=== PATIENT | female | born 1965 | race Caucasian/White ===

== ENCOUNTER 2022-08-03 20:48 | Outpatient (OUT) | payer BC, SELFPAY | END 2022-08-03 20:49 | LOC: SLEEP 20:49 | PROVIDERS: PCP Family Medicine; Visit Provider Family Medicine | DX: G47.33 Obstructive sleep apnea (adult) (pediatric) (principal) | CPT/HCPCS: 95811 ==

== ENCOUNTER 2022-09-28 09:16 | Outpatient (OUT) | payer BC, SELFPAY ==
[2022-09-28 09:52] LABS: Basophils Percent Auto 0.3 % (0.2-2.0); Eosinophils Absolute Auto 0.1 10^3/uL (0.0-0.7); Eosinophils Percent Auto 1.5 % (0.9-7.0); Hemoglobin 13.9 g/dL (12.0-16.0); Immature Granulocytes Abs Auto 0.03 10^3/uL (0.00-0.03); Immature Granulocytes Pct Auto 0.4 % (0.0-0.5); Lymphocytes Absolute Auto 1.2 10^3/uL (1.2-3.8); Lymphocytes Percent Auto 16.4 % (20.5-60.0); Mean Corpuscular HGB Conc 33.1 g/dL (29.9-35.2); Mean Corpuscular Hemoglobin 29.8 pg (26.7-34.0); Mean Corpuscular Volume 90.1 fL (81.0-99.0); Mean Platelet Volume 10.9 fL (9.5-13.5); Monocytes Absolute Auto 0.7 10^3/uL (0.3-0.8); Monocytes Percent Auto 9.6 % (1.7-12.0); Neutrophils Absolute Auto 5.2 10^3/uL (1.4-6.5); Neutrophils Percent Auto 71.8 % (43.0-75.0); Platelet Count 194 10^3/uL (150-450); Red Blood Count 4.66 10^6/uL (4.20-5.40); Red Cell Distribution Width 13.6 % (11.0-15.0); White Blood Count 7.2 10^3/uL (4.0-11.0)
[2022-09-28 10:13] LABS: Estimated Average Glucose 143 mg/dL; Glycohemoglobin A1C 6.6 % (4.5-6.2)
[2022-09-28 10:32] LABS: Free T4 1.08 ng/dL (0.76-1.46)
[2022-09-28 10:42] LABS: Alanine Aminotransferase 31 U/L (14-59); Albumin Level 4.1 g/dL (3.4-5.0); Alkaline Phosphatase 59 U/L (46-116); Anion Gap 13.8; Aspartate Amino Transferase 17 U/L (15-37); Bilirubin Total 0.4 mg/dL (0.2-1.0); Calcium 9.1 mg/dL (8.5-10.1); Carbon Dioxide 26.4 mmol/L (21.0-32.0); Chloride 105 mmol/L (98-107); Chol HDL Ratio 4.3; Cholesterol 201 mg/dL (<=200); Estimated GFR (African America >60 (>=60); Estimated GFR (Non-African Ame 57 (>=60); Free T3 2.15 pg/mL (2.18-3.98); Globulin 4.1 g/dL; Glucose 142 mg/dL (74-106); HDL Cholesterol 47 mg/dL (40-60); Potassium 4.2 mmol/L (3.5-5.1); Sodium 141 mmol/L (136-145); Thyroid Stimulating Hormone 2.233 uIU/mL (0.358-3.740); Total Protein 8.2 g/dL (6.4-8.2); Triglycerides 166 mg/dL (<=150); VLDL CHOLESTEROL 33.2 mg/dL
== END 2022-09-28 09:17 | disposition home or self-care (01) ==
LOC: LAB 09:20
PROVIDERS: PCP Family Medicine; Visit Provider Family Medicine
DX: Z00.00 Encounter for general adult medical examination without abnormal findings (principal); Z79.899 Other long term (current) drug therapy
CPT/HCPCS: 36415; 80053; 80061; 83036; 84439; 84443; 84481; 85025

== ENCOUNTER 2023-01-13 18:23 | Emergency (ER) | payer BC, SELFPAY ==
[2023-01-13 18:28] VITALS: BP 155/74; PULSE 78; RESP 18; TEMP 36.6; O2SAT 97; BMI 38.8
--- NOTE | 2023-01-13 18:46 | ED.GENADUL1 ---
HPI - General Adult General Chief complaint: Recheck/Abnormal Lab/Rx Stated complaint: HYPERGLYCEMIA, BLURRED VISION, SHAKES Time Seen by Provider: 01/13/23 18:42 Source: patient Mode of arrival: walk-in Limitations: no limitations History of Present Illness HPI narrative: Patient is a 57-year-old female who presents to the emergency department for the evaluation of elevated blood sugar, feeling shaky and having trouble concentrating while at work approximately 3 hours ago. She denies any complaints of pain or nausea at this time. She states she works at [employer] and was having trouble concentrating and making food. She states she felt very shaky, she had no syncope, chest pain, shortness of breath. She has had no recent illness, fevers, vomiting. She has a Dexcom for type 2 diabetes, her blood sugar was 180 at work, her just rechecked it at 110. She states that her vision was blurry, she has not had any loss of vision or unilateral weakness. No speech changes. Related Data Home Medications Medication Instructions Recorded Confirmed aripiprazole 5 mg tablet 5 mg PO DAILY 01/13/23 01/13/23 blood sugar diagnostic (OneTouch 01/13/23 01/13/23 Verio test strips) bupropion HCl 300 mg 24 hr tablet, 300 mg PO DAILY 01/13/23 01/13/23 extended release empagliflozin 25 mg tablet 25 mg PO DAILY 01/13/23 01/13/23 (Jardiance) flash glucose scanning reader 01/13/23 01/13/23 (FreeStyle Kirsten 2 [employer]) flash glucose sensor (FreeStyle 01/13/23 01/13/23 Kirsten 2 Sensor kit) hyoscyamine sulfate 0.125 mg 0.125 mg PO DAILY PRN dyspepsia 01/13/23 01/13/23 sublingual tablet metformin 500 mg tablet 500 mg PO DAILY 01/13/23 01/13/23 nabumetone 500 mg tablet 500 mg PO BID 01/13/23 01/13/23 pioglitazone 45 mg tablet 45 mg PO DAILY 01/13/23 01/13/23 sertraline 100 mg tablet 100 mg PO DAILY 01/13/23 01/13/23 simvastatin 20 mg tablet 20 mg PO DAILY 01/13/23 01/13/23 sitagliptin phosphate 100 mg 100 mg PO DAILY 01/13/23 01/13/23 tablet (Januvia) Allergies Allergy/AdvReac Type Severity Reaction Status Date / Time cephalexin [From Keflex] Allergy Intermediate Verified 01/13/23 18:33 lisinopril Allergy Intermediate Verified 01/13/23 18:33 Review of Systems ROS Constitutional Denies: fever or chills Eyes Reports: blurry vision Ears, nose, mouth, and throat Denies: throat pain or nasal congestion Cardiovascular Denies: chest pain Respiratory Denies: shortness of breath or cough Gastrointestinal Denies: abdominal pain, nausea, vomiting or diarrhea Musculoskeletal Denies: back pain or neck pain Integumentary/Breast Denies: rash Neurological Denies: headache Hematologic/Lymphatic Denies: easy bruising Exam Narrative Exam Narrative: Gen.: Awake, alert, in no distress Head: Normocephalic, atraumatic ENT: Moist mucous membranes Respiratory: No respiratory distress, lungs clear bilaterally Cardio: Regular rate and rhythm Extremities: Moves extremities equally, no injuries noted Psych: Normal mood and affect Neuro: No focal neuro deficit; clear speech, no facial drooping, moves all extremities equally. Patient is able to recount the events of her day and recite all of her medications without difficulty. Skin: Warm, dry, intact Constitutional Vital Signs, click to edit/add: Last Vital Signs Temp 97.9 F 01/13/23 18:28 Pulse 69 01/13/23 21:01 Resp 18 01/13/23 19:41 BP 142/82 H 01/13/23 21:01 Pulse Ox 100 01/13/23 21:01 O2 Del Method Room Air 01/13/23 18:28 Course Vital Signs Vital signs: Vital Signs Temperature 97.9 F 01/13/23 18:28 Pulse Rate 78 01/13/23 18:28 Respiratory Rate 18 01/13/23 18:28 Blood Pressure 155/74 H 01/13/23 18:28 Pulse Oximetry 97 01/13/23 18:28 Oxygen Delivery Method Room Air 01/13/23 18:28 Temperature 97.9 F 01/13/23 18:28 Pulse Rate 69 01/13/23 21:01 Respiratory Rate 18 01/13/23 19:41 Blood Pressure 142/82 H 01/13/23 21:01 Pulse Oximetry 100 01/13/23 21:01 Oxygen Delivery Method Room Air 01/13/23 18:28 Medical Decision Making MDM Narrative Medical decision making narrative: Patient with no unilateral weakness, speech changes, visual loss in the emergency department. She has stable vital signs, she denies chest pain, shortness of breath. CT of the brain is unremarkable, lab studies within normal limits, although her urine is concentrated and her BUN is slightly elevated. She was treated with IV fluids in the ER. She has no focal medical complaints in the emergency department. She is well-hydrated and nontoxic at time of discharge with stable vital signs. Follow-up with PCP, patient was instructed that if her symptoms are related to fluctuations in her blood sugar, she should make her PCP Dr. Parry aware tomorrow for any medication adjustments that need to be made. Her blood sugar was 75 per her Dexcom prior to discharge. She was instructed to eat and drink regularly, take her medications as scheduled and follow-up with her PCP. Return to the ER if symptoms change or worsen. Medical Records Medical records reviewed: Yes I reviewed the patient's medical records Lab Data Lab results reviewed: Yes I reviewed the patient's lab results Labs: Lab Results 01/13/23 01/13/23 Range/Units 19:10 19:17 WBC 8.9 (4.0-11.0) 10^3/uL RBC 4.52 (4.20-5.40) 10^6/uL Hgb 13.8 (12.0-16.0) g/dL Hct 42.1 (36.0-48.0) % MCV 93.1 (81.0-99.0) fL MCH 30.5 (26.7-34.0) pg MCHC 32.8 (29.9-35.2) g/dL RDW 13.1 (11.0-15.0) % Plt Count 210 (150-450) 10^3/uL MPV 11.7 (9.5-13.5) fL Neut % (Auto) 67.8 (43.0-75.0) % Lymph % (Auto) 18.7 L (20.5-60.0) % [place] % (Auto) 11.8 (1.7-12.0) % Eos % (Auto) 1.1 (0.9-7.0) % Baso % (Auto) 0.2 (0.2-2.0) % Neut # (Auto) 6.0 (1.4-6.5) 10^3/uL Lymph # (Auto) 1.7 (1.2-3.8) 10^3/uL [place] # (Auto) 1.1 H (0.3-0.8) 10^3/uL Eos # (Auto) 0.1 (0.0-0.7) 10^3/uL Baso # (Auto) 0.0 (0.0-0.1) 10^3/uL Abs Immat Gran (auto) 0.04 H (0.00-0.03) 10^3/uL Imm/Tot Granulo (auto) 0.4 (0.0-0.5) % Sodium 139 (136-145) mmol/L Potassium 4.1 (3.5-5.1) mmol/L Chloride 104 (98-107) mmol/L Carbon Dioxide 24.5 (21.0-32.0) mmol/L Anion Gap 14.6 BUN 22.0 H (7.0-18.0) mg/dL Creatinine 1.05 H (0.55-1.02) mg/dL Est GFR ( Amer) >60 (>=60) Est GFR (Non-Af Amer) 54 L (>=60) BUN/Creatinine Ratio 21.0 Glucose 119 H (74-106) mg/dL Lactate 1.5 (0.4-2.0) mmol/L Calcium 9.1 (8.5-10.1) mg/dL Total Bilirubin 0.5 (0.2-1.0) mg/dL AST 18 (15-37) U/L ALT 30 (14-59) U/L Alkaline Phosphatase 62 (46-116) U/L Troponin I High Sens <4.0 L (4.0-51.3) pg/mL Total Protein 7.7 (6.4-8.2) g/dL Albumin 4.2 (3.4-5.0) g/dL Globulin 3.5 g/dL Albumin/Globulin Ratio 1.2 TSH 2.118 (0.358-3.740) uIU/mL Urine Color Lt. yellow (YELLOW) Urine Clarity Clear (CLEAR) Urine pH 6.0 (5.0-9.0) Ur Specific [place] <=1.005 A (1.005-1.025) Urine Protein Negative (NEG/TRACE) mg/dL Urine Glucose (UA) >=1000 A (NEGATIVE) mg/dL Urine Ketones Negative (NEGATIVE) mg/dL Urine Occult Blood Negative (NEGATIVE) Urine Nitrite Negative (NEGATIVE) Urine Bilirubin Negative (NEGATIVE) Urine Urobilinogen 0.2 (0.2-1.0) EU/dL Ur Leukocyte Esterase Negative (NEGATIVE) Acetone, Qual Negative (NEGATIVE) Imaging Data CT scan - head: Attestation: I have reviewed the pertinent imaging results. Radiologist's impression: Procedure: CT head/brain wo con EXAM: CT head/brain wo con; [id number] REASON FOR EXAM: Blurry vision COMPARISON: None. TECHNIQUE: Axial CT images of the head obtained without contrast. Multiplanar reformats generated at the scanner. Dose reduction technique used: Automated exposure control and/or adjustment of the mA and/or kV according to patient size and/or use of iterative reconstruction technique. FINDINGS: Parenchyma: -Normal parenchymal pattern. -No midline shift or mass effect. Basilar cisterns are patent. -No acute intracranial hemorrhage. -No loss of cortical london-white differentiation to indicate acute cortical infarct. Extra-axial spaces: No extra-axial fluid collection or hemorrhage. Ventricles: Normal in size and symmetric. Paranasal sinuses: Visualized paranasal sinuses are clear. Mastoid air cells: Visualized mastoids are clear. Visualized Orbits: No acute abnormality. Osseous: No acute findings. Soft tissues: No acute abnormality. IMPRESSION: 1. No acute intracranial abnormality demonstrated. 2. The visualized orbits are are within normal limits. Electronically authenticated by: MELINA GUTIERREZ Date: 01/13/2023 19:58 ECG Data Attestation: I personally reviewed and interpreted this ECG as follows: (Normal sinus rhythm at a rate of 67, no acute ST elevation or ectopy. EKG reviewed by attending physician) Discharge Plan Discharge Chief Complaint: Recheck/Abnormal Lab/Rx Clinical Impression: Blurry vision, Shakiness Patient Disposition: Home, Self-Care Time of Disposition Decision: 20:52 Condition: Good Prescriptions / Home Meds: No Action (DME) OneTouch Verio test strips Strip MISCELLANEOUS aripiprazole 5 mg tablet 5 mg PO DAILY bupropion HCl 300 mg tablet extended release 24 hr 300 mg PO DAILY Jardiance 25 mg tablet 25 mg PO DAILY hyoscyamine sulfate 0.125 mg tablet, sublingual 0.125 mg PO DAILY PRN (Reason: dyspepsia) (DME) FreeStyle Kirsten 2 Sensor Kit MISCELLANEOUS (DME) FreeStyle Kirsten 2 [employer] Misc MISCELLANEOUS metformin 500 mg tablet 500 mg PO DAILY nabumetone 500 mg tablet 500 mg PO BID pioglitazone 45 mg tablet 45 mg PO DAILY sertraline 100 mg tablet 100 mg PO DAILY simvastatin 20 mg tablet 20 mg PO DAILY Januvia 100 mg tablet 100 mg PO DAILY Instructions: Weakness (ED) Stand Alone Forms: Portal Instructions Referrals: Florencio Parry MD [Primary Care Provider] - As soon as possible Discharge Date/Time: 01/13/23 21:05
--- NOTE | 2023-01-13 18:57 | ECG_ITS ---
The [facility] Test Date: 2023-01-13 Pat Name: RJ PINZON Department: Room: - Gender: Female Clinical Trials Manager: : 1965 Requested By: JAJA DILL Order Number: [id number] Reading MD: JAJA DILL Measurements Intervals [place] Rate: 67 P: 56 NE: 158 QRS: 40 QRSD: 88 T: 31 QT: 404 QTc: 419 Interpretive Statements 1100 Sinus rhythm 9110 normal ECG No previous ECG available for comparison Electronically Signed On 01-14-2023 7:20:22 EST by JAJA DILL
--- NOTE | 2023-01-13 18:58 | CT_ITS ---
The [address] [address] Patient Name: RJ PINZON MRN: [id number] date: 1965 Sex: F Assigned Patient Location: ER Current Patient Location: ER Accession/Order Number: [id number] Exam Date: 01/13/2023 19:25 Report Date: 01/13/2023 19:58 At the request of: RUBEN FROST Procedure: CT head/brain wo con EXAM: CT head/brain wo con; [id number] REASON FOR EXAM: Blurry vision COMPARISON: None. TECHNIQUE: Axial CT images of the head obtained without contrast. Multiplanar reformats generated at the scanner. Dose reduction technique used: Automated exposure control and/or adjustment of the mA and/or kV according to patient size and/or use of iterative reconstruction technique. FINDINGS: Parenchyma: -Normal parenchymal pattern. -No midline shift or mass effect. Basilar cisterns are patent. -No acute intracranial hemorrhage. -No loss of cortical london-white differentiation to indicate acute cortical infarct. Extra-axial spaces: No extra-axial fluid collection or hemorrhage. Ventricles: Normal in size and symmetric. Paranasal sinuses: Visualized paranasal sinuses are clear. Mastoid air cells: Visualized mastoids are clear. Visualized Orbits: No acute abnormality. Osseous: No acute findings. Soft tissues: No acute abnormality. CT/CT head/brain wo con IMPRESSION: 1. No acute intracranial abnormality demonstrated. 2. The visualized orbits are are within normal limits. Electronically authenticated by: MELINA GUTIERREZ Date: 01/13/2023 19:58
--- NOTE | 2023-01-13 19:25 | PC.NURSE ---
Patient reports dizziness and visual changes; sudden onset, symptoms resolving. Denies any recent illness, reports I've been under a lot of stress .
[2023-01-13 19:27] LABS: Basophils Percent Auto 0.2 % (0.2-2.0); Eosinophils Absolute Auto 0.1 10^3/uL (0.0-0.7); Eosinophils Percent Auto 1.1 % (0.9-7.0); Hematocrit 42.1 % (36.0-48.0); Hemoglobin 13.8 g/dL (12.0-16.0); Immature Granulocytes Abs Auto 0.04 10^3/uL (0.00-0.03); Immature Granulocytes Pct Auto 0.4 % (0.0-0.5); Lymphocytes Absolute Auto 1.7 10^3/uL (1.2-3.8); Lymphocytes Percent Auto 18.7 % (20.5-60.0); Mean Corpuscular HGB Conc 32.8 g/dL (29.9-35.2); Mean Corpuscular Hemoglobin 30.5 pg (26.7-34.0); Mean Corpuscular Volume 93.1 fL (81.0-99.0); Mean Platelet Volume 11.7 fL (9.5-13.5); Monocytes Absolute Auto 1.1 10^3/uL (0.3-0.8); Monocytes Percent Auto 11.8 % (1.7-12.0); Neutrophils Percent Auto 67.8 % (43.0-75.0); Platelet Count 210 10^3/uL (150-450); Red Blood Count 4.52 10^6/uL (4.20-5.40); Red Cell Distribution Width 13.1 % (11.0-15.0); White Blood Count 8.9 10^3/uL (4.0-11.0)
[2023-01-13] MEDS: 0.9 % SODIUM CHLORIDE 1,000 ML 999 ML IV (19:38)
[2023-01-13 19:41] VITALS: BP 154/88; PULSE 68; RESP 18; O2SAT 100
[2023-01-13 19:44] LABS: Lactate/Lactic Acid 1.5 mmol/L (0.4-2.0)
[2023-01-13 19:44] LABS: Bilirubin Urine NEGATIVE (NEGATIVE); Blood Urine NEGATIVE (NEGATIVE); Clarity Urine CLEAR (CLEAR); Color Urine LT. YELLOW (YELLOW); Glucose Urine UA >=1000 mg/dL (NEGATIVE); Ketones Urine NEGATIVE (NEGATIVE); Leukocyte Esterase Urine NEGATIVE (NEGATIVE); Nitrite Urine NEGATIVE (NEGATIVE); Protein Urine NEGATIVE (NEG/TRACE); Specific Gravity Urine <=1.005 (1.005-1.025); Urobilinogen Urine 0.2 EU/dL (0.2-1.0)
[2023-01-13 19:51] LABS: Alanine Aminotransferase 30 U/L (14-59); Albumin Globulin Ratio 1.2; Albumin Level 4.2 g/dL (3.4-5.0); Alkaline Phosphatase 62 U/L (46-116); Anion Gap 14.6; Aspartate Amino Transferase 18 U/L (15-37); Bilirubin Total 0.5 mg/dL (0.2-1.0); Calcium 9.1 mg/dL (8.5-10.1); Carbon Dioxide 24.5 mmol/L (21.0-32.0); Chloride 104 mmol/L (98-107); Estimated GFR (African America >60 (>=60); Estimated GFR (Non-African Ame 54 (>=60); Globulin 3.5 g/dL; Glucose 119 mg/dL (74-106); Potassium 4.1 mmol/L (3.5-5.1); Sodium 139 mmol/L (136-145); Thyroid Stimulating Hormone 2.118 uIU/mL (0.358-3.740); Total Protein 7.7 g/dL (6.4-8.2); Troponin I High Sensitivity <4.0 pg/mL (4.0-51.3)
[2023-01-13 19:52] LABS: Urine Microscopic Indicated NO
[2023-01-13 20:37] LABS: Acetone NEGATIVE (NEGATIVE)
[2023-01-13 21:01] VITALS: BP 142/82; PULSE 69; O2SAT 100
== END 2023-01-13 21:05 | disposition home or self-care (01) ==
PROVIDERS: Physician Assistant; Emergency Provider Internal Medicine; PCP Family Medicine
DX: H53.8 Other visual disturbances (principal); G25.89 Other specified extrapyramidal and movement disorders; E11.9 Type 2 diabetes mellitus without complications; Z79.899 Other long term (current) drug therapy; Z79.84 Long term (current) use of oral hypoglycemic drugs
CPT/HCPCS: 36415; 70450; 80053; 81003; 82009; 83605; 84443; 84484; 85025; 93005; 99285

== ENCOUNTER 2023-04-12 12:08 | Outpatient (REF) | payer BC, SELFPAY ==
[2023-04-12 13:05] LABS: Influenza Virus A Antigen Negative; Influenza Virus B Antigen Negative; Internal Control Within Normal Limits; SARS-CoV-2 Ag NEGATIVE (NEGATIVE)
[2023-04-12 15:37] LABS: SARS-CoV-2 NAA NOT DETECTED (NOT DETECTE)
== END 2023-04-12 12:09 | disposition home or self-care (01) ==
LOC: LAB 12:08
PROVIDERS: PCP Family Medicine; Visit Provider Family Medicine
DX: J01.90 Acute sinusitis, unspecified (principal)
CPT/HCPCS: 87635; 87804; 87811

== ENCOUNTER 2023-05-12 14:40 | Emergency (ER) | payer BC, SELFPAY ==
[2023-05-12 14:45] VITALS: BP 150/90; PULSE 87; TEMP 36.6; O2SAT 96; BMI 38.7
--- NOTE | 2023-05-12 14:57 | ED.EXTPRO1 ---
HPI - Extremity Problem General Chief complaint: Extremity Problem, Nontraumatic Stated complaint: LOWER EXTREMITY PAIN L LEG Time Seen by Provider: 05/12/23 14:47 Source: patient Mode of arrival: walk-in Limitations: no limitations History of Present Illness HPI Narrative: 57-year-old female presents for left knee pain. She originally injured it in the fall 2021. She did not have any fractures and has not had surgery. She had her third cortisone injection 3 days ago but it does not seem to be helping and it seemed to get somewhat worse. No fever. No new injury. Pain is moderate and worse in certain positions. Related Data Home Medications ?Medication ?Instructions ?Recorded ?Confirmed aripiprazole 5 mg tablet 5 mg PO DAILY 01/13/23 01/13/23 blood sugar diagnostic (OneTouch 01/13/23 01/13/23 Verio test strips) bupropion HCl 300 mg 24 hr tablet, 300 mg PO DAILY 01/13/23 01/13/23 extended release empagliflozin 25 mg tablet 25 mg PO DAILY 01/13/23 01/13/23 (Jardiance) flash glucose scanning reader 01/13/23 01/13/23 (FreeStyle Kirsten [address] [place]) flash glucose sensor ([employer]Ign[employer]Style 01/13/23 01/13/23 Kirsten 2 Sensor kit) hyoscyamine sulfate 0.125 mg 0.125 mg PO DAILY PRN dyspepsia 01/13/23 01/13/23 sublingual tablet metformin 500 mg tablet 500 mg PO DAILY 01/13/23 01/13/23 nabumetone 500 mg tablet 500 mg PO BID 01/13/23 01/13/23 pioglitazone 45 mg tablet 45 mg PO DAILY 01/13/23 01/13/23 sertraline 100 mg tablet 100 mg PO DAILY 01/13/23 01/13/23 simvastatin 20 mg tablet 20 mg PO DAILY 01/13/23 01/13/23 sitagliptin phosphate 100 mg 100 mg PO DAILY 01/13/23 01/13/23 tablet (Januvia) Previous Rx's ?Medication ?Instructions ?Recorded acetaminophen 300 mg-codeine 30 mg 1 tab PO Q6H PRN pain 5 days #20 05/12/23 tablet tabs Allergies Allergy/AdvReac Type Severity Reaction Status Date / Time cephalexin [From Keflex] Allergy Intermediate Verified 05/12/23 14:44 lisinopril Allergy Intermediate Verified 05/12/23 14:44 Review of Systems ROS Narrative A ten point review of systems is negative except as noted above. Exam Narrative Exam Narrative: Nurses note and vital signs reviewed and patient is not hypoxic. General: The patient appears well and in no apparent distress. Patient is resting comfortably on cart. Skin: Warm, dry, no pallor noted. There is no rash noted. Head: Normocephalic, atraumatic Eye: Normal conjunctiva, no drainage Ears, Nose, Mouth, and Throat: oral mucosa is moist. Nares patent. Cardiovascular: Regular Rate and Rhythm Respiratory: Patient is in no distress, no accessory muscle use, lungs are clear to auscultation, no wheezing, rales or rhonchi Back: non-tender GI: Soft and nontender Musculoskeletal: The left knee is not erythematous and it is not visibly swollen. The knee joint is stable. It is not warm to touch. Neurological: A&O, normal speech Psychiatric: Cooperative Constitutional Vital Signs, click to edit/add: Last Vital Signs Temp 98 F 05/12/23 14:45 Pulse 87 05/12/23 14:45 Resp 18 05/12/23 14:45 BP 150/90 H 05/12/23 14:45 Pulse Ox 96 05/12/23 14:45 O2 Del Method Room Air 05/12/23 14:45 Course Vital Signs Vital signs: Vital Signs Temperature 98 F 05/12/23 14:45 Pulse Rate 87 05/12/23 14:45 Respiratory Rate 18 05/12/23 14:45 Blood Pressure 150/90 H 05/12/23 14:45 Pulse Oximetry 96 05/12/23 14:45 Oxygen Delivery Method Room Air 05/12/23 14:45 Temperature 98 F 05/12/23 14:45 Pulse Rate 87 05/12/23 14:45 Respiratory Rate 18 05/12/23 14:45 Blood Pressure 150/90 H 05/12/23 14:45 Pulse Oximetry 96 05/12/23 14:45 Oxygen Delivery Method Room Air 05/12/23 14:45 MDM - Extremity (Nontraumatic) MDM Narrative Medical decision making narrative: X-ray shows no acute findings. She was given IM Toradol and prescribed Tylenol 3. She will follow-up with her orthopedist. I have no clinical suspicion of an infection. Treatment diagnosis and follow-up were discussed with the patient. Differential Diagnosis Differential diagnosis: Likely other (Chronic knee pain, knee strain, effusion, septic arthritis) Imaging Data Left knee x-ray: Radiologist's impression: ITS Impressions Knee X-Ray 05/12/23 15:12 IMPRESSION: No acute radiographic abnormality Electronically authenticated by: MONSE DAWSON Date: 05/12/2023 15:43 Discharge Plan Discharge Stand Alone Forms: Portal Instructions Chief Complaint: Extremity Problem, Nontraumatic Clinical Impression: Knee pain, left Patient Disposition: Home, Self-Care Time of Disposition Decision: 16:06 Condition: Good Mode of Transportation: Private Vehicle Prescriptions / Home Meds: New acetaminophen-codeine 300-30 mg tablet 1 tab PO Q6H PRN (Reason: pain) 5 Days Qty: 20 0RF No Action (DME) OneTouch Verio test strips Strip MISCELLANEOUS aripiprazole 5 mg tablet 5 mg PO DAILY bupropion HCl 300 mg tablet extended release 24 hr 300 mg PO DAILY Jardiance 25 mg tablet 25 mg PO DAILY hyoscyamine sulfate 0.125 mg tablet, sublingual 0.125 mg PO DAILY PRN (Reason: dyspepsia) (DME) FreeStyle Kirsten 2 Sensor Kit MISCELLANEOUS (DME) FreeStyle Kirsten [address] [place] Misc MISCELLANEOUS metformin 500 mg tablet 500 mg PO DAILY nabumetone 500 mg tablet 500 mg PO BID pioglitazone 45 mg tablet 45 mg PO DAILY sertraline 100 mg tablet 100 mg PO DAILY simvastatin 20 mg tablet 20 mg PO DAILY Januvia 100 mg tablet 100 mg PO DAILY Print Language: German Instructions: Knee Pain (ED) Additional Instructions: Follow-up with your orthopedist if there is no improvement. Referrals: Florencio Parry MD [Primary Care Provider] - 1 week
--- NOTE | 2023-05-12 15:12 | XR_ITS ---
The [address] [address] Patient Name: RJ PINZON MRN: [id number] date: 1965 Sex: F Assigned Patient Location: ER Current Patient Location: ER Accession/Order Number: [id number] Exam Date: 05/12/2023 15:12 Report Date: 05/12/2023 15:43 At the request of: SOBEIDA JEFFERSON Procedure: XR knee LT 3V PROCEDURE: XR knee LT 3V COMPARISON: None. HISTORY: Atraumatic pain FINDINGS: BONES:No fracture, acute abnormality, or significant arthropathy. Enthesopathic spurring of the patella at the quadriceps insertion SOFT TISSUES:Negative. No visible soft tissue swelling. EFFUSION:None visible. OTHER: Negative. XR/XR knee LT 3V IMPRESSION: No acute radiographic abnormality Electronically authenticated by: MONSE DAWSON Date: 05/12/2023 15:43
[2023-05-12] MEDS: KETOROLAC TROMETHAMINE 60 MG/2 ML VIAL IM (16:15)
== END 2023-05-12 16:28 | disposition home or self-care (01) ==
PROVIDERS: Emergency Provider Emergency Medicine; PCP Family Medicine
DX: M25.562 Pain in left knee (principal); Z79.899 Other long term (current) drug therapy; Z79.84 Long term (current) use of oral hypoglycemic drugs
CPT/HCPCS: 73562; 96372; 99284

== ENCOUNTER 2023-10-21 16:19 | Outpatient (OUT) | payer BC, SELFPAY ==
--- OUTSIDE RECORDS SUMMARY | 2023-10-21 16:25 | XMS_ITS | CCD ---
Author Organization [facility] Care Team Providers Care Inspector Air Car[employer] Name Role Phone Dorys Flannery Unavailable Liliya Fletcher Unavailable MD Jaja Parry Primary Care Provider [phone] HAKEEM Fletcher Attending Provider Hudson Gu Unavailable FUENTES ., DR WILKINSON Admitting Unavailable HOY ., DR WILKINSON Attending Unavailable HOY ., DR WILKINSON Primary Care Unavailable HOY ., DR WILKINSON Consulting Unavailable HOY ., DR WILKINSON Admitting Unavailable HOY ., DR WILKINSON Attending Unavailable HOY ., DR WILKINSON Primary Care Unavailable HOY ., DR WILKINSON Consulting Unavailable LILIYA HUTTON Admitting Unavailable LILIYA HUTTON Attending Unavailable FUENTES ., DR WILKINSON Primary Care Unavailable HEMANT, DR NOHEMY Johnson Consulting Unavailable LILIYA HUTTON Consulting Unavailable HUDSON GU Admitting Unavailable HUDSON GU Attending Unavailable FUENTES ., DR WILKINSON Primary Care Unavailable VALORIE PEREZ Attending Unavailable Jaja Parry Primary Care Unavailable Gregg Nassar Attending Unavailable Gregg Nassar Admitting Unavailable MD Jaja Parry Primary Care Provider [phone] MD Gregg Nassar Attending Provider MD Jaja Parry Primary Care Provider [phone] MD Gregg Nassar Attending Provider Allergies Allergy Classification Reported Allergen(s) Allergy Type Date of Onset Reaction(s) Facility Angiotensin Converting Enzyme (ROSS) Inhibitors (1 source) Lisinopril Drug Allergy 4 Rash [facility] Cephalosporins (antibiotic) (1 source) Cephalexin Drug Allergy 4 Unknown Reaction [facility] (5 sources) Cephalexin; Translations: [Keflex] Drug Allergy 4 Unknown [facility] (1 source) Corticosteroids Drug allergy (disorder) 4 [facility] (1 source) DULoxetine Drug Allergy 4 [facility] (4 sources) Cephalexin Drug Allergy 4 Unknown Reaction [facility] (4 sources) Lisinopril Drug Allergy 4 Rash [facility] Medications Current Medications Medication Drug Class(es) Dates Sig (Normalized) Sig (Original) ARIPiprazole 5 mg oral tablet (10 sources) Atypical Antipsychotic Start: 05-09-2023 take 1 tablet by mouth once daily Aripiprazole Active 5 MG PO Daily May 09, 2023 12:00am FreeTextSi tablet Orally Once a day; Note: Source Status: Taking; Provider: Marga Flores ( ) take 1 tablet by larissa th every twenty-four hours ARIPiprazole 5 MG 1 tablet Orally Once a day Active Abilify Active 24 hr buPROPion hydrochloride 300 mg extended release oral tablet (8 sources) Aminoketone Start: 05-09-2023 take 1 tablet by mouth once daily in the morning Bupropion Hcl Active 1 TAB PO Daily May 09, 2023 12:00am [employer] tablet in the morning Orally Once a day; Note: Source Status: Taking; Provider: Marga Flores ( ) take 1 tablet by larissa th every twenty-four hours buPROPion HCl ER (XL) 300 MG 1 tablet in the morning Orally Once a day Active empagliflozin 25 mg oral tablet (6 sources) Sodium-Glucose Cotransporter 2 Inhibitor Start: 05-09-2023 take 1 tablet by mouth once daily Empagliflozin (Jardiance) 25 mg tablet Active 25 MG PO Daily May 09, 2023 12:00am lidocaine 0.05 mg/mg medicated patch (2 sources) Antiarrhythmic, Amide Local Anesthetic Start: 03-03-2022 Lidocaine 5 % 1 patch remove after 12 hours Externally Once a day for 30 days Feb, Active metFORMIN hydrochloride 500 mg oral tablet (10 sources) Biguanide Start: 05-09-2023 take 1 tablet by mouth once daily Metformin Active 500 MG PO Daily May 09, 2023 12:00am Free[employer] tablet with a meal Orally Once a day; Note: Source Status: Taking; Provider: Marga Flroes ( ) take 1 tablet by larissa th every twenty-four hours metFORMIN HCl 500 MG 1 tablet with a meal Orally Once a day Active metFORMIN HCl Ac tive nabumetone 500 mg oral tablet (8 sources) Nonsteroidal Anti-inflammatory Drug Start: 05-09-2023 take 1 tablet by mouth twice daily Nabumetone Active 1 TAB PO Twice daily May 09, 2023 12:00am FreeTextSi tablet Orally Twice a day; Note: Source Status: Taking; Provider: Marga Flores ( ) take 1 tablet by larissa th every twelve hours Nabumetone 500 MG 1 tablet Orally Twice a day Active ondansetron 4 mg oral tablet (1 source) Serotonin-3 Receptor Antagonist Start: 2021 take 1 tablet by mouth every eight hours as needed Zofran ODT 4 MG 1 tablet on the tongue and allow to dissolve Orally every 8 hrs as needed for 4 days Sep, Active pioglitazone 45 mg oral tablet (10 sources) Peroxisome Proliferator Receptor alpha Agonist, Peroxisome Proliferator Receptor gamma Agonist, Thiazolidinedione Start: 05-09-2023 take 1 tablet by mouth once daily Pioglitazone Active 45 MG PO Daily May 09, 2023 12:00am FreeTextSi tablet Orally Once a day; Note: Source Status: Taking; Provider: Marga Flores ( ) take 1 tablet by larissa th every twenty-four hours Pioglitazone HCl 45 MG 1 tablet Orally Once a day Active Actos Active sertraline 100 mg oral tablet (10 sources) Serotonin Reuptake Inhibitor Start: 05-09-2023 take 1 tablet by mouth once daily Sertraline Active 100 MG PO Daily May 09, 2023 12:00am FreeTextSi tablet Orally Once a day; Note: Source Status: Taking; Provider: Marga Flores ( ) take 1 tablet by mouth once rebeca y Sertraline HCl 100 MG 1 tablet Orally Once a day Active Zoloft Active Simvastatin (4 sources) HMG-CoA Reductase Inhibitor Simvastatin Active SITagliptin 100 mg oral tablet (8 sources) Dipeptidyl Peptidase 4 Inhibitor Start: take 1 tablet by mouth once daily Sitagliptin Phosphate Active 1 TAB PO Daily May 09, 2023 12:00am FreeTextSi tablet Orally Once a day; Note: Source Status: Taking; Provider: Marga Flores ( ) take 1 tablet by larissa th every twenty-four hours Januvia 100 MG 1 tablet Orally Once a day Active Tart Thapa (4 sources) Tart Thapa Acti ve traMADol hydrochloride 50 mg oral tablet (7 sources) Opioid Agonist Start: 10-13-2023 take 50 mg by mouth twice daily Tramadol Active 50 MG PO Twice daily 30 October 13, 2023 12:00am Start: 05-12-2023 End: 07-12-2023 take 50 mg by mouth every four to six hours Tramadol Discontinued 50 MG PO EVERY 4-6 HOURS 42 7 May 12, 2023 12:00am July 12, 2023 9:53am dispense #42 (forty two) DX: S83.207A Vit C-S.Xxuhpf-Oqatos-Cgnlx Sd (Tart Thapa) [id number] mg capsule (4 sources) Start: 07-12-2023 Vit C-S.Thapa -Celery-Grape Sd (Tart Thapa) [id number] mg capsule Active CAP PO July 12, 2023 12:00am Completed/Discontinued Medications Medication Drug Class(es) Dates Sig (Normalized) Sig (Original) triamcinolone acetonide 40 mg/ml injectable suspension (3 sources) Corticosteroid Start: 03-31-2022 Kenalog-40 Jul, 40 mg Problems Active Problems Problem Classification Problem Date Documented Date Episodic/Chronic Diabetes mellitus with complications (1 source) Type 2 diabetes mellitus with hyperglycemia; Translations: [TYPE 2 DM W/HYPERGLYCEMIA] Onset: 10-07-2021 Chronic Disorders of lipid metabolism (1 source) Hyperlipidemia, unspecified; Translations: [HYPERLIPIDEMIA UNSPECIFIED] Onset: 10-07-2021 Chronic Joint disorders and dislocations; trauma-related (18 sources) Unspecified tear of unspecified meniscus, current injury, left knee, initial encounter; Translations: [Unspecified tear of unspecified meniscus, current injury, left knee, subsequent encounter] Onset: 02-25-2022 Episodic Osteoarthritis (20 sources) Osteoarthritis of left knee joint; Translations: [Unilateral primary osteoarthritis, left knee] Onset: 03-09-2022 Chronic Other nervous system disorders (8 sources) Other chronic pain; Translations: [Other chronic pain] Onset: 07-12-2023 06-30-2023 Chronic Other nervous system disorders (4 sources) Chronic pain; Translations: [Other chronic pain] 06-30-2023 Chronic Other non-traumatic joint disorders (7 sources) Pain in left knee; Translations: [PAIN IN LEFT KNEE] Onset: 02-22-2022 Episodic Other non-traumatic joint disorders (13 sources) Pain in unspecified knee; Translations: [Knee pain] 06-17-2023 Episodic Residual codes; unclassified (4 sources) Obstructive sleep apnea (adult) (pediatric); Translations: [OBSTRUCTIVE SLEEP APNEA] Onset: 06-23-2022 Chronic Superficial injury; contusion (17 sources) Contusion of left knee, initial encounter; Translations: [Contusion of left knee] Episodic Past or Other Problems Problem Classification Problem Date Documented Da te Episodic/Chronic Deficiency and other anemia (1 source) Anemia, unspecified; Translations: [ANEMIA UNSPECIFIED] Onset: 10-07-2021 Episodic Immunizations and screening for infectious disease (1 source) Contact with and (suspected) exposure to other viral communicable diseases Onset: 2021 Resolved: 2021 Episodic Residual codes; unclassified (1 source) Edema, unspecified; Translations: [EDEMA UNSPECIFIED] Onset: 02-25-2022 Episodic Sprains and strains (1 source) Strain of other muscle(s) and tendon(s) at lower leg level, left leg, initial encounter; Translations: [STRAIN OTH MSC TEND LOW LT LEG INIT] Onset: 02-25-2022 Episodic Viral infection (1 source) COVID-19 Onset: 2021 Resolved: 2021 Results Test Name Value Interpretation Reference Range Facility MRI KNEE LT WO CONon 023 MRI KNEE LT WO CON EXAMINATION: MRI KNEE LT WO CON HISTORY: Pain of left knee joint ; acute anterior left knee pain after falling and landing on knee COMPARISON: No relevant comparison available. TECHNIQUE: A complete multi-planar MRI was performed. FINDINGS: MEDIAL COMPARTMENT MEDIAL MENISCUS: Undersurface tear posterior horn. Intrasubstance degeneration involving body and posterior junction. CARTILAGE: No visible defect. BONES: No marrow pathology, fracture, or significant arthropathy. MCL AND MEDIAL CAPSULE: Grade I sprain of the medial collateral ligament. LATERAL COMPARTMENT LATERAL MENISCUS: No visible tear or significant degeneration. CARTILAGE: No visible defect. BONES: No marrow pathology, fracture, or significant arthropathy. LCL/POSTEROLAT COMPLEX: Normal lateral collateral ligament, fascicles, lateral capsule and ligaments. ANTERIOR COMPARTMENT PATELLA: No marrow pathology, fracture, or significant arthropathy. CARTILAGE: Marked thinning of cartilage overlying medial facet. TENDONS: Normal. EFFUSION: None. No synovitis or loose bodies. ACL: Normal appearing ligament. PCL: Normal appearing ligament. MENISCOFEMORAL: Normal meniscofemoral ligaments. OTHER: Subcutaneous edema within fat anterior to patella and patellar tendon. IMPRESSION: 1. Medial meniscus posterior horn undersurface tear. 2. Medial collateral ligament mild strain. 3. Marked thinning of cartilage overlying medial facet of patella. 4. Subcutaneous edema within fat anterior to the knee consistent with patient's history. Electronically authenticated by: NOHEMY MARCOS Date: 2022-02-22 08:51 Normal [facility] XR knee LT 4V*on 12-12-2021 XR knee LT 4V* [facility] Other XR knee LT 4V* [facility] Other XR knee LT 4V* [address] [place] [address] [facility] Other XR knee LT 4V* [place] [address] No [facility] Other XR knee LT 4V* XRay Report [employer] Other XR knee LT 4V* Signed [employer] Other XR knee LT 4V* Patient: Susanne Clark MR#: [id number] Bruin [facility] Other XR knee LT 4V* [id number] [employer] Other XR knee LT 4V* : 1965 Acct:[id number] [employer] Other XR knee LT 4V* Age/Sex: 56 / F ADM Date: 12/12/21 [employer] Other XR knee LT 4V* Loc: XDUCLY Room: Type: REG CLI [employer] Other XR knee LT 4V* Attending Dr: Liliya PALACIO [employer] Other XR knee LT 4V* Copies to: HAKEEM Lim [employer] Other XR knee LT 4V* Ordering Provider: HAKEEM Lim [employer] Other XR knee LT 4V* Date of Service: 12/12/21 [employer] Other XR knee LT 4V* XR/XR knee LT 4V*: Acute pain of left knee [employer] Other XR knee LT 4V* XR knee LT 4V* 12/12/2021 12:41 PM [employer] Other XR knee LT 4V* SIGNS AND SYMPTOMS: Left knee pain after fall [employer] Other XR knee LT 4V* PROTOCOL: Frontal, lateral, and oblique radiographs of the left knee [employer] Other XR knee LT 4V* COMPARISON: None [employer] Other XR knee LT 4V* FINDINGS: [facility] [employer] Other XR knee LT 4V* There is mild narrowing of the patellofemoral joint space with minimal narrowing of the medial [employer] Other XR knee LT 4V* weightbearing joint space. There is no evidence of fracture. No dislocation or subluxation. No [employer] Other XR knee LT 4V* joint effusion. No significant soft tissue swelling. [employer] Other XR knee LT 4V* XR/XR knee LT 4V* [employer] Other XR knee LT 4V* IMPRESSION: [employer] Other XR knee LT 4V* No acute bony injury. [employer] Other XR knee LT 4V* Mild degenerative changes are noted, as above. [employer] Other XR knee LT 4V* Impression dictated by: Bernardo Camacho M.D.12/12/2021 12:59 PM [employer] Other XR knee LT 4V* Dictation Location: [place] [address] [employer] Other XR knee LT 4V* Transcribed By: PWS 12/12/21 1259 [employer] Other XR knee LT 4V* Dictated By: Bernardo Camacho II, MD 12/12/21 1258 [employer] Other XR knee LT 4V* Signed By: [employer] Other XR knee LT 4V* 12/12/21 1259 [employer] Other SARS-CoV-2 (COVID-19) RNA NA A+probe Ql (Resp)on 2021 SARS-CoV-2 (COVID-19) RNA ALYSSA+probe Ql (Unsp spec) Positive [employer] Other T4 [facility] 10-06-2021 T4 [Mass/Vol] 7.2 ug/dL Normal 4.5-12.0 [facility] Comment on above: Performed By: #### T 4LC #### [facility] [address] [place] [address] Dr. Yilan Ceballos VIT D 25-OH [facility] 2021 Vitamin D, 25-Hydroxy 33.8 ng/mL Normal 30.0-100.0 [facility] Comment on above: Result Comment: Divya min D deficiency has been defined by the [place] of [employer] and an Endocrine Society practice guideline as a level of serum 25-OH vitamin D less than 20 ng/mL (1,2). The Endocrine Society went on to further define vitamin D insufficiency as a level between 21 and 29 ng/mL (2). 1. IOM ([place] of [employer]). 2010. Dietary reference intakes for calcium and D. [place]: The National Academies Press. 2. Sundar MF, [place], Kimberly GIBSON, et al. Evaluation, treatment, and prevention of vitamin D deficiency: an Endocrine Society clinical practice guideline. JCEM. 2010; 96(7):1911-30. Performed By: #### V ITADLC #### [facility] [address] [place] [address] Dr. Chana Ceballos CBC AUTO DIFFon 10-05-2021 BASO # 0.0 103/ul Normal 0.0-0.1 [facility] Comment on above: Performed By: #### C BC #### [facility] [address] [place] [address] Dr. Chana Ceballos Basophils/100 WBC (Bld) 0.3 % Normal 0.2-2.0 [facility] Comment on above: Performed By: #### C BC #### [facility] [address] [place] [address] Dr. Chana Ceballos EO # 0.2 103/ul Normal 0.0-0.7 [facility] Comment on above: Performed By: #### C BC #### [facility] [address] [place] [address] Dr. Chana Ceballos Eosinophils/100 WBC (Bld) 2.1 % Normal 0.9-7.0 [facility] Comment on above: Performed By: #### C BC #### [facility] [address] [place] [address] Dr. Chana Ceballos Erythrocyte distribution width (RBC) [Ratio] 12.3 % Normal 11.0-15.0 [facility] Comment on above: Performed By: #### C BC #### [facility] [address] [place] [address] Dr. Chana Ceballos Hematocrit (Bld) [Volume fraction] 41.7 % Normal 36.0-48.0 [facility] Comment on above: Performed By: #### C BC #### [facility] [address] [place] [address] Dr. Chana Ceballos Hemoglobin (Bld) [Mass/Vol] 13.6 g/dL Normal 12.0-16.0 [facility] Comment on above: Performed By: #### C BC #### [facility] [address] [place] [address] Dr. Chana Ceballos IG # 0.04 10e3/ul Critically high 0.00-0.03 [facility] Comment on above: Performed By: #### C BC #### [facility] [address] [place] [address] Dr. Chana Ceballos IG % 0.6 % Critically high 0.0-0.[address] [facility] Comment on above: Performed By: #### C BC #### [facility] [address] [place] [address] Dr. Chana Ceballos LYMPH # 1.4 103/ul Normal 1.2-3.8 [facility] Comment on above: Performed By: #### C BC #### [facility] [address] [place] [address] Dr. Chana Ceballos Lymphocytes/100 WBC (Bld) 19.8 % Critically low 20.5-60.0 [facility] Comment on above: Performed By: #### C BC #### [facility] [address] [place] [address] Dr. Chana Ceballos MANUAL DIFF REQ NO Normal [facility] Comment on above: Performed By: #### C BC #### [facility] [address] [place] [address] Dr. Chana Ceballos MCH (RBC) [Entitic mass] 30.3 pg Normal 26.7-34.0 [facility] Comment on above: Performed By: #### C BC #### [facility] [address] [place] [address] [address] Chana Ceballos MCHC (RBC) [Mass/Vol] 32.6 g/dL Normal 29.9-35.2 [facility] Comment on above: Performed By: #### C BC #### [facility] [address] [place] [address] Dr. Chana Ceballos MCV (RBC) [Entitic vol] 92.9 fL Normal 81.0-99.0 [facility] Comment on above: Performed By: #### C BC #### [facility] [address] [place] [address] Dr. Chana Ceballos MONO # 0.7 103/ul Normal 0.3-0.8 [facility] Comment on above: Performed By: #### C BC #### [facility] [address] [place] [address] Dr. Chana Ceballos Monocytes/100 WBC (Bld) 10.2 % Normal 1.7-12.0 [facility] Comment on above: Performed By: #### C BC #### [facility] [address] [place] [address] Dr. Chana Ceballos NEUT # 4.7 103/ul Normal 1.4-6.5 [facility] Comment on above: Performed By: #### C BC #### [facility] [address] [place] [address] Dr. Chana Ceballos Neutrophils/100 WBC (Bld) 67.0 % Normal 43.0-75.0 [facility] Comment on above: Performed By: #### C BC #### [facility] [address] [place] [address] Dr. Chana Ceballos Platelet mean volume (Bld) [Entitic vol] 11.0 fL Normal 9.5-13.5 [facility] Comment on above: Performed By: #### C BC #### [facility] [address] [place] [address] Dr. Chana Ceballos PLT 212 103/ul Normal 150-450 [facility] Comment on above: Performed By: #### C BC #### [facility] [address] [place] [address] [address] Chana Ceballos WBC 7.1 103/ul Normal 4.0-11.0 [facility] Comment on above: Performed By: #### C BC #### [facility] [address] [place] [address] [address] Chana Ceballos FREE T3on 10-05-2021 FREE T3 2.32 pg/mlL Normal 2.18-3.98 [facility] Comment on above: Performed By: #### T SH, CMP, LIPID, FT3 #### [facility] [address] [place] [address] [address] Chana Ceballos GLYCOHEMOGLOBIN A1Con 2021 ADA RECOMMENDATION SEE BELOW Normal [facility] Comment on above: Result Comment: ADA RECOMMENDED LIMIT 4.0 - 6.0 ADA THERAPEUTIC TARGET < 7.0 ACTION SUGGESTED > 7.0 Performed By: #### A 1C #### [facility] [address] [place] [address] Dr. Chana Ceballos Glucose [Mass/Vol] 169 mg/dL Normal [facility] Comment on above: Performed By: #### A 1C #### [facility] [address] [place] [address] [address] Chana Ceballos HbA1c (Bld) [Mass fraction] 7.5 % Critically high 4.5-6.2 [facility] Comment on above: Performed By: #### A 1C #### [facility] [address] [place] [address] [address] Chana Ceballos LIPID PROFILEon 10-05-2021 CHOL-HDL RATIO NORM SEE BELOW Normal [facility] Comment on above: Result Comment: 3.3 - 4.4 LOW RISK 4.4 - 7.1 AVERAGE RISK 7.1 - 11.0 MODERATE RISK >11.0 HIGH RISK Performed By: #### T SH, CMP, LIPID, FT3 #### [facility] [address] [place] [address] [address] Chana Ceballos Cholesterol [Mass/Vol] 217 mg/dL Critically high <=200 [facility] Comment on above: Performed By: #### T SH, CMP, LIPID, FT3 #### [facility] [address] [place] [address] [address] Chana Ceballos Cholesterol in HDL [Mass/Vol] 38 mg/dL Critically low 40-60 [facility] Comment on above: Performed By: #### T SH, CMP, LIPID, FT3 #### [facility] [address] [place] [address] [address] Chana Ceballos Cholesterol in LDL [Mass/Vol] 137.4 mg/dL Normal [facility] Comment on above: Performed By: #### T SH, CMP, LIPID, FT3 #### [facility] [address] [address] [address] Chana Ceballos Cholesterol.total/Ch olesterol in HDL [Mass ratio] 5.7 {ratio} Normal [facility] Comment on above: Performed By: #### T SH, CMP, LIPID, FT3 #### [facility] [address] [place] [address] [address] Chana Ceballos HDL NORMAL > or = 60 mg/dl - LOW CARDIOVASCULAR RISK <40 mg/dl - HIGH CARDIOVASCULAR RISK Normal [facility] Comment on above: Performed By: #### T SH, CMP, LIPID, FT3 #### [facility] [address] [place] [address] [address] Chana Ceballos LDL CALC NORMAL SEE BELOW Normal [facility] Comment on above: Result Comment: <100 mg/dl OPTIMAL 100 - 129 mg/dl NEAR OR ABOVE OPTIMAL 130 - 159 mg/dl BORDERLINE HIGH 160 - 189 mg/dl HIGH >190 mg/dl VERY HIGH Performed By: #### T SH, CMP, LIPID, FT3 #### [facility] [address] [place] [address] [address] Chana Ceblalos Triglyceride [Mass/Vol] 208 mg/dL Critically high <=150 [facility] Comment on above: Performed By: #### T SH, CMP, LIPID, FT3 #### [facility] [address] [place] [address] [address] Chana Ceballos VLDL CALC 41.6 mg/dL Normal [facility] Comment on above: Performed By: #### T SH, CMP, LIPID, FT3 #### [facility] [address] [address] [address] Chana Ceblalos PROF 14(COMP METB)on 022 Albumin [Mass/Vol] 4.2 g/dL Normal 3.4-5.0 [facility] Comment on above: Performed By: #### T SH, CMP, LIPID, FT3 #### [facility] [address] [address] [address] Chana Ceballos Albumin/Globulin [Mass ratio] 1.2 {ratio} Normal [facility] Comment on above: Performed By: #### T SH, CMP, LIPID, FT3 #### [facility] [address] [place] [address] Dr. Chana Ceballos ALP [Catalytic activity/Vol] 61 U/L Normal 46-116 [facility] Comment on above: Performed By: #### T SH, CMP, LIPID, FT3 #### [facility] [address] [place] [address] Dr. Chana Ceballos ALT [Catalytic activity/Vol] 29 U/L Normal 14-59 [facility] Comment on above: Performed By: #### T SH, CMP, LIPID, FT3 #### [facility] [address] [place] [address] Dr. Chana Ceballos Anion gap [Moles/Vol] 14.3 mmol/L Normal [facility] Comment on above: Performed By: #### T SH, CMP, LIPID, FT3 #### [facility] [address] [place] [address] Dr. Chana Ceballos AST [Catalytic activity/Vol] 17 U/L Normal 15-37 [facility] Comment on above: Performed By: #### T SH, CMP, LIPID, FT3 #### [facility] [address] [place] [address] Dr. Chana Ceballos Bilirubin [Mass/Vol] 0.2 mg/dL Normal 0.2-1.0 [facility] Comment on above: Performed By: #### T SH, CMP, LIPID, FT3 #### [facility] [address] [address] [address] Chana Ceballos Calcium [Mass/Vol] 9.0 mg/dL Normal 8.5-10.1 [facility] Comment on above: Performed By: #### T SH, CMP, LIPID, FT3 #### [facility] [address] [address] [address] Chana Ceballos Chloride [Moles/Vol] 103 mmol/L Normal 98-107 [facility] Comment on above: Performed By: #### T SH, CMP, LIPID, FT3 #### [facility] [address] [address] [address] Chana Ceballos CO2 [Moles/Vol] 25.1 mmol/L Normal 21.0-32.0 [facility] Comment on above: Performed By: #### T SH, CMP, LIPID, FT3 #### [facility] [address] [place] [address] Dr. Chana Ceballos Creatinine [Mass/Vol] 0.93 mg/dL Normal 0.55-1.02 [facility] Comment on above: Performed By: #### T SH, CMP, LIPID, FT3 #### [facility] [address] [place] [address] Dr. Chana Ceballos EGFR-AF ENGLISH >60 Normal >=60 [facility] Comment on above: Performed By: #### T SH, CMP, LIPID, FT3 #### [facility] [address] [place] [address] Dr. Chana Ceballos EGFR-NON AF ENGLISH >60 Normal >=60 [facility] Comment on above: Performed By: #### T SH, CMP, LIPID, FT3 #### [facility] [address] [address] [address] Chana Ceballos Globulin (S) [Mass/Vol] 3.4 g/dL Normal [facility] Comment on above: Performed By: #### T SH, CMP, LIPID, FT3 #### [facility] [address] [address] [address] Chana Ceballos Glucose [Mass/Vol] 198 mg/dL Critically high 74-106 [facility] Comment on above: Performed By: #### T SH, CMP, LIPID, FT3 #### [facility] [address] [place] [address] Dr. Chana Ceballos Potassium [Moles/Vol] 4.4 mmol/L Normal 3.5-5.1 [facility] Comment on above: Performed By: #### T SH, CMP, LIPID, FT3 #### [facility] [address] [place] [address] Dr. Chana Ceballos Protein [Mass/Vol] 7.6 g/dL Normal 6.4-8.2 [facility] Comment on above: Performed By: #### T SH, CMP, LIPID, FT3 #### [facility] [address] [place] [address] Dr. Chana Ceballos Sodium [Moles/Vol] 138 mmol/L Normal 136-145 [facility] Comment on above: Performed By: #### T SH, CMP, LIPID, FT3 #### [facility] [address] [place] [address] Dr. Chana Ceballos Urea nitrogen [Mass/Vol] 18.0 mg/dL Normal 7.0-18.0 [facility] Comment on above: Performed By: #### T SH, CMP, LIPID, FT3 #### [facility] [address] [place] [address] Dr. Chana Ceballos Urea nitrogen/Creatinine [Mass ratio] 19.4 mg/mg Normal [facility] Comment on above: Performed By: #### T SH, CMP, LIPID, FT3 #### [facility] [address] [place] [address] Dr. Chana Ceballos TSHon 10-05-2021 TSH 2.219 uIU/mL Normal 0.358-3.740 [facility] Comment on above: Performed By: #### T SH, CMP, LIPID, FT3 #### [facility] [address] [place] [address] Dr. Chana Ceballos Vital Signs Date Time Vital Sign Value Performing Clinician Facility 07-12-2023 11:25-0400 Diastolic blood pressure 88 mm[Hg] MD Jaja Parry Work Phone: [facility] 07-12-2023 11:25-0400 Heart rate 82 /min MD Jaja Parry Work Phone: [facility] 07-12-2023 11:25-0400 Respiratory rate 16 /min MD Jaja Parry Work Phone: [facility] 07-12-2023 11:25-0400 SaO2% (BldA) [Mass fraction] 99 % MD Jaja Parry Work Phone: [facility] 07-12-2023 11:25-0400 Systolic blood pressure 138 mm[Hg] MD Jaja Parry Work Phone: [facility] 07-12-2023 10:51-0400 Inhaled oxygen flow rate 3 L/min MD Jaja Parry Work Phone: [facility] 07-12-2023 09:56-0400 Body height 167.64 cm MD Jaja Parry Work Phone: [facility] 07-12-2023 09:56-0400 Body weight 108.86 kg MD Jaja Parry Work Phone: [facility] 06-17-2023 08:47-0400 Body height 167.64 cm [facility] 06-17-2023 08:47-0400 Body mass index (BMI) [Ratio] 38.4 kg/m2 [facility] 06-17-2023 08:47-0400 Body weight 108 kg [facility] 05-09-2023 08:58-0400 Body height 167.64 cm [facility] 05-09-2023 08:58-0400 Body mass index (BMI) [Ratio] 38.7 kg/m2 [facility] 05-09-2023 08:58-0400 Body weight 108.94 kg [facility] 07-28-2022 08:15-0400 Body height 167.64 cm Hudson Gu Other [facility] Other 07-28-2022 08:15-0400 Body mass index (BMI) [Ratio] 38.73 kg/m2 Hudson Gu Other [facility] Other 07-28-2022 08:15-0400 Body weight 108.86 kg Hudson Gu Other [facility] Other 12-12-2021 13:05-0400 Body height 167.64 cm Liliya Fletcher Other [facility] Other 12-12-2021 13:05-0400 Body mass index (BMI) [Ratio] 35.51 kg/m2 Liliya Jean Baptistemond Other [facility] Other 12-12-2021 13:05-0400 Body temperature 97.9 [degF] Liliya Jean Baptistemond Other [facility] Other 12-12-2021 13:05-0400 Body weight 99.79 kg Liliya Jean Baptistemond Other [facility] Other 12-12-2021 13:05-0400 Diastolic blood pressure 74 mm[Hg] Liliya Jean Baptistemond Other [facility] Other 12-12-2021 13:05-0400 Respiratory rate 18 /min Liliya Jean Baptistemond Other [facility] Other 12-12-2021 13:05-0400 SaO2% (BldA) [Mass fraction] 99 % Liliya Justine Other [facility] Other 12-12-2021 13:05-0400 Systolic blood pressure 138 mm[Hg] Liliya Justine Other [facility] Other 2021 12:30-0400 Body height 167.64 cm Dorys Flannery Other [facility] Other 2021 12:30-0400 Body mass index (BMI) [Ratio] 36.31 kg/m2 Dorys Flannery Other [facility] Other 2021 12:30-0400 Body temperature 97 [degF] Dorys Flannery Other [facility] Other 2021 12:30-0400 Body weight 102.06 kg Dorys Flannery Other [facility] Other Encounters Encounter Date Encounter Type Care Provider Facility Start: 10-13-2023 End: 10-13-2023 ambulatory MD Jaja Parry Work Phone: [facility] Work Phone: Start: 10-13-2023 End: 10-13-2023 Patient encounter procedure MD Jaja Parry Work Phone: [facility] Work Phone: Start: 08-01-2023 End: 08-01-2023 ambulatory MD Jaja Parry Work Phone: [facility] Work Phone: Start: 08-01-2023 End: 08-01-2023 Patient encounter procedure MD Jaja Parry Work Phone: [facility] Work Phone: Start: 07-12-2023 Non-patient / Non-visit MD Linnea Parry Work Phone: [facility] Work Phone: Start: 07-12-2023 End: 07-12-2023 Admission to same day surgery center MD Jaja Parry Work Phone: [facility] Work Phone: Start: 07-12-2023 End: 07-12-2023 ambulatory Jaja Parry Facility:[facility] Start: 06-30-2023 End: 06-30-2023 Patient encounter procedure MD Jaja Parry Work Phone: [facility] Work Phone: Start: 06-17-2023 End: 06-17-2023 ambulatory [facility] Work Phone: Start: 06-17-2023 End: 06-17-2023 Patient encounter procedure [facility] Work Phone: Start: 05-09-2023 End: 05-09-2023 ambulatory [facility] Work Phone: Start: 05-09-2023 End: 05-09-2023 Patient encounter procedure [facility] Work Phone: Start: 02-02-2023 End: 02-02-2023 ambulatory VALORIE JOSEPHO Not Available Start: 07-28-2022 End: 07-28-2022 ambulatory Hudson Gu Other [facility] Other Start: 07-28-2022 Office outpatient vi sit 25 minutes Hudson ENGLE [facility] Start: 06-23-2022 End: 06-24-[address] JAJA PARRY . Facility:[facility] Start: 06-14-2022 End: 06-14-2022 ambulatory Hudson Gu Other [facility] Other Start: 06-14-2022 Telephone encounter Hudson BEVERLY G [facility] Start: 03-09-2022 End: 04-08-2022 ambulatory HUDSON GU Facility:[facility] Start: 02-22-2022 End: 02-23-2022 ambulatory LILIYA HUTTON Facility:[facility] Start: 12-12-2021 Office outpatient vi sit 15 minutes Liliya Fletcher [facility] Start: 12-12-2021 End: 12-12-2021 ambulatory MD Jaja Parry Work Phone: [facility] Other Start: 12-12-2021 End: 12-12-2021 Patient encounter procedure MD Jaja Parry Work Phone: [facility] Start: 2021 End: 2021 ambulatory Dorys Flannery Other [employer] [facility] [email or web address] Other Start: 2021 Office outpatient ne w 20 minutes Dorys Flannery [facility] Start: 10-07-2021 Encounter for genera l adult medical examination without abnormal findings DR JAJA PARRY . [facility] Start: 10-05-2021 End: 10-06-[address] JAJA PARRY . Facility: Start: 10-05-2021 End: 10-06-2021 Encounter for general adult medical examination without abnormal findings DR JAJA PARRY . Facility: Procedures Date Procedure Procedure Detail Performing Clinician Start: 10-13-2023 X-ray of left knee MD Dolores Parry Work Phone: Start: 07-12-2023 Radiofrequency destr uction of peripheral nerve MD Jaja Parry Work Phone: Start: 12-12-2021 Radiologic examinati on of knee MD Jaja Parry Work Phone: Plan of Treatment Date Care Activity Detail Author Start: 10-13-2023 X-ray of left knee XR knee LT 2V Fir [facility] Start: 10-13-2023 XR Knee - left 2 Views [facility] Start: 07-12-2023 [facility] Patient Education Know your Meds Felter Non Diagnostic Block [facility] Work Phone: Patient referral [facility] Work Phone: Payers Date Payer Category Payer Self-pay 2012 Unknown [id number] 1965 Unknown [id number] [id number] 1965 Unknown [id number] 2.16.84 [id number] 1965 Unknown [id number] 2.16.84 [id number] 1965 Unknown [id number] 2.16.84 [id number] 1965 Unknown [id number] 1961 Blue Cross Blue Shield [id number] Unknown [employer] [id number] Unknown [id number] [id number] Social History Date Type Detail Facility Sex Assigned At [facility] Other Start: 1965 Sex Assigned At Female F [facility] Goals Date Patient Goal Desired Activity /State Clinical Notes 2021 to 07-12-2023 Note Date & Type Note Facility 07-12-2023 Procedure note [facility] 05-09-2023 Evaluation note Authored May 09, 2023 9:1 6am We performed a 4/1cc Marcain e / Kenalog cortisone injection into the knee joint under sterile technique. Patient tolerated the injection well without adverse reaction. Patient can follow up as needed. Note scribed by ESEQUIEL Valle, reviewed and amended by myself Hudson Gu D.O. [facility] Work Phone: 1(200) 140-935606-14-2023 Evaluation note* Encounter Date Diagnosis Assessment Notes Treatment Notes Treatment Clinical Notes Jul, Primary osteoarthritis of left knee (ICD-10 - M17.12) Jul, Acute meniscal tear of left knee, initial encounter (ICD-10 - S83.207A) Jul, Acute pain of left knee (ICD-10 - M25.562) Jul, Contusion of left knee, initial encounter (ICD-10 - S80.02XA) Susanne presents with left knee contusion and anterior knee pain. At this juncture we have discussed the findings and diagnosis as well as personally reviewed appropriate imaging and performed interpretation of related testing and examination with the patient in office today. We extensively reviewed her MRI and I do not think the structural issues seen on MRI are causing any problems. She has tenderness over her anterior knee where she had initial contusion a few months ago. She has extreme sensitivity here which continues. This is not improved. We did discuss genicular blocks prior but she had good relief with the intra-articular cortisone injection. She would like to repeat this. Today under sterile technique patient's left knee was injected via the inferolateral portal with 4 cc Marcaine 1 cc of Kenalog. She tolerated this well. Follow-up as needed The patient has been involved in our cooperative treatment plan and agrees to move forward with treatment at this time. Susanne returns with a complaint of left knee pain. She previously had treatment with cortisone injection and reported 4 months of relief. She elects to continue to treat with cortisone injection today. We performed a 1/1cc marcaine / kenalog cortisone injection into the knee joint under sterile technique. Patient tolerated the injection well without adverse reaction. [facility] Other 05-01-2023 Evaluation note* Encounter Date Diagnosis Assessment Notes Treatment Notes Treatment Clinical Notes June, Acute meniscal tear of left knee, initial encounter (ICD-10 - S83.207A) [facility] Other 10-29-2022 Evaluation note* Encounter Date Diagnosis Assessment Notes Treatment Notes Treatment Clinical Notes Nov, Acute pain of left knee (ICD-10 - M25.562) Nov, Contusion of left knee, initial encounter (ICD-10 - S80.02XA) Wear the Ross wrap for comfort and compression. Take ibuprofen, 600 mg 3-4 times a day with food as needed for pain and swelling. Ice and elevate your knee 2-3 times a day. Try to take frequent breaks at work to rest your knee. Follow-up with your family physician if no improvement by Tuesday or . Nov, Other Contusion mater ial was printed [facility] Other 08-28-2022 Evaluation note* Encounter Date Diagnosis Assessment Notes Treatment Notes Treatment Clinical Notes Sep, Contact with and (suspected) exposure to other viral communicable diseases (ICD-10 - Z20.828) Sep, COVID-19 (ICD-10 - U07.1) Today you tested positive for the COVID virus. This mean you need to follow all CDC quarantine guidelines found at [email or web address]. It is important to rest, increase fluids, and stay at home. Recommend contacting primary care provider and discussing best course of action if you have chronic health conditions. COVID POSITIVE education handout discharge instructions. given. [facility] Other Evaluation noteNo assessment information available [facility] Work Phone: Evaluation note* Author Mare Ramirez [facility] Authored May 09, 2023 9:1 6am We performed a 4/1cc Marcain e / Kenalog cortisone injection into the knee joint under sterile technique. Patient tolerated the injection well without adverse reaction. Patient can follow up as needed. Note scribed by ESEQUIEL Valle, reviewed and amended by myself Hudson Gu D.O. [facility] Work Phone: Evaluation note* Diagnosis Onset Date Resolution Status Chronic pain acute Knee pain acute Osteoarthritis of left knee acute Chronic pain acute Contusion of left knee acute Knee pain acute Osteoarthritis of left knee acute [facility] Work Phone: History general Narrative - Reported* Type Description Date Medical History diabetes Surgical History c-sections - 2 Surgical History oophorectomy Surgical History hysterectomy [facility] Other History general Narrative - Reported* Type Description Date Medical History diabetes Medical History high cholesterol Surgical History c-sections - 2 Surgical History oophorectomy Surgical History hysterectomy [facility] Other Chief Complaint and Reason for Visit Chief Complaint M25.562 Chief Complaint OP SP LT KNEE PAIN R EQUESTING Reason for Visit Acute meniscal tear of left knee Contusion of left knee Osteoarthritis of left knee Chief Complaint OP SP LT KNEE PAIN R EQUESTING OP SP LT KNEE PAIN, DID NOT IMPROVE Reason for Visit Acute meniscal tear of left knee Contusion of left knee Osteoarthritis of left knee Acute meniscal tear of left knee Contusion of left knee Osteoarthritis of left knee Chief Complaint OP SP LT KNEE PAIN R EQUESTING OP SP LT KNEE PAIN, DID NOT IMPROVE NEW CONSULT DR GU LT KNEE PAIN Knee Pain Knee Pain F/U AFTER LEFT GENICULAR BLOCK Reason for Visit Acute meniscal tear of left knee Contusion of left knee Osteoarthritis of left knee Contusion of left knee Knee pain Chronic pain Knee pain Osteoarthritis of left knee Chronic pain Knee pain Osteoarthritis of left knee Chief Complaint OP SP LT KNEE PAIN R EQUESTING OP SP LT KNEE PAIN, DID NOT IMPROVE NEW CONSULT DR GU LT KNEE PAIN Knee Pain Knee Pain Reason for Visit Acute meniscal tear of left knee Contusion of left knee Osteoarthritis of left knee Contusion of left knee Knee pain Chronic pain Knee pain Osteoarthritis of left knee Chief Complaint F/U AFTER LEFT GENIC ULAR BLOCK LT KNEE PAIN M25.569 - Pain in unspecified knee Reason for Visit Chronic pain Knee pain Osteoarthritis of left knee Chronic pain Contusion of left knee Knee pain Osteoarthritis of left knee Advance Directives Advance Directive Response Recorded Date/ Time Advance Directives No December 12, 2021 1:39pm Summary Purpose Family History Relationship Condition Age at Onset Recorded Date/T maddie father Heart disease Unknown Unknown Diabetes mellitus Unknown Hypertension Unknown Not Specified Malignant neoplasm Unknown History of stroke Unknown Relationship Condition Age at Onset Recorded Date/T maddie father Heart disease Unknown Unknown Diabetes mellitus Unknown Hypertension Unknown mother Malignant neoplasm Unknown History of stroke Unknown Additional Source Comments REASON FOR VISIT (unrecogniz ed section and content) SILVER SANTINO, SORE THROAT, SINUS CONGESTION, FEVERLEFT KNEE PAINNo InformationRecheck Left Knee Care Teams (unrecognized sec tion and content) Team Status: Inactive Member Role Status Dates Jaja Parry MD Primary Care Provider Active HAKEEM Hogue Attending Provider Active Team Status: Active Member Role Status Dates Jaja Parry MD Primary Care Provider Active Team Status: Inactive Member Role Status Natacha Parry MD Primary Care Provider Active Start: May 09, 2023 End: May 09, 2023 Hudson Gu DO Attending Provider Active S tart: May 09, 2023 End: May 09, 2023 Team Status: Inactive Member Role Status Natacha Parry MD Primary Care Provider Active Start: June 17, 2023 End: June 17, 2023 Hudson Gu DO Attending Provider Active S tart: June 17, 2023 End: June 17, 2023 Team Status: Inactive Member Role Status Natacha Parry MD Primary Care Provider Active Start: June 30, 2023 End: June 30, 2023 Gregg Nassar MD Attending Provider Active Sta rt: June 30, 2023 End: June 30, 2023 Team Status: Inactive Member Role Status Natacha Parry MD Primary Care Provider Active Start: July 12, 2023 End: July 12, 2023 Gregg Nassar MD Attending Provider Active Sta rt: July 12, 2023 End: July 12, 2023 Team Status: Active Member Role Status Natacha Parry MD Primary Care Provider Active Start: July 12, 2023 Gregg Nassar MD Attending Provider, Other Provider Active Start: July 12, 2023 Team Status: Inactive Member Role Status Natacha Parry MD Primary Care Provider Active Start: August 01, 2023 End: August 01, 2023 Gregg Nassar MD Attending Provider Active Sta rt: August 01, 2023 End: August 01, 2023 Team Status: Inactive Member Role Status Natacha Parry MD Primary Care Provider Active Start: October 13, 2023 End: October 13, 2023 Gregg Nassar MD Attending Provider Active Sta rt: October 13, 2023 End: October 13, 2023 Team Status: Active Member Role Status Natacha Parry MD Primary Care Provider Active Start: October 13, 2023 Gregg Nassar MD Attending Provider Active Sta rt: October 13, 2023 Goals (unrecognized section and content) Goals may be documented in a n alternate section INFORMATION SOURCE (unrecogn ized section and content) DATE CREATED AUTHOR 06/27/2022 [facility] DATE CREATED AUTHOR AUTHOR'S ORGANIZ ATION 02/03/2023 [facility] DATE CREATED AUTHOR AUTHOR'S ORGANIZ ATION 07/22/2023 [facility] FOR RECORDS PERTAINING TO PATIENTS WHO ARE OR HAVE BEEN ENROLLED IN A CHEMICAL DEPENDENCY/SUBSTANCEABUSE PROGRAM, SOME INFORMATION MAY BE OMITTED. This clinical summary was aggregated from multiple sources. Caution should be exercised in using it in the provision of clinical care. This summary normalizes information from multiple sources, and as a consequence, information in this document may materially change the coding, format and clinical context of patient data. In addition, data may be omitted in some cases. CLINICAL DECISIONS SHOULD BE BASED ON THE PRIMARY CLINICAL RECORDS. [facility] [employer] provides no warranty or guarantee of the accuracy or completeness of information in this document.
--- NOTE | 2023-10-21 16:53 | US_ITS ---
The [address] [address] Patient Name: RJ PINZON MRN: [id number] date: 1965 Sex: F Assigned Patient Location: US Current Patient Location: US Accession/Order Number: [id number] Exam Date: 10/21/2023 17:15 Report Date: 10/21/2023 19:42 At the request of: JAJA DILL Procedure: US venous doppler LE RT EXAM: US venous doppler LE RT HISTORY: Localized Edema, R50.0 COMPARISON: None. TECHNIQUE: Multiple sonographic images of the deep veins of the right lower extremity were obtained, supplemented with Doppler. FINDINGS: The deep veins of the right lower extremity are fairly well-visualized the groin to the mid calf. No filling defect is identified to indicate a thrombus. There is normal compression augmentation to flow throughout. US/US venous doppler LE RT IMPRESSION: There is no direct or indirect evidence of deep vein thrombosis in the right lower extremity at this time. Electronically authenticated by: NAMITA IBARRA Date: 10/21/2023 19:42
== END 2023-10-21 16:20 | disposition home or self-care (01) ==
LOC: US 16:20
PROVIDERS: PCP Family Medicine; Visit Provider Family Medicine
DX: R60.0 Localized edema (principal)
CPT/HCPCS: 93971

== ENCOUNTER 2023-11-29 07:40 | Outpatient (OUT) | payer BC, SELFPAY ==
--- OUTSIDE RECORDS SUMMARY | 2023-11-29 07:48 | XMS_ITS | CCD ---
Author Organization [facility] Care Team Providers Care Sheather Name Role Phone Dorys Flannery Unavailable Liliya Fletcher Unavailable MD Jaja Parry Primary Care Provider [phone] HAKEEM Fletcher Attending Provider [phone] Hudson Gu Unavailable FUENTES ., DR WILKINSON Admitting Unavailable HOY ., DR WILKINSON Attending Unavailable HOY ., DR WILKINSON Primary Care Unavailable HOY ., DR WILKINSON Consulting Unavailable HOY ., DR WILKINSON Admitting Unavailable HOY ., DR WILKINSON Attending Unavailable HOY ., DR WILKINSON Primary Care Unavailable HOY ., DR WILIKNSON Consulting Unavailable LILIYA HUTTON Admitting Unavailable LILIYA HUTTON Attending Unavailable FUENTES ., DR WILKINSON Primary Care Unavailable HEMANT, DR NOHEMY Johnson Consulting Unavailable LILIYA HUTTON Consulting Unavailable HUDSON GU Admitting Unavailable HUDSON GU Attending Unavailable FUENTES ., DR WILKINSON Primary Care Unavailable VALORIE PEREZ Attending Unavailable MD Jaja Parry Primary Care Provider [phone] MD Gregg Nassar Attending Provider [phone] MD Jaja Parry Primary Care Provider [phone] MD Gregg Nassar Attending Provider Gregg Nassar Attending Unavailable Jaja Parry Primary Care Unavailable Gregg Nassar Admitting Unavailable Jaja Parry Primary Care Unavailable Gregg Nassar Admitting Unavailable Gregg Nassar Attending Unavailable Allergies Allergy Classification Reported Allergen(s) Allergy Type Date of Onset Reaction(s) Facility Angiotensin Converting Enzyme (ROSS) Inhibitors (1 source) Lisinopril Drug Allergy [address] [place] [address] Cephalosporins (antibiotic) (1 source) Cephalexin Drug Allergy 4 Unknown Reaction [facility] (5 sources) Cephalexin; Translations: [Keflex] Drug Allergy 4 Unknown [facility] (1 source) Corticosteroids Drug allergy (disorder) 4 [facility] (1 source) DULoxetine Drug Allergy 4 [facility] (4 sources) Cephalexin; Translations: [cephalexin] Drug Allergy 4 Unknown Reaction [facility] (4 sources) Lisinopril; Translations: [lisinopril] Drug Allergy 4 Rash [facility] Medications Current Medications Medication Drug Class(es) Dates [...] 50 MG PO EVERY 4-6 HOURS 42 May 12, 2023 12:00am July 12, 2023 9:53am dispense #42 (forty two) DX: S83.207A Vit C-S.Iapazs-Ytkufb-Ljbfp Sd (Tart Thapa) [id number] mg capsule (4 sources) Start: 07-12-2023 Vit C-S.Thapa -Celery-Grape Sd (Tart Thapa) 19-261-89-75-20 mg capsule Active CAP PO July 12, [...] Onset: 03-09-2022 Chronic Other nervous system disorders (4 sources) Chronic pain; Translations: [Other chronic pain] 06-30-2023 Chronic Other nervous system disorders (8 sources) Other chronic pain; Translations: [Other chronic pain] Onset: 07-12-2023 06-30-2023 Chronic Other non-traumatic joint disorders (8 sources) Pain in left knee; Translations: [PAIN [...] Test Name Value Interpretation Reference Range Facility XR knee LT 2Von 10-13-2023 XR knee LT 2V [facility] [address] [place] [address] XRay Report Signed Patient: Susanne Clark MR#: [id number] : 1965 Acct:[id number] Age/Sex: 58 / F ADM Date: 10/13/23 Loc: [facility] Room: Type: [facility] Attending Dr: Gregg Nassar MD Copies to: Gregg Nassar MD Ordering Provider: Gregg Nassar MD Date of Service: 10/13/23 XR/XR knee LT 2V: M25.569 - Pain in unspecified knee LEFT KNEE - 2 views CLINICAL HISTORY: Left knee pain status post injury. COMPARISON: None FINDINGS: No joint effusion. Minimal degenerative change without acute bony process. XR/XR knee LT 2V IMPRESSION: MINIMAL DEGENERATIVE CHANGE WITHOUT ACUTE BONY PROCESS. Impression dictated by: Freedom Foster Jr., D.O.10/13/2023 12:32 PM Dictation Location: [place] [address] Transcribed By: [facility] 10/13/23 1232 Dictated By: Freedom Foster Jr, DO 10/13/23 1231 Signed By: 10/13/23 1232 Normal [facility] MRI KNEE LT WO CONon 023 MRI [...] by: NOHEMY MARCOS Date: 2022-02-22 08:51 Normal [facility] XR knee LT 4V*on 12-12-2021 XR knee LT 4V* [facility] [employer] Other XR knee LT 4V* [facility] [employer] Other XR knee LT 4V* [address] [place] [address] [employer] Other XR knee LT 4V* [place] [address] No rt [employer] Other XR knee LT 4V* XRay Report [employer] Other XR knee LT 4V* Signed [employer] Other XR knee LT 4V* Patient: Susanne Clark MR#: [id number] [employer] Other XR knee LT 4V* [id number] [employer] Other XR knee LT 4V* : 1965 Acct:[id number] [employer] Other XR knee LT 4V* Age/Sex: 56 / F ADM Date: 12/12/21 [facility] Other XR knee LT 4V* Loc: [facility] Room: Type: [facility] [employer] Other XR knee LT 4V* Attending Dr: Liliya PALACIO [employer] Other XR knee LT 4V* Copies to: HAKEEM Lim [employer] Other XR knee LT 4V* Ordering Provider: HAKEEM Lim [employer] Other XR knee LT 4V* Date of Service: 12/12/21 [employer] Other XR knee LT 4V* XR/XR knee LT 4V*: Acute pain of left knee [employer] Other XR knee LT 4V* XR knee LT 4V* 12/12/2021 12:41 PM [employer] Other XR knee LT 4V* SIGNS AND SYMPTOMS: Left knee pain after fall [employer] Other XR knee LT 4V* PROTOCOL: Frontal, lateral, and oblique radiographs of the left knee [employer] Other XR knee LT 4V* COMPARISON: None Nort [employer] Other XR knee LT 4V* FINDINGS: [employer] Other XR knee LT 4V* There is mild narrowing of the patellofemoral joint space with minimal narrowing of the medial [employer] Other XR knee LT 4V* weightbearing joint space. There is no evidence of fracture. No dislocation or subluxation. No [employer] Other XR knee LT 4V* joint effusion. No significant soft tissue swelling. [employer] Other XR knee LT 4V* XR/XR knee LT 4V* [employer] Other XR knee LT 4V* IMPRESSION: [employer] Other XR knee LT 4V* No acute bony injury. [employer] Other XR knee LT 4V* Mild degenerative changes are noted, as above. [employer] Other XR knee LT 4V* Impression dictated by: Bernardo Camacho M.D.12/12/2021 12:59 PM [employer] Other XR knee LT 4V* Dictation Location: [place] [address] [employer] Other XR knee LT 4V* Transcribed By: PWS 12/12/21 1259 [employer] Other XR knee LT 4V* Dictated By: Bernardo Camacho II, MD 12/12/21 1258 [employer] Other XR knee LT 4V* Signed By: [employer] Other XR knee LT 4V* 12/12/21 1253 [employer] Other SARS-CoV-2 (COVID-19) RNA NA A+probe Ql (Resp)on 2021 SARS-CoV-2 (COVID-19) RNA ALYSSA+probe Ql (Unsp spec) Positive [facility] Other T4 [facility] 10-06-2021 T4 [Mass/Vol] 7.2 ug/dL Normal 4.5-12.0 [facility] Comment on above: Performed By: #### T 4LC #### [facility] [address] [address] [address] Chana Ceballos VIT D 25-[place] [facility] 2021 Vitamin D, 25-Hydroxy 33.8 ng/mL Normal 30.0-100.0 [facility] Comment on above: Result Comment: Divya min D deficiency has been defined by the [place] of Medicine and an Endocrine Society practice guideline as a level of serum 25-OH vitamin D less than 20 ng/mL (1,2). The Endocrine Society went on to further define vitamin D insufficiency as a level between 21 and 29 ng/mL (2). 1. IOM ([place] of Medicine). 2010. Dietary reference intakes for calcium and D. [place]: The National Academies Press. 2. Sundar MF, Dinorah RIVERA, Kimberly GIBSON et al. Evaluation, treatment, and prevention of vitamin D deficiency: an Endocrine Society clinical practice guideline. JCEM. 2010; 96(7):1911-30. Performed By: #### V ITADLC #### [facility] [address] [place] [address] Dr. Chana Ceballos CBC AUTO DIFFon 10-05-2021 BASO # 0.0 103/ul Normal 0.0-0.1 [facility] Comment on above: Performed By: #### C BC #### [facility] [address] [place] [address] Dr. Chana Ceballos Basophils/100 WBC (Bld) 0.3 % Normal 0.2-2.0 [facility] Comment on above: Performed By: #### C BC #### [facility] [address] [place] [address] Dr. Chana Ceballos EO # 0.2 103/ul Normal 0.0-0.7 [facility] Comment on above: Performed By: #### C BC #### [facility] [address] [place] [address] Dr. Chana Ceballos Eosinophils/100 WBC (Bld) 2.1 % Normal 0.9-7.0 [facility] Comment on above: Performed By: #### C BC #### [facility] [address] [place] [address] Dr. Chana Ceballos Erythrocyte distribution width (RBC) [Ratio] 12.3 % Normal 11.0-15.0 [facility] Comment on above: Performed By: #### C BC #### [facility] [address] [place] [address] Dr. Chana Ceballos Hematocrit (Bld) [Volume fraction] 41.7 % Normal 36.0-48.0 [facility] Comment on above: Performed By: #### C BC #### [facility] [address] [place] [address] Dr. Chana Ceballos Hemoglobin (Bld) [Mass/Vol] 13.6 g/dL Normal 12.0-16.0 [facility] Comment on above: Performed By: #### C BC #### [facility] [address] [place] [address] [address] Chana Ceballos IG # 0.04 10e3/ul Critically high 0.00-0.03 [facility] Comment on above: Performed By: #### C BC #### [facility] [address] [place] [address] [address] Chana Ceballos IG % 0.6 % Critically high 0.0-0.5 [facility] Comment on above: Performed By: #### C BC #### [facility] [address] [place] [address] Dr. Chana Ceballos LYMPH # 1.4 103/ul Normal 1.2-3.8 [facility] Comment on above: Performed By: #### C BC #### [facility] [address] [place] [address] Dr. Chana Ceballos Lymphocytes/100 WBC (Bld) 19.8 % Critically low 20.5-60.0 [facility] Comment on above: Performed By: #### C BC #### [facility] [address] [place] [address] Dr. Chana Ceblalos MANUAL DIFF REQ NO Normal [facility] Comment on above: Performed By: #### C BC #### [facility] [address] [place] [address] Dr. Chana Ceballos MCH (RBC) [Entitic mass] 30.3 pg Normal 26.7-34.0 [facility] Comment on above: Performed By: #### C BC #### [facility] [address] [place] [address] Dr. Chana Ceballos MCHC (RBC) [Mass/Vol] 32.6 g/dL Normal 29.9-35.2 [facility] Comment on above: Performed By: #### C BC #### [facility] [address] [place] [address] Dr. Chana Ceballos MCV (RBC) [Entitic vol] 92.9 fL Normal 81.0-99.0 [facility] Comment on above: Performed By: #### C BC #### [facility] [address] [place] [address] Dr. Chana Ceballos MONO # 0.7 103/ul Normal 0.3-0.8 [facility] Comment on above: Performed By: #### C BC #### [facility] [address] [place] [address] Dr. Chana Ceballos Monocytes/100 WBC (Bld) 10.2 % Normal 1.7-12.0 [facility] Comment on above: Performed By: #### C BC #### [facility] [address] [place] [address] Dr. Chana Ceballos NEUT # 4.7 103/ul Normal 1.4-6.5 [facility] Comment on above: Performed By: #### C BC #### [facility] [address] [place] [address] Dr. Chana Ceballos Neutrophils/100 WBC (Bld) 67.0 % Normal 43.0-75.0 [facility] Comment on above: Performed By: #### C BC #### [facility] [address] [place] [address] Dr. Chana Ceballos Platelet mean volume (Bld) [Entitic vol] 11.0 fL Normal 9.5-13.5 [facility] Comment on above: Performed By: #### C BC #### [facility] [address] [place] [address] Dr. Chana Ceballos PLT 212 103/ul Normal 150-450 [facility] Comment on above: Performed By: #### C BC #### [facility] [address] [place] [address] Dr. Chana Ceballos WBC 7.1 103/ul Normal 4.0-11.0 [facility] Comment on above: Performed By: #### C BC #### [facility] [address] [place] [address] Dr. Chana Ceballos FREE T3on 10-05-2021 FREE T3 2.32 pg/mlL Normal 2.18-3.98 [facility] Comment on above: Performed By: #### T SH, CMP, LIPID, FT3 #### [facility] [address] [place], [place] [id number] Dr. Chana Ceballos GLYCOHEMOGLOBIN A1Con 2021 ADA RECOMMENDATION SEE BELOW Normal [facility] Comment on above: Result Comment: ADA RECOMMENDED LIMIT 4.0 - 6.0 ADA THERAPEUTIC TARGET < 7.0 ACTION SUGGESTED > 7.0 Performed By: #### A 1C #### [facility] [address] [place] [address] Dr. Chana Ceballos Glucose [Mass/Vol] 169 mg/dL Normal [facility] Comment on above: Performed By: #### A 1C #### [facility] [address] [place] [address] Dr. Chana Ceballos HbA1c (Bld) [Mass fraction] 7.5 % Critically high 4.5-6.2 [facility] Comment on above: Performed By: #### A 1C #### [facility] [address] [place] [address] Dr. Chana Ceballos LIPID PROFILEon 10-05-2021 CHOL-HDL RATIO NORM SEE BELOW Normal [facility] Comment on above: Result Comment: 3.3 - 4.4 LOW RISK 4.4 - 7.1 AVERAGE RISK 7.1 - 11.0 MODERATE RISK >11.0 HIGH RISK Performed By: #### T SH, CMP, LIPID, FT3 #### [facility] [address] [place] [address] Dr. Chana Ceballos Cholesterol [Mass/Vol] 217 mg/dL Critically high <=200 [facility] Comment on above: Performed By: #### T SH, CMP, LIPID, FT3 #### [facility] [address] [place] [address] Dr. Chana Ceballos Cholesterol in HDL [Mass/Vol] 38 mg/dL Critically low 40-60 [facility] Comment on above: Performed By: #### T SH, CMP, LIPID, FT3 #### [facility] [address] [place] [address] Dr. Chana Ceballos Cholesterol in LDL [Mass/Vol] 137.4 mg/dL Normal [facility] Comment on above: Performed By: #### T SH, CMP, LIPID, FT3 #### [facility] [address] [address] [address] Chana Ceballos Cholesterol.total/Ch olesterol in HDL [Mass ratio] 5.7 {ratio} Normal [facility] Comment on above: Performed By: #### T SH, CMP, LIPID, FT3 #### [facility] [address] [address] [address] Chana Ceballos HDL NORMAL > or = 60 mg/dl - LOW CARDIOVASCULAR RISK <40 mg/dl - HIGH CARDIOVASCULAR RISK Normal [facility] Comment on above: Performed By: #### T SH, CMP, LIPID, FT3 #### [facility] [address] [address] [address] Chana Ceballos LDL CALC NORMAL SEE BELOW Normal [facility] Comment on above: Result Comment: <100 mg/dl OPTIMAL 100 - 129 mg/dl NEAR OR ABOVE OPTIMAL 130 - 159 mg/dl BORDERLINE HIGH 160 - 189 mg/dl HIGH >190 mg/dl VERY HIGH Performed By: #### T SH, CMP, LIPID, FT3 #### [facility] [address] [address] [address] Chana Ceballos Triglyceride [Mass/Vol] 208 mg/dL Critically high <=150 [facility] Comment on above: Performed By: #### T SH, CMP, LIPID, FT3 #### [facility] [address] [address] [address] Chana Ceballos VLDL CALC 41.6 mg/dL Normal [facility] Comment on above: Performed By: #### T SH, CMP, LIPID, FT3 #### [facility] [address] [address] [address] Chana Ceballos PROF 14(COMP METB)on 022 Albumin [Mass/Vol] 4.2 g/dL Normal 3.4-5.[address] [facility] Comment on above: Performed By: #### T SH, CMP, LIPID, FT3 #### [facility] [address] [address] [address] Chana Ceballos Albumin/Globulin [Mass ratio] 1.2 {ratio} Normal [facility] Comment on above: Performed By: #### T SH, CMP, LIPID, FT3 #### [facility] [address] [place] [address] Dr. Chana Ceballos ALP [Catalytic activity/Vol] 61 U/L Normal 46-116 [facility] Comment on above: Performed By: #### T SH, CMP, LIPID, FT3 #### [facility] [address] [place] [address] Dr. Chana Ceballos ALT [Catalytic activity/Vol] 29 U/L Normal 14-59 [facility] Comment on above: Performed By: #### T SH, CMP, LIPID, FT3 #### [facility] [address] [place] [address] Dr. Chana Ceballos Anion gap [Moles/Vol] 14.3 mmol/L Normal [facility] Comment on above: Performed By: #### T SH, CMP, LIPID, FT3 #### [facility] [address] [place] [address] Dr. Chana Ceballos AST [Catalytic activity/Vol] 17 U/L Normal 15-37 [facility] Comment on above: Performed By: #### T SH, CMP, LIPID, FT3 #### [facility] [address] [place] [address] Dr. Chana Ceballos Bilirubin [Mass/Vol] 0.2 mg/dL Normal 0.2-1.0 [facility] Comment on above: Performed By: #### T SH, CMP, LIPID, FT3 #### [facility] [address] [place] [address] Dr. Chana Ceballos Calcium [Mass/Vol] 9.0 mg/dL Normal 8.5-10.[address] [facility] Comment on above: Performed By: #### T SH, CMP, LIPID, FT3 #### [facility] [address] [place] [address] Dr. Chana Ceballos Chloride [Moles/Vol] 103 mmol/L Normal 98-107 [facility] Comment on above: Performed By: #### T SH, CMP, LIPID, FT3 #### [facility] [address] [place] [address] Dr. Chana Ceballos CO2 [Moles/Vol] 25.1 mmol/L Normal 21.0-32.0 [facility] Comment on above: Performed By: #### T SH, CMP, LIPID, FT3 #### [facility] [address] [address] [address] Chana Ceballos Creatinine [Mass/Vol] 0.93 mg/dL Normal 0.55-1.02 [facility] Comment on above: Performed By: #### T SH, CMP, LIPID, FT3 #### [facility] [address] [address] [address] Chana Ceballos EGFR-AF [place] >60 Normal >=60 [facility] Comment on above: Performed By: #### T SH, CMP, LIPID, FT3 #### [facility] [address] [address] [address] Chana Ceballos EGFR-NON AF [place] >60 Normal >=60 [facility] Comment on above: Performed By: #### T SH, CMP, LIPID, FT3 #### [facility] [address] [address] [address] Chana Ceballos Globulin (S) [Mass/Vol] 3.4 g/dL Normal [facility] Comment on above: Performed By: #### T SH, CMP, LIPID, FT3 #### [facility] [address] [address] [address] Chana Ceballos Glucose [Mass/Vol] 198 mg/dL Critically high 74-106 [facility] Comment on above: Performed By: #### T SH, CMP, LIPID, FT3 #### [facility] [address] [address] [address] Chana Ceballos Potassium [Moles/Vol] 4.4 mmol/L Normal 3.5-5.1 [facility] Comment on above: Performed By: #### T SH, CMP, LIPID, FT3 #### [facility] [address] [address] [address] Chana Ceballos Protein [Mass/Vol] 7.6 g/dL Normal 6.4-8.[address] [facility] Comment on above: Performed By: #### T SH, CMP, LIPID, FT3 #### [facility] [address] [address] [address] Chana Ceballos Sodium [Moles/Vol] 138 mmol/L Normal 136-[address] [facility] Comment on above: Performed By: #### T SH, CMP, LIPID, FT3 #### [facility] [address] [place] [address] Dr. Chana Ceballos Urea nitrogen [Mass/Vol] 18.0 mg/dL Normal 7.0-18.0 [facility] Comment on above: Performed By: #### T SH, CMP, LIPID, FT3 #### [facility] [address] [address] [address] Chana Ceballos Urea nitrogen/Creatinine [Mass ratio] 19.4 mg/mg Normal [facility] Comment on above: Performed By: #### T SH, CMP, LIPID, FT3 #### [facility] [address] [address] [address] Chana Ceballos TSHon 10-05-2021 TSH 2.219 uIU/mL Normal 0.358-3.740 [facility] Comment on above: Performed By: #### T SH, CMP, LIPID, FT3 #### [facility] [address] [place] [address] Dr. Chana Ceballos Vital Signs Date Time Vital Sign Value Performing Clinician Facility 07-12-2023 11:25-0400 Diastolic blood pressure 88 mm[Hg] MD Jaja Parry Work Phone: [facility] 07-12-2023 11:25-0400 Heart rate 82 /min MD Jaja Parry Work Phone: [facility] 07-12-2023 11:25-0400 Respiratory rate 16 /min MD Jaja Parry Work Phone: [facility] 07-12-2023 11:25-0400 SaO2% (BldA) [Mass fraction] 99 % MD Jaja Parry Work Phone: [facility] 07-12-2023 11:25-0400 Systolic blood pressure 138 mm[Hg] MD Jaja Parry Work Phone: [facility] 07-12-2023 10:51-0400 Inhaled oxygen flow rate 3 L/min MD Jaja Parry Work Phone: [facility] 07-12-2023 09:56-0400 Body height 167.64 cm MD Jaja Parry Work Phone: [facility] 07-12-2023 09:56-0400 Body weight 108.86 kg MD Jaja Parry Work Phone: [facility] 06-17-2023 08:47-0400 Body height 167.64 cm [facility] 06-17-2023 08:47-0400 Body mass index (BMI) [Ratio] 38.4 kg/m2 [facility] 06-17-2023 08:47-0400 Body weight 108 kg [facility] 05-09-2023 08:58-0400 Body height 167.64 cm [facility] 05-09-2023 08:58-0400 Body mass index (BMI) [Ratio] 38.7 kg/m2 [facility] 05-09-2023 08:58-0400 Body weight 108.94 kg [facility] 07-28-2022 08:15-0400 Body height 167.64 cm Hudson Gu Other [facility] Other 07-28-2022 08:15-0400 Body mass index (BMI) [Ratio] 38.73 kg/m2 Hudson Gu Other [facility] Other 07-28-2022 08:15-0400 Body weight 108.86 kg Hudson Gu Other [facility] Other 12-12-2021 13:05-0400 Body height 167.64 cm Liliya Fletcher Other [facility] Other 12-12-2021 13:05-0400 Body mass index (BMI) [Ratio] 35.51 kg/m2 Liliya Fletcher Other [facility] Other 12-12-2021 13:05-0400 Body temperature 97.9 [degF] Liliya Fletcher Other [facility] Other 12-12-2021 13:05-0400 Body weight 99.79 kg Liliya Fletcher Other [facility] Other 12-12-2021 13:05-0400 Diastolic blood pressure 74 mm[Hg] Liliya Fletcher Other [facility] Other 12-12-2021 13:05-0400 Respiratory rate 18 /min Liliya Fletcher Other [facility] Other 12-12-2021 13:05-0400 SaO2% (BldA) [Mass fraction] 99 % Liliya Fletcher Other [facility] Other 12-12-2021 13:05-0400 Systolic blood pressure 138 mm[Hg] Liliya Fletcher Other [facility] Other 2021 12:30-0400 Body height 167.64 cm Dorys Pughault Other [facility] Other 2021 12:30-0400 Body mass index (BMI) [Ratio] 36.31 kg/m2 Dorys Prudencio Other [facility] Other 2021 12:30-0400 Body temperature 97 [degF] Doyrs Prudencio Other [facility] Other 2021 12:30-0400 Body weight 102.06 kg Dorys Flannery Other [facility] Other Encounters Encounter Date Encounter Type Care Provider Facility Start: 10-13-2023 End: 10-13-2023 ambulatory MD Jaja Parry Work Phone: [facility] Work Phone: Start: 10-13-2023 End: 10-13-2023 Patient encounter procedure MD Jaja Parry Work Phone: [facility] Work Phone: Start: 08-01-2023 End: 08-01-2023 ambulatory MD Jaja Parry Work Phone: [facility] Work Phone: Start: 08-01-2023 End: 08-01-2023 Patient encounter procedure MD Jaja Parry Work Phone: [facility] Work Phone: Start: 07-12-2023 Non-patient / Non-visit MD Linnea Parry Work Phone: [facility] Work Phone: Start: 07-12-2023 End: 07-12-2023 Admission to same day surgery center MD Jaja Parry Work Phone: [facility] Work Phone: Start: 07-12-2023 End: 07-12-2023 ambulatory MD Jaja Parry Work Phone: [facility] Work Phone: Start: 06-30-2023 End: 06-30-2023 Patient encounter procedure MD Jaja Parry Work Phone: [facility] Work Phone: Start: 06-17-2023 End: 06-17-2023 ambulatory [facility] Work Phone: Start: 06-17-2023 End: 06-17-2023 Patient encounter procedure [facility] Work Phone: Start: 05-09-2023 End: 05-09-2023 ambulatory [facility] Work Phone: Start: 05-09-2023 End: 05-09-2023 Patient encounter procedure [facility] Work Phone: Start: 02-02-2023 End: 02-02-2023 ambulatory VALORIE JOSEPHO Not Available Start: 07-28-2022 End: 07-28-2022 ambulatory Hudson Gu Other [facility] Other Start: 07-28-2022 Office outpatient vi sit 25 minutes Hudson Gu [facility] Start: 06-23-2022 End: 06-24-[address] JAJA PARRY . Facility:[facility] Start: 06-14-2022 End: 06-14-2022 ambulatory Hudson Gu Other [facility] Other Start: 06-14-2022 Telephone encounter Hudson Gu [facility] Start: 03-09-2022 End: 04-08-2022 ambulatory HUDSON GU Facility:[facility] Start: 02-22-2022 End: 02-23-2022 ambulatory LILIYA HUTTON Facility:[facility] Start: 12-12-2021 Office outpatient vi sit 15 minutes Liliya Fletcher [facility] Start: 12-12-2021 End: 12-12-2021 ambulatory MD Jaja Parry Work Phone: [facility] Other Start: 12-12-2021 End: 12-12-2021 Patient encounter procedure MD Jaja Parry Work Phone: [facility] Start: 2021 End: 2021 ambulatory Dorys Pughault Other [facility] Other Start: 2021 Office outpatient ne w 20 minutes Dorys Flannery [facility] Start: 10-07-2021 Encounter for genera l adult medical examination without abnormal findings DR JAJA PARRY . [facility] Start: 10-05-2021 End: 10-06-[address] JAJA PARRY . Facility:[facility] Start: 10-05-2021 End: 10-06-2021 Encounter for general [...] left knee XR knee LT 2V Fir [facility] Start: 10-13-2023 XR Knee - left 2 Views [facility] Start: 07-12-2023 [facility] Patient Education Know your Meds Felter Non Diagnostic Block [facility] Work Phone: Patient referral [facility] Work Phone: Payers Date Payer Category Payer Self-pay 2012 Unknown [id number] 1965 Unknown [id number] 2.16.84 [id number] 1965 Unknown [id number] 2.16.84 [id number] 1965 Unknown [id number] 2.16.84 [id number] 1965 Unknown [id number] 2.16.84 [id number] 1965 Unknown [id number] 1961 Blue [employer] Blue Shield [id number] Unknown [place] [employer]/BS [id number] Unknown [id number] 2.16.8 [id number] Unknown [id number] 2.16.8 [id number] Social History Date Type Detail Facility Sex Assigned At [facility] Other Start: 1965 Sex Assigned At Female F [facility] Goals Date Patient Goal Desired Activity /State Clinical Notes 2021 to 07-12-2023 Note Date & Type Note Facility 07-12-2023 Procedure note [facility] 05-09-2023 Evaluation note Authored May 09, 2023 9:1 6am We performed a 4/1cc Marcain e / Kenalog cortisone injection into the knee joint under sterile technique. Patient tolerated the injection well without adverse reaction. Patient can follow up as needed. Note scribed by ESEQUIEL Valle, reviewed and amended by myself Hudson Gu D.O. [facility] Work Phone: [phone]) 936-195006-14-2023 Evaluation note* Encounter Date Diagnosis Assessment Notes [...] tolerated the injection well without adverse reaction. [facility] Other 05-01-2023 Evaluation note* Encounter Date Diagnosis Assessment Notes Treatment Notes Treatment Clinical Notes June, Acute meniscal tear of left knee, initial encounter (ICD-10 - S83.207A) [facility] Other 10-29-2022 Evaluation note* Encounter Date Diagnosis [...] Nov, Other Contusion mater ial was printed [facility] Other 08-28-2022 Evaluation note* Encounter Date Diagnosis [...] COVID POSITIVE education handout discharge instructions. given. [facility] Other Evaluation noteNo assessment information available [facility] Work Phone: Evaluation note* Author Mare Ramirez [facility] Authored May 09, 2023 9:1 6am We performed a 4/1cc Marcain e / Kenalog cortisone injection into the knee joint under sterile technique. Patient tolerated the injection well without adverse reaction. Patient can follow up as needed. Note scribed by ESEQUIEL Valle, reviewed and amended by myself Hudson Gu D.O. [facility] Work Phone: Evaluation note* Diagnosis Onset Date Resolution Status Chronic pain acute Knee pain acute Osteoarthritis of left knee acute Chronic pain acute Contusion of left knee acute Knee pain acute Osteoarthritis of left knee acute [facility] Work Phone: History general Narrative - Reported* Type Description Date Medical History diabetes Surgical History c-sections - 2 Surgical History oophorectomy Surgical History hysterectomy [facility] Other Hisaisa general Narrative - Reported* Type Description Date Medical History diabetes Medical History high cholesterol Surgical History c-sections - 2 Surgical History oophorectomy Surgical History hysterectomy [facility] Other Chief Complaint and Reason for Visit [...] pain Osteoarthritis of left knee Advance Directives No Advanced Directives Records Found Advance Directive Response Recorded Date/ Time Advance Directives No December 12, 2021 1:39pm Summary Purpose Family History No Family History Records Found Relationship Condition Age at Onset Recorded Date/T [...] Active Team Status: Inactive Member Role Status Dates Jaja Parry MD Primary Care Provider Active Start: May 09, 2023 End: May 09, 2023 Hudson Gu DO Attending Provider Active S tart: May 09, 2023 End: May 09, 2023 Team Status: Inactive Member Role Status Dates Jaja Parry MD Primary Care Provider Active Start: [...] and content) DATE CREATED AUTHOR 06/27/2022 [facility] DATE CREATED AUTHOR AUTHOR'S ORGANIZ ATION 02/03/2023 [facility]ical [facility] DATE CREATED AUTHOR AUTHOR'S ORGANIZ ATION 10/26/2023 [facility] FOR RECORDS PERTAINING TO PATIENTS [...] BE BASED ON THE PRIMARY CLINICAL RECORDS. [facility] [employer] [facility]. provides no warranty or guarantee of the accuracy or completeness of information in this document.
[2023-11-29 08:05] LABS: Basophils Percent Auto 0.3 % (0.2-2.0); Eosinophils Absolute Auto 0.1 10^3/uL (0.0-0.7); Hematocrit 42.7 % (36.0-48.0); Hemoglobin 13.7 g/dL (12.0-16.0); Immature Granulocytes Abs Auto 0.02 10^3/uL (0.00-0.03); Immature Granulocytes Pct Auto 0.3 % (0.0-0.5); Lymphocytes Percent Auto 16.1 % (20.5-60.0); Mean Corpuscular HGB Conc 32.1 g/dL (29.9-35.2); Mean Corpuscular Volume 93.4 fL (81.0-99.0); Mean Platelet Volume 11.7 fL (9.5-13.5); Monocytes Absolute Auto 0.8 10^3/uL (0.3-0.8); Monocytes Percent Auto 13.9 % (1.7-12.0); Neutrophils Absolute Auto 4.1 10^3/uL (1.4-6.5); Neutrophils Percent Auto 67.4 % (43.0-75.0); Platelet Count 187 10^3/uL (150-450); Red Blood Count 4.57 10^6/uL (4.20-5.40); Red Cell Distribution Width 13.2 % (11.0-15.0)
[2023-11-29 08:40] LABS: Estimated Average Glucose 143 mg/dL; Glycohemoglobin A1C 6.6 % (4.5-6.2)
[2023-11-29 09:08] LABS: Alanine Aminotransferase 27 U/L (14-59); Albumin Globulin Ratio 1.1; Albumin Level 3.6 g/dL (3.4-5.0); Alkaline Phosphatase 56 U/L (46-116); Anion Gap 16.6; Aspartate Amino Transferase 27 U/L (15-37); BUN Creatinine Ratio 19.3; Bilirubin Total 0.6 mg/dL (0.2-1.0); Calcium 8.7 mg/dL (8.5-10.1); Carbon Dioxide 24.6 mmol/L (21.0-32.0); Chloride 105 mmol/L (98-107); Chol HDL Ratio 5.3; Cholesterol 202 mg/dL (<=200); Estimated GFR (African America >60 (>=60 mL/min/1.73m^2); Estimated GFR (Non-African Ame 51 (>=60 mL/min/1.73m^2); Globulin 3.3 g/dL; Glucose 151 mg/dL (74-106); HDL Cholesterol 38 mg/dL (40-60); Potassium 4.2 mmol/L (3.5-5.1); Sodium 142 mmol/L (136-145); Thyroid Stimulating Hormone 2.436 uIU/mL (0.358-3.740); Total Protein 6.9 g/dL (6.4-8.2); Triglycerides 294 mg/dL (<=150); VLDL CHOLESTEROL 58.8 mg/dL
[2023-11-29 12:10] LABS: Free T4 1.08 ng/dL (0.76-1.46)
== END 2023-11-29 07:41 | disposition home or self-care (01) ==
LOC: LAB 07:41
PROVIDERS: PCP Family Medicine; Visit Provider Family Medicine
DX: R53.83 Other fatigue (principal); E78.5 Hyperlipidemia, unspecified; Z12.11 Encounter for screening for malignant neoplasm of colon; E11.9 Type 2 diabetes mellitus without complications
CPT/HCPCS: 36415; 80053; 80061; 83036; 84436; 84439; 84443; 85025

== ENCOUNTER 2024-03-17 15:35 | Emergency (ER) | payer OTHER, SELFPAY ==
[2024-03-17] VITALS (27 sets, daily range): BP systolic 139–224; BP diastolic 74–108; PULSE 71–88; TEMP 36.5; O2SAT 96–100; BMI 28.5
--- NOTE | 2024-03-17 15:47 | XR_ITS ---
The [address] [address] Patient Name: RJ PINZON MRN: [id number] date: 1965 Sex: F Assigned Patient Location: ER Current Patient Location: ER Accession/Order Number: [id number] Exam Date: 03/17/2024 16:00 Report Date: 03/17/2024 16:56 At the request of: AYALA CURRAN Procedure: XR chest 1V EXAM: XR chest 1V at 1558 hours HISTORY: chest pain COMPARISON: 10/06/2011 TECHNIQUE: AP upright portable chest x-ray FINDINGS: The heart is not enlarged and the vasculature is not distended. No acute infiltrate, effusion or pneumothorax is identified. The osseous structures are grossly intact. XR/XR chest 1V IMPRESSION: No acute infiltrate or evidence of cardiac decompensation. The overall appearance of the chest is essentially unchanged. Electronically authenticated by: NAMITA IBARRA Date: 03/17/2024 16:56
--- NOTE | 2024-03-17 15:47 | ECG_ITS ---
The [facility] Test Date: 2024-03-17 Pat Name: RJ PINZON Department: Room: - Gender: Female Supervisor Remelt: : 1965 Requested By: JAJA DILL Order Number: [id number] Reading MD: JAJA DILL Measurements Intervals Burton Rate: 78 P: 64 AL: 158 QRS: 45 QRSD: 88 T: 44 QT: 390 QTc: 423 Interpretive Statements 1100 Sinus rhythm 9110 normal ECG Compared to ECG 01/13/2023 19:03:59 No significant changes Electronically Signed On 03-19-2024 13:34:01 EST by JAJA DILL
--- OUTSIDE RECORDS SUMMARY | 2024-03-17 15:49 | XMS_ITS | CCD ---
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 Name Role Phone Dorys Flannery Unavailable Liliya Fletcher Unavailable MD Jaja Parry Primary Care Provider [phone] HAKEEM Fletcher Attending Provider Hudson Gu Unavailable [...] Unavailable MD Jaja Parry Primary Care Provider [phone] MD Gregg Nassar Attending Provider [phone] MD Jaja Parry Primary Care Provider [phone] MD Gregg Nassar Attending Provider Gregg Nassar Attending Unavailable Jaja Parry Primary Care Unavailable Gregg Nassar Admitting Unavailable Jaja Parry Primary Care Unavailable Gregg Nassar Admitting Unavailable Gregg Nassar Attending Unavailable Allergies Allergy Classification Reported Allergen(s) Allergy Type Date of Onset Reaction(s) Facility Angiotensin Converting Enzyme (ROSS) Inhibitors (1 source) Lisinopril Drug Allergy [address] [place] [address] Cephalosporins (antibiotic) (1 source) Cephalexin Drug Allergy 4 Unknown Reaction [facility] (5 sources) Cephalexin; Translations: [Keflex] Drug Allergy 4 Unknown [facility] (1 source) Corticosteroids Drug allergy (disorder) 4 [facility] (1 source) DULoxetine Drug Allergy 4 [facility] (4 sources) Cephalexin; Translations: [cephalexin] Drug Allergy 4 Unknown Reaction [facility] (4 sources) Lisinopril; Translations: [lisinopril] Drug Allergy 4 Rash [facility] Medications Current Medications Medication Drug Class(es) [...] dispense #42 (forty two) DX: S83.207A Vit C-S.Lkanep-Uwypvm-Qtrfd Sd (Tart Thapa) [id number] mg capsule (4 sources) Start: 07-12-2023 Vit C-S.Thapa -Celery-Grape Sd (Tart Thapa) [id number] mg capsule Active CAP PO July 12, [...] LT 2Von 10-13-2023 XR knee LT 2V [facility] [address] [place] [address] XRay Report Signed Patient: Susanne Clark MR#: [id number] : 1965 Acct:[id number] Age/Sex: 58 / F ADM Date: 10/13/23 [place] [facility] [place]: Type: [facility] Attending Dr: Gregg Nassar MD Copies [...] Foster Jr., D.O.10/13/2023 12:32 PM Dictation Location: [place] [address] Transcribed By: [facility] 10/13/23 1232 Dictated By: Freedom Foster Jr, DO 10/13/23 1231 Signed By: 10/13/23 1232 Normal [facility] MRI KNEE LT WO CONon [...] by: NOHEMY MARCOS Date: 2022-02-22 08:51 Normal [facility] XR knee LT 4V*on 12-12-2021 XR knee LT 4V* [facility] [employer] Other XR knee LT 4V* [facility] [employer] Other XR knee LT 4V* [address] [place] [address] [employer] Other XR knee LT 4V* [place] [address] No rt [employer] Other XR knee LT 4V* XRay Report [employer] Other XR knee LT 4V* Signed [employer] Other XR knee LT 4V* Patient: Susanne Clark MR#: [id number] [employer] Other XR knee LT 4V* [id number] [employer] Other XR knee LT 4V* : 1965 Acct:[id number] [employer] Other XR knee LT 4V* Age/Sex: 56 / F ADM Date: 12/12/21 [employer] Other XR knee LT 4V* Loc: [facility] Room: Type: [facility] [employer] Other XR knee LT 4V* Attending Dr: Liliya PALACIO [employer] Other XR knee LT 4V* Copies to: HAKEEM Lim [employer] Other XR knee LT 4V* Ordering Provider: HAKEEM Lim [employer] Other XR knee LT 4V* Date of Service: 12/12/21 [employer] Other XR knee LT 4V* XR/XR knee LT 4V*: Acute pain of left knee [employer] Other XR knee LT 4V* XR knee LT 4V* 12/12/2021 12:41 PM [employer] Other XR knee LT 4V* SIGNS AND SYMPTOMS: Left knee pain after fall [employer] Other XR knee LT 4V* PROTOCOL: Frontal, lateral, and oblique radiographs of the left knee [employer] Other XR knee LT 4V* COMPARISON: None Nort [employer] Other XR knee LT 4V* FINDINGS: [employer] Other XR knee LT 4V* There is mild narrowing of the patellofemoral joint space with minimal narrowing of the medial [employer] Other XR knee LT 4V* weightbearing joint space. There is no evidence of fracture. No dislocation or subluxation. No [employer] Other XR knee LT 4V* joint effusion. No significant soft tissue swelling. [employer] Other XR knee LT 4V* XR/XR knee LT 4V* [employer] Other XR knee LT 4V* IMPRESSION: [employer] Other XR knee LT 4V* No acute bony injury. [employer] Other XR knee LT 4V* Mild degenerative changes are noted, as above. [employer] Other XR knee LT 4V* Impression dictated by: Bernardo Camacho M.D.12/12/2021 12:59 PM [employer] Other XR knee LT 4V* Dictation Location: [place] [address] [employer] Other XR knee LT 4V* Transcribed By: PWS 12/12/21 1259 [employer] Other XR knee LT 4V* Dictated By: Bernardo Camacho II, MD 12/12/21 1258 [employer] Other XR knee LT 4V* Signed By: [employer] Other XR knee LT 4V* 12/12/21 1256 [employer] Other SARS-CoV-2 (COVID-19) RNA NA A+probe Ql (Resp)on 2021 SARS-CoV-2 (COVID-19) RNA ALYSSA+probe Ql (Unsp spec) Positive [employer] Other T4 [facility] 10-06-2021 T4 [Mass/Vol] 7.2 ug/dL Normal 4.5-12.0 [facility] Comment on above: Performed By: #### T 4LC #### [facility] [address] [place] [address] [address] Chana Ceballos VIT D 25-OH [facility] 2021 Vitamin D, 25-Hydroxy 33.8 ng/mL Normal 30.0-100.0 [facility] Comment on above: Result Comment: Divya min D deficiency has been defined by the [place] of Medicine and an Endocrine Society practice guideline as a level of serum 25-OH vitamin D less than 20 ng/mL (1,2). The Endocrine Society went on to further define vitamin D insufficiency as a level between 21 and 29 ng/mL (2). 1. IOM ([place] of Medicine). 2010. Dietary reference intakes for calcium and D. [place]: The National Academies Press. 2. Sundar MF, Dinorah RIVERA, Kimberly GIBSON et al. Evaluation, treatment, and prevention of vitamin D deficiency: an Endocrine Society clinical practice guideline. JCEM. 2010; 96(7):1911-30. Performed By: #### V ITADLC #### [facility] [address] [place] [address] Dr. Chana Ceballos CBC AUTO DIFFon 10-05-2021 BASO # 0.0 103/ul Normal 0.0-0.1 [facility] Comment on above: Performed By: #### C BC #### [facility] [address] [place] [address] Dr. Chana Ceballos Basophils/100 WBC (Bld) 0.3 % Normal 0.2-2.0 [facility] Comment on above: Performed By: #### C BC #### [facility] [address] [place] [address] Dr. Chana Ceballos EO # 0.2 103/ul Normal 0.0-0.7 [facility] Comment on above: Performed By: #### C BC #### [facility] [address] [place] [address] Dr. Chana Ceballos Eosinophils/100 WBC (Bld) 2.1 % Normal 0.9-7.0 [facility] Comment on above: Performed By: #### C BC #### [facility] [address] [place] [address] Dr. Chana Ceballos Erythrocyte distribution width (RBC) [Ratio] 12.3 % Normal 11.0-15.0 [facility] Comment on above: Performed By: #### C BC #### [facility] [address] [place] [address] Dr. Chana Ceballos Hematocrit (Bld) [Volume fraction] 41.7 % Normal 36.0-48.0 [facility] Comment on above: Performed By: #### C BC #### [facility] [address] [place] [address] Dr. Chana Ceballos Hemoglobin (Bld) [Mass/Vol] 13.6 g/dL Normal 12.0-16.0 [facility] Comment on above: Performed By: #### C BC #### [facility] [address] [place] [address] [address] Chana Ceballos IG # 0.04 10e3/ul Critically high 0.00-0.03 [facility] Comment on above: Performed By: #### C BC #### [facility] [address] [place] [address] [address] Chana Ceballos IG % 0.6 % Critically high 0.0-0.5 [facility] Comment on above: Performed By: #### C BC #### [facility] [address] [place] [address] Dr. Chana Ceballos LYMPH # 1.4 103/ul Normal 1.2-3.8 [facility] Comment on above: Performed By: #### C BC #### [facility] [address] [place] [address] Dr. Chana Ceballos Lymphocytes/100 WBC (Bld) 19.8 % Critically low 20.5-60.0 [facility] Comment on above: Performed By: #### C BC #### [facility] [address] [place] [address] Dr. Chana Ceballos MANUAL DIFF REQ NO Normal [facility] Comment on above: Performed By: #### C BC #### [facility] [address] [place] [address] Dr. Chana Ceballos MCH (RBC) [Entitic mass] 30.3 pg Normal 26.7-34.0 [facility] Comment on above: Performed By: #### C BC #### [facility] [address] [place] [address] Dr. Chana Ceballos MCHC (RBC) [Mass/Vol] 32.6 g/dL Normal 29.9-35.2 [facility] Comment on above: Performed By: #### C BC #### [facility] [address] [place] [address] Dr. Chana Ceballos MCV (RBC) [Entitic vol] 92.9 fL Normal 81.0-99.0 [facility] Comment on above: Performed By: #### C BC #### [facility] [address] [place] [address] Dr. Chana Ceballos MONO # 0.7 103/ul Normal 0.3-0.8 [facility] Comment on above: Performed By: #### C BC #### [facility] [address] [place] [address] Dr. Chana Ceballos Monocytes/100 WBC (Bld) 10.2 % Normal 1.7-12.0 [facility] Comment on above: Performed By: #### C BC #### [facility] [address] [place] [address] Dr. Chana Ceballos NEUT # 4.7 103/ul Normal 1.4-6.5 [facility] Comment on above: Performed By: #### C BC #### [facility] [address] [place] [address] Dr. Chana Ceballos Neutrophils/100 WBC (Bld) 67.0 % Normal 43.0-75.0 [facility] Comment on above: Performed By: #### C BC #### [facility] [address] [place] [address] Dr. Chana Ceballos Platelet mean volume (Bld) [Entitic vol] 11.0 fL Normal 9.5-13.5 [facility] Comment on above: Performed By: #### C BC #### [facility] [address] [place] [address] Dr. Chana Ceballos PLT 212 103/ul Normal 150-450 [facility] Comment on above: Performed By: #### C BC #### [facility] [address] [place] [address] Dr. Chana Ceballos WBC 7.1 103/ul Normal 4.0-11.0 [facility] Comment on above: Performed By: #### C BC #### [facility] [address] [place] [address] Dr. Chana Ceballos FREE T3on 10-05-2021 FREE T3 2.32 pg/mlL Normal 2.18-3.98 [facility] Comment on above: Performed By: #### T SH, CMP, LIPID, FT3 #### [facility] [address] [place], [place] [id number] Dr. Chana Ceballos GLYCOHEMOGLOBIN A1Con 2021 ADA RECOMMENDATION SEE BELOW Normal [facility] Comment on above: Result Comment: ADA RECOMMENDED LIMIT 4.0 - 6.0 ADA THERAPEUTIC TARGET < 7.0 ACTION SUGGESTED > 7.0 Performed By: #### A 1C #### [facility] [address] [place] [address] Dr. Chana Ceballos Glucose [Mass/Vol] 169 mg/dL Normal [facility] Comment on above: Performed By: #### A 1C #### [facility] [address] [place] [address] Dr. Chana Ceballos HbA1c (Bld) [Mass fraction] 7.5 % Critically high 4.5-6.2 [facility] Comment on above: Performed By: #### A 1C #### [facility] [address] [place] [address] Dr. Chana Ceballos LIPID PROFILEon 10-05-2021 CHOL-HDL RATIO NORM SEE BELOW Normal [facility] Comment on above: Result Comment: 3.3 - 4.4 LOW RISK 4.4 - 7.1 AVERAGE RISK 7.1 - 11.0 MODERATE RISK >11.0 HIGH RISK Performed By: #### T SH, CMP, LIPID, FT3 #### [facility] [address] [place] [address] Dr. Chana Ceballos Cholesterol [Mass/Vol] 217 mg/dL Critically high <=200 [facility] Comment on above: Performed By: #### T SH, CMP, LIPID, FT3 #### [facility] [address] [place] [address] Dr. Chana Ceballos Cholesterol in HDL [Mass/Vol] 38 mg/dL Critically low 40-60 [facility] Comment on above: Performed By: #### T SH, CMP, LIPID, FT3 #### [facility] [address] [place] [address] Dr. Chana Ceballos Cholesterol in LDL [Mass/Vol] 137.4 mg/dL Normal [facility] Comment on above: Performed By: #### T SH, CMP, LIPID, FT3 #### [facility] [address] [place] [address] [address] Chana Ceballos Cholesterol.total/Ch olesterol in HDL [Mass ratio] 5.7 {ratio} Normal [facility] Comment on above: Performed By: #### T SH, CMP, LIPID, FT3 #### [facility] [address] [place] [address] [address] Chana Ceballos HDL NORMAL > or = 60 mg/dl - LOW CARDIOVASCULAR RISK <40 mg/dl - HIGH CARDIOVASCULAR RISK Normal [facility] Comment on above: Performed By: #### T SH, CMP, LIPID, FT3 #### [facility] [address] [place] [address] [address] Chana Ceballos LDL CALC NORMAL SEE BELOW Normal [facility] Comment on above: Result Comment: <100 mg/dl OPTIMAL 100 - 129 mg/dl NEAR OR ABOVE OPTIMAL 130 - 159 mg/dl BORDERLINE HIGH 160 - 189 mg/dl HIGH >190 mg/dl VERY HIGH Performed By: #### T SH, CMP, LIPID, FT3 #### [facility] [address] [place] [address] [address] Chana Ceballos Triglyceride [Mass/Vol] 208 mg/dL Critically high <=150 [facility] Comment on above: Performed By: #### T SH, CMP, LIPID, FT3 #### [facility] [address] [place] [address] [address] Chana Ceballos VLDL CALC 41.6 mg/dL Normal [facility] Comment on above: Performed By: #### T SH, CMP, LIPID, FT3 #### [facility] [address] [place] [address] [address] Chana Ceballos PROF 14(COMP METB)on 022 Albumin [Mass/Vol] 4.2 g/dL Normal 3.4-5.0 [facility] Comment on above: Performed By: #### T SH, CMP, LIPID, FT3 #### [facility] [address] [place] [address] [address] Chana Ceballos Albumin/Globulin [Mass ratio] 1.2 {ratio} Normal [facility] Comment on above: Performed By: #### T SH, CMP, LIPID, FT3 #### [facility] [address] [place] [address] Dr. Chana Ceballos ALP [Catalytic activity/Vol] 61 U/L Normal 46-116 [facility] Comment on above: Performed By: #### T SH, CMP, LIPID, FT3 #### [facility] [address] [place] [address] Dr. Chana Ceballos ALT [Catalytic activity/Vol] 29 U/L Normal 14-59 [facility] Comment on above: Performed By: #### T SH, CMP, LIPID, FT3 #### [facility] [address] [place] [address] Dr. Chana Ceballos Anion gap [Moles/Vol] 14.3 mmol/L Normal [facility] Comment on above: Performed By: #### T SH, CMP, LIPID, FT3 #### [facility] [address] [place] [address] Dr. Chana Ceballos AST [Catalytic activity/Vol] 17 U/L Normal 15-37 [facility] Comment on above: Performed By: #### T SH, CMP, LIPID, FT3 #### [facility] [address] [place] [address] Dr. Chana Ceballos Bilirubin [Mass/Vol] 0.2 mg/dL Normal 0.2-1.0 [facility] Comment on above: Performed By: #### T SH, CMP, LIPID, FT3 #### [facility] [address] [place] [address] Dr. Chana Ceballos Calcium [Mass/Vol] 9.0 mg/dL Normal 8.5-10.1 [facility] Comment on above: Performed By: #### T SH, CMP, LIPID, FT3 #### [facility] [address] [place] [address] Dr. Chana Ceballos Chloride [Moles/Vol] 103 mmol/L Normal 98-107 [facility] Comment on above: Performed By: #### T SH, CMP, LIPID, FT3 #### [facility] [address] [place] [address] Dr. Chana Ceballos CO2 [Moles/Vol] 25.1 mmol/L Normal 21.0-32.0 [facility] Comment on above: Performed By: #### T SH, CMP, LIPID, FT3 #### [facility] [address] [address] [address] Chana Ceballos Creatinine [Mass/Vol] 0.93 mg/dL Normal 0.55-1.02 [facility] Comment on above: Performed By: #### T SH, CMP, LIPID, FT3 #### [facility] [address] [place] [address] [address] Chana Ceballos EGFR-AF CITIZEN [place] >60 Normal >=60 [facility] Comment on above: Performed By: #### T SH, CMP, LIPID, FT3 #### [facility] [address] [place] [address] [address] Chana Ceballos EGFR-NON AF CITIZEN OF [place] >60 Normal >=60 [facility] Comment on above: Performed By: #### T SH, CMP, LIPID, FT3 #### [facility] [address] [address] [address] Chana Ceballos Globulin (S) [Mass/Vol] 3.4 g/dL Normal [facility] Comment on above: Performed By: #### T SH, CMP, LIPID, FT3 #### [facility] [address] [address] [address] Chana Ceballos Glucose [Mass/Vol] 198 mg/dL Critically high 74-106 [facility] Comment on above: Performed By: #### T SH, CMP, LIPID, FT3 #### [facility] [address] [address] [address] Chana Ceballos Potassium [Moles/Vol] 4.4 mmol/L Normal 3.5-5.1 [facility] Comment on above: Performed By: #### T SH, CMP, LIPID, FT3 #### [facility] [address] [address] [address] Chana Ceballos Protein [Mass/Vol] 7.6 g/dL Normal 6.4-8.2 [facility] Comment on above: Performed By: #### T SH, CMP, LIPID, FT3 #### [facility] [address] [address] [address] Chana Ceballos Sodium [Moles/Vol] 138 mmol/L Normal 136-145 [facility] Comment on above: Performed By: #### T SH, CMP, LIPID, FT3 #### [facility] [address] [place] [address] Dr. Chana Ceballos Urea nitrogen [Mass/Vol] 18.0 mg/dL Normal 7.0-18.0 [facility] Comment on above: Performed By: #### T SH, CMP, LIPID, FT3 #### [facility] [address] [address] [address] Chana Ceballos Urea nitrogen/Creatinine [Mass ratio] 19.4 mg/mg Normal [facility] Comment on above: Performed By: #### T SH, CMP, LIPID, FT3 #### [facility] [address] [address] [address] Chana Ceballos TSHon 10-05-2021 TSH 2.219 uIU/mL Normal 0.358-3.740 [facility] Comment on above: Performed By: #### T SH, CMP, LIPID, FT3 #### [facility] [address] [place] [address] Dr. Chana Ceballos Vital Signs Date Time Vital Sign Value Performing Clinician Facility 07-12-2023 11:25-0400 Diastolic blood pressure 88 mm[Hg] MD Jaja Parry Work Phone: [facility] 07-12-2023 11:25-0400 Heart rate 82 /min MD Jaja Parry Work Phone: [facility] 07-12-2023 11:25-0400 Respiratory rate 16 /min MD Jaja Parry Work Phone: [facility] 07-12-2023 11:25-0400 SaO2% (BldA) [Mass fraction] 99 % MD Jaja Parry Work Phone: [facility] 07-12-2023 11:25-0400 Systolic blood pressure 138 mm[Hg] MD Jaja Parry Work Phone: [facility] 07-12-2023 10:51-0400 Inhaled oxygen flow rate 3 L/min MD Jaja Parry Work Phone: [facility] 07-12-2023 09:56-0400 Body height 167.64 cm MD Jaja Parry Work Phone: [facility] 07-12-2023 09:56-0400 Body weight 108.86 kg MD Jaja Parry Work Phone: [facility] 06-17-2023 08:47-0400 Body height 167.64 cm [facility] 06-17-2023 08:47-0400 Body mass index (BMI) [Ratio] 38.4 kg/m2 [facility] 06-17-2023 08:47-0400 Body weight 108 kg [facility] 05-09-2023 08:58-0400 Body height 167.64 cm [facility] 05-09-2023 08:58-0400 Body mass index (BMI) [Ratio] 38.7 kg/m2 [facility] 05-09-2023 08:58-0400 Body weight 108.94 kg [facility] 07-28-2022 08:15-0400 Body height 167.64 cm Hudson Gu Other [facility] [employer] Other 07-28-2022 08:15-0400 Body mass index (BMI) [Ratio] 38.73 kg/m2 Hudson Gu Other [facility] [facility] [employer] Other 07-28-2022 08:15-0400 Body weight 108.86 kg Hudson Gu Other [employer] Other 12-12-2021 13:05-0400 Body height 167.64 cm Liliya Fletcher Other [employer] Other 12-12-2021 13:05-0400 Body mass index (BMI) [Ratio] 35.51 kg/m2 Liliya Fletcher Other [employer] Other 12-12-2021 13:05-0400 Body temperature 97.9 [degF] Liliya Fletcher Other [employer] Other 12-12-2021 13:05-0400 Body weight 99.79 kg Liliya Fletcher Other [employer] Other 12-12-2021 13:05-0400 Diastolic blood pressure 74 mm[Hg] Liliya Fletcher Other [employer] Other 12-12-2021 13:05-0400 Respiratory rate 18 /min Liliya Fletcher Other [employer] Other 12-12-2021 13:05-0400 SaO2% (BldA) [Mass fraction] 99 % Liliya Fletcher Other [employer] Other 12-12-2021 13:05-0400 Systolic blood pressure 138 mm[Hg] Liliya Fletcher Other [employer] Other 2021 12:30-0400 Body height 167.64 cm Dorys Pughault Other [employer] Other 2021 12:30-0400 Body mass index (BMI) [Ratio] 36.31 kg/m2 Dorys Prudencio Other [employer] Other 2021 12:30-0400 Body temperature 97 [degF] Dorys Prudencio Other [employer] Other 2021 12:30-0400 Body weight 102.06 kg Dorys Flannery Other [facility] [employer] Other Encounters Encounter Date Encounter Type Care Provider Facility Start: 10-13-2023 End: 10-13-2023 ambulatory MD Jaja Parry Work Phone: [facility] Work Phone: Start: 10-13-2023 End: 10-13-2023 Patient encounter procedure MD Jaja Parry Work Phone: [facility] Work Phone: Start: 08-01-2023 End: 08-01-2023 ambulatory MD Jaja Parry Work Phone: [facility] Work Phone: Start: 08-01-2023 End: 08-01-2023 Patient encounter procedure MD Jaja Parry Work Phone: [facility] Work Phone: Start: 07-12-2023 Non-patient / Non-visit MD Linnea Parry Work Phone: [facility] Work Phone: Start: 07-12-2023 End: 07-12-2023 Admission to same day surgery center MD Jaja Parry Work Phone: [facility] Work Phone: Start: 07-12-2023 End: 07-12-2023 ambulatory MD Jaja Parry Work Phone: [facility] Work Phone: Start: 06-30-2023 End: 06-30-2023 Patient encounter procedure MD Jaja Parry Work Phone: [facility] Work Phone: Start: 06-17-2023 End: 06-17-2023 ambulatory [facility] Work Phone: Start: 06-17-2023 End: 06-17-2023 Patient encounter procedure Formerly [facility] Work Phone: Start: 05-09-2023 End: 05-09-2023 ambulatory [facility] Work Phone: Start: 05-09-2023 End: 05-09-2023 Patient encounter procedure Formerly [facility] Work Phone: Start: 02-02-2023 End: 02-02-2023 ambulatory VALORIE JOSEPHO Not Available Start: 07-28-2022 End: 07-28-2022 ambulatory Hudson Gu Other [employer] Other Start: 07-28-2022 Office outpatient vi sit 25 minutes Hudson Gu [facility] Start: 06-23-2022 End: 06-24-[address] JAJA PARRY . Facility:[facility] Start: 06-14-2022 End: 06-14-2022 ambulatory Hudson Gu Other [employer] Other Start: 06-14-2022 Telephone encounter Hudson Gu [facility] Start: 03-09-2022 End: 04-08-2022 ambulatory HUDSON GU Facility:[facility] Start: 02-22-2022 End: 02-23-2022 ambulatory LILIYA HUTTON Facility:[facility] Start: 12-12-2021 Office outpatient vi sit 15 minutes Liliya Fletcher [facility] Start: 12-12-2021 End: 12-12-2021 ambulatory MD Jaja Parry Work Phone: [employer] Other Start: 12-12-2021 End: 12-12-2021 Patient encounter procedure MD Jaja Parry Work Phone: [facility] Start: 2021 End: 2021 ambulatory Dorys Pughault Other [facility] Other Start: 2021 Office outpatient ne w 20 minutes Dorys Flannery [facility] Start: 10-07-2021 Encounter for genera l adult medical examination without abnormal findings DR JAJA PARRY . [facility] Start: 10-05-2021 End: 10-06-[address] JAJA PARRY . Facility:[facility] Start: 10-05-2021 End: 10-06-2021 Encounter for general adult medical examination without abnormal findings DR JAJA PARRY . Facility: Procedures Date Procedure Procedure Detail Performing Clinician Start: 10-13-2023 X-ray of left knee MD Doloers Parry Work Phone: Start: 07-12-2023 Radiofrequency destr uction of peripheral nerve MD Jaja Parry Work Phone: Start: 12-12-2021 Radiologic examinati on of knee MD Jaja Parry Work Phone: Plan of Treatment Date Care Activity Detail Author Start: 10-13-2023 X-ray of left knee XR knee LT 2V Fir [facility] Start: 10-13-2023 XR Knee - left 2 Views [facility] Start: 07-12-2023 [facility] Patient Education Know your Meds Felter Non Diagnostic Block [facility] Work Phone: Patient referral [facility] Work Phone: Payers Date Payer Category Payer Self-pay 2012 Unknown [id number] 1965 Unknown [id number] 2.16.84 [id number] 1965 Unknown [id number] 2.16.84 [id number] 1965 Unknown [id number] 2.16.84 [id number] 1965 Unknown [id number] 2.16.84 [id number] 1965 Unknown [id number] 1961 Blue [employer] Blue Shield [id number] Unknown [place] BC/BS [id number] Unknown [id number] 2.16.8 [id number] Unknown [id number] 2.16.8 [id number] Social History Date Type Detail Facility Sex Assigned At [employer] Other Start: 1965 Sex Assigned At Female [facility] Goals Date Patient Goal Desired Activity /State Clinical Notes 2021 to 07-12-2023 Note Date & Type Note Facility 07-12-2023 Procedure note [facility] 05-09-2023 Evaluation note Authored May 09, 2023 9:1 6am We performed a 4/1cc Marcain e / Kenalog cortisone injection into the knee joint under sterile technique. Patient tolerated the injection well without adverse reaction. Patient can follow up as needed. Note scribed by ESEQUIEL Valle, reviewed and amended by myself Hudson Gu D.O. [facility] Work Phone: [phone]) 792-331606-14-2023 Evaluation note* Encounter Date Diagnosis Assessment Notes [...] tolerated the injection well without adverse reaction. [employer] Other 05-01-2023 Evaluation note* Encounter Date Diagnosis Assessment Notes Treatment Notes Treatment Clinical Notes June, Acute meniscal tear of left knee, initial encounter (ICD-10 - S83.207A) [employer] Other 10-29-2022 Evaluation note* Encounter Date Diagnosis [...] Nov, Other Contusion mater ial was printed [employer] Other 08-28-2022 Evaluation note* Encounter Date Diagnosis [...] COVID POSITIVE education handout discharge instructions. given. [employer] Other Evaluation noteNo assessment information available [facility] Work Phone: Evaluation note* Author Mare Ramirez [facility] Authored May 09, 2023 9:1 6am We performed a 4/1cc Marcain e / Kenalog cortisone injection into the knee joint under sterile technique. Patient tolerated the injection well without adverse reaction. Patient can follow up as needed. Note scribed by ESEQUIEL Valle, reviewed and amended by myself Hudson Gu D.O. [facility] Work Phone: Evaluation note* Diagnosis Onset Date Resolution Status Chronic pain acute Knee pain acute Osteoarthritis of left knee acute Chronic pain acute Contusion of left knee acute Knee pain acute Osteoarthritis of left knee acute [facility] Work Phone: History general Narrative - Reported* Type Description Date Medical History diabetes Surgical History c-sections - 2 Surgical History oophorectomy Surgical History hysterectomy [employer] Other [facility] general Narrative - Reported* Type Description Date Medical History diabetes Medical History high cholesterol Surgical History c-sections - 2 Surgical History oophorectomy Surgical History hysterectomy [employer] Other Chief Complaint and Reason for Visit [...] and content) DATE CREATED AUTHOR 06/27/2022 [facility] DATE CREATED AUTHOR AUTHOR'S ORGANIZ ATION 02/03/2023 [facility] [facility] DATE CREATED AUTHOR AUTHOR'S ORGANIZ ATION 10/26/2023 [facility] y[facility]ician Group FOR RECORDS PERTAINING TO PATIENTS [...] BE BASED ON THE PRIMARY CLINICAL RECORDS. [facility] [employer] [facility]. provides no warranty or guarantee of the accuracy or completeness of information in this document.
[2024-03-17 16:00] LABS: Basophils Percent Auto 0.2 % (0.2-2.0); Eosinophils Absolute Auto 0.1 10^3/uL (0.0-0.7); Eosinophils Percent Auto 1.5 % (0.9-7.0); Hemoglobin 14.5 g/dL (12.0-16.0); Immature Granulocytes Abs Auto 0.04 10^3/uL (0.00-0.03); Immature Granulocytes Pct Auto 0.5 % (0.0-0.5); Lymphocytes Absolute Auto 1.5 10^3/uL (1.2-3.8); Lymphocytes Percent Auto 16.5 % (20.5-60.0); Mean Corpuscular HGB Conc 33.7 g/dL (29.9-35.2); Mean Corpuscular Hemoglobin 29.5 pg (26.7-34.0); Mean Corpuscular Volume 87.4 fL (81.0-99.0); Mean Platelet Volume 11.3 fL (9.5-13.5); Monocytes Absolute Auto 0.8 10^3/uL (0.3-0.8); Monocytes Percent Auto 8.6 % (1.7-12.0); Neutrophils Absolute Auto 6.4 10^3/uL (1.4-6.5); Neutrophils Percent Auto 72.7 % (43.0-75.0); Platelet Count 196 10^3/uL (150-450); Red Blood Count 4.92 10^6/uL (4.20-5.40); Red Cell Distribution Width 11.9 % (11.0-15.0); White Blood Count 8.8 10^3/uL (4.0-11.0)
[2024-03-17] MEDS: NITROGLYCERIN 0.4 MG BOTTLE SL (16:14)
[2024-03-17] MEDS: ASPIRIN 81 MG TAB.CHEW 324 MG PO (16:14)
[2024-03-17 16:17] LABS: Prothrombin Time 10.6 sec (9.0-11.6)
[2024-03-17 16:27] LABS: Alanine Aminotransferase 36 U/L (14-59); Albumin Globulin Ratio 1.1; Albumin Level 3.9 g/dL (3.4-5.0); Alkaline Phosphatase 79 U/L (46-116); Aspartate Amino Transferase 22 U/L (15-37); BUN Creatinine Ratio 14.7; Bilirubin Total 0.4 mg/dL (0.2-1.0); Calcium 9.1 mg/dL (8.5-10.1); Carbon Dioxide 25.2 mmol/L (21.0-32.0); Chloride 97 mmol/L (98-107); Estimated GFR (African America >60 (>=60 mL/min/1.73m^2); Estimated GFR (Non-African Ame 51 (>=60 mL/min/1.73m^2); Globulin 3.5 g/dL; Glucose 482 mg/dL (74-106); Potassium 4.2 mmol/L (3.5-5.1); Sodium 134 mmol/L (136-145); Total Protein 7.4 g/dL (6.4-8.2); Troponin I High Sensitivity <4.0 pg/mL (4.0-51.3)
--- NOTE | 2024-03-17 16:42 | ED_ITS ---
HPI HPI - General Adult General Chief complaint: Chest Pain Stated complaint: Chest pain Time Seen by Provider: 03/17/24 15:47 Source: patient Mode of arrival: walk-in Limitations: no limitations History of Present Illness HPI narrative: The patient coming to the ER with 3 days history of chest pain associated with shortness of breath on exertion, the patient said that chest pain is mostly worse whenever she sat up, and it get better whenever she is laying down, the patient denies any fever or chills she mentioned that the pain is retrosternal No nausea vomiting and no fever or chills or coughing Patient had a history of stress test more than 5 years ago and it was negative Related Data Home Medications ?Medication ?Instructions ?Recorded ?Confirmed aripiprazole 5 mg tablet 5 mg PO DAILY 01/13/23 01/13/23 blood sugar diagnostic (OneTouch 01/13/23 01/13/23 Verio test strips) bupropion HCl 300 mg 24 hr tablet, 300 mg PO DAILY 01/13/23 01/13/23 extended release empagliflozin 25 mg tablet 25 mg PO DAILY 01/13/23 01/13/23 (Jardiance) flash glucose scanning reader 01/13/23 01/13/23 (FreeStyle Kirsten 2 [place]) flash glucose sensor (i2i LogicStyle 01/13/23 01/13/23 Kirsten 2 Sensor kit) hyoscyamine sulfate 0.125 mg 0.125 mg PO DAILY PRN dyspepsia 01/13/23 01/13/23 sublingual tablet metformin 500 mg tablet 500 mg PO DAILY 01/13/23 01/13/23 nabumetone 500 mg tablet 500 mg PO BID 01/13/23 01/13/23 pioglitazone 45 mg tablet 45 mg PO DAILY 01/13/23 01/13/23 sertraline 100 mg tablet 100 mg PO DAILY 01/13/23 01/13/23 simvastatin 20 mg tablet 20 mg PO DAILY 01/13/23 01/13/23 sitagliptin phosphate 100 mg 100 mg PO DAILY 01/13/23 01/13/23 tablet (Januvia) Previous Rx's ?Medication ?Instructions ?Recorded acetaminophen 300 mg-codeine 30 mg 1 tab PO Q6H PRN pain 5 days #20 05/12/23 tablet tabs Allergies Allergy/AdvReac Type Severity Reaction Status Date / Time cephalexin (From [facility]) Allergy Intermediate Verified 05/12/23 14:44 lisinopril Allergy Intermediate Verified 05/12/23 14:44 Opioid HPI Opioid Management Most Recent Opioid Data: Last Pain Scale 6 05/12/23 16:15 05/12/23 Last MAR Pain Assessment 03/17/24 16:55 Review of Systems ROS Status of ROS 10 or more systems reviewed and unremark able except as noted in history and below PFSH PFS Social History Little interest or pleasure in doing things: not at all Feeling down, depressed, or hopeless: not at all Exam Narrative Exam Narrative: Nurses notes and vital signs reviewed and patient is not hypoxic. General: Well-appearing and in no apparent distress. Skin: Warm, dry, no pallor noted. No rash. Head: Normocephalic, atraumatic. Neck: Supple, non-tender. Eye: Pupils are equal, round and EOMI. No scleral icterus. Ears, Nose, Mouth, and Throat: TM are clear, no nasal mucosal hypertrophy. Oral mucosa is moist, no posterior oropharynx erythema, uvula is mid-line Cardiovascular: Regular Rate and Rhythm without murmur, gallop or rub. Respiratory: No accessory muscle use or respiratory distress. Lungs are clear to auscultation, no wheezing, rales or rhonchi Chest Wall: no tenderness Back: No midline thoracic or lumbar vertebral tenderness. No CVA tenderness Musculoskeletal: normal ROM, no calf or popliteal tenderness, no lower extremity edema/swelling GI: Abdomen is soft, non-distended. Normal bowel sounds. No masses appreciated. No tenderness to palpation. No rebound, guarding, or rigidity noted. Neurological: A&O x4. No cranial nerve dysfunction observed. No truncal a taxia. Moves all extremities. Sensation intact. Psychiatric: Cooperative and interactive. Normal mood and affect. Constitutional Vital Signs, click to edit/add: Last Vital Signs Temp 97.7 F 03/17/24 15:39 Pulse 74 03/17/24 18:40 Resp 15 03/17/24 18:40 BP 179/87 H 03/17/24 18:31 Pulse Ox 100 03/17/24 18:40 O2 Del Method Room Air 03/17/24 15:39 Course Vital Signs Vital signs: Vital Signs Temperature 97.7 F 03/17/24 15:39 Pulse Rate 76 03/17/24 15:39 Respiratory Rate 18 03/17/24 15:39 Blood Pressure 220/108 H 03/17/24 15:39 Pulse Oximetry 99 03/17/24 15:39 Oxygen Delivery Method Room Air 03/17/24 15:39 Temperature 97.7 F 03/17/24 15:39 Pulse Rate 74 03/17/24 18:40 Respiratory Rate 15 03/17/24 18:40 Blood Pressure 179/87 H 03/17/24 18:31 Pulse Oximetry 100 03/17/24 18:40 Oxygen Delivery Method Room Air 03/17/24 15:39 Medical Decision Making MDM Narrative Medical decision making narrative: The patient EKG upon arrival showing sinus rhythm with a heart rate of [address] elevation or depression The patient pain is seem to be atypical as it is comes with movement and it has been going on for the last 3 days It was noted the patient blood pressure was elevated upon arrival and it was around 200 systolic she was provided with nitroglycerin after which blood pressure responded to 130 systolic but the pain continued The patient pain seem to be of atypical nature CT angio of the chest is pending to rule out any aortic pathology Patient care will be transferred to Dr. Hurst Lab Data Labs: Lab Results 03/17/24 03/17/24 Range/Units 15:46 17:55 WBC 8.8 (4.0-11.0) 10^3/uL RBC 4.92 (4.20-5.40) 10^6/uL Hgb 14.5 (12.0-16.0) g/dL Hct 43.0 (36.0-48.0) % MCV 87.4 (81.0-99.0) fL MCH 29.5 (26.7-34.0) pg MCHC 33.7 (29.9-35.2) g/dL RDW 11.9 (11.0-15.0) % Plt Count 196 (150-450) 10^3/uL MPV 11.3 (9.5-13.5) fL Neut % (Auto) 72.7 (43.0-75.0) % Lymph % (Auto) 16.5 L (20.5-60.0) % [place] % (Auto) 8.6 (1.7-12.0) % Eos % (Auto) 1.5 (0.9-7.0) % Baso % (Auto) 0.2 (0.2-2.0) % Neut # (Auto) 6.4 (1.4-6.5) 10^3/uL Lymph # (Auto) 1.5 (1.2-3.8) 10^3/uL [place] # (Auto) 0.8 (0.3-0.8) 10^3/uL Eos # (Auto) 0.1 (0.0-0.7) 10^3/uL Baso # (Auto) 0.0 (0.0-0.1) 10^3/uL Abs Immat Gran (auto) 0.04 H (0.00-0.03) 10^3/uL Imm/Tot Granulo (auto) 0.5 (0.0-0.5) % PT 10.6 (9.0-11.6) sec INR 1.00 Sodium 134 L (136-145) mmol/L Potassium 4.2 (3.5-5.1) mmol/L Chloride 97 L (98-107) mmol/L Carbon Dioxide 25.2 (21.0-32.0) mmol/L Anion Gap 16.0 BUN 16.0 (7.0-18.0) mg/dL Creatinine 1.09 H (0.55-1.02) mg/dL Est GFR ( Amer) >60 (>=60 mL/min/1.73m^2) Est GFR (Non-Af Amer) 51 L (>=60 mL/min/1.73m^2) BUN/Creatinine Ratio 14.7 Glucose 482 H (74-106) mg/dL Calcium 9.1 (8.5-10.1) mg/dL Total Bilirubin 0.4 (0.2-1.0) mg/dL AST 22 (15-37) U/L ALT 36 (14-59) U/L Alkaline Phosphatase 79 (46-116) U/L Troponin I High Sens <4.0 L 5.0 (4.0-51.3) pg/mL NT-Pro-B Natriuret Pep 18.0 (<=900.0) pg/mL Total Protein 7.4 (6.4-8.2) g/dL Albumin 3.9 (3.4-5.0) g/dL Globulin 3.5 g/dL Albumin/Globulin Ratio 1.1 Discharge Plan Discharge Patient Disposition: Still a Patient
--- NOTE | 2024-03-17 16:43 | CT_ITS ---
The [address] [address] Patient Name: RJ PINZON MRN: [id number] date: 1965 Sex: F Assigned Patient Location: ER Current Patient Location: .[facility] Accession/Order Number: [id number] Exam Date: 03/17/2024 17:12 Report Date: 03/17/2024 19:14 At the request of: AYALA CURRAN Procedure: CT angio chest EXAM: CT angio chest HISTORY: chest pain and HTN emergency aortic pathology ? COMPARISON: 10/06/2011 TECHNIQUE: CTA of the chest with intravenous contrast. Sagittal and coronal reconstructions and 3-D image processing were performed. Dose reduction techniques were achieved by using automated exposure control and/or adjustment of mA and/or kV according to patient size and/or use of iterative reconstruction technique. FINDINGS: The study is technically adequate for the diagnosis of pulmonary embolism, with good contrast bolus to the pulmonary arteries. TUBES AND IMPLANTS: None. CHEST WALL AND LOWER NECK: Unremarkable. BONES: No suspicious lesions. UPPER ABDOMEN: No acute finding MEDIASTINUM AND MUNA: Small hiatal hernia. AORTA: No aneurysm or dissection. Branch vessels are widely patent. PULMONARY ARTERIES: No embolism HEART: Mild cardiomegaly CORONARY ARTERIES: Mild coronary artery calcifications. LUNG AND AIRWAYS: A few less than 6 millimeter nodules are seen within the right lung. PLEURA: Unremarkable. CT/CT angio chest IMPRESSION: 1. No evidence for pulmonary embolism or an acute aortic syndrome. No aortic aneurysm. 2. A few less than 6 millimeter nodules are seen in the right lung, per Fleischner criteria optional twelve-month CT follow-up as clinically warranted. 3. Small hiatal hernia. Electronically authenticated by: MARISOL MENCHACA Date: 03/17/2024 19:14
[2024-03-17] MEDS: FAMOTIDINE/PF 20 MG/2 ML VIAL IV (16:55)
[2024-03-17] MEDS: MORPHINE SULFATE 4 MG/ML VIAL IV (16:55)
[2024-03-17] MEDS: CLONIDINE HCL 0.2 MG TABLET PO (19:54)
[2024-03-17] MEDS: METHYLPREDNISOLONE SOD SUCC PF 125 MG/2 ML VIAL IVP (19:54)
== END 2024-03-17 20:07 | disposition home or self-care (01) ==
PROVIDERS: Emergency Provider Emergency Medicine; PCP Family Medicine
DX: R07.89 Other chest pain (principal); R06.02 Shortness of breath
CPT/HCPCS: 36415; 71045; 71275; 80053; 83880; 84484; 85025; 85610; 93005; 96374; 96375; 99285; J2270; J2919; J3490; Q9967

== ENCOUNTER 2024-03-21 13:47 | Emergency (ER) | payer OTHER, SELFPAY ==
[2024-03-21] VITALS (18 sets, daily range): BP systolic 159–224; BP diastolic 92–114; PULSE 63–75; TEMP 36.8; O2SAT 97–100; BMI 37.9
--- NOTE | 2024-03-21 14:02 | XR_ITS ---
The [address] [address] Patient Name: RJ PINZON MRN: [id number] date: 1965 Sex: F Assigned Patient Location: ER Current Patient Location: ER Accession/Order Number: [id number] Exam Date: 03/21/2024 14:12 Report Date: 03/21/2024 14:33 At the request of: RUBEN FROST Procedure: XR chest 1V EXAMINATION: XR chest 1V HISTORY: Chest pain COMPARISON: XR chest 03/17/2024 FINDINGS: LUNGS: No significant pulmonary parenchymal abnormalities. VASCULATURE: No increased pulmonary vasculature. PLEURA: No pneumothorax, effusion, or pleural thickening. CARDIAC: No cardiomegaly or cardiac silhouette abnormality. MEDIASTINUM: No visible mass or adenopathy. BONES: No fracture or visible bone lesion. OTHER: Negative. XR/XR chest 1V IMPRESSION: 1. No acute cardiopulmonary process. Electronically authenticated by: NOHEMY MARCOS Date: 03/21/2024 14:33
--- NOTE | 2024-03-21 14:02 | ECG_ITS ---
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
--- NOTE | 2024-03-21 14:08 | ED.CHESTPAI1 ---
HPI - Chest Pain General Chief Complaint: Chest Pain Stated Complaint: CHEST PAINS SOB Time Seen by Provider: 03/21/24 13:48 Source: patient Mode of arrival: Wheelchair History of Present Illness HPI narrative: Patient is a 58-year-old female with a history of diabetes, hypertension who presents to the emergency department for a 6-day history of chest pain in the center of the chest radiating under the left breast/left upper quadrant. She states the pain goes through to her back. She was seen in this emergency department on 03/17/2024 where she had a full cardiac workup and CT angio of the chest which ruled out pulmonary embolism or aortic pathology. She states she was diagnosed with pleurisy but the pain is worse. She was placed on steroids and followed up with her doctor 2 days ago. She was given a new blood pressure medication and states she has been taking the metoprolol. She states her pain is worse with eating. She does still feel short of breath. No fevers or other upper respiratory symptoms. Risk Factors Coronary artery disease risk factors: diabetes, hyperlipidemia and hypertension Related Data Home Medications ?Medication ?Instructions ?Recorded ?Confirmed aripiprazole 5 mg tablet 5 mg PO DAILY 01/13/23 03/21/24 blood sugar diagnostic (OneTouch 01/13/23 01/13/23 Verio test strips) bupropion HCl 300 mg 24 hr tablet, 300 mg PO DAILY 01/13/23 03/21/24 extended release flash glucose scanning reader 01/13/23 01/13/23 (FreeStyle Kirsten 2 [place]) flash glucose sensor (FreeStyle 01/13/23 01/13/23 Kirsten 2 Sensor kit) nabumetone 500 mg tablet 500 mg PO BID 01/13/23 03/21/24 sertraline 100 mg tablet 100 mg PO DAILY 01/13/23 03/21/24 simvastatin 20 mg tablet 20 mg PO DAILY 01/13/23 03/21/24 insulin glargine 100 unit/mL (3 10 unit subcut DAILY 03/21/24 03/21/24 mL) subcutaneous pen (Basaglar KwikPen U-100 Insulin) insulin lispro 100 unit/mL 1 sliding scale dose subcut 03/21/24 03/21/24 subcutaneous pen (elog SoloStkimberly USEASDIRECTD U-100 Insulin lispro) omega-3 acid ethyl esters 1 gram 1 cap PO DAILY 03/21/24 03/21/24 capsule (Lovaza) tramadol 50 mg tablet mg 03/21/24 Previous Rx's ?Medication ?Instructions ?Recorded losartan 50 mg tablet 50 mg PO DAILY #30 tabs 03/17/24 prednisone 20 mg tablet 40 mg (2 x 20 mg) PO DAILY 3 days 03/17/24 #6 tabs ondansetron 4 mg disintegrating 4 mg PO Q6H PRN nausea and 03/21/24 tablet vomiting #12 tabs sucralfate 1 gram tablet (Carafate) 1 g PO Q6H PRN abdominal pain #12 03/21/24 tabs Allergies Allergy/AdvReac Type Severity Reaction Status Date / Time cephalexin (From Keflex) Allergy Intermediate Unknown Verified 03/21/24 13:55 lisinopril Allergy Intermediate Unknown Verified 03/21/24 13:55 [facility] Social History Little interest or pleasure in doing things: not at all Feeling down, depressed, or hopeless: not at all Exam Narrative Exam Narrative: Gen.: Awake, alert, in no distress, tearful Head: Normocephalic, atraumatic ENT: Moist mucous membranes Respiratory: No respiratory distress, lungs clear bilaterally Cardio: Regular rate and rhythm Gastrointestinal: Abdomen is soft, nondistended and tender to palpation in the epigastrium with no guarding or rebound Extremities: Moves extremities equally, no pedal edema Psych: Normal mood and affect Neuro: No focal neuro deficit Skin: Warm, dry, intact She Constitutional Vital Signs, click to edit/add: Last Vital Signs Temp 98.2 F 03/21/24 13:55 Pulse 67 03/21/24 15:30 Resp 10 L 03/21/24 15:30 BP 183/104 H 03/21/24 15:30 Pulse Ox 99 03/21/24 14:50 O2 Del Method Room Air 03/21/24 13:55 Course Vital Signs Vital signs: Vital Signs Pulse Oximetry 100 03/21/24 13:53 Temperature 98.2 F 03/21/24 13:55 Pulse Rate 67 03/21/24 15:30 Respiratory Rate 10 L 03/21/24 15:30 Blood Pressure 183/104 H 03/21/24 15:30 Pulse Oximetry 99 03/21/24 14:50 Oxygen Delivery Method Room Air 03/21/24 13:55 MDM - Chest Pain MDM Narrative Medical decision making narrative: Was noted to be hypertensive on arrival, after multiple attempts we were unable to establish IV access. She was given intramuscular Ativan, GI cocktail and sublingual Zofran with significant improvement of her symptoms. She is resting comfortably on reevaluation. Blood pressure is 167/91 on reevaluation. Patient had a CT angio of the chest 4 days ago, multiple troponins are negative. She has no EKG changes. Heart score is 3. Patient is discharged home to follow-up with Dr. Parry tomorrow, I discussed the case with him and we will leave the blood pressure medications in place as they are currently. Return to the ER if symptoms change or worsen. Carafate and Zofran given for home. SUPERVISED APC VISIT, PHYSICIAN ATTESTATION: Based on the medical record the care appears appropriate. ? Medical Records Data Attestation: I reviewed the patient's medical records. Lab Data Attestation: I reviewed the patient's lab results. Labs: Lab Results 03/21/24 03/21/24 Range/Units 14:10 14:29 WBC 12.6 H (4.0-11.0) 10^3/uL RBC 5.21 (4.20-5.40) 10^6/uL Hgb 15.5 (12.0-16.0) g/dL Hct 44.8 (36.0-48.0) % MCV 86.0 (81.0-99.0) fL MCH 29.8 (26.7-34.0) pg MCHC 34.6 (29.9-35.2) g/dL RDW 11.9 (11.0-15.0) % Plt Count 228 (150-450) 10^3/uL MPV 11.3 (9.5-13.5) fL Neut % (Auto) 76.1 H (43.0-75.0) % Lymph % (Auto) 14.9 L (20.5-60.0) % [place] % (Auto) 8.1 (1.7-12.0) % Eos % (Auto) 0.1 L (0.9-7.0) % Baso % (Auto) 0.2 (0.2-2.0) % Neut # (Auto) 9.6 H (1.4-6.5) 10^3/uL Lymph # (Auto) 1.9 (1.2-3.8) 10^3/uL [place] # (Auto) 1.0 H (0.3-0.8) 10^3/uL Eos # (Auto) 0.0 (0.0-0.7) 10^3/uL Baso # (Auto) 0.0 (0.0-0.1) 10^3/uL Abs Immat Gran (auto) 0.07 H (0.00-0.03) 10^3/uL Imm/Tot Granulo (auto) 0.6 H (0.0-0.5) % ESR 14 (<=30) mm/hr PT 11.1 (9.0-11.6) sec INR 1.05 VBG pH 7.427 (7.330-7.430) VBG pCO2 33.7 L (40.0-52.0) mmHg Sodium 136 (136-145) mmol/L Potassium 4.0 (3.5-5.1) mmol/L Chloride 99 (98-107) mmol/L Carbon Dioxide 22.5 (21.0-32.0) mmol/L Anion Gap 18.5 BUN 19.0 H (7.0-18.0) mg/dL Creatinine 0.95 (0.55-1.02) mg/dL Est GFR ( Amer) >60 (>=60 mL/min/1.73m^2) Est GFR (Non-Af Amer) >60 (>=60 mL/min/1.73m^2) BUN/Creatinine Ratio 20.0 Glucose 291 H (74-106) mg/dL Lactate 2.6 H* (0.4-2.0) mmol/L Calcium 8.8 (8.5-10.1) mg/dL Total Bilirubin 0.6 (0.2-1.0) mg/dL AST 26 (15-37) U/L ALT 32 (14-59) U/L Alkaline Phosphatase 74 (46-116) U/L Troponin I High Sens 7.3 (4.0-51.3) pg/mL C-Reactive Protein <0.50 (<=0.50) mg/dL NT-Pro-B Natriuret Pep 70.0 (<=900.0) pg/mL Total Protein 7.5 (6.4-8.2) g/dL Albumin 3.9 (3.4-5.0) g/dL Globulin 3.6 g/dL Albumin/Globulin Ratio 1.1 Lipase 40.0 (16.0-77.0) U/L Influenza Type A Ag Negative Influenza Type B Ag Negative SARS-CoV-2 Ag (CV2AG) Negative (NEGATIVE) Imaging Data Chest x-ray: Attestation: I have reviewed the pertinent imaging results. Radiologist's impression: ITS Impressions Chest X-Ray 03/21/24 14:02 IMPRESSION: 1. No acute cardiopulmonary process. Electronically authenticated by: NOHEMY MARCOS Date: 03/21/2024 14:33 ECG Data Attestation: I personally reviewed and interpreted this ECG as follows: (Normal sinus rhythm at a rate of 66, no acute ST elevation or ectopy. EKG reviewed by attending physician) Heart Score History: Slightly/Non-Suspicious ECG: Normal Age: >45-<65 years Risk Factors: >3 Risk Factors/ HX of CAD:2 Troponin: <Normal Limit Total Heart Score Recommendations & Risks:: 3 Discharge Plan Discharge Chief Complaint: Chest Pain Clinical Impression: HTN (hypertension), Chest pain Patient Disposition: Home, Self-Care Time of Disposition Decision: 16:15 Condition: Good Prescriptions / Home Meds: New sucralfate [Carafate] 1 gram tablet 1 g PO Q6H PRN (Reason: abdominal pain) Qty: 12 0RF ondansetron 4 mg tablet,disintegrating 4 mg PO Q6H PRN (Reason: nausea and vomiting) Qty: 12 0RF No Action (DME) OneTouch Verio test strips Strip MISCELLANEOUS aripiprazole 5 mg tablet 5 mg PO DAILY bupropion HCl 300 mg tablet extended release 24 hr 300 mg PO DAILY (DME) FreeStyle Kirsten 2 Sensor Kit MISCELLANEOUS (DME) FreeStyle Kirsten 2 [place] Misc MISCELLANEOUS nabumetone 500 mg tablet 500 mg PO BID sertraline 100 mg tablet 100 mg PO DAILY simvastatin 20 mg tablet 20 mg PO DAILY prednisone 20 mg tablet 40 mg PO DAILY 3 Days Qty: 6 0RF losartan 50 mg tablet 50 mg PO DAILY Qty: 30 0RF omega-3 acid ethyl esters [Lovaza] 1 gram capsule 1 cap PO DAILY tramadol 50 mg tablet insulin glargine [Basaglar KwikPen U-100 Insulin] 100 unit/mL (3 mL) insulin pen 10 unit subcut DAILY insulin lispro [Admelog SoloStar U-100 Insulin] 100 unit/mL insulin pen 1 sliding scale dose subcut USEASDIRECTD Print Language: Arabic Instructions: Chest Pain (ED), Hypertension (ED) Referrals: Florencio Parry MD [Primary Care Provider] - 03/22/24
--- OUTSIDE RECORDS SUMMARY | 2024-03-21 14:08 | XMS_ITS | CCD ---
Author Organization [facility] Care Team Providers Care Pillar Worker Name Role Phone Dorys Flannery Unavailable Liliya Fletcher Unavailable MD Jaja Parry Primary Care Provider [phone] HAKEEM Fletcher Attending Provider Hudson Gu Unavailable [...] Unavailable MD Jaja Parry Primary Care Provider [phone] MD Gregg Nassar Attending Provider MD Jaja Parry Primary Care Provider [phone] MD Gregg Nassar Attending Provider Gregg Nassar Attending Unavailable Jaja Parry Primary Care Unavailable Gregg Nassar Admitting Unavailable Jaja Parry Primary Care Unavailable Gregg Nassar Admitting Unavailable Gregg Nassar Attending Unavailable Allergies Allergy Classification Reported Allergen(s) Allergy Type Date of Onset Reaction(s) Facility Angiotensin Converting Enzyme (ROSS) Inhibitors (1 source) Lisinopril Drug Allergy [address] [place] [address] Cephalosporins (antibiotic) (1 source) Cephalexin Drug Allergy 4 Unknown Reaction [facility] (5 sources) Cephalexin; Translations: [Keflex] Drug Allergy 4 Unknown [facility] (1 source) Corticosteroids Drug allergy (disorder) 4 [facility] (1 source) DULoxetine Drug Allergy 4 [facility] (4 sources) Cephalexin; Translations: [cephalexin] Drug Allergy 4 Unknown Reaction [facility] (4 sources) Lisinopril; Translations: [lisinopril] Drug Allergy 4 Rash [facility] Medications Current Medications Medication Drug Class(es) Dates [...] dispense #42 (forty two) DX: S83.207A Vit C-S.Owhpjr-Vbyetq-Rprky Sd (Tart Thapa) 52-157-27-75-20 mg capsule (4 sources) Start: 07-12-2023 Vit C-S.Thapa -Celery-Grape Sd (Tart Thapa) 82-441-98-75-20 mg capsule Active CAP PO July 12, [...] LT 2Von 10-13-2023 XR knee LT 2V [facility] [address] [place] [address] XRay Report Signed Patient: Susanne Clark MR#: [id number] : 1965 Acct:[id number] Age/Sex: 58 / F ADM Date: 10/13/23 [place] [facility] [place] Type: [facility] Attending Dr: Gregg Nassar MD Copies [...] Foster Jr., D.O.10/13/2023 12:32 PM Dictation Location: [place] [address] Transcribed By: [facility] 10/13/23 1232 Dictated By: Freedom Foster Jr, DO 10/13/23 1231 Signed By: 10/13/23 1232 Normal [facility] MRI KNEE LT [...] by: NOHEMY MARCOS Date: 2022-02-22 08:51 Normal [facility] XR knee LT 4V*on 12-12-2021 XR knee LT 4V* [facility] Other XR knee LT 4V* [facility] Other XR knee LT 4V* [address] [place] [address] [facility] Other XR knee LT 4V* [place] [address] No rt [facility] Other XR knee LT 4V* XRay Report [facility] Other XR knee LT 4V* Signed [facility] Other XR knee LT 4V* Patient: Susanne Clark MR#: [id number] [facility] Other XR knee LT 4V* [id number] [facility] Other XR knee LT 4V* : 1965 Acct:[id number] [facility] Other XR knee LT 4V* Age/Sex: 56 / F ADM Date: 12/12/21 [facility] Other XR knee LT 4V* Loc: [facility] Room: Type: [facility] Other XR knee LT 4V* Attending Dr: Liliya PALACIO [facility] Other XR knee LT 4V* Copies to: HAKEEM Lim [facility] Other XR knee LT 4V* Ordering Provider: HAKEEM Lim [facility] Other XR knee LT 4V* Date of Service: 12/12/21 [facility] Other XR knee LT 4V* XR/XR knee LT 4V*: Acute pain of left knee [facility] Other XR knee LT 4V* XR knee LT 4V* 12/12/2021 12:41 PM [facility] Other XR knee LT 4V* SIGNS AND SYMPTOMS: Left knee pain after fall [facility] Other XR knee LT 4V* PROTOCOL: Frontal, lateral, and oblique radiographs of the left knee [facility] Other XR knee LT 4V* COMPARISON: None Nort [facility] Other XR knee LT 4V* FINDINGS: [facility] Other XR knee LT 4V* There is mild narrowing of the patellofemoral joint space with minimal narrowing of the medial [facility] Other XR knee LT 4V* weightbearing joint space. There is no evidence of fracture. No dislocation or subluxation. No [facility] Other XR knee LT 4V* joint effusion. No significant soft tissue swelling. [facility] Other XR knee LT 4V* XR/XR knee LT 4V* [facility] Other XR knee LT 4V* IMPRESSION: [facility] Other XR knee LT 4V* No acute bony injury. [facility] Other XR knee LT 4V* Mild degenerative changes are noted, as above. [facility] Other XR knee LT 4V* Impression dictated by: Bernardo Camacho M.D.12/12/2021 12:59 PM [facility] Other XR knee LT 4V* Dictation Location: [place] [address] [facility] Other XR knee LT 4V* Transcribed By: PWS 12/12/21 1259 [facility] Other XR knee LT 4V* Dictated By: Bernardo Camacho II, MD 12/12/21 1258 [facility] Other XR knee LT 4V* Signed By: [facility] Other XR knee LT 4V* 12/12/21 1253 [facility] Other SARS-CoV-2 (COVID-19) RNA NA A+probe Ql (Resp)on 2021 SARS-CoV-2 (COVID-19) RNA ALYSSA+probe Ql (Unsp spec) Positive [facility] Other T4 [facility] 10-06-2021 T4 [Mass/Vol] 7.2 ug/dL Normal 4.5-12.0 [facility] Comment on above: Performed By: #### T 4LC #### [facility] [address] [place] [address] [address] Chana Ceballos VIT D 25-OH [facility] 2021 Vitamin D, 25-Hydroxy 33.8 ng/mL Normal 30.0-100.0 [facility] Comment on above: Result Comment: Divya min D deficiency has been defined by the [place] of Medicine and an Endocrine Society practice guideline as a level of serum 25-OH vitamin D less than 20 ng/mL (1,2). The Endocrine Society went on to further define vitamin D insufficiency as a level between 21 and 29 ng/mL (2). 1. IOM ([place] of Medicine). 2010. Dietary reference intakes for calcium and D. [place]: The National Academies Press. 2. Sundar MF, Dinorah RIVERA, Kimberly GIBSON et al. Evaluation, treatment, and prevention of vitamin D deficiency: an Endocrine Society clinical practice guideline. JCEM. 2010; 96(7):1911-30. Performed By: #### V ITADLC #### [facility] [address] [place] [address] Dr. Chana Ceballos CBC AUTO DIFFon 10-05-2021 BASO # 0.0 103/ul Normal 0.0-0.1 [facility] Comment on above: Performed By: #### C BC #### [facility] [address] [place] [address] Dr. Chana Ceballos Basophils/100 WBC (Bld) 0.3 % Normal 0.2-2.0 [facility] Comment on above: Performed By: #### C BC #### [facility] [address] [place] [address] Dr. Chana Ceballos EO # 0.2 103/ul Normal 0.0-0.7 [facility] Comment on above: Performed By: #### C BC #### [facility] [address] [place] [address] Dr. Chana Ceballos Eosinophils/100 WBC (Bld) 2.1 % Normal 0.9-7.0 [facility] Comment on above: Performed By: #### C BC #### [facility] [address] [place] [address] Dr. Chana Ceballos Erythrocyte distribution width (RBC) [Ratio] 12.3 % Normal 11.0-15.0 [facility] Comment on above: Performed By: #### C BC #### [facility] [address] [place] [address] Dr. Chana Ceballos Hematocrit (Bld) [Volume fraction] 41.7 % Normal 36.0-48.0 [facility] Comment on above: Performed By: #### C BC #### [facility] [address] [place] [address] Dr. Chana Ceballos Hemoglobin (Bld) [Mass/Vol] 13.6 g/dL Normal 12.0-16.0 [facility] Comment on above: Performed By: #### C BC #### [facility] [address] [place] [address] [address] Chana Ceballos IG # 0.04 10e3/ul Critically high 0.00-0.03 [facility] Comment on above: Performed By: #### C BC #### [facility] [address] [place] [address] [address] Chana Ceballos IG % 0.6 % Critically high 0.0-0.5 [facility] Comment on above: Performed By: #### C BC #### [facility] [address] [place] [address] Dr. Chana Ceballos LYMPH # 1.4 103/ul Normal 1.2-3.8 [facility] Comment on above: Performed By: #### C BC #### [facility] [address] [place] [address] Dr. Chana Ceballos Lymphocytes/100 WBC (Bld) 19.8 % Critically low 20.5-60.0 [facility] Comment on above: Performed By: #### C BC #### [facility] [address] [place] [address] Dr. Chana Ceballos MANUAL DIFF REQ NO Normal [facility] Comment on above: Performed By: #### C BC #### [facility] [address] [place] [address] Dr. Chana Ceballos MCH (RBC) [Entitic mass] 30.3 pg Normal 26.7-34.0 [facility] Comment on above: Performed By: #### C BC #### [facility] [address] [place] [address] Dr. Chana Ceballos MCHC (RBC) [Mass/Vol] 32.6 g/dL Normal 29.9-35.2 [facility] Comment on above: Performed By: #### C BC #### [facility] [address] [place] [address] Dr. Chana Ceballos MCV (RBC) [Entitic vol] 92.9 fL Normal 81.0-99.0 [facility] Comment on above: Performed By: #### C BC #### [facility] [address] [place] [address] Dr. Chana Ceballos MONO # 0.7 103/ul Normal 0.3-0.8 [facility] Comment on above: Performed By: #### C BC #### [facility] [address] [place] [address] Dr. Chana Ceballos Monocytes/100 WBC (Bld) 10.2 % Normal 1.7-12.0 [facility] Comment on above: Performed By: #### C BC #### [facility] [address] [place] [address] Dr. Chana Ceballos NEUT # 4.7 103/ul Normal 1.4-6.5 [facility] Comment on above: Performed By: #### C BC #### [facility] [address] [place] [address] Dr. Chana Ceballos Neutrophils/100 WBC (Bld) 67.0 % Normal 43.0-75.0 [facility] Comment on above: Performed By: #### C BC #### [facility] [address] [place] [address] Dr. Chana Ceballos Platelet mean volume (Bld) [Entitic vol] 11.0 fL Normal 9.5-13.5 [facility] Comment on above: Performed By: #### C BC #### [facility] [address] [place] [address] Dr. Chana Ceballos PLT 212 103/ul Normal 150-450 [facility] Comment on above: Performed By: #### C BC #### [facility] [address] [place] [address] Dr. Chana Ceballos WBC 7.1 103/ul Normal 4.0-11.0 [facility] Comment on above: Performed By: #### C BC #### [facility] [address] [place] [address] Dr. Chana Ceballos FREE T3on 10-05-2021 FREE T3 2.32 pg/mlL Normal 2.18-3.98 [facility] Comment on above: Performed By: #### T SH, CMP, LIPID, FT3 #### [facility] [address] [place], [place] [address] Dr. Chana Ceballos GLYCOHEMOGLOBIN A1Con 2021 ADA RECOMMENDATION SEE BELOW Normal [facility] Comment on above: Result Comment: ADA RECOMMENDED LIMIT 4.0 - 6.0 ADA THERAPEUTIC TARGET < 7.0 ACTION SUGGESTED > 7.0 Performed By: #### A 1C #### [facility] [address] [place] [address] Dr. Chana Ceballos Glucose [Mass/Vol] 169 mg/dL Normal [facility] Comment on above: Performed By: #### A 1C #### [facility] [address] [place] [address] Dr. Chana Ceballos HbA1c (Bld) [Mass fraction] 7.5 % Critically high 4.5-6.2 [facility] Comment on above: Performed By: #### A 1C #### [facility] [address] [place] [address] Dr. Chana Ceballos LIPID PROFILEon 10-05-2021 CHOL-HDL RATIO NORM SEE BELOW Normal [facility] Comment on above: Result Comment: 3.3 - 4.4 LOW RISK 4.4 - 7.1 AVERAGE RISK 7.1 - 11.0 MODERATE RISK >11.0 HIGH RISK Performed By: #### T SH, CMP, LIPID, FT3 #### [facility] [address] [place] [address] Dr. Chana Ceballos Cholesterol [Mass/Vol] 217 mg/dL Critically high <=200 [facility] Comment on above: Performed By: #### T SH, CMP, LIPID, FT3 #### [facility] [address] [place] [address] Dr. Chana Ceballos Cholesterol in HDL [Mass/Vol] 38 mg/dL Critically low 40-60 [facility] Comment on above: Performed By: #### T SH, CMP, LIPID, FT3 #### [facility] [address] [place] [address] Dr. Chana Ceballos Cholesterol in LDL [Mass/Vol] 137.4 mg/dL Normal [facility] Comment on above: Performed By: #### T SH, CMP, LIPID, FT3 #### [facility] [address] [place] [address] [address] Chana Ceballos Cholesterol.total/Ch olesterol in HDL [Mass ratio] 5.7 {ratio} Normal [facility] Comment on above: Performed By: #### T SH, CMP, LIPID, FT3 #### [facility] [address] [place] [address] [address] Chana Ceballos HDL NORMAL > or = 60 mg/dl - LOW CARDIOVASCULAR RISK <40 mg/dl - HIGH CARDIOVASCULAR RISK Normal [facility] Comment on above: Performed By: #### T SH, CMP, LIPID, FT3 #### [facility] [address] [place] [address] [address] Chana Ceballos LDL CALC NORMAL SEE BELOW Normal [facility] Comment on above: Result Comment: <100 mg/dl OPTIMAL 100 - 129 mg/dl NEAR OR ABOVE OPTIMAL 130 - 159 mg/dl BORDERLINE HIGH 160 - 189 mg/dl HIGH >190 mg/dl VERY HIGH Performed By: #### T SH, CMP, LIPID, FT3 #### [facility] [address] [place] [address] [address] Chana Ceballos Triglyceride [Mass/Vol] 208 mg/dL Critically high <=150 [facility] Comment on above: Performed By: #### T SH, CMP, LIPID, FT3 #### [facility] [address] [place] [address] [address] Chana Ceballos VLDL CALC 41.6 mg/dL Normal [facility] Comment on above: Performed By: #### T SH, CMP, LIPID, FT3 #### [facility] [address] [place] [address] [address] Chana Ceballos PROF 14(COMP METB)on 022 Albumin [Mass/Vol] 4.2 g/dL Normal 3.4-5.0 [facility] Comment on above: Performed By: #### T SH, CMP, LIPID, FT3 #### [facility] [address] [place] [address] [address] Chana Ceballos Albumin/Globulin [Mass ratio] 1.2 {ratio} Normal [facility] Comment on above: Performed By: #### T SH, CMP, LIPID, FT3 #### [facility] [address] [place] [address] Dr. Chana Ceballos ALP [Catalytic activity/Vol] 61 U/L Normal 46-116 [facility] Comment on above: Performed By: #### T SH, CMP, LIPID, FT3 #### [facility] [address] [place] [address] Dr. Chana Ceballos ALT [Catalytic activity/Vol] 29 U/L Normal 14-59 [facility] Comment on above: Performed By: #### T SH, CMP, LIPID, FT3 #### [facility] [address] [place] [address] Dr. Chana Ceballos Anion gap [Moles/Vol] 14.3 mmol/L Normal [facility] Comment on above: Performed By: #### T SH, CMP, LIPID, FT3 #### [facility] [address] [place] [address] Dr. Chana Ceballos AST [Catalytic activity/Vol] 17 U/L Normal 15-37 [facility] Comment on above: Performed By: #### T SH, CMP, LIPID, FT3 #### [facility] [address] [place] [address] Dr. Chana Ceballos Bilirubin [Mass/Vol] 0.2 mg/dL Normal 0.2-1.0 [facility] Comment on above: Performed By: #### T SH, CMP, LIPID, FT3 #### [facility] [address] [place] [address] Dr. Chana Ceballos Calcium [Mass/Vol] 9.0 mg/dL Normal 8.5-10.1 [facility] Comment on above: Performed By: #### T SH, CMP, LIPID, FT3 #### [facility] [address] [place] [address] Dr. Chana Ceballos Chloride [Moles/Vol] 103 mmol/L Normal 98-107 [facility] Comment on above: Performed By: #### T SH, CMP, LIPID, FT3 #### [facility] [address] [place] [address] Dr. Chana Ceballos CO2 [Moles/Vol] 25.1 mmol/L Normal 21.0-32.0 [facility] Comment on above: Performed By: #### T SH, CMP, LIPID, FT3 #### [facility] [address] [address] [address] Chana Ceballos Creatinine [Mass/Vol] 0.93 mg/dL Normal 0.55-1.02 [facility] Comment on above: Performed By: #### T SH, CMP, LIPID, FT3 #### [facility] [address] [place] [address] [address] Chnaa Ceballos EGFR-AF TANZANIAN >60 Normal >=60 [facility] Comment on above: Performed By: #### T SH, CMP, LIPID, FT3 #### [facility] [address] [address] [address] Chana Ceballos EGFR-NON AF TANZANIAN >60 Normal >=60 [facility] Comment on above: Performed By: #### T SH, CMP, LIPID, FT3 #### [facility] [address] [place] [address] [address] Chana Ceballos Globulin (S) [Mass/Vol] 3.4 g/dL Normal [facility] Comment on above: Performed By: #### T SH, CMP, LIPID, FT3 #### [facility] [address] [address] [address] Chana Ceballos Glucose [Mass/Vol] 198 mg/dL Critically high 74-106 [facility] Comment on above: Performed By: #### T SH, CMP, LIPID, FT3 #### [facility] [address] [address] [address] Chana Ceballos Potassium [Moles/Vol] 4.4 mmol/L Normal 3.5-5.1 [facility] Comment on above: Performed By: #### T SH, CMP, LIPID, FT3 #### [facility] [address] [address] [address] Chana Ceballos Protein [Mass/Vol] 7.6 g/dL Normal 6.4-8.2 [facility] Comment on above: Performed By: #### T SH, CMP, LIPID, FT3 #### [facility] [address] [address] [address] Chana Ceballos Sodium [Moles/Vol] 138 mmol/L Normal 136-145 [facility] Comment on above: Performed By: #### T SH, CMP, LIPID, FT3 #### [facility] [address] [place] [address] Dr. Chana Ceballos Urea nitrogen [Mass/Vol] 18.0 mg/dL Normal 7.0-18.0 [facility] Comment on above: Performed By: #### T SH, CMP, LIPID, FT3 #### [facility] [address] [address] [address] Chana Ceballos Urea nitrogen/Creatinine [Mass ratio] 19.4 mg/mg Normal [facility] Comment on above: Performed By: #### T SH, CMP, LIPID, FT3 #### [facility] [address] [address] [address] Chana Ceballos TSHon 10-05-2021 TSH 2.219 uIU/mL Normal 0.358-3.740 [facility] Comment on above: Performed By: #### T SH, CMP, LIPID, FT3 #### [facility] [address] [place] [address] Dr. Chana Ceballos Vital Signs Date Time Vital Sign Value Performing Clinician Facility 07-12-2023 11:25-0400 Diastolic blood pressure 88 mm[Hg] MD Jaja Parry Work Phone: [facility] 07-12-2023 11:25-0400 Heart rate 82 /min MD Jaja Parry Work Phone: [facility] 07-12-2023 11:25-0400 Respiratory rate 16 /min MD Jaja Parry Work Phone: [facility] 07-12-2023 11:25-0400 SaO2% (BldA) [Mass fraction] 99 % MD Jaja Parry Work Phone: [facility] 07-12-2023 11:25-0400 Systolic blood pressure 138 mm[Hg] MD Jaja Parry Work Phone: [facility] 07-12-2023 10:51-0400 Inhaled oxygen flow rate 3 L/min MD Jaja Parry Work Phone: [facility] 07-12-2023 09:56-0400 Body height 167.64 cm MD Jaja Parry Work Phone: [facility] 07-12-2023 09:56-0400 Body weight 108.86 kg MD Jaja Parry Work Phone: [facility] 06-17-2023 08:47-0400 Body height 167.64 cm [facility] 06-17-2023 08:47-0400 Body mass index (BMI) [Ratio] 38.4 kg/m2 [facility] 06-17-2023 08:47-0400 Body weight 108 kg [facility] 05-09-2023 08:58-0400 Body height 167.64 cm [facility] 05-09-2023 08:58-0400 Body mass index (BMI) [Ratio] 38.7 kg/m2 [facility] 05-09-2023 08:58-0400 Body weight 108.94 kg [facility] 07-28-2022 08:15-0400 Body height 167.64 cm Hudson Gu Other [facility] [employer] Other 07-28-2022 08:15-0400 Body mass index (BMI) [Ratio] 38.73 kg/m2 Hudson Gu Other [facility] [employer] Other 07-28-2022 08:15-0400 Body weight 108.86 kg Hudson Gu Other [facility] Other 12-12-2021 13:05-0400 Body height 167.64 cm Liliya Fletcher Other [facility] Other 12-12-2021 13:05-0400 Body mass index (BMI) [Ratio] 35.51 kg/m2 Liliya Fletcher Other [facility] Other 12-12-2021 13:05-0400 Body temperature 97.9 [degF] Liliya Fletcher Other [facility] Other 12-12-2021 13:05-0400 Body weight 99.79 kg Liliya Fletcher Other [facility] Other 12-12-2021 13:05-0400 Diastolic blood pressure 74 mm[Hg] Liliya Fletcher Other [facility] Other 12-12-2021 13:05-0400 Respiratory rate 18 /min Liliya Fletcher Other [facility] Other 12-12-2021 13:05-0400 SaO2% (BldA) [Mass fraction] 99 % Liliya Fletcher Other [facility] Other 12-12-2021 13:05-0400 Systolic blood pressure 138 mm[Hg] Liliya Fletcher Other [facility] Other 2021 12:30-0400 Body height 167.64 cm Dorys Pughault Other [facility] Other 2021 12:30-0400 Body mass index (BMI) [Ratio] 36.31 kg/m2 Dorys Prudencio Other [facility] Other 2021 12:30-0400 Body temperature 97 [degF] Dorys Prudencio Other [facility] Other 2021 12:30-0400 Body weight 102.06 kg Dorys Flannery Other [facility] [employer] Other Encounters Encounter Date Encounter Type Care Provider Facility Start: 10-13-2023 End: 10-13-2023 ambulatory MD Jaja Parry Work Phone: [facility] Work Phone: Start: 10-13-2023 End: 10-13-2023 Patient encounter procedure MD Jaja Parry Work Phone: [facility] Work Phone: Start: 08-01-2023 End: 08-01-2023 ambulatory MD Jaja Parry Work Phone: [facility] Work Phone: Start: 08-01-2023 End: 08-01-2023 Patient encounter procedure MD Jaja Parry Work Phone: [facility] Work Phone: Start: 07-12-2023 Non-patient / Non-visit MD Linnea Parry Work Phone: [facility] Work Phone: Start: 07-12-2023 End: 07-12-2023 Admission to same day surgery center MD Jaja Parry Work Phone: [facility] Work Phone: Start: 07-12-2023 End: 07-12-2023 ambulatory MD Jaja Parry Work Phone: [facility] Work Phone: Start: 06-30-2023 End: 06-30-2023 Patient encounter procedure MD Jaja Parry Work Phone: [facility] Work Phone: Start: 06-17-2023 End: 06-17-2023 ambulatory [facility] Work Phone: Start: 06-17-2023 End: 06-17-2023 Patient encounter procedure [facility] Work Phone: Start: 05-09-2023 End: 05-09-2023 ambulatory [facility] Work Phone: Start: 05-09-2023 End: 05-09-2023 Patient encounter procedure [facility] Work Phone: Start: 02-02-2023 End: 02-02-2023 ambulatory VALORIE JOSEPHO Not Available Start: 07-28-2022 End: 07-28-2022 ambulatory Hudson Gu Other [facility] Other Start: 07-28-2022 Office outpatient vi sit 25 minutes Hudson Gu [facility] Start: 06-23-2022 End: 06-24-[address] JAJA PARRY . Facility:[facility] Start: 06-14-2022 End: 06-14-2022 ambulatory Hudson Gu Other [facility] Other Start: 06-14-2022 Telephone encounter Hudson Gu [facility] Start: 03-09-2022 End: 04-08-2022 ambulatory HUDSON GU Facility:[facility] Start: 02-22-2022 End: 02-23-2022 ambulatory LILIYA HUTTON Facility:[facility] Start: 12-12-2021 Office outpatient vi sit 15 minutes Liliya Fletcher [facility] Start: 12-12-2021 End: 12-12-2021 ambulatory MD Jaja Parry Work Phone: [facility] Other Start: 12-12-2021 End: 12-12-2021 Patient encounter procedure MD Jaja Parry Work Phone: [facility] [facility] Start: 2021 End: 2021 ambulatory Dorys Pughault Other [facility] [employer] Other Start: 2021 Office outpatient ne w 20 minutes Dorys Flannery [facility] Start: 10-07-2021 Encounter for genera l adult medical examination without abnormal findings DR JAJA PARRY . [facility] Start: 10-05-2021 End: 10-06-[address] [...] left knee XR knee LT 2V [facility] Start: 10-13-2023 XR Knee - left 2 Views [facility] Start: 07-12-2023 [facility] Patient Education Know your Meds Felter Non Diagnostic Block [facility] Work Phone: Patient referral [facility] Work Phone: Payers Date Payer Category Payer Self-pay 2012 Unknown [id number] 1965 Unknown [id number] 2.16.84 [id number] 1965 Unknown [id number] 2.16.84 [id number] 1965 Unknown [id number] 2.16.84 [id number] 1965 Unknown [id number] 2.16.84 [id number] 1965 Unknown [id number] 1961 Blue Cross Blue Shield [id number] Unknown [place] BC/BS [id number] Unknown [id number] 2.16.8 [id number] Unknown [id number] 2.16.8 [id number] Social History Date Type Detail Facility Sex Assigned At [facility] Other Start: 1965 Sex Assigned At Female [facility] Goals Date Patient Goal Desired Activity /State Clinical Notes 2021 to 07-12-2023 Note Date & Type Note Facility 07-12-2023 Procedure note [facility] 05-09-2023 Evaluation note Authored May 09, 2023 9:1 6am We performed a 4/1cc Marcain e / Kenalog cortisone injection into the knee joint under sterile technique. Patient tolerated the injection well without adverse reaction. Patient can follow up as needed. Note scribed by ESEQUIEL Valle, reviewed and amended by myself Hudson Gu D.O. [facility] Work Phone: [phone] 638-719606-14-2023 Evaluation note* Encounter Date Diagnosis Assessment Notes [...] tolerated the injection well without adverse reaction. [facility] 05-01-2023 Evaluation note* Encounter Date Diagnosis Assessment Notes Treatment Notes Treatment Clinical Notes June, Acute meniscal tear of left knee, initial encounter (ICD-10 - S83.207A) [facility] 10-29-2022 Evaluation note* Encounter Date Diagnosis [...] Nov, Other Contusion mater ial was printed [facility] 08-28-2022 Evaluation note* Encounter Date Diagnosis [...] COVID POSITIVE education handout discharge instructions. given. [facility] Evaluation noteNo assessment information available [facility] Work Phone: Evaluation note* Author Mare Ramirez [facility] Authored May 09, 2023 9:1 6am We performed a 4/1cc Marcain e / Kenalog cortisone injection into the knee joint under sterile technique. Patient tolerated the injection well without adverse reaction. Patient can follow up as needed. Note scribed by ESEQUIEL Valle, reviewed and amended by myself Hudson Gu D.O. [facility] Work Phone: Evaluation note* Diagnosis Onset Date Resolution Status Chronic pain acute Knee pain acute Osteoarthritis of left knee acute Chronic pain acute Contusion of left knee acute Knee pain acute Osteoarthritis of left knee acute [facility] Work Phone: History general Narrative - Reported* Type Description Date Medical History diabetes Surgical History c-sections - 2 Surgical History oophorectomy Surgical History hysterectomy [facility] general Narrative - Reported* Type Description Date Medical History diabetes Medical History high cholesterol Surgical History c-sections - 2 Surgical History oophorectomy Surgical History hysterectomy [facility] Chief Complaint and Reason for Visit [...] and content) DATE CREATED AUTHOR 06/27/2022 [facility] DATE CREATED AUTHOR AUTHOR'S ORGANIZ ATION 02/03/[address] [facility] dical [facility] DATE CREATED AUTHOR AUTHOR'S ORGANIZ ATION 10/26/2023 [facility] FOR RECORDS PERTAINING TO [...] BE BASED ON THE PRIMARY CLINICAL RECORDS. [facility] [facility]. provides no warranty or guarantee of the accuracy or completeness of information in this document.
[2024-03-21 14:37] LABS: PCO2 VBG 33.7 mmHg (40.0-52.0); pH VBG 7.427 (7.330-7.430)
[2024-03-21 14:39] LABS: Basophils Percent Auto 0.2 % (0.2-2.0); Eosinophils Percent Auto 0.1 % (0.9-7.0); Hematocrit 44.8 % (36.0-48.0); Hemoglobin 15.5 g/dL (12.0-16.0); Immature Granulocytes Abs Auto 0.07 10^3/uL (0.00-0.03); Immature Granulocytes Pct Auto 0.6 % (0.0-0.5); Lymphocytes Absolute Auto 1.9 10^3/uL (1.2-3.8); Lymphocytes Percent Auto 14.9 % (20.5-60.0); Mean Corpuscular HGB Conc 34.6 g/dL (29.9-35.2); Mean Corpuscular Hemoglobin 29.8 pg (26.7-34.0); Mean Platelet Volume 11.3 fL (9.5-13.5); Monocytes Percent Auto 8.1 % (1.7-12.0); Neutrophils Absolute Auto 9.6 10^3/uL (1.4-6.5); Neutrophils Percent Auto 76.1 % (43.0-75.0); Platelet Count 228 10^3/uL (150-450); Red Blood Count 5.21 10^6/uL (4.20-5.40); Red Cell Distribution Width 11.9 % (11.0-15.0); White Blood Count 12.6 10^3/uL (4.0-11.0)
[2024-03-21 14:48] LABS: Erythrocyte Sedimentation Rate 14 mm/hr (<=30)
[2024-03-21 14:48] LABS: Influenza Virus A Antigen Negative; Influenza Virus B Antigen Negative; Internal Control Within Normal Limits; SARS-CoV-2 Ag NEGATIVE (NEGATIVE)
[2024-03-21] MEDS: 0.9 % SODIUM CHLORIDE 1,000 ML 999 ML IV (14:48)
[2024-03-21 14:49] LABS: INR 1.05; Prothrombin Time 11.1 sec (9.0-11.6)
[2024-03-21] MEDS: lidocaine HCL 15 ML, MAG HYDROX/ALUMINUM HYD/SIMETH 30 ML, HYOSCYAMINE SULFATE 0.25 MG PO (14:51)
[2024-03-21 14:58] LABS: Lactate/Lactic Acid 2.6 mmol/L (0.4-2.0)
[2024-03-21 15:01] LABS: Alanine Aminotransferase 32 U/L (14-59); Albumin Globulin Ratio 1.1; Albumin Level 3.9 g/dL (3.4-5.0); Alkaline Phosphatase 74 U/L (46-116); Anion Gap 18.5; Aspartate Amino Transferase 26 U/L (15-37); Bilirubin Total 0.6 mg/dL (0.2-1.0); C Reactive Protein <0.50 mg/dL (<=0.50); Calcium 8.8 mg/dL (8.5-10.1); Carbon Dioxide 22.5 mmol/L (21.0-32.0); Chloride 99 mmol/L (98-107); Estimated GFR (African America >60 (>=60 mL/min/1.73m^2); Estimated GFR (Non-African Ame >60 (>=60 mL/min/1.73m^2); Globulin 3.6 g/dL; Glucose 291 mg/dL (74-106); Sodium 136 mmol/L (136-145); Total Protein 7.5 g/dL (6.4-8.2); Troponin I High Sensitivity 7.3 pg/mL (4.0-51.3)
[2024-03-21] MEDS: LORAZEPAM 2 MG/ML VIAL 1 MG IM (15:14)
[2024-03-21] MEDS: ONDANSETRON 4 MG RAPDIS TABLET SL (15:18)
== END 2024-03-21 16:24 | disposition home or self-care (01) ==
PROVIDERS: Physician Assistant; Emergency Provider Emergency Medicine; PCP Family Medicine
DX: R07.9 Chest pain, unspecified (principal); I10 Essential (primary) hypertension; E11.9 Type 2 diabetes mellitus without complications; R06.02 Shortness of breath; Z79.4 Long term (current) use of insulin
CPT/HCPCS: 36415; 71045; 80053; 82800; 83605; 83690; 83880; 84484; 85025; 85610; 85652; 86140; 87804; 87811; 93005; 96372; 99285; J2060; Q0162

== ENCOUNTER 2024-03-22 14:40 | Observation (INO) | payer OTHER, SELFPAY ==
[2024-03-22] VITALS (7 sets, daily range): BP systolic 155–170; BP diastolic 67–87; PULSE 62–77; TEMP 36.6–36.8; O2SAT 96–99; BMI 37.1; BMI 37.7
--- NOTE | 2024-03-22 14:46 | CT_ITS ---
The [address] [address] Patient Name: RJ PINZON MRN: [id number] date: 1965 Sex: F Assigned Patient Location: ER Current Patient Location: ER Accession/Order Number: [id number] Exam Date: 03/22/2024 15:35 Report Date: 03/22/2024 16:10 At the request of: GT MIRANDA Procedure: CT abdomen pelvis w con EXAMINATION: CT abdomen pelvis w con HISTORY: abd pain COMPARISON: No relevant comparison available. TECHNIQUE: CT images were created with IV contrast. Axial, Coronal, and Sagittal images. Dose reduction techniques were achieved by using automated exposure control and/or adjustment of mA and/or kV according to patient size and/or use of iterative reconstruction technique. FINDINGS: LUNG BASES: No visible pulmonary or pleural disease. LIVER: Diffuse hypoattenuation consistent with hepatic steatosis BILIARY: No visible dilatation or calcification. PANCREAS: No lesion, fluid collection, ductal dilatation, or atrophy. SPLEEN: No enlargement or focal lesion. ADRENALS: No mass or enlargement. KIDNEYS: No mass, obstruction, or calcification. BOWEL/MESENTERY: No visible mass, obstruction, or bowel wall thickening. AORTA/VASCULAR: No aortic aneurysm. Mild calcific atherosclerosis RETROPERITONEUM: No mass or adenopathy. LYMPH NODES: No adenopathy. URINARY BLADDER: No visible focal wall thickening, lesion, or calculus. PELVIC ORGANS: Hysterectomy ABDOMINAL WALL: No mass or hernia. BONES: No bony lesion or fracture. OTHER: Negative. CT/CT abdomen pelvis w con IMPRESSION: No acute intraperitoneal abnormality. Electronically authenticated by: MONSE DAWSON Date: 03/22/2024 16:10
--- OUTSIDE RECORDS SUMMARY | 2024-03-22 14:46 | XMS_ITS | CCD ---
Author Organization [facility] Care Team Providers Care Scrub Technician Name Role Phone Dorys Flannery Unavailable Liliya Fletcher Unavailable MD Jaja Parry Primary Care Provider [phone] HAKEEM Fletcher Attending Provider Hudson Gu Unavailable [...] Unavailable MD Jaja Parry Primary Care Provider [phone] MD Gregg Nassar Attending Provider [phone] MD Jaja Parry Primary Care Provider [phone] MD Gregg Nassar Attending Provider Gregg Nassar Attending Unavailable Jaja Parry Primary Care Unavailable Gregg Nassar Admitting Unavailable Jaja Parry Primary Care Unavailable Gregg Nassar Admitting Unavailable Gregg Nassar Attending Unavailable Allergies Allergy Classification Reported Allergen(s) Allergy Type Date of Onset Reaction(s) Facility Angiotensin Converting Enzyme (ROSS) Inhibitors (1 source) Lisinopril Drug Allergy [address] [place] [address] Cephalosporins (antibiotic) (1 source) Cephalexin Drug Allergy 4 Unknown Reaction [facility] (5 sources) Cephalexin; Translations: [Keflex] Drug Allergy 4 Unknown [facility] (1 source) Corticosteroids Drug allergy (disorder) 4 [facility] (1 source) DULoxetine Drug Allergy 4 [facility] (4 sources) Cephalexin; Translations: [cephalexin] Drug Allergy 4 Unknown Reaction [facility] (4 sources) Lisinopril; Translations: [lisinopril] Drug Allergy 4 Rash [facility] Medications Current Medications Medication Drug Class(es) [...] dispense #42 (forty two) DX: S83.207A Vit C-S.Xwykec-Oftagg-Tdmko Sd (Tart Thapa) 01-030-46-75-20 mg capsule (4 sources) Start: 07-12-2023 Vit C-S.Thapa -Celery-Grape Sd (Tart Thapa) 24-092-44-75-20 mg capsule Active CAP PO July 12, [...] LT 2Von 10-13-2023 XR knee LT 2V [facility] [address] [place] [address] XRay Report Signed Patient: Susanne Clark MR#: [id number] : 1965 Acct:[id number] Age/Sex: 58 / F ADM Date: 10/13/23 Loc: [place] Room: Type: [facility] Attending Dr: Gregg Nassar MD Copies [...] Foster Jr., D.O.10/13/2023 12:32 PM Dictation Location: [place] [address] Transcribed By: [facility] 10/13/23 1232 Dictated By: Freedom Foster Jr, DO 10/13/23 1231 Signed By: 10/13/23 1232 Normal [facility] MRI KNEE LT WO CONon [...] by: NOHEMY MARCOS Date: 2022-02-22 08:51 Normal XR knee LT 4V*on 12-12-2021 XR knee LT 4V* [facility] [employer] Other XR knee LT 4V* [facility] [employer] Other XR knee LT 4V* [address] [place] [address] [employer] Other XR knee LT 4V* [place] [address] No rt [employer] Other XR knee LT 4V* XRay Report [employer] Other XR knee LT 4V* Signed [employer] Other XR knee LT 4V* Patient: Susanne Clark MR#: [id number] [employer] Other XR knee LT 4V* [id number] [employer] Other XR knee LT 4V* : 1965 Acct:[id number] [employer] Other XR knee LT 4V* Age/Sex: 56 / F ADM Date: 12/12/21 [employer] Other XR knee LT 4V* Loc: [place] Room: Type: [facility] [employer] Other XR knee LT 4V* Attending Dr: Liliya PALACIO [employer] Other XR knee LT 4V* Copies to: HAKEEM Lim [employer] Other XR knee LT 4V* Ordering Provider: HAKEEM Lim [employer] Other XR knee LT 4V* Date of Service: 12/12/21 [employer] Other XR knee LT 4V* XR/XR knee LT 4V*: Acute pain of left knee [employer] Other XR knee LT 4V* XR knee LT 4V* 12/12/2021 12:41 PM [employer] Other XR knee LT 4V* SIGNS AND SYMPTOMS: Left knee pain after fall [employer] Other XR knee LT 4V* PROTOCOL: Frontal, lateral, and oblique radiographs of the left knee [employer] Other XR knee LT 4V* COMPARISON: None [facility] [employer] Other XR knee LT 4V* FINDINGS: [employer] Other XR knee LT 4V* There is mild narrowing of the patellofemoral joint space with minimal narrowing of the medial [employer] Other XR knee LT 4V* weightbearing joint space. There is no evidence of fracture. No dislocation or subluxation. No [employer] Other XR knee LT 4V* joint effusion. No significant soft tissue swelling. [employer] Other XR knee LT 4V* XR/XR knee LT 4V* [employer] Other XR knee LT 4V* IMPRESSION: [employer] Other XR knee LT 4V* No acute bony injury. [employer] Other XR knee LT 4V* Mild degenerative changes are noted, as above. [employer] Other XR knee LT 4V* Impression dictated by: Bernardo Camacho M.D.12/12/2021 12:59 PM [employer] Other XR knee LT 4V* Dictation Location: [place] [address] [employer] Other XR knee LT 4V* Transcribed By: PWS 12/12/21 1259 [employer] Other XR knee LT 4V* Dictated By: Bernardo Camacho II, MD 12/12/21 1258 [employer] Other XR knee LT 4V* Signed By: [employer] Other XR knee LT 4V* 12/12/21 1258 [employer] Other SARS-CoV-2 (COVID-19) RNA NA A+probe Ql (Resp)on 2021 SARS-CoV-2 (COVID-19) RNA ALYSSA+probe Ql (Unsp spec) Positive [employer] Other T4 [facility] 10-06-2021 T4 [Mass/Vol] 7.2 ug/dL Normal 4.5-12.0 [facility] Comment on above: Performed By: #### T 4LC #### [facility] [address] [place] [address] [address] Chana Ceballos VIT D 25-OH [facility] 2021 Vitamin D, 25-Hydroxy 33.8 ng/mL Normal 30.0-100.0 [facility] Comment on above: Result Comment: Divya min D deficiency has been defined by the [place] of [employer] and an Endocrine Society practice guideline as a level of serum 25-OH vitamin D less than 20 ng/mL (1,2). The Endocrine Society went on to further define vitamin D insufficiency as a level between 21 and 29 ng/mL (2). 1. IOM ([place] [employer]). 2010. Dietary reference intakes for calcium and D. [place]: The National Academies Press. 2. Sundar MF, Dinorah RIVERA, Kimberly GIBSON et al. Evaluation, treatment, and prevention of vitamin D deficiency: an Endocrine Society clinical practice guideline. JCEM. 2010; 96(7):1911-30. Performed By: #### V ITADLC #### [facility] [address] [place] [address] Dr. Chana Ceballos CBC AUTO DIFFon 10-05-2021 BASO # 0.0 103/ul Normal 0.0-0.1 Comment on above: Performed By: #### C BC #### [facility] [address] [place] [address] Dr. Chana Ceballos Basophils/100 WBC (Bld) 0.3 % Normal 0.2-2.0 Comment on above: Performed By: #### C BC #### [facility] [address] [place] [address] Dr. Chana Ceballos EO # 0.2 103/ul Normal 0.0-0.7 Comment on above: Performed By: #### C BC #### [facility] [address] [place] [address] Dr. Chana Ceballos Eosinophils/100 WBC (Bld) 2.1 % Normal 0.9-7.0 Comment on above: Performed By: #### C BC #### [facility] [address] [place] [address] Dr. Chana Ceballos Erythrocyte distribution width (RBC) [Ratio] 12.3 % Normal 11.0-15.0 [facility] Comment on above: Performed By: #### C BC #### [facility] [address] [place] [address] Dr. Chana Ceballos Hematocrit (Bld) [Volume fraction] 41.7 % Normal 36.0-48.0 Comment on above: Performed By: #### C BC #### [facility] [address] [place] [address] Dr. Chana Ceballos Hemoglobin (Bld) [Mass/Vol] 13.6 g/dL Normal 12.0-16.0 Comment on above: Performed By: #### C BC #### [facility] [address] [place] [address] [address] Chana Ceballos IG # 0.04 10e3/ul Critically high 0.00-0.03 [facility] Comment on above: Performed By: #### C BC #### [facility] [address] [place] [address] [address] Chana Ceballos IG % 0.6 % Critically high 0.0-0.5 [facility] Comment on above: Performed By: #### C BC #### [facility] [address] [place] [address] Dr. Chana Ceballos LYMPH # 1.4 103/ul Normal 1.2-3.8 Comment on above: Performed By: #### C BC #### [facility] [address] [place] [address] Dr. Chana Ceballos Lymphocytes/100 WBC (Bld) 19.8 % Critically low 20.5-60.0 Comment on above: Performed By: #### C BC #### [facility] [address] [place] [address] Dr. Chana Ceballos MANUAL DIFF REQ NO Normal [facility] Comment on above: Performed By: #### C BC #### [facility] [address] [place] [address] Dr. Chana Ceballos MCH (RBC) [Entitic mass] 30.3 pg Normal 26.7-34.0 Comment on above: Performed By: #### C BC #### [facility] [address] [place] [address] Dr. Chana Ceballos MCHC (RBC) [Mass/Vol] 32.6 g/dL Normal 29.9-35.2 [facility] Comment on above: Performed By: #### C BC #### [facility] [address] [place] [address] Dr. Chana Ceballos MCV (RBC) [Entitic vol] 92.9 fL Normal 81.0-99.0 Comment on above: Performed By: #### C BC #### [facility] [address] [place] [address] Dr. Chana Ceballos MONO # 0.7 103/ul Normal 0.3-0.8 Comment on above: Performed By: #### C BC #### [facility] [address] [place] [address] Dr. Chana Ceballos Monocytes/100 WBC (Bld) 10.2 % Normal 1.7-12.0 Comment on above: Performed By: #### C BC #### [facility] [address] [place] [address] Dr. Chana Ceballos NEUT # 4.7 103/ul Normal 1.4-6.5 Comment on above: Performed By: #### C BC #### [facility] [address] [place] [address] Dr. Chana Ceballos Neutrophils/100 WBC (Bld) 67.0 % Normal 43.0-75.0 Comment on above: Performed By: #### C BC #### [facility] [address] [place] [address] Dr. Chana Ceballos Platelet mean volume (Bld) [Entitic vol] 11.0 fL Normal 9.5-13.5 [facility] Comment on above: Performed By: #### C BC #### [facility] [address] [place] [address] Dr. Chana Ceballos PLT 212 103/ul Normal 150-450 [facility] Comment on above: Performed By: #### C BC #### [facility] [address] [place] [address] Dr. Chana Ceballos WBC 7.1 103/ul Normal 4.0-11.0 [facility] Comment on above: Performed By: #### C BC #### [facility] [address] [place] [address] Dr. Chana Ceballos FREE T3on 10-05-2021 FREE T3 2.32 pg/mlL Normal 2.18-3.98 Comment on above: Performed By: #### T SH, CMP, LIPID, FT3 #### [facility] [address] [place], [place] [id number] Dr. Chana Ceballos GLYCOHEMOGLOBIN A1Con 2021 ADA RECOMMENDATION SEE BELOW Normal [facility] Comment on above: Result Comment: ADA RECOMMENDED LIMIT 4.0 - 6.0 ADA THERAPEUTIC TARGET < 7.0 ACTION SUGGESTED > 7.0 Performed By: #### A 1C #### [facility] [address] [place] [address] Dr. Chana Ceballos Glucose [Mass/Vol] 169 mg/dL Normal [facility] Comment on above: Performed By: #### A 1C #### [facility] [address] [place] [address] Dr. Chana Ceballos HbA1c (Bld) [Mass fraction] 7.5 % Critically high 4.5-6.2 Comment on above: Performed By: #### A 1C #### [facility] [address] [place] [address] Dr. Chana Ceballos LIPID PROFILEon 10-05-2021 CHOL-HDL RATIO NORM SEE BELOW Normal [facility] Comment on above: Result Comment: 3.3 - 4.4 LOW RISK 4.4 - 7.1 AVERAGE RISK 7.1 - 11.0 MODERATE RISK >11.0 HIGH RISK Performed By: #### T SH, CMP, LIPID, FT3 #### [facility] [address] [place] [address] Dr. Chana Ceballos Cholesterol [Mass/Vol] 217 mg/dL Critically high <=200 Comment on above: Performed By: #### T SH, CMP, LIPID, FT3 #### [facility] [address] [place] [address] Dr. Chana Ceballos Cholesterol in HDL [Mass/Vol] 38 mg/dL Critically low 40-60 Comment on above: Performed By: #### T SH, CMP, LIPID, FT3 #### [facility] [address] [place] [address] Dr. Chana Ceballos Cholesterol in LDL [Mass/Vol] 137.4 mg/dL Normal Comment on above: Performed By: #### T SH, CMP, LIPID, FT3 #### [facility] [address] [place] [address] [address] Chana Ceballos Cholesterol.total/Ch olesterol in HDL [Mass ratio] 5.7 {ratio} Normal Comment on above: Performed By: #### T SH, CMP, LIPID, FT3 #### [facility] [address] [address] [address] Chana Ceballos HDL NORMAL > or = 60 mg/dl - LOW CARDIOVASCULAR RISK <40 mg/dl - HIGH CARDIOVASCULAR RISK Normal Comment on above: Performed By: #### T SH, CMP, LIPID, FT3 #### [facility] [address] [address] [address] Chana Ceballos LDL CALC NORMAL SEE BELOW Normal [facility] Comment on above: Result Comment: <100 mg/dl OPTIMAL 100 - 129 mg/dl NEAR OR ABOVE OPTIMAL 130 - 159 mg/dl BORDERLINE HIGH 160 - 189 mg/dl HIGH >190 mg/dl VERY HIGH Performed By: #### T SH, CMP, LIPID, FT3 #### [facility] [address] [place] [address] [address] Chana Ceballos Triglyceride [Mass/Vol] 208 mg/dL Critically high <=150 Comment on above: Performed By: #### T SH, CMP, LIPID, FT3 #### [facility] [address] [place] [address] [address] Chana Ceballos VLDL CALC 41.6 mg/dL Normal Comment on above: Performed By: #### T SH, CMP, LIPID, FT3 #### [facility] [address] [place] [address] [address] Chana Ceballos PROF 14(COMP METB)on 022 Albumin [Mass/Vol] 4.2 g/dL Normal 3.4-5.0 [facility] Comment on above: Performed By: #### T SH, CMP, LIPID, FT3 #### [facility] [address] [place] [address] [address] Chana Ceballos Albumin/Globulin [Mass ratio] 1.2 {ratio} Normal [facility] Comment on above: Performed By: #### T SH, CMP, LIPID, FT3 #### [facility] [address] [place] [address] Dr. Chana Ceballos ALP [Catalytic activity/Vol] 61 U/L Normal 46-116 Comment on above: Performed By: #### T SH, CMP, LIPID, FT3 #### [facility] [address] [place] [address] Dr. Chana Ceballos ALT [Catalytic activity/Vol] 29 U/L Normal 14-59 Comment on above: Performed By: #### T SH, CMP, LIPID, FT3 #### [facility] [address] [place] [address] Dr. Chana Ceballos Anion gap [Moles/Vol] 14.3 mmol/L Normal Comment on above: Performed By: #### T SH, CMP, LIPID, FT3 #### [facility] [address] [place] [address] Dr. Chana Ceballos AST [Catalytic activity/Vol] 17 U/L Normal 15-37 Comment on above: Performed By: #### T SH, CMP, LIPID, FT3 #### [facility] [address] [place] [address] Dr. Chana Ceballos Bilirubin [Mass/Vol] 0.2 mg/dL Normal 0.2-1.0 Comment on above: Performed By: #### T SH, CMP, LIPID, FT3 #### [facility] [address] [place] [address] Dr. Chana Ceballos Calcium [Mass/Vol] 9.0 mg/dL Normal 8.5-10.1 [facility] Comment on above: Performed By: #### T SH, CMP, LIPID, FT3 #### [facility] [address] [place] [address] Dr. Chana Ceballos Chloride [Moles/Vol] 103 mmol/L Normal 98-107 Comment on above: Performed By: #### T SH, CMP, LIPID, FT3 #### [facility] [address] [place] [address] Dr. Chana Ceballos CO2 [Moles/Vol] 25.1 mmol/L Normal 21.0-32.0 [facility] Comment on above: Performed By: #### T SH, CMP, LIPID, FT3 #### [facility] [address] [address] [address] Chana Ceballos Creatinine [Mass/Vol] 0.93 mg/dL Normal 0.55-1.02 Comment on above: Performed By: #### T SH, CMP, LIPID, FT3 #### [facility] [address] [address] [address] Chana Ceballos EGFR-AF BRAZILIAN >60 Normal >=60 [facility] Comment on above: Performed By: #### T SH, CMP, LIPID, FT3 #### [facility] [address] [place] [address] [address] Chana Ceballos EGFR-NON AF BRAZILIAN >60 Normal >=60 Comment on above: Performed By: #### T SH, CMP, LIPID, FT3 #### [facility] [address] [address] [address] Chana Ceballos Globulin (S) [Mass/Vol] 3.4 g/dL Normal Comment on above: Performed By: #### T SH, CMP, LIPID, FT3 #### [facility] [address] [address] [address] Chana Ceballos Glucose [Mass/Vol] 198 mg/dL Critically high 74-106 [facility] Comment on above: Performed By: #### T SH, CMP, LIPID, FT3 #### [facility] [address] [address] [address] Chana Ceballos Potassium [Moles/Vol] 4.4 mmol/L Normal 3.5-5.1 [facility] Comment on above: Performed By: #### T SH, CMP, LIPID, FT3 #### [facility] [address] [address] [address] Chana Ceballos Protein [Mass/Vol] 7.6 g/dL Normal 6.4-8.2 [facility] Comment on above: Performed By: #### T SH, CMP, LIPID, FT3 #### [facility] [address] [address] [address] Chana Ceballos Sodium [Moles/Vol] 138 mmol/L Normal 136-145 [facility] Comment on above: Performed By: #### T SH, CMP, LIPID, FT3 #### [facility] [address] [place] [address] Dr. Chana Ceballos Urea nitrogen [Mass/Vol] 18.0 mg/dL Normal 7.0-18.0 Comment on above: Performed By: #### T SH, CMP, LIPID, FT3 #### [facility] [address] [address] [address] Chana Ceballos Urea nitrogen/Creatinine [Mass ratio] 19.4 mg/mg Normal Comment on above: Performed By: #### T SH, CMP, LIPID, FT3 #### [facility] [address] [address] [address] Chana Ceballos TSHon 10-05-2021 TSH 2.219 uIU/mL Normal 0.358-3.740 [facility] Comment on above: Performed By: #### T SH, CMP, LIPID, FT3 #### [facility] [address] [place] [address] Dr. Chana Ceballos Vital Signs Date Time Vital Sign Value Performing Clinician Facility 07-12-2023 11:25-0400 Diastolic blood pressure 88 mm[Hg] MD Jaja Parry Work Phone: [facility] 07-12-2023 11:25-0400 Heart rate 82 /min MD Jaja Parry Work Phone: [facility] 07-12-2023 11:25-0400 Respiratory rate 16 /min MD Jaja Parry Work Phone: [facility] 07-12-2023 11:25-0400 SaO2% (BldA) [Mass fraction] 99 % MD Jaja Parry Work Phone: [facility] 07-12-2023 11:25-0400 Systolic blood pressure 138 mm[Hg] MD Jaja Parry Work Phone: [facility] 07-12-2023 10:51-0400 Inhaled oxygen flow rate 3 L/min MD Jaja Parry Work Phone: [facility] 07-12-2023 09:56-0400 Body height 167.64 cm MD Jaja Parry Work Phone: [facility] 07-12-2023 09:56-0400 Body weight 108.86 kg MD Jaja Parry Work Phone: [facility] 06-17-2023 08:47-0400 Body height 167.[address] [facility] 06-17-2023 08:47-0400 Body mass index (BMI) [Ratio] 38.4 kg/m2 [facility] 06-17-2023 08:47-04[address] Body weight [address] [facility] 05-09-2023 08:58-0400 Body height 167.[address] [facility] 05-09-2023 08:58-0400 Body mass index (BMI) [Ratio] 38.7 kg/m2 [facility] 05-09-2023 08:58-0400 Body weight 108.[address] [facility] 07-28-2022 08:15-0400 Body height 167.64 cm Hudson Gu Other [facility] [employer] Other 07-28-2022 08:15-0400 Body mass index (BMI) [Ratio] 38.73 kg/m2 Hudson Gu Other [employer] [facility] [employer] Other 07-28-2022 08:15-0400 Body weight 108.86 kg Hudson Gu Other [employer] Other 12-12-2021 13:05-0400 Body height 167.64 cm Liliya Fletcher Other [employer] Other 12-12-2021 13:05-0400 Body mass index (BMI) [Ratio] 35.51 kg/m2 Liliya Fletcher Other [employer] Other 12-12-2021 13:05-0400 Body temperature 97.9 [degF] Liliya Fletcher Other [employer] Other 12-12-2021 13:05-0400 Body weight 99.79 kg Liliya Fletcher Other [employer] Other 12-12-2021 13:05-0400 Diastolic blood pressure 74 mm[Hg] Liliya Fletcher Other [employer] Other 12-12-2021 13:05-0400 Respiratory rate 18 /min Liliya Fletcher Other [employer] Other 12-12-2021 13:05-0400 SaO2% (BldA) [Mass fraction] 99 % Liliya Fletcher Other [employer] Other 12-12-2021 13:05-0400 Systolic blood pressure 138 mm[Hg] Liliya Fletcher Other [employer] Other 2021 12:30-0400 Body height 167.64 cm Dorys Pughault Other [employer] Other 2021 12:30-0400 Body mass index (BMI) [Ratio] 36.31 kg/m2 Dorys Prudencio Other [employer] Other 2021 12:30-0400 Body temperature 97 [degF] Dorys Prudencio Other [employer] Other 2021 12:30-0400 Body weight 102.06 kg Dorys Flannery Other [facility] [employer] Other Encounters Encounter Date Encounter Type Care Provider Facility Start: 10-13-2023 End: 10-13-2023 ambulatory MD Jaja Parry Work Phone: [facility] Work Phone: Start: 10-13-2023 End: 10-13-2023 Patient encounter procedure MD Jaja Parry Work Phone: [facility] Work Phone: Start: 08-01-2023 End: 08-01-2023 ambulatory MD Jaja Parry Work Phone: [facility] Work Phone: Start: 08-01-2023 End: 08-01-2023 Patient encounter procedure MD Jaja Parry Work Phone: [facility] Work Phone: Start: 07-12-2023 Non-patient / Non-visit MD Linnea Parry Work Phone: [facility] Work Phone: Start: 07-12-2023 End: 07-12-2023 Admission to same day surgery center MD Jaja Parry Work Phone: [facility] Work Phone: Start: 07-12-2023 End: 07-12-2023 ambulatory MD Jaja Parry Work Phone: [facility] Work Phone: Start: 06-30-2023 End: 06-30-2023 Patient encounter procedure MD Jaja Parry Work Phone: [facility] Work Phone: Start: 06-17-2023 End: 06-17-2023 ambulatory [facility] Work Phone: Start: 06-17-2023 End: 06-17-2023 Patient encounter procedure [facility] Work Phone: Start: 05-09-2023 End: 05-09-2023 ambulatory [facility] Work Phone: Start: 05-09-2023 End: 05-09-2023 Patient encounter procedure [facility] Work Phone: Start: 02-02-2023 End: 02-02-2023 ambulatory VALORIE JOSEPHO Not Available Start: 07-28-2022 End: 07-28-2022 ambulatory Hudson Gu Other [employer] Other Start: 07-28-2022 Office outpatient vi sit 25 minutes Hudson Gu [facility] Start: 06-23-2022 End: 06-24-[address] JAJA PARRY . Facility:[facility] Start: 06-14-2022 End: 06-14-2022 ambulatory Hudson Gu Other [employer] Other Start: 06-14-2022 Telephone encounter Hudson Gu [facility] Start: 03-09-2022 End: 04-08-2022 ambulatory HUDSON GU Facility:[facility] Start: 02-22-2022 End: 02-23-2022 ambulatory LILIYA HUTTON Facility:[facility] Start: 12-12-2021 Office outpatient vi sit 15 minutes Liliya Fletcher [facility] Start: 12-12-2021 End: 12-12-2021 ambulatory MD Jaja Parry Work Phone: [employer] Other Start: 12-12-2021 End: 12-12-2021 Patient encounter procedure MD Jaja Parry Work Phone: [facility] Start: 2021 End: 2021 ambulatory Dorys Pughault Other [facility] [employer] Other Start: 2021 Office outpatient ne w 20 minutes Dorys Flannery [facility] Start: 10-07-2021 Encounter for genera l adult medical examination without abnormal findings DR JAJA PARRY . [facility] Start: 10-05-2021 End: 10-06-[address] [...] left knee XR knee LT 2V [facility] Start: 10-13-2023 XR Knee - left 2 Views [facility] Start: 07-12-2023 [facility] Patient Education Know your Meds Felter Non Diagnostic Block [facility] Work Phone: Patient referral [facility] Work Phone: Payers Date Payer Category Payer Self-pay 2012 Unknown [id number] 1965 Unknown [id number] 2.16.84 [id number] 1965 Unknown [id number] 2.16.84 [id number] 1965 Unknown [id number] 2.16.84 [id number] 1965 Unknown [id number] 2.16.84 [id number] 1965 Unknown [id number] 1959 Blue Cross Blue Shield [id number] Unknown [place] [id number] Unknown [id number] 2.16.8 [id number] Unknown [id number] 2.16.8 [id number] Social History Date Type Detail Facility Sex Assigned At [employer] Other Start: 1965 Sex Assigned At Female [facility] Goals Date Patient Goal Desired Activity /State Clinical Notes 2021 to 07-12-2023 Note Date & Type Note Facility 07-12-2023 Procedure note [facility] 05-09-2023 Evaluation note Authored May 09, 2023 9:1 6am We performed a 4/1cc Marcain e / Kenalog cortisone injection into the knee joint under sterile technique. Patient tolerated the injection well without adverse reaction. Patient can follow up as needed. Note scribed by ESEQUIEL Valle, reviewed and amended by myself Hudson Gu D.O. [facility] Work Phone: [phone]) 521-467606-14-2023 Evaluation note* Encounter Date Diagnosis Assessment Notes [...] tolerated the injection well without adverse reaction. [employer] Other 05-01-2023 Evaluation note* Encounter Date Diagnosis Assessment Notes Treatment Notes Treatment Clinical Notes June, Acute meniscal tear of left knee, initial encounter (ICD-10 - S83.207A) [employer] Other 10-29-2022 Evaluation note* Encounter Date Diagnosis [...] Nov, Other Contusion mater ial was printed [employer] Other 08-28-2022 Evaluation note* Encounter Date Diagnosis [...] COVID POSITIVE education handout discharge instructions. given. [employer] Other Evaluation noteNo assessment information available [facility] Work Phone: Evaluation note* Author Mare aRmirez [facility] Authored May 09, 2023 9:1 6am We performed a 4/1cc Marcain e / Kenalog cortisone injection into the knee joint under sterile technique. Patient tolerated the injection well without adverse reaction. Patient can follow up as needed. Note scribed by ESEQUIEL Valle, reviewed and amended by myself Hudson Gu D.O. [facility] Work Phone: Evaluation note* Diagnosis Onset Date Resolution Status Chronic pain acute Knee pain acute Osteoarthritis of left knee acute Chronic pain acute Contusion of left knee acute Knee pain acute Osteoarthritis of left knee acute [facility] Work Phone: History general Narrative - Reported* Type Description Date Medical History diabetes Surgical History c-sections - 2 Surgical History oophorectomy Surgical History hysterectomy [employer] Other [place] general Narrative - Reported* Type Description Date Medical History diabetes Medical History high cholesterol Surgical History c-sections - 2 Surgical History oophorectomy Surgical History hysterectomy [employer] Other Chief Complaint and Reason for Visit [...] and content) DATE CREATED AUTHOR 06/27/2022 [facility] DATE CREATED AUTHOR AUTHOR'S ORGANIZ ATION 02/03/2023 [facility] DATE CREATED AUTHOR AUTHOR'S ORGANIZ ATION 10/26/2023 [facility] FOR RECORDS PERTAINING TO [...] BE BASED ON THE PRIMARY CLINICAL RECORDS. [facility] [employer] [facility]. provides no warranty or guarantee of the accuracy or completeness of information in this document.
[2024-03-22 15:13] LABS: Bilirubin Urine NEGATIVE (NEGATIVE); Blood Urine NEGATIVE (NEGATIVE); Clarity Urine CLEAR (CLEAR); Color Urine YELLOW (YELLOW); Glucose Urine UA >=1000 mg/dL (NEGATIVE); Ketones Urine TRACE mg/dL (NEGATIVE); Leukocyte Esterase Urine NEGATIVE (NEGATIVE); Nitrite Urine NEGATIVE (NEGATIVE); Protein Urine NEGATIVE (NEG/TRACE); Specific Gravity Urine 1.025 (1.005-1.025); Urobilinogen Urine 0.2 EU/dL (0.2-1.0)
--- NOTE | 2024-03-22 15:13 | ECG_ITS ---
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
[2024-03-22 15:14] LABS: Basophils Percent Auto 0.2 % (0.2-2.0); Eosinophils Absolute Auto 0.1 10^3/uL (0.0-0.7); Eosinophils Percent Auto 0.9 % (0.9-7.0); Hematocrit 49.5 % (36.0-48.0); Immature Granulocytes Abs Auto 0.05 10^3/uL (0.00-0.03); Immature Granulocytes Pct Auto 0.4 % (0.0-0.5); Lymphocytes Absolute Auto 2.1 10^3/uL (1.2-3.8); Lymphocytes Percent Auto 18.7 % (20.5-60.0); Mean Corpuscular HGB Conc 34.3 g/dL (29.9-35.2); Mean Corpuscular Hemoglobin 29.8 pg (26.7-34.0); Mean Corpuscular Volume 86.8 fL (81.0-99.0); Mean Platelet Volume 10.7 fL (9.5-13.5); Monocytes Absolute Auto 1.2 10^3/uL (0.3-0.8); Monocytes Percent Auto 10.7 % (1.7-12.0); Neutrophils Absolute Auto 7.8 10^3/uL (1.4-6.5); Neutrophils Percent Auto 69.1 % (43.0-75.0); Platelet Count 262 10^3/uL (150-450); White Blood Count 11.3 10^3/uL (4.0-11.0)
[2024-03-22 15:14] LABS: Urine Microscopic Indicated NO
--- NOTE | 2024-03-22 15:27 | ED.ABDPAIN1 ---
HPI - Abdominal Pain General Chief Complaint: Abdominal Pain Stated Complaint: SENT OVER BY DR PARRY SOB CHEST PAIN Time Seen by Provider: 03/22/24 14:46 Mode of arrival: walk-in History of Present Illness HPI narrative: Patient presents to ED from primary care office for evaluation of abdominal pain. Patient states this all started as chest pain and fatigue and she was in the emergency room over the weekend for the chest pain. She was diagnosed as pleurisy. Patient states she is still been in pain has trouble even sitting up the pain. She said is more in her abdomen in the right upper quadrant area. She does still have her gallbladder. Dr. Parry sent her over for an abdominal pain workup a CT abdomen pelvis and also states that she seems dehydrated. Patient is requesting pain medication. Patient denies any nausea or vomiting. She denies lower abdominal pain or UTI symptoms. No [place] or constipation. Patient states the only relief she gets is laying down and when she sits up she has been. Related Data Home Medications ?Medication ?Instructions ?Recorded ?Confirmed aripiprazole 5 mg tablet 5 mg PO DAILY 01/13/23 03/21/24 blood sugar diagnostic (OneTouch 01/13/23 01/13/23 Verio test strips) bupropion HCl 300 mg 24 hr tablet, 300 mg PO DAILY 01/13/23 03/21/24 extended release flash glucose scanning reader 01/13/23 01/13/23 (FreeStyle Kirsten 2 [place]) flash glucose sensor (FreeStyle 01/13/23 01/13/23 Kirsten 2 Sensor kit) nabumetone 500 mg tablet 500 mg PO BID 01/13/23 03/21/24 sertraline 100 mg tablet 100 mg PO DAILY 01/13/23 03/21/24 simvastatin 20 mg tablet 20 mg PO DAILY 01/13/23 03/21/24 insulin glargine 100 unit/mL (3 10 unit subcut DAILY 03/21/24 03/21/24 mL) subcutaneous pen (Basaglar KwikPen U-100 Insulin) insulin lispro 100 unit/mL 1 sliding scale dose subcut 03/21/24 03/21/24 subcutaneous pen (Admelog SoloStar USEASDIRECTD U-100 Insulin lispro) omega-3 acid ethyl esters 1 gram 1 cap PO DAILY 03/21/24 03/21/24 capsule (Lovaza) tramadol 50 mg tablet mg 03/21/24 Previous Rx's ?Medication ?Instructions ?Recorded losartan 50 mg tablet 50 mg PO DAILY #30 tabs 03/17/24 prednisone 20 mg tablet 40 mg (2 x 20 mg) PO DAILY 3 days 03/17/24 #6 tabs ondansetron 4 mg disintegrating 4 mg PO Q6H PRN nausea and 03/21/24 tablet vomiting #12 tabs sucralfate 1 gram tablet (Carafate) 1 g PO Q6H PRN abdominal pain #12 03/21/24 tabs Allergies Allergy/AdvReac Type Severity Reaction Status Date / Time cephalexin (From Keflex) Allergy Intermediate Unknown Verified 03/21/24 13:55 lisinopril Allergy Intermediate Unknown Verified 03/21/24 13:55 Review of Systems ROS Status of ROS 10 or more systems reviewed and unremarkable except as noted in history and below [facility] Social History Little interest or pleasure in doing things: not at all Feeling down, depressed, or hopeless: not at all Exam Narrative Exam Narrative: Time Seen: [] Vital Signs: [Per nurse's notes.] General: [Alert] Skin: [Warm, dry, no rash.] Head: [Normocephalic, atraumatic.] Neck: [Supple, trachea midline.] Eye: [Pupils are equal, round and reactive to light, extraocular movements are intact, normal conjunctiva.] Ears, nose, mouth and throat: oral mucosa moist. Cardiovascular: [Regular rate and rhythm, no murmur.] Respiratory: [Lungs are clear to auscultation, respirations are non-labored, breath sounds are equal.] Chest wall: [Tenderness to palpation on the left chest wall Gastrointestinal: [Soft, tenderness to palpation epigastric and right upper quadrant non distended, normal bowel sounds.] MSK: 5 out of 5 muscle strength x 4 extremities no calf pain or edema Lymphatics: [No lymphadenopathy.] Psychiatric: [Cooperative, appropriate mood & affect.] Neurological: [Alert and oriented to person, place, time, and situation, no focal neurological deficit observed.] Constitutional Vital Signs, click to edit/add: Last Vital Signs Temp 98.2 F 03/22/24 14:48 Pulse 62 03/22/24 16:59 Resp 20 03/22/24 16:59 BP 159/81 H 03/22/24 16:59 Pulse Ox 99 03/22/24 16:59 O2 Del Method Room Air 03/22/24 16:59 Course Vital Signs Vital signs: Vital Signs Temperature 98.2 F 03/22/24 14:48 Pulse Rate 66 03/22/24 14:48 Respiratory Rate 18 03/22/24 14:48 Blood Pressure 159/83 H 03/22/24 14:48 Pulse Oximetry 96 03/22/24 14:48 Oxygen Delivery Method Room Air 03/22/24 14:48 Temperature 98.2 F 03/22/24 14:48 Pulse Rate 62 03/22/24 16:59 Respiratory Rate 20 03/22/24 16:59 Blood Pressure 159/81 H 03/22/24 16:59 Pulse Oximetry 99 03/22/24 16:59 Oxygen Delivery Method Room Air 03/22/24 16:59 MDM - Abdominal Pain MDM Narrative Medical decision making narrative: Patient has dehydration. No acute findings on the CT scan of her abdomen. Patient has no acute findings in her labs. Amylase lipase are normal. I cannot find a source at this time for her pain. She is still unable to sit up or move and she has severe pain. I spoke to Dr. Parry who will admit her as observation overnight for further care. Patient is comfortable care plan for admission. Differential Diagnosis Differential diagnosis: Likely abdominal pain, calculus of kidney, constipation, diverticulitis, gastroenteritis, pancreatitis and small bowel obstruction Lab Data Attestation: I reviewed the patient's lab results. Labs: Lab Results 03/22/24 03/22/24 Range/Units 15:00 15:02 WBC 11.3 H (4.0-11.0) 10^3/uL RBC 5.70 H (4.20-5.40) 10^6/uL Hgb 17.0 H (12.0-16.0) g/dL Hct 49.5 H (36.0-48.0) % MCV 86.8 (81.0-99.0) fL MCH 29.8 (26.7-34.0) pg MCHC 34.3 (29.9-35.2) g/dL RDW 12.0 (11.0-15.0) % Plt Count 262 (150-450) 10^3/uL MPV 10.7 (9.5-13.5) fL Neut % (Auto) 69.1 (43.0-75.0) % Lymph % (Auto) 18.7 L (20.5-60.0) % [place] % (Auto) 10.7 (1.7-12.0) % Eos % (Auto) 0.9 (0.9-7.0) % Baso % (Auto) 0.2 (0.2-2.0) % Neut # (Auto) 7.8 H (1.4-6.5) 10^3/uL Lymph # (Auto) 2.1 (1.2-3.8) 10^3/uL [place] # (Auto) 1.2 H (0.3-0.8) 10^3/uL Eos # (Auto) 0.1 (0.0-0.7) 10^3/uL Baso # (Auto) 0.0 (0.0-0.1) 10^3/uL Abs Immat Gran (auto) 0.05 H (0.00-0.03) 10^3/uL Imm/Tot Granulo (auto) 0.4 (0.0-0.5) % Sodium 138 (136-145) mmol/L Potassium 4.0 (3.5-5.1) mmol/L Chloride 100 (98-107) mmol/L Carbon Dioxide 24.9 (21.0-32.0) mmol/L Anion Gap 17.1 BUN 20.0 H (7.0-18.0) mg/dL Creatinine 1.00 (0.55-1.02) mg/dL Est GFR ( Amer) >60 (>=60 mL/min/1.73m^2) Est GFR (Non-Af Amer) 57 L (>=60 mL/min/1.73m^2) BUN/Creatinine Ratio 20.0 Glucose 325 H (74-106) mg/dL Calcium 8.8 (8.5-10.1) mg/dL Total Bilirubin 0.7 (0.2-1.0) mg/dL AST 36 (15-37) U/L ALT 46 (14-59) U/L Alkaline Phosphatase 81 (46-116) U/L Troponin I High Sens 4.9 (4.0-51.3) pg/mL Total Protein 7.4 (6.4-8.2) g/dL Albumin 3.8 (3.4-5.0) g/dL Globulin 3.6 g/dL Albumin/Globulin Ratio 1.1 Amylase 26 (25-115) U/L Lipase 46.0 (16.0-77.0) U/L Urine Color Yellow (YELLOW) Urine Clarity Clear (CLEAR) Urine pH 6.0 (5.0-9.0) Ur Specific [place] 1.025 (1.005-1.025) Urine Protein Negative (NEG/TRACE) mg/dL Urine Glucose (UA) >=1000 A (NEGATIVE) mg/dL Urine Ketones Trace A (NEGATIVE) mg/dL Urine Occult Blood Negative (NEGATIVE) Urine Nitrite Negative (NEGATIVE) Urine Bilirubin Negative (NEGATIVE) Urine Urobilinogen 0.2 (0.2-1.0) EU/dL Ur Leukocyte Esterase Negative (NEGATIVE) Imaging Data CT scan - abdomen: Radiologist's impression: ITS Impressions Abdomen/Pelvis CT 03/22/24 14:46 IMPRESSION: No acute intraperitoneal abnormality. Electronically authenticated by: MONSE DAWSON Date: 03/22/2024 16:10 ECG Data Attestation: I personally reviewed and interpreted this ECG as follows: Interpretation: EKG INTERPRETATION Time: [] 152 Rate: [] 63 Rhythm: _ [] Normal sinus rhythm ST segments: _ [] No acute ST elevation or depression T waves: _ [] Ectopy: _ [] P wave/DE interval: _ [] QRS interval: _ [] QT interval: _ [] Comparison: _ [] Comparison EKG date: [] Performed by: [self] Discharge Plan Discharge Chief Complaint: Abdominal Pain Clinical Impression: Abdominal pain Patient Disposition: Admitted as Observation Time of Disposition Decision: 17:28 Condition: Fair Prescriptions / Home Meds: No Action (DME) OneTouch Verio test strips Strip MISCELLANEOUS aripiprazole 5 mg tablet 5 mg PO DAILY bupropion HCl 300 mg tablet extended release 24 hr 300 mg PO DAILY (DME) FreeStyle Kirsten 2 Sensor Kit MISCELLANEOUS (DME) FreeStyle Kirsten 2 [place] Misc MISCELLANEOUS nabumetone 500 mg tablet 500 mg PO BID sertraline 100 mg tablet 100 mg PO DAILY simvastatin 20 mg tablet 20 mg PO DAILY prednisone 20 mg tablet 40 mg PO DAILY 3 Days Qty: 6 0RF losartan 50 mg tablet 50 mg PO DAILY Qty: 30 0RF omega-3 acid ethyl esters [Lovaza] 1 gram capsule 1 cap PO DAILY tramadol 50 mg tablet insulin glargine [Basaglar KwikPen U-100 Insulin] 100 unit/mL (3 mL) insulin pen 10 unit subcut DAILY insulin lispro [Admelog SoloStar U-100 Insulin] 100 unit/mL insulin pen 1 sliding scale dose subcut USEASDIRECTD sucralfate [Carafate] 1 gram tablet 1 g PO Q6H PRN (Reason: abdominal pain) Qty: 12 0RF ondansetron 4 mg tablet,disintegrating 4 mg PO Q6H PRN (Reason: nausea and vomiting) Qty: 12 0RF Print Language: Amharic Referrals: Florencio Parry MD [Primary Care Provider] - 1 week
[2024-03-22 15:37] LABS: Alanine Aminotransferase 46 U/L (14-59); Albumin Globulin Ratio 1.1; Albumin Level 3.8 g/dL (3.4-5.0); Alkaline Phosphatase 81 U/L (46-116); Amylase 26 U/L (25-115); Anion Gap 17.1; Aspartate Amino Transferase 36 U/L (15-37); Bilirubin Total 0.7 mg/dL (0.2-1.0); Calcium 8.8 mg/dL (8.5-10.1); Carbon Dioxide 24.9 mmol/L (21.0-32.0); Chloride 100 mmol/L (98-107); Estimated GFR (African America >60 (>=60 mL/min/1.73m^2); Estimated GFR (Non-African Ame 57 (>=60 mL/min/1.73m^2); Globulin 3.6 g/dL; Glucose 325 mg/dL (74-106); Sodium 138 mmol/L (136-145); Total Protein 7.4 g/dL (6.4-8.2); Troponin I High Sensitivity 4.9 pg/mL (4.0-51.3)
[2024-03-22] MEDS: MORPHINE SULFATE 4 MG/ML VIAL IV (15:50)
[2024-03-22 17:29] LABS: Influenza Virus A Antigen Negative; Influenza Virus B Antigen Negative; Internal Control Within Normal Limits
[2024-03-22 17:30] LABS: Internal Control Within Normal Limits; SARS-CoV-2 Ag NEGATIVE (NEGATIVE)
--- OUTSIDE RECORDS SUMMARY | 2024-03-22 17:50 | XMS_ITS | CCD ---
Author Organization [facility] Care Team Providers Care Kettle Operator Name Role Phone Dorys Flannery Unavailable Liliya Fletcher Unavailable MD Jaja Parry Primary Care Provider [phone] HAKEEM Fletcher Attending Provider [phone] Hudson Gu Unavailable FUENTES ., DR WILKINSON [...] Unavailable MD Jaja Parry Primary Care Provider [phone] MD Gregg Nassar Attending Provider [phone] MD Jaja Parry Primary Care Provider [phone] MD Gregg Nassar Attending Provider [phone] Gregg Nassar Attending Unavailable Jaja Parry Primary Care Unavailable Gregg Nassar Admitting Unavailable Jaja Parry Primary Care Unavailable Gregg Nassar Admitting Unavailable Gregg Nassar Attending Unavailable Allergies Allergy Classification Reported Allergen(s) Allergy Type Date of Onset Reaction(s) Facility Angiotensin Converting Enzyme (ROSS) Inhibitors (1 source) Lisinopril Drug Allergy [address] [place] [address] Cephalosporins (antibiotic) (1 source) Cephalexin Drug Allergy 4 Unknown Reaction [facility] (5 sources) Cephalexin; Translations: [Keflex] Drug Allergy 4 Unknown [facility] (1 source) Corticosteroids Drug allergy (disorder) 4 [facility] (1 source) DULoxetine Drug Allergy 4 [facility] (4 sources) Cephalexin; Translations: [cephalexin] Drug Allergy 4 Unknown Reaction [facility] (4 sources) Lisinopril; Translations: [lisinopril] Drug Allergy 4 Rash [facility] Medications Current Medications Medication Drug Class(es) Dates [...] dispense #42 (forty two) DX: S83.207A Vit C-S.Tvnjzi-Qsgjmv-Uhbwn Sd (Tart Thapa) 69-332-65-75-20 mg capsule (4 sources) Start: 07-12-2023 Vit C-S.Thapa -Celery-Grape Sd (Tart Thapa) 17-541-32-75-20 mg capsule Active CAP PO July 12, [...] LT 2Von 10-13-2023 XR knee LT 2V [facility] [address] [place] [address] XRay Report Signed Patient: Susanne Clark MR#: [id number] : 1965 Acct:[id number] Age/Sex: 58 / F ADM Date: 10/13/23 Loc: [facility] [place] Room: Type: [facility] Attending Dr: Gregg Nassar MD Copies to: Gregg Nassar MD Ordering Provider: Gergg Nassar MD Date of Service: 10/13/23 XR/XR [...] Foster Jr., D.O.10/13/2023 12:32 PM Dictation Location: [place] [address] Transcribed By: [facility] 10/13/23 1232 Dictated By: Freedom Foster Jr, DO 10/13/23 1231 Signed By: 10/13/23 1232 Normal [facility] MRI KNEE LT WO CONon [...] by: NOHEMY MARCOS Date: 2022-02-22 08:51 Normal [facility] XR knee LT 4V*on 12-12-2021 XR knee LT 4V* [facility] [employer] Other XR knee LT 4V* [facility] [employer] Other XR knee LT 4V* [address] [place] [address] [employer] Other XR knee LT 4V* [place] [address] No rt [employer] Other XR knee LT 4V* XRay Report [employer] Other XR knee LT 4V* Signed State Other XR knee LT 4V* Patient: Susanne Clark MR#: [id number] [employer] Other XR knee LT 4V* [id number] State Other XR knee LT 4V* : 1965 Acct:[id number] [employer] Other XR knee LT 4V* Age/Sex: 56 / F ADM Date: 12/12/21 [employer] [facility] Other XR knee LT 4V* Loc: [facility] Room: Type: [facility] [employer] Other XR knee LT 4V* Attending Dr: Liliya PALACIO [employer] Other XR knee LT 4V* Copies to: HAKEEM Lim [employer] [facility] Other XR knee LT 4V* Ordering Provider: HAKEEM Lim [employer] Other XR knee LT 4V* Date of Service: 12/12/21 [employer] Other XR knee LT 4V* XR/XR knee LT 4V*: Acute pain of left knee [employer] Other XR knee LT 4V* XR knee LT 4V* 12/12/2021 12:41 PM [employer] Other XR knee LT 4V* SIGNS AND SYMPTOMS: Left knee pain after fall [employer] Other XR knee LT 4V* PROTOCOL: Frontal, lateral, and oblique radiographs of the left knee [employer] Other XR knee LT 4V* COMPARISON: None [facility] [employer] Other XR knee LT 4V* FINDINGS: State Other XR knee LT 4V* There is mild narrowing of the patellofemoral joint space with minimal narrowing of the medial [employer] Other XR knee LT 4V* weightbearing joint space. There is no evidence of fracture. No dislocation or subluxation. No [employer] Other XR knee LT 4V* joint effusion. No significant soft tissue swelling. [employer] Other XR knee LT 4V* XR/XR knee LT 4V* [employer] Other XR knee LT 4V* IMPRESSION: [employer] Other XR knee LT 4V* No acute bony injury. [employer] Other XR knee LT 4V* Mild degenerative changes are noted, as above. [employer] Other XR knee LT 4V* Impression dictated by: Bernardo Camacho M.D.12/12/2021 12:59 PM [employer] Other XR knee LT 4V* Dictation Location: [place] [address] [employer] Other XR knee LT 4V* Transcribed By: PWS 12/12/21 1259 [employer] Other XR knee LT 4V* Dictated By: Bernardo Camacho II, MD 12/12/21 1258 [employer] Other XR knee LT 4V* Signed By: State Other XR knee LT 4V* 12/12/21 1251 [employer] Other SARS-CoV-2 (COVID-19) RNA NA A+probe Ql (Resp)on 2021 SARS-CoV-2 (COVID-19) RNA ALYSSA+probe Ql (Unsp spec) Positive [employer] Other T4 [facility] 10-06-2021 T4 [Mass/Vol] 7.2 ug/dL Normal 4.5-12.0 [facility] Comment on above: Performed By: #### T 4LC #### [facility] [address] [place] [address] [address] Chana Ceballos VIT D 25-OH [facility] 2021 Vitamin D, 25-Hydroxy 33.8 ng/mL Normal 30.0-100.0 [facility] Comment on above: Result Comment: Divya min D deficiency has been defined by the [place] of [employer] and an Endocrine Society practice guideline as a level of serum 25-OH vitamin D less than 20 ng/mL (1,2). The Endocrine Society went on to further define vitamin D insufficiency as a level between 21 and 29 ng/mL (2). 1. IOM ([place] of [employer]). 2010. Dietary reference intakes for calcium and D. [place]: The National Academies Press. 2. Sundar MF, Dinorah RIVERA, Kimberly GIBSON et al. Evaluation, treatment, and prevention of vitamin D deficiency: an Endocrine Society clinical practice guideline. JCEM. 2010; 96(7):1911-30. Performed By: #### V ITADLC #### [facility] [address] [place] [address] Dr. Chana Ceballos CBC AUTO DIFFon 10-05-2021 BASO # 0.0 103/ul Normal 0.0-0.1 [facility] Comment on above: Performed By: #### C BC #### [facility] [address] [place] [address] Dr. Chana Ceballos Basophils/100 WBC (Bld) 0.3 % Normal 0.2-2.0 [facility] Comment on above: Performed By: #### C BC #### [facility] [address] [place] [address] Dr. Chana Ceballos EO # 0.2 103/ul Normal 0.0-0.7 [facility] Comment on above: Performed By: #### C BC #### [facility] [address] [place] [address] Dr. Chana Ceballos Eosinophils/100 WBC (Bld) 2.1 % Normal 0.9-7.0 [facility] Comment on above: Performed By: #### C BC #### [facility] [address] [place] [address] Dr. Chana Ceballos Erythrocyte distribution width (RBC) [Ratio] 12.3 % Normal 11.0-15.0 [facility] Comment on above: Performed By: #### C BC #### [facility] [address] [place] [address] Dr. Chana Ceballos Hematocrit (Bld) [Volume fraction] 41.7 % Normal 36.0-48.0 [facility] Comment on above: Performed By: #### C BC #### [facility] [address] [place] [address] Dr. Chana Ceballos Hemoglobin (Bld) [Mass/Vol] 13.6 g/dL Normal 12.0-16.0 [facility] Comment on above: Performed By: #### C BC #### [facility] [address] [place] [address] [address] Chana Ceballos IG # 0.04 10e3/ul Critically high 0.00-0.03 [facility] Comment on above: Performed By: #### C BC #### [facility] [address] [place] [address] [address] Chana Ceballos IG % 0.6 % Critically high 0.0-0.5 [facility] Comment on above: Performed By: #### C BC #### [facility] [address] [place] [address] Dr. Chana Ceballos LYMPH # 1.4 103/ul Normal 1.2-3.8 [facility] Comment on above: Performed By: #### C BC #### [facility] [address] [place] [address] Dr. Chana Ceballos Lymphocytes/100 WBC (Bld) 19.8 % Critically low 20.5-60.0 [facility] Comment on above: Performed By: #### C BC #### [facility] [address] [place] [address] Dr. Chana Ceballos MANUAL DIFF REQ NO Normal [facility] Comment on above: Performed By: #### C BC #### [facility] [address] [place] [address] Dr. Chana Ceballos MCH (RBC) [Entitic mass] 30.3 pg Normal 26.7-34.0 [facility] Comment on above: Performed By: #### C BC #### [facility] [address] [place] [address] Dr. Chana Ceballos MCHC (RBC) [Mass/Vol] 32.6 g/dL Normal 29.9-35.2 [facility] Comment on above: Performed By: #### C BC #### [facility] [address] [place] [address] Dr. Chana Ceballos MCV (RBC) [Entitic vol] 92.9 fL Normal 81.0-99.0 [facility] Comment on above: Performed By: #### C BC #### [facility] [address] [place] [address] Dr. Chana Ceballos MONO # 0.7 103/ul Normal 0.3-0.8 [facility] Comment on above: Performed By: #### C BC #### [facility] [address] [place] [address] Dr. Chana Ceballos Monocytes/100 WBC (Bld) 10.2 % Normal 1.7-12.0 [facility] Comment on above: Performed By: #### C BC #### [facility] [address] [place] [address] Dr. Chana Ceballos NEUT # 4.7 103/ul Normal 1.4-6.5 [facility] Comment on above: Performed By: #### C BC #### [facility] [address] [place] [address] Dr. Chana Ceballos Neutrophils/100 WBC (Bld) 67.0 % Normal 43.0-75.0 [facility] Comment on above: Performed By: #### C BC #### [facility] [address] [place] [address] Dr. Chana Ceballos Platelet mean volume (Bld) [Entitic vol] 11.0 fL Normal 9.5-13.5 [facility] Comment on above: Performed By: #### C BC #### [facility] [address] [place] [address] Dr. Chana Ceballos PLT 212 103/ul Normal 150-450 [facility] Comment on above: Performed By: #### C BC #### [facility] [address] [place] [address] Dr. Chana Ceballos WBC 7.1 103/ul Normal 4.0-11.0 [facility] Comment on above: Performed By: #### C BC #### [facility] [address] [place] [address] Dr. Chana Ceballos FREE T3on 10-05-2021 FREE T3 2.32 pg/mlL Normal 2.18-3.98 [facility] Comment on above: Performed By: #### T SH, CMP, LIPID, FT3 #### [facility] [address] [place], [place] [id number] Dr. Chana Ceballos GLYCOHEMOGLOBIN A1Con 2021 ADA RECOMMENDATION SEE BELOW Normal [facility] Comment on above: Result Comment: ADA RECOMMENDED LIMIT 4.0 - 6.0 ADA THERAPEUTIC TARGET < 7.0 ACTION SUGGESTED > 7.0 Performed By: #### A 1C #### [facility] [address] [place] [address] Dr. Chana Ceballos Glucose [Mass/Vol] 169 mg/dL Normal [facility] Comment on above: Performed By: #### A 1C #### [facility] [address] [place] [address] Dr. Chana Ceballos HbA1c (Bld) [Mass fraction] 7.5 % Critically high 4.5-6.2 [facility] Comment on above: Performed By: #### A 1C #### [facility] [address] [place] [address] Dr. Chana Ceballos LIPID PROFILEon 10-05-2021 CHOL-HDL RATIO NORM SEE BELOW Normal [facility] Comment on above: Result Comment: 3.3 - 4.4 LOW RISK 4.4 - 7.1 AVERAGE RISK 7.1 - 11.0 MODERATE RISK >11.0 HIGH RISK Performed By: #### T SH, CMP, LIPID, FT3 #### [facility] [address] [place] [address] Dr. Chana Ceballos Cholesterol [Mass/Vol] 217 mg/dL Critically high <=200 [facility] Comment on above: Performed By: #### T SH, CMP, LIPID, FT3 #### [facility] [address] [place] [address] Dr. Chana Ceballos Cholesterol in HDL [Mass/Vol] 38 mg/dL Critically low 40-60 [facility] Comment on above: Performed By: #### T SH, CMP, LIPID, FT3 #### [facility] [address] [place] [address] Dr. Chana Ceballos Cholesterol in LDL [Mass/Vol] 137.4 mg/dL Normal [facility] Comment on above: Performed By: #### T SH, CMP, LIPID, FT3 #### [facility] [address] [address] [address] Chana Ceballos Cholesterol.total/Ch olesterol in HDL [Mass ratio] 5.7 {ratio} Normal [facility] Comment on above: Performed By: #### T SH, CMP, LIPID, FT3 #### [facility] [address] [place] [address] [address] Chana Ceballos HDL NORMAL > or = 60 mg/dl - LOW CARDIOVASCULAR RISK <40 mg/dl - HIGH CARDIOVASCULAR RISK Normal [facility] Comment on above: Performed By: #### T SH, CMP, LIPID, FT3 #### [facility] [address] [address] [address] Chana Ceballos LDL CALC NORMAL SEE BELOW Normal [facility] Comment on above: Result Comment: <100 mg/dl OPTIMAL 100 - 129 mg/dl NEAR OR ABOVE OPTIMAL 130 - 159 mg/dl BORDERLINE HIGH 160 - 189 mg/dl HIGH >190 mg/dl VERY HIGH Performed By: #### T SH, CMP, LIPID, FT3 #### [facility] [address] [address] [address] Chana Ceballos Triglyceride [Mass/Vol] 208 mg/dL Critically high <=150 [facility] Comment on above: Performed By: #### T SH, CMP, LIPID, FT3 #### [facility] [address] [address] [address] Chana Ceballos VLDL CALC 41.6 mg/dL Normal [facility] Comment on above: Performed By: #### T SH, CMP, LIPID, FT3 #### [facility] [address] [address] [address] Chana Ceballos PROF 14(COMP METB)on 022 Albumin [Mass/Vol] 4.2 g/dL Normal 3.4-5.0 [facility] Comment on above: Performed By: #### T SH, CMP, LIPID, FT3 #### [facility] [address] [address] [address] Chana Ceballos Albumin/Globulin [Mass ratio] 1.2 {ratio} Normal [facility] Comment on above: Performed By: #### T SH, CMP, LIPID, FT3 #### [facility] [address] [place] [address] Dr. Chana Ceballos ALP [Catalytic activity/Vol] 61 U/L Normal 46-116 [facility] Comment on above: Performed By: #### T SH, CMP, LIPID, FT3 #### [facility] [address] [place] [address] Dr. Chana Ceballos ALT [Catalytic activity/Vol] 29 U/L Normal 14-59 [facility] Comment on above: Performed By: #### T SH, CMP, LIPID, FT3 #### [facility] [address] [place] [address] Dr. Chana Ceballos Anion gap [Moles/Vol] 14.3 mmol/L Normal [facility] Comment on above: Performed By: #### T SH, CMP, LIPID, FT3 #### [facility] [address] [place] [address] Dr. Chana Ceballos AST [Catalytic activity/Vol] 17 U/L Normal 15-37 [facility] Comment on above: Performed By: #### T SH, CMP, LIPID, FT3 #### [facility] [address] [place] [address] Dr. Chana Ceballos Bilirubin [Mass/Vol] 0.2 mg/dL Normal 0.2-1.0 [facility] Comment on above: Performed By: #### T SH, CMP, LIPID, FT3 #### [facility] [address] [place] [address] Dr. Chana Ceballos Calcium [Mass/Vol] 9.0 mg/dL Normal 8.5-10.1 [facility] Comment on above: Performed By: #### T SH, CMP, LIPID, FT3 #### [facility] [address] [place] [address] Dr. Chana Ceballos Chloride [Moles/Vol] 103 mmol/L Normal 98-107 [facility] Comment on above: Performed By: #### T SH, CMP, LIPID, FT3 #### [facility] [address] [place] [address] Dr. Chana Ceballos CO2 [Moles/Vol] 25.1 mmol/L Normal 21.0-32.0 [facility] Comment on above: Performed By: #### T SH, CMP, LIPID, FT3 #### [facility] [address] [address] [address] Chana Ceballos Creatinine [Mass/Vol] 0.93 mg/dL Normal 0.55-1.02 [facility] Comment on above: Performed By: #### T SH, CMP, LIPID, FT3 #### [facility] [address] [address] [address] Chana Ceballos EGFR-AF EMIRATI >60 Normal >=60 [facility] Comment on above: Performed By: #### T SH, CMP, LIPID, FT3 #### [facility] [address] [address] [address] Chana Ceballos EGFR-NON AF EMIRATI >60 Normal >=60 [facility] Comment on above: Performed By: #### T SH, CMP, LIPID, FT3 #### [facility] [address] [address] [address] Chana Ceballos Globulin (S) [Mass/Vol] 3.4 g/dL Normal [facility] Comment on above: Performed By: #### T SH, CMP, LIPID, FT3 #### [facility] [address] [address] [address] Chana Ceballos Glucose [Mass/Vol] 198 mg/dL Critically high 74-106 [facility] Comment on above: Performed By: #### T SH, CMP, LIPID, FT3 #### [facility] [address] [address] [address] Chana Ceballos Potassium [Moles/Vol] 4.4 mmol/L Normal 3.5-5.1 [facility] Comment on above: Performed By: #### T SH, CMP, LIPID, FT3 #### [facility] [address] [address] [address] Chana Ceballos Protein [Mass/Vol] 7.6 g/dL Normal 6.4-8.2 [facility] Comment on above: Performed By: #### T SH, CMP, LIPID, FT3 #### [facility] [address] [address] [address] Chana Ceballos Sodium [Moles/Vol] 138 mmol/L Normal 136-145 [facility] Comment on above: Performed By: #### T SH, CMP, LIPID, FT3 #### [facility] [address] [place] [address] Dr. Chana Ceballos Urea nitrogen [Mass/Vol] 18.0 mg/dL Normal 7.0-18.0 [facility] Comment on above: Performed By: #### T SH, CMP, LIPID, FT3 #### [facility] [address] [address] [address] Chana Ceballos Urea nitrogen/Creatinine [Mass ratio] 19.4 mg/mg Normal [facility] Comment on above: Performed By: #### T SH, CMP, LIPID, FT3 #### [facility] [address] [address] [address] Chana Ceballos TSHon 10-05-2021 TSH 2.219 uIU/mL Normal 0.358-3.740 [facility] Comment on above: Performed By: #### T SH, CMP, LIPID, FT3 #### [facility] [address] [place] [address] Dr. Chana Ceballos Vital Signs Date Time Vital Sign Value Performing Clinician Facility 07-12-2023 11:25-0400 Diastolic blood pressure 88 mm[Hg] MD Jaja Parry Work Phone: [facility] 07-12-2023 11:25-0400 Heart rate 82 /min MD Jaja Parry Work Phone: [facility] 07-12-2023 11:25-0400 Respiratory rate 16 /min MD Jaja Parry Work Phone: [facility] 07-12-2023 11:25-0400 SaO2% (BldA) [Mass fraction] 99 % MD Jaja Parry Work Phone: [facility] 07-12-2023 11:25-0400 Systolic blood pressure 138 mm[Hg] MD Jaja Parry Work Phone: [facility] 07-12-2023 10:51-0400 Inhaled oxygen flow rate 3 L/min MD Jaja Parry Work Phone: [facility] 07-12-2023 09:56-0400 Body height 167.64 cm MD Jaja Parry Work Phone: [facility] 07-12-2023 09:56-0400 Body weight 108.86 kg MD Jaja Parry Work Phone: [facility] 06-17-2023 08:47-0400 Body height 167.64 cm [facility] 06-17-2023 08:47-0400 Body mass index (BMI) [Ratio] 38.4 kg/m2 [facility] 06-17-2023 08:47-0400 Body weight 108 kg [facility] 05-09-2023 08:58-0400 Body height 167.64 cm [facility] 05-09-2023 08:58-0400 Body mass index (BMI) [Ratio] 38.7 kg/m2 [facility] 05-09-2023 08:58-0400 Body weight 108.94 kg [facility] 07-28-2022 08:15-0400 Body height 167.64 cm Hudson Gu Other [facility] [employer] Other 07-28-2022 08:15-0400 Body mass index (BMI) [Ratio] 38.73 kg/m2 Hudson Gu Other [facility] [employer] Other 07-28-2022 08:15-0400 Body weight 108.86 kg Hudson Gu Other [employer] Other 12-12-2021 13:05-0400 Body height 167.64 cm Liliya Fletcher Other [employer] Other 12-12-2021 13:05-0400 Body mass index (BMI) [Ratio] 35.51 kg/m2 Liliya Fletcher Other [employer] Other 12-12-2021 13:05-0400 Body temperature 97.9 [degF] Liliya Fletcher Other [employer] Other 12-12-2021 13:05-0400 Body weight 99.79 kg Liliya Fletcher Other [employer] Other 12-12-2021 13:05-0400 Diastolic blood pressure 74 mm[Hg] Liliya Fletcher Other [employer] Other 12-12-2021 13:05-0400 Respiratory rate 18 /min Liliya Fletcher Other [employer] Other 12-12-2021 13:05-0400 SaO2% (BldA) [Mass fraction] 99 % Liliya Fletcher Other [employer] Other 12-12-2021 13:05-0400 Systolic blood pressure 138 mm[Hg] Liliya Fletcher Other [employer] Other 2021 12:30-0400 Body height 167.64 cm Dorys Pughault Other [employer] Other 2021 12:30-0400 Body mass index (BMI) [Ratio] 36.31 kg/m2 Dorys Prudencio Other [employer] Other 2021 12:30-0400 Body temperature 97 [degF] Dorys Prudencio Other [employer] Other 2021 12:30-0400 Body weight 102.06 kg Dorys Flannery Other [facility] [employer] Other Encounters Encounter Date Encounter Type Care Provider Facility Start: 10-13-2023 End: 10-13-2023 ambulatory MD Jaja Parry Work Phone: [facility] Work Phone: Start: 10-13-2023 End: 10-13-2023 Patient encounter procedure MD Jaja Parry Work Phone: [facility] Work Phone: Start: 08-01-2023 End: 08-01-2023 ambulatory MD Jaja Parry Work Phone: [facility] Work Phone: Start: 08-01-2023 End: 08-01-2023 Patient encounter procedure MD Jaja Parry Work Phone: [facility] Work Phone: Start: 07-12-2023 Non-patient / Non-visit MD Linnea Parry Work Phone: [facility] Work Phone: Start: 07-12-2023 End: 07-12-2023 Admission to same day surgery center MD Jaja Parry Work Phone: [facility] Work Phone: Start: 07-12-2023 End: 07-12-2023 ambulatory MD Jaja Parry Work Phone: [facility] Work Phone: Start: 06-30-2023 End: 06-30-2023 Patient encounter procedure MD Jaja Parry Work Phone: [facility] Work Phone: Start: 06-17-2023 End: 06-17-2023 ambulatory [facility] Work Phone: Start: 06-17-2023 End: 06-17-2023 Patient encounter procedure [facility] [facility] Work Phone: Start: 05-09-2023 End: 05-09-2023 ambulatory [facility] Work Phone: Start: 05-09-2023 End: 05-09-2023 Patient encounter procedure [facility] Work Phone: Start: 02-02-2023 End: 02-02-2023 ambulatory VALORIE JOSEPHO Not Available Start: 07-28-2022 End: 07-28-2022 ambulatory Hudson Gu Other [employer] Other Start: 07-28-2022 Office outpatient vi sit 25 minutes Hudson Gu [facility] Start: 06-23-2022 End: 06-24-[address] JAJA PARRY . Facility:[facility]1 Start: 06-14-2022 End: 06-14-2022 ambulatory Hudson Gu Other [employer] Other Start: 06-14-2022 Telephone encounter Hudson Gu [facility] Start: 03-09-2022 End: 04-08-2022 ambulatory HUDSON GU Facility:[facility]1 Start: 02-22-2022 End: 02-23-2022 ambulatory LILIYA HUTTON Facility:[facility] Start: 12-12-2021 Office outpatient vi sit 15 minutes Liliya [facility] Start: 12-12-2021 End: 12-12-2021 ambulatory MD Jaja Parry Work Phone: [employer] Other Start: 12-12-2021 End: 12-12-2021 Patient encounter procedure MD Jaja Parry Work Phone: [facility] Start: 2021 End: 2021 ambulatory Dorys Pughault Other [facility] [employer] Other Start: 2021 Office outpatient ne w 20 minutes Dorys Flannery [facility] Start: 10-07-2021 Encounter for genera l adult medical examination without abnormal findings DR JAJA PARRY . [facility] Start: 10-05-2021 End: 10-06-[address] [...] left knee XR knee LT 2V F[facility] Start: 10-13-2023 XR Knee - left 2 Views [facility] Start: 07-12-2023 [facility] Patient Education Know your Meds Felter Non Diagnostic Block [facility] Work Phone: Patient referral [facility] Work Phone: Payers Date Payer Category Payer Self-pay 2012 Unknown [id number] 1965 Unknown [id number] 2.16.84 [id number] 1965 Unknown [id number] 2.16.84 [id number] 1965 Unknown [id number] 2.16.84 [id number] 1965 Unknown [id number] 2.16.84 [id number] 1965 Unknown [id number] 1961 Blue [employer] Blue Shield [id number] Unknown [place] [id number] Unknown [id number] 2.16.8 [id number] Unknown [id number] 2.16.8 [id number] Social History Date Type Detail Facility Sex Assigned At [employer] Other Start: 1965 Sex Assigned At Female F [facility] Goals Date Patient Goal Desired Activity /State Clinical Notes 2021 to 07-12-2023 Note Date & Type Note Facility 07-12-2023 Procedure note [facility] 05-09-2023 Evaluation note Authored May 09, 2023 9:1 6am We performed a 4/1cc Marcain e / Kenalog cortisone injection into the knee joint under sterile technique. Patient tolerated the injection well without adverse reaction. Patient can follow up as needed. Note scribed by ESEQUIEL Valle, reviewed and amended by myself Hudson Gu D.O. [facility] Work Phone: 1(259) 896-208506-14-2023 Evaluation note* Encounter Date Diagnosis Assessment Notes [...] tolerated the injection well without adverse reaction. [employer] Other 05-01-2023 Evaluation note* Encounter Date Diagnosis Assessment Notes Treatment Notes Treatment Clinical Notes June, Acute meniscal tear of left knee, initial encounter (ICD-10 - S83.207A) [employer] Other 10-29-2022 Evaluation note* Encounter Date Diagnosis [...] Nov, Other Contusion mater ial was printed [employer] Other 08-28-2022 Evaluation note* Encounter Date Diagnosis [...] COVID POSITIVE education handout discharge instructions. given. [employer] Other Evaluation noteNo assessment information available [facility] Work Phone: Evaluation note* Author Mare Ramirez [facility] Authored May 09, 2023 9:1 6am We performed a 4/1cc Marcain e / Kenalog cortisone injection into the knee joint under sterile technique. Patient tolerated the injection well without adverse reaction. Patient can follow up as needed. Note scribed by ESEQUIEL Valle, reviewed and amended by myself Hudson Gu D.O. [facility] Work Phone: Evaluation note* Diagnosis Onset Date Resolution Status Chronic pain acute Knee pain acute Osteoarthritis of left knee acute Chronic pain acute Contusion of left knee acute Knee pain acute Osteoarthritis of left knee acute [facility] Work Phone: History general Narrative - Reported* Type Description Date Medical History diabetes Surgical History c-sections - 2 Surgical History oophorectomy Surgical History hysterectomy [employer] Other [employer] general Narrative - Reported* Type Description Date Medical History diabetes Medical History high cholesterol Surgical History c-sections - 2 Surgical History oophorectomy Surgical History hysterectomy [employer] Other Chief Complaint and Reason for Visit [...] and content) DATE CREATED AUTHOR 06/27/2022 [facility] DATE CREATED AUTHOR AUTHOR'S ORGANIZ ATION 02/03/2023 [facility] dical [facility] DATE CREATED AUTHOR AUTHOR'S ORGANIZ ATION 10/26/2023 [facility] FOR RECORDS PERTAINING TO [...] ON THE PRIMARY CLINICAL RECORDS. [facility] [email or web address] [facility]. provides no warranty or guarantee of the accuracy or completeness of information in this document.
--- NOTE | 2024-03-22 18:10 | P.HP_ITS ---
HPI H&P: HPI History of Present Illness Chief complaint: SENT OVER BY DR FUENTES MIRELES CHEST PAIN, ABD PAIN Narrative: Patient presented to the emergency room after being referred from the office, when I saw her in the office she was having extreme fatigue, she could barely sit up, describes more epigastric pain, up into the right upper quadrant, she is extensive cardiac workup done few days ago through the emergency room and she was having similar symptoms, with there is severe weakness and appearance of her dehydration she was referred back to the ER, concern for cholecystitis. Opioid HPI Opioid Management Most Recent Pain and Opioid Data: Last Pain Scale 7 03/22/24 18:00 03/22/24 Last Pain Assessment 03/22/24 18:00 Last ORT Total Score 1 03/22/24 17:48 03/22/24 Last ORT Risk Category Low Risk 03/22/24 17:48 03/22/24 PFSH PFS Surgical History (Updated 03/22/24 @ 17:53 by Mary Woo) H/O oophorectomy H/O: hysterectomy ?Z90.710 - Acquired absence of both cervix and uterus (ICD-10) Social History Highest level of school completed/degree received: some college, no degree Little interest or pleasure in doing things: nearly every day Feeling down, depressed, or hopeless: not at all Meds Home Medications and Allergies Home Medications ?Medication ?Instructions ?Recorded ?Confirmed ?Type blood sugar diagnostic (OneTouch 01/13/23 01/13/23 History Verio test strips) flash glucose scanning reader 01/13/23 01/13/23 History (FreeStyle Kirsten 2 [place]) flash glucose sensor (FreeStyle 01/13/23 01/13/23 History Kirsten 2 Sensor kit) nabumetone 500 mg tablet 500 mg PO BID 01/13/23 03/22/24 History simvastatin 20 mg tablet 20 mg PO DAILY 01/13/23 03/22/24 History losartan 50 mg tablet 50 mg PO DAILY #30 tabs 03/17/24 03/22/24 Rx prednisone 20 mg tablet 40 mg (2 x 20 mg) PO DAILY 3 days 03/17/24 03/22/24 Rx #6 tabs insulin glargine 100 unit/mL (3 20 unit subcut DAILY 03/21/24 03/22/24 History mL) subcutaneous pen (Basaglar KwikPen U-100 Insulin) insulin lispro 100 unit/mL 1 sliding scale dose subcut 03/21/24 03/22/24 History subcutaneous pen (elmica OvallesoStar USEASDIRECTD U-100 Insulin lispro) ondansetron 4 mg disintegrating 4 mg PO Q6H PRN nausea and 03/21/24 03/22/24 Rx tablet vomiting #12 tabs sucralfate 1 gram tablet (Carafate) 1 g PO Q6H PRN abdominal pain #12 03/21/24 03/22/24 Rx tabs glimepiride 4 mg tablet 4 mg PO DAILY 03/22/24 03/22/24 History metoprolol tartrate 50 mg tablet 50 mg PO Q12H 03/22/24 03/22/24 History omega-3 acid ethyl esters 1 gram 4 cap PO DAILY 03/22/24 03/22/24 History capsule Allergies Allergy/AdvReac Type Severity Reaction Status Date / Time cephalexin (From Keflex) Allergy Intermediate Unknown Verified 03/21/24 13:55 lisinopril Allergy Intermediate Unknown Verified 03/21/24 13:55 Exam Constitutional Vital Signs, click to edit/add: Last Vital Signs Temp 97.8 F 03/22/24 17:48 Pulse 62 03/22/24 17:48 Resp 18 03/22/24 17:48 BP 170/87 H 03/22/24 17:48 Pulse Ox 96 03/22/24 17:48 O2 Del Method Room Air 03/22/24 17:48 Documenting provider has reviewed patient's vital signs: yes Common normals: apparent distress (Severe fatigue) Lymph Lymphatic: no lymphadenopathy noted Chest Common normals: inspection of chest normal Respiratory Common normals: normal respiratory effort and no retractions Cardio Common normals: regular rate and regular rhythm GI Common normals: soft to palpation; negative for Normal to inspection, nondistended, normoactive bowel sounds present and tender Palpation: tender (Right upper quadrant tenderness with positive Whitman's) Results Labs Labs: Short CBC 03/22/24 Range/Units 15:02 WBC 11.3 H (4.0-11.0) 10^3/uL Hgb 17.0 H (12.0-16.0) g/dL Hct 49.5 H (36.0-48.0) % Plt Count 262 (150-450) 10^3/uL BMP 03/22/24 15:02 Sodium 138 Potassium 4.0 Chloride 100 Carbon Dioxide 24.9 BUN 20.0 H Creatinine 1.00 Glucose 325 H Calcium 8.8 Liver Function 03/22/24 Range/Units 15:02 Total Bilirubin 0.7 (0.2-1.0) mg/dL AST 36 (15-37) U/L ALT 46 (14-59) U/L Alkaline Phosphatase 81 (46-116) U/L Albumin 3.8 (3.4-5.0) g/dL Urine 03/22/24 Range/Units 15:00 Urine Color Yellow (YELLOW) Urine Clarity Clear (CLEAR) Urine pH 6.0 (5.0-9.0) Ur Specific Whitman 1.025 (1.005-1.025) Urine Protein Negative (NEG/TRACE) mg/dL Urine Glucose (UA) >=1000 A (NEGATIVE) mg/dL Assessment and Plan Assessment and Plan (1) Abdominal pain: Plan Admission findings: Uncontrolled hypertension, leukocytosis, erythrocytosis, elevated BUN all consistent with significant dehydration Dehydration-uncertain etiology although acute cholecystitis likely ruled out with CT scan, gastroenteritis possible-check on COVID and influenza AMB. IV fluids overnight, repeat fluid bolus, Protonix for epigastric pain Diabetes mellitus with severe hyperglycemia-this is likely related to the sickness as outlined above-insulin sliding scale Arthralgias-continue with home medications Admission status: Patient with significant dehydration with elevated BUN and erythrocytosis consistent with dehydration, IV fluids overnight, will start patient off as observation, if she is unimproved tomorrow then medically necessary treatment will span 2 midnights and will change her to inpatient status.
[2024-03-22] MEDS: SUCRALFATE 1 GM TABLET PO (18:24)
[2024-03-22] MEDS: DEXAMETHASONE SOD PHOS 4 MG/ML VIAL 10 MG IV (18:24)
[2024-03-22] MEDS: 0.9 % SODIUM CHLORIDE 1,000 ML 1000 ML IV (18:24)
[2024-03-22] MEDS: HYOSCYAMINE SULFATE 0.125 MG TAB.SUBL SL ×2 (18:24→21:20)
[2024-03-22] MEDS: ONDANSETRON PF 4 MG/2 ML VIAL IV (18:24)
[2024-03-22] MEDS: LACTATED RINGER'S SOLUTION 1,000 ML 100 ML IV (18:25)
[2024-03-22 21:17] LABS: Glucometer 295 mg/dL (74-106)
[2024-03-22] MEDS: PANTOPRAZOLE SODIUM 40 MG VIAL IV (21:19)
[2024-03-22] MEDS: METOPROLOL TARTRATE 50 MG TABLET PO (21:19)
[2024-03-22] MEDS: INSULIN ASPART 300 UNIT/3 ML PEN SUBQ (21:20)
[2024-03-23] MEDS: ACETAMINOPHEN 500 MG TABLET 1000 MG PO (00:08)
[2024-03-23] MEDS: SUCRALFATE 1 GM TABLET PO ×2 (00:08→08:16)
[2024-03-23 00:15] VITALS: BP 148/77; PULSE 62; TEMP 36.5; O2SAT 93
[2024-03-23 00:25] LABS: Lactate/Lactic Acid 2.6 mmol/L (0.4-2.0)
[2024-03-23 04:00] VITALS: BP 137/75; PULSE 59; TEMP 36.4; O2SAT 94
[2024-03-23] MEDS: LACTATED RINGER'S SOLUTION 1,000 ML 100 ML IV (05:09)
[2024-03-23] MEDS: HYOSCYAMINE SULFATE 0.125 MG TAB.SUBL SL (05:09)
[2024-03-23 06:07] LABS: Basophils Percent Auto 0.1 % (0.2-2.0); Hemoglobin 14.7 g/dL (12.0-16.0); Immature Granulocytes Abs Auto 0.04 10^3/uL (0.00-0.03); Immature Granulocytes Pct Auto 0.4 % (0.0-0.5); Lymphocytes Absolute Auto 0.7 10^3/uL (1.2-3.8); Lymphocytes Percent Auto 6.6 % (20.5-60.0); Mean Corpuscular HGB Conc 34.2 g/dL (29.9-35.2); Mean Corpuscular Hemoglobin 29.4 pg (26.7-34.0); Mean Platelet Volume 11.2 fL (9.5-13.5); Monocytes Absolute Auto 0.2 10^3/uL (0.3-0.8); Monocytes Percent Auto 1.8 % (1.7-12.0); Neutrophils Absolute Auto 10.1 10^3/uL (1.4-6.5); Neutrophils Percent Auto 91.1 % (43.0-75.0); Platelet Count 215 10^3/uL (150-450); Red Cell Distribution Width 11.7 % (11.0-15.0); White Blood Count 11.1 10^3/uL (4.0-11.0)
[2024-03-23 06:16] LABS: Anion Gap 14.7; BUN Creatinine Ratio 16.3; Calcium 8.6 mg/dL (8.5-10.1); Carbon Dioxide 25.8 mmol/L (21.0-32.0); Chloride 100 mmol/L (98-107); Estimated GFR (African America >60 (>=60 mL/min/1.73m^2); Estimated GFR (Non-African Ame >60 (>=60 mL/min/1.73m^2); Glucose 335 mg/dL (74-106); Potassium 4.5 mmol/L (3.5-5.1); Sodium 136 mmol/L (136-145)
[2024-03-23 06:27] LABS: Lactate/Lactic Acid 1.6 mmol/L (0.4-2.0)
--- NOTE | 2024-03-23 07:45 | US_ITS ---
The [address] [address] Patient Name: RJ PINZON MRN: [id number] date: 1965 Sex: F Assigned Patient Location: [place] Current Patient Location: [place] Accession/Order Number: [id number] Exam Date: 03/23/2024 08:30 Report Date: 03/23/2024 09:54 At the request of: JAJA DILL Procedure: US right upper quadrant EXAM: US right upper quadrant HISTORY: Abdominal pain COMPARISON: 03/22/2024 TECHNIQUE: Grayscale, color and Doppler FINDINGS: The liver is normal in size and contour. Diffuse increase in hepatic echotexture suggesting hepatic steatosis. No focal mass. Hepatopedal flow in the main portal vein The visualized pancreas is normal The gallbladder is normal in size. The wall measures 1.2 mm. The common bile duct measures 4 mm. Negative sonographic Whitman sign. No cholelithiasis Right kidney is normal measuring 12.3 x 5.6 x 5.3 cm US/US right upper quadrant IMPRESSION: Echogenic liver suggesting hepatic steatosis. Electronically authenticated by: MONSE DAWSON Date: 03/23/2024 09:54
--- NOTE | 2024-03-23 07:49 | P.DS_ITS ---
DS: Providers Provider Date of admission: 03/22/24 17:46 Primary care physician: Florencio Parry MD DS: Diagnosis Discharge Diagnosis (1) Abdominal pain: Plan Admission findings: Uncontrolled hypertension, leukocytosis, erythrocytosis, elevated BUN all consistent with significant dehydration Dehydration-uncertain etiology although acute cholecystitis likely ruled out with CT scan, gastroenteritis possible-check on COVID and influenza AMB. IV fluids overnight, repeat fluid bolus, Protonix for epigastric pain Diabetes mellitus with severe hyperglycemia-this is likely related to the sickness as outlined above-insulin sliding scale Arthralgias-continue with home medications Admission status: Patient with significant dehydration with elevated BUN and erythrocytosis consistent with dehydration, IV fluids overnight, will start patient off as observation, if she is unimproved tomorrow then medically necessary treatment will span 2 midnights and will change her to inpatient status. ? DS: Summary Hospital Course Hospital Course: Patient seen in the office with weakness and abdominal pain. Patient referred to ER suspecting mild to moderate dehydration., CT scan of the abdomen did not show any acute abnormality, amylase and lipase were normal, she does still have right upper quadrant tenderness, will repeat ultrasound, if ultrasound is normal and she is able to eat she will be discharged to home in improving condition. Medications see list. Follow-up with me in the office in 3 days. Time Spent with Patient Time attestation: Total time spent providing and/or coordinating discharge services: Exam Constitutional Vital Signs, click to edit/add: Last Vital Signs Temp 97.5 F L 03/23/24 04:00 Pulse 59 L 03/23/24 04:00 Resp 18 03/23/24 04:00 BP 137/75 03/23/24 04:00 Pulse Ox 94 L 03/23/24 04:00 O2 Del Method Room Air 03/23/24 04:00 Documenting provider has reviewed patient's vital signs: yes Common normals: apparent distress (Looks better today) Lymph Lymphatic: no lymphadenopathy noted Chest Common normals: inspection of chest normal Respiratory Common normals: normal respiratory effort and no retractions Cardio Common normals: regular rate and regular rhythm GI Common normals: soft to palpation; negative for Normal to inspection, nondistended, normoactive bowel sounds present (Obese) and tender (Right upper quadrant tenderness persisting, but improved from previous day) Palpation: tender (Right upper quadrant tenderness with positive Whitman's) DS: Data Data Completed and Pending Labs on day of discharge: Labs from last 24 hours 03/23/24 03/22/24 03/22/24 05:40 23:55 21:16 WBC 11.1 H RBC 5.00 Hgb 14.7 Hct 43.0 MCV 86.0 MCH 29.4 MCHC 34.2 RDW 11.7 Plt Count 215 MPV 11.2 Neut % (Auto) 91.1 H Lymph % (Auto) 6.6 L Lares % (Auto) 1.8 Eos % (Auto) 0.0 L Baso % (Auto) 0.1 L Neut # (Auto) 10.1 H Lymph # (Auto) 0.7 L [place] # (Auto) 0.2 L Eos # (Auto) 0.0 Baso # (Auto) 0.0 Abs Immat Gran (auto) 0.04 H Imm/Tot Granulo (auto) 0.4 Sodium 136 Potassium 4.5 Chloride 100 Carbon Dioxide 25.8 Anion Gap 14.7 BUN 15.0 Creatinine 0.92 Est GFR ( Amer) >60 Est GFR (Non-Af Amer) >60 BUN/Creatinine Ratio 16.3 Glucose 335 H Lactate 1.6 2.6 H* Calcium 8.6 Total Bilirubin AST ALT Alkaline Phosphatase Troponin I High Sens Total Protein Albumin Globulin Albumin/Globulin Ratio Amylase Lipase Urine Color Urine Clarity Urine pH Ur Specific [place] Urine Protein Urine Glucose (UA) Urine Ketones Urine Occult Blood Urine Nitrite Urine Bilirubin Urine Urobilinogen Ur Leukocyte Esterase Influenza Type A Ag Influenza Type B Ag SARS-CoV-2 Ag (CV2AG) POC Glucose 295 H 03/22/24 03/22/24 03/22/24 17:00 15:02 15:00 WBC 11.3 H RBC 5.70 H Hgb 17.0 H Hct 49.5 H MCV 86.8 MCH 29.8 MCHC 34.3 RDW 12.0 Plt Count 262 MPV 10.7 Neut % (Auto) 69.1 Lymph % (Auto) 18.7 L [place] % (Auto) 10.7 Eos % (Auto) 0.9 Baso % (Auto) 0.2 Neut # (Auto) 7.8 H Lymph # (Auto) 2.1 Lares # (Auto) 1.2 H Eos # (Auto) 0.1 Baso # (Auto) 0.0 Abs Immat Gran (auto) 0.05 H Imm/Tot Granulo (auto) 0.4 Sodium 138 Potassium 4.0 Chloride 100 Carbon Dioxide 24.9 Anion Gap 17.1 BUN 20.0 H Creatinine 1.00 Est GFR ( Amer) >60 Est GFR (Non-Af Amer) 57 L BUN/Creatinine Ratio 20.0 Glucose 325 H Lactate Calcium 8.8 Total Bilirubin 0.7 AST 36 ALT 46 Alkaline Phosphatase 81 Troponin I High Sens 4.9 Total Protein 7.4 Albumin 3.8 Globulin 3.6 Albumin/Globulin Ratio 1.1 Amylase 26 Lipase 46.0 Urine Color Yellow Urine Clarity Clear Urine pH 6.0 Ur Specific [place] 1.025 Urine Protein Negative Urine Glucose (UA) >=1000 A Urine Ketones Trace A Urine Occult Blood Negative Urine Nitrite Negative Urine Bilirubin Negative Urine Urobilinogen 0.2 Ur Leukocyte Esterase Negative Influenza Type A Ag Negative Influenza Type B Ag Negative SARS-CoV-2 Ag (CV2AG) Negative POC Glucose Discharge Plan Discharge Disposition: Home, Self-Care Condition: Fair Discharge Medications: Continued (DME) OneTouch Verio test strips Strip MISCELLANEOUS (DME) FreeStyle Kirsten 2 Sensor Kit MISCELLANEOUS (DME) FreeStyle Kirsten 2 [place] Misc MISCELLANEOUS nabumetone 500 mg tablet 500 mg PO BID simvastatin 20 mg tablet 20 mg PO DAILY prednisone 20 mg tablet 40 mg PO DAILY 3 Days Qty: 6 0RF losartan 50 mg tablet 50 mg PO DAILY Qty: 30 0RF insulin glargine [Basaglar KwikPen U-100 Insulin] 100 unit/mL (3 mL) insulin pen 20 unit subcut DAILY insulin lispro [Admelog SoloStar U-100 Insulin] 100 unit/mL insulin pen 1 sliding scale dose subcut USEASDIRECTD sucralfate [Carafate] 1 gram tablet 1 g PO Q6H PRN (Reason: abdominal pain) Qty: 12 0RF ondansetron 4 mg tablet,disintegrating 4 mg PO Q6H PRN (Reason: nausea and vomiting) Qty: 12 0RF metoprolol tartrate 50 mg tablet 50 mg PO Q12H omega-3 acid ethyl esters 1 gram capsule 4 cap PO DAILY glimepiride 4 mg tablet 4 mg PO DAILY Print Language: Bengali Forms: Portal Instructions
[2024-03-23 07:56] VITALS: BP 151/82; PULSE 61; TEMP 36.4; O2SAT 97
[2024-03-23] MEDS: GLIMEPIRIDE 2 MG TABLET 4 MG PO (08:16)
[2024-03-23] MEDS: DEXAMETHASONE SOD PHOS 4 MG/ML VIAL 6 MG IV (08:16)
[2024-03-23] MEDS: LOSARTAN POTASSIUM 50 MG TABLET PO (08:16)
[2024-03-23] MEDS: METOPROLOL TARTRATE 50 MG TABLET PO (08:16)
[2024-03-23] MEDS: KETOROLAC TROMETHAMINE 30 MG/ML VIAL IVP (08:17)
[2024-03-23] MEDS: INSULIN GLARGINE 300 UNIT/3 ML INSULN.PEN 20 UNIT SQ (08:17)
[2024-03-23] MEDS: INSULIN ASPART 300 UNIT/3 ML PEN SUBQ ×2 (08:17→11:52)
[2024-03-23 11:54] LABS: Glucometer 277 mg/dL (74-106)
[2024-03-23 12:01] VITALS: O2SAT 95
--- NOTE | 2024-03-26 11:43 | CM.DCFOLLOWU ---
Person spoke with:patient How are you feeling? better than when she was here How is your pain?none Did you understand your discharge instructions?yes Do you have any questions about your discharge instructions?no Were you given any prescriptions at discharge? no Were you able to get your prescriptions filled?N/A Do you understand how to take your medications as ordered?yes Do you have any questions about your follow up appointment and do you plan to keep your follow up appointment? no questions Is there anything else that you would like to discuss?no Questions/Comments/Concerns/Other:none
== END 2024-03-23 13:20 | disposition home or self-care (01) ==
LOC: ER 17:28 → MS 17:47
PROVIDERS: Admitting Provider Family Medicine; Emergency Provider Emergency Medicine; PCP Family Medicine; Visit Provider Family Medicine
DX: E86.0 Dehydration (principal); R10.11 Right upper quadrant pain; E11.65 Type 2 diabetes mellitus with hyperglycemia; M25.50 Pain in unspecified joint; Z90.710 Acquired absence of both cervix and uterus; Z79.4 Long term (current) use of insulin; Z79.84 Long term (current) use of oral hypoglycemic drugs; D72.829 Elevated white blood cell count, unspecified; I10 Essential (primary) hypertension; R06.02 Shortness of breath; R07.9 Chest pain, unspecified
CPT/HCPCS: 36415; 74177; 76705; 80048; 80053; 81003; 82150; 82948; 83605; 83690; 84484; 85025; 87040; 87804; 87811; 93005; 94761; 96361; 96374; 96375; 96376; 99285; G0378; J1100; J1885; J2270; J2405; Q9967

== ENCOUNTER 2024-04-12 22:27 | Emergency (ER) | payer OTHER, SELFPAY ==
--- OUTSIDE RECORDS SUMMARY | 2024-04-12 22:32 | XMS_ITS | CCD ---
Author Organization [facility] Care Team Providers Care Home Builder Name Role Phone Dorys Flannery Unavailable Liliya Fletcher Unavailable MD Jaja Parry Primary Care Provider [phone] HAKEEM Fletcher Attending Provider Hudson Gu Unavailable [...] Unavailable MD Jaja Parry Primary Care Provider [phone] MD Gregg Nassar Attending Provider [phone] MD Jaja Parry Primary Care Provider [phone] MD Gregg Nassar Attending Provider Gregg Nassar Attending Unavailable Jaja Parry Primary Care Unavailable Gregg Nassar Admitting Unavailable Jaja Parry Primary Care Unavailable Gregg Nassar Admitting Unavailable Gregg Nassar Attending Unavailable Allergies Allergy Classification Reported Allergen(s) Allergy Type Date of Onset Reaction(s) Facility Angiotensin Converting Enzyme (ROSS) Inhibitors (1 source) Lisinopril Drug Allergy [address] [place] [address] Cephalosporins (antibiotic) (1 source) Cephalexin Drug Allergy 4 Unknown Reaction [facility] (5 sources) Cephalexin; Translations: [Keflex] Drug Allergy 4 Unknown [facility] Rep[facility] (1 source) Corticosteroids Drug allergy (disorder) 4 [facility] (1 source) DULoxetine Drug Allergy 4 [facility] (4 sources) Cephalexin; Translations: [cephalexin] Drug Allergy 4 Unknown Reaction [facility] (4 sources) Lisinopril; Translations: [lisinopril] Drug Allergy 4 Rash [facility] Medications Current Medications Medication Drug Class(es) Dates [...] dispense #42 (forty two) DX: S83.207A Vit C-S.Drqmev-Izezan-Ytvtj Sd (Tart Thapa) [id number] mg capsule (4 sources) Start: 07-12-2023 Vit C-S.Thapa -Celery-Grape Sd (Tart Thapa) 23-908-18-75-20 mg capsule Active CAP PO July 12, [...] LT 2Von 10-13-2023 XR knee LT 2V [facility] [address] [place] [address] XRay Report Signed Patient: Susanne Clark MR#: [id number] : 1965 Acct:[id number] Age/Sex: 58 / F ADM Date: 10/13/23 Loc: [facility] Room: Type: [facility] Attending Dr: Gregg Nassar MD Copies [...] Foster Jr., D.O.10/13/2023 12:32 PM Dictation Location: [place] [address] Transcribed By: [facility] 10/13/23 1232 Dictated By: Freedom Foster Jr, DO 10/13/23 1231 Signed By: 10/13/23 1232 Normal [facility] MRI KNEE LT WO CONon [...] by: NOHEMY MARCOS Date: 2022-02-22 08:51 Normal [facility] XR knee LT 4V*on 12-12-2021 XR knee LT 4V* [facility] [employer] Other XR knee LT 4V* [facility] [employer] Other XR knee LT 4V* [address] [place] [address] [employer] Other XR knee LT 4V* [place] [address] No rt [employer] Other XR knee LT 4V* XRay Report [employer] Other XR knee LT 4V* Signed [employer] Other XR knee LT 4V* Patient: Susanne Clark MR#: [id number] [employer] Other XR knee LT 4V* [id number] [employer] Other XR knee LT 4V* : 1965 Acct:[id number] [employer] Other XR knee LT 4V* Age/Sex: 56 / F ADM Date: 12/12/21 [employer] Other XR knee LT 4V* Loc: [facility] Room: Type: [facility] [employer] Other XR knee LT 4V* Attending Dr: Liliya PALACIO [employer] Other XR knee LT 4V* Copies to: HAKEEM Lim [employer] Other XR knee LT 4V* Ordering Provider: HAKEEM Lim [employer] Other XR knee LT 4V* Date of Service: 12/12/21 [employer] Other XR knee LT 4V* XR/XR knee LT 4V*: Acute pain of left knee [employer] Other XR knee LT 4V* XR knee LT 4V* 12/12/2021 12:41 PM [employer] Other XR knee LT 4V* SIGNS AND SYMPTOMS: Left knee pain after fall [employer] Other XR knee LT 4V* PROTOCOL: Frontal, lateral, and oblique radiographs of the left knee [employer] Other XR knee LT 4V* COMPARISON: None Nort [employer] Other XR knee LT 4V* FINDINGS: [employer] Other XR knee LT 4V* There is mild narrowing of the patellofemoral joint space with minimal narrowing of the medial [employer] Other XR knee LT 4V* weightbearing joint space. There is no evidence of fracture. No dislocation or subluxation. No [employer] Other XR knee LT 4V* joint effusion. No significant soft tissue swelling. [employer] Other XR knee LT 4V* XR/XR knee LT 4V* [employer] Other XR knee LT 4V* IMPRESSION: [employer] Other XR knee LT 4V* No acute bony injury. [employer] Other XR knee LT 4V* Mild degenerative changes are noted, as above. [employer] Other XR knee LT 4V* Impression dictated by: Bernardo Camacho M.D.12/12/2021 12:59 PM [employer] Other XR knee LT 4V* Dictation Location: [place] [address] [employer] Other XR knee LT 4V* Transcribed By: PWS 12/12/21 1259 [employer] Other XR knee LT 4V* Dictated By: Bernardo Camacho II, MD 12/12/21 1258 [employer] Other XR knee LT 4V* Signed By: [employer] Other XR knee LT 4V* 12/12/21 1258 [employer] Other SARS-CoV-2 (COVID-19) RNA NA A+probe Ql (Resp)on 2021 SARS-CoV-2 (COVID-19) RNA ALYSSA+probe Ql (Unsp spec) Positive [employer] Other T4 [facility] 10-06-2021 T4 [Mass/Vol] 7.2 ug/dL Normal 4.5-12.0 [facility] Comment on above: Performed By: #### T 4LC #### [facility] [address] [place] [address] [address] Chana Ceballos VIT D 25-OH [facility] 2021 Vitamin D, 25-Hydroxy 33.8 ng/mL Normal 30.0-100.0 [facility] Comment on above: Result Comment: Divya min D deficiency has been defined by the [place] of [employer] and an Endocrine Society practice guideline as a level of serum 25-OH vitamin D less than 20 ng/mL (1,2). The Endocrine Society went on to further define vitamin D insufficiency as a level between 21 and 29 ng/mL (2). 1. IOM ([place] of [employer]). 2010. Dietary reference intakes for calcium and D. [place]: The National Academies Press. 2. Sundar MF, Dinorah RIVERA, Kimberly GIBSON et al. Evaluation, treatment, and prevention of vitamin D deficiency: an Endocrine Society clinical practice guideline. JCEM. 2010; 96(7):1911-30. Performed By: #### V ITADLC #### [facility] [address] [place] [address] Dr. Chana Ceballos CBC AUTO DIFFon 10-05-2021 BASO # 0.0 103/ul Normal 0.0-0.1 [facility] Comment on above: Performed By: #### C BC #### [facility] [address] [place] [address] Dr. Chana Ceballos Basophils/100 WBC (Bld) 0.3 % Normal 0.2-2.0 [facility] Comment on above: Performed By: #### C BC #### [facility] [address] [place] [address] Dr. Chana Ceballos EO # 0.2 103/ul Normal 0.0-0.7 [facility] Comment on above: Performed By: #### C BC #### [facility] [address] [place] [address] Dr. Chana Ceballos Eosinophils/100 WBC (Bld) 2.1 % Normal 0.9-7.0 [facility] Comment on above: Performed By: #### C BC #### [facility] [address] [place] [address] Dr. Chana Ceballos Erythrocyte distribution width (RBC) [Ratio] 12.3 % Normal 11.0-15.0 [facility] Comment on above: Performed By: #### C BC #### [facility] [address] [place] [address] Dr. Chana Ceballos Hematocrit (Bld) [Volume fraction] 41.7 % Normal 36.0-48.0 [facility] Comment on above: Performed By: #### C BC #### [facility] [address] [place] [address] Dr. Chana Ceballos Hemoglobin (Bld) [Mass/Vol] 13.6 g/dL Normal 12.0-16.0 [facility] Comment on above: Performed By: #### C BC #### [facility] [address] [place] [address] [address] Chana Ceballos IG # 0.04 10e3/ul Critically high 0.00-0.03 [facility] Comment on above: Performed By: #### C BC #### [facility] [address] [place] [address] [address] Chana Ceballos IG % 0.6 % Critically high 0.0-0.5 [facility] Comment on above: Performed By: #### C BC #### [facility] [address] [place] [address] Dr. Chana Ceballos LYMPH # 1.4 103/ul Normal 1.2-3.8 [facility] Comment on above: Performed By: #### C BC #### [facility] [address] [place] [address] Dr. Chana Ceballos Lymphocytes/100 WBC (Bld) 19.8 % Critically low 20.5-60.0 [facility] Comment on above: Performed By: #### C BC #### [facility] [address] [place] [address] Dr. Chana Ceballos MANUAL DIFF REQ NO Normal [facility] Comment on above: Performed By: #### C BC #### [facility] [address] [place] [address] Dr. Chana Ceballos MCH (RBC) [Entitic mass] 30.3 pg Normal 26.7-34.0 [facility] Comment on above: Performed By: #### C BC #### [facility] [address] [place] [address] Dr. Chana Ceballos MCHC (RBC) [Mass/Vol] 32.6 g/dL Normal 29.9-35.2 [facility] Comment on above: Performed By: #### C BC #### [facility] [address] [place] [address] Dr. Chana Ceballos MCV (RBC) [Entitic vol] 92.9 fL Normal 81.0-99.0 [facility] Comment on above: Performed By: #### C BC #### [facility] [address] [place] [address] Dr. Chana Ceballos MONO # 0.7 103/ul Normal 0.3-0.8 [facility] Comment on above: Performed By: #### C BC #### [facility] [address] [place] [address] Dr. Chana Ceballos Monocytes/100 WBC (Bld) 10.2 % Normal 1.7-12.0 [facility] Comment on above: Performed By: #### C BC #### [facility] [address] [place] [address] Dr. Chana Ceballos NEUT # 4.7 103/ul Normal 1.4-6.5 [facility] Comment on above: Performed By: #### C BC #### [facility] [address] [place] [address] Dr. Chana Ceballos Neutrophils/100 WBC (Bld) 67.0 % Normal 43.0-75.0 [facility] Comment on above: Performed By: #### C BC #### [facility] [address] [place] [address] Dr. Chana Ceballos Platelet mean volume (Bld) [Entitic vol] 11.0 fL Normal 9.5-13.5 [facility] Comment on above: Performed By: #### C BC #### [facility] [address] [place] [address] Dr. Chana Ceballos PLT 212 103/ul Normal 150-450 [facility] Comment on above: Performed By: #### C BC #### [facility] [address] [place] [address] Dr. Chana Ceballos WBC 7.1 103/ul Normal 4.0-11.0 [facility] Comment on above: Performed By: #### C BC #### [facility] [address] [place] [address] Dr. Chana Ceballos FREE T3on 10-05-2021 FREE T3 2.32 pg/mlL Normal 2.18-3.98 [facility] Comment on above: Performed By: #### T SH, CMP, LIPID, FT3 #### [facility] [address] [place], [place] [id number] Dr. Chana Ceballos GLYCOHEMOGLOBIN A1Con 2021 ADA RECOMMENDATION SEE BELOW Normal [facility] Comment on above: Result Comment: ADA RECOMMENDED LIMIT 4.0 - 6.0 ADA THERAPEUTIC TARGET < 7.0 ACTION SUGGESTED > 7.0 Performed By: #### A 1C #### [facility] [address] [place] [address] Dr. Chana Ceballos Glucose [Mass/Vol] 169 mg/dL Normal [facility] Comment on above: Performed By: #### A 1C #### [facility] [address] [place] [address] Dr. Chana Ceballos HbA1c (Bld) [Mass fraction] 7.5 % Critically high 4.5-6.2 [facility] Comment on above: Performed By: #### A 1C #### [facility] [address] [place] [address] Dr. Chana Ceballos LIPID PROFILEon 10-05-2021 CHOL-HDL RATIO NORM SEE BELOW Normal [facility] Comment on above: Result Comment: 3.3 - 4.4 LOW RISK 4.4 - 7.1 AVERAGE RISK 7.1 - 11.0 MODERATE RISK >11.0 HIGH RISK Performed By: #### T SH, CMP, LIPID, FT3 #### [facility] [address] [place] [address] Dr. Chana Ceballos Cholesterol [Mass/Vol] 217 mg/dL Critically high <=200 [facility] Comment on above: Performed By: #### T SH, CMP, LIPID, FT3 #### [facility] [address] [place] [address] Dr. Chana Ceballos Cholesterol in HDL [Mass/Vol] 38 mg/dL Critically low 40-60 [facility] Comment on above: Performed By: #### T SH, CMP, LIPID, FT3 #### [facility] [address] [place] [address] Dr. Chana Ceballos Cholesterol in LDL [Mass/Vol] 137.4 mg/dL Normal [facility] Comment on above: Performed By: #### T SH, CMP, LIPID, FT3 #### [facility] [address] [place] [address] [address] Chana Ceballos Cholesterol.total/Ch olesterol in HDL [Mass ratio] 5.7 {ratio} Normal [facility] Comment on above: Performed By: #### T SH, CMP, LIPID, FT3 #### [facility] [address] [place] [address] [address] Chana Ceballos HDL NORMAL > or = 60 mg/dl - LOW CARDIOVASCULAR RISK <40 mg/dl - HIGH CARDIOVASCULAR RISK Normal [facility] Comment on above: Performed By: #### T SH, CMP, LIPID, FT3 #### [facility] [address] [place] [address] [address] Chana Ceballos LDL CALC NORMAL SEE BELOW Normal [facility] Comment on above: Result Comment: <100 mg/dl OPTIMAL 100 - 129 mg/dl NEAR OR ABOVE OPTIMAL 130 - 159 mg/dl BORDERLINE HIGH 160 - 189 mg/dl HIGH >190 mg/dl VERY HIGH Performed By: #### T SH, CMP, LIPID, FT3 #### [facility] [address] [place] [address] [address] Chana Ceballos Triglyceride [Mass/Vol] 208 mg/dL Critically high <=150 [facility] Comment on above: Performed By: #### T SH, CMP, LIPID, FT3 #### [facility] [address] [address] [address] Chana Ceballos VLDL CALC 41.6 mg/dL Normal [facility] Comment on above: Performed By: #### T SH, CMP, LIPID, FT3 #### [facility] [address] [address] [address] Chana Ceballos PROF 14(COMP METB)on 022 Albumin [Mass/Vol] 4.2 g/dL Normal 3.4-5.0 [facility] Comment on above: Performed By: #### T SH, CMP, LIPID, FT3 #### [facility] [address] [place] [address] [address] Chana Ceballos Albumin/Globulin [Mass ratio] 1.2 {ratio} Normal [facility] Comment on above: Performed By: #### T SH, CMP, LIPID, FT3 #### [facility] [address] [place] [address] Dr. Chana Ceballos ALP [Catalytic activity/Vol] 61 U/L Normal 46-116 [facility] Comment on above: Performed By: #### T SH, CMP, LIPID, FT3 #### [facility] [address] [place] [address] Dr. Chana Ceballos ALT [Catalytic activity/Vol] 29 U/L Normal 14-59 [facility] Comment on above: Performed By: #### T SH, CMP, LIPID, FT3 #### [facility] [address] [place] [address] Dr. Chana Ceballos Anion gap [Moles/Vol] 14.3 mmol/L Normal [facility] Comment on above: Performed By: #### T SH, CMP, LIPID, FT3 #### [facility] [address] [place] [address] Dr. Chana Ceballos AST [Catalytic activity/Vol] 17 U/L Normal 15-37 [facility] Comment on above: Performed By: #### T SH, CMP, LIPID, FT3 #### [facility] [address] [place] [address] Dr. Chana Ceballos Bilirubin [Mass/Vol] 0.2 mg/dL Normal 0.2-1.0 [facility] Comment on above: Performed By: #### T SH, CMP, LIPID, FT3 #### [facility] [address] [place] [address] Dr. Chana Ceballos Calcium [Mass/Vol] 9.0 mg/dL Normal 8.5-10.1 [facility] Comment on above: Performed By: #### T SH, CMP, LIPID, FT3 #### [facility] [address] [place] [address] Dr. Chana Ceballos Chloride [Moles/Vol] 103 mmol/L Normal 98-107 [facility] Comment on above: Performed By: #### T SH, CMP, LIPID, FT3 #### [facility] [address] [place] [address] Dr. Chana Ceballos CO2 [Moles/Vol] 25.1 mmol/L Normal 21.0-32.0 [facility] Comment on above: Performed By: #### T SH, CMP, LIPID, FT3 #### [facility] [address] [address] [address] Chana Ceballos Creatinine [Mass/Vol] 0.93 mg/dL Normal 0.55-1.02 [facility] Comment on above: Performed By: #### T SH, CMP, LIPID, FT3 #### [facility] [address] [address] [address] Chana Ceballos EGFR-AF FINNISH >60 Normal >=60 [facility] Comment on above: Performed By: #### T SH, CMP, LIPID, FT3 #### [facility] [address] [address] [address] Chana Ceballos EGFR-NON AF FINNISH >60 Normal >=60 [facility] Comment on above: Performed By: #### T SH, CMP, LIPID, FT3 #### [facility] [address] [place] [address] [address] Chana Ceballos Globulin (S) [Mass/Vol] 3.4 g/dL Normal [facility] Comment on above: Performed By: #### T SH, CMP, LIPID, FT3 #### [facility] [address] [address] [address] Chana Ceballos Glucose [Mass/Vol] 198 mg/dL Critically high 74-106 [facility] Comment on above: Performed By: #### T SH, CMP, LIPID, FT3 #### [facility] [address] [address] [address] Chana Ceballos Potassium [Moles/Vol] 4.4 mmol/L Normal 3.5-5.1 [facility] Comment on above: Performed By: #### T SH, CMP, LIPID, FT3 #### [facility] [address] [address] [address] Chana Ceballos Protein [Mass/Vol] 7.6 g/dL Normal 6.4-8.2 [facility] Comment on above: Performed By: #### T SH, CMP, LIPID, FT3 #### [facility] [address] [address] [address] Chana Ceballos Sodium [Moles/Vol] 138 mmol/L Normal 136-145 [facility] Comment on above: Performed By: #### T SH, CMP, LIPID, FT3 #### [facility] [address] [place] [address] Dr. Chana Ceballos Urea nitrogen [Mass/Vol] 18.0 mg/dL Normal 7.0-18.0 [facility] Comment on above: Performed By: #### T SH, CMP, LIPID, FT3 #### [facility] [address] [address] [address] Chana Ceballos Urea nitrogen/Creatinine [Mass ratio] 19.4 mg/mg Normal [facility] Comment on above: Performed By: #### T SH, CMP, LIPID, FT3 #### [facility] [address] [address] [address] Chana Ceballos TSHon 10-05-2021 TSH 2.219 uIU/mL Normal 0.358-3.740 [facility] Comment on above: Performed By: #### T SH, CMP, LIPID, FT3 #### [facility] [address] [place] [address] Dr. Chana Ceballos Vital Signs Date Time Vital Sign Value Performing Clinician Facility 07-12-2023 11:25-0400 Diastolic blood pressure 88 mm[Hg] MD Jaja Parry Work Phone: [facility] 07-12-2023 11:25-0400 Heart rate 82 /min MD Jaja Parry Work Phone: [facility] 07-12-2023 11:25-0400 Respiratory rate 16 /min MD Jaja Parry Work Phone: [facility] 07-12-2023 11:25-0400 SaO2% (BldA) [Mass fraction] 99 % MD Jaja Parry Work Phone: [facility] 07-12-2023 11:25-0400 Systolic blood pressure 138 mm[Hg] MD Jaja Parry Work Phone: [facility] 07-12-2023 10:51-0400 Inhaled oxygen flow rate 3 L/min MD Jaja Parry Work Phone: [facility] 07-12-2023 09:56-0400 Body height 167.64 cm MD Jaja Parry Work Phone: [facility] 07-12-2023 09:56-0400 Body weight 108.86 kg MD Jaja Parry Work Phone: [facility] 06-17-2023 08:47-0400 Body height 167.64 cm [facility] 06-17-2023 08:47-0400 Body mass index (BMI) [Ratio] 38.4 kg/m2 [facility] 06-17-2023 08:47-0400 Body weight 108 kg [facility] 05-09-2023 08:58-0400 Body height 167.64 cm [facility] 05-09-2023 08:58-0400 Body mass index (BMI) [Ratio] 38.7 kg/m2 [facility] 05-09-2023 08:58-0400 Body weight 108.94 kg [facility] 07-28-2022 08:15-0400 Body height 167.64 cm Hudson Gu Other [facility] [facility] [employer] Other 07-28-2022 08:15-0400 Body mass index (BMI) [Ratio] 38.73 kg/m2 Hudson Gu Other [facility] [employer] Other 07-28-2022 08:15-0400 Body weight 108.86 kg Hudson Gu Other [employer] Other 12-12-2021 13:05-0400 Body height 167.64 cm Liliya Fletcher Other [employer] Other 12-12-2021 13:05-0400 Body mass index (BMI) [Ratio] 35.51 kg/m2 Liliya Fletcher Other [employer] Other 12-12-2021 13:05-0400 Body temperature 97.9 [degF] Liliya Fletcher Other [employer] Other 12-12-2021 13:05-0400 Body weight 99.79 kg Liliya Fletcher Other [employer] Other 12-12-2021 13:05-0400 Diastolic blood pressure 74 mm[Hg] Liliya Fletcher Other [employer] Other 12-12-2021 13:05-0400 Respiratory rate 18 /min Liliya Fletcher Other [employer] Other 12-12-2021 13:05-0400 SaO2% (BldA) [Mass fraction] 99 % Liliya Fletcher Other [employer] Other 12-12-2021 13:05-0400 Systolic blood pressure 138 mm[Hg] Liliya Fletcher Other [employer] Other 2021 12:30-0400 Body height 167.64 cm Dorys Pughault Other [employer] Other 2021 12:30-0400 Body mass index (BMI) [Ratio] 36.31 kg/m2 Dorys Prudencio Other [employer] Other 2021 12:30-0400 Body temperature 97 [degF] Dorys Prudencio Other [employer] Other 2021 12:30-0400 Body weight 102.06 kg Dorys Flannery Other [facility] [employer] Other Encounters Encounter Date Encounter Type Care Provider Facility Start: 10-13-2023 End: 10-13-2023 ambulatory MD Jaja Parry Work Phone: [facility] Work Phone: Start: 10-13-2023 End: 10-13-2023 Patient encounter procedure MD Jaja Parry Work Phone: [facility] Work Phone: Start: 08-01-2023 End: 08-01-2023 ambulatory MD Jaja Parry Work Phone: [facility] Work Phone: Start: 08-01-2023 End: 08-01-2023 Patient encounter procedure MD Jaja Parry Work Phone: [facility] Work Phone: Start: 07-12-2023 Non-patient / Non-visit MD Linnea Parry Work Phone: [facility] Work Phone: Start: 07-12-2023 End: 07-12-2023 Admission to same day surgery center MD Jaja Parry Work Phone: [facility] Work Phone: Start: 07-12-2023 End: 07-12-2023 ambulatory MD Jaja Parry Work Phone: [facility] Work Phone: Start: 06-30-2023 End: 06-30-2023 Patient encounter procedure MD Jaja Parry Work Phone: [facility] Work Phone: Start: 06-17-2023 End: 06-17-2023 ambulatory [facility] Work Phone: Start: 06-17-2023 End: 06-17-2023 Patient encounter procedure [facility] Work Phone: Start: 05-09-2023 End: 05-09-2023 ambulatory [facility] Work Phone: Start: 05-09-2023 End: 05-09-2023 Patient encounter procedure [facility] Work Phone: Start: 02-02-2023 End: 02-02-2023 ambulatory VALORIE JOSEPHO Not Available Start: 07-28-2022 End: 07-28-2022 ambulatory Hudson Gu Other [employer] Other Start: 07-28-2022 Office outpatient vi sit 25 minutes Hudson Gu [facility] Start: 06-23-2022 End: 06-24-[address] JAJA PARRY . Facility:[facility] Start: 06-14-2022 End: 06-14-2022 ambulatory Hudson Gu Other [employer] Other Start: 06-14-2022 Telephone encounter Hudson Gu G [facility] Start: 03-09-2022 End: 04-08-2022 ambulatory HUDSON GU Facility:[facility] Start: 02-22-2022 End: 02-23-2022 ambulatory LILIYA HUTTON Facility:[facility] Start: 12-12-2021 Office outpatient vi sit 15 minutes Liliya Fletcher [facility] Start: 12-12-2021 End: 12-12-2021 ambulatory MD Jaja Parry Work Phone: [employer] Other Start: 12-12-2021 End: 12-12-2021 Patient encounter procedure MD Jaja Parry Work Phone: [facility] Start: 2021 End: 2021 ambulatory Dorys Pughault Other [facility] [employer] Other Start: 2021 Office outpatient ne w 20 minutes Dorys Flannery [facility] Start: 10-07-2021 Encounter for genera l adult medical examination without abnormal findings DR JAJA PARRY . [facility] Start: 10-05-2021 End: 10-06-[address] JAJA [...] left knee XR knee LT 2V Fir [facility] Start: 10-13-2023 XR Knee - left 2 Views [facility] Start: 07-12-2023 [facility] Patient Education Know your Meds Felter Non Diagnostic Block [facility] Work Phone: Patient referral [facility] Work Phone: Payers Date Payer Category Payer Self-pay 2012 Unknown [id number] 1965 Unknown [id number] [id number] 1965 Unknown [id number] 2.16.84 [id number] 1965 Unknown [id number] 2.16.84 [id number] 1965 Unknown [id number] 2.16.84 [id number] 1965 Unknown [id number] 1961 Blue [employer] Blue Shield [id number] Unknown [place]/BS [id number] Unknown [id number] 2.16.8 [id number] Unknown [id number] 2.16.8 [id number] Social History Date Type Detail Facility Sex Assigned At [employer] Other Start: 1965 Sex Assigned At Female [facility] Goals Date Patient Goal Desired Activity /State Clinical Notes 2021 to 07-12-2023 Note Date & Type Note Facility 07-12-2023 Procedure note [facility] 05-09-2023 Evaluation note Authored May 09, 2023 9:1 6am We performed a 4/1cc Marcain e / Kenalog cortisone injection into the knee joint under sterile technique. Patient tolerated the injection well without adverse reaction. Patient can follow up as needed. Note scribed by ESEQUIEL Valle, reviewed and amended by myself Hudson Gu D.O. [facility] Work Phone: [phone] 388-762906-14-2023 Evaluation note* Encounter Date Diagnosis Assessment Notes [...] tolerated the injection well without adverse reaction. [employer] Other 05-01-2023 Evaluation note* Encounter Date Diagnosis Assessment Notes Treatment Notes Treatment Clinical Notes June, Acute meniscal tear of left knee, initial encounter (ICD-10 - S83.207A) [employer] Other 10-29-2022 Evaluation note* Encounter Date Diagnosis [...] Nov, Other Contusion mater ial was printed [employer] Other 08-28-2022 Evaluation note* Encounter Date Diagnosis [...] COVID POSITIVE education handout discharge instructions. given. [employer] Other Evaluation noteNo assessment information available [facility] Work Phone: Evaluation note* Author Mare Ramirez [facility] Authored May 09, 2023 9:1 6am We performed a 4/1cc Marcain e / Kenalog cortisone injection into the knee joint under sterile technique. Patient tolerated the injection well without adverse reaction. Patient can follow up as needed. Note scribed by ESEQUIEL Valle, reviewed and amended by myself Hudson Gu D.O. [facility] Work Phone: Evaluation note* Diagnosis Onset Date Resolution Status Chronic pain acute Knee pain acute Osteoarthritis of left knee acute Chronic pain acute Contusion of left knee acute Knee pain acute Osteoarthritis of left knee acute [facility] Work Phone: History general Narrative - Reported* Type Description Date Medical History diabetes Surgical History c-sections - 2 Surgical History oophorectomy Surgical History hysterectomy [employer] Other Hissigx general Narrative - Reported* Type Description Date Medical History diabetes Medical History high cholesterol Surgical History c-sections - 2 Surgical History oophorectomy Surgical History hysterectomy [employer] Other Chief Complaint and Reason for Visit [...] and content) DATE CREATED AUTHOR 06/27/2022 [facility] DATE CREATED AUTHOR AUTHOR'S ORGANIZ ATION 02/03/2023 [facility] DATE CREATED AUTHOR AUTHOR'S ORGANIZ ATION 10/26/2023 [facility] FOR RECORDS PERTAINING TO PATIENTS [...] BE BASED ON THE PRIMARY CLINICAL RECORDS. [facility] [employer] [facility]. provides no warranty or guarantee of the accuracy or completeness of information in this document.
[2024-04-12 22:38] VITALS: BP 179/94; PULSE 81; TEMP 36.7; O2SAT 100; BMI 38.7
--- NOTE | 2024-04-12 22:51 | ED_ITS ---
HPI - Abdominal Pain General Chief Complaint: Abdominal Pain Stated Complaint: ABDOMINAL PAIN, RIGHT SIDE Time Seen by Provider: 04/12/24 22:32 History of Present Illness HPI narrative: This 58-year-old female who was recently admitted for abdominal pain and seen for chest pain several weeks ago presents for evaluation of recurrence of her right-sided abdominal pain. She states she has pain in the right lower quadrant that radiates up to the right upper quadrant associated with nausea. She states her glucose has been elevated. I asked her why and she states it is because I like food. Today she had sausage and eggs for breakfast. A salad and then 2 hard-boiled eggs for dinner. She is nauseated but has not vomited or had any diarrhea. She denies any fever. She denies any chest pain or shortness of breath. She is dry heaving upon arrival. Related Data Home Medications ?Medication ?Instructions ?Recorded ?Confirmed blood sugar diagnostic (OneTouch 01/13/23 01/13/23 Verio test strips) flash glucose scanning reader 01/13/23 01/13/23 (FreeStyle Kirsten 2 [place]) flash glucose sensor (FreeStyle 01/13/23 01/13/23 Kirsten 2 Sensor kit) nabumetone 500 mg tablet 500 mg PO BID 01/13/23 04/12/24 simvastatin 20 mg tablet 20 mg PO DAILY 01/13/23 04/12/24 insulin glargine 100 unit/mL (3 20 unit subcut DAILY 03/21/24 04/12/24 mL) subcutaneous pen (Basaglar KwikPen U-100 Insulin) insulin lispro 100 unit/mL 1 sliding scale dose subcut 03/21/24 04/12/24 [facility] USE[facility] Insulin lispro) metoprolol tartrate 50 mg tablet 50 mg PO Q12H 03/22/24 04/12/24 amoxicillin 875 mg-potassium 1 tab PO Q12H 04/12/24 04/12/24 clavulanate 125 mg tablet triamcinolone acetonide 0.1 % 1 applic topical TID 04/12/24 04/12/24 topical cream Previous Rx's ?Medication ?Instructions ?Recorded sucralfate 1 gram tablet (Carafate) 1 g PO Q6H PRN abdominal pain #12 03/21/24 tabs Allergies Allergy/AdvReac Type Severity Reaction Status Date / Time cephalexin (From Keflex) Allergy Intermediate Unknown Verified 04/12/24 22:42 lisinopril Allergy Intermediate Unknown Verified 04/12/24 22:42 Review of Systems ROS Status of ROS 10 or more systems reviewed and unremark able except as noted in history and below [facility] Medical History (Updated 04/13/24 @ 01:09 by Gabriela Dunham MD) Abdominal pain ?R10.9 - Unspecified abdominal pain (ICD-10) Surgical History (Updated 03/22/24 @ 17:53 by Mary Woo) H/O oophorectomy H/O: hysterectomy ?Z90.710 - Acquired absence of both cervix and uterus (ICD-10) Social History Highest level of school completed/degree received: some college, no degree Little interest or pleasure in doing things: not at all Feeling down, depressed, or hopeless: not at all Exam Narrative Exam Narrative: Vital signs and Nursing Notes reviewed: Patient is afebrile with a normal pulse, blood pressure is elevated at 179/94, she is not hypoxic with pulse ox of 100% on room air General: Awake, alert, oriented, obese female, she is standing over the garbage can with dry heaves, no respiratory distress, no active vomiting HEENT: Normocephalic atraumatic, mucous membranes are moist and pink, eyes are clear, normal conjunctiva, vision is grossly intact, no scleral icterus Chest: Lungs are clear to auscultation with good air entry, there is no wheezing rhonchi or rales appreciated no accessory muscle use, patient is speaking in complete sentences-no chest wall tenderness to palpation CVS: Regular rate and rhythm S1-S2, no murmurs rubs or gallops, pulses are brisk and equal bilaterally ABD: Obese, soft, diffusely tender, bowel sounds are normal patient's body habitus precludes evaluation of her aorta however a CT of the abdomen was recently performed that was negative Extremities: Moving all extremities, no lower extremity tenderness or swelling noted, negative Homans' sign, pulses are brisk and equal bilaterally Skin: Normal in appearance without rash,pallor, petechiae or purpura Neuro: No focal deficits Constitutional Vital Signs, click to edit/add: Last Vital Signs Temp 98.0 F 04/12/24 22:38 Pulse 81 04/12/24 22:38 Resp 20 04/12/24 22:38 BP 179/94 H 04/12/24 22:38 Pulse Ox 100 04/12/24 22:38 O2 Del Method Room Air 04/12/24 22:38 Course Vital Signs Vital signs: Vital Signs Temperature 98.0 F 04/12/24 22:38 Pulse Rate 81 04/12/24 22:38 Respiratory Rate 20 04/12/24 22:38 Blood Pressure 179/94 H 04/12/24 22:38 Pulse Oximetry 100 04/12/24 22:38 Oxygen Delivery Method Room Air 04/12/24 22:38 Temperature 98.0 F 04/12/24 22:38 Pulse Rate 81 04/12/24 22:38 Respiratory Rate 20 04/12/24 22:38 Blood Pressure 179/94 H 04/12/24 22:38 Pulse Oximetry 100 04/12/24 22:38 Oxygen Delivery Method Room Air 04/12/24 22:38 MDM - Abdominal Pain MDM Narrative Medical decision making narrative: This 58-year-old female who was admitted to this facility recently for abdominal pain presents for evaluation of ongoing abdominal pain. It is on the right side and radiates up from her right lower quadrant into her right upper quadrant and across the middle of her abdomen. Associated with nausea and dry heaves. She is not having any vomiting or diarrhea. She has not had a fever. She recently had a CT scan of the abdomen pelvis which is included in the body of this report that did not show any acute findings. She admits that her glucose is running high because she likes to eat. Her vital signs are stable. She was dry heaving upon arrival and an IV was placed and she was given IV fluid Zofran Toradol and Bentyl. Routine labs were reviewed. She has a normal white count and hemoglobin. Her electrolytes and liver function tests are normal with the exception of a glucose of 345. CO2 is normal at 22.8. I do not have any concerns that she is in DKA. Her lipase is normal at 61. Urine is negative for infection but she is spilling glucose with her glucose being over 300. On reevaluation she states that her nausea is somewhat improved but she has ongoing pain and something needs to be done . I have ordered a abdominal series x-ray and explained to her that I will give her 1 dose of morphine. Her abd series xray shows a nonspecific bowel gas pattern with a large amount of retained stool consistent with constipation. Chest x-ray portion is clear of infiltrate within normal cardiac size and normal cardiac borders. She was given a dose of Colace in the emergency department. I had a lengthy discussion with her about her abdominal pain and bowel habits. She states she did take a laxative a week or so ago because she felt constipated. I explained to her that she should likely be on something on a daily basis due to her history of diabetes and potential for gastroparesis related to this. I suggest that she take daily MiraLAX or Metamucil and drink plenty of fluid. She is agreeable to this. She will be given a prescription for Colace to use until she can get her MiraLAX or Metamucil regimen established. Medical Records Attestation: I reviewed the patient's medical records. Medical records narrative: The [address] [address] Patient Name: RJ PINZON MRN: [id number] date: 1965 Sex: F Assigned Patient Location: ER Current Patient Location: ER Accession/Order Number: [id number] Exam Date: 03/22/2024 15:35 Report Date: 03/22/2024 16:10 At the request of: GT MIRANDA Procedure: CT abdomen pelvis w con EXAMINATION: CT abdomen pelvis w con HISTORY: abd pain COMPARISON: No relevant comparison available. TECHNIQUE: CT images were created with IV contrast. Axial, Coronal, and Sagittal images. Dose reduction techniques were achieved by using automated exposure control and/or adjustment of mA and/or kV according to patient size and/or use of iterative reconstruction technique. FINDINGS: LUNG BASES: No visible pulmonary or pleural disease. LIVER: Diffuse hypoattenuation consistent with hepatic steatosis BILIARY: No visible dilatation or calcification. PANCREAS: No lesion, fluid collection, ductal dilatation, or atrophy. SPLEEN: No enlargement or focal lesion. ADRENALS: No mass or enlargement. KIDNEYS: No mass, obstruction, or calcification. BOWEL/MESENTERY: No visible mass, obstruction, or bowel wall thickening. AORTA/VASCULAR: No aortic aneurysm. Mild calcific atherosclerosis RETROPERITONEUM: No mass or adenopathy. LYMPH NODES: No adenopathy. URINARY BLADDER: No visible focal wall thickening, lesion, or calculus. PELVIC ORGANS: Hysterectomy ABDOMINAL WALL: No mass or hernia. BONES: No bony lesion or fracture. OTHER: Negative. IMPRESSION: No acute intraperitoneal abnormality. Electronically authenticated by: MONSE DAWSON Date: 03/22/2024 16:10 Lab Data Labs: Lab Results 04/12/24 04/13/24 Range/Units 23:25 00:45 WBC 7.4 (4.0-11.0) 10^3/uL RBC 4.54 (4.20-5.40) 10^6/uL Hgb 13.7 (12.0-16.0) g/dL Hct 39.7 (36.0-48.0) % MCV 87.4 (81.0-99.0) fL MCH 30.2 (26.7-34.0) pg MCHC 34.5 (29.9-35.2) g/dL RDW 12.6 (11.0-15.0) % Plt Count 169 (150-450) 10^3/uL MPV 11.9 (9.5-13.5) fL Neut % (Auto) 80.0 H (43.0-75.0) % Lymph % (Auto) 10.8 L (20.5-60.0) % [place] % (Auto) 6.5 (1.7-12.0) % Eos % (Auto) 2.2 (0.9-7.0) % Baso % (Auto) 0.1 L (0.2-2.0) % Neut # (Auto) 5.9 (1.4-6.5) 10^3/uL Lymph # (Auto) 0.8 L (1.2-3.8) 10^3/uL [place] # (Auto) 0.5 (0.3-0.8) 10^3/uL Eos # (Auto) 0.2 (0.0-0.7) 10^3/uL Baso # (Auto) 0.0 (0.0-0.1) 10^3/uL Abs Immat Gran (auto) 0.03 (0.00-0.03) 10^3/uL Imm/Tot Granulo (auto) 0.4 (0.0-0.5) % Sodium 133 L (136-145) mmol/L Potassium 4.5 (3.5-5.1) mmol/L Chloride 99 (98-107) mmol/L Carbon Dioxide 22.8 (21.0-32.0) mmol/L Anion Gap 15.7 BUN 16.0 (7.0-18.0) mg/dL Creatinine 1.00 (0.55-1.02) mg/dL Est GFR ( Amer) >60 (>=60 mL/min/1.73m^2) Est GFR (Non-Af Amer) 57 L (>=60 mL/min/1.73m^2) BUN/Creatinine Ratio 16.0 Glucose 345 H (74-106) mg/dL Calcium 8.7 (8.5-10.1) mg/dL Total Bilirubin 0.7 (0.2-1.0) mg/dL AST 40 H (15-37) U/L ALT 31 (14-59) U/L Alkaline Phosphatase 72 (46-116) U/L Total Protein 7.1 (6.4-8.2) g/dL Albumin 3.8 (3.4-5.0) g/dL Globulin 3.3 g/dL Albumin/Globulin Ratio 1.2 Lipase 61.0 (16.0-77.0) U/L Urine Color Lt. yellow (YELLOW) Urine Clarity Clear (CLEAR) Urine pH 5.5 (5.0-9.0) Ur Specific [place] 1.020 (1.005-1.025) Urine Protein Negative (NEG/TRACE) mg/dL Urine Glucose (UA) >=1000 A (NEGATIVE) mg/dL Urine Ketones Negative (NEGATIVE) mg/dL Urine Occult Blood Negative (NEGATIVE) Urine Nitrite Negative (NEGATIVE) Urine Bilirubin Negative (NEGATIVE) Urine Urobilinogen 0.2 (0.2-1.0) EU/dL Ur Leukocyte Esterase Negative (NEGATIVE) Urine RBC None seen (0-2) #/HPF Urine WBC 0-2 A (NONE SEEN) #/HPF Ur Squamous Epith Cells Few A (NONE/RARE) #/LPF Urine Crystals None seen (None Seen) #/HPF Urine Bacteria Trace A (NONE SEEN) #/HPF Urine Casts None seen (NONE SEEN) #/LPF Urine Mucus None seen (NONE SEEN) Ur Culture Indicated? No Discharge Plan Discharge Chief Complaint: Abdominal Pain Clinical Impression: Abdominal pain, Constipation Patient Disposition: Home, Self-Care Time of Disposition Decision: 01:08 Condition: Good Prescriptions / Home Meds: No Action (DME) OneTouch Verio test strips Strip MISCELLANEOUS (DME) FreeStyle Kirsten 2 Sensor Kit MISCELLANEOUS (DME) FreeStyle Kirsten 2 [place] Misc MISCELLANEOUS nabumetone 500 mg tablet 500 mg PO BID simvastatin 20 mg tablet 20 mg PO DAILY insulin glargine [Basaglar KwikPen U-100 Insulin] 100 unit/mL (3 mL) insulin pen 20 unit subcut DAILY insulin lispro [Admelog SoloStar U-100 Insulin] 100 unit/mL insulin pen 1 sliding scale dose subcut USEASDIRECTD sucralfate [Carafate] 1 gram tablet 1 g PO Q6H PRN (Reason: abdominal pain) Qty: 12 0RF metoprolol tartrate 50 mg tablet 50 mg PO Q12H amoxicillin-pot clavulanate 875-125 mg tablet 1 tab PO Q12H triamcinolone acetonide 0.1 % cream 1 applic TOPICAL TID Print Language: Libyan Instructions: Constipation (ED), Abdominal Pain (ED) Referrals: Florencio Parry MD [Primary Care Provider] - 1 week
[2024-04-12 23:36] LABS: Basophils Percent Auto 0.1 % (0.2-2.0); Eosinophils Absolute Auto 0.2 10^3/uL (0.0-0.7); Eosinophils Percent Auto 2.2 % (0.9-7.0); Hematocrit 39.7 % (36.0-48.0); Hemoglobin 13.7 g/dL (12.0-16.0); Immature Granulocytes Abs Auto 0.03 10^3/uL (0.00-0.03); Immature Granulocytes Pct Auto 0.4 % (0.0-0.5); Lymphocytes Absolute Auto 0.8 10^3/uL (1.2-3.8); Lymphocytes Percent Auto 10.8 % (20.5-60.0); Mean Corpuscular HGB Conc 34.5 g/dL (29.9-35.2); Mean Corpuscular Hemoglobin 30.2 pg (26.7-34.0); Mean Corpuscular Volume 87.4 fL (81.0-99.0); Mean Platelet Volume 11.9 fL (9.5-13.5); Monocytes Absolute Auto 0.5 10^3/uL (0.3-0.8); Monocytes Percent Auto 6.5 % (1.7-12.0); Neutrophils Absolute Auto 5.9 10^3/uL (1.4-6.5); Platelet Count 169 10^3/uL (150-450); Red Blood Count 4.54 10^6/uL (4.20-5.40); Red Cell Distribution Width 12.6 % (11.0-15.0); White Blood Count 7.4 10^3/uL (4.0-11.0)
[2024-04-12] MEDS: 0.9 % SODIUM CHLORIDE 1,000 ML 1000 ML IV (23:43)
[2024-04-12] MEDS: DICYCLOMINE HCL 20 MG/2 ML VIAL IM (23:44)
[2024-04-12] MEDS: ONDANSETRON PF 4 MG/2 ML VIAL IV (23:44)
[2024-04-12] MEDS: KETOROLAC TROMETHAMINE 30 MG/ML VIAL IVP (23:44)
[2024-04-12 23:50] LABS: Alanine Aminotransferase 31 U/L (14-59); Albumin Globulin Ratio 1.2; Albumin Level 3.8 g/dL (3.4-5.0); Alkaline Phosphatase 72 U/L (46-116); Anion Gap 15.7; Aspartate Amino Transferase 40 U/L (15-37); Bilirubin Total 0.7 mg/dL (0.2-1.0); Calcium 8.7 mg/dL (8.5-10.1); Carbon Dioxide 22.8 mmol/L (21.0-32.0); Chloride 99 mmol/L (98-107); Estimated GFR (African America >60 (>=60 mL/min/1.73m^2); Estimated GFR (Non-African Ame 57 (>=60 mL/min/1.73m^2); Globulin 3.3 g/dL; Glucose 345 mg/dL (74-106); Potassium 4.5 mmol/L (3.5-5.1); Sodium 133 mmol/L (136-145); Total Protein 7.1 g/dL (6.4-8.2)
[2024-04-13] MEDS: MORPHINE SULFATE 4 MG/ML VIAL IV (00:35)
[2024-04-13 00:54] LABS: Bilirubin Urine NEGATIVE (NEGATIVE); Blood Urine NEGATIVE (NEGATIVE); Clarity Urine CLEAR (CLEAR); Color Urine LT. YELLOW (YELLOW); Glucose Urine UA >=1000 mg/dL (NEGATIVE); Ketones Urine NEGATIVE (NEGATIVE); Leukocyte Esterase Urine NEGATIVE (NEGATIVE); Nitrite Urine NEGATIVE (NEGATIVE); Protein Urine NEGATIVE (NEG/TRACE); Urobilinogen Urine 0.2 EU/dL (0.2-1.0); pH Urine 5.5 (5.0-9.0)
[2024-04-13 00:58] LABS: Bacteria Urine TRACE #/HPF (NONE SEEN); Cast Seen? NONE SEEN #/LPF (NONE SEEN); Crystals Seen? None Seen #/HPF (None Seen); Mucus Urine NONE SEEN (NONE SEEN); RBC Urine NONE SEEN #/HPF (0-2); Squamous Epithelial Cell Urine FEW #/LPF (NONE/RARE); Urine Culture Indicated NO; WBC Urine 0-2 #/HPF (NONE SEEN)
[2024-04-13] MEDS: DOCUSATE SODIUM 100 MG CAPSULE PO (01:28)
[2024-04-13 01:31] VITALS: BP 160/88
== END 2024-04-13 01:34 | disposition home or self-care (01) ==
PROVIDERS: Emergency Provider Emergency Medicine; PCP Family Medicine
DX: K59.00 Constipation, unspecified (principal); R10.9 Unspecified abdominal pain; Z90.710 Acquired absence of both cervix and uterus; E11.9 Type 2 diabetes mellitus without complications; Z79.4 Long term (current) use of insulin
CPT/HCPCS: 36415; 74022; 80053; 81001; 83690; 85025; 96372; 96374; 96375; 99284; J0500; J1885; J2270; J2405

== ENCOUNTER 2024-04-13 13:37 | Emergency (ER) | payer OTHER, SELFPAY ==
--- OUTSIDE RECORDS SUMMARY | 2024-04-13 14:01 | XMS_ITS | CCD ---
Author Organization [facility] Care Team Providers Care Monitoring Engineer Name Role Phone Dorys Flannery Unavailable Liliya Fletcher Unavailable MD Jaja Parry Primary Care Provider [phone] HAKEEM Fletcher Attending Provider Hudson Gu Unavailable [...] Unavailable MD Jaja Parry Primary Care Provider [phone] MD Gregg Nassar Attending Provider [phone] MD Jaja Parry Primary Care Provider [phone] MD Gregg Nassar Attending Provider Gregg Nassar Attending Unavailable Jaja Parry Primary Care Unavailable Gregg Nassar Admitting Unavailable Jaja Parry Primary Care Unavailable Gregg Nassar Admitting Unavailable Gregg Nassar Attending Unavailable Allergies Allergy Classification Reported Allergen(s) Allergy Type Date of Onset Reaction(s) Facility Angiotensin Converting Enzyme (ROSS) Inhibitors (1 source) Lisinopril Drug Allergy [address] [place] [address] Cephalosporins (antibiotic) (1 source) Cephalexin Drug Allergy 4 Unknown Reaction [facility] (5 sources) Cephalexin; Translations: [Keflex] Drug Allergy 4 Unknown [facility] (1 source) Corticosteroids Drug allergy (disorder) 4 [facility] (1 source) DULoxetine Drug Allergy 4 [facility] (4 sources) Cephalexin; Translations: [cephalexin] Drug Allergy 4 Unknown Reaction [facility] (4 sources) Lisinopril; Translations: [lisinopril] Drug Allergy 4 Rash [facility] Medications Current Medications Medication Drug Class(es) [...] dispense #42 (forty two) DX: S83.207A Vit C-S.Cqxvow-Mpwwxi-Qwnjv Sd (Tart Thapa) 03-523-61-75-20 mg capsule (4 sources) Start: 07-12-2023 Vit C-S.Thapa -Celery-Grape Sd (Tart Thapa) 17-220-49-75-20 mg capsule Active CAP PO July 12, [...] LT 2Von 10-13-2023 XR knee LT 2V [facility] [address] [place] [address] XRay Report Signed Patient: Susanne Clark MR#: [id number] : 1965 Acct:[id number] Age/Sex: 58 / F ADM Date: 10/13/23 Loc: [facility] Room: Type: [facility] Attending Dr: Gregg Nassar MD Copies to: [...] Foster Jr., D.O.10/13/2023 12:32 PM Dictation Location: [place] [address] Transcribed By: [facility] 10/13/23 1232 Dictated By: Freedom Foster Jr, DO 10/13/23 1231 Signed By: 10/13/23 1232 Normal [facility] MRI KNEE LT WO CONon [...] by: NOHEMY MARCOS Date: 2022-02-22 08:51 Normal [facility] XR knee LT 4V*on 12-12-2021 XR knee LT 4V* [facility] [email or web address] Other XR knee LT 4V* [facility] [email or web address] Other XR knee LT 4V* [address] [place] [address] [email or web address] Other XR knee LT 4V* [place] [address] No rt [email or web address] Other XR knee LT 4V* XRay Report [employer] Other XR knee LT 4V* Signed [employer] Other XR knee LT 4V* Patient: Susanne Clark MR#: [id number] [email or web address] Other XR knee LT 4V* [id number] [employer] Other XR knee LT 4V* : 1965 Acct:[id number] [email or web address] Other XR knee LT 4V* Age/Sex: 56 / F ADM Date: 12/12/21 [email or web address] Other XR knee LT 4V* Loc: [facility] Room: Type: [facility] [email or web address] Other XR knee LT 4V* Attending Dr: Liliya PALACIO [email or web address] Other XR knee LT 4V* Copies to: HAKEEM Lim [email or web address] Other XR knee LT 4V* Ordering Provider: HAKEEM Lim [email or web address] Other XR knee LT 4V* Date of Service: 12/12/21 [email or web address] Other XR knee LT 4V* XR/XR knee LT 4V*: Acute pain of left knee [email or web address] Other XR knee LT 4V* XR knee LT 4V* 12/12/2021 12:41 PM [email or web address] Other XR knee LT 4V* SIGNS AND SYMPTOMS: Left knee pain after fall [email or web address] Other XR knee LT 4V* PROTOCOL: Frontal, lateral, and oblique radiographs of the left knee [email or web address] Other XR knee LT 4V* COMPARISON: None Nort [email or web address] Other XR knee LT 4V* FINDINGS: [employer] Other XR knee LT 4V* There is mild narrowing of the patellofemoral joint space with minimal narrowing of the medial [email or web address] Other XR knee LT 4V* weightbearing joint space. There is no evidence of fracture. No dislocation or subluxation. No [email or web address] Other XR knee LT 4V* joint effusion. No significant soft tissue swelling. [email or web address] Other XR knee LT 4V* XR/XR knee LT 4V* [email or web address] Other XR knee LT 4V* IMPRESSION: Bundle Other XR knee LT 4V* No acute bony injury. [email or web address] Other XR knee LT 4V* Mild degenerative changes are noted, as above. [email or web address] Other XR knee LT 4V* Impression dictated by: Bernardo Camacho M.D.12/12/2021 12:59 PM [email or web address] Other XR knee LT 4V* Dictation Location: [place] [address] [email or web address] Other XR knee LT 4V* Transcribed By: PWS 12/12/21 1259 [email or web address] Other XR knee LT 4V* Dictated By: Bernardo Camacho II, MD 12/12/21 1258 [email or web address] Other XR knee LT 4V* Signed By: [employer] Other XR knee LT 4V* 12/12/21 1253 [facility] Other SARS-CoV-2 (COVID-19) RNA NA A+probe Ql (Resp)on 2021 SARS-CoV-2 (COVID-19) RNA ALYSSA+probe Ql (Unsp spec) Positive [email or web address] Other T4 [facility] 10-06-2021 T4 [Mass/Vol] 7.2 ug/dL Normal 4.5-12.0 [facility] Comment on above: Performed By: #### T 4LC #### [facility] [address] [place] [address] [address] Chana Ceballos VIT D 25-OH [facility] 2021 Vitamin D, 25-Hydroxy 33.8 ng/mL Normal 30.0-100.0 [facility] Comment on above: Result Comment: Divya min D deficiency has been defined by the [place] of Medicine and an Endocrine Society practice guideline as a level of serum 25-OH vitamin D less than 20 ng/mL (1,2). The Endocrine Society went on to further define vitamin D insufficiency as a level between 21 and 29 ng/mL (2). 1. IOM ([place] of Medicine). 2010. Dietary reference intakes for calcium and D. [place]: The National Academies Press. 2. Sundar MF, Dinorah RIVERA, Kimberly GIBSON et al. Evaluation, treatment, and prevention of vitamin D deficiency: an Endocrine Society clinical practice guideline. JCEM. 2010; 96(7):1911-30. Performed By: #### V ITADLC #### [facility] [address] [place] [address] Dr. Chana Ceballos CBC AUTO DIFFon 10-05-2021 BASO # 0.0 103/ul Normal 0.0-0.1 [facility] Comment on above: Performed By: #### C BC #### [facility] [address] [place] [address] Dr. Chana Ceballos Basophils/100 WBC (Bld) 0.3 % Normal 0.2-2.0 [facility] Comment on above: Performed By: #### C BC #### [facility] [address] [place] [address] Dr. Chana Ceballos EO # 0.2 103/ul Normal 0.0-0.7 [facility] Comment on above: Performed By: #### C BC #### [facility] [address] [place] [address] Dr. Chana Ceballos Eosinophils/100 WBC (Bld) 2.1 % Normal 0.9-7.0 [facility] Comment on above: Performed By: #### C BC #### [facility] [address] [place] [address] Dr. Chana Ceballos Erythrocyte distribution width (RBC) [Ratio] 12.3 % Normal 11.0-15.0 [facility] Comment on above: Performed By: #### C BC #### [facility] [address] [place] [address] Dr. Chaan Ceballos Hematocrit (Bld) [Volume fraction] 41.7 % Normal 36.0-48.0 [facility] Comment on above: Performed By: #### C BC #### [facility] [address] [place] [address] Dr. Chana Ceballos Hemoglobin (Bld) [Mass/Vol] 13.6 g/dL Normal 12.0-16.0 [facility] Comment on above: Performed By: #### C BC #### [facility] [address] [place] [address] [address] Chana Ceballos IG # 0.04 10e3/ul Critically high 0.00-0.03 [facility] Comment on above: Performed By: #### C BC #### [facility] [address] [place] [address] [address] Chana Ceballos IG % 0.6 % Critically high 0.0-0.5 [facility] Comment on above: Performed By: #### C BC #### [facility] [address] [place] [address] Dr. Chana Ceballos LYMPH # 1.4 103/ul Normal 1.2-3.8 [facility] Comment on above: Performed By: #### C BC #### [facility] [address] [place] [address] Dr. Chana Ceballos Lymphocytes/100 WBC (Bld) 19.8 % Critically low 20.5-60.0 [facility] Comment on above: Performed By: #### C BC #### [facility] [address] [place] [address] Dr. Chana Ceballos MANUAL DIFF REQ NO Normal [facility] Comment on above: Performed By: #### C BC #### [facility] [address] [place] [address] Dr. Chana Ceballos MCH (RBC) [Entitic mass] 30.3 pg Normal 26.7-34.0 [facility] Comment on above: Performed By: #### C BC #### [facility] [address] [place] [address] Dr. Chana Ceballos MCHC (RBC) [Mass/Vol] 32.6 g/dL Normal 29.9-35.2 [facility] Comment on above: Performed By: #### C BC #### [facility] [address] [place] [address] Dr. Chana Ceballos MCV (RBC) [Entitic vol] 92.9 fL Normal 81.0-99.0 [facility] Comment on above: Performed By: #### C BC #### [facility] [address] [place] [address] Dr. Chana Ceballos MONO # 0.7 103/ul Normal 0.3-0.8 [facility] Comment on above: Performed By: #### C BC #### [facility] [address] [place] [address] Dr. Chana Ceballos Monocytes/100 WBC (Bld) 10.2 % Normal 1.7-12.0 [facility] Comment on above: Performed By: #### C BC #### [facility] [address] [place] [address] Dr. Chana Ceballos NEUT # 4.7 103/ul Normal 1.4-6.5 [facility] Comment on above: Performed By: #### C BC #### [facility] [address] [place] [address] Dr. Chana Ceballos Neutrophils/100 WBC (Bld) 67.0 % Normal 43.0-75.0 [facility] Comment on above: Performed By: #### C BC #### [facility] [address] [place] [address] Dr. Chana Ceballos Platelet mean volume (Bld) [Entitic vol] 11.0 fL Normal 9.5-13.5 [facility] Comment on above: Performed By: #### C BC #### [facility] [address] [place] [address] Dr. Chana Ceballos PLT 212 103/ul Normal 150-450 [facility] Comment on above: Performed By: #### C BC #### [facility] [address] [place] [address] Dr. Chana Ceballos WBC 7.1 103/ul Normal 4.0-11.0 [facility] Comment on above: Performed By: #### C BC #### [facility] [address] [place] [address] Dr. Chana Ceballos FREE T3on 10-05-2021 FREE T3 2.32 pg/mlL Normal 2.18-3.98 [facility] Comment on above: Performed By: #### T SH, CMP, LIPID, FT3 #### [facility] [address] [place], [place] [id number] Dr. Chana Ceballos GLYCOHEMOGLOBIN A1Con 2021 ADA RECOMMENDATION SEE BELOW Normal [facility] Comment on above: Result Comment: ADA RECOMMENDED LIMIT 4.0 - 6.0 ADA THERAPEUTIC TARGET < 7.0 ACTION SUGGESTED > 7.0 Performed By: #### A 1C #### [facility] [address] [place] [address] Dr. Chana Ceballos Glucose [Mass/Vol] 169 mg/dL Normal [facility] Comment on above: Performed By: #### A 1C #### [facility] [address] [place] [address] Dr. Chana Ceballos HbA1c (Bld) [Mass fraction] 7.5 % Critically high 4.5-6.2 [facility] Comment on above: Performed By: #### A 1C #### [facility] [address] [place] [address] Dr. Chana Ceballos LIPID PROFILEon 10-05-2021 CHOL-HDL RATIO NORM SEE BELOW Normal [facility] Comment on above: Result Comment: 3.3 - 4.4 LOW RISK 4.4 - 7.1 AVERAGE RISK 7.1 - 11.0 MODERATE RISK >11.0 HIGH RISK Performed By: #### T SH, CMP, LIPID, FT3 #### [facility] [address] [place] [address] Dr. Chana Ceballos Cholesterol [Mass/Vol] 217 mg/dL Critically high <=200 [facility] Comment on above: Performed By: #### T SH, CMP, LIPID, FT3 #### [facility] [address] [place] [address] Dr. Chana Ceballos Cholesterol in HDL [Mass/Vol] 38 mg/dL Critically low 40-60 [facility] Comment on above: Performed By: #### T SH, CMP, LIPID, FT3 #### [facility] [address] [place] [address] Dr. Chana Ceballos Cholesterol in LDL [Mass/Vol] 137.4 mg/dL Normal [facility] Comment on above: Performed By: #### T SH, CMP, LIPID, FT3 #### [facility] [address] [place] [address] [address] Chana Ceballos Cholesterol.total/Ch olesterol in HDL [Mass ratio] 5.7 {ratio} Normal [facility] Comment on above: Performed By: #### T SH, CMP, LIPID, FT3 #### [facility] [address] [place] [address] [address] Chana Ceballos HDL NORMAL > or = 60 mg/dl - LOW CARDIOVASCULAR RISK <40 mg/dl - HIGH CARDIOVASCULAR RISK Normal [facility] Comment on above: Performed By: #### T SH, CMP, LIPID, FT3 #### [facility] [address] [place] [address] [address] Chana Ceballos LDL CALC NORMAL SEE BELOW Normal [facility] Comment on above: Result Comment: <100 mg/dl OPTIMAL 100 - 129 mg/dl NEAR OR ABOVE OPTIMAL 130 - 159 mg/dl BORDERLINE HIGH 160 - 189 mg/dl HIGH >190 mg/dl VERY HIGH Performed By: #### T SH, CMP, LIPID, FT3 #### [facility] [address] [place] [address] [address] Chana Ceballos Triglyceride [Mass/Vol] 208 mg/dL Critically high <=150 [facility] Comment on above: Performed By: #### T SH, CMP, LIPID, FT3 #### [facility] [address] [place] [address] [address] Chana Ceballos VLDL CALC 41.6 mg/dL Normal [facility] Comment on above: Performed By: #### T SH, CMP, LIPID, FT3 #### [facility] [address] [place] [address] [address] Chana Ceballos PROF 14(COMP METB)on 022 Albumin [Mass/Vol] 4.2 g/dL Normal 3.4-5.0 [facility] Comment on above: Performed By: #### T SH, CMP, LIPID, FT3 #### [facility] [address] [place] [address] [address] Chana Ceballos Albumin/Globulin [Mass ratio] 1.2 {ratio} Normal [facility] Comment on above: Performed By: #### T SH, CMP, LIPID, FT3 #### [facility] [address] [place] [address] Dr. Chana Ceballos ALP [Catalytic activity/Vol] 61 U/L Normal 46-116 [facility] Comment on above: Performed By: #### T SH, CMP, LIPID, FT3 #### [facility] [address] [place] [address] Dr. Chana Ceballos ALT [Catalytic activity/Vol] 29 U/L Normal 14-59 [facility] Comment on above: Performed By: #### T SH, CMP, LIPID, FT3 #### [facility] [address] [place] [address] Dr. Chana Ceballos Anion gap [Moles/Vol] 14.3 mmol/L Normal [facility] Comment on above: Performed By: #### T SH, CMP, LIPID, FT3 #### [facility] [address] [place] [address] Dr. Chana Ceballos AST [Catalytic activity/Vol] 17 U/L Normal 15-37 [facility] Comment on above: Performed By: #### T SH, CMP, LIPID, FT3 #### [facility] [address] [place] [address] Dr. Chana Ceballos Bilirubin [Mass/Vol] 0.2 mg/dL Normal 0.2-1.0 [facility] Comment on above: Performed By: #### T SH, CMP, LIPID, FT3 #### [facility] [address] [place] [address] Dr. Chana Ceballos Calcium [Mass/Vol] 9.0 mg/dL Normal 8.5-10.1 [facility] Comment on above: Performed By: #### T SH, CMP, LIPID, FT3 #### [facility] [address] [place] [address] Dr. Chana Ceballos Chloride [Moles/Vol] 103 mmol/L Normal 98-107 [facility] Comment on above: Performed By: #### T SH, CMP, LIPID, FT3 #### [facility] [address] [place] [address] Dr. Chana Ceballos CO2 [Moles/Vol] 25.1 mmol/L Normal 21.0-32.0 [facility] Comment on above: Performed By: #### T SH, CMP, LIPID, FT3 #### [facility] [address] [place] [address] [address] Chana Ceballos Creatinine [Mass/Vol] 0.93 mg/dL Normal 0.55-1.02 [facility] Comment on above: Performed By: #### T SH, CMP, LIPID, FT3 #### [facility] [address] [place] [address] [address] Chana Ceballos EGFR-AF ZAMBIAN >60 Normal >=60 [facility] Comment on above: Performed By: #### T SH, CMP, LIPID, FT3 #### [facility] [address] [place] [address] [address] Chana Ceballos EGFR-NON AF ZAMBIAN >60 Normal >=60 [facility] Comment on above: Performed By: #### T SH, CMP, LIPID, FT3 #### [facility] [address] [place] [address] [address] Chana Ceballos Globulin (S) [Mass/Vol] 3.4 g/dL Normal [facility] Comment on above: Performed By: #### T SH, CMP, LIPID, FT3 #### [facility] [address] [place] [address] [address] Chana Ceballos Glucose [Mass/Vol] 198 mg/dL Critically high 74-106 [facility] Comment on above: Performed By: #### T SH, CMP, LIPID, FT3 #### [facility] [address] [place] [address] [address] Chana Ceballos Potassium [Moles/Vol] 4.4 mmol/L Normal 3.5-5.1 [facility] Comment on above: Performed By: #### T SH, CMP, LIPID, FT3 #### [facility] [address] [place] [address] [address] Chana Ceballos Protein [Mass/Vol] 7.6 g/dL Normal 6.4-8.2 [facility] Comment on above: Performed By: #### T SH, CMP, LIPID, FT3 #### [facility] [address] [place] [address] [address] Cahna Ceballos Sodium [Moles/Vol] 138 mmol/L Normal 136-145 [facility] Comment on above: Performed By: #### T SH, CMP, LIPID, FT3 #### [facility] [address] [place] [address] Dr. Chana Ceballos Urea nitrogen [Mass/Vol] 18.0 mg/dL Normal 7.0-18.0 [facility] Comment on above: Performed By: #### T SH, CMP, LIPID, FT3 #### [facility] [address] [place] [address] [address] Chana Ceballos Urea nitrogen/Creatinine [Mass ratio] 19.4 mg/mg Normal [facility] Comment on above: Performed By: #### T SH, CMP, LIPID, FT3 #### [facility] [address] [place] [address] [address] Chana Ceballos TSHon 10-05-2021 TSH 2.219 uIU/mL Normal 0.358-3.740 [facility] Comment on above: Performed By: #### T SH, CMP, LIPID, FT3 #### [facility] [address] [place] [address] Dr. Chana Ceballos Vital Signs Date Time Vital Sign Value Performing Clinician Facility 07-12-2023 11:25-0400 Diastolic blood pressure 88 mm[Hg] MD Jaja Parry Work Phone: [facility] 07-12-2023 11:25-0400 Heart rate 82 /min MD Jaja Parry Work Phone: [facility] 07-12-2023 11:25-0400 Respiratory rate 16 /min MD Jaja Parry Work Phone: [facility] 07-12-2023 11:25-0400 SaO2% (BldA) [Mass fraction] 99 % MD Jaja Parry Work Phone: [facility] 07-12-2023 11:25-0400 Systolic blood pressure 138 mm[Hg] MD Jaja Parry Work Phone: [facility] 07-12-2023 10:51-0400 Inhaled oxygen flow rate 3 L/min MD Jaja Parry Work Phone: [facility] 07-12-2023 09:56-0400 Body height 167.64 cm MD Jaja Parry Work Phone: [facility] 07-12-2023 09:56-0400 Body weight 108.86 kg MD Jaja Parry Work Phone: [facility] 06-17-2023 08:47-0400 Body height 167.64 cm [facility] 06-17-2023 08:47-0400 Body mass index (BMI) [Ratio] 38.4 kg/m2 [facility] 06-17-2023 08:47-0400 Body weight 108 kg [facility] 05-09-2023 08:58-0400 Body height 167.64 cm [facility] 05-09-2023 08:58-0400 Body mass index (BMI) [Ratio] 38.7 kg/m2 [facility] 05-09-2023 08:58-0400 Body weight 108.94 kg [facility] 07-28-2022 08:15-0400 Body height 167.64 cm Hudson Gu Other [facility] [employer] Other 07-28-2022 08:15-0400 Body mass index (BMI) [Ratio] 38.73 kg/m2 Hudson Gu Other [facility] [employer] Other 07-28-2022 08:15-0400 Body weight 108.86 kg Hudson Gu Other [email or web address] Other 12-12-2021 13:05-0400 Body height 167.64 cm Liliya Fletcher Other [email or web address] Other 12-12-2021 13:05-0400 Body mass index (BMI) [Ratio] 35.51 kg/m2 Liliya Fletcher Other [email or web address] Other 12-12-2021 13:05-0400 Body temperature 97.9 [degF] Liliya Fletcher Other [email or web address] Other 12-12-2021 13:05-0400 Body weight 99.79 kg Liliya Fletcher Other [email or web address] Other 12-12-2021 13:05-0400 Diastolic blood pressure 74 mm[Hg] Liliya Fletcher Other [email or web address] Other 12-12-2021 13:05-0400 Respiratory rate 18 /min Liliya Fletcher Other [email or web address] Other 12-12-2021 13:05-0400 SaO2% (BldA) [Mass fraction] 99 % Liliya Fletcher Other [email or web address] Other 12-12-2021 13:05-0400 Systolic blood pressure 138 mm[Hg] Liliya Fletcher Other [email or web address] Other 2021 12:30-0400 Body height 167.64 cm Dorys Pughault Other [email or web address] Other 2021 12:30-0400 Body mass index (BMI) [Ratio] 36.31 kg/m2 Dorys Prudencio Other [email or web address] Other 2021 12:30-0400 Body temperature 97 [degF] Dorys Prudencio Other [email or web address] Other 2021 12:30-0400 Body weight 102.06 kg Dorys Flannery Other [facility] [employer] Other Encounters Encounter Date Encounter Type Care Provider Facility Start: 10-13-2023 End: 10-13-2023 ambulatory MD Jaja Parry Work Phone: [facility] Work Phone: Start: 10-13-2023 End: 10-13-2023 Patient encounter procedure MD Jaja Parry Work Phone: [facility] Work Phone: Start: 08-01-2023 End: 08-01-2023 ambulatory MD Jaja Parry Work Phone: [facility] Work Phone: Start: 08-01-2023 End: 08-01-2023 Patient encounter procedure MD Jaja Parry Work Phone: [facility] Work Phone: Start: 07-12-2023 Non-patient / Non-visit MD Linnea Parry Work Phone: [facility] Work Phone: Start: 07-12-2023 End: 07-12-2023 Admission to same day surgery center MD Jaja Parry Work Phone: [facility] Work Phone: Start: 07-12-2023 End: 07-12-2023 ambulatory MD Jaja Parry Work Phone: [facility] Work Phone: Start: 06-30-2023 End: 06-30-2023 Patient encounter procedure MD Jaja Parry Work Phone: [facility] Work Phone: Start: 06-17-2023 End: 06-17-2023 ambulatory [facility] Work Phone: Start: 06-17-2023 End: 06-17-2023 Patient encounter procedure [facility] Work Phone: Start: 05-09-2023 End: 05-09-2023 ambulatory [facility] Work Phone: Start: 05-09-2023 End: 05-09-2023 Patient encounter procedure [facility] Work Phone: Start: 02-02-2023 End: 02-02-2023 ambulatory VALORIE JOSEPHO Not Available Start: 07-28-2022 End: 07-28-2022 ambulatory Hudson Gu Other [email or web address] Other Start: 07-28-2022 Office outpatient vi sit 25 minutes Hudson Gu [facility] Start: 06-23-2022 End: 06-24-[address] JAJA PARRY . Facility:[facility] Start: 06-14-2022 End: 06-14-2022 ambulatory Hudson Gu Other [email or web address] Other Start: 06-14-2022 Telephone encounter Hudson Gu [facility] Start: 03-09-2022 End: 04-08-2022 ambulatory HUDSON GU Facility:[facility] Start: 02-22-2022 End: 02-23-2022 ambulatory LILIYA HUTTON Facility:[facility] Start: 12-12-2021 Office outpatient vi sit 15 minutes Liliya Fletcher [facility] Start: 12-12-2021 End: 12-12-2021 ambulatory MD Jaja Parry Work Phone: [email or web address] Other Start: 12-12-2021 End: 12-12-2021 Patient encounter procedure MD Jaja Parry Work Phone: [facility] Start: 2021 End: 2021 ambulatory Dorys Pughault Other [facility] [employer] Other Start: 2021 Office outpatient ne w 20 minutes Dorys Flannery [facility] Start: 10-07-2021 Encounter for genera l adult medical examination without abnormal findings DR JAJA PARRY . [facility] Start: 10-05-2021 End: 10-06-2021 ambulatory [...] left knee XR knee LT 2V [facility] Start: 10-13-2023 XR Knee - left 2 Views [facility] Start: 07-12-2023 [facility] Patient Education Know your Meds Felter Non Diagnostic Block [facility] Work Phone: Patient referral [facility] Work Phone: Payers Date Payer Category Payer Self-pay 2012 Unknown [id number] 1965 Unknown [id number] 2.16.84 [id number] 1965 Unknown [id number] 2.16.84 [id number] 1965 Unknown [id number] 2.16.84 [id number] 1965 Unknown [id number] 2.16.84 [id number] 1965 Unknown [id number] 1961 Blue Cross Blue Shield [id number] Unknown [employer] BC/BS [id number] Unknown [id number] 2.16.8 [id number] Unknown [id number] 2.16.8 [id number] Social History Date Type Detail Facility Sex Assigned At [email or web address] Other Start: 1965 Sex Assigned At Female F [facility] Goals Date Patient Goal Desired Activity /State Clinical Notes 2021 to 07-12-2023 Note Date & Type Note Facility 07-12-2023 Procedure note [facility] 05-09-2023 Evaluation note Authored May 09, 2023 9:1 6am We performed a 4/1cc Marcain e / Kenalog cortisone injection into the knee joint under sterile technique. Patient tolerated the injection well without adverse reaction. Patient can follow up as needed. Note scribed by ESEQUIEL Valle, reviewed and amended by myself Hudson Gu D.O. [facility] Work Phone: [phone] 453-562206-14-2023 Evaluation note* Encounter Date Diagnosis Assessment Notes [...] tolerated the injection well without adverse reaction. [email or web address] Other 05-01-2023 Evaluation note* Encounter Date Diagnosis Assessment Notes Treatment Notes Treatment Clinical Notes June, Acute meniscal tear of left knee, initial encounter (ICD-10 - S83.207A) [email or web address] Other 10-29-2022 Evaluation note* Encounter Date Diagnosis [...] Nov, Other Contusion mater ial was printed [email or web address] Other 08-28-2022 Evaluation note* Encounter Date Diagnosis [...] COVID POSITIVE education handout discharge instructions. given. [email or web address] Other Evaluation noteNo assessment information available [facility] Work Phone: Evaluation note* Author Mare Ramirez [facility] Authored May 09, 2023 9:1 6am We performed a 4/1cc Marcain e / Kenalog cortisone injection into the knee joint under sterile technique. Patient tolerated the injection well without adverse reaction. Patient can follow up as needed. Note scribed by ESEQUIEL Valle, reviewed and amended by myself Hudson Gu D.O. [facility] Work Phone: Evaluation note* Diagnosis Onset Date Resolution Status Chronic pain acute Knee pain acute Osteoarthritis of left knee acute Chronic pain acute Contusion of left knee acute Knee pain acute Osteoarthritis of left knee acute [facility] Work Phone: History general Narrative - Reported* Type Description Date Medical History diabetes Surgical History c-sections - 2 Surgical History oophorectomy Surgical History hysterectomy [email or web address] Other [facility] general Narrative - Reported* Type Description Date Medical History diabetes Medical History high cholesterol Surgical History c-sections - 2 Surgical History oophorectomy Surgical History hysterectomy [email or web address] Other Chief Complaint and Reason for Visit [...] and content) DATE CREATED AUTHOR 06/27/2022 [facility] DATE CREATED AUTHOR AUTHOR'S ORGANIZ ATION 02/03/2023 [facility] dical [facility] DATE CREATED AUTHOR AUTHOR'S ORGANIZ ATION 10/26/2023 [facility] FOR RECORDS PERTAINING TO PATIENTS [...] BE BASED ON THE PRIMARY CLINICAL RECORDS. [facility] [employer] [facility]. provides no warranty or guarantee of the accuracy or completeness of information in this document.
[2024-04-13 14:13] VITALS: BP 137/87; PULSE 105; TEMP 37.2; O2SAT 97; BMI 38.7
--- NOTE | 2024-04-13 16:27 | ED.GENADUL1 ---
HPI HPI - General Adult General Chief complaint: Abdominal Pain Stated complaint: CONSTIPATION, VOMITING Time Seen by Provider: 04/13/24 15:43 Source: patient and family Mode of arrival: walk-in Limitations: no limitations History of Present Illness HPI narrative: Patient is a 58-year-old female who is presenting to the ER today with chief complaint of right sided upper and lower quadrant abdominal pain and cramping, intractable nausea and vomiting today. Patient was seen her last evening. Patient had testing done. Patient had an x-ray last evening. Patient was told that she had constipation and she was given information and direction on discharge paperwork last evening from Dr. Dunham and treatment of her symptoms and help with constipation. Patient called her PCP Dr. Parry today, she was recommended to come back to the ER if she continues to have symptoms from her nursing staff. Patient has no fever, no urinary complaints, no diarrhea, is at bedside. All systems are negative except as noted/marked. All systems reviewed and otherwise negative. Nurses note and vital signs reviewed and patient is not hypoxic. General: The patient appears sick that she does not feel well but is not toxic. Patient is resting uncomfortably on cart. Patient is not toxic, lethargic, or listless Skin: Warm, dry, no pallor noted. There is no rash noted. No petechiae, purpura. Head: Normocephalic, atraumatic Eye: Normal conjunctiva, no drainage, EOMI. PERRL Ears, Nose, Mouth, and Throat: oral mucosa is moist. Nares patent. Mouth without vesicles. Cardiovascular: Regular Rate and Rhythm, no murmur, gallop, rub Respiratory: Patient is in no distress, no accessory muscle use, lungs are clear to auscultation, no wheezing, rales or rhonchi Back: non-tender, no CVA tenderness bilaterally to percussion. No CT LS midline pain GI: Soft, obese, mild right upper quadrant and right lower quadrant tenderness to palpation, no peritoneal signs, no flank pain, mild midepigastric tenderness palpation, otherwise no other tenderness to palpation, no masses appreciated. No rebound, guarding, or rigidity noted. No distention Musculoskeletal: Patient has full range of motion of all of the extremities, no motor, sensory, or focal neurological deficits Neurological: A&O x4, normal speech Psychiatric: Cooperative Related Data Home Medications ?Medication ?Instructions ?Recorded ?Confirmed blood sugar diagnostic (OneTouch 01/13/23 01/13/23 Verio test strips) flash glucose scanning reader 01/13/23 01/13/23 (FreeStyle Kirsten 2 [place]) flash glucose sensor (FreeStyle 01/13/23 01/13/23 Kirsten 2 Sensor kit) nabumetone 500 mg tablet 500 mg PO BID 01/13/23 04/12/24 simvastatin 20 mg tablet 20 mg PO DAILY 01/13/23 04/12/24 insulin glargine 100 unit/mL (3 20 unit subcut DAILY 03/21/24 04/12/24 mL) subcutaneous pen (Basaglar KwikPen U-100 Insulin) insulin lispro 100 unit/mL 1 sliding scale dose subcut 03/21/24 04/12/24 subcutaneous pen (elog SoloStar USEASDIRECTD U-100 Insulin lispro) metoprolol tartrate 50 mg tablet 50 mg PO Q12H 03/22/24 04/12/24 amoxicillin 875 mg-potassium 1 tab PO Q12H 04/12/24 04/12/24 clavulanate 125 mg tablet triamcinolone acetonide 0.1 % 1 applic topical TID 04/12/24 04/12/24 topical cream Previous Rx's ?Medication ?Instructions ?Recorded sucralfate 1 gram tablet (Carafate) 1 g PO Q6H PRN abdominal pain #12 03/21/24 tabs dicyclomine 20 mg tablet 20 mg PO TID PRN abdominal pain #7 04/13/24 tabs prochlorperazine maleate 10 mg 10 mg PO Q12H PRN nausea and 04/13/24 tablet (Compazine) vomiting, headache 7 days #7 tabs promethazine 25 mg rectal 25 mg OR Q6H PRN nausea and 04/13/24 suppository vomiting #6 ea Allergies Allergy/AdvReac Type Severity Reaction Status Date / Time cephalexin (From [employer]) Allergy Intermediate Unknown Verified 04/13/24 14:13 lisinopril Allergy Intermediate Unknown Verified 04/13/24 14:13 Opioid HPI Opioid Management Most Recent Opioid Data: Last Pain Scale 4 03/23/24 13:00 03/23/24 Last ORT Total Score 1 03/22/24 17:48 03/22/24 Last ORT Risk Category Low Risk 03/22/24 17:48 03/22/24 PFSH PFS Medical History (Updated 04/13/24 @ 18:22 by Dann Lacey MD) Abdominal pain ?R10.9 - Unspecified abdominal pain (ICD-10) Surgical History (Updated 03/22/24 @ 17:53 by Mary Woo) H/O oophorectomy H/O: hysterectomy ?Z90.710 - Acquired absence of both cervix and uterus (ICD-10) Social History Highest level of school completed/degree received: some college, no degree Little interest or pleasure in doing things: not at all Feeling down, depressed, or hopeless: not at all Exam Constitutional Vital Signs, click to edit/add: Last Vital Signs Temp 98.9 F 04/13/24 14:13 Pulse 105 H 04/13/24 14:13 Resp 14 04/13/24 14:13 BP 137/87 04/13/24 14:13 Pulse Ox 97 04/13/24 14:13 O2 Del Method Room Air 04/13/24 14:13 Course Vital Signs Vital signs: Vital Signs Temperature 98.9 F 04/13/24 14:13 Pulse Rate 105 H 04/13/24 14:13 Respiratory Rate 14 04/13/24 14:13 Blood Pressure 137/87 04/13/24 14:13 Pulse Oximetry 97 04/13/24 14:13 Oxygen Delivery Method Room Air 04/13/24 14:13 Temperature 98.9 F 04/13/24 14:13 Pulse Rate 105 H 04/13/24 14:13 Respiratory Rate 14 04/13/24 14:13 Blood Pressure 137/87 04/13/24 14:13 Pulse Oximetry 97 04/13/24 14:13 Oxygen Delivery Method Room Air 04/13/24 14:13 Medical Decision Making [facility] Narrative Medical decision making narrative: Patient's case was initially discussed with Dr. Prary. He is aware of presentation. Patient blood sugar was elevated. Patient was given 1 L of IV fluid. Patient was given Zofran and Compazine along with fluids. Patient's lab work was compared to last night, no significant changes. Patient's blood gas shows normal pH, sodium 135 secondary to elevated sugar, no acute electrolyte abnormalities. I gave patient a copy of her abdominal x-ray again from last night. Patient had mild constipation on her x-ray. Patient feels better after IV fluids. Patient was sent home with additional Zofran, Also additional Compazine and Phenergan suppository prescription to help with her symptoms. Patient can call Dr. Parry to follow-up on Tuesday. Dr. Parry is aware of patient's disposition. He will follow-up next week. Lab Data Labs: Lab Results 04/13/24 04/13/24 04/13/24 Range/Units 15:33 16:51 17:19 WBC 6.3 (4.0-11.0) 10^3/uL RBC 4.96 (4.20-5.40) 10^6/uL Hgb 14.9 (12.0-16.0) g/dL Hct 42.5 (36.0-48.0) % MCV 85.7 (81.0-99.0) fL MCH 30.0 (26.7-34.0) pg MCHC 35.1 (29.9-35.2) g/dL RDW 12.7 (11.0-15.0) % Plt Count 171 (150-450) 10^3/uL MPV 12.2 (9.5-13.5) fL Seg Neuts % (Manual) 94.0 H (43.0-75.0) Lymphocytes % (Manual) 2.0 L (20.5-60.0) % Monocytes % (Manual) 2.0 (1.7-12.0) % Eosinophils % (Manual) 2.0 (0.9-7.0) % Basophils % (Manual) 0.0 L (0.2-2.0) % Neutrophils # (Manual) 5.92 (1.4-6.5) 10^3/uL Band Neutrophils # 0.1 (0.0-0.3) 10^3/uL Lymphocytes # (Manual) 0.12 L (1.20-3.80) 10^3/uL Monocytes # (Manual) 0.12 L (0.30-0.80) 10^3/uL Eosinophils # (Manual) 0.12 (0.00-0.70) 10^3/uL Basophils # (Manual) 0.00 (0.00-0.10) 10^3/uL VBG pH 7.389 (7.330-7.430) VBG pCO2 38.1 L (40.0-52.0) mmHg Sodium 135 L (136-145) mmol/L Potassium 3.7 (3.5-5.1) mmol/L Chloride 100 (98-107) mmol/L Carbon Dioxide 21.5 (21.0-32.0) mmol/L Anion Gap 17.2 BUN 14.0 (7.0-18.0) mg/dL Creatinine 0.82 (0.55-1.02) mg/dL Est GFR ( Amer) >60 (>=60 mL/min/1.73m^2) Est GFR (Non-Af Amer) >60 (>=60 mL/min/1.73m^2) BUN/Creatinine Ratio 17.1 Glucose 329 H (74-106) mg/dL Lactate 1.5 (0.4-2.0) mmol/L Calcium 8.5 (8.5-10.1) mg/dL Total Bilirubin 1.0 (0.2-1.0) mg/dL AST 39 H (15-37) U/L ALT 35 (14-59) U/L Alkaline Phosphatase 68 (46-116) U/L Total Protein 6.9 (6.4-8.2) g/dL Albumin 3.7 (3.4-5.0) g/dL Globulin 3.2 g/dL Albumin/Globulin Ratio 1.2 Lipase 31.0 (16.0-77.0) U/L Discharge Plan Discharge Chief Complaint: Abdominal Pain Clinical Impression: Abdominal pain, Nausea & vomiting Patient Disposition: Home, Self-Care Time of Disposition Decision: 18:22 Condition: Fair Prescriptions / Home Meds: New promethazine 25 mg suppository 25 mg OR Q6H PRN (Reason: nausea and vomiting) Qty: 6 0RF prochlorperazine maleate [Compazine] 10 mg tablet 10 mg PO Q12H PRN (Reason: nausea and vomiting, headache) 7 Days Qty: 7 0RF dicyclomine 20 mg tablet 20 mg PO TID PRN (Reason: abdominal pain) Qty: 7 0RF No Action (DME) OneTouch Verio test strips Strip MISCELLANEOUS (DME) FreeStyle Kirsten 2 Sensor Kit MISCELLANEOUS (DME) FreeStyle Kirsten 2 [place] Misc MISCELLANEOUS nabumetone 500 mg tablet 500 mg PO BID simvastatin 20 mg tablet 20 mg PO DAILY insulin glargine [Basaglar KwikPen U-100 Insulin] 100 unit/mL (3 mL) insulin pen 20 unit subcut DAILY insulin lispro [Admelog SoloStar U-100 Insulin] 100 unit/mL insulin pen 1 sliding scale dose subcut USEASDIRECTD sucralfate [Carafate] 1 gram tablet 1 g PO Q6H PRN (Reason: abdominal pain) Qty: 12 0RF metoprolol tartrate 50 mg tablet 50 mg PO Q12H amoxicillin-pot clavulanate 875-125 mg tablet 1 tab PO Q12H triamcinolone acetonide 0.1 % cream 1 applic TOPICAL TID Print Language: Micronesian Instructions: Acute Nausea and Vomiting (ED), Diabetic Hyperglycemia (ED), Chronic Abdominal Pain (DC) Additional Instructions: Use Zofran, Compazine if needed for nausea and vomiting. Use Phenergan suppositories if needed for intractable nausea and vomiting. Call Dr. Parry on Tuesday to follow-up with ongoing multiple chronic complaints in the past month. A copy of your x-ray report was given to you, it shows mild constipation. Referrals: Florencio Parry MD [Primary Care Provider] - 1 week Discharge Date/Time: 04/13/24 18:50
[2024-04-13] MEDS: 0.9 % SODIUM CHLORIDE 1,000 ML 999 ML IV (16:40)
[2024-04-13] MEDS: ONDANSETRON PF 4 MG/2 ML VIAL IV (16:40)
[2024-04-13 16:43] LABS: Hematocrit 42.5 % (36.0-48.0); Hemoglobin 14.9 g/dL (12.0-16.0); Mean Corpuscular HGB Conc 35.1 g/dL (29.9-35.2); Mean Corpuscular Volume 85.7 fL (81.0-99.0); Mean Platelet Volume 12.2 fL (9.5-13.5); Platelet Count 171 10^3/uL (150-450); Red Blood Count 4.96 10^6/uL (4.20-5.40); Red Cell Distribution Width 12.7 % (11.0-15.0); White Blood Count 6.3 10^3/uL (4.0-11.0)
[2024-04-13 17:05] LABS: Band Neutrophils Absolute 0.1 10^3/uL (0.0-0.3); Eosinophils Absolute Manual 0.12 10^3/uL (0.00-0.70); Lymphocytes Absolute Manual 0.12 10^3/uL (1.20-3.80); Monocytes Absolute Manual 0.12 10^3/uL (0.30-0.80); Segmented Neut Absolute Manual 5.92 10^3/uL (1.4-6.5)
[2024-04-13 17:08] LABS: Alanine Aminotransferase 35 U/L (14-59); Albumin Globulin Ratio 1.2; Albumin Level 3.7 g/dL (3.4-5.0); Alkaline Phosphatase 68 U/L (46-116); Anion Gap 17.2; Aspartate Amino Transferase 39 U/L (15-37); BUN Creatinine Ratio 17.1; Calcium 8.5 mg/dL (8.5-10.1); Carbon Dioxide 21.5 mmol/L (21.0-32.0); Chloride 100 mmol/L (98-107); Estimated GFR (African America >60 (>=60 mL/min/1.73m^2); Estimated GFR (Non-African Ame >60 (>=60 mL/min/1.73m^2); Globulin 3.2 g/dL; Glucose 329 mg/dL (74-106); Potassium 3.7 mmol/L (3.5-5.1); Sodium 135 mmol/L (136-145); Total Protein 6.9 g/dL (6.4-8.2)
[2024-04-13 17:22] LABS: Lactate/Lactic Acid 1.5 mmol/L (0.4-2.0)
[2024-04-13 17:31] LABS: PCO2 VBG 38.1 mmHg (40.0-52.0); pH VBG 7.389 (7.330-7.430)
== END 2024-04-13 18:50 | disposition home or self-care (01) ==
PROVIDERS: Emergency Provider Emergency Medicine; PCP Family Medicine
DX: R10.31 Right lower quadrant pain (principal); Z90.710 Acquired absence of both cervix and uterus; R10.11 Right upper quadrant pain; R11.2 Nausea with vomiting, unspecified
CPT/HCPCS: 36415; 80053; 82800; 83605; 83690; 85007; 85027; 96374; 99284; J2405

== ENCOUNTER 2024-04-20 07:27 | Outpatient (OUT) | payer OTHER, SELFPAY ==
--- NOTE | 2024-04-20 | NM_ITS ---
Patient Name: RJ PINZON MR#: [id number] : 1965 Exam Date: 04/20/2024 Ordering Doctor: DR Florencio Parry . RADIOLOGY REPORT PROCEDURE: NM FERNANDO PERF SPECT REST STR COMPARISON: None. INDICATIONS: CHEST PAIN TECHNIQUE: Exam Description: Stress/Rest one day protocol gated SPECT Rest Imagin.0 mCi Tc-99m Cardiolite IV on 04/20/2024 Stress Imaging 29.4 mCi Tc-99m Cardiolite IV on 04/20/2024 Exercise Protocol: 0.4 mg Lexiscan given IV Heart Rate (bpm): Rest: 70 Max: 83 PMHR: 51 Blood Pressure: Rest: 128/78 Max: 132/76 Symptoms: Rest and peak stress ECG findings were pending and the exercise portion of the study was pending per attending physician [facility] . For more details please see separate cardiac stress test report. FINDINGS: QUALITY OF STUDY: Good PERFUSION DEFECT: LOCATION: Inferoapical SIZE: Small SEVERITY: Mild TYPE: Fixed. Likely diaphragm attenuation. WALL MOTION: Normal wall motion LV SIZE: 73 mL. TID / TCD: 1.0 LVEF: Calculated EF 74%. SUMMARY: Myocardial perfusion imaging study is normal CONCLUSION: 1. Myocardial perfusion imaging is normal with soft tissue attenuation 2. Global left ventricular systolic function is normal 3. No evidence of transient ischemic dilatation Dictated by: Ailin Murphy M.D. on 04/25/2024 at 12:20 Approved by: Ailin Murphy M.D. on 04/25/2024 at 12:23
--- NOTE | 2024-04-20 07:30 | CA_ITS ---
Patient Name: JR PINZON MR#: [id number] : 1965 Exam Date: 04/20/2024 Ordering Doctor: DR Florencio Parry . ECHOCARDIOGRAM REPORT PROCEDURE: CA ECHO DOPPLER COMPLETE INDICATIONS: Essential hypertension, diabetes COMPARISON: None. DESCRIPTION: COMPLETE ECHOCARDIOGRAM Real-time transthoracic echocardiography with 2D, M-mode, spectral and color flow Doppler performed. QUALITY: Technical quality was good. LEFT VENTRICLE: Normal chamber size. Mild to moderate concentric hypertrophy. Normal systolic function. LV EF: Normal left ventricular ejection fraction, (>55%). DIASTOLIC: Normal diastolic function. ATRIAL SEPTUM: LEFT ATRIUM: Normal chamber size. RIGHT ATRIUM: Normal chamber size. RIGHT VENTRICLE: Normal chamber size. Normal right ventricular systolic function. TRICUSPID VALVE: Normal mobility and thickness. No stenosis with no regurgitation. Unable to assess right-sided pressures due to lack of measurable tricuspid regurgitation. MITRAL VALVE: Normal mobility and thickness. No evidence of mitral valve stenosis. There is no mitral annular calcification. No mitral regurgitation. AORTIC VALVE: Normal trileaflet appearance. No visible sclerosis. Normal leaflet mobility. No evidence of aortic valve stenosis. No aortic regurgitation. AORTIC ROOT: Normal diameter and appearance. Ascending aorta is normal in size, measuring 2.9 cm. PULMONIC VALVE: Normal thickness and mobility. No stenosis. Trivial regurgitation. PERICARDIUM: No evidence of pericardial effusion. IVC: Not well visualized. PLEURA: CONCLUSION: 1. Mild to moderate concentric left ventricular hypertrophy with normal systolic function. Estimated LVEF is 65%. 2. Normal right ventricular size and systolic function. 3. No significant valvular dysfunction. 4. No pericardial effusion. 5. Unable to assess right-sided pressures due to lack of measurable tricuspid regurgitation. Adult Echocardiography Procedure Report Left Ventricle LVEDD (3.7 - 5.6 cm): 3.22 cm LVESD (2.2 - 4.0 cm): 2.37 cm LVIVS thickness (0.6 - 1.2 cm): 1.51 cm LVPW thickness (0.5 - 1.0 cm): 1.13 cm e': 0.10 m/s E - e': 6.90 LVOT Max Gradient: 3.90 mm[Hg] LVOT Area (cm2): 0.99 m/s Peak Velocity (LVOT): 0.99 m/s Mean Velocity (LVOT): 0.67 m/s LVOT Diameter 2.44 cm Left Atrium LA Volume Index (2D A2C): 27.97 ml/m2 Left Atrium Systolic Dimension: 3.37 cm Mitral Valve MV E to A Ratio: 0.96 Mitral Valve A-Wave Peak Velocity: 0.70 m/s Mitral Valve E-Wave Peak Velocity: 0.67 m/s Right Ventricle Aorta AO Root Diam: 3.28 cm Ascending Ao Diam: 2.90 cm Aortic Valve AoV Area (Peak Ceasar): 4.47 cm2, 4.47 cm2 AoV Area (VTI): 4.47 cm2, 4.47 cm2 Peak Velocity(Antegrade Flow): 1.03 m/s Peak Gradient(Antegrade Flow): 4.25 mm[Hg] Mean Velocity(Antegrade Flow): 0.66 m/s Mean Gradient(Antegrade Flow): 2.10 mm[Hg] Velocity Time Integral: 23.24 cm Tricuspid Valve Pulmonic Valve Mean Gradient: 2.23 mm[Hg] Mean Velocity: 0.69 m/s Peak Velocity: 1.03 m/s, 1.07 m/s Peak Gradient: 4.57 mm[Hg], 4.21 mm[Hg] Right Atrium Right Atrium Systolic Pressure: 34.86 ml, 34.86 ml Dictated by: Rafita Farmer M.D. on 04/20/2024 at 17:23 Approved by: Rafita Farmer M.D. on 04/20/2024 at 17:26
--- OUTSIDE RECORDS SUMMARY | 2024-04-20 07:30 | XMS_ITS | CCD ---
Author Organization [facility] Care Team Providers Care Black Leather Trimmer Name Role Phone Dorys Flannery Unavailable Liliya Fletcher Unavailable MD Jaja Parry Primary Care Provider [phone] HAKEEM Fletcher Attending Provider Hudson Gu Unavailable [...] Unavailable MD Jaja Parry Primary Care Provider [phone] MD Gregg Nassar Attending Provider MD Jaja Parry Primary Care Provider [phone] MD Gregg Nassar Attending Provider Gregg Nassar Attending Unavailable Jaja Parry Primary Care Unavailable Gregg Nassar Admitting Unavailable Jaja Parry Primary Care Unavailable Gregg Nassar Admitting Unavailable Gregg Nassar Attending Unavailable Allergies Allergy Classification Reported Allergen(s) Allergy Type Date of Onset Reaction(s) Facility Angiotensin Converting Enzyme (ROSS) Inhibitors (1 source) Lisinopril Drug Allergy [address] [place] [address] Cephalosporins (antibiotic) (1 source) Cephalexin Drug Allergy 4 Unknown Reaction [facility] (5 sources) Cephalexin; Translations: [Keflex] Drug Allergy 4 Unknown [facility] (1 source) Corticosteroids Drug allergy (disorder) 4 [facility] (1 source) DULoxetine Drug Allergy 4 [facility] (4 sources) Cephalexin; Translations: [cephalexin] Drug Allergy 4 Unknown Reaction [facility] (4 sources) Lisinopril; Translations: [lisinopril] Drug Allergy 4 Rash [facility] Medications Current Medications Medication Drug Class(es) Dates [...] dispense #42 (forty two) DX: S83.207A Vit C-S.Lrmbgu-Nwgzsf-Ozyvb Sd (Tart Thapa) 24-692-64-75-20 mg capsule (4 sources) Start: 07-12-2023 Vit C-S.Thapa -Celery-Grape Sd (Tart Thapa) 08-699-08-75-20 mg capsule Active CAP PO July 12, [...] LT 2Von 10-13-2023 XR knee LT 2V [facility] [address] [place] [address] XRay Report Signed Patient: Susanne Clakr MR#: [id number] : 1965 Acct:[id number] Age/Sex: 58 / F ADM Date: 10/13/23 Loc: [facility] Room: Type: [facility] Attending Dr: Gregg Nassar MD Copies to: [...] Foster Jr., D.O.10/13/2023 12:32 PM Dictation Location: [place] [address] Transcribed By: [facility] 10/13/23 1232 Dictated By: Freedom Foster Jr, DO 10/13/23 1231 Signed By: 10/13/23 1232 Normal [facility] MRI KNEE LT [...] by: NOHEMY MARCOS Date: 2022-02-22 08:51 Normal [facility] XR knee LT 4V*on 12-12-2021 XR knee LT 4V* [facility] [employer] Other XR knee LT 4V* [facility] [employer] Other XR knee LT 4V* [address] [place] [address] [employer] Other XR knee LT 4V* [place] [address] No rt [employer] Other XR knee LT 4V* XRay Report [employer] Other XR knee LT 4V* Signed [employer] Other XR knee LT 4V* Patient: Susanne Clark MR#: [id number] [employer] Other XR knee LT 4V* [id number] [employer] Other XR knee LT 4V* : 1965 Acct:[id number] [employer] Other XR knee LT 4V* Age/Sex: 56 / F ADM Date: 12/12/21 [employer] Other XR knee LT 4V* Loc: [facility]DU[facility]Y Room: Type: [facility] [employer] Other XR knee LT 4V* Attending Dr: Liliya PALACIO [employer] Other XR knee LT 4V* Copies to: HAKEEM Lim [employer] Other XR knee LT 4V* Ordering Provider: HAKEEM Lim [employer] Other XR knee LT 4V* Date of Service: 12/12/21 [employer] Other XR knee LT 4V* XR/XR knee LT 4V*: Acute pain of left knee [employer] Other XR knee LT 4V* XR knee LT 4V* 12/12/2021 12:41 PM [employer] Other XR knee LT 4V* SIGNS AND SYMPTOMS: Left knee pain after fall [employer] Other XR knee LT 4V* PROTOCOL: Frontal, lateral, and oblique radiographs of the left knee [employer] Other XR knee LT 4V* COMPARISON: None [place] [employer] Other XR knee LT 4V* FINDINGS: [employer] Other XR knee LT 4V* There is mild narrowing of the patellofemoral joint space with minimal narrowing of the medial [employer] Other XR knee LT 4V* weightbearing joint space. There is no evidence of fracture. No dislocation or subluxation. No [employer] Other XR knee LT 4V* joint effusion. No significant soft tissue swelling. [employer] Other XR knee LT 4V* XR/XR knee LT 4V* [employer] Other XR knee LT 4V* IMPRESSION: [employer] Other XR knee LT 4V* No acute bony injury. [employer] Other XR knee LT 4V* Mild degenerative changes are noted, as above. [employer] Other XR knee LT 4V* Impression dictated by: Bernardo Camacho M.D.12/12/2021 12:59 PM [employer] Other XR knee LT 4V* Dictation Location: [place] [address] [employer] Other XR knee LT 4V* Transcribed By: PWS 12/12/21 1259 [employer] Other XR knee LT 4V* Dictated By: Bernardo Camacho II, MD 12/12/21 1258 [employer] Other XR knee LT 4V* Signed By: [employer] Other XR knee LT 4V* 12/12/21 125 [employer] Other SARS-CoV-2 (COVID-19) RNA NA A+probe Ql (Resp)on 2021 SARS-CoV-2 (COVID-19) RNA ALYSSA+probe Ql (Unsp spec) Positive [employer] Other T4 [facility] 10-06-2021 T4 [Mass/Vol] 7.2 ug/dL Normal 4.5-12.0 [facility] Comment on above: Performed By: #### T 4LC #### [facility] [address] [address] [address] Chana Ceballos VIT D 25-OH [facility] 2021 Vitamin D, 25-Hydroxy 33.8 ng/mL Normal 30.0-100.0 [facility] Comment on above: Result Comment: Divya min D deficiency has been defined by the [place] [facility] [employer] [facility] and an Endocrine Society practice guideline as a level of serum 25-OH vitamin D less than 20 ng/mL (1,2). The Endocrine Society went on to further define vitamin D insufficiency as a level between 21 and 29 ng/mL (2). 1. IOM ([employer] [facility] [employer]). 2010. Dietary reference intakes for calcium and D. [place]: The National Academies Press. 2. Sundar MF, Dinorah RIVERA, Kimberly GIBSON et al. Evaluation, treatment, and prevention of vitamin D deficiency: an Endocrine Society clinical practice guideline. JCEM. 2010; 96(7):1911-30. Performed By: #### V ITADLC #### [facility] [address] [place] [address] Dr. Chnaa Ceballos CBC AUTO DIFFon 10-05-2021 BASO # 0.0 103/ul Normal 0.0-0.1 [facility] Comment on above: Performed By: #### C BC #### [facility] [address] [place] [address] Dr. Chana Ceballos Basophils/100 WBC (Bld) 0.3 % Normal 0.2-2.0 [facility] Comment on above: Performed By: #### C BC #### [facility] [address] [place] [address] Dr. Chana Ceballos EO # 0.2 103/ul Normal 0.0-0.7 [facility] Comment on above: Performed By: #### C BC #### [facility] [address] [place] [address] Dr. Chana Ceballos Eosinophils/100 WBC (Bld) 2.1 % Normal 0.9-7.0 [facility] Comment on above: Performed By: #### C BC #### [facility] [address] [place] [address] Dr. Chana Ceballos Erythrocyte distribution width (RBC) [Ratio] 12.3 % Normal 11.0-15.0 [facility] Comment on above: Performed By: #### C BC #### [facility] [address] [place] [address] Dr. Chana Ceballos Hematocrit (Bld) [Volume fraction] 41.7 % Normal 36.0-48.0 [facility] Comment on above: Performed By: #### C BC #### [facility] [address] [place] [address] Dr. Chana Ceballos Hemoglobin (Bld) [Mass/Vol] 13.6 g/dL Normal 12.0-16.0 [facility] Comment on above: Performed By: #### C BC #### [facility] [address] [place] [address] [address] Chana Ceballos IG # 0.04 10e3/ul Critically high 0.00-0.03 [facility] Comment on above: Performed By: #### C BC #### [facility] [address] [place] [address] [address] Chana Ceballos IG % 0.6 % Critically high 0.0-0.5 [facility] Comment on above: Performed By: #### C BC #### [facility] [address] [place] [address] Dr. Chana Ceballos LYMPH # 1.4 103/ul Normal 1.2-3.8 [facility] Comment on above: Performed By: #### C BC #### [facility] [address] [place] [address] Dr. Chana Ceballos Lymphocytes/100 WBC (Bld) 19.8 % Critically low 20.5-60.0 [facility] Comment on above: Performed By: #### C BC #### [facility] [address] [place] [address] Dr. Cahna Ceballos MANUAL DIFF REQ NO Normal [facility] Comment on above: Performed By: #### C BC #### [facility] [address] [place] [address] Dr. Chana Ceballos MCH (RBC) [Entitic mass] 30.3 pg Normal 26.7-34.0 [facility] Comment on above: Performed By: #### C BC #### [facility] [address] [place] [address] Dr. Chana Ceballos MCHC (RBC) [Mass/Vol] 32.6 g/dL Normal 29.9-35.2 [facility] Comment on above: Performed By: #### C BC #### [facility] [address] [place] [address] Dr. Chana Ceballos MCV (RBC) [Entitic vol] 92.9 fL Normal 81.0-99.0 [facility] Comment on above: Performed By: #### C BC #### [facility] [address] [place] [address] Dr. Chana Ceballos MONO # 0.7 103/ul Normal 0.3-0.8 [facility] Comment on above: Performed By: #### C BC #### [facility] [address] [place] [address] Dr. Chana Ceballos Monocytes/100 WBC (Bld) 10.2 % Normal 1.7-12.0 [facility] Comment on above: Performed By: #### C BC #### [facility] [address] [place] [address] Dr. Chana Ceballos NEUT # 4.7 103/ul Normal 1.4-6.5 [facility] Comment on above: Performed By: #### C BC #### [facility] [address] [place] [address] Dr. Chana Ceballos Neutrophils/100 WBC (Bld) 67.0 % Normal 43.0-75.0 [facility] Comment on above: Performed By: #### C BC #### [facility] [address] [place] [address] Dr. Chana Ceballos Platelet mean volume (Bld) [Entitic vol] 11.0 fL Normal 9.5-13.5 [facility] Comment on above: Performed By: #### C BC #### [facility] [address] [place] [address] Dr. Chana Ceballos PLT 212 103/ul Normal 150-450 [facility] Comment on above: Performed By: #### C BC #### [facility] [address] [place] [address] Dr. Chana Ceballos WBC 7.1 103/ul Normal 4.0-11.0 [facility] Comment on above: Performed By: #### C BC #### [facility] [address] [place] [address] Dr. Chana Ceballos FREE T3on 10-05-2021 FREE T3 2.32 pg/mlL Normal 2.18-3.98 [facility] Comment on above: Performed By: #### T SH, CMP, LIPID, FT3 #### [facility] [address] [place], [place] [id number] Dr. Chana Ceballos GLYCOHEMOGLOBIN A1Con 2021 ADA RECOMMENDATION SEE BELOW Normal [facility] Comment on above: Result Comment: ADA RECOMMENDED LIMIT 4.0 - 6.0 ADA THERAPEUTIC TARGET < 7.0 ACTION SUGGESTED > 7.0 Performed By: #### A 1C #### [facility] [address] [place] [address] Dr. Chana Ceballos Glucose [Mass/Vol] 169 mg/dL Normal [facility] Comment on above: Performed By: #### A 1C #### [facility] [address] [place] [address] Dr. Chana Ceballos HbA1c (Bld) [Mass fraction] 7.5 % Critically high 4.5-6.2 [facility] Comment on above: Performed By: #### A 1C #### [facility] [address] [place] [address] Dr. Chana Ceballos LIPID PROFILEon 10-05-2021 CHOL-HDL RATIO NORM SEE BELOW Normal [facility] Comment on above: Result Comment: 3.3 - 4.4 LOW RISK 4.4 - 7.1 AVERAGE RISK 7.1 - 11.0 MODERATE RISK >11.0 HIGH RISK Performed By: #### T SH, CMP, LIPID, FT3 #### [facility] [address] [place] [address] Dr. Chana Ceballos Cholesterol [Mass/Vol] 217 mg/dL Critically high <=200 [facility] Comment on above: Performed By: #### T SH, CMP, LIPID, FT3 #### [facility] [address] [place] [address] Dr. Chana Ceballos Cholesterol in HDL [Mass/Vol] 38 mg/dL Critically low 40-60 [facility] Comment on above: Performed By: #### T SH, CMP, LIPID, FT3 #### [facility] [address] [place] [address] Dr. Chana Ceballos Cholesterol in LDL [Mass/Vol] 137.4 mg/dL Normal [facility] Comment on above: Performed By: #### T SH, CMP, LIPID, FT3 #### [facility] [address] [place] [address] [address] Chana Ceballos Cholesterol.total/Ch olesterol in HDL [Mass ratio] 5.7 {ratio} Normal [facility] Comment on above: Performed By: #### T SH, CMP, LIPID, FT3 #### [facility] [address] [place] [address] [address] Chana Ceballos HDL NORMAL > or = 60 mg/dl - LOW CARDIOVASCULAR RISK <40 mg/dl - HIGH CARDIOVASCULAR RISK Normal [facility] Comment on above: Performed By: #### T SH, CMP, LIPID, FT3 #### [facility] [address] [place] [address] [address] Chana Ceballos LDL CALC NORMAL SEE BELOW Normal [facility] Comment on above: Result Comment: <100 mg/dl OPTIMAL 100 - 129 mg/dl NEAR OR ABOVE OPTIMAL 130 - 159 mg/dl BORDERLINE HIGH 160 - 189 mg/dl HIGH >190 mg/dl VERY HIGH Performed By: #### T SH, CMP, LIPID, FT3 #### [facility] [address] [place] [address] [address] Chana Ceballos Triglyceride [Mass/Vol] 208 mg/dL Critically high <=150 [facility] Comment on above: Performed By: #### T SH, CMP, LIPID, FT3 #### [facility] [address] [place] [address] [address] Chana Ceballos VLDL CALC 41.6 mg/dL Normal [facility] Comment on above: Performed By: #### T SH, CMP, LIPID, FT3 #### [facility] [address] [place] [address] [address] Chana Ceballos PROF 14(COMP METB)on 022 Albumin [Mass/Vol] 4.2 g/dL Normal 3.4-5.0 [facility] Comment on above: Performed By: #### T SH, CMP, LIPID, FT3 #### [facility] [address] [place] [address] [address] Chana Ceballos Albumin/Globulin [Mass ratio] 1.2 {ratio} Normal [facility] Comment on above: Performed By: #### T SH, CMP, LIPID, FT3 #### [facility] [address] [place] [address] Dr. Chana Ceballos ALP [Catalytic activity/Vol] 61 U/L Normal 46-116 [facility] Comment on above: Performed By: #### T SH, CMP, LIPID, FT3 #### [facility] [address] [place] [address] Dr. Chana Ceballos ALT [Catalytic activity/Vol] 29 U/L Normal 14-59 [facility] Comment on above: Performed By: #### T SH, CMP, LIPID, FT3 #### [facility] [address] [place] [address] Dr. Chana Ceballos Anion gap [Moles/Vol] 14.3 mmol/L Normal [facility] Comment on above: Performed By: #### T SH, CMP, LIPID, FT3 #### [facility] [address] [place] [address] Dr. Chana Ceballos AST [Catalytic activity/Vol] 17 U/L Normal 15-37 [facility] Comment on above: Performed By: #### T SH, CMP, LIPID, FT3 #### [facility] [address] [place] [address] Dr. Chana Ceballos Bilirubin [Mass/Vol] 0.2 mg/dL Normal 0.2-1.0 [facility] Comment on above: Performed By: #### T SH, CMP, LIPID, FT3 #### [facility] [address] [place] [address] Dr. Chana Ceballos Calcium [Mass/Vol] 9.0 mg/dL Normal 8.5-10.1 [facility] Comment on above: Performed By: #### T SH, CMP, LIPID, FT3 #### [facility] [address] [place] [address] Dr. Chana Ceballos Chloride [Moles/Vol] 103 mmol/L Normal 98-107 [facility] Comment on above: Performed By: #### T SH, CMP, LIPID, FT3 #### [facility] [address] [place] [address] Dr. Chana Ceballos CO2 [Moles/Vol] 25.1 mmol/L Normal 21.0-32.0 [facility] Comment on above: Performed By: #### T SH, CMP, LIPID, FT3 #### [facility] [address] [address] [address] Chana Ceballos Creatinine [Mass/Vol] 0.93 mg/dL Normal 0.55-1.02 [facility] Comment on above: Performed By: #### T SH, CMP, LIPID, FT3 #### [facility] [address] [place] [address] [address] Chana Ceballos EGFR-AF MARTINIQUAIS >60 Normal >=60 [facility] Comment on above: Performed By: #### T SH, CMP, LIPID, FT3 #### [facility] [address] [place] [address] [address] Chana Ceballos EGFR-NON AF MARTINIQUAIS >60 Normal >=60 [facility] Comment on above: Performed By: #### T SH, CMP, LIPID, FT3 #### [facility] [address] [address] [address] Chana Ceballos Globulin (S) [Mass/Vol] 3.4 g/dL Normal [facility] Comment on above: Performed By: #### T SH, CMP, LIPID, FT3 #### [facility] [address] [address] [address] Chana Ceballos Glucose [Mass/Vol] 198 mg/dL Critically high 74-106 [facility] Comment on above: Performed By: #### T SH, CMP, LIPID, FT3 #### [facility] [address] [address] [address] Chana Ceballos Potassium [Moles/Vol] 4.4 mmol/L Normal 3.5-5.1 [facility] Comment on above: Performed By: #### T SH, CMP, LIPID, FT3 #### [facility] [address] [address] [address] Chana Ceballos Protein [Mass/Vol] 7.6 g/dL Normal 6.4-8.2 [facility] Comment on above: Performed By: #### T SH, CMP, LIPID, FT3 #### [facility] [address] [place] [address] [address] Chana Ceballos Sodium [Moles/Vol] 138 mmol/L Normal 136-145 [facility] Comment on above: Performed By: #### T SH, CMP, LIPID, FT3 #### [facility] [address] [place] [address] Dr. Chana Ceballos Urea nitrogen [Mass/Vol] 18.0 mg/dL Normal 7.0-18.0 [facility] Comment on above: Performed By: #### T SH, CMP, LIPID, FT3 #### [facility] [address] [address] [address] Chana Ceballos Urea nitrogen/Creatinine [Mass ratio] 19.4 mg/mg Normal [facility] Comment on above: Performed By: #### T SH, CMP, LIPID, FT3 #### [facility] [address] [address] [address] Chana Ceballos TSHon 10-05-2021 TSH 2.219 uIU/mL Normal 0.358-3.740 [facility] Comment on above: Performed By: #### T SH, CMP, LIPID, FT3 #### [facility] [address] [place] [address] Dr. Chana Ceballos Vital Signs Date Time Vital Sign Value Performing Clinician Facility 07-12-2023 11:25-0400 Diastolic blood pressure 88 mm[Hg] MD Jaja Parry Work Phone: [facility] 07-12-2023 11:25-0400 Heart rate 82 /min MD Jaja Parry Work Phone: [facility] 07-12-2023 11:25-0400 Respiratory rate 16 /min MD Jaja Parry Work Phone: [facility] 07-12-2023 11:25-0400 SaO2% (BldA) [Mass fraction] 99 % MD Jaja Parry Work Phone: [facility] 07-12-2023 11:25-0400 Systolic blood pressure 138 mm[Hg] MD Jaja Parry Work Phone: [facility] 07-12-2023 10:51-0400 Inhaled oxygen flow rate 3 L/min MD Jaja Parry Work Phone: [facility] 07-12-2023 09:56-0400 Body height 167.64 cm MD Jaja Parry Work Phone: [facility] 07-12-2023 09:56-0400 Body weight 108.86 kg MD Jaja Parry Work Phone: [facility] 06-17-2023 08:47-0400 Body height 167.64 cm [facility] 06-17-2023 08:47-0400 Body mass index (BMI) [Ratio] 38.4 kg/m2 [facility] 06-17-2023 08:47-0400 Body weight 108 kg [facility] 05-09-2023 08:58-0400 Body height 167.64 cm [facility] 05-09-2023 08:58-0400 Body mass index (BMI) [Ratio] 38.7 kg/m2 [facility] 05-09-2023 08:58-0400 Body weight 108.94 kg [facility] 07-28-2022 08:15-0400 Body height 167.64 cm Hudson Gu Other [facility] [employer] Other 07-28-2022 08:15-0400 Body mass index (BMI) [Ratio] 38.73 kg/m2 Hudson Gu Other [facility] [employer] Other 07-28-2022 08:15-0400 Body weight 108.86 kg Hudson Gu Other [employer] Other 12-12-2021 13:05-0400 Body height 167.64 cm Liliya Fletcher Other [employer] Other 12-12-2021 13:05-0400 Body mass index (BMI) [Ratio] 35.51 kg/m2 Liliya Fletcher Other [employer] Other 12-12-2021 13:05-0400 Body temperature 97.9 [degF] Liliya Fletcher Other [employer] Other 12-12-2021 13:05-0400 Body weight 99.79 kg Liliya Fletcher Other [employer] Other 12-12-2021 13:05-0400 Diastolic blood pressure 74 mm[Hg] Liliya Fletcher Other [employer] Other 12-12-2021 13:05-0400 Respiratory rate 18 /min Liliya Fletcher Other [employer] Other 12-12-2021 13:05-0400 SaO2% (BldA) [Mass fraction] 99 % Liliya Fletcher Other [employer] Other 12-12-2021 13:05-0400 Systolic blood pressure 138 mm[Hg] Liliya Fletcher Other [employer] Other 2021 12:30-0400 Body height 167.64 cm Dorys Pughault Other [employer] Other 2021 12:30-0400 Body mass index (BMI) [Ratio] 36.31 kg/m2 Dorys Prudencio Other [employer] Other 2021 12:30-0400 Body temperature 97 [degF] Dorys Prudencio Other [employer] Other 2021 12:30-0400 Body weight 102.06 kg Dorys Flannery Other [facility] [employer] Other Encounters Encounter Date Encounter Type Care Provider Facility Start: 10-13-2023 End: 10-13-2023 ambulatory MD Jaja Parry Work Phone: [facility] Work Phone: Start: 10-13-2023 End: 10-13-2023 Patient encounter procedure MD Jaja Parry Work Phone: [facility] Work Phone: Start: 08-01-2023 End: 08-01-2023 ambulatory MD Jaja Parry Work Phone: [facility] Work Phone: Start: 08-01-2023 End: 08-01-2023 Patient encounter procedure MD Jaja Parry Work Phone: [facility] Work Phone: Start: 07-12-2023 Non-patient / Non-visit MD Linnea Parry Work Phone: [facility] Work Phone: Start: 07-12-2023 End: 07-12-2023 Admission to same day surgery center MD Jaja Parry Work Phone: [facility] Work Phone: Start: 07-12-2023 End: 07-12-2023 ambulatory MD Jaja Parry Work Phone: [facility] Work Phone: Start: 06-30-2023 End: 06-30-2023 Patient encounter procedure MD Jaja Parry Work Phone: [facility] Work Phone: Start: 06-17-2023 End: 06-17-2023 ambulatory [facility] Work Phone: Start: 06-17-2023 End: 06-17-2023 Patient encounter procedure [facility] Work Phone: Start: 05-09-2023 End: 05-09-2023 ambulatory [facility] Work Phone: Start: 05-09-2023 End: 05-09-2023 Patient encounter procedure [facility] Work Phone: Start: 02-02-2023 End: 02-02-2023 ambulatory VALORIE JOSEPHO Not Available Start: 07-28-2022 End: 07-28-2022 ambulatory Hudson Gu Other [employer] Other Start: 07-28-2022 Office outpatient vi sit 25 minutes Hudson Gu [facility] Start: 06-23-2022 End: 06-24-[address] JAJA PARRY . Facility:[facility] Start: 06-14-2022 End: 06-14-2022 ambulatory Hudson Gu Other [employer] Other Start: 06-14-2022 Telephone encounter Hudson Gu [facility] Start: 03-09-2022 End: 04-08-2022 ambulatory HUDSON GU Facility:[facility] Start: 02-22-2022 End: 02-23-2022 ambulatory LILIYA HUTTON Facility:[facility] Start: 12-12-2021 Office outpatient vi sit 15 minutes Liliya [facility] Start: 12-12-2021 End: 12-12-2021 ambulatory MD Jaja Parry Work Phone: [employer] Other Start: 12-12-2021 End: 12-12-2021 Patient encounter procedure MD Jaja Parry Work Phone: [facility] Start: 2021 End: 2021 ambulatory Dorys Pughault Other [facility] [employer] Other Start: 2021 Office outpatient ne w 20 minutes Dorys Flannery [facility] [place] Start: 10-07-2021 Encounter for genera l adult medical examination without abnormal findings DR JAJA PARRY . [facility] Start: 10-05-2021 End: 10-06-2021 ambulatory [...] left knee XR knee LT 2V Fir [facility] Start: 10-13-2023 XR Knee - left 2 Views [facility] Start: 07-12-2023 [facility] Patient Education Know your Meds Fel[place] Non Diagnostic Block [facility] Work Phone: Patient referral [facility] Work Phone: Payers Date Payer Category Payer Self-pay 2012 Unknown [id number] 1965 Unknown [id number] 2.16.84 [id number] 1965 Unknown [id number] 2.16.84 [id number] 1965 Unknown [id number] 2.16.84 [id number] 1965 Unknown [id number] 2.16.84 [id number] 1965 Unknown [id number] 1961 Blue Cross Blue Shield [id number] Unknown [place] BC/BS [id number] Unknown [id number] 2.16.8 [id number] Unknown [id number] 2.16.8 [id number] Social History Date Type Detail Facility Sex Assigned At [employer] Other Start: 1965 Sex Assigned At Female F [facility] Goals Date Patient Goal Desired Activity /State Clinical Notes 2021 to 07-12-2023 Note Date & Type Note Facility 07-12-2023 Procedure note [facility] 05-09-2023 Evaluation note Authored May 09, 2023 9:1 6am We performed a 4/1cc Marcain e / Kenalog cortisone injection into the knee joint under sterile technique. Patient tolerated the injection well without adverse reaction. Patient can follow up as needed. Note scribed by ESEQUIEL Valle, reviewed and amended by myself Hudson Gu D.O. [facility] Work Phone: [phone] 999-920806-14-2023 Evaluation note* Encounter Date Diagnosis Assessment Notes [...] tolerated the injection well without adverse reaction. [employer] Other 05-01-2023 Evaluation note* Encounter Date Diagnosis Assessment Notes Treatment Notes Treatment Clinical Notes June, Acute meniscal tear of left knee, initial encounter (ICD-10 - S83.207A) [employer] Other 10-29-2022 Evaluation note* Encounter Date Diagnosis [...] Nov, Other Contusion mater ial was printed [employer] Other 08-28-2022 Evaluation note* Encounter Date Diagnosis [...] COVID POSITIVE education handout discharge instructions. given. [employer] Other Evaluation noteNo assessment information available [facility] Work Phone: Evaluation note* Author Mare Ramirez [facility] Authored May 09, 2023 9:1 6am We performed a 4/1cc Marcain e / Kenalog cortisone injection into the knee joint under sterile technique. Patient tolerated the injection well without adverse reaction. Patient can follow up as needed. Note scribed by ESEQUIEL Valle, reviewed and amended by myself Hudson Gu D.O. [facility] Work Phone: Evaluation note* Diagnosis Onset Date Resolution Status Chronic pain acute Knee pain acute Osteoarthritis of left knee acute Chronic pain acute Contusion of left knee acute Knee pain acute Osteoarthritis of left knee acute [facility] Work Phone: History general Narrative - Reported* Type Description Date Medical History diabetes Surgical History c-sections - 2 Surgical History oophorectomy Surgical History hysterectomy [employer] Other [employer] general Narrative - Reported* Type Description Date Medical History diabetes Medical History high cholesterol Surgical History c-sections - 2 Surgical History oophorectomy Surgical History hysterectomy [employer] Other Chief Complaint and Reason for Visit [...] and content) DATE CREATED AUTHOR 06/27/2022 [facility] pital DATE CREATED AUTHOR AUTHOR'S ORGANIZ ATION 02/03/2023 [facility] DATE CREATED AUTHOR AUTHOR'S ORGANIZ ATION 10/26/2023 [facility] FOR RECORDS PERTAINING TO PATIENTS [...] BE BASED ON THE PRIMARY CLINICAL RECORDS. [facility] [employer] [facility]. provides no warranty or guarantee of the accuracy or completeness of information in this document.
[2024-04-20] MEDS: REGADENOSON 0.4 MG/5 ML SYRINGE IV (10:58)
--- NOTE | 2024-04-20 11:00 | PC.NURSE ---
Nursing Note Cardiac Stress Test Reviewed: Medication, allergies and patient history reviewed. Stress Test: [ z] Patient tolerated stress test well. [ ] Patient unable to tolerate walking on treadmill. Switched to Lexiscan stress test. [z ] No chest pain noted per patient [ ] Chest pain that resolved prior to leaving stress lab. [z ] No dyspnea noted. [ ] Dyspnea that resolved prior to leaving stress lab. [ z] Patient left stress lab asymptomatic and hemodynamically stable. [ ] Patient taken to the Emergency Room due to non-resolving symptoms following stress test. [ ] Patient achieved target heart rate. [ ] Patient unable to achieve target heart rate. [ ] Aminophylline administered as reversal agent to Lexiscan (Regadenoson). [ ] Nitro administered. Nursing Comments:
--- NOTE | 2024-04-21 | PCN_ITS ---
CARDIAC STRESS TEST Requesting Physician: Procedure Date: 04/20/2024 This is a Lexiscan stress test with myocardial perfusion imaging, performed at the [facility], on 04/20/2024. An intravenous line was secured. Baseline vital signs and ECG were obtained. Lexiscan 0.4 mg was infused intravenously, followed by administration of Cardiolite. The patient then went on to obtain myocardial perfusion imaging. Resting heart rate was 70 BPM and maximum heart rate was 83 BPM. Resting blood pressure was 128/78 and peak blood pressure was 132/76. Resting ECG showed normal sinus rhythm without any ischemic ST changes. ECG following infusion of Lexiscan showed normal sinus rhythm without ischemic ST changes. SUMMARY OF THE FINDINGS: 1. No evidence of ischemic EKG changes seen following infusion of Lexiscan. 2. Myocardial perfusion imaging will be reported separately. MTDD
== END 2024-04-20 07:28 | disposition home or self-care (01) ==
LOC: CARD 07:27
PROVIDERS: PCP Family Medicine; Visit Provider Family Medicine
DX: R07.9 Chest pain, unspecified (principal); I10 Essential (primary) hypertension
CPT/HCPCS: 78452; 93017; 93306; A9500; J2785

== ENCOUNTER 2024-06-13 08:26 | Outpatient (OUT) | payer OTHER, SELFPAY ==
[2024-06-13 08:58] LABS: Basophils Percent Auto 0.1 % (0.2-2.0); Hematocrit 39.8 % (36.0-48.0); Hemoglobin 14.4 g/dL (12.0-16.0); Immature Granulocytes Abs Auto 0.07 10^3/uL (0.00-0.03); Immature Granulocytes Pct Auto 0.5 % (0.0-0.5); Lymphocytes Absolute Auto 1.3 10^3/uL (1.2-3.8); Lymphocytes Percent Auto 9.7 % (20.5-60.0); Mean Corpuscular HGB Conc 36.2 g/dL (29.9-35.2); Mean Corpuscular Hemoglobin 30.4 pg (26.7-34.0); Mean Corpuscular Volume 84.1 fL (81.0-99.0); Mean Platelet Volume 11.8 fL (9.5-13.5); Monocytes Absolute Auto 1.1 10^3/uL (0.3-0.8); Monocytes Percent Auto 8.2 % (1.7-12.0); Neutrophils Absolute Auto 10.9 10^3/uL (1.4-6.5); Neutrophils Percent Auto 81.5 % (43.0-75.0); Platelet Count 236 10^3/uL (150-450); Red Blood Count 4.73 10^6/uL (4.20-5.40); Red Cell Distribution Width 11.9 % (11.0-15.0); White Blood Count 13.4 10^3/uL (4.0-11.0)
[2024-06-13 09:33] LABS: Alanine Aminotransferase 24 U/L (14-59); Albumin Globulin Ratio 1.3; Albumin Level 4.1 g/dL (3.4-5.0); Alkaline Phosphatase 93 U/L (46-116); Anion Gap 18.9; Aspartate Amino Transferase 14 U/L (15-37); Bilirubin Total 0.6 mg/dL (0.2-1.0); Calcium 9.5 mg/dL (8.5-10.1); Carbon Dioxide 21.8 mmol/L (21.0-32.0); Chloride 100 mmol/L (98-107); Chol HDL Ratio 4.9; Cholesterol 217 mg/dL (<=200); Estimated GFR (African America 54 (>=60 mL/min/1.73m^2); Estimated GFR (Non-African Ame 45 (>=60 mL/min/1.73m^2); Free T3 2.12 pg/mL (2.18-3.98); Globulin 3.2 g/dL; Glucose 384 mg/dL (74-106); HDL Cholesterol 44 mg/dL (40-60); Potassium 3.7 mmol/L (3.5-5.1); Sodium 137 mmol/L (136-145); Thyroid Stimulating Hormone 0.458 uIU/mL (0.358-3.740); Total Protein 7.3 g/dL (6.4-8.2); Triglycerides 309 mg/dL (<=150); VLDL CHOLESTEROL 61.8 mg/dL
[2024-06-13 09:42] LABS: Estimated Average Glucose 283 mg/dL; Glycohemoglobin A1C 11.5 % (4.5-6.2)
== END 2024-06-13 08:27 | disposition home or self-care (01) ==
LOC: LAB 08:30
PROVIDERS: PCP Family Medicine; Visit Provider Family Medicine
DX: E66.3 Overweight (principal); I10 Essential (primary) hypertension; E11.9 Type 2 diabetes mellitus without complications; G47.33 Obstructive sleep apnea (adult) (pediatric); Z12.12 Encounter for screening for malignant neoplasm of rectum; D64.9 Anemia, unspecified
CPT/HCPCS: 36415; 80053; 80061; 82306; 83036; 83540; 84436; 84443; 84481; 85025

== ENCOUNTER 2024-06-16 12:54 | Emergency (ER) | payer OTHER, SELFPAY ==
[2024-06-16 13:03] VITALS: BP 223/124; PULSE 83; TEMP 36.7; O2SAT 97; BMI 35.8
[2024-06-16 13:35] LABS: Glucometer 244 mg/dL (74-106)
--- NOTE | 2024-06-16 14:06 | ED.GENADUL1 ---
HPI HPI - General Adult General Chief complaint: Weakness Stated complaint: WEAKNESS Time Seen by Provider: 06/16/24 13:18 Source: patient Mode of arrival: walk-in Limitations: no limitations History of Present Illness HPI narrative: The patient is a 58-year-old female with history of fibromyalgia as well as hypertension diabetes is coming to the ER after she followed up with her primary care doctor and apparently she has some acute kidney injury that he explained to her that she have to stop taking NSAIDs and she started taking Tylenol The patient apparently became angry about this and stopped taking her medication The patient denies any history of being suicidal homicidal any thoughts of harming herself but she just wants something for pain The patient emotional talking about her pain and how she is dealing with fibromyalgia Related Data Home Medications ?Medication ?Instructions ?Recorded ?Confirmed blood sugar diagnostic (OneTouch 01/13/23 01/13/23 Verio test strips) flash glucose scanning reader 01/13/23 01/13/23 (AirSig TechnologyStyle Kirsten 2 [place]) flash glucose sensor (AirSig TechnologyStyle 01/13/23 01/13/23 Kirsten 2 Sensor kit) nabumetone 500 mg tablet 500 mg PO BID 01/13/23 06/16/24 Held on 06/16/24. Instructions: due to blood test simvastatin 20 mg tablet 20 mg PO DAILY 01/13/23 06/16/24 insulin glargine 100 unit/mL (3 40 unit subcut DAILY 03/21/24 06/16/24 mL) subcutaneous pen (Basaglar KwikPen U-100 Insulin) insulin lispro 100 unit/mL 1 sliding scale dose subcut 03/21/24 06/16/24 subcutaneous pen (Admelog SoloStar USEASDIRECTD U-100 Insulin lispro) metoprolol tartrate 50 mg tablet 50 mg PO Q12H 03/22/24 06/16/24 triamcinolone acetonide 0.1 % 1 applic topical TID 04/12/24 06/16/24 topical cream Previous Rx's ?Medication ?Instructions ?Recorded prochlorperazine maleate 10 mg 10 mg PO Q12H PRN nausea and 04/13/24 tablet (Compazine) vomiting, headache 7 days #7 tabs promethazine 25 mg rectal 25 mg UT Q6H PRN nausea and 04/13/24 suppository vomiting #6 ea orphenadrine citrate 100 mg 100 mg PO DAILY PRN muscle pain 06/16/24 tablet,extended release #10 tabs tramadol 50 mg tablet 50 mg PO BID PRN pain #2 tabs 06/16/24 Allergies Allergy/AdvReac Type Severity Reaction Status Date / Time cephalexin (From Keflex) Allergy Intermediate Unknown Verified 06/16/24 13:03 lisinopril Allergy Intermediate Unknown Verified 06/16/24 13:03 Opioid HPI Opioid Management Most Recent Opioid Data: Last Pain Scale 7 Today, 14:10 Last ED Pain Assessment Today, 13:26 Last MAR Pain Assessment Today, 14:10 Last ORT Total Score 1 03/22/24, 17:48 Last ORT Risk Category Low Risk 03/22/24, 17:48 Review of Systems ROS Status of ROS 10 or more systems reviewed and unremarkable except as noted in history and below [facility] Medical History (Updated 06/16/24 @ 14:07 by Vielka Galeano MD) Abdominal pain ?R10.9 - Unspecified abdominal pain (ICD-10) Surgical History (Updated 03/22/24 @ 17:53 by Mary Woo) H/O oophorectomy H/O: hysterectomy ?Z90.710 - Acquired absence of both cervix and uterus (ICD-10) Social History Highest level of school completed/degree received: some college, no degree Little interest or pleasure in doing things: several days Feeling down, depressed, or hopeless: several days Exam Narrative Exam Narrative: Nurses notes and vital signs reviewed and patient is not hypoxic. General: Well-appearing and in no apparent distress. Skin: Warm, dry, no pallor noted. No rash. Head: Normocephalic, atraumatic. Neck: Supple, non-tender. Cardiovascular: Regular Rate and Rhythm without murmur, gallop or rub. Respiratory: No accessory muscle use or respiratory distress. Lungs are clear to auscultation, no wheezing, rales or rhonchi Chest Wall: no tenderness Back: No midline thoracic or lumbar vertebral tenderness. No CVA tenderness Musculoskeletal: normal ROM, no calf or popliteal tenderness, no lower extremity edema/swelling GI: Abdomen is soft, non-distended. Normal bowel sounds. No masses appreciated. No tenderness to palpation. No rebound, guarding, or rigidity noted. Neurological: A&O x4. No cranial nerve dysfunction observed. No truncal ataxia. Moves all extremities. Sensation intact. Psychiatric: Emotional, angry Constitutional Vital Signs, click to edit/add: Last Vital Signs Temp 98.1 F 06/16/24 13:03 Pulse 83 06/16/24 13:03 Resp 18 06/16/24 13:03 BP 180/103 H 06/16/24 14:24 Pulse Ox 97 06/16/24 13:03 O2 Del Method Room Air 06/16/24 13:03 Course Vital Signs Vital signs: Vital Signs Temperature 98.1 F 06/16/24 13:03 Pulse Rate 83 06/16/24 13:03 Respiratory Rate 18 06/16/24 13:03 Blood Pressure 223/124 H 06/16/24 13:03 Pulse Oximetry 97 06/16/24 13:03 Oxygen Delivery Method Room Air 06/16/24 13:03 Temperature 98.1 F 06/16/24 13:03 Pulse Rate 83 06/16/24 13:03 Respiratory Rate 18 06/16/24 13:03 Blood Pressure 180/103 H 06/16/24 14:24 Pulse Oximetry 97 06/16/24 13:03 Oxygen Delivery Method Room Air 06/16/24 13:03 Medical Decision Making [facility] Narrative Medical decision making narrative: The patient initially was emotional and angry but I did explain to her that I can give her for the next 2 days tramadol to help controlling her pain but she need to follow-up with her primary care doctor for further evaluation and possible start on Lyrica in case needed The patient also was given Norflex to help controlling her muscle spasm and pain The patient have mild history of acute kidney injury that was seen on previous blood workup that was done recently The patient is to follow up with primary care physician in next 2-3 days or to return to the emergency department should any of the signs or symptoms worsen or new symptoms develop. The patient agrees with the following Diagnosis and Treatment plan and the patient will be discharged home. Lab Data Labs: Lab Results 06/16/24 Range/Units 13:34 POC Glucose 244 H (74-106) mg/dL Discharge Plan Discharge Chief Complaint: Weakness Clinical Impression: Fibromyalgia Patient Disposition: Home, Self-Care Time of Disposition Decision: 14:07 Condition: Good Prescriptions / Home Meds: New orphenadrine citrate 100 mg tablet extended release 100 mg PO DAILY PRN (Reason: muscle pain) Qty: 10 0RF tramadol 50 mg tablet 50 mg PO BID PRN (Reason: pain) Qty: 2 0RF No Action (DME) OneTouch Verio test strips Strip MISCELLANEOUS (DME) FreeStyle Kirsten 2 Sensor Kit MISCELLANEOUS (DME) FreeStyle Kirsten 2 [place] Misc MISCELLANEOUS nabumetone 500 mg tablet 500 mg PO BID simvastatin 20 mg tablet 20 mg PO DAILY insulin glargine [Basaglar KwikPen U-100 Insulin] 100 unit/mL (3 mL) insulin pen 40 unit subcut DAILY insulin lispro [Admelog SoloStar U-100 Insulin] 100 unit/mL insulin pen 1 sliding scale dose subcut USEASDIRECTD metoprolol tartrate 50 mg tablet 50 mg PO Q12H triamcinolone acetonide 0.1 % cream 1 applic TOPICAL TID promethazine 25 mg suppository 25 mg UT Q6H PRN (Reason: nausea and vomiting) Qty: 6 0RF prochlorperazine maleate [Compazine] 10 mg tablet 10 mg PO Q12H PRN (Reason: nausea and vomiting, headache) 7 Days Qty: 7 0RF Print Language: Gambian Instructions: Fibromyalgia (ED) Referrals: Florencio Parry MD [Primary Care Provider, Family Practice] - 1 week Discharge Date/Time: 06/16/24 14:28
[2024-06-16] MEDS: ORPHENADRINE 60 MG/2 ML VIAL IM (14:10)
[2024-06-16] MEDS: TRAMADOL HCL 50 MG TABLET PO (14:10)
[2024-06-16 14:24] VITALS: BP 180/103
== END 2024-06-16 14:28 | disposition home or self-care (01) ==
PROVIDERS: Emergency Provider Emergency Medicine; PCP Family Medicine
DX: M79.7 Fibromyalgia (principal); I10 Essential (primary) hypertension; E11.9 Type 2 diabetes mellitus without complications; Z79.4 Long term (current) use of insulin; Z90.710 Acquired absence of both cervix and uterus
CPT/HCPCS: 36415; 82948; 96372; 99285; J2360

== ENCOUNTER 2024-08-24 09:19 | Outpatient (OUT) | payer MEDICAID, SELFPAY ==
--- NOTE | 2024-08-24 10:10 | MM_ITS ---
Patient Name: RJ PINZON MR#: [id number] : 1965 Exam Date: 08/24/2024 Ordering Doctor: DR JAJA DILL . RADIOLOGY REPORT PROCEDURE: MM TOMOSYNTHESIS SCREENING BI COMPARISON: MG MAMM SCREEN JULIA W CAD, 07/23/2019. MG MAMM SCREEN JULIA W CAD, 06/14/2018. MG MAMM SCREEN JULIA W CAD, 06/10/2017. MAMMO JULIA SCREEN, 02/13/2009. INDICATIONS: Screening Calculator Name NCI Breast Cancer Risk Assessment Tool 5 Year Breast Cancer Risk 1.00% Lifetime Breast Cancer Risk 5.30% Personal Breast Cancer No Personal Ovarian Cancer No Treatments None Family Cancers Mother with cervical cancer at age 71; Father with melanoma cancer at age 75; Cousin-paternal with melanoma cancer at age 70. LOCATION: [facility] BREAST COMPOSITION: There are scattered areas of fibroglandular density. FINDINGS: RIGHT BREAST: No significant suspicious finding. Benign-appearing calcifications are present. Benign-appearing lymph nodes are noted along chest wall. LEFT BREAST: No significant suspicious finding. Benign-appearing calcifications are present. Benign-appearing lymph nodes are noted along chest wall. DIAGNOSTIC CATEGORY 2--BENIGN FINDING: RECOMMENDATIONS: ROUTINE MAMMOGRAM AND CLINICAL EVALUATION IN 12 MONTHS. PLEASE NOTE: A NORMAL MAMMOGRAM DOES NOT EXCLUDE THE POSSIBILITY OF BREAST CANCER. A CLINICALLY SUSPICIOUS PALPABLE LUMP SHOULD BE BIOPSIED. Dictated by: Bernardo Camacho MD on 08/24/2024 at 10:39 Approved by: Bernardo Camacho MD on 08/24/2024 at 10:43
== END 2024-08-24 09:20 | disposition home or self-care (01) ==
PROVIDERS: PCP Family Medicine; Visit Provider Family Medicine
DX: Z12.31 Encounter for screening mammogram for malignant neoplasm of breast (principal); Z80.8 Family history of malignant neoplasm of other organs or systems
CPT/HCPCS: 77063; 77067

== ENCOUNTER 2024-09-05 07:53 | Emergency (ER) | payer MEDICAID, SELFPAY ==
--- OUTSIDE RECORDS SUMMARY | 2024-08-10 09:22 | XMS_ITS ---
Author Organization [facility] in [place] Address [address] [place] [address] Care Team Providers Care Animal Care Technician Name Role Phone Quincy Parry Primary Care Provider [phone] REASON FOR VISIT rf lantus Medications Medication SIG (Take, Route, Frequency, Duration) Notes Start Date End Date Status Lantus SoloStar 100 UNIT/ML Inject 60 units Subcutaneous once daily for 50 days Active Encounters Encounter Location Date Provider Diagnosis [facility] [address] [place] [address] 08/10/2024 Quincy Parry Over weight E66. 3 Assessments Encounter Date Diagnosis (ICD Code) Assessment Notes Treatment Notes Treatment Clinical Notes Section Notes 08/10/2024 Over weight (ICD-10 - E66.3) Plan Of Treatment Medication Medication Name Sig Start Date Stop Date Notes Lantus SoloStar 100 UNIT/ML Inject 60 un its Subcutaneous once daily for 50 days Progress Notes * Susanne PINZON GDOB:[birth year] (58 yo F)Acc No.[id number]:08/10/2024 Patient: Cm Susanne FRASER :1965 A ge:58 Y S ex:Female Address:[address] [place] [address] [address], [place], [address] * Refills Refill Lantus SoloStar Solution Pen-injector, 100 UNIT/ML, 30 Milliliter, Inject 60 units Subcutaneous once daily, 50 days, Refills=7 * true * Date: Generated for Arnel edwards/Vahe/[place] on: 0 09/05/2024 08:00 AM EDT
--- OUTSIDE RECORDS SUMMARY | 2024-08-14 04:04 | XMS_ITS ---
Author Organization [facility] in [place] Address [address] [place] [address] Care Team Providers Care Medical Policy Specialist Name Role Phone Quincy Parry Primary Care Provider REASON FOR VISIT refill Medications Medication SIG (Take, Route, Frequency, Duration) Notes Start Date End Date Status Acetaminophen-Codeine 300-30 MG 1 tablet as needed Orally every 6 hrs for 7 days M17.1 08/14/2024 Active Encounters Encounter Location Date Provider Diagnosis [address] [address] 08/14/2024 Quincy Sohan Plan Of Treatment Medication Medication Name Sig Start Date Stop Date Notes Acetaminophen-Codeine 300-30 MG 1 tablet as needed Orally every 6 hrs for 7 days 08/14/2024 Progress Notes * Susanne PINZON GDOB:[birth year] (58 yo F)Acc No.[id number]:08/14/2024 Patient: Cm Susanne FRASER :1965 A ge:58 Y S ex:Female Address:[address] [place] [address] [address], [place], [address] * Refills Refill Acetaminophen-Codeine Tablet, 300-30 MG, Orally, 28 Tablet, 1 tablet as needed, every 6 hrs, 7 days, Refills=0 * true * Date: Generated for Printi ng/Faalessandrog/eTransmitting on: 0 09/05/2024 08:00 AM EDT
--- OUTSIDE RECORDS SUMMARY | 2024-08-26 12:30 | XMS_ITS ---
Author Organization [facility] [place] Address [address] [place] [address] Care Team Providers Care Formula Technician Name Role Phone Quincy Parry Primary Care Provider REASON FOR VISIT Mammogram Results Encounters Encounter Location Date Provider Diagnosis [facility] [address] [place] [address] 08/26/2024 Quincy Parry Plan Of Treatment No Information Progress Notes * Susanne PINZON GDOB:[birth year] (58 yo F)Acc No.[id number]:08/26/2024 Patient: Cm FRASERSusanne Ashkan :1965 A ge:58 Y S ex:Female Address:[address] [place] [address] [address], [place], [address] * true * Date: Generated for Arnel edwards/Vahe/eTransmitting on: 0 09/05/2024 08:00 AM EDT
[2024-09-05] VITALS (22 sets, daily range): BP systolic 104–172; BP diastolic 68–78; PULSE 94–103; TEMP 36.9; O2SAT 67–99; BMI 36.3
--- OUTSIDE RECORDS SUMMARY | 2024-09-05 08:00 | XMS_ITS | Clinical Summary ---
Author Organization [facility] Address [address] [address] Care Team Providers Care Oil Lease Buyer Name Role Phone Florencio Parry MD Primary Care Provider [phone] Allergies Active Allergy Reactions Criticality Noted Date Comments Cephalexin 02/02/2023 Other Reaction(s): back pain Lisinopril 02/02/2023 Other Reaction(s): Unknown Medications simvastatin (Zocor) 20 MG tablet Take 20 mg by mouth at bedtime Active buPROPion XL (Wellbutrin XL) 300 MG 24 hr tablet Take 300 mg by mouth in the morning. Active Jardiance 10 MG Take 10 mg by mouth in the morning. 3 Active Januvia 100 MG tablet Take 100 mg by mouth in the morning. Active sertraline (Zoloft) 100 MG tablet Take 100 mg by mouth 1 (one) time each day at the same time Active ARIPiprazole (Abilify) 5 MG tablet Take 5 mg by mouth in the morning. Active pioglitazone (Actos) 45 MG tablet Take 45 mg by mouth in the morning. Active metFORMIN (Glucophage) 500 MG tablet Take 1,000 mg by mouth in the morning. Take with meals. Active Pediatric Multivitamins-F l (MultiVitamin + Fluoride) 0.25 MG chewable tablet Multivitamin A ctive Tart Thapa 1200 MG capsule Tart Thapa Ac tive Active Problems No known active problems Encounters Date Type Department Care Team Description 07/12/2024 11:00 AM EDT Office Visit [facility] [address] [place] [id number] Adrien Jacques DPM Venous insufficiency (Primary Dx); Diabetes mellitus due to underlying condition with diabetic polyneuropathy, without long-term current use of insulin (HCC); Pain due to onychomycosis of toenails of both feet 07/12/2024 Bamboo flowsheet [facility] [address] [facility] [address] [place] [address] Adrien Jacques DPM 07/12/2024 Travel from Last 3 Months Family History Medical History Relation Name Comments Diabetes Father Heart disease Father Hypertension Father Kidney disease Father Cancer Mother Stroke Mother Relation Name Status Comments Father Mother Alive Social History Tobacco Use Types Packs/Day Years Used Date Smoking Tobacco: Some Days Cigarettes Tobacco Cessation:Ready to Q uit: Not Asked; Counseling Given: Yes Comments:5 or less cigarettes/day Comments Unknown Sex and Gender Information Value Date Recorded Sex Assigned at Not on file Legal Sex Female 7:07 PM EDT Gender Identity Not on file Sexual Orientation Not on file Last Filed Vital Signs Vital Sign Reading Time Taken Comments Blood Pressure - - Pulse - - Temperature - - Respiratory Rate 18 07/12/2024 10:10 AM EDT Oxygen Saturation - - Inhaled Oxygen Concentration - - Weight 109 kg (240 lb) 07/12/2024 10:10 AM EDT Height 167.6 cm (5' 6 ) 07/12/2024 10:10 AM EDT Body Mass Index 38.74 07/12/2024 10:10 AM EDT Plan of Treatment Upcoming Encounters Date Type Department Care Team ([facility] st Contact Info) Description 09/20/2024 10:20 AM EDT Office Visit [facility] [address] [facility] [address] [place] [id number] Adrien Jacques DPM [address] [facility] [address] [place] [address] Health Maintenance Due Date Last Done Comments CT Colonography 1963 Colonoscopy 1963 Colorectal Cancer Screening 1963 FIT-DNA 1963 FIT 1963 FOBT 1963 Sigmoidoscopy 1963 Pap Smear 10/10/1984 Cervical Cancer Screening 10/10/1993 HPV/Cotest 10/10/1993 Mammogram 2003 Influenza Vaccine (#1) 2024 4, 11/01/2022, 12/07/2021, Additional history exists Insurance Care Teams Oil Lease Buyer Relationship Specialty Start Date End Date Florencio Parry MD [address] [place] [id number] PCP - General Family Medicine 02/02/23
--- OUTSIDE RECORDS SUMMARY | 2024-09-05 08:01 | XMS_ITS | Patient Health Record ---
Author Organization [facility] in [place] Address [address] [place] [address] Care Team Providers Care Etl Manager Name Role Phone Quincy Parry Primary Care Provider [phone] Allergies Allergen (clinical drug ingredient) Drug/Non Drug Allergy documented on EMR Reaction Allergy Type Onset Date Status Keflex back pain Drug Allergy Active lisinopril Lisinopril Unknown Drug Allergy Activ e tramadol traMADol oral lesions Drug Allergy Acti ve Results Component Value Reference Range Notes BNP Reviewed date:03/21/2024 05:16:30 PM Interpretation: Performing Lab: Notes/Report: [facility] , NT Pro B Type Natriuretic Pept 70.0 <=900.0 pg/mL Performing Lab: see note ML - [facility] LB CBC AUTO DIFF Reviewed date:03/21/2024 05:16:30 PM Interpretation: Performing Lab: Notes/Report: [facility] , White Blood Count 12.6 4.0-11.0 10 3/uL Red Blood Count 5.21 4.20-5.40 10 6/uL Hemoglobin 15.5 12.0-16.0 g/dL Hematocrit 44.8 36.0-48.0 % Mean Corpuscular Volume 86.0 81.0-99.0 fL Mean Corpuscular Hemoglobin 29.8 26.7-34.0 pg Mean Corpuscular HGB Conc 34.6 29.9-35.2 g/dL Red Cell Distribution Width 11.9 11.0-15.0 % Platelet Count 228 150-450 10 3/uL Mean Platelet Volume 11.3 9.5-13.5 fL Neutrophils Percent Auto 76.1 43.0-75.0 % Lymphocytes Percent Auto 14.9 20.5-60.0 % Monocytes Percent Auto 8.1 1.7-12.0 % Eosinophils Percent Auto 0.1 0.9-7.0 % Basophils Percent Auto 0.2 0.2-2.0 % Immature Granulocytes Pct Auto 0.6 0.0-0.5 % Neutrophils Absolute Auto 9.6 1.4-6.5 10 3/uL Lymphocytes Absolute Auto 1.9 1.2-3.8 10 3/uL Monocytes Absolute Auto 1.0 0.3-0.8 10 3/uL Eosinophils Absolute Auto 0.0 0.0-0.7 10 3/uL Basophils Absolute Auto 0.0 0.0-0.1 10 3/uL Immature Granulocytes Abs Auto 0.07 0.00-0.03 10 3/uL Performing Lab: see note ML - [facility] LB CRP Reviewed date:03/21/2024 05:16:30 PM Interpretation: Performing Lab: Notes/Report: [facility] , C Reactive Protein <0.50 <=0.50 mg/dL Performing Lab: see note ML - [facility] LB LIPASE Reviewed date:03/21/2024 05:16:30 PM Interpretation: Performing Lab: Notes/Report: [facility] , Lipase 40.0 16.0-77.0 U/L Performing Lab: see note ML - [facility] LB PROF 14(COMP METB) Reviewed date:03/21/2024 05:16:30 PM Interpretation: Performing Lab: Notes/Report: [facility] , Sodium 136 136-145 mmol/L Potassium 4.0 3.5-5.1 mmol/L Chloride 99 98-107 mmol/L Carbon Dioxide 22.5 21.0-32.0 mmol/L Anion Gap 18.5 Glucose 291 74-106 mg/dL Blood Urea Nitrogen 19.0 7.0-18.0 mg/dL Creatinine 0.95 0.55-1.02 mg/dL Estimated GFR ( Katty >60 >=60 mL/min/1.73m 2 Estimated GFR (Non- Tuyet >60 >=60 mL/min/1.73m 2 BUN Creatinine Ratio 20.0 Calcium 8.8 8.5-10.1 mg/dL Bilirubin Total 0.6 0.2-1.0 mg/dL Aspartate Amino Transferase 26 15-37 U/L Alanine Aminotransferase 32 14-59 U/L Alkaline Phosphatase 74 46-116 U/L Total Protein 7.5 6.4-8.2 g/dL Albumin Level 3.9 3.4-5.0 g/dL Globulin 3.6 Albumin Globulin Ratio 1.1 Performing Lab: see note ML - [facility] LB Prothrombin Time INR Reviewed date:03/21/2024 05:16:30 PM Interpretation: Performing Lab: Notes/Report: [facility] , Prothrombin Time 11.1 9.0-11.6 sec INR 1.05 DESIRED INR: 2.0-3.0 CONDITIONS NOT LISTED BELOW 2.5-3.5 FOR PROSTHETIC HEART VALVE REPLACEMENT 2.5-3.5 RECURRENT THROMBOSIS Performing Lab: see note ML - [facility] LB Troponin I High Sensitivity Reviewed date:03/21/2024 05:16:30 PM Interpretation: Performing Lab: Notes/Report: [facility] , Troponin I High Sensitivity 7.3 4.0-51.3 pg/mL CUT-OFF POINTS HAVE BEEN ESTABLISHED BASED ON THE FOURTH UNIVERSAL DEFINITION OF MYOCARDIAL INFARCTION. THE UPPER REFERENCE LIMIT (URL) OF TROPONIN, DEFINED THE 99TH PERCENTILE OF cTnI DISTRIBUTION IN A REFERENCE POPULATION, HAS BEEN CONFIRMED THE DECISION THRESHOLD FOR PR DIAGNOSIS. 99TH PERCENTILE = 51.4 PG/ML NOTE: HIGH-SENSITIVITY TROPONIN ASSAY IS NOT INTENDED TO BE USED IN ISOLATION BUT SHOULD BE INTERPRETED IN CONJUNCTION WITH OTHER DIAGNOSTIC AND CLINICAL INFORMATION. Performing Lab: see note ML - [facility] LB UA (CLEAN or CATCH) BUSINESS ANALYTICS INTERN or M ICRO IF IND. Reviewed date:03/22/2024 06:44:51 PM Interpretation: Performing Lab: Notes/Report: [facility] , Color Urine YELLOW YELLOW Clarity Urine CLEAR CLEAR Specific Spurgeon Urine 1.025 1.005-1.025 pH Urine 6.0 5.0-9.0 Protein Urine NEGATIVE NEG/TRACE mg/dL Glucose Urine UA >=1000 NEGATIVE mg/dL Bilirubin Urine NEGATIVE NEGATIVE Ketones Urine TRACE NEGATIVE mg/dL Blood Urine NEGATIVE NEGATIVE Nitrite Urine NEGATIVE NEGATIVE Urobilinogen Urine 0.2 0.2-1.0 EU/dL Leukocyte Esterase Urine NEGATIVE NEGATIVE Urine Microscopic Indicated NO Performing Lab: see note ML - [facility] LB LACTATE or LACTIC ACID Reviewed date:03/23/2024 08:52:54 AM Interpretation: Performing Lab: Notes/Report: N [facility] , Lactate/Lactic Acid 1.6 0.4-2.0 mmol/L Performing Lab: see note ML - [facility] LB Blood Culture 1 Reviewed date:03/28/2024 10:01:42 PM Interpretation: Performing Lab: Notes/Report: [facility] , Blood Culture 1 See Below For Report Blood Culture 1 NG5D NO GROWTH AT 5 DAYS.^NO GROWTH AT 5 DAYS. Performing Lab: see note - [facility] LB Blood Culture 2 Reviewed date:03/28/2024 10:01:42 PM Interpretation: Performing Lab: Notes/Report: [facility] , Blood Culture 2 See Below For Report Blood Culture 2 NG5D NO GROWTH AT 5 DAYS.^NO GROWTH AT 5 DAYS. Performing Lab: see note - [facility] LB LIPASE Reviewed date:04/15/2024 12:55:22 PM Interpretation: Performing Lab: Notes/Report: [facility] , Lipase 31.0 16.0-77.0 U/L Performing Lab: see note - [facility] LB PROF 14(COMP METB) Reviewed date:04/15/2024 12:55:22 PM Interpretation: Performing Lab: Notes/Report: [facility] , Sodium 135 136-145 mmol/L Potassium 3.7 3.5-5.1 mmol/L Chloride 100 98-107 mmol/L Carbon Dioxide 21.5 21.0-32.0 mmol/L Anion Gap 17.2 Glucose 329 74-106 mg/dL Blood Urea Nitrogen 14.0 7.0-18.0 mg/dL Creatinine 0.82 0.55-1.02 mg/dL Estimated GFR ( Katty >60 >=60 mL/min/1.73m 2 Estimated GFR (Non- Tuyet >60 >=60 mL/min/1.73m 2 BUN Creatinine Ratio 17.1 Calcium 8.5 8.5-10.1 mg/dL Bilirubin Total 1.0 0.2-1.0 mg/dL Aspartate Amino Transferase 39 15-37 U/L Alanine Aminotransferase 35 14-59 U/L Alkaline Phosphatase 68 46-116 U/L Total Protein 6.9 6.4-8.2 g/dL Albumin Level 3.7 3.4-5.0 g/dL Globulin 3.2 Albumin Globulin Ratio 1.2 Performing Lab: see note - [facility] LB Manual Differential Reviewed date:04/15/2024 12:55:22 PM Interpretation: Performing Lab: Notes/Report: [facility] , Segmented Neutrophils % Manual 94.0 43.0-75.0 Lymphocytes Percent Manual 2.0 20.5-60.0 % Monocytes Percent Manual 2.0 1.7-12.0 % Eosinophils Percent Manual 2.0 0.9-7.0 % Basophils Percent Manual 0.0 0.2-2.0 % Segmented Neut Absolute Manual 5.92 1.4-6.5 10 3/uL Band Neutrophils Absolute 0.1 0.0-0.3 10 3/uL Lymphocytes Absolute Manual 0.12 1.20-3.80 10 3/uL Monocytes Absolute Manual 0.12 0.30-0.80 10 3/uL Eosinophils Absolute Manual 0.12 0.00-0.70 10 3/uL Basophils Abs Manual 0.00 0.00-0.10 1 0 3/uL Performing Lab: see note - [facility] LB CBC AUTO DIFF Reviewed date:06/13/2024 05:17:46 PM Interpretation: Performing Lab: Notes/Report: [facility] , White Blood Count 13.4 4.0-11.0 10 3/uL Red Blood Count 4.73 4.20-5.40 10 6/uL Hemoglobin 14.4 12.0-16.0 g/dL Hematocrit 39.8 36.0-48.0 % Mean Corpuscular Volume 84.1 81.0-99.0 fL Mean Corpuscular Hemoglobin 30.4 26.7-34.0 pg Mean Corpuscular HGB Conc 36.2 29.9-35.2 g/dL Red Cell Distribution Width 11.9 11.0-15.0 % Platelet Count 236 150-450 10 3/uL Mean Platelet Volume 11.8 9.5-13.5 fL Neutrophils Percent Auto 81.5 43.0-75.0 % Lymphocytes Percent Auto 9.7 20.5-60.0 % Monocytes Percent Auto 8.2 1.7-12.0 % Eosinophils Percent Auto 0.0 0.9-7.0 % Basophils Percent Auto 0.1 0.2-2.0 % Immature Granulocytes Pct Auto 0.5 0.0-0.5 % Neutrophils Absolute Auto 10.9 1.4-6.5 10 3/uL Lymphocytes Absolute Auto 1.3 1.2-3.8 10 3/uL Monocytes Absolute Auto 1.1 0.3-0.8 10 3/uL Eosinophils Absolute Auto 0.0 0.0-0.7 10 3/uL Basophils Absolute Auto 0.0 0.0-0.1 10 3/uL Immature Granulocytes Abs Auto 0.07 0.00-0.03 10 3/uL Performing Lab: see note ML - [facility] LB TSH Reviewed date:06/13/2024 05:17:46 PM Interpretation: Performing Lab: Notes/Report: [facility] , Thyroid Stimulating Hormone 0.458 0.358-3.740 uIU/mL Performing Lab: see note ML - [facility] LB T4 Reviewed date:06/13/2024 05:17:46 PM Interpretation: Performing Lab: Notes/Report: [facility] , T4 Thyroxine 7.20 4.80-13.90 ug/dL Performing Lab: see note ML - [facility] IRON Reviewed date:06/13/2024 05:17:46 PM Interpretation: Performing Lab: Notes/Report: [facility] , Iron 54.0 50.0-170.0 ug/dL Performing Lab: see note ML - [facility] LB GLYCOHEMOGLOBIN A1C Reviewed date:06/13/2024 05:17:46 PM Interpretation: Performing Lab: Notes/Report: [facility] , Glycohemoglobin A1C 11.5 4.5-6.2 % ADA RECOMMENDED LIMIT 4.0 - 6.0 ADA THERAPEUTIC TARGET < 7.0 ACTION SUGGESTED > 7.0 Estimated Average Glucose 283 Performing Lab: see note ML - [facility] FREE T3 Reviewed date:06/13/2024 05:17:46 PM Interpretation: Performing Lab: Notes/Report: [facility] , Free T3 2.12 2.18-3.98 pg/mL Performing Lab: see note ML - [facility] LB CA echo doppler complete Reviewed date:04/22/2024 10:20:54 AM Interpretation: Performing Lab: Notes/Report: Source Facility: [facility]-[address] [place] [address] [place] [address] Cardiology Report Signed Patient: SUSANNE PINZON MR#: [id number] : 1965 Acct:[id number] Age/Sex: 58 / F ADM Date: 04/20/24 Loc: CARD Attending Dr: Jaja Parry M.D. Ordering Physician: Jaja Parry M.D. Date of Service: 04/20/24 Procedure(s): CA echo doppler complete Accession Number(s): [id number] cc: Jaja Parry M.D. Patient Name: SUSANNE PINZON MR#: [id number] : 1965 Exam Date: 04/20/2024 Ordering Doctor: DR Jaja Parry . ECHOCARDIOGRAM REPORT PROCEDURE: CA ECHO DOPPLER COMPLETE INDICATIONS: Essential hypertension, diabetes COMPARISON: None. DESCRIPTION: COMPLETE ECHOCARDIOGRAM Real-time transthoracic echocardiography with 2D, M-mode, spectral and color flow Doppler performed. QUALITY: Technical quality was good. LEFT VENTRICLE: Normal chamber size. Mild to moderate concentric hypertrophy. Normal systolic function. LV EF: Normal left ventricular ejection fraction, (>55%). DIASTOLIC: Normal diastolic function. ATRIAL SEPTUM: LEFT ATRIUM: Normal chamber size. RIGHT ATRIUM: Normal chamber size. RIGHT VENTRICLE: Normal chamber size. Normal right ventricular systolic function. TRICUSPID VALVE: Normal mobility and thickness. No stenosis with no regurgitation. Unable to assess right-sided pressures due to lack of measurable tricuspid regurgitation. MITRAL VALVE: Normal mobility and thickness. No evidence of mitral valve stenosis. There is no mitral annular calcification. No mitral regurgitation. AORTIC VALVE: Normal trileaflet appearance. No visible sclerosis. Normal leaflet mobility. No evidence of aortic valve stenosis. No aortic regurgitation. AORTIC ROOT: Normal diameter and appearance. Ascending aorta is normal in size, measuring 2.9 cm. PULMONIC VALVE: Normal thickness and mobility. No stenosis. Trivial regurgitation. PERICARDIUM: No evidence of pericardial effusion. IVC: Not well visualized. PLEURA: CONCLUSION: 1. Mild to moderate concentric left ventricular hypertrophy with normal systolic function. Estimated LVEF is 65%. 2. Normal right ventricular size and systolic function. 3. No significant valvular dysfunction. 4. No pericardial effusion. 5. Unable to assess right-sided pressures due to lack of measurable tricuspid regurgitation. Adult Echocardiography Procedure Report Left Ventricle LVEDD (3.7 - 5.6 cm): 3.22 cm LVESD (2.2 - 4.0 cm): 2.37 cm LVIVS thickness (0.6 - 1.2 cm): 1.51 cm LVPW thickness (0.5 - 1.0 cm): 1.13 cm e': 0.10 m/s E - e': 6.90 LVOT Max Gradient: 3.90 mm[Hg] LVOT Area (cm2): 0.99 m/s Peak Velocity (LVOT): 0.99 m/s Mean Velocity (LVOT): 0.67 m/s LVOT Diameter 2.44 cm Left Atrium LA Volume Index (2D A2C): 27.97 ml/m2 Left Atrium Systolic Dimension: 3.37 cm Mitral Valve MV E to A Ratio: 0.96 Mitral Valve A-Wave Peak Velocity: 0.70 m/s Mitral Valve E-Wave Peak Velocity: 0.67 m/s Right Ventricle Aorta AO Root Diam: 3.28 cm Ascending Ao Diam: 2.90 cm Aortic Valve AoV Area (Peak Ceasar): 4.47 cm2, 4.47 cm2 AoV Area (VTI): 4.47 cm2, 4.47 cm2 Peak Velocity(Antegrade Flow): 1.03 m/s Peak Gradient(Antegrade Flow): 4.25 mm[Hg] Mean Velocity(Antegrade Flow): 0.66 m/s Mean Gradient(Antegrade Flow): 2.10 mm[Hg] Velocity Time Integral: 23.24 cm Tricuspid Valve Pulmonic Valve Mean Gradient: 2.23 mm[Hg] Mean Velocity: 0.69 m/s Peak Velocity: 1.03 m/s, 1.07 m/s Peak Gradient: 4.57 mm[Hg], 4.21 mm[Hg] Right Atrium Right Atrium Systolic Pressure: 34.86 ml, 34.86 ml Dictated by: Diana Barajas M.D. on 04/20/2024 at 17:23 Approved by: Diana Barajas M.D. on 04/20/2024 at 17:26 Dictated By: DIANA BARAJAS Signed By: 04/20/241726 DD/ 25 TD/TT: Train Electronic Technician: The [address] [address] Cardiology Report Signed Patient: MADAN PINZON MR#: [id number] : 1965 Acct:[id number] Age/Sex: 58 / F ADM Date: 04/20/24 Loc: CARD Attending Dr: Christal Parry M.D. Ordering Physician: Jaja Parry M.D. Date of Service: 04/20/24 Procedure(s): CA ech o doppler complete Accession Number(s): [id number] cc: Jaja Parry M.D. Patient Name: SUSANNE PINZON MR#: [id number] : 1965 Exam Date: 04/20/2024 Ordering Doctor: DR Jjaa Parry . ECHOCARDIOGRAM REPORT PROCEDURE: CA ECHO DOPPLER COMPLETE INDICATIONS: Essenti al hypertension, diabetes COMPARISON: None. DESCRIPTION: COMPLET E ECHOCARDIOGRAM Real-time transthoracic echocardiography wit h 2D, M-mode, spectral and color flow Doppler performed. QUALITY: Technical quality was good. LEFT VENTRICLE: Norm al chamber size. Mild to moderate concentric hypertrophy. Normal systolic function. LV EF: Normal left ventricular ejection fraction, (>55%). DIASTOLIC: Normal diastolic function. ATRIAL SEPTUM: LEFT ATRIUM: Normal chamber size. RIGHT ATRIUM: Normal chamber size. RIGHT VENTRICLE: Nor mal chamber size. Normal right ventricular systolic function. TRICUSPID VALVE: Nor mal mobility and thickness. No stenosis with no regurgitation. Unabl e to assess right-sided pressures due to lack of measurable tricuspid regurgitation. MITRAL VALVE: Normal mobility and thickness. No evidence of mitral valve stenosis. There is n o mitral annular calcification. No mitral regurgitation. AORTIC VALVE: Normal trileaflet appearance. No visible sclerosis. Normal leaflet mobility. No evidence of aortic valve stenosis. No aortic regurgitation. AORTIC ROOT: Normal diameter and appearance. Ascending aorta is normal in size, measuring 2.9 cm. PULMONIC VALVE: Norm al thickness and mobility. No stenosis. Trivial regurgitation. PERICARDIUM: No evid ence of pericardial effusion. IVC: Not well visualized. PLEURA: CONCLUSION: 1. Mild to moderate concentric left ventricular hypertrophy with normal systolic function. Estimated LVEF is 65%. 2. Normal right ventricular size and systolic function. 3. No significant valvular dysfunction. 4. No pericardial effusion. 5. Unable to assess right-sided pressures due to lack of measurable tricuspid regurgitation. Adult Echocardiograp hy Procedure Report Left Ventricle LVEDD (3.7 - 5.6 cm) : 3.22 cm LVESD (2.2 - 4.0 cm) : 2.37 cm LVIVS thickness (0.6 - 1.2 cm): 1.51 cm LVPW thickness (0.5 - 1.0 cm): 1.13 cm e': 0.10 m/s E - e': 6.90 LVOT Max Gradient: 3 .90 mm[Hg] LVOT Area (cm2): 0.99 m/s Peak Velocity (LVOT) : 0.99 m/s Mean Velocity (LVOT) : 0.67 m/s LVOT Diameter 2.44 cm Left Atrium LA Volume Index (2D A2C): 27.97 ml/m2 Left Atrium Systolic Dimension: 3.37 cm Mitral Valve MV E to A Ratio: 0.96 Mitral Valve A-Wave Peak Velocity: 0.70 m/s Mitral Valve E-Wave Peak Velocity: 0.67 m/s Right Ventricle Aorta AO Root Diam: 3.28 cm Ascending Ao Diam: 2 .90 cm Aortic Valve AoV Area (Peak Ceasar): 4.47 cm2, 4.47 cm2 AoV Area (VTI): 4.47 cm2, 4.47 cm2 Peak Velocity(Antegr twyla Flow): 1.03 m/s Peak Gradient(Antegr twyla Flow): 4.25 mm[Hg] Mean Velocity(Antegr twyla Flow): 0.66 m/s Mean Gradient(Antegr twyla Flow): 2.10 mm[Hg] Velocity Time Integr al: 23.24 cm Tricuspid Valve Pulmonic Valve Mean Gradient: 2.23 mm[Hg] Mean Velocity: 0.69 m/s Peak Velocity: 1.03 m/s, 1.07 m/s Peak Gradient: 4.57 mm[Hg], 4.21 mm[Hg] Right Atrium Right Atrium Systoli c Pressure: 34.86 ml, 34.86 ml Dictated by: Diana Barajas M.D. on 04/20/2024 at 17:23 Approved by: Diana Barajas M.D. on 04/20/2024 at 17:26 Dictated By: DIANA BARAJAS Signed By: 04/20/24 1727 DD/ 25 TD/TT: Train Electronic Technician: Venous Blood Gas Reviewed date:04/15/2024 12:55:22 PM Interpretation: Performing Lab: Notes/Report: [facility] , pH VBG 7.389 7.330-7.430 PCO2 VBG 38.1 40.0-52.0 mmHg Performing Lab: see note - [facility] LB UA RANDOM W or MICROSCOPIC Reviewed date:04/13/2024 01:06:56 PM Interpretation: Performing Lab: Notes/Report: [facility] , Color Urine LT. YELLOW YELLOW Clarity Urine CLEAR CLEAR Specific Spurgeon Urine 1.020 1.005-1.025 pH Urine 5.5 5.0-9.0 Protein Urine NEGATIVE NEG/TRACE mg/dL Glucose Urine UA >=1000 NEGATIVE mg/dL Bilirubin Urine NEGATIVE NEGATIVE Ketones Urine NEGATIVE NEGATIVE mg/dL Blood Urine NEGATIVE NEGATIVE Nitrite Urine NEGATIVE NEGATIVE Urobilinogen Urine 0.2 0.2-1.0 EU/dL Leukocyte Esterase Urine NEGATIVE NEGATIVE WBC Urine 0-2 NONE SEEN #/HPF RBC Urine NONE SEEN 0-2 #/HPF Bacteria Urine TRACE NONE SEEN #/HPF Mucus Urine NONE SEEN NONE SEEN Squamous Epithelial Cell Urine FEW NONE/RARE #/LPF Crystals Seen? None Seen None Seen #/HPF Cast Seen? NONE SEEN NONE SEEN #/LPF Urine Culture Indicated NO Performing Lab: see note - [facility] LB LACTATE or LACTIC ACID Reviewed date:04/15/2024 12:55:22 PM Interpretation: Performing Lab: Notes/Report: [facility] , Lactate/Lactic Acid 1.5 0.4-2.0 mmol/L Performing Lab: see note - [facility] LB CBC AUTO DIFF Reviewed date:04/15/2024 12:55:22 PM Interpretation: Performing Lab: Notes/Report: [facility] , White Blood Count 6.3 4.0-11.0 10 3/uL Red Blood Count 4.96 4.20-5.40 10 6/uL Hemoglobin 14.9 12.0-16.0 g/dL Hematocrit 42.5 36.0-48.0 % Mean Corpuscular Volume 85.7 81.0-99.0 fL Mean Corpuscular Hemoglobin 30.0 26.7-34.0 pg Mean Corpuscular HGB Conc 35.1 29.9-35.2 g/dL Red Cell Distribution Width 12.7 11.0-15.0 % Platelet Count 171 150-450 10 3/uL Mean Platelet Volume 12.2 9.5-13.5 fL Performing Lab: see note - [facility] LB PROF 14(COMP METB) Reviewed date:04/13/2024 01:06:56 PM Interpretation: Performing Lab: Notes/Report: [facility] , Sodium 133 136-145 mmol/L Potassium 4.5 3.5-5.1 mmol/L Chloride 99 98-107 mmol/L Carbon Dioxide 22.8 21.0-32.0 mmol/L Anion Gap 15.7 Glucose 345 74-106 mg/dL Blood Urea Nitrogen 16.0 7.0-18.0 mg/dL Creatinine 1.00 0.55-1.02 mg/dL Estimated GFR ( Katty >60 >=60 mL/min/1.73m 2 Estimated GFR (Non- Tuyet 57 >=60 mL/min/1.73m 2 BUN Creatinine Ratio 16.0 Calcium 8.7 8.5-10.1 mg/dL Bilirubin Total 0.7 0.2-1.0 mg/dL Aspartate Amino Transferase 40 15-37 U/L Alanine Aminotransferase 31 14-59 U/L Alkaline Phosphatase 72 46-116 U/L Total Protein 7.1 6.4-8.2 g/dL Albumin Level 3.8 3.4-5.0 g/dL Globulin 3.3 Albumin Globulin Ratio 1.2 Performing Lab: see note ML - [facility] LB LIPASE Reviewed date:04/13/2024 01:06:56 PM Interpretation: Performing Lab: Notes/Report: [facility] , Lipase 61.0 16.0-77.0 U/L Performing Lab: see note - [facility] LB CBC AUTO DIFF Reviewed date:04/13/2024 01:06:56 PM Interpretation: Performing Lab: Notes/Report: [facility] , White Blood Count 7.4 4.0-11.0 10 3/uL Red Blood Count 4.54 4.20-5.40 10 6/uL Hemoglobin 13.7 12.0-16.0 g/dL Hematocrit 39.7 36.0-48.0 % Mean Corpuscular Volume 87.4 81.0-99.0 fL Mean Corpuscular Hemoglobin 30.2 26.7-34.0 pg Mean Corpuscular HGB Conc 34.5 29.9-35.2 g/dL Red Cell Distribution Width 12.6 11.0-15.0 % Platelet Count 169 150-450 10 3/uL Mean Platelet Volume 11.9 9.5-13.5 fL Neutrophils Percent Auto 80.0 43.0-75.0 % Lymphocytes Percent Auto 10.8 20.5-60.0 % Monocytes Percent Auto 6.5 1.7-12.0 % Eosinophils Percent Auto 2.2 0.9-7.0 % Basophils Percent Auto 0.1 0.2-2.0 % Immature Granulocytes Pct Auto 0.4 0.0-0.5 % Neutrophils Absolute Auto 5.9 1.4-6.5 10 3/uL Lymphocytes Absolute Auto 0.8 1.2-3.8 10 3/uL Monocytes Absolute Auto 0.5 0.3-0.8 10 3/uL Eosinophils Absolute Auto 0.2 0.0-0.7 10 3/uL Basophils Absolute Auto 0.0 0.0-0.1 10 3/uL Immature Granulocytes Abs Auto 0.03 0.00-0.03 10 3/uL Performing Lab: see note ML - [facility] right upper quadrant Reviewed date:03/25/2024 11:49:10 AM Interpretation: Performing Lab: Notes/Report: Source Facility: [facility]-[address] [place] [address] [place] [address] Ultrasound Report Signed Patient: SUSANNE PINZON MR#: [id number] : 1965 Acct:[id number] Age/Sex: 58 / F ADM Date: 03/22/24 Loc: MS 212-[address]: Jaja Parry M.D. Ordering Physician: Jaja Parry M.D. Date of Service: 03/23/24 Procedure(s): US right upper quadrant Accession Number(s): [id number] cc: Jaja Parry M.D. [address] [id number] Patient Name: SUSANNE PINZON MRN: [id number] date: 1965 Sex: F Assigned Patient Location: MS Current Patient Location: MS Accession/Order Number: [id number] Exam Date: 03/23/2024 08:30 Report Date: 03/23/2024 09:54 At the request of: JAJA PARRY Procedure: US right upper quadrant EXAM: US right upper quadrant HISTORY: Abdominal pain COMPARISON: 03/22/2024 TECHNIQUE: Grayscale, color and Doppler FINDINGS: The liver is normal in size and contour. Diffuse increase in hepatic echotexture suggesting hepatic steatosis. No focal mass. Hepatopedal flow in the main portal vein The visualized pancreas is normal The gallbladder is normal in size. The wall measures 1.2 mm. The common bile duct measures 4 mm. Negative sonographic Whitman sign. No cholelithiasis Right kidney is normal measuring 12.3 x 5.6 x 5.3 cm US/US right upper quadrant IMPRESSION: Echogenic liver suggesting hepatic steatosis. Electronically authenticated by: MONSE DAWSON Date: 03/23/2024 09:54 Dictated By: Monse Dawson M.D. Signed By: 03/23/24 0957 DD/ 0954 TD/TT: Train Electronic Technician: [place] [address] Ultrasound Report Signed Patient: MADAN PINZON MR#: [id number] : 1965 Acct:[id number] Age/Sex: 58 / F ADM Date: 03/22/24 Loc: MS 212-[address]: Christal Parry M.D. Ordering Physician: Jaja Parry M.D. Date of Service: 03/23/24 Procedure(s): US rig ht upper quadrant Accession Number(s): [id number] cc: Jaja Parry M.D. [address] [id number] Patient Name: SUSANNE PINZON MRN: [id number] date: 1965 Sex: F Assigned Patient Location: MS Current Patient Loca tion: MS Accession/Order Numb er: [id number] Exam Date: 03/23/2024 08:30 Report Date: 03/23/2024 09:54 At the request of: JAJA PARRY Procedure: US right upper quadrant EXAM: US right upper quadrant HISTORY: Abdominal pain COMPARISON: 03/22/2024 TECHNIQUE: Grayscale , color and Doppler FINDINGS: The liver is normal in size and contour. Diffuse increase in hepatic echotexture suggesti ng hepatic steatosis. No focal mass. Hepatopedal flow in the main portal vein The visualized pancr eas is normal The gallbladder is n ormal in size. The wall measures 1.2 mm. The common bile duct measures 4 mm. Negative sonographic Whitman sign. No cholelithiasis Right kidney is norm al measuring 12.3 x 5.6 x 5.3 cm U S/US right upper quadrant IMPRESSION: Echogenic liver suggesting hepatic steatosis. Electronically authenticated by: MONSE DAWSON Date: 03/23/2024 09:54 Dictated By: Saad Dawson M.D. Signed By: 03/23/2457 DD/ TD/TT: Train Electronic Technician: PROF ARJUN Marsh ([facility]) Reviewed date:03/23/2024 08:52:54 AM Interpretation: Performing Lab: Notes/Report: [facility] , Sodium 136 136-145 mmol/L Potassium 4.5 3.5-5.1 mmol/L Chloride 100 98-107 mmol/L Carbon Dioxide 25.8 21.0-32.0 mmol/L Anion Gap 14.7 Glucose 335 74-106 mg/dL Blood Urea Nitrogen 15.0 7.0-18.0 mg/dL Creatinine 0.92 0.55-1.02 mg/dL Estimated GFR ( Katty >60 >=60 mL/min/1.73m 2 Estimated GFR (Non- Tuyet >60 >=60 mL/min/1.73m 2 BUN Creatinine Ratio 16.3 Calcium 8.6 8.5-10.1 mg/dL Performing Lab: see note ML - [facility] LB CBC AUTO DIFF Reviewed date:03/23/2024 08:52:54 AM Interpretation: Performing Lab: Notes/Report: [facility] , White Blood Count 11.1 4.0-11.0 10 3/uL Red Blood Count 5.00 4.20-5.40 10 6/uL Hemoglobin 14.7 12.0-16.0 g/dL Hematocrit 43.0 36.0-48.0 % Mean Corpuscular Volume 86.0 81.0-99.0 fL Mean Corpuscular Hemoglobin 29.4 26.7-34.0 pg Mean Corpuscular HGB Conc 34.2 29.9-35.2 g/dL Red Cell Distribution Width 11.7 11.0-15.0 % Platelet Count 215 150-450 10 3/uL Mean Platelet Volume 11.2 9.5-13.5 fL Neutrophils Percent Auto 91.1 43.0-75.0 % Lymphocytes Percent Auto 6.6 20.5-60.0 % Monocytes Percent Auto 1.8 1.7-12.0 % Eosinophils Percent Auto 0.0 0.9-7.0 % Basophils Percent Auto 0.1 0.2-2.0 % Immature Granulocytes Pct Auto 0.4 0.0-0.5 % Neutrophils Absolute Auto 10.1 1.4-6.5 10 3/uL Lymphocytes Absolute Auto 0.7 1.2-3.8 10 3/uL Monocytes Absolute Auto 0.2 0.3-0.8 10 3/uL Eosinophils Absolute Auto 0.0 0.0-0.7 10 3/uL Basophils Absolute Auto 0.0 0.0-0.1 10 3/uL Immature Granulocytes Abs Auto 0.04 0.00-0.03 10 3/uL Performing Lab: see note ML - [facility] LB CT abdomen pelvis w con Reviewed date:03/22/2024 06:44:51 PM Interpretation: Performing Lab: Notes/Report: Source Facility: [facility]-[address] [place] [address] [place] [address] CT Scan Report Signed Patient: SUSANNE PINZON MR#: [id number] : 1965 Acct:[id number] Age/Sex: 58 / F ADM Date: 03/22/24 Loc: ER Attending Dr: Ordering Physician: Roro Portillo D.O. Date of Service: 03/22/24 Procedure(s): CT abdomen pelvis w con Accession Number(s): [id number] cc: Jaja Parry M.D. The [address] [address] Patient Name: SUSANNE PINZON MRN: [facility]:[id number] date: 1965 Sex: F Assigned Patient Location: ER Current Patient Location: ER Accession/Order Number: [id number] Exam Date: 03/22/2024 15:35 Report Date: 03/22/2024 16:10 At the request of: RORO PORTILLO Procedure: CT abdomen pelvis w con EXAMINATION: CT abdomen pelvis w con HISTORY: abd pain COMPARISON: No relevant comparison available. TECHNIQUE: CT images were created with IV contrast. Axial, Coronal, and Sagittal images. Dose reduction techniques were achieved by using automated exposure control and/or adjustment of mA and/or kV according to patient size and/or use of iterative reconstruction technique. FINDINGS: LUNG BASES: No visible pulmonary or pleural disease. LIVER: Diffuse hypoattenuation consistent with hepatic steatosis BILIARY: No visible dilatation or calcification. PANCREAS: No lesion, fluid collection, ductal dilatation, or atrophy. SPLEEN: No enlargement or focal lesion. ADRENALS: No mass or enlargement. KIDNEYS: No mass, obstruction, or calcification. BOWEL/MESENTERY: No visible mass, obstruction, or bowel wall thickening. AORTA/VASCULAR: No aortic aneurysm. Mild calcific atherosclerosis RETROPERITONEUM: No mass or adenopathy. LYMPH NODES: No adenopathy. URINARY BLADDER: No visible focal wall thickening, lesion, or calculus. PELVIC ORGANS: Hysterectomy ABDOMINAL WALL: No mass or hernia. BONES: No bony lesion or fracture. OTHER: Negative. CT/CT abdomen pelvis w con IMPRESSION: No acute intraperitoneal abnormality. Electronically authenticated by: MONSE DAWSON Date: 03/22/2024 16:10 Dictated By: Monse Dawson M.D. Signed By: 03/22/246 DD/ 09 TD/TT: Train Electronic Technician: [address] [address] [address] Scan Report Signed Patient: MADAN PINZON MR#: [id number] : 1965 Acct:[id number] Age/Sex: 58 / F ADM Date: 03/22/24 Loc: ER Attending Dr: Ordering Physician: Roro Portillo D.O. Date of Service: 03/22/24 Procedure(s): CT abd omen pelvis w con Accession Number(s): [id number] cc: Jaja Parry M.D. [address] [address] Patient Name: SUSANNE PINZON MRN: [id number]:[id number] date: 1965 Sex: F Assigned Patient Location: ER Current Patient Loca tion: ER Accession/Order Numb er: [id number] Exam Date: 03/22/2024 15:35 Report Date: 03/22/2024 16:10 At the request of: RORO PORTILLO Procedure: CT abdome n pelvis w con EXAMINATION: CT abdo men pelvis w con HISTORY: abd pain COMPARISON: No relev ant comparison available. TECHNIQUE: CT images were created with IV contrast. Axial, Coronal, and Sagittal images. Dos e reduction techniques were achieved by using automated exposure control and /or adjustment of mA and/or kV according to patient size and/or use of iterat brandan reconstruction technique. FINDINGS: LUNG BASES: No visib le pulmonary or pleural disease. LIVER: Diffuse hypoattenuation consistent with hepatic steatosis BILIARY: No visible dilatation or calcification. PANCREAS: No lesion, fluid collection, ductal dilatation, or atrophy. SPLEEN: No enlargeme nt or focal lesion. ADRENALS: No mass or enlargement. KIDNEYS: No mass, obstruction, or calcification. BOWEL/MESENTERY: No visible mass, obstruction, or bowel wall thickening. AORTA/VASCULAR: No a ortic aneurysm. Mild calcific atherosclerosis RETROPERITONEUM: No mass or adenopathy. LYMPH NODES: No adenopathy. URINARY BLADDER: No visible focal wall thickening, lesion, or calculus. PELVIC ORGANS: Hysterectomy ABDOMINAL WALL: No m ass or hernia. BONES: No bony lesio n or fracture. OTHER: Negative. C T/CT abdomen pelvis w con IMPRESSION: No acute intraperito jovany abnormality. Electronically authenticated by: MONSE DAWSON Date: 03/22/2024 16:10 Dictated By: Saad Dawson M.D. Signed By: 03/22/241612 DD/ 09 TD/TT: Train Electronic Technician: ECG 12 lead Reviewed date:03/23/2024 08:52:54 AM Interpretation: Performing Lab: Notes/Report: Source Facility: [place] [address] [place] [address] Electrocardiograph Report Signed Patient: SUSANNE PINZON MR#: [id number] : 1965 Acct:[id number] Age/Sex: 58 / F ADM Date: 03/22/24 Loc: [place] 212-[address]: Jaja Parry M.D. Ordering Physician: Roro Portillo D.O. 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 Signed By: 03/23/24626 DD/ 152 TD/TT: Train Electronic Technician: [place] [address] Electrocardiograph Report Signed Patient: MADAN PINZON MR#: [id number] : 1965 Acct:[id number] Age/Sex: 58 / F ADM Date: 03/22/24 Loc: [place] 212-[address]: Christal Parry M.D. Ordering Physician: Roro Portillo D.O. 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 Signed By: 03/23/24 0627 DD/ 1529 TD/TT: Train Electronic Technician: SARS-CoV-2 Ag* Reviewed date:03/22/2024 06:44:51 PM Interpretation: Performing Lab: Notes/Report: [facility] , SARS-CoV-2 Ag NEGATIVE NEGATIVE This test has not been FDA cleared or approved, but has been authorized by the FDA under an Emergency Use Authorization (EUA) for use by authorized laboratories certified under CLIA that meet the requirements to perform moderate or high complexity testing. This test has been authorized only for the detection of proteins from SARS-CoV-2, not for any other viruses or pathogens. The emergency use of this test is authorized for the duration of the declaration that circumstances exist justifying the authorization of emergency use of in vitro diagnostic tests for detection and/or diagnosis of Covid-19 under section 564(b)(1) of the Act, 21 U.S.C. 360bbb-3(b)(1), unless the declaration is terminated or authorization is revoked sooner. Performing Lab: see note ML - [facility] LB Troponin I High Sensitivity Reviewed date:03/22/2024 06:44:51 PM Interpretation: Performing Lab: Notes/Report: [facility] , Troponin I High Sensitivity 4.9 4.0-51.3 pg/mL CUT-OFF POINTS HAVE BEEN ESTABLISHED BASED ON THE FOURTH UNIVERSAL DEFINITION OF MYOCARDIAL INFARCTION. THE UPPER REFERENCE LIMIT (URL) OF TROPONIN, DEFINED THE 99TH PERCENTILE OF cTnI DISTRIBUTION IN A REFERENCE POPULATION, HAS BEEN CONFIRMED THE DECISION THRESHOLD FOR PR DIAGNOSIS. 99TH PERCENTILE = 51.4 PG/ML NOTE: HIGH-SENSITIVITY TROPONIN ASSAY IS NOT INTENDED TO BE USED IN ISOLATION BUT SHOULD BE INTERPRETED IN CONJUNCTION WITH OTHER DIAGNOSTIC AND CLINICAL INFORMATION. Performing Lab: see note ML - [facility] LB PROF 14(COMP METB) Reviewed date:03/22/2024 06:44:51 PM Interpretation: Performing Lab: Notes/Report: [facility] , Sodium 138 136-145 mmol/L Potassium 4.0 3.5-5.1 mmol/L Chloride 100 98-107 mmol/L Carbon Dioxide 24.9 21.0-32.0 mmol/L Anion Gap 17.1 Glucose 325 74-106 mg/dL Blood Urea Nitrogen 20.0 7.0-18.0 mg/dL Creatinine 1.00 0.55-1.02 mg/dL Estimated GFR ( Katty >60 >=60 mL/min/1.73m 2 Estimated GFR (Non- Tuyet 57 >=60 mL/min/1.73m 2 BUN Creatinine Ratio 20.0 Calcium 8.8 8.5-10.1 mg/dL Bilirubin Total 0.7 0.2-1.0 mg/dL Aspartate Amino Transferase 36 15-37 U/L Alanine Aminotransferase 46 14-59 U/L Alkaline Phosphatase 81 46-116 U/L Total Protein 7.4 6.4-8.2 g/dL Albumin Level 3.8 3.4-5.0 g/dL Globulin 3.6 Albumin Globulin Ratio 1.1 Performing Lab: see note ML - [facility] LB LIPASE Reviewed date:03/22/2024 06:44:51 PM Interpretation: Performing Lab: Notes/Report: [facility] , Lipase 46.0 16.0-77.0 U/L Performing Lab: see note ML - [facility] LB LACTATE or LACTIC ACID Reviewed date:03/23/2024 08:52:54 AM Interpretation: Performing Lab: Notes/Report: [facility] , Lactate/Lactic Acid 2.6 0.4-2.0 mmol/L RESULTS CALLED TO Justina Hunter RN @BY [place] at 0023 Performing Lab: see note ML - [facility] LB INFLUENZA A AND B AG Reviewed date:03/22/2024 06:44:51 PM Interpretation: Performing Lab: Notes/Report: [facility] , Influenza Virus A Antigen Negative Negative for Flu A protein antigen. Infection due to Flu A cannot be ruled out. Flu A antigen in the sample may be below the detection limit of the test. Influenza Virus B Antigen Negative Negative for Flu B protein antigen. Infection due to Flu B cannot be ruled out. Flu B antigen in the sample may be below the detection limit of the test. Performing Lab: see note ML - [facility] LB CBC AUTO DIFF Reviewed date:03/22/2024 06:44:51 PM Interpretation: Performing Lab: Notes/Report: [facility] , White Blood Count 11.3 4.0-11.0 10 3/uL Red Blood Count 5.70 4.20-5.40 10 6/uL Hemoglobin 17.0 12.0-16.0 g/dL Hematocrit 49.5 36.0-48.0 % Mean Corpuscular Volume 86.8 81.0-99.0 fL Mean Corpuscular Hemoglobin 29.8 26.7-34.0 pg Mean Corpuscular HGB Conc 34.3 29.9-35.2 g/dL Red Cell Distribution Width 12.0 11.0-15.0 % Platelet Count 262 150-450 10 3/uL Mean Platelet Volume 10.7 9.5-13.5 fL Neutrophils Percent Auto 69.1 43.0-75.0 % Lymphocytes Percent Auto 18.7 20.5-60.0 % Monocytes Percent Auto 10.7 1.7-12.0 % Eosinophils Percent Auto 0.9 0.9-7.0 % Basophils Percent Auto 0.2 0.2-2.0 % Immature Granulocytes Pct Auto 0.4 0.0-0.5 % Neutrophils Absolute Auto 7.8 1.4-6.5 10 3/uL Lymphocytes Absolute Auto 2.1 1.2-3.8 10 3/uL Monocytes Absolute Auto 1.2 0.3-0.8 10 3/uL Eosinophils Absolute Auto 0.1 0.0-0.7 10 3/uL Basophils Absolute Auto 0.0 0.0-0.1 10 3/uL Immature Granulocytes Abs Auto 0.05 0.00-0.03 10 3/uL Performing Lab: see note - [facility] LB AMYLASE Reviewed date:03/22/2024 06:44:50 PM Interpretation: Performing Lab: Notes/Report: [facility] , Amylase 26 25-115 U/L Performing Lab: see note - [facility] LB XR chest 1V Reviewed date:03/21/2024 05:16:30 PM Interpretation: Performing Lab: Notes/Report: Source Facility: [place] [address] [place] [address] XRay Report Signed Patient: SUSANNE PINZON MR#: [id number] : 1965 Acct:[id number] Age/Sex: 58 / F ADM Date: 03/21/24 Loc: ER Attending Dr: Ordering Physician: Jenna Frost Date of Service: 03/21/24 Procedure(s): XR chest 1V Accession Number(s): [id number] cc: Jaja Parry M.D.; Jenna Frost [place] [address] Patient Name: SUSANNE PINZON MRN: [facility]:[id number] date: 1965 Sex: F Assigned Patient Location: ER Current Patient Location: ER Accession/Order Number: [id number] Exam Date: 03/21/2024 14:12 Report Date: 03/21/2024 14:33 At the request of: JENNA FROST Procedure: XR chest 1V EXAMINATION: XR chest 1V HISTORY: Chest pain COMPARISON: XR chest 03/17/2024 FINDINGS: LUNGS: No significant pulmonary parenchymal abnormalities. VASCULATURE: No increased pulmonary vasculature. PLEURA: No pneumothorax, effusion, or pleural thickening. CARDIAC: No cardiomegaly or cardiac silhouette abnormality. MEDIASTINUM: No visible mass or adenopathy. BONES: No fracture or visible bone lesion. OTHER: Negative. XR/XR chest 1V IMPRESSION: 1. No acute cardiopulmonary process. Electronically authenticated by: KOSTA HARRISON Date: 03/21/2024 14:33 Dictated By: Kosta Harrison M.D. Signed By: 03/21/24 143 DD/ 32 TD/TT: Train Electronic Technician: [place] [address] XRay Report Signed Patient: MADAN PINZON MR#: [id number] : 1965 Acct:[id number] Age/Sex: 58 / F ADM Date: 03/21/24 Loc: ER Attending Dr: Ordering Physician: Jenna Frost Date of Service: 03/21/24 Procedure(s): XR chest 1V Accession Number(s): [id number] cc: Jaja Parry M.D. ; Jenna Frost [place] [address] Patient Name: SUSANNE PINZON MRN: [id number]:[id number] date: 1965 Sex: F Assigned Patient Location: ER Current Patient Loca tion: ER Accession/Order Numb er: [id number] Exam Date: 03/21/2024 14:12 Report Date: 03/21/2024 14:33 At the request of: JENNA FROST Procedure: XR chest 1V EXAMINATION: XR chest 1V HISTORY: Chest pain COMPARISON: XR chest 03/17/2024 FINDINGS: LUNGS: No significan t pulmonary parenchymal abnormalities. VASCULATURE: No incr eased pulmonary vasculature. PLEURA: No pneumotho rax, effusion, or pleural thickening. CARDIAC: No cardiome andreina or cardiac silhouette abnormality. MEDIASTINUM: No visi ble mass or adenopathy. BONES: No fracture o r visible bone lesion. OTHER: Negative. X R/XR chest 1V IMPRESSION: 1. No acute cardiopulmonary process. Electronically authenticated by: KOSTA HARRISON Date: 03/21/2024 14:33 Dictated By: Kosta Harrison M.D. Signed By: 03/21/24 1436 DD/ 1433 TD/TT: Train Electronic Technician: ECG 12 lead Reviewed date:03/23/2024 08:52:54 AM Interpretation: Performing Lab: Notes/Report: Source Facility: [place] [address] [place] [address] Electrocardiograph Report Signed Patient: SUSANNE PINZON MR#: [id number] : 1965 Acct:[id number] Age/Sex: 58 / F ADM Date: 03/21/24 Loc: ER Attending Dr: Ordering Physician: Jenna Frost Date of Service: 03/21/24 Procedure(s): ECG 12 lead Accession Number(s): [id number] cc: [facility] Test Date: 2024-03-21 Pat Name: SUSANNE PINZON Department: Room: - Gender: 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 Signed By: 03/23/24 0626 DD/ 1357 TD/TT: Train Electronic Technician: SARS-CoV-2 Ag* Reviewed date:03/21/2024 05:16:30 PM Interpretation: Performing Lab: Notes/Report: [facility] , SARS-CoV-2 Ag NEGATIVE NEGATIVE This test has not been FDA cleared or approved, but has been authorized by the FDA under an Emergency Use Authorization (EUA) for use by authorized laboratories certified under CLIA that meet the requirements to perform moderate or high complexity testing. This test has been authorized only for the detection of proteins from SARS-CoV-2, not for any other viruses or pathogens. The emergency use of this test is authorized for the duration of the declaration that circumstances exist justifying the authorization of emergency use of in vitro diagnostic tests for detection and/or diagnosis of Covid-19 under section 564(b)(1) of the Act, 21 U.S.C. 360bbb-3(b)(1), unless the declaration is terminated or authorization is revoked sooner. Performing Lab: see note ML - [facility] LB Venous Blood Gas Reviewed date:03/21/2024 05:16:30 PM Interpretation: Performing Lab: Notes/Report: [facility] , pH VBG 7.427 7.330-7.430 PCO2 VBG 33.7 40.0-52.0 mmHg Performing Lab: see note ML - [facility] LB Erythrocyte Sedimentation Ra te Reviewed date:03/21/2024 05:16:30 PM Interpretation: Performing Lab: Notes/Report: [facility] , Erythrocyte Sedimentation Rate 14 <=30 mm/hr Performing Lab: see note ML - [facility] LB LACTATE or LACTIC ACID Reviewed date:03/21/2024 05:16:30 PM Interpretation: Performing Lab: Notes/Report: [facility] , Lactate/Lactic Acid 2.6 0.4-2.0 mmol/L RESULT S CALLED TO JENNA SERRANO AT 1458 Performing Lab: see note ML - [facility] LB INFLUENZA A AND B AG Reviewed date:03/21/2024 05:16:30 PM Interpretation: Performing Lab: Notes/Report: [facility] , Influenza Virus A Antigen Negative Negative for Flu A protein antigen. Infection due to Flu A cannot be ruled out. Flu A antigen in the sample may be below the detection limit of the test. Influenza Virus B Antigen Negative Negative for Flu B protein antigen. Infection due to Flu B cannot be ruled out. Flu B antigen in the sample may be below the detection limit of the test. Performing Lab: see note ML - [facility] LB Troponin I High Sensitivity Reviewed date:03/18/2024 04:31:56 PM Interpretation: Performing Lab: Notes/Report: [facility] , Troponin I High Sensitivity 5.0 4.0-51.3 pg/mL CUT-OFF POINTS HAVE BEEN ESTABLISHED BASED ON THE FOURTH UNIVERSAL DEFINITION OF MYOCARDIAL INFARCTION. THE UPPER REFERENCE LIMIT (URL) OF TROPONIN, DEFINED THE 99TH PERCENTILE OF cTnI DISTRIBUTION IN A REFERENCE POPULATION, HAS BEEN CONFIRMED THE DECISION THRESHOLD FOR PR DIAGNOSIS. 99TH PERCENTILE = 51.4 PG/ML NOTE: HIGH-SENSITIVITY TROPONIN ASSAY IS NOT INTENDED TO BE USED IN ISOLATION BUT SHOULD BE INTERPRETED IN CONJUNCTION WITH OTHER DIAGNOSTIC AND CLINICAL INFORMATION. Performing Lab: see note ML - [facility] LB CT angio chest Reviewed date:03/18/2024 04:31:56 PM Interpretation: Performing Lab: Notes/Report: Source Facility: [facility]-[address] [place] [address] [place] [address] CT Scan Report Signed Patient: SUSANNE PINZON MR#: [id number] : 1965 Acct:[id number] Age/Sex: 58 / F ADM Date: 03/17/24 Loc: ER Attending Dr: Ordering Physician: Vielka Curran Date of Service: 03/17/24 Procedure(s): CT angio chest Accession Number(s): [id number] cc: Jaja Parry M.D. [place] [address] Patient Name: SUSANNE PINZON MRN: [facility]:[id number] date: 1965 Sex: F Assigned Patient Location: ER Current Patient Location: ED.MAIN Accession/Order Number: [id number] Exam Date: 03/17/2024 17:12 Report Date: 03/17/2024 19:14 At the request of: VIELKA CURRAN Procedure: CT angio chest EXAM: CT angio chest HISTORY: chest pain and HTN emergency aortic pathology ? COMPARISON: 10/06/2011 TECHNIQUE: CTA of the chest with intravenous contrast. Sagittal and coronal reconstructions and 3-D image processing were performed. Dose reduction techniques were achieved by using automated exposure control and/or adjustment of mA and/or kV according to patient size and/or use of iterative reconstruction technique. FINDINGS: The study is technically adequate for the diagnosis of pulmonary embolism, with good contrast bolus to the pulmonary arteries. TUBES AND IMPLANTS: None. CHEST WALL AND LOWER NECK: Unremarkable. BONES: No suspicious lesions. UPPER ABDOMEN: No acute finding MEDIASTINUM AND MUNA: Small hiatal hernia. AORTA: No aneurysm or dissection. Branch vessels are widely patent. PULMONARY ARTERIES: No embolism HEART: Mild cardiomegaly CORONARY ARTERIES: Mild coronary artery calcifications. LUNG AND AIRWAYS: A few less than 6 millimeter nodules are seen within the right lung. PLEURA: Unremarkable. CT/CT angio chest IMPRESSION: 1. No evidence for pulmonary embolism or an acute aortic syndrome. No aortic aneurysm. 2. A few less than 6 millimeter nodules are seen in the right lung, per Fleischner criteria optional twelve-month CT follow-up as clinically warranted. 3. Small hiatal hernia. Electronically authenticated by: JADE MENCHACA Date: 03/17/2024 19:14 Dictated By: Jade Menchaca M.D. Signed By: 03/17/241916 DD/ 13 TD/TT: Train Electronic Technician: The [address] [address] [address] Scan Report Signed Patient: MADAN PINZON MR#: [id number] : 1965 Acct:[id number] Age/Sex: 58 / F ADM Date: 03/17/24 Loc: ER Attending Dr: Ordering Physician: Vielka Curran Date of Service: 03/17/24 Procedure(s): CT ang io chest Accession Number(s): [id number] cc: Jaja Parry M.D. [address] [address] Patient Name: SUSANNE PINZON MRN: [id number] date: 1965 Sex: F Assigned Patient Location: ER Current Patient Loca tion: ED.MAIN Accession/Order Numb er: [id number] Exam Date: 03/17/2024 17:12 Report Date: 03/17/2024 19:14 At the request of: VIELKA CURRAN Procedure: CT angio chest EXAM: CT angio chest HISTORY: chest pain and HTN emergency aortic pathology ? COMPARISON: 10/06/2011 TECHNIQUE: CTA of th e chest with intravenous contrast. Sagittal and coronal reconstructions and 3-D image processing were performed. Dose reduction techniques were achi eved by using automated exposure control and/or adjustment of mA and/or kV acco rding to patient size and/or use of iterative reconstruction technique. FINDINGS: The study is technic ally adequate for the diagnosis of pulmonary embolism, with good contrast bolus to the pulmonary arteries. TUBES AND IMPLANTS: None. CHEST WALL AND LOWER NECK: Unremarkable. BONES: No suspicious lesions. UPPER ABDOMEN: No ac teller finding MEDIASTINUM AND MUNA : Small hiatal hernia. AORTA: No aneurysm o r dissection. Branch vessels are widely patent. PULMONARY ARTERIES: No embolism HEART: Mild cardiomegaly CORONARY ARTERIES: M ild coronary artery calcifications. LUNG AND AIRWAYS: A few less than 6 millimeter nodules are seen within the right lung. PLEURA: Unremarkable. C T/CT angio chest IMPRESSION: 1. No evidence for pulmonary embolism or an acute aortic syndrome. No aortic aneurysm. 2. A few less than 6 millimeter nodules are seen in the right lung, per Fleischner criteria optional twelve-month CT follow-up as clinically warranted. 3. Small hiatal hernia. Electronically authenticated by: JADE MENCHACA Date: 03/17/2024 19:14 Dictated By: Jade Menchaca M.D. Signed By: 03/17/241916 DD/ 13 TD/TT: Train Electronic Technician: XR chest 1V Reviewed date:03/17/2024 05:05:33 PM Interpretation: Performing Lab: Notes/Report: Source Facility: [place] [address] XRay Report Signed Patient: SUSANNE PINZON MR#: [id number] : 1965 Acct:[id number] Age/Sex: 58 / F ADM Date: 03/17/24 Loc: ER Attending Dr: Ordering Physician: Vielka Curran Date of Service: 03/17/24 Procedure(s): XR chest 1V Accession Number(s): [id number] cc: Jaja Parry M.D.; Vielka Curran [place] [address] Patient Name: SUSANNE PINZON MRN: [id number] date: 1965 Sex: F Assigned Patient Location: ER Current Patient Location: ER Accession/Order Number: [id number] Exam Date: 03/17/2024 16:00 Report Date: 03/17/2024 16:56 At the request of: VIELKA CURRAN Procedure: XR chest 1V EXAM: XR chest 1V at 1558 hours HISTORY: chest pain COMPARISON: 10/06/2011 TECHNIQUE: AP upright portable chest x-ray FINDINGS: The heart is not enlarged and the vasculature is not distended. No acute infiltrate, effusion or pneumothorax is identified. The osseous structures are grossly intact. XR/XR chest 1V IMPRESSION: No acute infiltrate or evidence of cardiac decompensation. The overall appearance of the chest is essentially unchanged. Electronically authenticated by: NAMITA IBARRA Date: 03/17/2024 16:56 Dictated By: Namita Ibarra M.D. Signed By: 03/17/241657 DD/ 55 TD/TT: Train Electronic Technician: [place] [address] XRay Report Signed Patient: MADAN PINZON MR#: [id number] : 1965 Acct:[id number] Age/Sex: 58 / F ADM Date: 03/17/24 Loc: ER Attending Dr: Ordering Physician: Vielka Curran Date of Service: 03/17/24 Procedure(s): XR chest 1V Accession Number(s): [id number] cc: Jaja Parry M.D. ; Vielka Curran [place] [address] Patient Name: SUSANNE PINZON MRN: [id number] date: 1965 Sex: F Assigned Patient Location: ER Current Patient Loca tion: ER Accession/Order Numb er: [id number] Exam Date: 03/17/2024 16:00 Report Date: 03/17/2024 16:56 At the request of: VIELKA CURRAN Procedure: XR chest 1V EXAM: XR chest 1V at 1558 hours HISTORY: chest pain COMPARISON: 10/06/2011 TECHNIQUE: AP uprigh t portable chest x-ray FINDINGS: The heart is not enlarged and the vasculature is not distended. No acute infiltrate, effusion or pneumothorax is identified. The osseous structures are gross ly intact. X R/XR chest 1V IMPRESSION: No acute infiltrate or evidence of cardiac decompensation. The overall appearance of the est is essentially unchanged. Electronically authenticated by: NAMITA IBARRA Date: 03/17/2024 16:56 Dictated By: Antwon Ibarra M.D. Signed By: 03/17/241657 DD/ 55 TD/TT: Train Electronic Technician: ECG 12 lead Reviewed date:03/19/2024 09:03:34 PM Interpretation: Performing Lab: Notes/Report: Source Facility: [facility]-[address] [place] [address] [place] [address] Electrocardiograph Report Signed Patient: SUSANNE PINZON MR#: [id number] : 1965 Acct:[id number] Age/Sex: 58 / F ADM Date: 03/17/24 Loc: ER Attending Dr: Ordering Physician: Vielka Curran Date of Service: 03/17/24 Procedure(s): ECG 12 lead Accession Number(s): [id number] cc: [facility] Test Date: 2024-03-17 Pat Name: SUSANNE PINZON Department: Room: - 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 Signed By: 03/19/24 1334 DD/ 1543 TD/TT: Train Electronic Technician: Troponin I High Sensitivity Reviewed date:03/17/2024 04:42:02 PM Interpretation: Performing Lab: Notes/Report: [facility] , Troponin I High Sensitivity <4.0 4.0-51.3 pg/mL CUT-OFF POINTS HAVE BEEN ESTABLISHED BASED ON THE FOURTH UNIVERSAL DEFINITION OF MYOCARDIAL INFARCTION. THE UPPER REFERENCE LIMIT (URL) OF TROPONIN, DEFINED THE 99TH PERCENTILE OF cTnI DISTRIBUTION IN A REFERENCE POPULATION, HAS BEEN CONFIRMED THE DECISION THRESHOLD FOR PR DIAGNOSIS. 99TH PERCENTILE = 51.4 PG/ML NOTE: HIGH-SENSITIVITY TROPONIN ASSAY IS NOT INTENDED TO BE USED IN ISOLATION BUT SHOULD BE INTERPRETED IN CONJUNCTION WITH OTHER DIAGNOSTIC AND CLINICAL INFORMATION. Performing Lab: see note ML - [facility] LB Prothrombin Time INR Reviewed date:03/17/2024 04:42:02 PM Interpretation: Performing Lab: Notes/Report: [facility] , Prothrombin Time 10.6 9.0-11.6 sec INR 1.00 DESIRED INR: 2.0-3.0 CONDITIONS NOT LISTED BELOW 2.5-3.5 FOR PROSTHETIC HEART VALVE REPLACEMENT 2.5-3.5 RECURRENT THROMBOSIS Performing Lab: see note - [facility] LB PROF 14(COMP METB) Reviewed date:03/17/2024 04:42:02 PM Interpretation: Performing Lab: Notes/Report: [facility] , Sodium 134 136-145 mmol/L Potassium 4.2 3.5-5.1 mmol/L Chloride 97 98-107 mmol/L Carbon Dioxide 25.2 21.0-32.0 mmol/L Anion Gap 16.0 Glucose 482 74-106 mg/dL Blood Urea Nitrogen 16.0 7.0-18.0 mg/dL Creatinine 1.09 0.55-1.02 mg/dL Estimated GFR ( Katty >60 >=60 mL/min/1.73m 2 Estimated GFR (Non- Tuyet 51 >=60 mL/min/1.73m 2 BUN Creatinine Ratio 14.7 Calcium 9.1 8.5-10.1 mg/dL Bilirubin Total 0.4 0.2-1.0 mg/dL Aspartate Amino Transferase 22 15-37 U/L Alanine Aminotransferase 36 14-59 U/L Alkaline Phosphatase 79 46-116 U/L Total Protein 7.4 6.4-8.2 g/dL Albumin Level 3.9 3.4-5.0 g/dL Globulin 3.5 Albumin Globulin Ratio 1.1 Performing Lab: see note ML - [facility] LB CBC AUTO DIFF Reviewed date:03/17/2024 04:42:02 PM Interpretation: Performing Lab: Notes/Report: [facility] , White Blood Count 8.8 4.0-11.0 10 3/uL Red Blood Count 4.92 4.20-5.40 10 6/uL Hemoglobin 14.5 12.0-16.0 g/dL Hematocrit 43.0 36.0-48.0 % Mean Corpuscular Volume 87.4 81.0-99.0 fL Mean Corpuscular Hemoglobin 29.5 26.7-34.0 pg Mean Corpuscular HGB Conc 33.7 29.9-35.2 g/dL Red Cell Distribution Width 11.9 11.0-15.0 % Platelet Count 196 150-450 10 3/uL Mean Platelet Volume 11.3 9.5-13.5 fL Neutrophils Percent Auto 72.7 43.0-75.0 % Lymphocytes Percent Auto 16.5 20.5-60.0 % Monocytes Percent Auto 8.6 1.7-12.0 % Eosinophils Percent Auto 1.5 0.9-7.0 % Basophils Percent Auto 0.2 0.2-2.0 % Immature Granulocytes Pct Auto 0.5 0.0-0.5 % Neutrophils Absolute Auto 6.4 1.4-6.5 10 3/uL Lymphocytes Absolute Auto 1.5 1.2-3.8 10 3/uL Monocytes Absolute Auto 0.8 0.3-0.8 10 3/uL Eosinophils Absolute Auto 0.1 0.0-0.7 10 3/uL Basophils Absolute Auto 0.0 0.0-0.1 10 3/uL Immature Granulocytes Abs Auto 0.04 0.00-0.03 10 3/uL Performing Lab: see note ML - [facility] LB BNP Reviewed date:03/17/2024 04:42:02 PM Interpretation: Performing Lab: Notes/Report: [facility] , NT Pro B Type Natriuretic Pept 18.0 <=900.0 pg/mL Performing Lab: see note - [facility] TSH Reviewed date:11/29/2023 06:13:59 PM Interpretation: Performing Lab: Notes/Report: [facility] , Thyroid Stimulating Hormone 2.436 0.358-3.740 uIU/mL Performing Lab: see note - [facility] FREE T4 Reviewed date:11/29/2023 06:13:59 PM Interpretation: Performing Lab: Notes/Report: [facility] , Free T4 1.08 0.76-1.46 ng/dL Performing Lab: see note [facility] US venous doppler LE BI Reviewed date:10/23/2023 08:57:55 PM Interpretation: Performing Lab: Notes/Report: Source Facility: [place] [address] Ultrasound Report Signed Patient: SUSANNE PINZON MR#: [id number] : 1965 Acct:[id number] Age/Sex: 58 / F ADM Date: 10/21/23 Loc: US Attending Dr: Jaja Parry M.D. Ordering Physician: Jaja Parry M.D. Date of Service: 10/21/23 Procedure(s): US venous doppler LE RT Accession Number(s): [id number] cc: Jaja Parry M.D. [place] [address] Patient Name: SUSANNE PINZON MRN: [id number] date: 1965 Sex: F Assigned Patient Location: US Current Patient Location: US Accession/Order Number: [id number] Exam Date: 10/21/2023 17:15 Report Date: 10/21/2023 19:42 At the request of: JAJA PARRY Procedure: US venous doppler LE RT EXAM: US venous doppler LE RT HISTORY: Localized Edema, R50.0 COMPARISON: None. TECHNIQUE: Multiple sonographic images of the deep veins of the right lower extremity were obtained, supplemented with Doppler. FINDINGS: The deep veins of the right lower extremity are fairly well-visualized the groin to the mid calf. No filling defect is identified to indicate a thrombus. There is normal compression augmentation to flow throughout. US/US venous doppler LE RT IMPRESSION: There is no direct or indirect evidence of deep vein thrombosis in the right lower extremity at this time. Electronically authenticated by: NAMITA IBARRA Date: 10/21/2023 19:42 Dictated By: Namita Ibarra M.D. Signed By: 10/21/231943 DD/ 41 TD/TT: Train Electronic Technician: [place] [address] Ultrasound Report Signed Patient: MADAN PINZON MR#: [id number] : 1965 Acct:[id number] Age/Sex: 58 / F ADM Date: 10/21/23 Loc: US Attending Dr: Christal Parry M.D. Ordering Physician: Jaja Parry M.D. Date of Service: 10/21/23 Procedure(s): US vj ous doppler LE RT Accession Number(s): [id number] cc: Jaja Parry M.D. [place] [address] Patient Name: SUSANNE PINZON MRN: [id number] date: 1965 Sex: F Assigned Patient Location: US Current Patient Loca tion: US Accession/Order Numb er: [id number] Exam Date: 10/21/2023 17:15 Report Date: 10/21/2023 19:42 At the request of: JAJA PARRY Procedure: US venous doppler LE RT EXAM: US venous dopp ler LE RT HISTORY: Localized E mihir, R50.0 COMPARISON: None. TECHNIQUE: Multiple sonographic images of the deep veins of the right lower extremity were obtai genaro, supplemented with Doppler. FINDINGS: The deep v eins of the right lower extremity are fairly well-visualized the groin to the mid calf. No filling defect is identified to indicate a thrombus. There is normal compression augmentation to flow throughout. U S/US venous doppler LE RT IMPRESSION: There is no direct o r indirect evidence of deep vein thrombosis in the right lower extremity at t his time. Electronically authenticated by: NAMITA IBARRA Date: 10/21/2023 19:42 Dictated By: Antwon Ibarra M.D. Signed By: 10/21/231943 DD/ 41 TD/TT: Train Electronic Technician: PROF Dela Cruz(COMP METB) Reviewed date:11/29/2023 06:13:59 PM Interpretation: Performing Lab: Notes/Report: [facility] , Sodium 142 136-145 mmol/L Potassium 4.2 3.5-5.1 mmol/L Chloride 105 98-107 mmol/L Carbon Dioxide 24.6 21.0-32.0 mmol/L Anion Gap 16.6 Glucose 151 74-106 mg/dL Blood Urea Nitrogen 21.0 7.0-18.0 mg/dL Creatinine 1.09 0.55-1.02 mg/dL Estimated GFR ( Katty >60 >=60 mL/min/1.73m 2 Estimated GFR (Non- Tuyet 51 >=60 mL/min/1.73m 2 BUN Creatinine Ratio 19.3 Calcium 8.7 8.5-10.1 mg/dL Bilirubin Total 0.6 0.2-1.0 mg/dL Aspartate Amino Transferase 27 15-37 U/L Alanine Aminotransferase 27 14-59 U/L Alkaline Phosphatase 56 46-116 U/L Total Protein 6.9 6.4-8.2 g/dL Albumin Level 3.6 3.4-5.0 g/dL Globulin 3.3 Albumin Globulin Ratio 1.1 Performing Lab: see note ML - [facility] LB LIPID PROFILE Reviewed date:11/29/2023 06:13:59 PM Interpretation: Performing Lab: Notes/Report: [facility] , Triglycerides 294 <=150 mg/dL Cholesterol 202 <=200 mg/dL HDL Cholesterol 38 40-60 mg/dL > or =60 mg/dl - LOW CARDIOVASCULAR RISK <40 mg/dl - HIGH CARDIOVASCULAR RISK LDL Cholesterol Calculated 106.0 <100 mg/dl OPTIMAL 100-129 mg/dl NEAR OR ABOVE OPTIMAL 130-159 mg/dl BORDERLINE HIGH 160-189 mg/dl HIGH >190 mg/dl VERY HIGH VLDL CHOLESTEROL 58.8 Chol HDL Ratio 5.3 3.3 - 4.4 LOW RISK 4.4 - 7.1 AVERAGE RISK 7.1 - 11.0 MODERATE RISK >11.0 HIGH RISK Performing Lab: see note - [facility] GLYCOHEMOGLOBIN A1C Reviewed date:11/29/2023 06:13:59 PM Interpretation: Performing Lab: Notes/Report: [facility] , Glycohemoglobin A1C 6.6 4.5-6.2 % ADA RECOMMENDED LIMIT 4.0 - 6.0 ADA THERAPEUTIC TARGET < 7.0 ACTION SUGGESTED > 7.0 Estimated Average Glucose 143 Performing Lab: see note - [facility] MM tomosynthesis screening B I Reviewed date:08/26/2024 04:31:10 PM Interpretation: Performing Lab: Notes/Report: Source Facility: [facility]-[address] [place] [address] Mammography Report Signed Patient: SUSANNE PINZON MR#: [id number] : 1965 Acct:[id number] Age/Sex: 58 / F ADM Date: 08/24/24 Loc: MAMMO Attending Dr: Jaja Parry M.D. Ordering Physician: Jaja Parry M.D. Results: Date of Service: 08/24/24 Follow Up: Procedure(s): MM tomosynthesis screening BI Accession Number(s): [id number] cc: Jaja Parry M.D. Patient Name: SUSANNE PINZON MR#: [id number] : 1965 Exam Date: 08/24/2024 Ordering Doctor: DR JAJA PARRY . RADIOLOGY REPORT PROCEDURE: MM TOMOSYNTHESIS SCREENING BI COMPARISON: MG MAMM SCREEN JULIA W CAD, 07/23/2019. MG MAMM SCREEN JULIA W CAD, 06/14/2018. MG MAMM SCREEN JULIA W CAD, 06/10/2017. MAMMO JULIA SCREEN, 02/13/2009. INDICATIONS: Screening Calculator Name NCI Breast Cancer Risk Assessment Tool 5 Year Breast Cancer Risk 1.00% Lifetime Breast Cancer Risk 5.30% Personal Breast Cancer No Personal Ovarian Cancer No Treatments None Family Cancers Mother with cervical cancer at age 71; Father with melanoma cancer at age 75; Cousin-paternal with melanoma cancer at age 70. LOCATION: [facility] BREAST COMPOSITION: There are scattered areas of fibroglandular density. FINDINGS: RIGHT BREAST: No significant suspicious finding. Benign-appearing calcifications are present. Benign-appearing lymph nodes are noted along chest wall. LEFT BREAST: No significant suspicious finding. Benign-appearing calcifications are present. Benign-appearing lymph nodes are noted along chest wall. DIAGNOSTIC CATEGORY 2--BENIGN FINDING: RECOMMENDATIONS: ROUTINE MAMMOGRAM AND CLINICAL EVALUATION IN 12 MONTHS. PLEASE NOTE: A NORMAL MAMMOGRAM DOES NOT EXCLUDE THE POSSIBILITY OF BREAST CANCER. A CLINICALLY SUSPICIOUS PALPABLE LUMP SHOULD BE BIOPSIED. Dictated by: Bernardo Camacho MD on 08/24/2024 at 10:39 Approved by: Bernardo Camacho MD on 08/24/2024 at 10:43 Dictated By: Bernardo Camacho M.D. Signed By: 08/24/24 1044 DD/ 1043 TD/TT: Train Electronic Technician: [place] [address] Mammography Report Signed Patient: MADAN PINZON MR#: [id number] : 1965 Acct:[id number] Age/Sex: 58 / F ADM Date: 08/24/24 Loc: MAMMO Attending Dr: Christal Parry M.D. Ordering Physician: Jaja Parry M.D. Results: Date of Service: 01/08 Follow Up: Procedure(s): MM tomosynthesis screening BI Accession Number(s): [id number] cc: Jaja Parry M.D. Patient Name: SUSANNE PINZON MR#: [id number] : 1965 Exam Date: 08/24/2024 Ordering Doctor: DR JAJA PARRY . RADIOLOGY REPORT PROCEDURE: MM TOMOSYNTHESIS SCREENING BI COMPARISON: MG MAMM SCREEN JULIA W CAD, 07/23/2019. MG MAMM SCREEN JULIA W CAD, 06/14/2018. MG M AMM SCREEN JULIA W CAD, 06/10/2017. MAMMO JULIA SCREEN, 02/13/2009. INDICATIONS: Screening Calculator Name NCI Breast Cancer Risk Assessment Tool 5 Year Breast Cancer Risk 1.00% Lifetime Breast Canc er Risk 5.30% Personal Breast Cancer No Personal Ovarian Can cer No Treatments None Family Cancers Mothe r with cervical cancer at age 71; Father with melanoma cancer at age 75; Cousin-paternal with melanoma cancer at age 70. LOCATION: [facility] BREAST COMPOSITION: There are scattered areas of fibroglandular density. FINDINGS: RIGHT BREAST: No significant suspicious finding. Benign-appearing calcifications are present. Benign-appearing lymph nodes are noted along chest wall. LEFT BREAST: No significant suspicious finding. Benign-appearing calcifications are present. Benign-appearing lymph nodes are noted along chest wall. DIAGNOSTIC CATEGORY 2--BENIGN FINDING: RECOMMENDATIONS: ROUTINE MAMMOGRAM AN D CLINICAL EVALUATION IN 12 MONTHS. PLEASE NOTE: A DUGLAS L MAMMOGRAM DOES NOT EXCLUDE THE POSSIBILITY OF BREAST CANCER. A CLINICALLY SUSPICIOUS PALPABLE LUMP SHOULD BE BIOPSIED. Dictated by: Bernardo Camacho MD on 08/24/2024 at 10:39 Approved by: Bernardo Camacho MD on 08/24/2024 at 10:43 Dictated By: Bernardo Camacho M.D. Signed By: 08/24/24 1044 DD/ 1043 TD/TT: Train Electronic Technician: VITAMIN D 25 [place] Reviewed date:06/13/2024 05:17:46 PM Interpretation: Performing Lab: Notes/Report: [facility] , Vitamin D 44.7 <20 ng/mL Vit D deficient 20-<30 ng/mL Vit D insufficient 30-100 ng/mL Vit D sufficient >100 ng/mL Potential Toxicity Performing Lab: see note ML - [facility] LB PROF 14(COMP METB) Reviewed date:06/13/2024 05:17:46 PM Interpretation: Performing Lab: Notes/Report: [facility] , Sodium 137 136-145 mmol/L Potassium 3.7 3.5-5.1 mmol/L Chloride 100 98-107 mmol/L Carbon Dioxide 21.8 21.0-32.0 mmol/L Anion Gap 18.9 Glucose 384 74-106 mg/dL Blood Urea Nitrogen 22.0 7.0-18.0 mg/dL Creatinine 1.22 0.55-1.02 mg/dL Estimated GFR ( Katty 54 >=60 mL/min/1.73m 2 Estimated GFR (Non- Tuyet 45 >=60 mL/min/1.73m 2 BUN Creatinine Ratio 18.0 Calcium 9.5 8.5-10.1 mg/dL Bilirubin Total 0.6 0.2-1.0 mg/dL Aspartate Amino Transferase 14 15-37 U/L Alanine Aminotransferase 24 14-59 U/L Alkaline Phosphatase 93 46-116 U/L Total Protein 7.3 6.4-8.2 g/dL Albumin Level 4.1 3.4-5.0 g/dL Globulin 3.2 Albumin Globulin Ratio 1.3 Performing Lab: see note - [facility] LIPID PROFILE Reviewed date:06/13/2024 05:17:46 PM Interpretation: Performing Lab: Notes/Report: [facility] , Triglycerides 309 <=150 mg/dL Cholesterol 217 <=200 mg/dL HDL Cholesterol 44 40-60 mg/dL > or =60 mg/dl - LOW CARDIOVASCULAR RISK <40 mg/dl - HIGH CARDIOVASCULAR RISK LDL Cholesterol Calculated 112.0 <100 mg/dl OPTIMAL 100-129 mg/dl NEAR OR ABOVE OPTIMAL 130-159 mg/dl BORDERLINE HIGH 160-189 mg/dl HIGH >190 mg/dl VERY HIGH VLDL CHOLESTEROL 61.8 Chol HDL Ratio 4.9 3.3 - 4.4 LOW RISK 4.4 - 7.1 AVERAGE RISK 7.1 - 11.0 MODERATE RISK >11.0 HIGH RISK Performing Lab: see note - [facility] NM leilani perf SPECT rest str Reviewed date:04/25/2024 06:39:09 PM Interpretation: Performing Lab: Notes/Report: Source Facility: [facility]-[address] [place] [address] Nuclear Medicine Report Signed Patient: SUSANNE PINZON MR#: [id number] : 1965 Acct:[id number] Age/Sex: 58 / F ADM Date: 04/20/24 Loc: CARD Attending Dr: Jaja Parry M.D. Ordering Physician: Jaja Parry M.D. Date of Service: 04/20/24 Procedure(s): NM leilani perf SPECT rest str Accession Number(s): [id number] cc: Jaja Parry M.D. Patient Name: SUSANNE PINZON MR#: [id number] : 1965 Exam Date: 04/20/2024 Ordering Doctor: DR Jaja Parry . RADIOLOGY REPORT PROCEDURE: NM LEILANI PERF SPECT REST STR COMPARISON: None. INDICATIONS: CHEST PAIN TECHNIQUE: Exam Description: Stress/Rest one day protocol gated SPECT Rest Imagin.0 mCi Tc-99m Cardiolite IV on 04/20/2024 Stress Imaging 29.4 mCi Tc-99m Cardiolite IV on 04/20/2024 Exercise Protocol: 0.4 mg Lexiscan given IV Heart Rate (bpm): Rest: 70 Max: 83 PMHR: 51 Blood Pressure: Rest: 128/78 Max: 132/76 Symptoms: Rest and peak stress ECG findings were pending and the exercise portion of the study was pending per attending physician [facility] . For more details please see separate cardiac stress test report. FINDINGS: QUALITY OF STUDY: Good PERFUSION DEFECT: LOCATION: Inferoapical SIZE: Small SEVERITY: Mild TYPE: Fixed. Likely diaphragm attenuation. WALL MOTION: Normal wall motion LV SIZE: 73 mL. TID / TCD: 1.0 LVEF: Calculated EF 74%. SUMMARY: Myocardial perfusion imaging study is normal CONCLUSION: 1. Myocardial perfusion imaging is normal with soft tissue attenuation 2. Global left ventricular systolic function is normal 3. No evidence of transient ischemic dilatation Dictated by: Ailin Murphy M.D. on 04/25/2024 at 12:20 Approved by: Ailin Murphy M.D. on 04/25/2024 at 12:23 Dictated By: Ailin Murphy M.D. Signed By: 04/25/24 1224 DD/ 1223 TD/TT: Train Electronic Technician: [place] [address] Nuclear Medicine Report Signed Patient: MADAN PINZON MR#: [id number] : 1965 Acct:[id number] Age/Sex: 58 / F ADM Date: 04/20/24 Loc: CARD Attending Dr: Christal Parry M.D. Ordering Physician: Jaja Parry M.D. Date of Service: 04/20/24 Procedure(s): NM leilani perf SPECT rest str Accession Number(s): [id number] cc: Jaja Parry M.D. Patient Name: SUSANNE PINZON MR#: [id number] : 1965 Exam Date: 04/20/2024 Ordering Doctor: DR Jaja Parry . RADIOLOGY REPORT PROCEDURE: NM LEILANI PE RF SPECT REST STR COMPARISON: None. INDICATIONS: CHEST PAIN TECHNIQUE: Exam Description: Stress/Rest one day protocol gated SPECT Rest Imagin.0 m Ci Tc-99m Cardiolite IV on 04/20/2024 Stress Imaging 29.4 mCi Tc-99m Cardiolite IV on 04/20/2024 Exercise Protocol: 0 .4 mg Lexiscan given IV Heart Rate (bpm): Re st: 70 Max: 83 PMHR: 51 Blood Pressure: Rest : 128/78 Max: 132/76 Symptoms: Rest and peak stress ECG findings were pending and the exercise portion of the study was pending pe r attending physician [facility] . For more details please see separate cardiac str ess test report. FINDINGS: QUALITY OF STUDY: Good PERFUSION DEFECT: LOCATION: Inferoapical SIZE: Small SEVERITY: Mild TYPE: Fixed. Likely diaphragm attenuation. WALL MOTION: Normal wall motion LV SIZE: 73 mL. TID / TCD: 1.0 LVEF: Calculated EF 74%. SUMMARY: Myocardial perfusion imaging study is normal CONCLUSION: 1. Myocardial perfus ion imaging is normal with soft tissue attenuation 2. Global left ventricular systolic function is normal 3. No evidence of transient ischemic dilatation Dictated by: Ailin Murphy M.D. on 04/25/2024 at 12:20 Approved by: Aiiln Murphy M.D. on 04/25/2024 at 12:23 Dictated By: Ailin Murphy M.D. Signed By: 04/25/24 1224 DD/ 1223 TD/TT: Train Electronic Technician: Reason For Referral No Information Medications Medication SIG (Take, Route, Frequency, Duration) Notes Start Date End Date Status Test Strips - Dx: 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 Once daily for 90 days 03/28/2024 Active Pen [place] 31G X 6 MM Use 5 needles kvng ly to inject Insulin DX E11.9 for 30 days Active Cymbalta 60 MG 1 capsule Orally Onc e a day for 30 days 07/11/2024 Active Lantus SoloStar 100 UNIT/ML Inject 60 un its Subcutaneous once daily for 50 days Active Acetaminophen-Codeine 300-30 MG 1 tablet as needed Orally every 6 hrs for 7 days 08/28/2024 Active Multivitamin Active Metoprolol Tartrate 50 MG 1 tablet with food Orally Twice a day for 30 days 03/19/2024 Active Diclofenac Sodium 3 % 1 application Exte rnally Twice a day 07/16/2024 Active Blood Glucose Monitor System w/Device use device Dx:E11.9 daily to monitor blood glucose level 03/28/2024 Active Cyclobenzaprine HCl 10 MG 1 tablet Orall y tid for 30 days 06/18/2024 Active Triamcinolone Acetonide 0.1 % External for 14 Days Active Tart Thapa Active Simvastatin 20 MG 1 tablet Orally Once a day for 90 days Active Protonix 40 MG 1 tablet Orally Once a day for 30 days 03/23/2024 Active Social History Tobacco Use: Social History Observation Description Date Details (start date - stop date) Former Smoker 02/14/1981 - 02/14/2010 Tobacco Use/Smoking Question Answer Notes Patient is a former smoker When did you start smoking? 02/14/1981 When did you stop smoking? 02/14/2010 How long has it been since y ou last smoked? > 10 years Additional Findings: Tobacco User Light cigarett e smoker ((1-9 cigs/day) Alcohol Screen (Audit-C) Question Answer Notes Did you have a drink containing alcohol in the p ast year? No Points 0 Interpretation Negative AUDIT-C (Standard) Question Answer Notes Did you have a drink containing alcohol in the p ast year? No Points 0 Interpretation Negative Problems Problem Type SNOMED Code ICD Code Onset Dates Problem Status W/U Status Risk Notes Problem 98428168 Obstructive slee p apnea (adult) (pediatric) (G47.33) Active confirmed Problem Fibromyalgia (384562023) Fibromyalgia (M79.7) Active confirmed Problem 733528502 Unspecified tear of unspecified meniscus, current injury, left knee, initial encounter (S83.207A) Active confirmed Problem Hyperlipidemia (55952902) Hyperlipidemia (E78.5) Active confirmed Problem Osteoarthritis (349366923) Osteoarthritis (M19.90) Active confirmed Problem Anxiety (84552217) Anxiety (F41.9) Active confi rmed Problem Hypertriglyceridemia (985995793) Hypertriglyceridemia (E78.1) Active confirmed Problem Type II diabetes mellitus well controlled (223271057) Diabetes type 2, controlled (E11.9) Active confirmed Problem Diarrhea (55405036) Diarrhea (R19.7) Active con firmed Problem Acute bronchitis (37874501) Acute bronchitis (J20.9) Active confirmed Problem Fatty liver (388061998) Fatty liver (K76.0) Active confirmed Problem Well adult (424455387) Well adult (Z00.00) Active confirmed Problem Leg pain (96119055) Leg pain (M79.606) Active c onfirmed Problem Dysphagia (25434068) Dysphagia (R13.10) Active confirmed Problem Essential hypertension (89287586) Hypertension, uncontrolled (I10) Active confirmed Problem Erythrocytosis (306641563) Erythrocytosis (D75.1) Active confirmed Problem Acute sinusitis (83729325) Acute sinus infection (J01.90) Active confirmed Problem Gastroenteritis (56368823) Gastroenteritis (K52.9) Active confirmed Problem Overweight (569236018) Over weight (E66.3) Active confirmed Problem Leukocytosis (146598313) Leukocytosis (D72.829) Active confirmed Problem Hypertensive retinopathy (5974023) Hypertensive retinopathy (H35.039) Active confirmed Problem Shaky (R25.1) Active confirmed Problem Essential hypertension (07411185) Essential Hypertension (I10) Active confirmed Problem Bruising (248311524) Bruising (T14.8XXA) Active confirmed Problem Osteoarthritis of knee (471051038) Knee osteoarthritis (M17.10) Active confirmed Problem Hyperglycemia due to diabetes mellitus (642254740) Hyperglycemia due to diabetes mellitus (E11.65) Active confirmed Vital Signs Heart Rate 77 /min 04/09/2024 Oximetry 99 % 04/09/2024 Blood pressure diastolic 70 mm Hg 07/16/2024 Height 66 in 07/16/2024 Blood pressure systolic 126 mm Hg 07/16/2024 Weight 225.4 lbs 07/16/2024 BMI 36.38 kg/m2 07/16/2024 Procedures Procedure Date Ordered Date Performed Result Body Sit e *CARDIO Stress Test - Lexiscan Nuclear 03/19/2024 N/A CARDIO Echocardiogram 03/27/2024 N/A Encounters Encounter Location Date Provider Diagnosis [facility] [address] [facility] [place] [address] 08/26/2024 Quincy Hoy [facility] [address] [facility] [place] [address] 07/11/2024 Quincy Hoy [facility] [address] [place] [address] 07/19/2024 Quincy Hoy Over weight E66.3 [facility] [address] [facility] [place] [address] 07/23/2024 Quincy Hoy Over weight E66.3 [facility] [address] [facility] [place] [address] 08/06/2024 Quincy Hoy Knee osteoarthritis M17.10 [facility] [address] [facility] [place] [address] 08/10/2024 Quincy Hoy Over weight E66.3 [facility] [address] [place] [address] 08/14/2024 Quincy Hoy [facility] [address] [facility] [place] [address] 06/04/2024 Quincy Hoy [facility] [address] [facility] [place] [address] 06/13/2024 Quincy Hoy Over weight E66.3 [facility] [address] [facility] [place] [address] 06/18/2024 Quincy Hoy [facility] [address] [facility] [place] [address] 06/22/2024 Quincy Hoy [facility] [address] [facility] [place] [address] 06/25/2024 Quincy Hoy Essential Hypertensi on I10 [facility] [address] [facility] [place] [address] 06/26/2024 Quincy Hoy [facility] [address] [facility] [place] [address] 04/09/2024 Quincy Hoy [facility] [address] [place] [address] 04/12/2024 Quincy Parry [facility] [address] [place] [address] 04/15/2024 Quincy Parry Essential Hypertensi on I10 [facility] [address] [place] [address] 04/22/2024 Quincy Sohan [facility] [address] [place] [address] 04/25/2024 Quincy Sohan [facility] [address] [place] [address] 04/30/2024 Quincy Sohan [facility] [address] [place] [address] 03/21/2024 Quincy Sohan [facility] [address] [place] [address] 03/23/2024 Quincy Parry [facility] [address] [place] [address] 03/25/2024 Quincy Parry Fatty liver K76.0 [facility] [address] [place] [address] 03/27/2024 Quincy Sohan [facility] [address] [place] [address] 03/28/2024 Quincy Parry [facility] [address] [place] [address] 03/28/2024 Quincy Parry [facility] [address] [place] [address] 12/08/2023 Quincy Parry Leg pain M79.606 [facility] [address] [place] [address] 12/23/2023 Quincy Parry [facility] [address] [place] [address] 12/26/2023 Quincy Parry [facility] [address] [place] [address] 01/17/2024 Quincy Parry [facility] [address] [facility] [place] [address] 03/20/2024 Quincy Parry [facility] [address] [facility] [place] [address] 03/21/2024 Quincy Parry [facility] [address] [facility] [place] [address] 10/21/2023 Quincy Gonzalezy Localized edema R60. 0 [facility] [address] [facility] [place] [address] 10/23/2023 Quincy Parry [facility] [address] [place] [address] 11/28/2023 Quincy Carlosy Diabetes type 2, controlled E11.9 ; Hyperlipidemia E78.5 ; Other fatigue R53.83 and Encounter for screening for malignant neoplasm of colon Z12.11 [facility] [address] [facility] [place] [address] 11/29/2023 Quincy Parry [facility] [address] [facility] [place] [address] 10/19/2023 Quincy Hoy Leg pain M79.606 [place] [address] [facility] [place] [address] 03/19/2024 Quincy Hoy Chest pain R07.9 [place] [address] [facility] [place] [address] 03/27/2024 Quincy Hoy Essential Hypertensi on I10 ; Diabetes type 2, controlled E11.9 and Dysphagia R13.10 [facility] [address] [facility] [place] [address] 04/09/2024 Quincy Hoy Obstructive sleep ap nabor (adult) (pediatric) G47.33 and Acute bronchitis J20.9 [facility] [address] [facility] [place] [address] 06/19/2024 Quincy Hoy Essential Hypertensi on I10 ; Hyperlipidemia E78.5 and Diabetes type 2, controlled E11.9 [facility] [address] [facility] [place] [address] 07/16/2024 Quincy Parry Well adult Z00.00 ; Obstructive sleep apnea (adult) (pediatric) G47.33 ; Essential Hypertension I10 ; Hyperlipidemia E78.5 ; Hyperglycemia due to diabetes mellitus E11.65 and Knee osteoarthritis M17.[address] [address] 03/22/2024 Quincy Parry Abdominal pain 789.[address] [address] 06/12/2024 Quincy Hoy Over weight E66.3 ; Essential Hypertension I10 ; Diabetes type 2, controlled E11.9 ; Obstructive sleep apnea (adult) (pediatric) G47.33 ; Myalgia M79.10 and Arthralgia M25.[address] [address] 06/26/2024 Quincy Parry Essential Hypertensi on I10 Assessments Encounter Date Diagnosis (ICD Code) Assessment Notes Treatment Notes Treatment Clinical Notes Section Notes 10/19/2023 Leg pain (ICD-10 - M79.606) 03/27/2024 Essential Hypertension (ICD-10 - I10) 03/27/2024 Diabetes type 2, controlled (ICD-10 - E11.9) 03/19/2024 Chest pain (ICD-10 - R07.9) 03/22/2024 Abdominal pain (ICD9-CM - 789.00) 04/09/2024 Obstructive sleep apnea (adult) (pediatric) (ICD-10 - G47.33) 04/09/2024 Acute bronchitis (ICD-10 - J20.9) 07/16/2024 Well adult (ICD-10 - Z00.00) 07/16/2024 Obstructive sleep apnea (adult) (pediatric) (ICD-10 - G47.33) 06/12/2024 Over weight (ICD-10 - E66.3) 06/12/2024 Essential Hypertension (ICD-10 - I10) 06/26/2024 Essential Hypertension (ICD-10 - I10) 10/21/2023 Localized edema (ICD-10 - R60.0) 11/28/2023 Diabetes type 2, controlled (ICD-10 - E11.9) 11/28/2023 Hyperlipidemia (ICD-10 - E78.5) 12/08/2023 Leg pain (ICD-10 - M79.606) 03/25/2024 Fatty liver (ICD-10 - K76.0) 04/15/2024 Essential Hypertension (ICD-10 - I10) 06/13/2024 Over weight (ICD-10 - E66.3) 06/25/2024 Essential Hypertension (ICD-10 - I10) 07/19/2024 Over weight (ICD-10 - E66.3) 07/23/2024 Over weight (ICD-10 - E66.3) 08/06/2024 Knee osteoarthritis (ICD-10 - M17.10) 08/10/2024 Over weight (ICD-10 - E66.3) 06/19/2024 Essential Hypertension (ICD-10 - I10) 06/19/2024 Hyperlipidemia (ICD-10 - E78.5) 06/19/2024 Diabetes type 2, controlled (ICD-10 - E11.9) 11/28/2023 Other fatigue (ICD-10 - R53.83) 06/12/2024 Diabetes type 2, controlled (ICD-10 - E11.9) 07/16/2024 Essential Hypertension (ICD-10 - I10) 03/27/2024 Dysphagia (ICD-10 - R13.10) dobule protonix - if not better needs BA swallow upper gi 07/16/2024 Hyperlipidemia (ICD-10 - E78.5) 06/12/2024 Obstructive sleep apnea (adult) (pediatric) (ICD-10 - G47.33) 11/28/2023 Encounter for screening for malignant neoplasm of colon (ICD-10 - Z12.11) 06/12/2024 Myalgia (ICD-10 - M79.10) 07/16/2024 Hyperglycemia due to diabetes mellitus (ICD-10 - E11.65) inc lantus to 60 07/16/2024 Knee osteoarthritis (ICD-10 - M17.10) refill tramadl 06/12/2024 Arthralgia (ICD-10 - M25.50) 06/19/2024 Other if amitryptalli ne nt helping - by tuesday - take 2 qt hs Plan Of Treatment Pending Test Test Name Order Date CMP (COMPLETE METABOLIC PANEL) 3 CULTURE, STOOL 12/15/2022 HEMOGLOBIN A1C (GLYCO) 06/12/2024 IRON, TOTAL 06/12/2024 LIPID PANEL (CHOL/TRIG/HDL/LDL) 06/13/19 25 VITAMIN D, 25 LEVEL (TOTAL) 06/12/2024 T3 FREE, T4 FREE and TSH 09/23/2022 CARDIO Echocardiogram 03/27/2024 FECAL OCCULT BLOOD 11/28/2023 C DIFF TOX PCR STOOL 12/15/2022 PT and PTT 03/25/2024 STOOL OCCULT BLOOD 06/12/2024 CBC AUTO DIFF 09/23/2022 CBC AUTO DIFF 11/28/2023 GLYCOHEMOGLOBIN A1C 09/23/2022 LIPID PROFILE 09/23/2022 LIVER PROFILE 03/25/2024 THYROID PROFILE WITH TSH 11/28/2023 US VJ DOP LEG RT 10/21/2023 THYROID PANEL (T4/TSH/FREE T3) 5 *CARDIO Stress Test - Lexiscan Nuclear 0 03/19/2024 CMP (COMP MET CHAMBERLAIN) w/eGFR CKD-EPI 2024 CBC WITH DIFF 06/12/2024 Medications Administered Medication Instructions Date of Administration Dosage Notes Dexamethasone, 4mg/mL 03/19/2024 12 mg Dexamethasone, 4mg/mL 06/12/2024 12 mg Ketorolac Tromethamine 03/19/2024 60 mg Promethazine, 25 mg 09/01/2023 25 mg 25 Medical (General) History Medical History History ICD Code Obstructive sleep apnea (adult) (pediatr ic) G47.33 Over weight E66.3 Osteoarthritis M19.90 Essential Hypertension I10 Well adult Z00.00 Hyperlipidemia E78.5 Diabetes type 2, controlled E11.9 Anxiety F41.9 Hypertensive retinopathy H35.039 Fibromyalgia M79.7 Astigmatism H52.209 Depression F32.9 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 Lap 2009 LT Knee nerve radiofrequency ablation- Dolores Nassar 07/12/2023 bilateral oophorectomy hysterectomy Hospitalization History Reason Date(Month/Year) Pleurisy, High BP 03/2024
--- OUTSIDE RECORDS SUMMARY | 2024-09-05 08:02 | XMS_ITS | CCD ---
Author Organization [facility] Care Team Providers Care Telephone Answering Service Operator Name Role Phone Dorys Flannery Unavailable Liliya Fletcher Unavailable MD Jaja Parry Primary Care Provider HAKEEM Fletcher Attending Provider Hudson Gu Unavailable [...] FUENTES ., DR WILKINSON Primary Care Unavailable MD Jaja Parry Primary Care Provider MD Gregg Nassar Attending Provider [phone] MD Jaja Parry Primary Care Provider MD Gregg Nassar Attending Provider [phone] Jaja Parry MD Primary Care Provider ADRIEN JACQUES Attending Unavailable Jaja Parry MD Primary Care Provider Gregg Nassar MD Attending Provider Jaja Parry MD Primary Care Provider Gregg Nassar MD Attending Provider Gregg Nassar MD Other Provider Gregg Nassar Admitting Unavailable Gregg Nassar Attending Unavailable Jaja Parry Primary Care Unavailable Gregg Nassar Admitting Unavailable Gregg Nassar Attending Unavailable Jaja Parry Primary Care Unavailable Gregg Nassar Admitting Unavailable Gregg Nassar Attending Unavailable Jaja Parry Primary Care Unavailable Dolly Hadley DDS Attending Unavailable Jaja Parry MD Primary Care Unavailable Allergies Allergy Classification Reported Allergen(s) Allergy Type Date of Onset Reaction(s) Facility Angiotensin Converting Enzyme (ROSS) Inhibitors (1 source) Lisinopril Drug Allergy 4 [facility] Cephalosporins (antibiotic) (1 source) Cephalexin Drug Allergy 4 Unknown Reaction [facility] (5 sources) Cephalexin; Translations: [Keflex] Drug Allergy 4 Unknown [facility] (1 source) Corticosteroids Drug allergy (disorder) 4 [facility] (1 source) DULoxetine Drug Allergy 4 [facility] (12 sources) Cephalexin; Translations: [cephalexin] Drug Allergy 3 Unknown Reaction [facility] (12 sources) Lisinopril; Translations: [lisinopril] Drug Allergy 3 [facility] Medications Current Medications Medication Drug Class(es) Dates Sig (Normalized) Sig (Original) acetaminophen 300 mg / codeine phosphate 30 mg oral tablet (3 sources) Opioid Agonist Start: 08-13-2024 ascorbic acid 60 mg / cholecalciferol 0.01 mg / folic acid 0.3 mg / niacin 13.5 mg / riboflavin 1.2 mg / sodium fluoride 0.55 mg / thiamine 1.05 mg / vitamin a 0.75 mg / vitamin b12 0.0045 mg / vitamin b6 1.05 mg / vitamin e 6.75 mg chewable tablet (3 sources) Nicotinic Acid, Vitamin A, Vitamin B12, Vitamin D, Vitamin C Pediatric Multivitamins-Fl (MultiVitamin + Fluoride) 0.25 MG chewable tablet Multivitamin Active cyclobenzaprine hydrochloride 10 mg oral tablet (5 sources) Muscle Relaxant Start: 07-11-2024 take 1 tablet by mouth three times daily as needed for muscle spasms DULoxetine 60 mg delayed release oral capsule (4 sources) Serotonin and Norepinephrine Reuptake Inhibitor Start: 07-24-2024 take 1 capsule by mouth once daily 3 ml insulin glargine 100 unt/ml pen injector (5 sources) Insulin Analog Start: 07-11-2024 Start: 07-11-2024 Insulin Glargi ne (Lantus Solostar U-100 Insulin) 100 unit/mL (3 mL) insulin pen Active UNIT SUBCUT July 11, 2024 12:00am lidocaine 0.05 mg/mg medicated patch (2 sources) Antiarrhythmic, Amide Local Anesthetic Start: 03-03-2022 Lidocaine 5 % 1 patch remove after 12 hours Externally Once a day for 30 days Feb, Active metoprolol tartrate 50 mg oral tablet (5 sources) beta-Adrenergic Jeremy Start: 07-11-2024 take 1 tablet by mouth twice daily multivit with min-folic acid (4 sources) Start: 07-11-2024 take 1 tablet by mouth once daily Start: 07-11-2024 take 1 tablet by larissa th once daily multivit with min-folic acid Active 1 TAB PO Daily July 11, 2024 12:00am Complies with drug therapy Start: 07-11-2024 take 1 tablet by larissa th once daily multivit with min-folic acid Active 1 TAB PO Daily July 11, 2024 12:00am multivit with min-folic acid (Adult Multivitamin Gummies) (1 source) Start: 07-11-2024 multivit with min-folic acid (Adult Multivitamin Gummies) Active PO July 11, 2024 12:00am ondansetron 4 mg oral tablet (1 source) Serotonin-3 Receptor Antagonist Start: 2021 take 1 tablet by mouth every eight hours as needed Zofran ODT 4 MG 1 tablet on the tongue and allow to dissolve Orally every 8 hrs as needed for 4 days Sep, Active pantoprazole 40 mg delayed release oral tablet (3 sources) Proton Pump Inhibitor Start: 07-11-2024 take 1 tablet by mouth once Pantoprazole 40 mg tablet,delayed release (DR/EC) (2 sources) Start: 07-11-2024 take 1 tablet by mouth once Pantoprazole 40 mg tablet,delayed release (DR/EC) Active 40 MG PO Once July 11, 2024 12:00am simvastatin 20 mg oral tablet (12 sources) HMG-CoA Reductase Inhibitor Start: 07-11-2024 take 1 tablet by mouth once daily Simvastatin Acti ve Tart Thapa (4 sources) Tart Thapa Acti ve Tart Thapa 1200 MG capsule (3 sources) Tart Thapa 1200 MG capsule Tart Thapa Active Completed/Discontinued Medications Medication Drug Class(es) Dates Sig (Normalized) Sig (Original) ARIPiprazole 5 mg oral tablet (18 sources) Atypical Antipsychotic Start: 05-09-2023 End: 07-11-2024 take 1 tablet by mouth once daily Aripiprazole 5 mg tablet Discontinued 5 MG PO Daily May 09, 2023 12:00am July 11, 2024 10:48am FreeTextSi tablet Orally Once a day; Note: Source Status: Taking; Provider: Marga Flores ( ) Abilify Active 24 hr buPROPion hydrochloride 300 mg extended release oral tablet (16 sources) Aminoketone Start: 05-09-2023 End: 07-11-2024 take 1 tablet by mouth once daily in the morning Bupropion Hcl 300 mg tablet extended release 24 hr Discontinued 1 TAB PO Daily May 09, 2023 12:00am July 11, 2024 10:47am FreeTextSi tablet in the morning Orally Once a day; Note: Source Status: Taking; Provider: Marga Flores ( ) take 1 tablet by larissa th every twenty-four hours in the morning buPROPion XL (Wellbutrin XL) 300 MG 24 h r tablet Take 300 mg by mouth in the morning. Active take 1 tablet by larissa th every twenty-four hours buPROPion HCl ER (XL) 300 MG 1 tablet in the morning Orally Once a day Active empagliflozin 25 mg oral tablet (14 sources) Sodium-Glucose Cotransporter 2 Inhibitor Start: 05-09-2023 End: 07-11-2024 take 1 tablet by mouth once daily Empagliflozin (Jardiance) 25 mg tablet Discontinued 25 MG PO Daily May 09, 2023 12:00am July 11, 2024 10:47am Start: 04-16-2022 take 10 mg by mouth in the morning Jardiance 10 MG Take 10 mg by mouth in the morning. 04/16/2022 Active metFORMIN hydrochloride 500 mg oral tablet (18 sources) Biguanide Start: 05-09-2023 End: 07-11-2024 take 1 tablet by mouth once daily Metformin 500 mg tablet Discontinued 500 MG PO Daily May 09, 2023 12:00am July 11, 2024 10:47am FreeTextSi tablet with a meal Orally Once a day; Note: Source Status: Taking; Provider: Marga Flores ( ) take 2 tablets by mouth at mealt maddie metFORMIN (Glucophage) 500 MG tablet Take 1,000 mg by mouth in the morning. Take with meals. Active take 1 tablet by larissa th every twenty-four hours metFORMIN HCl 500 MG 1 tablet with a danielle l Orally Once a day Active metFORMIN HCl Ac tive nabumetone 500 mg oral tablet (13 sources) Nonsteroidal Anti-inflammatory Drug Start: 05-09-2023 End: 07-11-2024 take 1 tablet by mouth twice daily Nabumetone 500 mg tablet Discontinued 1 TAB PO Twice daily May 09, 2023 12:00am July 11, 2024 10:47am FreeTextSi tablet Orally Twice a day; Note: Source Status: Taking; Provider: Marga Flores ( ) take 1 tablet by larissa th every twelve hours Nabumetone 500 MG 1 tablet Orally Twice a day Active pioglitazone 45 mg oral tablet (18 sources) Peroxisome Proliferator Receptor alpha Agonist, Peroxisome Proliferator Receptor gamma Agonist, Thiazolidinedione Start: 05-09-2023 End: 07-11-2024 take 1 tablet by mouth once daily Pioglitazone 45 mg tablet Discontinued 45 MG PO Daily May 09, 2023 12:00am July 11, 2024 10:47am FreeTextSi tablet Orally Once a day; Note: Source Status: Taking; Provider: Marga Flores ( ) Actos Active sertraline 100 mg oral tablet (18 sources) Serotonin Reuptake Inhibitor Start: 05-09-2023 End: 07-11-2024 take 1 tablet by mouth once daily Sertraline 100 mg tablet Discontinued 100 MG PO Daily May 09, 2023 12:00am July 11, 2024 10:47am FreeTextSi tablet Orally Once a day; Note: Source Status: Taking; Provider: Marga Flores ( ) Zoloft Active SITagliptin 100 mg oral tablet (16 sources) Dipeptidyl Peptidase 4 Inhibitor Start: 05-09-2023 End: 07-11-2024 take 1 tablet by mouth once daily Sitagliptin Phosphate 100 mg tablet Discontinued 1 TAB PO Daily May 09, 2023 12:00am July 11, 2024 10:47am FreeTextSi tablet Orally Once a day; Note: Source Status: Taking; Provider: Marga Flores ( ) traMADol hydrochloride 50 mg oral tablet (17 sources) Opioid Agonist Start: 10-13-2023 End: 08-13-2024 take 1 tablet by mouth twice daily as needed for pain Tramadol 50 mg tablet Discontinued 50 MG PO Twice daily as needed for pain 30 October 13, 2023 12:00am August 13, 2024 8:25am Start: 05-12-2023 End: 07-12-2023 take 1 tablet by mouth every four to six hours as needed for pain Tramadol 50 mg tablet Discontinued 50 MG PO EVERY 4-6 HOURS as needed for pain 42 May 12, 2023 12:00am July 12, 2023 9:53am dispense #42 (forty two) DX: S83.207A triamcinolone acetonide 40 mg/ml injectable suspension (3 sources) Corticosteroid Start: 03-31-2022 Kenalog-40 Jul, 40 mg Vit C-S.Mslrsb-Wvfvbv-Vflay Sd (Tart Thapa) [id number] mg capsule (9 sources) Start: 07-12-2023 End: 07-24-2024 Vit C-S.Egrdca-Fbzbjm-Sqqid Sd (Tart Thapa) 91-896-93-75-20 mg capsule Discontinued CAP PO July 12, 2023 12:00am July 24, 2024 9:24am Start: 07-12-2023 Vit C-S.Thapa -Celery-Grape Sd (Tart Thapa) [id number] mg capsule Active CAP PO July 12, 2023 12:00am Problems Active Problems Problem Classification Problem Date Documented Date Episodic/Chronic Diabetes mellitus with complications (3 sources) Type 2 diabetes mellitus with hyperglycemia; Translations: [Polyneuropathy due to diabetes mellitus] Onset: 10-07-2021 07-12-2024 Chronic Disorders of lipid metabolism (1 source) Hyperlipidemia, unspecified; Translations: [HYPERLIPIDEMIA UNSPECIFIED] Onset: 10-07-2021 Chronic Joint disorders and dislocations; trauma-related (20 sources) Unspecified tear of unspecified meniscus, current injury, left knee, initial encounter; Translations: [Unspecified tear of unspecified meniscus, current injury, left knee, subsequent encounter] Onset: 02-25-2022 Episodic Mycoses (2 sources) Pain in toe; Translations: [Tinea unguium] 07-12-2024 Episodic Osteoarthritis (20 sources) Osteoarthritis of left knee joint; Translations: [Unilateral primary osteoarthritis, left knee] Onset: 03-09-2022 Chronic Other connective tissue disease (13 sources) Fibromyalgia; Translations: [Fibromyalgia] 07-11-2024 Episodic Other connective tissue disease (2 sources) Fibromyalgia; Translations: [Myalgia and myositis, unspecified] 07-11-2024 Episodic Other diseases of veins and lymphatics (2 sources) Vascular insufficiency; Translations: [Venous insufficiency (chronic) (peripheral)] 07-12-2024 Episodic Other nervous system disorders (17 sources) Chronic pain; Translations: [Other chronic pain] 06-30-2023 Chronic Other nervous system disorders (10 sources) Other chronic pain; Translations: [Other chronic pain] Onset: 07-24-2024 06-30-2023 Chronic Other non-traumatic joint disorders (18 sources) Pain in unspecified knee; Translations: [Knee pain] 06-17-2023 Episodic Other screening for suspected conditions (not mental disorders or infectious disease) (1 source) Encounter for screening for dental disorders; Translations: [Encounter for screening for dental disorders] Onset: 08-31-2024 Episodic Residual codes; unclassified (4 sources) Obstructive sleep apnea (adult) (pediatric); Translations: [OBSTRUCTIVE SLEEP APNEA] Onset: 06-23-2022 Chronic Superficial injury; contusion (20 sources) Contusion of left knee, initial encounter; Translations: [Contusion of left knee] Episodic Unclassified (3 sources) Call Dr. Horne office to schedule a follow up appointment if you do not already have one scheduled Past or Other Problems Problem Classification Problem Date Documented Da te Episodic/Chronic Deficiency and other anemia (1 source) Anemia, unspecified; Translations: [ANEMIA UNSPECIFIED] Onset: 10-07-2021 Episodic Immunizations and screening for infectious disease (1 source) Contact with and (suspected) exposure to other viral communicable diseases Onset: 2021 Resolved: 2021 Episodic Other non-traumatic joint disorders (8 sources) Pain in left knee; Translations: [PAIN IN LEFT KNEE] Onset: 02-22-2022 Episodic Residual codes; unclassified (1 source) Edema, unspecified; Translations: [EDEMA UNSPECIFIED] Onset: 02-25-2022 Episodic Sprains and strains (1 source) Strain of other muscle(s) and tendon(s) at lower leg level, left leg, initial encounter; Translations: [STRAIN OTH MSC TEND LOW LT LEG INIT] Onset: 02-25-2022 Episodic Viral infection (1 source) COVID-19 Onset: 2021 Resolved: 2021 Results Test Name Value Interpretation Reference Range Facility X-ray reportOrdered By: Ander Harris on 08-30-2024 Study report [facility] [address] [place] [address] XRay Report Signed Patient: Susanne Clark MR#: [id number] : 1965 Acct:[id number] Age/Sex: 58 / F ADM Date: 5 Loc: [facility] Room: Type: [facility] Attending Dr: Gregg Nassar MD Copies to: Gregg Nassar MD~ Ordering Provider: Gregg Nassar MD Date of Service: 08/30/24 XR/XR knee LT 2V: M17.12 - Unilateral primary osteoarthritis, left knee 2 views left knee plain film COMPARISON: 10/13/2023 HISTORY: Left knee pain for months ACUTE FINDINGS: No acute findings DEGENERATIVE CHANGE: Superior patellar enthesophyte. Mild similar degeneration. SOFT TISSUE FINDINGS: Unremarkable JOINT EFFUSION: None POSTOP CHANGES: None BONE MINERALIZATION: Adequate XR/XR knee LT 2V IMPRESSION: Similar mild degenerative change Impression dictated by: Dann Harris M.D. 08/30/2024 4:59 PM Dictation Location: RADIO-PC-23 Transcribed By: IGOR 08/30/241658 Dictated By: Dann Harris DO 08/30/241657 Signed By: 08/30/241658 [facility] XR knee LT 2Von 08-30-2024 XR knee LT 2V [facility] [address] [place] [address] XRay Report Signed Patient: Susanne Clark MR#: [id number] : 1965 Acct:[id number] Age/Sex: 58 / F ADM Date: 08/30/24 Loc: [facility] Room: Type: [facility] CLI Attending Dr: Gregg Nassar MD Copies to: Gregg Nassar MD Ordering Provider: Gregg Nassar MD Date of Service: 08/30/24 XR/XR knee LT 2V: M17.12 - Unilateral primary osteoarthritis, left knee 2 views left knee plain film COMPARISON: 10/13/2023 HISTORY: Left knee pain for months ACUTE FINDINGS: No acute findings DEGENERATIVE CHANGE: Superior patellar enthesophyte. Mild similar degeneration. SOFT TISSUE FINDINGS: Unremarkable JOINT EFFUSION: None POSTOP CHANGES: None BONE MINERALIZATION: Adequate XR/XR knee LT 2V IMPRESSION: Similar mild degenerative change Impression dictated by: Dann Harris M.D. 08/30/2024 4:59 PM Dictation Location: RADIO-PC-23 Transcribed By: IGOR 08/30/241658 Dictated By: Dann Harris DO 08/30/241657 Signed By: 08/30/241658 Normal [facility] XR knee LT 2Von 10-13-2023 XR knee LT 2V [facility] [place] [address] XRay Report Signed Patient: Susanne Clark MR#: [id number] : 1965 Acct:[id number] Age/Sex: 58 / F ADM Date: 10/13/23 Loc: [facility] Room: Type: [facility] CLI Attending Dr: Gregg Nassar MD Copies to: [...] PROCESS. Impression dictated by: Freedom Foster Jr., Ashu10/13/2023 12:32 PM Dictation Location: [place] [address] Transcribed By: [facility] 10/13/23 1232 Dictated By: Freedom Foster Jr, DO 10/13/23 1231 Signed By: 10/13/23 1232 Normal [facility] MRI KNEE LT WO CONon 023 MRI [...] by: NOHEMY MARCOS Date: 2022-02-22 08:51 Normal [facility] XR knee LT 4V*on 12-12-2021 XR knee LT 4V* [facility] [employer] Other XR knee LT 4V* [facility] [employer] Other XR knee LT 4V* [address] [place] [address] [employer] Other XR knee LT 4V* [place] [address] No rt [employer] Other XR knee LT 4V* XRay Report [employer] Other XR knee LT 4V* Signed [employer] Other XR knee LT 4V* Patient: Susanne Clark MR#: [id number] [employer] Other XR knee LT 4V* [id number] [employer] Other XR knee LT 4V* : 1965 Acct:[id number] [employer] Other XR knee LT 4V* Age/Sex: 56 / F ADM Date: 12/12/21 [employer] Other XR knee LT 4V* Loc: [facility] Room: Type: [facility] [employer] Other XR knee LT 4V* Attending Dr: Liliya PALACIO [employer] Other XR knee LT 4V* Copies to: HAKEEM Lim [employer] Other XR knee LT 4V* Ordering Provider: HAKEEM Lim [employer] Other XR knee LT 4V* Date of Service: 12/12/21 [employer] Other XR knee LT 4V* XR/XR knee LT 4V*: Acute pain of left knee [employer] Other XR knee LT 4V* XR knee LT 4V* 12/12/2021 12:41 PM [employer] Other XR knee LT 4V* SIGNS AND SYMPTOMS: Left knee pain after fall [employer] Other XR knee LT 4V* PROTOCOL: Frontal, lateral, and oblique radiographs of the left knee [employer] Other XR knee LT 4V* COMPARISON: None Nort [employer] Other XR knee LT 4V* FINDINGS: [employer] Other XR knee LT 4V* There is mild narrowing of the patellofemoral joint space with minimal narrowing of the medial [employer] Other XR knee LT 4V* weightbearing joint space. There is no evidence of fracture. No dislocation or subluxation. No [employer] Other XR knee LT 4V* joint effusion. No significant soft tissue swelling. [employer] Other XR knee LT 4V* XR/XR knee LT 4V* [employer] Other XR knee LT 4V* IMPRESSION: [employer] Other XR knee LT 4V* No acute bony injury. [employer] Other XR knee LT 4V* Mild degenerative changes are noted, as above. [employer] Other XR knee LT 4V* Impression dictated by: Bernardo Camacho M.D.12/12/2021 12:59 PM [employer] Other XR knee LT 4V* Dictation Location: [place] [address] [employer] Other XR knee LT 4V* Transcribed By: IGOR 12/12/21 1259 [employer] Other XR knee LT 4V* Dictated By: Bernardo Camacho II, MD 12/12/21 1258 [employer] Other XR knee LT 4V* Signed By: Maulik [employer] Other XR knee LT 4V* 12/12/21 1259 [facility]ul[facility] [employer] Other SARS-CoV-2 (COVID-19) RNA NA A+probe Ql (Resp)on 2021 SARS-CoV-2 (COVID-19) RNA ALYSSA+probe Ql (Unsp spec) Positive [employer] Other T4 [facility] 10-06-2021 T4 [Mass/Vol] 7.2 ug/dL Normal 4.5-12.0 [facility] Comment on above: Performed By: #### T 4LC #### [facility] [address] [place] [address] [address] Chana Ceballos VIT D 25-OH [facility] 2021 Vitamin D, 25-Hydroxy 33.8 ng/mL Normal 30.0-100.0 [facility] Comment on above: Result Comment: Divya min D deficiency has been defined by the [place] of [employer] and an Endocrine Society practice guideline as a level of serum 25-OH vitamin D less than 20 ng/mL (1,2). The Endocrine Society went on to further define vitamin D insufficiency as a level between 21 and 29 ng/mL (2). 1. IOM ([place] of Medicine). 2010. Dietary reference intakes for calcium and D. [place]: The National Academies Press. 2. Sundar CORDERO, Dinorah RIVERA, Kimberly GIBSON, et al. Evaluation, treatment, and prevention of vitamin D deficiency: an Endocrine Society clinical practice guideline. JCEM. 2011 Aug; 96(7):1911-30. Performed By: #### V ITADLC #### [facility] [address] [address] [address] Chana Ceballos CBC AUTO DIFFon 10-05-2021 BASO # 0.0 103/ul Normal 0.0-0.1 [facility] Comment on above: Performed By: #### C BC #### [facility] [address] [address] [address] Chana Ceballos Basophils/100 WBC (Bld) 0.3 % Normal 0.2-2.0 [facility] Comment on above: Performed By: #### C BC #### [facility] [address] [address] [address] Chana Ceballos EO # 0.2 103/ul Normal 0.0-0.7 [facility] Comment on above: Performed By: #### C BC #### [facility] [address] [address] [address] Chana Ceballos Eosinophils/100 WBC (Bld) 2.1 % Normal 0.9-7.0 [facility] Comment on above: Performed By: #### C BC #### [facility] [address] [place] [address] Dr. Chana Ceballos Erythrocyte distribution width (RBC) [Ratio] 12.3 % Normal 11.0-15.0 [facility] Comment on above: Performed By: #### C BC #### [facility] [address] [place] [address] Dr. Chana Ceballos Hematocrit (Bld) [Volume fraction] 41.7 % Normal 36.0-48.0 [facility] Comment on above: Performed By: #### C BC #### [facility] [address] [place] [address] Dr. Chana Ceballos Hemoglobin (Bld) [Mass/Vol] 13.6 g/dL Normal 12.0-16.0 [facility] Comment on above: Performed By: #### C BC #### [facility] [address] [place] [address] Dr. Chana Ceballos IG # 0.04 10e3/ul Critically high 0.00-0.03 [facility] Comment on above: Performed By: #### C BC #### [facility] [address] [address] [address] Chana Ceballos IG % 0.6 % Critically high 0.0-0.5 [facility] Comment on above: Performed By: #### C BC #### [facility] [address] [place] [address] Dr. Chana Ceballos LYMPH # 1.4 103/ul Normal 1.2-3.8 [facility] Comment on above: Performed By: #### C BC #### [facility] [address] [place] [address] Dr. Chana Ceballos Lymphocytes/100 WBC (Bld) 19.8 % Critically low 20.5-60.0 [facility] Comment on above: Performed By: #### C BC #### [facility] [address] [place] [address] Dr. Chana Ceballos MANUAL DIFF REQ NO Normal [facility] Comment on above: Performed By: #### C BC #### [facility] [address] [place] [address] Dr. Chana Ceballos MCH (RBC) [Entitic mass] 30.3 pg Normal 26.7-34.0 [facility] Comment on above: Performed By: #### C BC #### [facility] [address] [place] [address] Dr. Chana Ceballos MCHC (RBC) [Mass/Vol] 32.6 g/dL Normal 29.9-35.2 [facility] Comment on above: Performed By: #### C BC #### [facility] [address] [place] [address] Dr. Chana Ceballos MCV (RBC) [Entitic vol] 92.9 fL Normal 81.0-99.0 [facility] Comment on above: Performed By: #### C BC #### [facility] [address] [place] [address] Dr. Chana Ceballos MONO # 0.7 103/ul Normal 0.3-0.8 [facility] Comment on above: Performed By: #### C BC #### [facility] [address] [place] [address] Dr. Chana Ceballos Monocytes/100 WBC (Bld) 10.2 % Normal 1.7-12.0 [facility] Comment on above: Performed By: #### C BC #### [facility] [address] [address] [address] Chana Ceballos NEUT # 4.7 103/ul Normal 1.4-6.5 [facility] Comment on above: Performed By: #### C BC #### [facility] [address] [address] [address] Chana Ceballos Neutrophils/100 WBC (Bld) 67.0 % Normal 43.0-75.0 [facility] Comment on above: Performed By: #### C BC #### [facility] [address] [place] [address] Dr. Chana Ceballos Platelet mean volume (Bld) [Entitic vol] 11.0 fL Normal 9.5-13.5 [facility] Comment on above: Performed By: #### C BC #### [facility] [address] [place] [address] Dr. Chana Ceballso PLT 212 103/ul Normal 150-450 [facility] Comment on above: Performed By: #### C BC #### [facility] [address] [place] [address] Dr. Chana Ceballos WBC 7.1 103/ul Normal 4.0-11.0 [facility] Comment on above: Performed By: #### C BC #### [facility] [address] [place] [address] Dr. Chana Ceballos FREE T3on 10-05-2021 FREE T3 2.32 pg/mlL Normal 2.18-3.98 [facility] Comment on above: Performed By: #### T SH, CMP, LIPID, FT3 #### [facility] [address] [place] [address] Dr. Chana Ceballos GLYCOHEMOGLOBIN A1Con 2021 ADA RECOMMENDATION SEE BELOW Normal [facility] Comment on above: Result Comment: ADA RECOMMENDED LIMIT 4.0 - 6.0 ADA THERAPEUTIC TARGET < 7.0 ACTION SUGGESTED > 7.0 Performed By: #### A 1C #### [facility] [address] [place] [address] Dr. Chana Ceballos Glucose [Mass/Vol] 169 mg/dL Normal [facility] Comment on above: Performed By: #### A 1C #### [facility] [address] [address] [address] Chana Ceballos HbA1c (Bld) [Mass fraction] 7.5 % Critically high 4.5-6.2 [facility] Comment on above: Performed By: #### A 1C #### [facility] [address] [address] [address] Chana Ceballos LIPID PROFILEon 10-05-2021 CHOL-HDL RATIO NORM SEE BELOW Normal [facility] Comment on above: Result Comment: 3.3 - 4.4 LOW RISK 4.4 - 7.1 AVERAGE RISK 7.1 - 11.0 MODERATE RISK >11.0 HIGH RISK Performed By: #### T SH, CMP, LIPID, FT3 #### [facility] [address] [address] [address] Chana Ceballos Cholesterol [Mass/Vol] 217 mg/dL Critically high <=200 [facility] Comment on above: Performed By: #### T SH, CMP, LIPID, FT3 #### [facility] [address] [address] [address] Chana Ceballos Cholesterol in HDL [Mass/Vol] 38 mg/dL Critically low 40-60 [facility] Comment on above: Performed By: #### T SH, CMP, LIPID, FT3 #### [facility] [address] [address] [address] Chana Ceballos Cholesterol in LDL [Mass/Vol] 137.4 mg/dL Normal [facility] Comment on above: Performed By: #### T SH, CMP, LIPID, FT3 #### [facility] [address] [address] [address] Chana Ceballos Cholesterol.total/Ch olesterol in HDL [Mass ratio] 5.7 {ratio} Normal [facility] Comment on above: Performed By: #### T SH, CMP, LIPID, FT3 #### [facility] [address] [address] [address] Chana Ceballos HDL NORMAL > or = 60 mg/dl - LOW CARDIOVASCULAR RISK <40 mg/dl - HIGH CARDIOVASCULAR RISK Normal [facility] Comment on above: Performed By: #### T SH, CMP, LIPID, FT3 #### [facility] [address] [address] [address] Chana Ceballos LDL CALC NORMAL SEE BELOW Normal [facility] Comment on above: Result Comment: <100 mg/dl OPTIMAL 100 - 129 mg/dl NEAR OR ABOVE OPTIMAL 130 - 159 mg/dl BORDERLINE HIGH 160 - 189 mg/dl HIGH >190 mg/dl VERY HIGH Performed By: #### T SH, CMP, LIPID, FT3 #### [facility] [address] [address] [address] Chana Ceballos Triglyceride [Mass/Vol] 208 mg/dL Critically high <=150 [facility] Comment on above: Performed By: #### T SH, CMP, LIPID, FT3 #### [facility] [address] [address] [address] Chana Ceballos VLDL CALC 41.6 mg/dL Normal [facility] Comment on above: Performed By: #### T SH, CMP, LIPID, FT3 #### [facility] [address] [address] [address] Chana Ceballos PROF 14(COMP METB)on 022 Albumin [Mass/Vol] 4.2 g/dL Normal 3.4-5.0 [facility] Comment on above: Performed By: #### T SH, CMP, LIPID, FT3 #### [facility] [address] [address] [address] Chana Ceballos Albumin/Globulin [Mass ratio] 1.2 {ratio} Normal [facility] Comment on above: Performed By: #### T SH, CMP, LIPID, FT3 #### [facility] [address] [address] [address] Chana Ceballos ALP [Catalytic activity/Vol] 61 U/L Normal 46-116 [facility] Comment on above: Performed By: #### T SH, CMP, LIPID, FT3 #### [facility] [address] [address] [address] Chana Ceballos ALT [Catalytic activity/Vol] 29 U/L Normal 14-59 [facility] Comment on above: Performed By: #### T SH, CMP, LIPID, FT3 #### [facility] [address] [address] [address] Chana Ceballos Anion gap [Moles/Vol] 14.3 mmol/L Normal [facility] Comment on above: Performed By: #### T SH, CMP, LIPID, FT3 #### [facility] [address] [place] [address] Dr. Chana Ceballos AST [Catalytic activity/Vol] 17 U/L Normal 15-37 [facility] Comment on above: Performed By: #### T SH, CMP, LIPID, FT3 #### [facility] [address] [place] [address] Dr. Chana Ceballos Bilirubin [Mass/Vol] 0.2 mg/dL Normal 0.2-1.0 [facility] Comment on above: Performed By: #### T SH, CMP, LIPID, FT3 #### [facility] [address] [place] [address] Dr. Chana Ceballos Calcium [Mass/Vol] 9.0 mg/dL Normal 8.5-10.1 [facility] Comment on above: Performed By: #### T SH, CMP, LIPID, FT3 #### [facility] [address] [place] [address] Dr. Chana Ceballos Chloride [Moles/Vol] 103 mmol/L Normal 98-107 [facility] Comment on above: Performed By: #### T SH, CMP, LIPID, FT3 #### [facility] [address] [place] [address] Dr. Chana Ceballos CO2 [Moles/Vol] 25.1 mmol/L Normal 21.0-32.0 [facility] Comment on above: Performed By: #### T SH, CMP, LIPID, FT3 #### [facility] [address] [place] [address] Dr. Chana Ceballos Creatinine [Mass/Vol] 0.93 mg/dL Normal 0.55-1.02 [facility] Comment on above: Performed By: #### T SH, CMP, LIPID, FT3 #### [facility] [address] [address] [address] Chana Ceballos EGFR-AF LUXEMBOURGER >60 Normal >=60 [facility] Comment on above: Performed By: #### T SH, CMP, LIPID, FT3 #### [facility] [address] [address] [address] Chana Ceballos EGFR-NON AF LUXEMBOURGER >60 Normal >=60 [facility] Comment on above: Performed By: #### T SH, CMP, LIPID, FT3 #### [facility] [address] [address] [address] Chana Ceballos Globulin (S) [Mass/Vol] 3.4 g/dL Normal [facility] Comment on above: Performed By: #### T SH, CMP, LIPID, FT3 #### [facility] [address] [address] [address] Chana Ceballos Glucose [Mass/Vol] 198 mg/dL Critically high 74-106 [facility] Comment on above: Performed By: #### T SH, CMP, LIPID, FT3 #### [facility] [address] [address] [address] Chana Ceballos Potassium [Moles/Vol] 4.4 mmol/L Normal 3.5-5.1 [facility] Comment on above: Performed By: #### T SH, CMP, LIPID, FT3 #### [facility] [address] [address] [address] Chana Ceballos Protein [Mass/Vol] 7.6 g/dL Normal 6.4-8.2 [facility] Comment on above: Performed By: #### T SH, CMP, LIPID, FT3 #### [facility] [address] [address] [address] Chana Ceballos Sodium [Moles/Vol] 138 mmol/L Normal 136-145 [facility] Comment on above: Performed By: #### T SH, CMP, LIPID, FT3 #### [facility] [address] [address] [address] Chana Ceballos Urea nitrogen [Mass/Vol] 18.0 mg/dL Normal 7.0-18.0 [facility] Comment on above: Performed By: #### T SH, CMP, LIPID, FT3 #### [facility] [address] [address] [address] Chana Ceballos Urea nitrogen/Creatinine [Mass ratio] 19.4 mg/mg Normal [facility] Comment on above: Performed By: #### T SH, CMP, LIPID, FT3 #### [facility] [address] [address] [address] Chana Ceballos TSHon 10-05-2021 TSH 2.219 uIU/mL Normal 0.358-3.740 [facility] Comment on above: Performed By: #### T SH, CMP, LIPID, FT3 #### [facility] [address] [address] [address] Chana Ceballos Vital Signs Date Time Vital Sign Value Performing Clinician Facility 07-24-2024 10:45-0400 Diastolic blood pressure 82 mm[Hg] Jaja Parry MD Work Phone: [facility] 07-24-2024 10:45-0400 Heart rate 75 /min Jaja Parry MD Work Phone: [facility] 07-24-2024 10:45-0400 Respiratory rate 16 /min Jaja Parry MD Work Phone: [facility] 07-24-2024 10:45-0400 SaO2% (BldA) [Mass fraction] 93 % Jaja Parry MD Work Phone: [facility] 07-24-2024 10:45-0400 Systolic blood pressure 123 mm[Hg] Jaja Parry MD Work Phone: [facility] 07-24-2024 10:12-0400 Inhaled oxygen flow rate 3 L/min Jaja Parry MD Work Phone: [facility] 07-24-2024 09:26-0400 Body height 167.64 cm Jaja Parry MD Work Phone: [facility] 07-24-2024 09:26-0400 Body weight 102.05 kg Jaja Parry MD Work Phone: [facility] 07-12-2024 10:10-0400 Body height 167.6 cm Adrien Jacques DPM Work Phone: [facility] 07-12-2024 10:10-0400 Body mass index (BMI) [Ratio] 38.74 kg/m2 Adrien Jacques DPM Work Phone: [facility] 07-12-2024 10:10-0400 Body weight 108.86 kg Adrien Jacques DPM Work Phone: [facility] 07-12-2024 10:10-0400 Respiratory rate 18 /min Adrien Jacques DPM Work Phone: [facility] 07-12-2023 11:25-0400 Diastolic blood pressure 88 mm[Hg] MD Jaja Parry Work Phone: [facility] 07-12-2023 11:25-0400 Heart rate 82 /min MD Jaja Parry Work Phone: [facility] 07-12-2023 11:25-0400 Respiratory rate 16 /min MD Jaja Parry Work Phone: [facility] 07-12-2023 11:25-0400 SaO2% (BldA) [Mass fraction] 99 % MD Jaja Parry Work Phone: [facility] 07-12-2023 11:25-0400 Systolic blood pressure 138 mm[Hg] MD Jaja Parry Work Phone: [facility] 07-12-2023 10:51-0400 Inhaled oxygen flow rate 3 L/min MD Jaja Parry Work Phone: [facility] 07-12-2023 09:56-0400 Body height 167.64 cm MD Jaja Parry Work Phone: [facility] 07-12-2023 09:56-0400 Body weight 108.86 kg MD Jaja Parry Work Phone: [facility] 06-17-2023 08:47-0400 Body height 167.64 cm [facility] 06-17-2023 08:47-0400 Body mass index (BMI) [Ratio] 38.4 kg/m2 [facility] 06-17-2023 08:47-0400 Body weight 108 kg [facility] 05-09-2023 08:58-0400 Body height 167.64 cm [facility] 05-09-2023 08:58-0400 Body mass index (BMI) [Ratio] 38.7 kg/m2 [facility] 05-09-2023 08:58-0400 Body weight 108.94 kg [facility] 07-28-2022 08:15-0400 Body height 167.64 cm Hudson Gu Other [facility] Other 07-28-2022 08:15-0400 Body mass index (BMI) [Ratio] 38.73 kg/m2 Hudson [facility] Other [facility] Other 07-28-2022 08:15-0400 Body weight 108.86 kg Hudson Gu Other [facility] Other 12-12-2021 13:05-0400 Body height 167.64 cm Liliya Fletcher Other [facility] Other 12-12-2021 13:05-0400 Body mass index (BMI) [Ratio] 35.51 kg/m2 Liliya Justine Other [facility] Other 12-12-2021 13:05-0400 Body temperature 97.9 [degF] Liliya Justine Other [facility] Other 12-12-2021 13:05-0400 Body weight 99.79 kg Liliya Fletcher Other [facility] Other 12-12-2021 13:05-0400 Diastolic blood pressure 74 mm[Hg] Liliya Fletcher Other [facility] Other 12-12-2021 13:05-0400 Respiratory rate 18 /min Liliya Fletcher Other [facility] Other 12-12-2021 13:05-0400 SaO2% (BldA) [Mass fraction] 99 % Liliya Fletcher Other [facility] Other 12-12-2021 13:05-0400 Systolic blood pressure 138 mm[Hg] Liliya Fletcher Other [facility] Other 2021 12:30-0400 Body height 167.64 cm Dorys Pughault Other [facility] Other 2021 12:30-0400 Body mass index (BMI) [Ratio] 36.31 kg/m2 Dorys Prudencio Other [facility] Other 2021 12:30-0400 Body temperature 97 [degF] Dorys Pughault Other [facility] Other 2021 12:30-0400 Body weight 102.06 kg Dorys Pughault Other [facility] Other Encounters Encounter Date Encounter Type Care Provider Facility Start: 08-31-2024 ambulatory Dolly Hadley DDS [facility] Start: 08-30-2024 End: 08-30-2024 ambulatory Jaja Parry MD Work Phone: [facility] Work Phone: Start: 08-30-2024 End: 08-30-2024 Patient encounter procedure Gregg Kapoor MD -Counts Include [facility] Work Phone: Start: 08-13-2024 End: 08-13-2024 ambulatory Jaja Parry MD Work Phone: [facility] Work Phone: Start: 08-13-2024 End: 08-13-2024 Patient encounter procedure Gregg Kapoor MD -Counts Include [address] [facility] Work Phone: Start: 07-24-2024 Non-patient / Non-visit Christal Parry MD Work Phone: [facility]-Counts Include [address] [facility] Work Phone: Start: 07-24-2024 End: 07-24-2024 Admission to same day surgery center Jaja Parry MD Work Phone: [facility] Work Phone: Start: 07-24-2024 End: 07-24-2024 ambulatory Jaja Parry MD Work Phone: [facility] Work Phone: Start: 07-12-2024 End: 07-12-2024 Bamboo flowsheet Adrien Jacques DPM Work Phone: [facility] Start: 07-12-2024 End: 07-12-2024 Bamboo flowsheet Adrien Jcaques DPM Work Phone: [facility] Start: 07-12-2024 End: 07-12-2024 Office outpatient new 30 minutes Adrien Jacques DPM Work Phone: [facility] Comment on above: Venous insufficiency (Primary Dx); Diabetes mellitus due to underlying condition with diabetic polyneuropathy, without long-term current use of insulin ([facility]); Pain due to onychomycosis of toenails of both feet Start: 07-12-2024 End: 07-12-2024 ambulatory ADRIEN JACQUES Not Available Start: 07-11-2024 End: 07-11-2024 ambulatory [facility] Work Phone: Start: 07-11-2024 End: 07-11-2024 Patient encounter procedure [facility] Work Phone: Start: 10-13-2023 End: 10-13-2023 ambulatory MD Jaja Parry Work Phone: [facility] Work Phone: Start: 10-13-2023 End: 10-13-2023 Patient encounter procedure MD Jaja Parry Work Phone: [facility] Work Phone: Start: 08-01-2023 End: 08-01-2023 ambulatory MD Jaja Parry Work Phone: [facility] Work Phone: Start: 08-01-2023 End: 08-01-2023 Patient encounter procedure MD Jaja Parry Work Phone: [facility] Work Phone: Start: 07-12-2023 Non-patient / Non-visit MD Linnea Parry Work Phone: [facility] Work Phone: Start: 07-12-2023 End: 07-12-2023 Admission to same day surgery center MD Jaja Parry Work Phone: [facility] Work Phone: Start: 07-12-2023 End: 07-12-2023 ambulatory MD Jaja Parry Work Phone: [facility] Work Phone: Start: 06-30-2023 End: 06-30-2023 Patient encounter procedure MD Jaja Parry Work Phone: [facility] Work Phone: Start: 06-17-2023 End: 06-17-2023 ambulatory [facility] Work Phone: Start: 06-17-2023 End: 06-17-2023 Patient encounter procedure [facility] Work Phone: Start: 05-09-2023 End: 05-09-2023 ambulatory [facility] Work Phone: Start: 05-09-2023 End: 05-09-2023 Patient encounter procedure [facility] Work Phone: Start: 07-28-2022 End: 07-28-2022 ambulatory Hudson Gu Other [facility] Other Start: 07-28-2022 Office outpatient vi sit 25 minutes Hudson Gu [facility] Start: 06-23-2022 End: 06-24-[address] JAJA PARRY . Facility:[facility] Start: 06-14-2022 End: 06-14-2022 ambulatory Hudson Gu Other [facility] Other Start: 06-14-2022 Telephone encounter Hudson Gu G [facility] Start: 03-09-2022 End: 04-08-2022 ambulatory HUDSON GU Facility:[facility] Start: 02-22-2022 End: 02-23-2022 ambulatory LILIYA HUTTON Facility:[facility] Start: 12-12-2021 Office outpatient vi sit 15 minutes Liliya Fletcher [facility] Start: 12-12-2021 End: 12-12-2021 ambulatory MD Jaja Parry Work Phone: [facility] Other Start: 12-12-2021 End: 12-12-2021 Patient encounter procedure MD Jaja Parry Work Phone: [facility] Start: 2021 End: 2021 ambulatory Dorys Pughault Other [facility] [employer] Other Start: 2021 Office outpatient ne w 20 minutes Dorys Flannery [facility] Start: 10-07-2021 Encounter for genera l adult medical examination without abnormal findings DR JAJA PARRY . [facility] Start: 10-05-2021 End: 10-06-[address] JAJA PARRY . Facility: Start: 10-05-2021 End: 10-06-2021 Encounter for general adult medical examination without abnormal findings DR JAJA PARRY . Facility: Procedures Date Procedure Procedure Detail Performing Clinician Start: 08-30-2024 X-ray of left knee, two views Jaja Parry MD Work Phone: Start: 08-27-2024 extraction, erupted tooth or exposed root (elevation and/or forceps removal) Dolly Hadley DDS Start: 08-27-2024 oral hygiene instructions Dolly Hadley DDS Start: 07-24-2024 Radiofrequency destr uction of peripheral nerve Jaja Parry MD Work Phone: Start: 10-13-2023 X-ray of left knee MD Dolores Parry Work Phone: Start: 07-12-2023 Radiofrequency destr uction of peripheral nerve MD Jaja Parry Work Phone: Start: 12-12-2021 Radiologic examinati on of knee MD Jaja Parry Work Phone: Plan of Treatment Date Care Activity Detail Author Start: 09-20-2024 End: 09-20-2024 Patient encounter procedure 09/20/2024 10:20 AM EDT Office Visit [facility] [address] [facility] [address] [place] [address] Adrien Jacques DPM [address] [facility] [address] [place] [address] [facility] Start: 08-30-2024 X-ray of left knee, two views XR knee LT 2V [facility] Start: 08-30-2024 XR Knee - left 2 Views [facility] Start: 07-24-2024 [facility] Start: 07-12-2024 End: 07-12-2024 Patient encounter procedure 07/12/2024 11:00 AM EDT Office Visit [facility] [address] [facility] [address] [place] [id number] Adrien Jacques DPM [address] [facility] [address] [place] [address] Arrived [facility] Comment on above: Arrived Start: 10-13-2023 X-ray of left knee XR knee LT 2V [facility] Start: 10-13-2023 XR Knee - left 2 Views [facility] Start: 07-12-2023 [facility] Start: 2003 Screening for malignant neoplasm of breast Mammogram [facility] Start: 10-10-1993 Screening for malignant neoplasm of cervix [facility] Start: 10-10-1984 Screening for malignant neoplasm of cervix Pap Smear [facility] Start: 1965 Screening for malignant neoplasm of colon [facility] Patient Education Know your Meds Felter Non Diagnostic Block [facility] Work Phone: Patient referral [facility] Work Phone: Payers Date Payer Category Payer Medicaid [id number] 2024 Self-pay [id number] 2024 Private Health Insurance [employer] [id number] 2024 Unknown [id number] 2023 Self-pay 2012 Unknown [id number] 1965 Unknown [id number] 1963 Unknown [id number] 1963 Unknown [id number] 593 1963 Unknown [id number] 593 1963 Unknown [id number] 1963 Unknown [id number] 1959 Blue Cross Blue Shield [id number] Unknown [employer]/ [id number] Unknown [id number] Unknown [id number] Unknown [id number] 531 Social History Date Type Detail Facility Start: 01-17-2023 End: 07-12-2024 Sex Assigned At [facility] [employer] Other Start: 1965 Sex Assigned At Female F [facility] Start: 01-17-2023 Tobacco smoking status NHIS Occasional tobacco smoker [facility] History of tobacco use Cigarette Smoker [facility] Start: 01-17-2023 End: 07-12-2024 History of Social function [facility] Start: 01-17-2023 Tobacco Comment 5 or less cigarettes/day [facility] Start: 1965 Sex assigned at Not on file [facility] Start: 07-11-2024 End: 07-24-2024 Tobacco smoking status NHIS Ex-smoker (finding) [facility] Start: 07-11-2024 End: 07-24-2024 Sex Female (finding) [facility] Goals Date Patient Goal Desired Activity /State Clinical Notes 2021 to 07-24-2024 Adrien Jacques, DPM - 07/12/2024 11:00 AM EDT Note Date & Type Note Facility 07-24-2024 Procedure note [facility] enter 07-12-2024 History of Presen t illness Narrative Patient: Susanne Clark : 1965 PCP: Jaja Parry MD SUBJECTIVE This is a 58 y.o. female that presents today with a CC of elongated, thick nails. Pt states nails have been elongated and thick for many years and cause pain with ambulation in shoegear. Pt has tried previous treatment with minimal relief. Pt presents today for nail care and treatment. Patient is DM2 Pt also presents today for secondary complaint of swelling to b/l ankle regions and feet. They state that condition is starting to worsten have tried no treatments for the condition. States swelling worstens with prolonged standing activities. Allergies: Allergies Allergen Reactions Cephalexin Other Reaction(s): back pain Lisinopril Other Reaction(s): Unknown Past Medical History: Past Medical History: Diagnosis Date Fibromyalgia Medications: Current Outpatient Medications: ARIPiprazole (Abilify) 5 MG tablet, Take 5 mg by mouth in the morning., Disp: , Rfl: buPROPion XL (Wellbutrin XL) 300 MG 24 hr tablet, Take 300 mg by mouth in the morning., Disp: , Rfl: Januvia 100 MG tablet, Take 100 mg by mouth in the morning., Disp: , Rfl: Jardiance 10 MG, Take 10 mg by mouth in the morning., Disp: , Rfl: metFORMIN (Glucophage) 500 MG tablet, Take 1,000 mg by mouth in the morning. Take with meals., Disp: , Rfl: Pediatric Multivitamins-Fl (MultiVitamin + Fluoride) 0.25 MG chewable tablet, Multivitamin, Disp: , Rfl: pioglitazone (Actos) 45 MG tablet, Take 45 mg by mouth in the morning., Disp: , Rfl: sertraline (Zoloft) 100 MG tablet, Take 100 mg by mouth 1 (one) time each day at the same time, Disp: , Rfl: simvastatin (Zocor) 20 MG tablet, Take 20 mg by mouth at bedtime, Disp: , Rfl: Tart Thapa 1200 MG capsule, Tart Thapa, Disp: , Rfl: Social History: Social History Socioeconomic History Marital status: Spouse name: Not on file Number of children: Not on file Years of education: Not on file Highest education level: Not on file Occupational History Not on file Tobacco Use Smoking status: Some Days Types: Cigarettes Smokeless tobacco: Not on file Tobacco comments: 5 or less cigarettes/day Substance and Sexual Activity Alcohol use: Not on file Drug use: Not on file Sexual activity: Not on file Other Topics Concern Not on file Social History Narrative Not on file Social Drivers of Health Financial Resource Strain: Not on file Food Insecurity: Not on file Transportation Needs: Not on file Physical Activity: Not on file Stress: Not on file Social Connections: Not on file Intimate Partner Violence: Not on file Housing Stability: Not on file ROS: Gastrointestinal: denies abdominal pain, ulcers, or changes in appetite or bowel habits Musculoskeletal: Positive generalized arthritis to joints and denies loss of strength. Positive history of fibromyalgia Cardiovascular: denies CP, palpitations, irregular rhythms OBJECTIVE LE EXAM: DERM: Elongated thick yellow crumbly nails digits 1 through 10. Negative hair growth with thin shiny atrophic skin bilaterally +1 pitting edema to bilateral ankles VASC: positive DP and negative PT pedal pulses NEURO: 5.07 [facility] monofilament test intact to digits and forefoot bilaterally 125Hz tuning fork diminished to 1st MPJ bilaterally ORTHO: Positive pain on palpation to toenails of the left 1,2,3,4,5 toes and right 1,2,3,4,5 toes ASSESSMENT 1. Venous insufficiency 2. Diabetes mellitus due to underlying condition with diabetic polyneuropathy, without long-term current use of insulin ([facility]) 3. Pain due to onychomycosis of toenails of both feet PLAN Discussed proper foot care with patient today. Debride nails in length and thickness digits 1 through 10 Patient educated today on proper diabetic foot care including monitoring feet daily for any signs of infection openings in the skin or irregularities to both feet. Patient had a diabetic neurological exam today to both their feet and discussed proper shoe gear. Visit spent with patient education on condition and treatment of condition. Pt to continue with elevation of feet while resting or NWB. Discussed compression hose and the use of stockings for edema. Discussed condition in detail. Recommendation for yesn-wun-bsjuvdw compression stockings at this time and may consider prescription stockings in the future. Adrien Jacques DPM documented in this encounter [facility] 07-11-2024 Evaluation note Diagnosis Onset Date Resolution Chronic pain acute July 11 9:53am Fibromyalgia acute July 11 9:53am Osteoarthritis of left knee acute July 11, 2024 9:53am [facility] Work Phone: 1(805) 157-992405-28-2025 Evaluation note* Diagnosis Onset Date Resolution Status Admit Date Chronic pain acute July 11 9:53am Fibromyalgia acute July 11 9:53am Osteoarthritis of left knee acute July 11, 2024 9:53am Chronic pain acute August 13, 2 025 7:58am Fibromyalgia acute August 13, 2 025 7:58am Osteoarthritis of left knee acute August 13, 2024 7:58am [facility] Work Phone: 1(139) 792-613905-28-2025 Evaluation note* Diagnosis Onset Date Resolution Status Admit Date Chronic pain acute July 11 9:53am Fibromyalgia acute July 11 9:53am Osteoarthritis of left knee acute July 11, 2024 9:53am Chronic pain acute August 13, 2 025 7:58am Fibromyalgia acute August 13 2 025 7:58am Osteoarthritis of left knee acute August 13, 2024 7:58am Chronic pain acute August 30, 2 025 9:02am Fibromyalgia acute August 30 2 025 9:02am Osteoarthritis of left knee acute August 30, 2024 9:02am [facility] Work Phone: 1(808) 213-176405-28-2024 [facility]* Author [facility] Authored May 09, 2023 9:1 6am We performed a 4/1cc Marcain e / Kenalog cortisone injection into the knee joint under sterile technique. Patient tolerated the injection well without adverse reaction. Patient can follow up as needed. Note scribed by ESEQUIEL Valle, reviewed and amended by myself Hudson Gu D.O. [facility] Work Phone: 1([phone]) 994-161806-14-2023 Evaluation note* Encounter Date Diagnosis Assessment Notes [...] tolerated the injection well without adverse reaction. [facility] Other 05-01-2023 Evaluation note* Encounter Date Diagnosis Assessment Notes Treatment Notes Treatment Clinical Notes June, Acute meniscal tear of left knee, initial encounter (ICD-10 - S83.207A) [facility] Other 10-29-2022 Evaluation note* Encounter Date Diagnosis [...] Nov, Other Contusion mater ial was printed [facility] Other 08-28-2022 Evaluation note* Encounter Date Diagnosis [...] COVID POSITIVE education handout discharge instructions. given. [facility] Other Evaluation noteNo assessment information available [facility] Work Phone: Evaluation note* Author Mare [facility] Authored May 09, 2023 9:1 6am We performed a 4/1cc Marcain e / Kenalog cortisone injection into the knee joint under sterile technique. Patient tolerated the injection well without adverse reaction. Patient can follow up as needed. Note scribed by ESEQUIEL Valle, reviewed and amended by myself Hudson Gu D.O. [facility] Work Phone: Evaluation note* Diagnosis Onset Date Resolution Status Chronic pain acute Knee pain acute Osteoarthritis of left knee acute Chronic pain acute Contusion of left knee acute Knee pain acute Osteoarthritis of left knee acute [facility] Work Phone: Evaluation note* Diagnosis Venous insufficiency- Primary Unspecified venous (peripheral) insufficiency Diabetes mellitus due to underlying condition with diabetic polyneuropathy, without long-term current use of insulin ([facility]) Pain due to onychomycosis of toenails of both feet [facility] Diagnosis Onset Date Resolution Status Admit Date Chronic pain acute July 11 9:53am Fibromyalgia acute July 11 9:53am Osteoarthritis of left knee acute July 11, 2024 9:53am [facility] Work Phone: History general Narrative - Reported* Type Description Date Medical History diabetes Surgical History c-sections - 2 Surgical History oophorectomy Surgical History hysterectomy [facility] [employer] Other History general Narrative - Reported* Type Description Date Medical History diabetes Medical History high cholesterol Surgical History c-sections - 2 Surgical History oophorectomy Surgical History hysterectomy [facility] Other Chief Complaint and Reason for Visit [...] knee Knee pain Osteoarthritis of left knee Chief Complaint Admit Date recheck July 11, 2024 9:53a m Reason for Visit Admit Date Chronic pain July 11, 2024 9:53a m Fibromyalgia July 11, 2024 9:53a m Osteoarthritis of left knee July 11 9:53am Chief Complaint Admit Date recheck July 11, 2024 9:53a m KJNEE PAIN July 24, 2024 8:58 am KJNEE PAIN July 24, 2024 10:0 8am Chief Complaint Admit Date recheck July 11, 2024 9:53a m KJNEE PAIN July 24, 2024 8:58 am KJNEE PAIN July 24, 2024 10:0 8am F/U LT GENICULAR RFA August 13, 2024 7:5 8am Reason for Visit Admit Date Chronic pain July 11, 2024 9:53a m Fibromyalgia July 11, 2024 9:53a m Osteoarthritis of left knee July 11 9:53am Chronic pain August 13, 2024 7:58 am Fibromyalgia August 13, 2024 7:58 am Osteoarthritis of left knee August 13, 025 7:58am Chief Complaint Admit Date recheck July 11, 2024 9:53a m KJNEE PAIN July 24, 2024 8:58 am KJNEE PAIN July 24, 2024 10:0 8am F/U LT GENICULAR RFA August 13, 2024 7:5 8am RECHECK DISCUSS INJECTION OPTIONS August 142024 9:02am M17.12 - Unilateral primary osteoarthrit is, left k August 30, 2024 9:24am Reason for Visit Admit Date Chronic pain July 11, 2024 9:53a m Fibromyalgia July 11, 2024 9:53a m Osteoarthritis of left knee July 11 9:53am Chronic pain August 13, 2024 7:58 am Fibromyalgia August 13, 2024 7:58 am Osteoarthritis of left knee August 13 7:58am Chronic pain August 30, 2024 9:02 am Fibromyalgia August 30, 2024 9:02 am Osteoarthritis of left knee August 30 9:02am Advance Directives No Advanced Directives Records Found [...] FOR VISIT (unrecogniz ed section and content) Reason Comments DM Foot Care Dm nail care Care Teams (unrecognized sec tion and content) Team Status: Inactive Member Role Status Natacha Parry MD Primary Care Provider Active HAKEEM Hogue Attending Provider Active Team Status: Active Member Role Status Natacha Parry MD Primary Care Provider Active Team [...] Provider Active Sta rt: October 13, 2023 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 Specialty Start Date End Date Jaja Parry MD [address] [place] [address] PCP - General Family Medicine 02/02/23 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 Specialty Start Date End Date Jaja Parry MD [address] [place] [address] PCP - General Family Medicine 02/02/23 Team Status: Inactive Member Role Status Natacha Parry MD Primary Care Provider Active Start: July 11, 2024 End: July 11, 2024 Gregg Nassar MD Attending Provider Active Sta rt: July 11, 2024 End: July 11, 2024 Team Status: Inactive Member Role Status Natacha Parry MD Primary Care Provider Active Start: July 24, 2024 End: July 24, 2024 Gregg Nassar MD Attending Provider Active Sta rt: July 24, 2024 End: July 24, 2024 Team Status: Active Member Role Status Natacha Parry MD Primary Care Provider Active Start: July 24, 2024 Gregg Nassar MD Attending Provider, Other Provider Active Start: July 24, 2024 Team Status: Active Member Role Status Dates Jaja Parry MD Primary Care Provider Active Start: July 24, 2024 Gregg Nassar MD Attending Provider Active Sta rt: July 24, 2024 Gregg Nassar MD Other Provider Active Start: July 24, 2024 Team Status: Inactive Member Role Status Dates Jaja Parry MD Primary Care Provider Active Start: August 13, 2024 End: August 13, 2024 Gregg Nassar MD Attending Provider Active Sta rt: August 13, 2024 End: August 13, 2024 Team Status: Inactive Member Role Status Dates Jaja Parry MD Primary Care Provider Active Start: August 30, 2024 End: August 30, 2024 Gregg Nassar MD Attending Provider Active Sta rt: August 30, 2024 End: August 30, 2024 Team Status: Active Member Role Status Dates Jaja Parry MD Primary Care Provider Active Start: August 30, 2024 Gregg Nassar MD Attending Provider Active Sta rt: August 30, 2024 Goals (unrecognized section and content) Goals may be documented in a n alternate section INFORMATION SOURCE (unrecogn ized section and content) DATE CREATED AUTHOR 06/27/2022 [facility] p[facility] DATE CREATED AUTHOR AUTHOR'S ORGANIZ ATION 07/14/2024 [facility] EPIC DATE CREATED AUTHOR AUTHOR'S ORGANIZ ATION 09/02/2024 [facility] DATE CREATED AUTHOR AUTHOR'S ORGANIZ ATION 09/03/2024 [facility] DEPARTMENT FOR RECORDS PERTAINING TO PATIENTS WHO ARE [...] BE BASED ON THE PRIMARY CLINICAL RECORDS. [facility]. provides no warranty or guarantee of the accuracy or completeness of information in this document.
--- NOTE | 2024-09-05 08:23 | ECG_ITS ---
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 Measurements Intervals [place] Rate: 103 P: 61 MO: 142 QRS: 41 QRSD: 90 T: 37 QT: 346 QTc: 406 Interpretive Statements 1120 Sinus tachycardia Otherwise normal ECG Compared to ECG 03/22/2024 15:29:49 No significant changes Electronically Signed On 09-07-2024 6:37:59 EDT by DIANA BARAJAS M.D.
[2024-09-05] MEDS: 0.9 % SODIUM CHLORIDE 1,000 ML 1000 ML IV (08:30)
[2024-09-05] MEDS: FAMOTIDINE/PF 20 MG/2 ML VIAL IV (08:30)
--- NOTE | 2024-09-05 08:30 | ED.NAVMDI1 ---
HPI - Nausea/Vomiting/Diarrhea General Chief complaint: Nausea/Vomiting/Diarrhea Stated complaint: CHILLS VOMITING Time Seen by Provider: 09/05/24 08:04 Source: patient Mode of arrival: walk-in History of Present Illness HPI Narrative: The patient is 58 years old female is coming to us with a few weeks history of chills and vomiting that got worse over the last few days, patient is not endorsing any specific chest pain or shortness of breath and she does not have any abdominal pain at the moment although sometimes she have some cramping Patient is complaining mostly of swelling and she has been taking her insulin with no delay The patient also has been having some burning with urination and frequency Related Data Home Medications ?Medication ?Instructions ?Recorded ?Confirmed blood sugar diagnostic (OneTouch 01/13/23 01/13/23 Verio test strips) flash glucose scanning reader 01/13/23 01/13/23 (SAFE ID SolutionsStyle Kirsten 2 Frost) flash glucose sensor (SAFE ID SolutionsStyle 01/13/23 01/13/23 Kirsten 2 Sensor kit) simvastatin 20 mg tablet 20 mg PO DAILY 01/13/23 09/05/24 insulin glargine 100 unit/mL (3 40 unit subcut DAILY 03/21/24 09/05/24 mL) subcutaneous pen ([employer] Pvtaglar KwikPen U-100 Insulin) metoprolol tartrate 50 mg tablet 50 mg PO Q12H 03/22/24 09/05/24 triamcinolone acetonide 0.1 % 1 applic topical TID 04/12/24 06/16/24 topical cream acetaminophen 300 mg-codeine 30 mg tab 09/05/24 tablet Previous Rx's ?Medication ?Instructions ?Recorded magnesium oxide 400 mg PO DAILY #5 caps 09/05/24 nitrofurantoin 100 mg PO BID 5 days #10 caps 09/05/24 monohydrate/macrocrystals 100 mg capsule (Macrobid) ondansetron 4 mg disintegrating 4 mg PO Q8H PRN nausea and 09/05/24 tablet vomiting 48 hours #10 tabs Allergies Allergy/AdvReac Type Severity Reaction Status Date / Time cephalexin (From Keflex) Allergy Intermediate Unknown Verified 09/05/24 07:58 lisinopril Allergy Intermediate Unknown Verified 09/05/24 07:58 Review of Systems ROS Status of ROS 10 or more systems reviewed and unremarkable except as noted in history and below [facility] Medical History (Updated 09/05/24 @ 11:00 by Vielka Galeano MD) Abdominal pain ?R10.9 - Unspecified abdominal pain (ICD-10) Surgical History (Updated 03/22/24 @ 17:53 by Mary Woo) H/O oophorectomy H/O: hysterectomy ?Z90.710 - Acquired absence of both cervix and uterus (ICD-10) Social History Highest level of school completed/degree received: some college, no degree Little interest or pleasure in doing things: not at all Feeling down, depressed, or hopeless: not at all Exam Narrative Exam Narrative: Nurses notes and vital signs reviewed and patient is not hypoxic. General: Well-appearing and in no apparent distress. Skin: Warm, dry, no pallor noted. No rash. Head: Normocephalic, atraumatic. Neck: Supple, non-tender. Cardiovascular: Regular Rate and Rhythm without murmur, gallop or rub. Respiratory: No accessory muscle use or respiratory distress. Lungs are clear to auscultation, no wheezing, rales or rhonchi Chest Wall: no tenderness Back: No midline thoracic or lumbar vertebral tenderness. No CVA tenderness Musculoskeletal: normal ROM, no calf or popliteal tenderness, no lower extremity edema/swelling GI: Abdomen is soft, non-distended. Normal bowel sounds. No masses appreciated. There is some superficial tenderness on palpation of the mid abdomen toward the right mid abdomen as well that is not there on superficial palpation Neurological: A&O x4. No cranial nerve dysfunction observed. Constitutional Vital Signs, click to edit/add: Last Vital Signs Temp 98.4 F 09/05/24 07:58 Pulse 99 H 09/05/24 11:01 Resp 12 09/05/24 11:01 BP 115/75 09/05/24 11:01 Pulse Ox 98 09/05/24 11:00 O2 Del Method Room Air 09/05/24 07:58 Course Vital Signs Vital signs: Vital Signs Temperature 98.4 F 09/05/24 07:58 Pulse Rate 99 H 09/05/24 07:58 Respiratory Rate 18 09/05/24 07:58 Blood Pressure 172/76 H 09/05/24 07:58 Pulse Oximetry 99 09/05/24 07:58 Oxygen Delivery Method Room Air 09/05/24 07:58 Temperature 98.4 F 09/05/24 07:58 Pulse Rate 99 H 09/05/24 11:01 Respiratory Rate 12 09/05/24 11:01 Blood Pressure 115/75 09/05/24 11:01 Pulse Oximetry 98 09/05/24 11:00 Oxygen Delivery Method Room Air 09/05/24 07:58 MDM - Nausea/Vomiting/Diarrhea MDM Narrative Medical decision making narrative: The patient EKG showing sinus rhythm with a heart rate of [address] elevation or depression The patient CBC showed no leukocytosis Urinalysis positive for UTI CT abdomen pelvis showed no acute pathology The patient chemistry shows chronic kidney disease with some elevated blood sugar of 360 and an anion gap of 14 The patient was started on Zofran in addition to 1 L fluid and magnesium because her magnesium was found to be 1.3 Patient was feeling much better after initial treatment she was provided with Zofran to go home with and she was tolerating p.o. intake here in the ER She was instructed about the importance of hydration provide magnesium supplement here in the ER as well as when she was discharged The patient also provided with Macrobid for UTI Patient instructed about the importance of hydration and monitoring her symptoms she is to come back to the ER in case of any new symptoms or concerns The patient is to follow up with primary care physician in next 2-3 days or to return to the emergency department should any of the signs or symptoms worsen or new symptoms develop. The patient agrees with the following Diagnosis and Treatment plan and the patient will be discharged home. Lab Data Labs: Lab Results 09/05/24 09/05/24 09/05/24 Range/Units 08:15 08:36 11:01 WBC 7.7 (4.0-11.0) 10^3/uL RBC 4.27 (4.20-5.40) 10^6/uL Hgb 13.3 (12.0-16.0) g/dL Hct 36.6 (36.0-48.0) % MCV 85.7 (81.0-99.0) fL MCH 31.1 (26.7-34.0) pg MCHC 36.3 H (29.9-35.2) g/dL RDW 12.3 (11.0-15.0) % Plt Count 190 (150-450) 10^3/uL MPV 10.8 (9.5-13.5) fL Neut % (Auto) 85.2 H (43.0-75.0) % Lymph % (Auto) 4.3 L (20.5-60.0) % [place] % (Auto) 9.8 (1.7-12.0) % Eos % (Auto) 0.1 L (0.9-7.0) % Baso % (Auto) 0.3 (0.2-2.0) % Neut # (Auto) 6.6 H (1.4-6.5) 10^3/uL Lymph # (Auto) 0.3 L (1.2-3.8) 10^3/uL [place] # (Auto) 0.8 (0.3-0.8) 10^3/uL Eos # (Auto) 0.0 (0.0-0.7) 10^3/uL Baso # (Auto) 0.0 (0.0-0.1) 10^3/uL Abs Immat Gran (auto) 0.02 (0.00-0.03) 10^3/uL Imm/Tot Granulo (auto) 0.3 (0.0-0.5) % Sodium 135 L (136-145) mmol/L Potassium 3.7 (3.5-5.1) mmol/L Chloride 101 (98-107) mmol/L Carbon Dioxide 19.7 L (21.0-32.0) mmol/L Anion Gap 18.0 BUN 26.0 H (7.0-18.0) mg/dL Creatinine 1.28 H (0.55-1.02) mg/dL Est GFR ( Amer) 52 L (>=60 mL/min/1.73m^2) Est GFR (Non-Af Amer) 43 L (>=60 mL/min/1.73m^2) BUN/Creatinine Ratio 20.3 Glucose 360 H (74-106) mg/dL Lactate 1.5 (0.4-2.0) mmol/L Calcium 8.9 (8.5-10.1) mg/dL Magnesium 1.3 L (1.8-2.4) mg/dL Total Bilirubin 0.9 (0.2-1.0) mg/dL AST 36 (15-37) U/L ALT 48 (14-59) U/L Alkaline Phosphatase 101 (46-116) U/L Troponin I High Sens <4.0 L (4.0-51.3) pg/mL Total Protein 7.1 (6.4-8.2) g/dL Albumin 3.4 (3.4-5.0) g/dL Globulin 3.7 g/dL Albumin/Globulin Ratio 0.9 Lipase 23.0 (16.0-77.0) U/L Urine Color Lt. yellow (YELLOW) Urine Clarity Cloudy A (CLEAR) Urine pH 6.0 (5.0-9.0) Ur Specific [place] 1.020 (1.005-1.025) Urine Protein 100 A (NEG/TRACE) mg/dL Urine Glucose (UA) 100 A (NEGATIVE) mg/dL Urine Ketones Negative (NEGATIVE) mg/dL Urine Occult Blood Large A (NEGATIVE) Urine Nitrite Negative (NEGATIVE) Urine Bilirubin Negative (NEGATIVE) Urine Urobilinogen 1.0 (0.2-1.0) EU/dL Ur Leukocyte Esterase Large A (NEGATIVE) Urine RBC 10-20 A (0-2) #/HPF Urine WBC >100 A (NONE SEEN) #/HPF Ur Squamous Epith Cells Rare (NONE/RARE) #/LPF Urine Crystals None seen (None Seen) #/HPF Urine Bacteria Large A (NONE SEEN) #/HPF Urine Casts None seen (NONE SEEN) #/LPF Urine Mucus None seen (NONE SEEN) Ur Culture Indicated? Yes-[facility] POC Glucose 298 H (74-106) mg/dL Discharge Plan Discharge Chief Complaint: Nausea/Vomiting/Diarrhea Clinical Impression: Gastroenteritis, Hyperglycemia, Dehydration, UTI (urinary tract infection), Hypomagnesemia Patient Disposition: Home, Self-Care Time of Disposition Decision: 10:59 Prescriptions / Home Meds: New ondansetron 4 mg tablet,disintegrating 4 mg PO Q8H PRN (Reason: nausea and vomiting) 2 Days Qty: 10 0RF nitrofurantoin monohyd/m-cryst [Macrobid] 100 mg capsule 100 mg PO BID 5 Days Qty: 10 0RF Rx Instructions: must administer with a meal/food magnesium oxide 400 mg magnesium capsule 400 mg PO DAILY Qty: 5 0RF No Action (DME) OneTouch Verio test strips Strip MISCELLANEOUS (DME) FreeStyle Kirsten 2 Sensor Kit MISCELLANEOUS (DME) FreeStyle Kirsten 2 Frost Misc MISCELLANEOUS simvastatin 20 mg tablet 20 mg PO DAILY insulin glargine [Basaglar KwikPen U-100 Insulin] 100 unit/mL (3 mL) insulin pen 40 unit subcut DAILY metoprolol tartrate 50 mg tablet 50 mg PO Q12H triamcinolone acetonide 0.1 % cream 1 applic TOPICAL TID acetaminophen-codeine 300-30 mg tablet Print Language: Cook Islander Instructions: Dehydration (ED), Urinary Tract Infection in Women (DC), Gastroenteritis (ED), Acute Nausea and Vomiting (DC), Hypomagnesemia (ED) Referrals: Florencio Parry MD [Primary Care Provider, Family Practice] - 1 week Discharge Date/Time: 09/05/24 11:15
[2024-09-05 08:49] LABS: Hematocrit 36.6 % (36.0-48.0); Hemoglobin 13.3 g/dL (12.0-16.0); Immature Granulocytes Abs Auto 0.02 10^3/uL (0.00-0.03); Immature Granulocytes Pct Auto 0.3 % (0.0-0.5); Lymphocytes Absolute Auto 0.3 10^3/uL (1.2-3.8); Mean Corpuscular HGB Conc 36.3 g/dL (29.9-35.2); Mean Corpuscular Hemoglobin 31.1 pg (26.7-34.0); Mean Corpuscular Volume 85.7 fL (81.0-99.0); Platelet Count 190 10^3/uL (150-450); Red Blood Count 4.27 10^6/uL (4.20-5.40); White Blood Count 7.7 10^3/uL (4.0-11.0)
[2024-09-05 08:50] LABS: Glucose Urine UA 100 mg/dL (NEGATIVE)
[2024-09-05 09:01] LABS: Alanine Aminotransferase 48 U/L (14-59); Albumin Globulin Ratio 0.9; Albumin Level 3.4 g/dL (3.4-5.0); Alkaline Phosphatase 101 U/L (46-116); Anion Gap 18.0; Aspartate Amino Transferase 36 U/L (15-37); Blood Urea Nitrogen 26.0 mg/dL (7.0-18.0); Calcium 8.9 mg/dL (8.5-10.1); Carbon Dioxide 19.7 mmol/L (21.0-32.0); Chloride 101 mmol/L (98-107); Estimated GFR (African America 52 (>=60 mL/min/1.73m^2); Estimated GFR (Non-African Ame 43 (>=60 mL/min/1.73m^2); Globulin 3.7 g/dL; Glucose 360 mg/dL (74-106); Potassium 3.7 mmol/L (3.5-5.1); Sodium 135 mmol/L (136-145); Total Protein 7.1 g/dL (6.4-8.2)
[2024-09-05 09:04] LABS: Lipase 23.0 U/L (16.0-77.0); Magnesium 1.3 mg/dL (1.8-2.4)
[2024-09-05 09:05] LABS: Lactate/Lactic Acid 1.5 mmol/L (0.4-2.0)
--- NOTE | 2024-09-05 09:09 | CT_ITS ---
The [address] [address] Patient Name: RJ PINZON MRN: [id number] date: 1965 Sex: F Assigned Patient Location: ER Current Patient Location: ER Accession/Order Number: [id number] Exam Date: 09/05/2024 10:22 Report Date: 09/05/2024 10:25 At the request of: AYALA CURRAN MD Procedure: CT abdomen pelvis wo con CT ABDOMEN AND PELVIS WITHOUT INTRAVENOUS CONTRAST: CLINICAL HISTORY: Acute nausea vomiting chills diarrhea for 2 weeks. COMPARISON: None TECHNIQUE: Spiral images were obtained through the abdomen and pelvis without intravenous contrast. This CT exam was performed using one or more following dose reduction techniques: Automated exposure control, adjustment of the mA and/or kV according to patient size, or use of iterative reconstruction technique. FINDINGS: Lung Bases: [Bibasilar scarring] Organs:Suboptimal evaluation due to lack of the contrast. Liver gallbladder pancreas spleen and adrenal glands all appear unremarkable. Kidneys demonstrate no stone or hydronephrosis. Abdominal aorta appears normal in caliber.[ GI: Stomach is grossly unremarkable. Small bowel appears nondilated. Appendix is normal. No acute colonic abnormality.[ Pelvis:[Urinary bladder and prostate gland appear unremarkable.] Peritoneum/Retroperitoneum:No free air free fluid or lymphadenopathy.[ Abd wall/Bones:Abdominal wall demonstrate no acute findings. Osseous structures demonstrate degenerative change.[ CT/CT abdomen pelvis wo con IMPRESSION: No acute process. Impression dictated by: Freedom Foster Jr., DXiomyOXiomy 09/05/2024 10:25 AM Dictation Location: [employer] Electronically authenticated by: [id number] Y Date: 09/05/2024 10:25
[2024-09-05 09:13] LABS: Cast Seen? NONE SEEN #/LPF (NONE SEEN); Crystals Seen? None Seen #/HPF (None Seen); Urine Culture Indicated YES-FRMC
[2024-09-05] MEDS: MAGNESIUM SULFATE IN WATER 2 GM/50 ML PREMIX IV (09:21)
[2024-09-05] MEDS: NITROFURANTOIN MONOHYD/MAC-CRST 100 MG CAPSULE PO (10:54)
== END 2024-09-05 11:15 | disposition home or self-care (01) ==
PROVIDERS: Emergency Provider Emergency Medicine; PCP Family Medicine
DX: E86.0 Dehydration (principal); R73.9 Hyperglycemia, unspecified; K52.9 Noninfective gastroenteritis and colitis, unspecified; N39.0 Urinary tract infection, site not specified; E83.42 Hypomagnesemia; Z90.710 Acquired absence of both cervix and uterus
CPT/HCPCS: 36415; 74176; 80053; 81001; 83605; 83690; 83735; 84484; 85025; 87086; 87088; 87186; 93005; 96361; 96365; 96375; 99285; J2405; J3475; J3490

== ENCOUNTER 2024-09-06 16:19 | Outpatient (RCR) | payer MEDICAID, SELFPAY ==
--- OUTSIDE RECORDS SUMMARY | 2024-08-31 08:11 | XMS_ITS | Continuity of Care Document ---
Author Organization [facility] Address [address] [place] [address] Phone Care Team Providers Care Panel Flow Machine Operator Name Role Phone Leonie GRIJALVA, Dolly Unavailable [...] 025 Bitewings Four Films Intraoral-periapical 1st Film Yfzdepjzj-afegtcpfdd-nuoi Additional Aug Ckyysituv-kuxfhnxqqz-lcbt Additional Aug Comp Oral Eval New/estab Patient 2024 Advance Directives Directive Yes / No Effective Date File Name No Information Encounters Encounter Description Practice Location Reason(s) For Visit Diagnoses Date Provider Providers Copied on Encounter [facility], [address] [place] [address], [id number], tel:[phone] Dental Clinic Encounter for screening [facility] [email or web address] . tel:[phone] [facility], [address] [place] [address], [id number], [place] tel:[phone] Dental Clinic ext (chief complaint) Encounter for screening for dental disorders [facility] [email or web address]. . tel:[phone] [facility], [address] [place] [address], [id number], tel:[phone] Dental Clinic DN (chief complaint) Body mass index [BMI] 36.0-36.9, adultEncounter for screening for dental disorders [facility] [email or web address]. . tel:[phone] Family History Family Member Type Diagnosis Age At Onset No Information Payers Payer name Insurance type Covered alliance party ID Authoriza tion(s) No Information Social History Type Description Quantity Date Captured Comments Sex Female Smoking Status No Information Chief Complaint And Reason For Visit No Information Reason For Referral Reason For Referral No Information Plan Of Treatment Date Type Action Status Goal Hepatitis C scre ening. Due on due Goal Colonoscopy. Due on due Goal FIT. Due on due Goal FIT-DNA. Due on due Goal Lipid panel. Due on due Goal Tdap Vaccine. Due on 2024 due Goal Depression scree jaskaran. Due on due Goal Influenza vaccine. Due on due Goal Unhealthy drug u se screening. Due on due Goal Zoster vaccine ( ). Due on due Goal CT-Colonography. Due on due Goal FOBT. Due on due Goal HPV. Due on due Goal PRAPARE ASSESSMENT. Due on due Goal Mammogram. Due on due Goal Tdap. Due on due Goal Tdap. Due on due Goal PRAPARE [...] Depression scree jaskaran. Due on due Goal Hep A. Due on du e Goal Colonoscopy. Due on 025 due Goal Zoster vaccine ( 1st). Due on due Goal Hepatitis C scre ening. Due on due Goal Unhealthy drug u se screening. Due on due Referral Ordered: Florencio Parry MD timeframe: 6 Months. (related to Body mass index [BMI] 36.0-36.9, adult) ordered Appointment Susanne Clark BOOKED Nutrition Recommendation Oral nutritional support completed History Of Present Illness Encounter Date Complaint History Of Prese nt Illness ext ext DN DN Functional Status Date Functional Assessmen t No Information Instructions Date Instruction Additional Infor bession Giving encouragement to exercise Related to Body mass index [BMI] 36.0-36.9, adult Assessments Type Assessment Date No Information Patient Care Teams Name Effective Dates (start - stop) Status Members No Information
--- OUTSIDE RECORDS SUMMARY | 2024-09-05 09:04 | XMS_ITS ---
Author Organization The [facility] in [place] Address [address] [place] [address] Care Team Providers Care Tap And Die Maker Technician Name Role Phone Quincy Parry Primary Care Provider REASON FOR VISIT ER update Encounters Encounter Location Date Provider Diagnosis [facility] ([place], [place]) [address] [place] [address] 09/05/2024 Quincy Parry Diabetes type 2, controlled E11.9 Assessments Encounter Date Diagnosis (ICD Code) Assessment Notes Treatment Notes Treatment Clinical Notes Section Notes 09/05/2024 Diabetes type 2, controlled (ICD-10 - E11.9) Plan Of Treatment Pending Test Test Name Order Date BNP 09/05/2024 Progress Notes * Susanne PINZON GDOB:[birth year] (58 yo F)Acc No.[id number]:09/05/2024 Patient: Cm Susanne FRASER Ashkan :1965 A ge:58 Y S ex:Female Address:[address] [place] [address] [address], [place], [address] Subjective: * Chief Complaints: * E R update * Medical History: * Surgical History: * Hospitalization/Major Diagno stic Procedure: * Medications: Objective: * Vitals: * Physical Examination: Assessment: * Assessment: 1. D iabetes type 2, controlled - E11.9 (Primary) Plan: * Treatment: * Procedure Codes: * true * Date: Generated for Printi ng/Faxing/eTransmitting on: 0 09/06/2024 04:25 PM EDT
--- OUTSIDE RECORDS SUMMARY | 2024-09-05 16:28 | XMS_ITS ---
Author Organization The [facility] in [place] Address [address] [place] [address] Care Team Providers Care Wet Finisher Wool Name Role Phone Quincy Parry Primary Care Provider [phone] REASON FOR VISIT ER F/u Encounters Encounter Location Date Provider Diagnosis [facility] [address] [place] [address] 09/05/2024 Quincy Parry Plan Of Treatment No Information Progress Notes * Susanne PINZON GDOB:[birth year] (58 yo F)Acc No.[id number]:09/05/2024 Patient: Cm FRASERSusanne Ashkan :1965 A ge:58 Y S ex:Female Address:[address] [place] [address] [address], [place], [address] * true * Date: Generated for Emelinai grace/Faalessandrog/eTransmitting on: 0 09/06/2024 04:26 PM EDT
--- OUTSIDE RECORDS SUMMARY | 2024-09-05 20:31 | XMS_ITS | Continuity of Care Document ---
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 Name Role Phone Florencio Parry MD Primary Care Provider Gregg Nassar MD Attending Provider [phone] Gregg Nassar MD Other Provider [phone] Vielka Galeano MD Attending Provider [phone] Care Teams Visit Care Team Team Status: Inactive Member Role Status Dates Florencio Parry MD Primary Care Provider Active Start: July 11, 2024 End: July 11, 2024 Gregg Nassar MD Attending Provider Active Sta rt: July 11, 2024 End: July 11, 2024 Visit Care Team Team Status: Inactive Member Role Status Dates Florencio Parry MD Primary Care Provider Active Start: July 24, 2024 End: July 24, 2024 Gregg Nassar MD Attending Provider Active Sta rt: July 24, 2024 End: July 24, 2024 Visit Care Team Team Status: Active Member Role Status Dates Florencio Parry MD Primary Care Provider Active Start: July 24, 2024 Gregg Nassar MD Attending Provider Active Sta rt: July 24, 2024 Gregg Nassar MD Other Provider Active Start: July 24, 2024 Visit Care Team Team Status: Inactive Member Role Status Dates Florencio Parry MD Primary Care Provider Active Start: August 13, 2024 End: August 13, 2024 Gregg Nassar MD Attending Provider Active Sta rt: August 13, 2024 End: August 13, 2024 Visit Care Team Team Status: Inactive Member Role Status Dates Florencio Parry MD Primary Care Provider Active Start: August 30, 2024 End: August 30, 2024 Gregg Nassar MD Attending Provider Active Sta rt: August 30, 2024 End: August 30, 2024 Visit Care Team Team Status: Inactive Member Role Status Dates Florencio Parry MD Primary Care Provider Active Start: August 30, 2024 End: August 30, 2024 Gregg Nassar MD Attending Provider Active Sta rt: August 30, 2024 End: August 30, 2024 Patient Care Team Team Status: Inactive Member Role Status Dates Vielka Galeano MD Attending Provider Active Sta rt: September 05, 2024 End: September 05, 2024 Chief Complaint and Reason for Visit Chief Complaint Admit Date recheck July 11, 2024 9:53a m KJNEE PAIN July 24, 2024 8:58 am KJNEE PAIN July 24, 2024 10:0 8am F/U LT GENICULAR RFA August 13, 2024 7:5 8am RECHECK DISCUSS INJECTION OPTIONS August 142024 9:02am M17.12 - Unilateral primary osteoarthrit is, left k August 30, 2024 9:24am Unknown September 05, 2024 8:15 am Reason for Visit Admit Date Chronic pain July 11, 2024 9:53a m Fibromyalgia July 11, 2024 9:53a m Osteoarthritis of left knee July 11 9:53am Chronic pain August 13, 2024 7:58 am Fibromyalgia August 13, 2024 7:58 am Osteoarthritis of left knee August 13 025 7:58am Chronic pain August 30, 2024 9:02 am Fibromyalgia August 30, 2024 9:02 am Osteoarthritis of left knee August 30 025 9:02am Reason for Referral Referring Provider Name Referring Provider Address Referring Provider Phone Referral Date Requested Appointment Date Referral Reason Gregg Nassar [address] [facility] [address] Work Phone: Call Dr. Horne office to schedule a follow up appointment if you do not already have one scheduled Allergies, Adverse Reactions, Alerts Allergen Type Severity Reaction Last Updated Verified Status cephalexin Allergy Unknown Unknown Reaction July 24, 2024 9:22 am Yes Active lisinopril Allergy Unknown Rash July 24, 2024 9:22am Yes Active Social History Smoking Status Status Start Date End Date Date of Observa tion Ex-smoker (finding) July 9:27am Observation Status Observation Response Date of Response Legal Sex Female (finding) Sex Assigned At Female September, 1965 Family History Relationship Condition Age at Onset Recorded Date/T maddie father Heart disease Unknown Unknown Diabetes mellitus Unknown Hypertension Unknown mother Malignant neoplasm Unknown History of stroke Unknown Problems Active Problems Medical Problem Onset Date Status Chronic pain Unknown Active Acute meniscal tear of left knee Unknown Active Fibromyalgia Unknown Active Osteoarthritis of left knee Unknown Acti ve Knee pain Unknown Active Contusion of left knee Unknown Active Medications Medication Status Dose Units Route Directions Qty Days St art Date Stop Date End Date Instructions Adherence Tramadol 50 mg tablet Discont inued 50 MG PO EVERY 4-6 HOURS as needed for pain 42 7 May 12, 2023 12:00a m July 12, 2023 9:53a m dispense #42 (forty two) DX: S83.207A Vit C-S.Thapa- Celery-Grap e Sd (Tart Thapa) 30-250-75-7 5-20 mg capsule Discont inued CAP PO July 12, 2023 12:00a m July 24, 2024 9:24a m Duloxetine 60 mg capsule,del ayed release(DR/ EC) Active 60 MG PO Daily at 0630 July 24, 2024 12:00a m Unknown Tramadol 50 mg tablet Discont inued 50 MG PO Twice daily as needed for pain 30 15 October 13, 2023 12:00a m August 13, 2024 8:25a m multivit with min-folic acid Active 1 TAB PO Daily July 11, 2024 12:00a m Unknown Pantoprazol e 40 mg tablet,shelby yed release (DR/EC) Active 40 MG PO Once July 11, 2024 12:00a m Unknown Simvastatin 20 mg tablet Active 20 MG PO Daily July 11, 2024 12:00a m Unknown Metoprolol Tartrate 50 mg tablet Active 50 MG PO Twice daily July 11, 2024 12:00a m Unknown Cyclobenzap rine 10 mg tablet Active 10 MG PO Three times daily as needed for muscle spasm July 11, 2024 12:00a m Unknown Insulin Glargine (Lantus Solostar U-100 Insulin) 100 unit/mL (3 mL) insulin pen Active 30 UNIT SUBCUT Twice daily July 11, 2024 12:00a m Unknown Acetaminoph en-Codeine 300-30 mg tablet Active TAB PO August 13, 2024 12:00a m Unknown Sitagliptin Phosphate 100 mg tablet Discont inued 1 TAB PO Daily May 09, 2023 12:00a m July 11, 2024 10:47 am FreeTextSi tablet Orally Once a day; Note: Source Status: Taking; Provider: Marga Flores ( ) Bupropion Hcl 300 mg tablet extended release 24 hr Discont inued 1 TAB PO Daily May 09, 2023 12:00a m July 11, 2024 10:47 am FreeTextSi tablet in the morning Orally Once a day; Note: Source Status: Taking; Provider: Marga Flores ( ) Aripiprazol e 5 mg tablet Discont inued 5 MG PO Daily May 09, 2023 12:00a m July 11, 2024 10:48 am FreeTextSi tablet Orally Once a day; Note: Source Status: Taking; Provider: Marga Flores ( ) Nabumetone 500 mg tablet Discont inued 1 TAB PO Twice daily May 09, 2023 12:00a m July 11, 2024 10:47 am FreeTextSi tablet Orally Twice a day; Note: Source Status: Taking; Provider: Marga Flores ( ) Pioglitazon e 45 mg tablet Discont inued 45 MG PO Daily May 09, 2023 12:00a m July 11, 2024 10:47 am FreeTextSi tablet Orally Once a day; Note: Source Status: Taking; Provider: Marga Flores ( ) Sertraline 100 mg tablet Discont inued 100 MG PO Daily May 09, 2023 12:00a m July 11, 2024 10:47 am FreeTextSi tablet Orally Once a day; Note: Source Status: Taking; Provider: Marga Flores ( ) Metformin 500 mg tablet Discont inued 500 MG PO Daily May 09, 2023 12:00a m July 11, 2024 10:47 am FreeTextSi tablet with a meal Orally Once a day; Note: Source Status: Taking; Provider: Marga Flores ( ) Empaglifloz in (Jardiance) 25 mg tablet Discont inued 25 MG PO Daily May 09, 2023 12:00a m July 11, 2024 10:47 am Procedures Procedure Date Performed Status XR knee LT 2V August 30, 2024 9:24am completed Urine Culture September 05, 2024 active DH Nerve Radio Frequency (Left) July 24, 2024 10:50am completed Relevant Diagnostic Tests and/or Laboratory Data Diagnostic Imaging Reports Author Dann Harris [facility] Authored August 30, 2024 4:58 pm Report Dictated Date/Time Dictated By Status Radiology Report August 30, 2024 4:58pm Dann Harris DO completed [facility] [address] [place] [address] XRay Report Signed Patient: Susanne Clark MR#: [id number] : 1965 Acct:[id number] Age/Sex: 58 / F ADM Date: 5 Loc: [facility] Room: Type: [facility] Attending Dr: Gregg Nassar MD Copies to: Gregg Nassar MD~ Ordering Provider: Gregg Nassar MD Date of Service: 08/30/24 XR/XR knee LT 2V: M17.12 - Unilateral primary oste oarthritis, left knee 2 views left knee plain film COMPARISON: 10/13/2023 HISTORY: Left knee pain for months ACUTE FINDINGS: No acute findings DEGENERATIVE CHANGE: Superior patellar enthesophyte. Mild similar degeneration. SOFT TISSUE FINDINGS: Unremarkable JOINT EFFUSION: None POSTOP CHANGES: None BONE MINERALIZATION: Adequate XR/XR knee LT 2V IMPRESSION: Similar mild degenerative change Impression dictated by: Dann Harrsi M.D. 08/30/2024 4:59 PM Dictation Location: [facility]--23 Transcribed By: PWS 08/30/241658 Dictated By: Dann Harris DO 08/30/24 1658 Signed By: <Electronically signed by Dann Harris DO in OV> 08/30/24 1659 Vital Signs Vital Reading Result Reference Range Collection Date/Time Height 66 [in_i] July 24, 2024 9:26am Weight 102.05 kg July 24, 2024 9:26am Heart Rate 75 /min 60-100 July 24, 2024 10:45am Respiratory rate 16 /min 12-24 July 24, 2024 10:45am Oxygen saturation by Pulse oximetry 93 % 95-100 July 24, 2024 10:4 5am BP Systolic 123 mm[Hg] 100-140 July 24, 2024 10:45am BP Diastolic 82 mm[Hg] 60-100 July 24, 2024 10:45am Inhaled oxygen flow rate 3 L/min Jul 10:12am Advance Directives Advance Directive Response Recorded Date/ Time Advance Directives No December 12, 2021 1:39pm Insurance Providers Guarantor Susanne Clark Address [address] [place] [phone] Contact Info. Home Phone: Payer Policy Id Subscriber's Name Subscriber Id Effectiv e Date Expiration Date Lida BAGLEY/JESUS ALBERTO [id number] Susanne Clark [id number] Encounters Encounter Location(s) Arrival/Admit Date Discharge/Depart Date Provider(s) Departed Physician/Prov ider Office Visit -[facility] July 11, 2024 9:53am July 11, 2024 11:09am Antwon Will MD Departed [facility] July 24, 2024 8:58am July 24, 2024 10:46am Antwon Will MD Non-patient / Non-visit -[facility] July 24, 2024 10:08am Antwon Will MD Departed Physician/Prov ider Office Visit -[facility] August 13, 2024 7:58am August 13, 2024 8:39am Antwon Will MD Departed Physician/Prov ider Office Visit -[facility] August 30, 2024 9:02am August 30, 2024 9:36am Antwon Will MD Departed Clinical -[facility] August 30, 2024 9:24am August 30, 2024 9:25am Antwon Will MD Departed Referred -[facility] September 05, 2024 8:15am September 05, 2024 8:16am Vielka Galeano MD Recent Diagnosis Onset Date Admit Date Chronic pain Unknown July 11, 2024 9 :53am Fibromyalgia Unknown July 11, 2024 9 :53am Osteoarthritis of left knee Unknown July 11, 2024 9:53am Chronic pain Unknown August 13, 2024 7:58am Fibromyalgia Unknown August 13, 2024 7:58am Osteoarthritis of left knee Unknown August 13, 2024 7:58am Chronic pain Unknown August 30, 2024 9:02am Fibromyalgia Unknown August 30, 2024 9:02am Osteoarthritis of left knee Unknown August 30, 2024 9:02am Assessments Diagnosis Onset Date Resolution Status Admit Date Chronic pain acute July 11 9:53am Fibromyalgia acute July 11 9:53am Osteoarthritis of left knee acute July 11, 2024 9:53am Chronic pain acute August 13, 2 025 7:58am Fibromyalgia acute August 13, 2 025 7:58am Osteoarthritis of left knee acute August 13, 2024 7:58am Chronic pain acute August 30, 2 025 9:02am Fibromyalgia acute August 30, 2 025 9:02am Osteoarthritis of left knee acute August 30, 2024 9:02am Plan of Treatment Author Gregg Nassar [facility] Authored July 11, 2024 11:30 am Patients primary complaint t angel is returning severe left knee pain. Given previous positive success as well as returning symptoms, patient is a reasonable candidate for a repeat left genicular nerve radiofrequency ablation which we will proceed with. Risks and benefits of procedure explained to patient; patient verbalizes understanding. Additionally, patient is requesting pain medication today, discussed I would leave this to the discretion of the current prescribing provider. We will follow up with the patient two weeks following her procedure. Anatomy discussed in detail with patient in regards to patients condition. Patient also notes a diagnosis of Fibromyalgia and states this was moderately controlled while taking Nabumetone, however, she is no longer able to tolerate this due to elevated kidney function. Discussed trialing the patient on Lyrica and Cymbalta. She notes tramadol not being effective and additionally this was taken over by her PCP, I explained this would be at his discretion. Above note written by Juni Banegas MA, Glycerine Plant Operator. Edited and approved by Dr. Gregg Nassar MD. Author [facility] Authored August 13, 2024 8:37 am Patient notes considerable i mprovement in their symptoms following a recent left genicular nerve radiofrequency ablation. We will continue to monitor and proceed with repeat treatment to the area as needed. Another consideration could be GIBSON injections. She was advised of the importance of activity modification and limitations. We discussed updating the patients knee imaging, however, she declines at this time. We will follow up with the patient in six months, sooner if needed. Anatomy of spine discussed in detail with patient in regards to patients condition. Overall, patient believes their pain is reasonably well controlled and she is in agreement with our treatment plan. Above note written by Juni Banegas MA, Glycerine Plant Operator. Edited and approved by Dr. Gregg Nassar MD. Author Gregg Nassar [facility] Authored August 30, 2024 9:50 am Patients primary complaint t angel is severe left knee pain. Updated x-ray of the knee appears similar to prior, some degenerative changes. We discussed a possible referral to orthopedics vs GIBSON injections, patient wishes to continue with conservative treatment which is reasonable. We will plan to proceed with GIBSON injections pending insurance approval. Our office will contact the patient to schedule once we obtain authorization. Above note written by Juni Banegas MA, Glycerine Plant Operator. Edited and approved by Dr. Gregg Nassar MD. Future Tests Future scheduled test information is unavailable Pending Tests Test Name Ordered Date Scheduled Date Urine Culture September 05, 2024 8:15am Future Visits Future appointment information is unavailable Referrals to Other Providers Reason for Referral Referral Start Date Provider Provider Contact Information Provider Address Call Dr. Horne office to schedule a follow up appointment if you do not already have one scheduled Antwon Will MD Work Phone: [facility] [place] [phone] Future Procedures Procedure Name Ordered Date Scheduled Date Urine Culture September 05, 2024 1:19pm August 8:15am Discharge Order July 24, 2024 10:46am July 10:46am Future Medications Future medication information is unavailable Patient Instructions Instruction Admit Date Know your Meds Felter Non Diagnostic Block July 24, 2024 8:58am Goals Acute Goals Author Authored Date Experience reduced anxiety * Identifies current stressors * Develops effective coping behaviors * Uses support services as appropriate [facility] July 24, 2024 10:51am Remain free of complications [facility] July 24, 2024 10:51am Understand preop/postop care/sensations * Verbalizes understanding of surgical procedure * Verbalizes understanding of sensations following surgery * Verbalizes understanding of post-op treatment plan [facility] July 24, 2024 10:51am Report pain at tolerable lev el * Uses pain scale appropriately * Identify options for pain control - Analgesics - Narcotics - Non-medication measures [facility] July 24, 2024 10:51am Absence of imbalanced fluid volume s/s [facility] July 24, 2024 10:51am Absence of physical injury [facility] July 24, 2024 10:51am Absence of surgical site infection [facility] July 24, 2024 10:51am
--- OUTSIDE RECORDS SUMMARY | 2024-09-06 11:45 | XMS_ITS ---
Author Organization [facility] in [place] Address [address] [place] [address] Care Team Providers Care Foundation Relations Manager Name Role Phone Quincy Parry Primary Care Provider [phone] Allergies Allergen (clinical drug ingredient) Drug/Non Drug Allergy documented on EMR Reaction Allergy Type Onset Date Status Keflex back pain Drug Allergy Active lisinopril Lisinopril Unknown Drug Allergy Activ e tramadol traMADol oral lesions Drug Allergy Acti ve REASON FOR VISIT ER F/U- UTI- said she is feeling just as bad as she was when she went in there, Urine is dark, thinks blood in the urine- is currently on Macrobid for a UTI and also has zofran for nausea, Also has aheadache today Medications Medication SIG (Take, Route, Frequency, Duration) Notes Start Date End Date Status Julianne Thapa Active Test Strips - Dx: 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 Once daily for 90 days 03/28/2024 Active Protonix 40 MG 1 tablet Orally Once a day for 30 days 03/23/2024 Active Simvastatin 20 MG 1 tablet Orally Once a day for 90 days Active Triamcinolone Acetonide 0.1 % External for 14 Days Active Multivitamin Active Pen [place] 31G X 6 MM Use 5 needles kvng ly to inject Insulin DX E11.9 for 30 days Active Magnesium Oxide 400 MG 1 tablet with trish d Orally Once a day 09/06/2024 Active Metoprolol Tartrate 50 MG 1 tablet with food Orally Twice a day for 30 days 03/19/2024 Active Lantus SoloStar 100 UNIT/ML Inject 60 un its Subcutaneous once daily for 50 days Active Cyclobenzaprine HCl 10 MG 1 tablet Orall y tid for 30 days 06/18/2024 Active Cymbalta 60 MG 1 capsule Orally Onc e a day for 30 days 07/11/2024 Active Diclofenac Sodium 3 % 1 application Exte rnally Twice a day 07/16/2024 Active MAGnesium-Oxide 400 (240 Mg) MG 1 tablet with food Orally bid for 30 days 09/06/2024 Active levoFLOXacin 750 MG 1 tablet Orally Once a day for 10 day(s) 09/06/2024 Active Blood Glucose Monitor System w/Device use device Dx:E11.9 daily to monitor blood glucose level 03/28/2024 Active Acetaminophen-Codeine 300-30 MG 1 tablet as needed Orally every 6 hrs for 7 days 08/28/2024 Active Social History Tobacco Use: Social History [...] User Light cigarett e smoker ((1-9 cigs/day) Vital Signs Blood pressure systolic 116 mm Hg 09/07/19 25 Blood pressure diastolic 68 mm Hg 025 Height 66 in 09/06/2024 Weight 221.4 lbs 09/06/2024 BMI 35.73 kg/m2 09/06/2024 Encounters Encounter Location Date Provider Diagnosis [facility] [address] [place] [address] 09/06/2024 Quincy Hoy UTI (urinary tract infection), uncomplicated N39.0 and Dysuria R30.0 Assessments Encounter Date Diagnosis (ICD Code) Assessment Notes Treatment Notes Treatment Clinical Notes Section Notes 09/06/2024 UTI (urinary tract infection), uncomplicated (ICD-10 - N39.0) Drink plenty of water. Avoid drinks like coffee, alcohol and soft frinks, as these can irritate your bladder and aggravate your frequent or urgent need to urinate. Apply a warm heating pad to your abdomen to minimize bladder pressure or discomfort. You have been prescribed antibiotics for a urinary tract infection. Antibiotics may bother your stomach, so try taking them with a light meal (unless instructed otherwise by your pharmacist). It is important to take them until they are finished. You can use txmw-xak-shlvnsr acetaminophen or ibuprofen if needed for pain. You should follow up with your Primary Care Physician or return to clinic if not improving in the next 3-5 days. 09/06/2024 Dysuria (ICD-10 - R30.0) Plan Of Treatment Medication Medication Name Sig Start Date Stop Date Notes MAGnesium-Oxide 400 (240 Mg) MG 1 tablet with food Orally bid for 30 days 09/06/2024 levoFLOXacin 750 MG 1 tablet Orally Once a day for 10 day(s) 09/06/2024 Treatment Notes Assessment Notes UTI (urinary tract infection ), uncomplicated Drink plenty of water. Avoid drinks like coffee, alcohol and soft frinks, as these can irritate your bladder and aggravate your frequent or urgent need to urinate. Apply a warm heating pad to your abdomen to minimize bladder pressure or discomfort. You have been prescribed antibiotics for a urinary tract infection. Antibiotics may bother your stomach, so try taking them with a light meal (unless instructed otherwise by your pharmacist). It is important to take them until they are finished. You can use ledt-ogk-talhlfz acetaminophen or ibuprofen if needed for pain. You should follow up with your Primary Care Physician or return to clinic if not improving in the next 3-5 days. Next Appt Details Follow Up: 3-5 days if no im provement, Reason: Progress Notes * Susanne PINZON GDOB:[birth year] (58 yo F)Acc No.[id number]:09/06/2024 UNLOCKED PROGRESS NOTE Progress Note Patient: Susanne THURSTON Provider[facility] Dolores Par[facility] P[facility] :1965 A ge:58 Y S ex:Female Date:09/06/2024 Address:[address] [place], [place] [id number] Check In:03:27 PM ESTCheck O ut:04:04 PM EST Subjective: * Chief Complaints: * 1 . ER F/U- UTI- said she is feeling just as bad as she was when she went in there. 2. Urine is dark, thinks blood in the urine- is currently on Macrobid for a UTI and also has zofran for nausea. 3. Also has a headache today. * HPI: G eneral: INer for UTI - sugars elevated at home - given mag and fluids in ER -= gtreated with mag and macrobvid this was yesterday. U TI: The patient complains of s ymptoms of UTI. The symptoms have been present for 1 -2 days. The symptoms are m oderate. Symptomatic treatment has included O TC Medication. Associated symptoms include i ncreased urge to urinate, painful urination, pelvic pain. * ROS: G eneral/Constitutional: Malaise d enies. C hills d enies. F ever d enies. S kin: Rash d enies. C ardiovascular: Edema d enies. P alpitations d enies. ? R espiratory: Chest pain d enies. C ough d enies. ? G astrointestinal: Abdominal pain d enies. N ausea d enies. V omiting d enies. G enitourinary: Comments S HPI for details. S kin: Rash d enies. * Medical History: O bstructive sleep apnea (adult) (pediatric), Over weight, Osteoarthritis, Essential Hypertension, Well adult, Hyperlipidemia, Diabetes type 2, controlled, Anxiety, Hypertensive retinopathy, Fibromyalgia, Astigmatism, Depression, Qualitative platelet defects, Suicidal ideation. * Surgical History: T AH 2009, Exp. Lap 2009, LT Knee nerve radiofrequency ablation- Dr. Nassar 07/12/2023, bilateral oophorectomy , hysterectomy . * Hospitalization/Major Diagno stic Procedure: P leurisy, High BP 03/2024. * Family History: F ather: , diagnosed with Diabetes mellitus without mention of complication, type II or unspecified type, not stated as uncontrolled, Unspecified essential hypertension, Unspecified heart disease, Chronic kidney disease, unspecified. M other: alive, Hypercholesterolemia, GERD, diagnosed with Unspecified essential hypertension. S ister(s): alive, stroke. S on(s): alive, obesity. D aughter(s): alive, obesityNeurological DisorderCardiac IssuesThyroidectomy- complete.?1 sister(s) . 2 son(s) , 1 daughter(s) . . * Social History: T obacco Use: T obacco Use/Smoking P atient is a f ormer smoker W hen did you start smoking? 0 02/14/1981 W hen did you stop smoking? 0 02/14/2010 H ow long has it been since you last smoked??> 10 years A dditional Findings: Tobacco User L ight cigarette smoker ((1-9 cigs/day) * Medications: T aking Acetaminophen-Codeine 300-30 MG Tablet 1 tablet as needed Orally every 6 hrs , Taking Blood Glucose Monitor System w/Device Kit use device Dx:E11.9 daily to monitor blood glucose level , Taking Cyclobenzaprine HCl 10 MG Tablet 1 tablet Orally tid , Taking Cymbalta 60 MG Capsule Delayed Release Particles 1 capsule Orally Once a day , Taking Diclofenac Sodium 3 % Gel 1 application Externally Twice a day , Taking Lantus SoloStar(Insulin Glargine) 100 UNIT/ML Solution Pen-injector Inject 60 units Subcutaneous once daily , Taking Magnesium Oxide 400 MG Tablet 1 tablet with food Orally Once a day , Taking Metoprolol Tartrate 50 MG Tablet 1 tablet with food Orally Twice a day , Taking Multivitamin , Taking Pen [place] 31G X 6 MM Miscellaneous Use 5 needles daily to inject Insulin DX E11.9 , Taking Protonix(Pantoprazole Sodium) 40 MG Tablet Delayed Release 1 tablet Orally Once a day , Taking Simvastatin 20 MG Tablet 1 tablet Orally Once a day , Taking Tart Thapa , Taking Test Strips - - Dx: E11.9 Dx: Diabetes Type II Once daily , Taking Triamcinolone Acetonide 0.1 % Cream External , Medication List reviewed and reconciled with the patient * Allergies: K eflex: back pain - Allergy, Lisinopril: Allergy, traMADol: oral lesions - Allergy. Objective: * Vitals: W t:221.4lbs, Ht: 66 in, BP:116/68mm Hg, BMI:35.73Index, Ht-cm: 167.64 cm, Wt-k.43 kg. * Examination: G eneral Examination: GENERAL APPEARANCE: w ell developed, well nourished, in no acute distress. ENT: ear and nose external appearance normal. ENMT: tongue, hard and soft palate and posterior pharynx appear normal. LYMPH NODES: n o axillary, supraclavicular or inguinal adenopathy. LUNGS: c lear to auscultation bilaterally. CARDIO: S 1, S2 normal, no murmurs, rubs, gallops. ABDOMEN: s oft, nontender, nondistended. GENITOURINARY: Bladder non-distended, urethra normal.? MUSCULOSKELETAL: full range of motion. SKIN: no rashes, warm and dry. NEUROLOGIC: alert and oriented to time, place, & person. PSYCH: mood/affect full range. Assessment: * Assessment: 1. U TI (urinary tract infection), uncomplicated - N39.0 (Primary) 2 . D ysuria - R30.0 Plan: * Treatment: * Procedure Codes: 8 1000 URINALYSIS, Modifiers: QW * Preventive Medicine: Screenings/Counseling: B ND ACTION PLAN Above Normal BMI Follow-up D ietary management education, guidance, and counseling * Follow Up: 3 -5 days if no improvement * * Electronic signature of Quincy Parry MD, [id number] on 09/06/2024 at 04:26 PM EDT Sign off status: Pending Visit Status: [facility] (Check Out) * Provider: Dolores Parry ([facility])MD Date: 09/06/2024 Generated for Printi ng/Faxing/eTransmitting on: 09/06/2024 04:26 PM EDT History and Physical Notes * HPI (History of Present Illness) Category Sub-Category Detail Notes Category Not es General INer for UTI - sugars elevated at home - given mag and fluids in ER -= gtreated with mag and macrobvid this was yesterday UTI The patient complains of symptoms of UTI The symptoms have been present for 1-2 d ays The symptoms are moderate Symptomatic treatment has included OTC M edication Associated symptoms include increased ur ge to urinate, painful urination, pelvic pain Examination Category Sub-Category Detail Notes Category Not es General Examination GENERAL APPEARANCE: well dev eloped, well nourished, in no acute distress ENT: ear and nose externa l appearance normal CARDIO: S1, S2 normal, no mu rmurs, rubs, gallops LUNGS: clear to auscultatio n bilaterally ABDOMEN: soft, nontender, non distended NEUROLOGIC: alert and oriented t o time, place, & person SKIN: no rashes, warm and dry MUSCULOSKELETAL: full range of motion LYMPH NODES: no axillary, supracl avicular or inguinal adenopathy PSYCH: mood/affect full ran ge ENMT: tongue, hard and sof t palate and posterior pharynx appear normal GENITOURINARY: Bladder non-distende d, urethra normal
--- OUTSIDE RECORDS SUMMARY | 2024-09-06 16:26 | XMS_ITS | Clinical Summary ---
Author Organization [facility] Address [address] [place] [address] Care Team Providers Care Continuous Towel Roller Name Role Phone Florencio Parry MD Primary Care Provider [phone] Allergies Active Allergy Reactions Criticality Noted Date [...] [facility] [address] [place] [id number] Adrien Jacques DPM Venous insufficiency (Primary Dx); Diabetes mellitus due to underlying condition with diabetic polyneuropathy, without long-term current use of insulin (HCC); Pain due to onychomycosis of toenails of both feet 07/12/2024 Bamboo flowsheet [facility] [address] [facility] [address] [place] [address] Adrien Jacques DPM 07/12/2024 Travel from Last [...] Upcoming Encounters Date Type Department Care Team ([facility] st Contact Info) Description 09/20/2024 10:20 AM EDT Office Visit [facility] [address] [facility] [address] [place] [address] Adrien Jacques DPM [address] [facility] [address] [place] [address] Health Maintenance Due Date Last Done Comments CT Colonography 1965 Colonoscopy 1965 Colorectal Cancer Screening 1965 FIT-DNA 1965 FIT 1965 FOBT 1965 Sigmoidoscopy 1965 Pap Smear 10/10/1984 Cervical Cancer Screening 10/10/1993 HPV/Cotest 10/10/1993 Mammogram 2003 Influenza Vaccine (#1) 2024 4, 11/01/2022, 12/07/2021, Additional history exists Insurance Care Teams Continuous Towel Roller Relationship Specialty Start Date End Date Florencio Parry MD [address] [place] [id number] PCP - General Family Medicine 02/02/23
--- OUTSIDE RECORDS SUMMARY | 2024-09-06 16:27 | XMS_ITS | Patient Health Record ---
Author Organization The [facility] in [place] Address [address] [place] [address] Care Team Providers Care Blood Bank Business Manager Name Role Phone Quincy Parry Primary Care Provider Allergies Allergen (clinical drug ingredient) Drug/Non Drug Allergy documented on EMR Reaction Allergy Type Onset Date Status Keflex back pain Drug Allergy Active lisinopril Lisinopril Unknown Drug Allergy Activ e tramadol traMADol oral lesions Drug Allergy Acti ve Results Component Value Reference Range Notes GLYCOHEMOGLOBIN A1C Reviewed date:11/29/2023 06:13:59 PM Interpretation: Performing Lab: Notes/Report: [facility] , Glycohemoglobin A1C 6.6 4.5-6.2 % ADA RECOMMENDED LIMIT 4.0 - 6.0 ADA THERAPEUTIC TARGET < 7.0 ACTION SUGGESTED > 7.0 Estimated Average Glucose 143 Performing Lab: see note ML - [facility] LB LIPID PROFILE Reviewed date:11/29/2023 06:13:59 PM Interpretation: Performing Lab: Notes/Report: [facility] , Triglycerides 294 <=150 mg/dL Cholesterol [...] >11.0 HIGH RISK Performing Lab: see note ML - [facility] LB PROF 14(COMP METB) Reviewed date:11/29/2023 06:13:59 PM Interpretation: Performing Lab: Notes/Report: [facility] , Sodium 142 136-145 mmol/L Potassium 4.2 [...] Performing Lab: see note ML - [facility] LB CBC AUTO DIFF Reviewed date:03/17/2024 04:42:02 PM Interpretation: Performing Lab: Notes/Report: [facility] , White Blood Count 8.8 4.0-11.0 [...] 3/uL Performing Lab: see note ML - [facility] LB ECG 12 lead Reviewed date:03/19/2024 09:03:34 PM Interpretation: Performing Lab: Notes/Report: Source Facility: [place] [address] Electrocardiograph Report Signed Patient: SUSANNE PINZON MR#: [id number] : 1965 Acct:[id number] Age/Sex: 58 / F ADM Date: 03/17/24 Loc: ER Attending Dr: Ordering Physician: Vielka Curran Date of Service: 03/17/24 Procedure(s): ECG 12 lead Accession Number(s): [id number] cc: [facility] Test Date: 2024-03-17 Pat Name: SUSANNE PINZON Department: Room: - Gender: Female Silver Chaser: : 1965 Requested By: JAJA PARRY Order Number: [id number] Reading MD: JAJA PARRY Measurements Intervals [place] Rate: 78 P: 64 AK: 158 QRS: 45 QRSD: 88 T: 44 QT: 390 QTc: 423 Interpretive Statements 1100 Sinus rhythm 9110 normal ECG Compared to ECG 01/13/2023 19:03:59 No significant changes Electronically Signed On 03-19-2024 13:34:01 EST by JAJA PARRY Dictated By: Jaja Parry M.D. Signed By: 03/19/241333 DD/ 1543 TD/TT: Photogrammetric Surveyor: [place] [address] Electrocardiograph Report Signed Patient: MADAN PINZON MR#: [id number] : 1965 Acct:[id number] Age/Sex: 58 / F ADM Date: 03/17/24 Loc: ER Attending Dr: Ordering Physician: Vielka Curran Date of Service: 03/17/24 Procedure(s): ECG 12 lead Accession Number(s): [id number] cc: [facility] Test Date: 2024-03-17 Pat Name: SUSANNE PINZON Department: 25 Room: - Gender: Female Silver Chaser: : 1965 Requested By: JAJA PARRY Order Number: [id number] Reading MD: JAJA PARRY Measurements Intervals [place] Rate: 78 P: 64 AK: 158 QRS: 45 QRSD: 88 T: 44 QT: 390 QTc: 423 Interpretive Statements 1100 Sinus rhythm 9110 normal ECG Compared to ECG 01/13/2023 19:03:59 No significant changes Electronically Shandra d On 03-19-2024 13:34:01 EST by JAJA PARRY Dictated By: Linnea Parry M.D. Signed By: 03/19/241333 DD/ 1543 TD/TT: Photogrammetric Surveyor: BNP Reviewed date:03/21/2024 05:16:30 PM Interpretation: Performing Lab: Notes/Report: [facility] , NT Pro B Type Natriuretic Pept 70.0 <=900.0 pg/mL Performing Lab: see note ML - [facility] LB CBC AUTO DIFF Reviewed date:03/21/2024 05:16:30 PM Interpretation: Performing Lab: Notes/Report: [facility] , White Blood Count 12.6 4.0-11.0 [...] 3/uL Performing Lab: see note ML - [facility] LB CRP Reviewed date:03/21/2024 05:16:30 PM Interpretation: Performing Lab: Notes/Report: [facility] , C Reactive Protein <0.50 <=0.50 mg/dL Performing Lab: see note ML - [facility] LB PROF 14(COMP METB) Reviewed date:03/21/2024 05:16:30 PM Interpretation: Performing Lab: Notes/Report: [facility] , Sodium 136 136-145 mmol/L Potassium [...] 1.1 Performing Lab: see note ML - [facility] Troponin I High Sensitivity Reviewed date:03/21/2024 05:16:30 PM Interpretation: Performing Lab: Notes/Report: [facility] , Troponin I High Sensitivity 7.3 4.0-51.3 pg/mL CUT-OFF POINTS HAVE BEEN ESTABLISHED BASED ON THE FOURTH UNIVERSAL DEFINITION OF MYOCARDIAL INFARCTION. THE UPPER REFERENCE LIMIT (URL) OF TROPONIN, DEFINED THE 99TH PERCENTILE OF cTnI DISTRIBUTION IN A REFERENCE POPULATION, HAS BEEN CONFIRMED THE DECISION THRESHOLD FOR OK DIAGNOSIS. 99TH PERCENTILE = 51.4 PG/ML NOTE: HIGH-SENSITIVITY TROPONIN ASSAY IS NOT INTENDED TO BE USED IN ISOLATION BUT SHOULD BE INTERPRETED IN CONJUNCTION WITH OTHER DIAGNOSTIC AND CLINICAL INFORMATION. Performing Lab: see note ML - [facility] Venous Blood Gas Reviewed date:03/21/2024 05:16:30 PM Interpretation: Performing Lab: Notes/Report: [facility] , pH VBG 7.427 7.330-7.430 PCO2 VBG 33.7 40.0-52.0 mmHg Performing Lab: see note ML - [facility] LB AMYLASE Reviewed date:03/22/2024 06:44:50 PM Interpretation: Performing Lab: Notes/Report: [facility] , Amylase 26 25-115 U/L Performing Lab: see note - [facility] LB LIPASE Reviewed date:03/22/2024 06:44:51 PM Interpretation: Performing Lab: Notes/Report: [facility] , Lipase 46.0 16.0-77.0 U/L Performing Lab: see note - [facility] LB PROF 14(COMP METB) Reviewed date:03/22/2024 06:44:51 PM Interpretation: Performing Lab: Notes/Report: [facility] , Sodium 138 136-145 mmol/L Potassium [...] Performing Lab: see note ML - [facility] LB UA (CLEAN or CATCH) MANAGER COMPLETIONS or M ICRO IF IND. Reviewed date:03/22/2024 06:44:51 PM Interpretation: Performing Lab: Notes/Report: [facility] , Color Urine YELLOW YELLOW Clarity Urine CLEAR CLEAR Specific [place] Urine 1.025 1.005-1.025 pH Urine 6.0 5.0-9.0 Protein Urine NEGATIVE NEG/TRACE mg/dL Glucose Urine UA >=1000 NEGATIVE mg/dL Bilirubin Urine NEGATIVE NEGATIVE Ketones Urine TRACE NEGATIVE mg/dL Blood Urine NEGATIVE NEGATIVE Nitrite Urine NEGATIVE NEGATIVE Urobilinogen Urine 0.2 0.2-1.0 EU/dL Leukocyte Esterase Urine NEGATIVE NEGATIVE Urine Microscopic Indicated NO Performing Lab: see note ML - [facility] LB Troponin I High Sensitivity Reviewed date:03/22/2024 06:44:51 PM Interpretation: Performing Lab: Notes/Report: [facility] , Troponin I High Sensitivity 4.9 4.0-51.3 pg/mL CUT-OFF POINTS HAVE BEEN ESTABLISHED BASED ON THE FOURTH UNIVERSAL DEFINITION OF MYOCARDIAL INFARCTION. THE UPPER REFERENCE LIMIT (URL) OF TROPONIN, DEFINED THE 99TH PERCENTILE OF cTnI DISTRIBUTION IN A REFERENCE POPULATION, HAS BEEN CONFIRMED THE DECISION THRESHOLD FOR [place] DIAGNOSIS. 99TH PERCENTILE = 51.4 PG/ML NOTE: HIGH-SENSITIVITY TROPONIN ASSAY IS NOT INTENDED TO BE USED IN ISOLATION BUT SHOULD BE INTERPRETED IN CONJUNCTION WITH OTHER DIAGNOSTIC AND CLINICAL INFORMATION. Performing Lab: see note ML - [facility] LB ECG 12 lead Reviewed date:03/23/2024 08:52:54 AM Interpretation: Performing Lab: Notes/Report: Source Facility: [place] [address] [place] [address] Electrocardiograph Report Signed Patient: SUSANNE PINZON MR#: [id number] : 1965 Acct:[id number] Age/Sex: 58 / F ADM Date: 03/22/24 Loc: MS 212-[address]: Jaja Parry M.D. Ordering Physician: Roro Portillo D.O. Date of Service: 03/22/24 Procedure(s): ECG 12 lead Accession Number(s): [id number] cc: [facility] Test Date: 2024-03-22 Pat Name: SUSANNE PINZON Department: Room: - Gender: Female Silver Chaser: : 1965 Requested By: JAJA PARRY Order Number: [id number] Reading MD: JAJA PARRY Measurements Intervals [place] Rate: 63 P: 63 AK: 150 QRS: 42 QRSD: 84 T: 34 QT: 414 QTc: 421 Interpretive Statements 1100 Sinus rhythm 8102 Low QRS voltage in chest leads 9120 atypical ECG Compared to ECG 03/21/2024 13:57:23 Low QRS voltage now present Electronically Signed On 03-23-2024 6:27:10 EST by JAJA PARRY Dictated By: Jaja Parry M.D. Signed By: 03/23/24 06 DD/ 1529 TD/TT: Photogrammetric Surveyor: [place] [address] Electrocardiograph Report Signed Patient: MADAN PINZON MR#: [id number] : 1965 Acct:[id number] Age/Sex: 58 / F ADM Date: 03/22/24 Loc: MS 212-[address]: Christal Parry M.D. Ordering Physician: Roro Portillo D.O. Date of Service: 03/22/24 Procedure(s): ECG 12 lead Accession Number(s): [id number] cc: [facility] Test Date: 2024-03-22 Pat Name: SUSANNE PINZON Department: 25 Room: - Gender: Female Silver Chaser: : 1965 Requ ested By: JAJA PARRY Order Number: [id number] Reading MD: JAJA PARRY Measurements Intervals [place] Rate: 63 P: 63 AK: 150 QRS: 42 QRSD: 84 T: 34 QT: 414 QTc: 421 Interpretive Statements 1100 Sinus rhythm 8102 Low QRS voltage in chest leads 9120 atypical ECG Compared to ECG 03/21/2024 13:57:23 Low QRS voltage now present Electronically Shandra d On 03-23-2024 6:27:10 EST by JAJA PARRY Dictated By: Linnea Parry M.D. Signed By: 03/23/24 0627 DD/ 1529 TD/TT: Photogrammetric Surveyor: CT abdomen pelvis w con Reviewed date:03/22/2024 06:44:51 PM Interpretation: Performing Lab: Notes/Report: Source Facility: [place] [address] CT Scan Report Signed Patient: SUSANNE PINZON MR#: [id number] : 1965 Acct:[id number] Age/Sex: 58 / F ADM Date: 03/22/24 Loc: ER Attending Dr: Ordering Physician: Roro Portillo D.O. Date of Service: 03/22/24 Procedure(s): CT abdomen pelvis w con Accession Number(s): [id number] cc: Jaja Parry M.D. [place] [address] Patient Name: SUSANNE PINZON MRN: [facility]:[id number] date: 1965 Sex: F Assigned Patient Location: ER Current Patient Location: ER Accession/Order Number: [id number] Exam Date: 03/22/2024 15:35 Report Date: 03/22/2024 [...] Dictated By: Monse Dawson M.D. Signed By: 03/22/24 1613 DD/ 1610 TD/TT: Photogrammetric Surveyor: [place] [address] CT Scan Report Signed Patient: MADAN PINZON MR#: [id number] : 1965 Acct:[id number] Age/Sex: 58 / F ADM Date: 03/22/24 Loc: ER Attending Dr: Ordering Physician: Roro Portillo D.O. Date of Service: 03/22/24 Procedure(s): CT abd omen pelvis w con Accession Number(s): [id number] cc: Jaja Parry M.D. The [address] [place], [place] [address] Patient Name: SUSANNE PINZON MRN: [id number] date: 1965 Sex: F Assigned Patient Location: ER Current Patient Loca tion: ER Accession/Order Numb er: [id number] Exam Date: 03/22/2024 15:35 Report Date: 03/22/2024 [...] Dictated By: Saad Dawson M.D. Signed By: 03/22/248 DD/ 09 TD/TT: Photogrammetric Surveyor: CBC AUTO DIFF Reviewed date:03/23/2024 08:52:54 AM Interpretation: Performing Lab: Notes/Report: [facility] , White Blood Count 11.1 4.0-11.0 [...] Performing Lab: see note ML - [facility] LB Blood Culture 2 Reviewed date:03/28/2024 10:01:42 PM Interpretation: Performing Lab: Notes/Report: [facility] , Blood Culture 2 See Below For Report Blood Culture 2 NG5D NO GROWTH AT 5 DAYS.^NO GROWTH AT 5 DAYS. Performing Lab: see note ML - [facility] LB US right upper quadrant Reviewed date:03/25/2024 11:49:10 AM Interpretation: Performing Lab: Notes/Report: Source Facility: [facility] [place] [address] [place] [address] Ultrasound Report Signed Patient: SUSANNE PINZON MR#: [id number] : 1965 Acct:[id number] Age/Sex: 58 / F ADM Date: 03/22/24 Loc: MS 212-[address]: Jaja Parry M.D. Ordering Physician: Jaja Parry M.D. Date of Service: 03/23/24 Procedure(s): US right upper quadrant Accession Number(s): [id number] cc: Jaja Parry M.D. [address] [address] Patient Name: SUSANNE PINZON MRN: [id number] date: 1965 Sex: F Assigned Patient Location: MS Current Patient Location: MS Accession/Order Number: [id number] Exam Date: 03/23/2024 08:30 Report Date: 03/23/2024 [...] DAWSON Date: 03/23/2024 09:54 Dictated By: Monse Dwason M.D. Signed By: 03/23/24 0957 DD/ 0954 TD/TT: Photogrammetric Surveyor: [place] [address] Ultrasound Report Signed Patient: MADAN PINZON MR#: [id number] : 1965 Acct:[id number] Age/Sex: 58 / F ADM Date: 03/22/24 Loc: MS 212-[address]: Christal Parry M.D. Ordering Physician: Jaja Parry M.D. Date of Service: 03/23/24 Procedure(s): US rig ht upper quadrant Accession Number(s): [id number] cc: Jaja Parry M.D. The [address] [address] Patient Name: SUSANNE PINZON MRN: [id number] date: 1965 Sex: F Assigned Patient Location: MS Current Patient Loca tion: MS Accession/Order Numb er: [id number] Exam Date: 03/23/2024 08:30 Report Date: 03/23/2024 [...] Dictated By: Saad Dawson M.D. Signed By: 03/23/24 0957 DD/ TD/TT: Photogrammetric Surveyor: CBC AUTO DIFF Reviewed date:04/13/2024 01:06:56 PM Interpretation: Performing Lab: Notes/Report: [facility] , White Blood Count 7.4 4.0-11.0 [...] 3/uL Performing Lab: see note ML - [facility] LB LIPASE Reviewed date:04/13/2024 01:06:56 PM Interpretation: Performing Lab: Notes/Report: [facility] , Lipase 61.0 16.0-77.0 U/L Performing Lab: see note - [facility] LB PROF 14(COMP METB) Reviewed date:04/13/2024 01:06:56 PM Interpretation: Performing Lab: Notes/Report: [facility] , Sodium 133 136-145 mmol/L Potassium [...] Globulin Ratio 1.2 Performing Lab: see note [facility] CBC AUTO DIFF Reviewed date:04/15/2024 12:55:22 PM Interpretation: Performing Lab: Notes/Report: [facility] , White Blood Count 6.3 4.0-11.0 [...] 12.2 9.5-13.5 fL Performing Lab: see note [facility] UA RANDOM W or MICROSCOPIC Reviewed date:04/13/2024 01:06:56 PM Interpretation: Performing Lab: Notes/Report: [facility] , Color Urine LT. YELLOW YELLOW Clarity Urine CLEAR CLEAR Specific [place] Urine 1.020 1.005-1.025 pH Urine 5.5 5.0-9.0 [...] Culture Indicated NO Performing Lab: see note ML - [facility] LB CBC AUTO DIFF Reviewed date:06/13/2024 05:17:46 PM Interpretation: Performing Lab: Notes/Report: [facility] , White Blood Count 13.4 4.0-11.0 [...] Performing Lab: see note ML - [facility] LB FREE T3 Reviewed date:06/13/2024 05:17:46 PM Interpretation: Performing Lab: Notes/Report: [facility] , Free T3 2.12 2.18-3.98 pg/mL Performing Lab: see note - [facility] LB GLYCOHEMOGLOBIN A1C Reviewed date:06/13/2024 05:17:46 PM Interpretation: Performing Lab: Notes/Report: [facility] , Glycohemoglobin A1C 11.5 4.5-6.2 % ADA RECOMMENDED LIMIT 4.0 - 6.0 ADA THERAPEUTIC TARGET < 7.0 ACTION SUGGESTED > 7.0 Estimated Average Glucose 283 Performing Lab: see note ML - [facility] LB T4 Reviewed date:06/13/2024 05:17:46 PM Interpretation: Performing Lab: Notes/Report: [facility] , T4 Thyroxine 7.20 4.80-13.90 ug/dL Performing Lab: see note ML - [facility] LB TSH Reviewed date:06/13/2024 05:17:46 PM Interpretation: Performing Lab: Notes/Report: [facility] , Thyroid Stimulating Hormone 0.458 0.358-3.740 uIU/mL Performing Lab: see note ML - [facility] LB CBC AUTO DIFF Reviewed date:09/05/2024 01:05:35 PM Interpretation: Performing Lab: Notes/Report: [facility] , White Blood Count 7.7 4.0-11.0 10 3/uL Red Blood Count 4.27 4.20-5.40 10 6/uL Hemoglobin 13.3 12.0-16.0 g/dL Hematocrit 36.6 36.0-48.0 % Mean Corpuscular Volume 85.7 81.0-99.0 fL Mean Corpuscular Hemoglobin 31.1 26.7-34.0 pg Mean Corpuscular HGB Conc 36.3 29.9-35.2 g/dL Red Cell Distribution Width 12.3 11.0-15.0 % Platelet Count 190 150-450 10 3/uL Mean Platelet Volume 10.8 9.5-13.5 fL Neutrophils Percent Auto 85.2 43.0-75.0 % Lymphocytes Percent Auto 4.3 20.5-60.0 % Monocytes Percent Auto 9.8 1.7-12.0 % Eosinophils Percent Auto 0.1 0.9-7.0 % Basophils Percent Auto 0.3 0.2-2.0 % Immature Granulocytes Pct Auto 0.3 0.0-0.5 % Neutrophils Absolute Auto 6.6 1.4-6.5 10 3/uL Lymphocytes Absolute Auto 0.3 1.2-3.8 10 3/uL Monocytes Absolute Auto 0.8 0.3-0.8 10 3/uL Eosinophils Absolute Auto 0.0 0.0-0.7 10 3/uL Basophils Absolute Auto 0.0 0.0-0.1 10 3/uL Immature Granulocytes Abs Auto 0.02 0.00-0.03 10 3/uL Performing Lab: see note ML - [facility] LB LACTATE or LACTIC ACID Reviewed date:09/05/2024 01:05:35 PM Interpretation: Performing Lab: Notes/Report: [facility] , Lactate/Lactic Acid 1.5 0.4-2.0 mmol/L Performing Lab: see note ML - [facility] LB LIPASE Reviewed date:09/05/2024 01:05:35 PM Interpretation: Performing Lab: Notes/Report: [facility] , Lipase 23.0 16.0-77.0 U/L Performing Lab: see note ML - [facility] LB MAGNESIUM Reviewed date:09/05/2024 01:05:35 PM Interpretation: Performing Lab: Notes/Report: [facility] , Magnesium 1.3 1.8-2.4 mg/dL Performing Lab: see note - [facility] LB PROF 14(COMP METB) Reviewed date:09/05/2024 01:05:35 PM Interpretation: Performing Lab: Notes/Report: [facility] , Sodium 135 136-145 mmol/L Potassium 3.7 3.5-5.1 mmol/L Chloride 101 98-107 mmol/L Carbon Dioxide 19.7 21.0-32.0 mmol/L Anion Gap 18.0 Glucose 360 74-106 mg/dL Blood Urea Nitrogen 26.0 7.0-18.0 mg/dL Creatinine 1.28 0.55-1.02 mg/dL Estimated GFR ( Katty 52 >=60 mL/min/1.73m 2 Estimated GFR (Non- Tuyet 43 >=60 mL/min/1.73m 2 BUN Creatinine Ratio 20.3 Calcium 8.9 8.5-10.1 mg/dL Bilirubin Total 0.9 0.2-1.0 mg/dL Aspartate Amino Transferase 36 15-37 U/L Alanine Aminotransferase 48 14-59 U/L Alkaline Phosphatase 101 46-116 U/L Total Protein 7.1 6.4-8.2 g/dL Albumin Level 3.4 3.4-5.0 g/dL Globulin 3.7 Albumin Globulin Ratio 0.9 Performing Lab: see note ML - [facility] LB UA (CLEAN or CATCH) MANAGER COMPLETIONS or M ICRO IF IND. Reviewed date:09/05/2024 01:05:35 PM Interpretation: Performing Lab: Notes/Report: [facility] , Color Urine LT. YELLOW YELLOW Clarity Urine CLOUDY CLEAR Specific [place] Urine 1.020 1.005-1.025 pH Urine 6.0 5.0-9.0 Protein Urine 100 NEG/TRACE mg/dL Glucose Urine UA 100 NEGATIVE mg/dL Bilirubin Urine NEGATIVE NEGATIVE Ketones Urine NEGATIVE NEGATIVE mg/dL Blood Urine LARGE NEGATIVE Nitrite Urine NEGATIVE NEGATIVE Urobilinogen Urine 1.0 0.2-1.0 EU/dL Leukocyte Esterase Urine LARGE NEGATIVE Urine Microscopic Indicated YES Performing Lab: see note ML - [facility] LB URINE MICROSCOPIC ONLY Reviewed date:09/05/2024 01:05:35 PM Interpretation: Performing Lab: Notes/Report: [facility] , WBC Urine >100 NONE SEEN #/HPF RBC Urine 10-20 0-2 #/HPF Bacteria Urine LARGE NONE SEEN #/HPF Mucus Urine NONE SEEN NONE SEEN Squamous Epithelial Cell Urine RARE NONE/RARE #/LPF Crystals Seen? None Seen None Seen #/HPF Cast Seen? NONE SEEN NONE SEEN #/LPF Urine Culture Indicated YES[place] [place] Performing Lab: see note ML - [facility] LB Troponin I High Sensitivity Reviewed date:09/05/2024 01:05:35 PM Interpretation: Performing Lab: Notes/Report: [facility] , Troponin I High Sensitivity <4.0 4.0-51.3 pg/mL CUT-OFF POINTS HAVE BEEN ESTABLISHED BASED ON THE FOURTH UNIVERSAL DEFINITION OF MYOCARDIAL INFARCTION. THE UPPER REFERENCE LIMIT (URL) OF TROPONIN, DEFINED THE 99TH PERCENTILE OF cTnI DISTRIBUTION IN A REFERENCE POPULATION, HAS BEEN CONFIRMED THE DECISION THRESHOLD FOR [place] DIAGNOSIS. 99TH PERCENTILE = 51.4 PG/ML NOTE: HIGH-SENSITIVITY TROPONIN ASSAY IS NOT INTENDED TO BE USED IN ISOLATION BUT SHOULD BE INTERPRETED IN CONJUNCTION WITH OTHER DIAGNOSTIC AND CLINICAL INFORMATION. Performing Lab: see note ML - [facility] LB ECG 12 lead Reviewed date:09/05/2024 01:05:35 PM Interpretation: Performing Lab: Notes/Report: Source Facility: [facility] [place] [address] [place] [address] Electrocardiograph Report Draft Patient: SUSANNE PINZON MR#: [id number] : 1965 Acct:[id number] Age/Sex: 58 / F ADM Date: 09/05/24 Loc: ER Attending Dr: Ordering Physician: Vielka Curran Date of Service: 09/05/24 Procedure(s): ECG 12 lead Accession Number(s): [id number] cc: [facility] Test Date: 2024-09-05 Pat Name: SUSANNE PINZON Department: Room: - Gender: Female Silver Chaser: : 1965 Requested By: [id number] Order Number: [id number] Reading MD: Measurements Intervals [place] Rate: 103 P: 61 AK: 142 QRS: 41 QRSD: 90 T: 37 QT: 346 QTc: 406 Interpretive Statements 1120 Sinus tachycardia 9140 abnormal rhythm ECG No previous ECG available for comparison Dictated By: [employer] Signed By: DD/ 0832 TD/TT: Photogrammetric Surveyor: [place] [address] Electrocardiograph Report Draft Patient: MADAN PINZON MR#: [id number] : 1965 Acct:[id number] Age/Sex: 58 / F ADM Date: 09/05/24 Loc: ER Attending Dr: Ordering Physician: Vielka Curran Date of Service: 09/05/24 Procedure(s): ECG 12 lead Accession Number(s): [id number] cc: [facility] Test Date: 2024-09-05 Pat Name: SUSANNE PINZON Department: 25 Room: - Gender: Female Silver Chaser: : 1965 Requ ested By: [id number] Order Number: [id number] Reading MD: Measurements Intervals [place] Rate: 103 P: 61 AK: 142 QRS: 41 QRSD: 90 T: 37 QT: 346 QTc: 406 Interpretive Statements 1120 Sinus tachycardia 9140 abnormal rhy thm ECG No previous ECG avai lable for comparison Dictated By: [employer] Signed By: DD/ 0832 TD/TT: Photogrammetric Surveyor: CT abdomen pelvis wo con Reviewed date:09/05/2024 01:05:35 PM Interpretation: Performing Lab: Notes/Report: Source Facility: [place] [address] CT Scan Report Signed Patient: SUSANNE PINZON MR#: [id number] : 1965 Acct:[id number] Age/Sex: 58 / F ADM Date: 09/05/24 Loc: ER Attending Dr: Ordering Physician: Vielka Curran Date of Service: 09/05/24 Procedure(s): CT abdomen pelvis wo con Accession Number(s): [id number] cc: Jaja Parry M.D. [place] [address] Patient Name: SUSANNE PINZON MRN: [id number] date: 1965 Sex: F Assigned Patient Location: ER Current Patient Location: ER Accession/Order Number: [id number] Exam Date: 09/05/2024 10:22 Report Date: 09/05/2024 10:25 At the request of: VIELKA CURRAN MD Procedure: CT abdomen pelvis wo con CT ABDOMEN AND PELVIS WITHOUT INTRAVENOUS CONTRAST: CLINICAL HISTORY: Acute nausea vomiting chills diarrhea for 2 weeks. COMPARISON: None TECHNIQUE: Spiral images were obtained through the abdomen and pelvis without intravenous contrast. This CT exam was performed using one or more following dose reduction techniques: Automated exposure control, adjustment of the mA and/or kV according to patient size, or use of iterative reconstruction technique. FINDINGS: Lung Bases: [Bibasilar scarring] Organs:Suboptimal evaluation due to lack of the contrast. Liver gallbladder pancreas spleen and adrenal glands all appear unremarkable. Kidneys demonstrate no stone or hydronephrosis. Abdominal aorta appears normal in caliber.[ GI: Stomach is grossly unremarkable. Small bowel appears nondilated. Appendix is normal. No acute colonic abnormality.[ Pelvis:[Urinary bladder and prostate gland appear unremarkable.] Peritoneum/Retroperitoneum:No free air free fluid or lymphadenopathy.[ Abd wall/Bones:Abdominal wall demonstrate no acute findings. Osseous structures demonstrate degenerative change.[ CT/CT abdomen pelvis wo con IMPRESSION: No acute process. Impression dictated by: Freedom Foster Jr., D.O. 09/05/2024 10:25 AM Dictation Location: [place] [address] Electronically authenticated by: [id number] Y Date: 09/05/2024 10:25 Dictated By: Freedom Foster M.D. Signed By: 09/05/24 1027 DD/ 1025 TD/TT: Photogrammetric Surveyor: [place] [address] CT Scan Report Signed Patient: MADAN PINZON MR#: [id number] : 1965 Acct:[id number] Age/Sex: 58 / F ADM Date: 09/05/24 Loc: ER Attending Dr: Ordering Physician: Vielka Curran Date of Service: 09/05/24 Procedure(s): CT abd omen pelvis wo con Accession Number(s): [id number] cc: Jaja Parry M.D. [place] [id number] Patient Name: SUSANNE PINZON MRN: [id number] date: 1965 Sex: F Assigned Patient Location: ER Current Patient Loca tion: ER Accession/Order Numb er: [id number] Exam Date: 09/05/2024 10:22 Report Date: 09/05/2024 10:25 At the request of: VIELKA CURRAN MD Procedure: CT abdome n pelvis wo con CT ABDOMEN AND PELVI S WITHOUT INTRAVENOUS CONTRAST: CLINICAL HISTORY: [place] nausea vomiting chills diarrhea for 2 weeks. COMPARISON: None TECHNIQUE: Spiral im ages were obtained through the abdomen and pelvis without intravenous contrast . This CT exam was performed using one or more following dose reduction techniques: Automated exposure control, adjustment of the mA and/or kV according to patient size, or use of iterative reconstruction technique. FINDINGS: Lung Bases: [Bibasil ar scarring] Organs:Suboptimal evaluation due to lack of the contrast. Liver gallbladder pancreas spleen and adrenal glands all appear unremarkable. Kidneys demonstrate no stone or hydronephrosis. Abdominal aorta appears normal in caliber.[ GI: Stomach is gross ly unremarkable. Small bowel appears nondilated. Appendix is normal. No acute colonic abnormality.[ Pelvis:[Urinary blad anjelica and prostate gland appear unremarkable.] Peritoneum/Retroperi toneu m:No free air free fluid or lymphadenopathy.[ Abd wall/Bones:Abdom inal wall demonstrate no acute findings. Osseous structures demonstra te degenerative change.[ C T/CT abdomen pelvis wo con IMPRESSION: No acute process. Impression dictated by: Durga Chandra Jr.OXiomy 09/05/2024 10:25 AM Dictation Location: [place] [address] Electronically authenticated by: [id number] Y Date: 09/05/2024 10:25 Dictated By: Freedom Foster M.D. Signed By: 09/05/24 1027 DD/ 1025 TD/TT: Photogrammetric Surveyor: MM tomosynthesis screening B I Reviewed date:08/26/2024 04:31:10 PM Interpretation: Performing Lab: Notes/Report: Source Facility: [place] [address] Mammography Report Signed Patient: SUSANNE PINZON MR#: [id number] : 1965 Acct:[id number] Age/Sex: 58 / F ADM Date: 08/24/24 Loc: MAMMO Attending Dr: Jaja Parry M.D. Ordering Physician: Jaja Parry M.D. Results: Date of Service: 08/24/24 Follow Up: Procedure(s): MM tomosynthesis screening BI Accession Number(s): [id number] cc: Jaja Parry M.D. Patient Name: SUSANNE PINZON MR#: [id number] : 1965 Exam Date: 08/24/2024 Ordering Doctor: [...] melanoma cancer at age 68. LOCATION: [facility] BREAST COMPOSITION: There are scattered areas [...] Signed By: 08/24/24 1044 DD/ 1043 TD/TT: Photogrammetric Surveyor: [place] [address] Mammography Report Signed Patient: MADAN PINZON MR#: [id number] : 1965 Acct:[id number] Age/Sex: 58 / F ADM Date: 08/24/24 Loc: MAMMO Attending Dr: Christal Parry M.D. Ordering Physician: Jaja Parry M.D. Results: Date of Service: 01/08 Follow Up: Procedure(s): MM tomosynthesis screening BI Accession Number(s): [id number] cc: Jaja Parry M.D. Patient Name: SUSANNE PINZON MR#: [id number] : 1965 Exam Date: 08/24/2024 Ordering Doctor: [...] cancer at age 68. LOCATION: [facility] BREAST COMPOSITION: There are scattered areas of [...] Signed By: 08/24/24 1044 DD/ 1043 TD/TT: Photogrammetric Surveyor: VITAMIN D 25 [place] Reviewed date:06/13/2024 05:17:46 PM Interpretation: Performing Lab: Notes/Report: [facility] , Vitamin D 44.7 <20 ng/mL Vit D deficient 20-<30 ng/mL Vit D insufficient 30-100 ng/mL Vit D sufficient >100 ng/mL Potential Toxicity Performing Lab: see note ML - [facility] LB PROF 14(COMP METB) Reviewed date:06/13/2024 05:17:46 PM Interpretation: Performing Lab: Notes/Report: [facility] , Sodium 137 136-145 mmol/L Potassium [...] Globulin Ratio 1.3 Performing Lab: see note ML - [facility] LIPID PROFILE Reviewed date:06/13/2024 05:17:46 PM Interpretation: Performing Lab: Notes/Report: [facility] , Triglycerides 309 <=150 mg/dL Cholesterol [...] >11.0 HIGH RISK Performing Lab: see note ML - [facility] LB IRON Reviewed date:06/13/2024 05:17:46 PM Interpretation: Performing Lab: Notes/Report: [facility] , Iron 54.0 50.0-170.0 ug/dL Performing Lab: see note ML - [facility] LB NM leilani perf SPECT rest str Reviewed date:04/25/2024 06:39:09 PM Interpretation: Performing Lab: Notes/Report: Source Facility: [facility]-[address] [place] [address] [place] [address] Nuclear Medicine Report Signed Patient: SUSANNE PINZON MR#: [id number] : 1965 Acct:[id number] Age/Sex: 58 / F ADM Date: 04/20/24 Loc: CARD Attending Dr: Jaja Parry M.D. Ordering Physician: Jaja Parry M.D. Date of Service: 04/20/24 Procedure(s): NM leilani perf SPECT rest str Accession Number(s): [id number] cc: Jaja Parry M.D. Patient Name: SUSANNE PINZON MR#: [id number] : 1965 Exam Date: 04/20/2024 Ordering Doctor: [...] the study was pending per attending physician [facility] . For more details please see [...] Signed By: 04/25/24 1224 DD/ 1223 TD/TT: Photogrammetric Surveyor: [place] [address] Nuclear Medicine Report Signed Patient: MADAN PINZON MR#: [id number] : 1965 Acct:[id number] Age/Sex: 58 / F ADM Date: 04/20/24 Loc: CARD Attending Dr: Christal Parry M.D. Ordering Physician: Jaja Parry M.D. Date of Service: 04/20/24 Procedure(s): NM leilani perf SPECT rest str Accession Number(s): [id number] cc: Jaja Parry M.D. Patient Name: SUSANNE PINZON MR#: [id number] : 1965 Exam Date: 04/20/2024 Ordering Doctor: [...] study was pending pe r attending physician [facility] . For more details please see [...] Signed By: 04/25/24 1224 DD/ 1223 TD/TT: Photogrammetric Surveyor: QIAN echo doppler complete Reviewed date:04/22/2024 10:20:54 AM Interpretation: Performing Lab: Notes/Report: Source Facility: [facility]-[address] [place] [address] Cardiology Report Signed Patient: SUSANNE PINZON MR#: [id number] : 1965 Acct:[id number] Age/Sex: 58 / F ADM Date: 04/20/24 Loc: CARD Attending Dr: Jaja Parry M.D. Ordering Physician: Jaja Parry M.D. Date of Service: 04/20/24 Procedure(s): CA echo doppler complete Accession Number(s): [id number] cc: Jaja Parry M.D. Patient Name: SUSANNE PINZON MR#: [id number] : 1965 Exam Date: 04/20/2024 Ordering Doctor: [...] BARAJAS Signed By: 04/20/241726 DD/ 25 TD/TT: Photogrammetric Surveyor: [place] [address] Cardiology Report Signed Patient: MADAN PINZON MR#: [id number] : 1965 Acct:[id number] Age/Sex: 58 / F ADM Date: 04/20/24 Loc: CARD Attending Dr: Christal Parry M.D. Ordering Physician: Jaja Parry M.D. Date of Service: 04/20/24 Procedure(s): CA ech o doppler complete Accession Number(s): [id number] cc: Jaja Parry M.D. Patient Name: SUSANNE PINZON MR#: [id number] : 1965 Exam Date: 04/20/2024 Ordering Doctor: [...] mobility. No stenosis. Trivial regurgitation. PERICARDIUM: No celestine dence of pericardial effusion. IVC: Not well visualized. [...] BARAJAS Signed By: 04/20/241726 DD/ 25 TD/TT: Photogrammetric Surveyor: Venous Blood Gas Reviewed date:04/15/2024 12:55:22 PM Interpretation: Performing Lab: Notes/Report: [facility] , pH VBG 7.389 7.330-7.430 PCO2 VBG 38.1 40.0-52.0 mmHg Performing Lab: see note ML - [facility] LB Manual Differential Reviewed date:04/15/2024 12:55:22 PM Interpretation: Performing Lab: Notes/Report: [facility] , Segmented Neutrophils % Manual 94.0 [...] 1 0 3/uL Performing Lab: see note ML - [facility] LB PROF 14(COMP METB) Reviewed date:04/15/2024 12:55:22 PM Interpretation: Performing Lab: Notes/Report: [facility] , Sodium 135 136-145 mmol/L Potassium [...] 1.2 Performing Lab: see note ML - [facility] LB LIPASE Reviewed date:04/15/2024 12:55:22 PM Interpretation: Performing Lab: Notes/Report: [facility] , Lipase 31.0 16.0-77.0 U/L Performing Lab: see note ML - [facility] LB LACTATE or LACTIC ACID Reviewed date:04/15/2024 12:55:22 PM Interpretation: Performing Lab: Notes/Report: [facility] , Lactate/Lactic Acid 1.5 0.4-2.0 mmol/L Performing Lab: see note ML - [facility] LB Blood Culture 1 Reviewed date:03/28/2024 10:01:42 PM Interpretation: Performing Lab: Notes/Report: [facility] , Blood Culture 1 See Below For Report Blood Culture 1 NG5D NO GROWTH AT 5 DAYS.^NO GROWTH AT 5 DAYS. Performing Lab: see note ML - [facility] LB PROF CHEM 8 (BAS METB) Reviewed date:03/23/2024 08:52:54 AM Interpretation: Performing Lab: Notes/Report: [facility] , Sodium 136 136-145 mmol/L Potassium [...] mg/dL Performing Lab: see note ML - [facility] LB LACTATE or LACTIC ACID Reviewed date:03/23/2024 08:52:54 AM Interpretation: Performing Lab: Notes/Report: N [facility] , Lactate/Lactic Acid 1.6 0.4-2.0 mmol/L Performing Lab: see note ML - [facility] LB SARS-CoV-2 Ag* Reviewed date:03/22/2024 06:44:51 PM Interpretation: Performing Lab: Notes/Report: [facility] , SARS-CoV-2 Ag NEGATIVE NEGATIVE This [...] Performing Lab: see note ML - [facility] LB LACTATE or LACTIC ACID Reviewed date:03/23/2024 08:52:54 AM Interpretation: Performing Lab: Notes/Report: [facility] , Lactate/Lactic Acid 2.6 0.4-2.0 mmol/L RESULTS CALLED TO Justina Hunter RN @[facility] [place] at 0023 Performing Lab: see note ML - [facility] LB INFLUENZA A AND B AG Reviewed date:03/22/2024 06:44:51 PM Interpretation: Performing Lab: Notes/Report: [facility] , Influenza Virus A Antigen Negative [...] Performing Lab: see note ML - [facility] LB CBC AUTO DIFF Reviewed date:03/22/2024 06:44:51 PM Interpretation: Performing Lab: Notes/Report: [facility] , White Blood Count 11.3 4.0-11.0 [...] Performing Lab: see note ML - [facility] LB XR chest 1V Reviewed date:03/21/2024 05:16:30 PM Interpretation: Performing Lab: Notes/Report: Source Facility: [facility] [place] [address] [address] XRay Report Signed Patient: SUSANNE PINZON MR#: [id number] : 1965 Acct:[id number] Age/Sex: 58 / F ADM Date: 03/21/24 Loc: ER Attending Dr: Ordering Physician: Jenna Frost Date of Service: 03/21/24 Procedure(s): XR chest 1V Accession Number(s): [id number] cc: Jaja Parry M.D.; Jenna Frost [place] [id number] Patient Name: SUSANNE PINZON MRN: [id number] date: 1965 Sex: F Assigned Patient Location: ER Current Patient Location: ER Accession/Order Number: [id number] Exam Date: 03/21/2024 14:12 Report Date: 03/21/2024 [...] Signed By: 03/21/24 1436 DD/ 1433 TD/TT: Photogrammetric Surveyor: [place] [address] XRay Report Signed Patient: MADAN PINZON MR#: [id number] : 1965 Acct:[id number] Age/Sex: 58 / F ADM Date: 03/21/24 Loc: ER Attending Dr: Ordering Physician: Jenna Frost Date of Service: 03/21/24 Procedure(s): XR chest 1V Accession Number(s): [id number] cc: Jaja Parry M.D. ; Jenna Frost [place] [address] Patient Name: SUSANNE PINZON MRN: [id number] date: 1965 Sex: F Assigned Patient Location: ER Current Patient Loca tion: ER Accession/Order Numb er: [id number] Exam Date: 03/21/2024 14:12 Report Date: 03/21/2024 [...] Signed By: 03/21/24 143 DD/ 32 TD/TT: Photogrammetric Surveyor: ECG 12 lead Reviewed date:03/23/2024 08:52:54 AM Interpretation: Performing Lab: Notes/Report: Source Facility: [place] [address] Electrocardiograph Report Signed Patient: SUSANNE PINZON MR#: [id number] : 1965 Acct:[id number] Age/Sex: 58 / F ADM Date: 03/21/24 Loc: ER Attending Dr: Ordering Physician: Jenna Frost Date of Service: 03/21/24 Procedure(s): ECG 12 lead Accession Number(s): [id number] cc: [facility] Test Date: 2024-03-21 Pat Name: SUSANNE PINZON Department: Room: - Gender: Female Silver Chaser: : 1965 Requested By: JAJA PARRY Order Number: [id number] Reading : JAJA PARRY Measurements Intervals [place] Rate: 66 P: 68 AK: 154 QRS: 48 QRSD: 84 T: 52 QT: 396 QTc: 410 Interpretive Statements 1100 Sinus rhythm 9110 normal ECG Compared to ECG 03/17/2024 15:43:21 No significant changes Electronically Signed On 03-23-2024 6:26:48 EST by JAJA PARRY Dictated By: Jaja Parry M.D. Signed By: 03/23/24625 DD/ 56 TD/TT: Photogrammetric Surveyor: [place] [address] Electrocardiograph Report Signed Patient: MADAN PINZON MR#: [id number] : 1965 Acct:[id number] Age/Sex: 58 / F ADM Date: 03/21/24 Loc: ER Attending Dr: Ordering Physician: Jenna Frost Date of Service: 03/21/24 Procedure(s): ECG 12 lead Accession Number(s): [id number] cc: [facility] Test Date: 2024-03-21 Pat Name: SUSANNE PINZON Department: 25 Room: - Gender: Female Silver Chaser: : 1965 Requ ested By: JAJA PARRY Order Number: [id number] Reading MD: JAJA PARRY Measurements Intervals [place] Rate: 66 P: 68 AK: 154 QRS: 48 QRSD: 84 T: 52 QT: 396 QTc: 410 Interpretive Statements 1100 Sinus rhythm 9110 normal ECG Compared to ECG 03/17/2024 15:43:21 No significant changes Electronically Shandra d On 03-23-2024 6:26:48 EST by JAJA PARRY Dictated By: Linnea Parry M.D. Signed By: 03/23/24625 DD/ 135 TD/TT: Photogrammetric Surveyor: SARS-CoV-2 Ag* Reviewed date:03/21/2024 05:16:30 PM Interpretation: Performing Lab: Notes/Report: [facility] , SARS-CoV-2 Ag NEGATIVE NEGATIVE This [...] sooner. Performing Lab: see note ML - [facility] LB Erythrocyte Sedimentation Ra te Reviewed date:03/21/2024 05:16:30 PM Interpretation: Performing Lab: Notes/Report: [facility] , Erythrocyte Sedimentation Rate 14 <=30 mm/hr Performing Lab: see note ML - [facility] LB Prothrombin Time INR Reviewed date:03/21/2024 05:16:30 PM Interpretation: Performing Lab: Notes/Report: [facility] , Prothrombin Time 11.1 9.0-11.6 sec INR 1.05 DESIRED INR: 2.0-3.0 CONDITIONS NOT LISTED BELOW 2.5-3.5 FOR PROSTHETIC HEART VALVE REPLACEMENT 2.5-3.5 RECURRENT THROMBOSIS Performing Lab: see note ML - [facility] LB LIPASE Reviewed date:03/21/2024 05:16:30 PM Interpretation: Performing Lab: Notes/Report: [facility] , Lipase 40.0 16.0-77.0 U/L Performing Lab: see note ML - [facility] LB LACTATE or LACTIC ACID Reviewed date:03/21/2024 05:16:30 PM Interpretation: Performing Lab: Notes/Report: [facility] , Lactate/Lactic Acid 2.6 0.4-2.0 mmol/L RESULT S CALLED TO JENNA SERRANO AT 1458 Performing Lab: see note ML - [facility] LB INFLUENZA A AND B AG Reviewed date:03/21/2024 05:16:30 PM Interpretation: Performing Lab: Notes/Report: [facility] , Influenza Virus A Antigen Negative [...] of the test. Performing Lab: see note - [facility] LB Troponin I High Sensitivity Reviewed date:03/18/2024 04:31:56 PM Interpretation: Performing Lab: Notes/Report: [facility] , Troponin I High Sensitivity 5.0 4.0-51.3 pg/mL CUT-OFF POINTS HAVE BEEN ESTABLISHED BASED ON THE FOURTH UNIVERSAL DEFINITION OF MYOCARDIAL INFARCTION. THE UPPER REFERENCE LIMIT (URL) OF TROPONIN, DEFINED THE 99TH PERCENTILE OF cTnI DISTRIBUTION IN A REFERENCE POPULATION, HAS BEEN CONFIRMED THE DECISION THRESHOLD FOR OK DIAGNOSIS. 99TH PERCENTILE = 51.4 PG/ML NOTE: HIGH-SENSITIVITY TROPONIN ASSAY IS NOT INTENDED TO BE USED IN ISOLATION BUT SHOULD BE INTERPRETED IN CONJUNCTION WITH OTHER DIAGNOSTIC AND CLINICAL INFORMATION. Performing Lab: see note - [facility] LB CT angio chest Reviewed date:03/18/2024 04:31:56 PM Interpretation: Performing Lab: Notes/Report: Source Facility: [place] [address] CT Scan Report Signed Patient: SUSANNE PINZON MR#: [id number] : 1965 Acct:[id number] Age/Sex: 58 / F ADM Date: 03/17/24 Loc: ER Attending Dr: Ordering Physician: Vielka Curran Date of Service: 03/17/24 Procedure(s): CT angio chest Accession Number(s): [id number] cc: Jaja Parry M.D. [place] [address] Patient Name: SUSANNE PINZON MRN: [id number] date: 1965 Sex: F Assigned Patient Location: ER Current Patient Location: ED.MAIN Accession/Order Number: [id number] Exam Date: 03/17/2024 17:12 Report Date: 03/17/2024 [...] M.D. Signed By: 03/17/241916 DD/ 13 TD/TT: Photogrammetric Surveyor: [place] [address] CT Scan Report Signed Patient: MADAN PINZON MR#: [id number] : 1965 Acct:[id number] Age/Sex: 58 / F ADM Date: 03/17/24 Loc: ER Attending Dr: Ordering Physician: Vielka Curran Date of Service: 03/17/24 Procedure(s): CT ang io chest Accession Number(s): [id number] cc: Jaja Parry M.D. [place] [address] Patient Name: SUSANNE PINZON MRN: [id number] date: 1965 Sex: F Assigned Patient Location: ER Current Patient Loca tion: ED.MAIN Accession/Order Numb er: [id number] Exam Date: 03/17/2024 17:12 Report Date: 03/17/2024 [...] No suspicious lesions. UPPER ABDOMEN: No [place] finding MEDIASTINUM AND MUNA : Small hiatal [...] M.D. Signed By: 03/17/241916 DD/ 13 TD/TT: Photogrammetric Surveyor: WILLIAM chest 1V Reviewed date:03/17/2024 05:05:33 PM Interpretation: Performing Lab: Notes/Report: Source Facility: [facility], [place] [address] XRay Report Signed Patient: SUSANNE PINZON MR#: [id number] : 1965 Acct:[id number] Age/Sex: 58 / F ADM Date: 03/17/24 Loc: ER Attending Dr: Ordering Physician: Vielka Curran Date of Service: 03/17/24 Procedure(s): XR chest 1V Accession Number(s): [id number] cc: Jaja Parry M.D.; Vielka Curran [place] [address] Patient Name: SUSANNE PINZON MRN: [id number] date: 1965 Sex: F Assigned Patient Location: ER Current Patient Location: ER Accession/Order Number: [id number] Exam Date: 03/17/2024 16:00 Report Date: 03/17/2024 [...] chest is essentially unchanged. Electronically authenticated by: NAMIAT IBARRA Date: 03/17/2024 16:56 Dictated By: Namita Ibarra M.D. Signed By: 03/17/24 1658 DD/ TD/TT: Photogrammetric Surveyor: [place] [address] XRay Report Signed Patient: MADAN PINZON MR#: [id number] : 1965 Acct:[id number] Age/Sex: 58 / F ADM Date: 03/17/24 Loc: ER Attending Dr: Ordering Physician: Vielka Curran Date of Service: 03/17/24 Procedure(s): XR chest 1V Accession Number(s): [id number] cc: Jaja Parry M.D. ; Vielka Curran [facility] [place] [id number] Patient Name: SUSANNE PINZON MRN: [id number] date: 1965 Sex: F Assigned Patient Location: ER Current Patient Loca tion: ER Accession/Order Numb er: [id number] Exam Date: 03/17/2024 16:00 Report Date: 03/17/2024 [...] M.D. Signed By: 03/17/241657 DD/ 55 TD/TT: Photogrammetric Surveyor: Troponin I High Sensitivity Reviewed date:03/17/2024 04:42:02 PM Interpretation: Performing Lab: Notes/Report: [facility] , Troponin I High Sensitivity <4.0 4.0-51.3 pg/mL CUT-OFF POINTS HAVE BEEN ESTABLISHED BASED ON THE FOURTH UNIVERSAL DEFINITION OF MYOCARDIAL INFARCTION. THE UPPER REFERENCE LIMIT (URL) OF TROPONIN, DEFINED THE 99TH PERCENTILE OF cTnI DISTRIBUTION IN A REFERENCE POPULATION, HAS BEEN CONFIRMED THE DECISION THRESHOLD FOR [place] DIAGNOSIS. 99TH PERCENTILE = 51.4 PG/ML NOTE: HIGH-SENSITIVITY TROPONIN ASSAY IS NOT INTENDED TO BE USED IN ISOLATION BUT SHOULD BE INTERPRETED IN CONJUNCTION WITH OTHER DIAGNOSTIC AND CLINICAL INFORMATION. Performing Lab: see note ML - [facility] LB Prothrombin Time INR Reviewed date:03/17/2024 04:42:02 PM Interpretation: Performing Lab: Notes/Report: [facility] , Prothrombin Time 10.6 9.0-11.6 sec INR 1.00 DESIRED INR: 2.0-3.0 CONDITIONS NOT LISTED BELOW 2.5-3.5 FOR PROSTHETIC HEART VALVE REPLACEMENT 2.5-3.5 RECURRENT THROMBOSIS Performing Lab: see note - [facility] PROF 14(COMP METB) Reviewed date:03/17/2024 04:42:02 PM Interpretation: Performing Lab: Notes/Report: [facility] , Sodium 134 136-145 mmol/L Potassium [...] Globulin Ratio 1.1 Performing Lab: see note - [facility] BNP Reviewed date:03/17/2024 04:42:02 PM Interpretation: Performing Lab: Notes/Report: [facility] , NT Pro B Type Natriuretic Pept 18.0 <=900.0 pg/mL Performing Lab: see note ML - [facility] TSH Reviewed date:11/29/2023 06:13:59 PM Interpretation: Performing Lab: Notes/Report: [facility] , Thyroid Stimulating Hormone 2.436 0.358-3.740 uIU/mL Performing Lab: see note - [facility] FREE T4 Reviewed date:11/29/2023 06:13:59 PM Interpretation: Performing Lab: Notes/Report: [facility] , Free T4 1.08 0.76-1.46 ng/dL Performing Lab: see note ML - [facility] LB US venous doppler LE BI Reviewed date:10/23/2023 08:57:55 PM Interpretation: Performing Lab: Notes/Report: Source Facility: [facility]-[address] [place] [address] [place] [address] Ultrasound Report Signed Patient: SUSANNE PINZON MR#: [id number] : 1965 Acct:[id number] Age/Sex: 58 / F ADM Date: 10/21/23 Loc: US Attending Dr: Jaja Parry M.D. Ordering Physician: Jaja Parry M.D. Date of Service: 10/21/23 Procedure(s): US venous doppler LE RT Accession Number(s): [id number] cc: Jaja Parry M.D. The [place] [address] Patient Name: SUSANNE PINZON MRN: [id number] date: 1965 Sex: F Assigned Patient Location: US Current Patient Location: US Accession/Order Number: [id number] Exam Date: 10/21/2023 17:15 Report Date: 10/21/2023 [...] M.D. Signed By: 10/21/231943 DD/ 41 TD/TT: Photogrammetric Surveyor: The [place] [id number] Ultrasound Report Signed Patient: MADAN PINZON MR#: [id number] : 1965 Acct:[id number] Age/Sex: 58 / F ADM Date: 10/21/23 Loc: US Attending Dr: Christal Parry M.D. Ordering Physician: Jaja Parry M.D. Date of Service: 10/21/23 Procedure(s): US vj ous doppler LE RT Accession Number(s): [id number] cc: Jaja Parry M.D. [place] [id number] Patient Name: SUSANNE PINZON MRN: [id number] date: 1965 Sex: F Assigned Patient Location: US Current Patient Loca tion: US Accession/Order Numb er: [id number] Exam Date: 10/21/2023 17:15 Report Date: 10/21/2023 19:42 At the request of: JAJA PARRY Procedure: US venous doppler LE RT EXAM: US venous dopp ler LE RT HISTORY: Localized E mihir, R50.0 COMPARISON: None. TECHNIQUE: Multiple sonographic images of the deep veins of the right lower extremity were obtai geanro, supplemented with Doppler. FINDINGS: The deep v [...] M.D. Signed By: 10/21/231943 DD/ 41 TD/TT: Photogrammetric Surveyor: Reason For Referral No Information Medications Medication SIG (Take, Route, Frequency, Duration) Notes Start Date End Date Status Multivitamin Active Pen Salt Flat 31G X 6 MM Use 5 needles kvng ly to inject Insulin DX E11.9 for 30 days Active Magnesium Oxide 400 MG 1 tablet with trish d Orally Once a day 09/06/2024 Active Metoprolol Tartrate 50 MG 1 tablet with food Orally Twice a day for 30 days 03/19/2024 Active Blood Glucose Monitor System w/Device use device Dx:E11.9 daily to monitor blood glucose level 03/28/2024 Active Tart Thapa Active Cyclobenzaprine HCl 10 MG 1 tablet Orall y tid for 30 days 06/18/2024 Active Test Strips - Dx: 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 Once daily for 90 days 03/28/2024 Active Protonix 40 MG 1 tablet Orally Once a day for 30 days 03/23/2024 Active Acetaminophen-Codeine 300-30 MG 1 tablet as needed Orally every 6 hrs for 7 days 08/28/2024 Active Simvastatin 20 MG 1 tablet Orally Once a day for 90 days Active Cymbalta 60 MG 1 capsule Orally Onc e a day for 30 days 07/11/2024 Active Diclofenac Sodium 3 % 1 application Exte rnally Twice a day 07/16/2024 Active MAGnesium-Oxide 400 (240 Mg) MG 1 tablet with food Orally bid for 30 days 09/06/2024 Active Lantus SoloStar 100 UNIT/ML Inject 60 un its Subcutaneous once daily for 50 days Active levoFLOXacin 750 MG 1 tablet Orally Once a day for 10 day(s) 09/06/2024 Active Triamcinolone Acetonide 0.1 % External for 14 Days Active Social History Tobacco Use: Social History [...] User Light cigarett e smoker ((1-9 cigs/day) Problems Problem Type SNOMED Code ICD Code Onset Dates Problem Status W/U Status Risk Notes Problem 38106549 Obstructive slee p apnea (adult) (pediatric) (G47.33) Active confirmed Problem Fibromyalgia (172443665) Fibromyalgia (M79.7) Active confirmed Problem 368207139 Unspecified tear of unspecified meniscus, current injury, left knee, initial encounter (S83.207A) Active confirmed Problem Hyperlipidemia (37141851) Hyperlipidemia (E78.5) Active confirmed Problem Osteoarthritis (707511398) Osteoarthritis (M19.90) Active confirmed Problem Anxiety (41970807) Anxiety (F41.9) Active confi rmed Problem Hypertriglyceridemia (344590365) Hypertriglyceridemia (E78.1) Active confirmed Problem Type II diabetes mellitus well controlled (538671842) Diabetes type 2, controlled (E11.9) Active confirmed Problem Diarrhea (57178419) Diarrhea (R19.7) Active con firmed Problem Acute bronchitis (64274715) Acute bronchitis (J20.9) Active confirmed Problem Fatty liver (882232477) Fatty liver (K76.0) Active confirmed Problem Well adult (956998497) Well adult (Z00.00) Active confirmed Problem Leg pain (18524035) Leg pain (M79.606) Active c onfirmed Problem Dysphagia (75949118) Dysphagia (R13.10) Active confirmed Problem Essential hypertension (47969885) Hypertension, uncontrolled (I10) Active confirmed Problem Erythrocytosis (429657316) Erythrocytosis (D75.1) Active confirmed Problem Acute sinusitis (03837136) Acute sinus infection (J01.90) Active confirmed Problem Gastroenteritis (17762625) Gastroenteritis (K52.9) Active confirmed Problem Overweight (464204826) Over weight (E66.3) Active confirmed Problem Leukocytosis (985902053) Leukocytosis (D72.829) Active confirmed Problem Hypertensive retinopathy (2884108) Hypertensive retinopathy (H35.039) Active confirmed Problem Shaky (R25.1) Active confirmed Problem Essential hypertension (37096865) Essential Hypertension (I10) Active confirmed Problem Bruising (560844685) Bruising (T14.8XXA) Active confirmed Problem Osteoarthritis of knee (707919841) Knee osteoarthritis (M17.10) Active confirmed Problem Hyperglycemia due to diabetes mellitus (026323762) Hyperglycemia due to diabetes mellitus (E11.65) Active confirmed Vital Signs Heart Rate 77 /min 04/09/2024 Oximetry 99 % 04/09/2024 Blood pressure diastolic 68 mm Hg 09/06/2024 Height 66 in 09/06/2024 Blood pressure systolic 116 mm Hg 09/06/2024 Weight 221.4 lbs 09/06/2024 BMI 35.73 kg/m2 09/06/2024 Procedures Procedure Date Ordered Date Performed Result Body Sit e CARDIO Echocardiogram 03/27/2024 N/A *CARDIO Stress Test - Lexiscan Nuclear 03/19/2024 N/A Encounters Encounter Location Date Provider Diagnosis [facility] [address] [place] [address] 08/26/2024 Quincy Gonzalezy [facility] [address] [place] [address] 09/05/2024 Quincy Gonzalezy Diabetes type 2, controlled E11.9 [facility] [address] [place] [address] 09/05/2024 Quincy Hoy [facility] [address] [place] [address] 07/11/2024 Quincy Hoy [facility] [address] [place] [place] [address] 07/19/2024 Quincy Hoy Over weight E66.3 [facility] [address] [place] [address] 07/23/2024 Quincy Hoy Over weight E66.3 [facility] [address] [place] [address] 08/06/2024 Quincy Hoy Knee osteoarthritis M17.10 [facility] [address] [place] [address] 08/10/2024 Quincy Hoy Over weight E66.3 [facility] [address] [place] [place] [address] 08/14/2024 Quincy Hoy [facility] [address] [place] [address] 06/04/2024 Quincy Hoy [facility] [address] [place] [address] 06/13/2024 Quincy Hoy Over weight E66.3 [facility] [address] [place] [address] 06/18/2024 Quincy Hoy [facility] [address] [place] [address] 06/22/2024 Quincy Hoy [facility] [address] [place] [address] 06/25/2024 Quincy Parry Essential Hypertensi on I10 [facility] [address] [place] [address] 06/26/2024 Quincy Sohan [facility] [address] [place] [address] 04/09/2024 Quincy Parry [facility] [address] [place] [address] 04/12/2024 Quincy Parry [facility] [address] [place] [address] 04/15/2024 Quincy Parry Essential Hypertensi on I10 [facility] [address] [place] [address] 04/22/2024 Quincy Parry [facility] [address] [place] [address] 04/25/2024 Quincy Parry [facility] [address] [place] [address] 04/30/2024 Quincy Parry [facility] [address] [place] [address] 03/21/2024 Quincy Parry [facility] [address] [place] [address] 03/23/2024 Quincy Parry [facility] [address] [place] [address] 03/25/2024 Quincy Parry Fatty liver K76.0 [facility] [address] [place] [address] 03/27/2024 Quincy Parry [facility] [address] [place] [address] 03/28/2024 Quincy Parry [facility] [address] [place] [address] 03/28/2024 Quincy Parry [facility] [address] [place] [address] 12/08/2023 Quincy Parry Leg pain M79.606 [facility] [address] [place] [place] [address] 12/23/2023 Quincy Parry [facility] [address] [place] [address] 12/26/2023 Quincy Parry [facility] [address] [place] [address] 01/17/2024 Quincy Parry [facility] [address] [place] [address] 03/20/2024 Quincy Parry [facility] [address] [place] [address] 03/21/2024 Quincy Parry [facility] [address] [place] [address] 10/21/2023 Quincy Parry Localized edema R60. [address] [place] [address] 10/23/2023 Quincy Parry [facility] [address] [place] [address] 11/28/2023 Quincy Parry Diabetes type 2, controlled E11.9 ; Hyperlipidemia E78.5 ; Other fatigue R53.83 and Encounter for screening for malignant neoplasm of colon Z12.11 [facility] [address] [place] [address] 11/29/2023 Quincy Parry [facility] [address] [place] [address] 09/06/2024 Quincy Parry UTI (urinary tract infection), uncomplicated N39.0 and Dysuria R30.[address] [address] 07/16/2024 Quincy Parry Well adult Z00.00 ; Obstructive sleep apnea (adult) (pediatric) G47.33 ; Essential Hypertension I10 ; Hyperlipidemia E78.5 ; Hyperglycemia due to diabetes mellitus E11.65 and Knee osteoarthritis M17.10 [facility] [address] [place] [address] 10/19/2023 Quincy Hoy Leg pain M79.[address] [address] 03/19/2024 Quincy Hoy Chest pain R07.[address] [address] 03/27/2024 Quincy Hoy Essential Hypertensi on I10 ; Diabetes type 2, controlled E11.9 and Dysphagia R13.[address] [address] 04/09/2024 Quincy Hoy Obstructive sleep ap nabor (adult) (pediatric) G47.33 and Acute bronchitis J20.[address] [address] 06/19/2024 Quincy Hoy Essential Hypertensi on I10 ; Hyperlipidemia E78.5 and Diabetes type 2, controlled E11.[address] [address] 03/22/2024 Quincy Hoy Abdominal pain 789.[address] [address] 06/12/2024 Quincy Hoy Over weight E66.3 ; Essential Hypertension I10 ; Diabetes type 2, controlled E11.9 ; Obstructive sleep apnea (adult) (pediatric) G47.33 ; Myalgia M79.10 and Arthralgia M25.[address] [address] 06/26/2024 Quincy Hoy Essential Hypertensi on I10 Assessments Encounter Date [...] E66.3) 06/12/2024 Essential Hypertension (ICD-10 - I10) 06/19/2024 Essential Hypertension (ICD-10 - I10) 06/19/2024 Hyperlipidemia (ICD-10 - E78.5) 06/26/2024 Essential Hypertension (ICD-10 - I10) 09/06/2024 UTI (urinary tract infection), uncomplicated (ICD-10 [...] until they are finished. You can use [id number] acetaminophen or ibuprofen if needed for pain. You should follow up with your Primary Care Physician or return to clinic if not improving in the next 3-5 days. 10/21/2023 Localized edema (ICD-10 - R60.0) 11/28/2023 [...] M17.10) 08/10/2024 Over weight (ICD-10 - E66.3) 09/05/2024 Diabetes type 2, controlled (ICD-10 - E11.9) 11/28/2023 Other fatigue (ICD-10 - R53.83) 09/06/2024 Dysuria (ICD-10 - R30.0) 06/19/2024 Diabetes type 2, controlled (ICD-10 - E11.9) 06/12/2024 Diabetes type 2, controlled (ICD-10 - [...] and PTT 03/25/2024 STOOL OCCULT BLOOD 06/12/2024 BNP 09/05/2024 CBC AUTO DIFF 11/28/2023 CBC AUTO DIFF 09/23/2022 GLYCOHEMOGLOBIN A1C 09/23/2022 LIPID PROFILE 09/23/2022 LIVER PROFILE 03/25/2024 THYROID PROFILE WITH TSH 11/28/2023 US VJ DOP LEG RT 10/21/2023 THYROID PANEL (T4/TSH/FREE T3) 5 *CARDIO Stress Test - Lexiscan Nuclear 0 03/19/2024 CMP (COMP MET CHAMBERLAIN) w/eGFR CKD-EPI 2024 CBC WITH DIFF 06/12/2024 Insurance Providers Payer Name Payer Address Payer Phone Subscriber Number Group Number Insured Name Patient Relationship to Insured Coverage Start Date Coverage End Date [employer] [address] [place] [address] [id number] Susanne Pinzon Self - patient is the insured Medications Administered Medication Instructions Date of Administration [...] Suicidal ideation R45.851 Surgical History Surgery Date(Month/Year) Exp. Lap 2009 LAST 2009 hysterectomy bilateral oophorectomy LT Knee nerve radiofrequency ablation- Dolores Nassar 07/12/2023 Hospitalization History Reason Date(Month/Year) Pleurisy, High BP 03/2024
[2024-09-06 16:49] VITALS: BP 126/74; PULSE 74; TEMP 36.7; O2SAT 95
[2024-09-06] MEDS: 0.9 % SODIUM CHLORIDE 1,000 ML 1000 ML IV (16:50)
== END 2024-09-13 23:59 | disposition home or self-care (01) ==
LOC: INF 16:19
PROVIDERS: PCP Family Medicine; Visit Provider Family Medicine
DX: E86.0 Dehydration (principal)
CPT/HCPCS: 96360; G0463

== ENCOUNTER 2024-09-06 17:55 | Emergency (ER) | payer MEDICAID, SELFPAY ==
--- OUTSIDE RECORDS SUMMARY | 2024-08-31 08:11 | XMS_ITS | Continuity of Care Document ---
Author Organization [facility] Address [address] [place] [address] Phone Care Team Providers Care Faucet Polisher Name Role Phone Leonie GRIJALVA, Dolly Unavailable Unavailable Allergies, Adverse Reactions, Alerts Substance Reaction Status Criticality CEPHALEXIN MONOHYDRATE Active No In formation Medications Medication Instructions Dosage Effective Dates (start - stop) Status Comments acetaminophen 300 mg-codeine 30 mg tablet TAKE 1 TABLET BY MOUTH EVERY 6 HOURS NEEDED - Active Lantus Solostar U-100 Insulin 100 unit/mL (3 mL) subcutaneous pen INJECT 60 UNITS SUBCUTANEOUSLY (UNDER THE SKIN) ONCE DAILY - Active duloxetine 60 mg capsule,delayed release - Active metoprolol tartrate 50 mg tablet - Active True Metrix Glucose Test Strip use to test BLOOD SUGAR DAILY - Active pantoprazole 40 mg tablet,delayed release TAKE 1 TABLET BY MOUTH ONCE DAILY - Active tramadol 50 mg tablet - Acti ve amitriptyline 50 mg tablet TAKE 1 TABLET BY MOUTH AT BEDTIME - Active clonidine HCl 0.1 mg tablet TAKE 1 TABLET BY MOUTH TWICE DAILY - Active simvastatin 20 mg tablet TAKE 1 TABLET B Y MOUTH DAILY - Active cyclobenzaprine 10 mg tablet TAKE 1 TABLET BY MOUTH THREE TIMES DAILY - Active orphenadrine citrate ER 100 mg tablet,extended release TAKE 1 TABLET BY MOUTH DAILY NEEDED FOR PAIN - Active nabumetone 500 mg tablet TAKE 2 TABLETS BY MOUTH TWICE DAILY - Active amoxicillin 875 mg-potassium clavulanate 125 mg tablet TAKE 1 TABLET BY MOUTH EVERY 12 HOURS FOR 10 DAYS - Active dicyclomine 20 mg tablet TAKE 1 TABLET B Y MOUTH THREE TIMES DAILY NEEDED FOR ABDOMINAL pain - Active docusate sodium 100 mg capsule TAKE 1 CAPSULE BY MOUTH TWICE DAILY - Active prochlorperazine maleate 10 mg tablet TAKE 1 TABLET BY MOUTH EVERY 12 HOURS NEEDED FOR NAUSEA AND VOMITING & headache - Active Promethegan 25 mg rectal suppository INSERT 1 SUPPOSITORY RECTALLY EVERY 6 HOURS NEEDED FOR NAUSEA AND VOMITING - Active triamcinolone acetonide 0.1 % topical cream APPLY to the affected area on the arms up to 2 (TWO) weeks NEEDED - Active sucralfate 1 gram tablet TAKE 1 TABLET B Y MOUTH BEFORE MEALS & TAKE 1 TABLET BY MOUTH AT BEDTIME - Active Unifine Pentips 31 gauge x 1/4 needle Use 5 needles daily to inject insulin - Active True Metrix Glucose Meter USE DIRECTED - Active levofloxacin 750 mg tablet TAKE 1 TABLET BY MOUTH DAILY - Active ondansetron 4 mg disintegrating tablet DISSOLVE 1 ON THE TONGUE EVERY 6 HOURS NEEDED FOR NAUSEA and FOR VOMITING - Active losartan 50 mg tablet TAKE 1 TABLET BY M OUTH DAILY - Active prednisone 20 mg tablet TAKE 2 TABLETS B Y MOUTH DAILY FOR 3 DAYS - Active insulin lispro (U-100) 100 unit/mL subcutaneous pen INJECT 3 (THREE) units SUBCUTANEOUSLY (UNDER THE SKIN) for blood sugar less than 140, 141-250= 6 (SIX) units, greater than 250 =9 units FOUR TIMES DAILY 40 days - Active glimepiride 4 mg tablet TAKE 1 TABLET BY MOUTH DAILY WITH BREAKFAST or WITH first main meal OF the day - Active omega-3 acid ethyl esters 1 gram capsule TAKE 4 CAPSULES BY MOUTH ONCE DAILY - Active doxycycline hyclate 50 mg capsule TAKE 1 CAPSULE BY MOUTH TWICE DAILY WITH FOOD - Active ciprofloxacin 500 mg tablet TAKE 1 TABLET BY MOUTH EVERY 12 HOURS - Active Procedures Procedure Date Oral Hygiene Instruction Post Op Visit Dental Oral Hygiene Instruction Extract; Erupted Th/exposted Rt 025 Extract; Erupted Th/exposted Rt 025 Bitewings Four Films Intraoral-periapical 1st Film Dcdwcmyrs-sjckvymyrs-lldd Additional Aug Dywmcdehh-jykdxhidqu-xmxp Additional Aug Comp Oral Eval New/estab Patient 2024 Advance Directives Directive Yes / No Effective Date File Name No Information Encounters Encounter Description Practice Location Reason(s) For Visit Diagnoses Date Provider Providers Copied on Encounter [facility], [address] [place] [address], [id number], tel:[phone] Dental Clinic Encounter for screening [email or web address] . tel:[phone] [facility], [address] [place] [address], [id number], [place] tel:[phone] Dental Clinic ext (chief complaint) Encounter for screening for [facility] disorders [facility] [email or web address] . tel:[phone] [facility], [address] [place] [address], [id number], tel:[phone] Dental Clinic DN (chief complaint) Body mass index [BMI] 36.0-36.9, adultEncounter for screening for dental disorders [email or web address] . tel:[phone] Family History Family Member Type Diagnosis Age At Onset No Information Payers Payer name Insurance type Covered democrat ID Authoriza tion(s) No Information Social History Type Description Quantity Date Captured Comments Sex Female Smoking Status No Information Chief Complaint And Reason For Visit No Information Reason For Referral Reason For Referral No Information Plan Of Treatment Date Type Action Status Goal Tdap. Due on due Goal Mammogram. Due on due Goal PRAPARE ASSESSMENT. Due on due Goal HPV. Due on due Goal FOBT. Due on due Goal CT-Colonography. Due on due Goal Zoster vaccine ( ). Due on due Goal Unhealthy drug u se screening. Due on due Goal Influenza vaccine. Due on due Goal Depression scree jaskaran. Due on due Goal Tdap Vaccine. Due on 2024 due Goal Lipid panel. Due on due Goal FIT-DNA. Due on due Goal FIT. Due on due Goal Colonoscopy. Due on due Goal Hepatitis C scre ening. Due on due Goal Unhealthy drug u se screening. Due on due Goal Hepatitis C scre ening. Due on due Goal Zoster vaccine ( ). Due on due Goal Colonoscopy. Due on due Goal Hep A. Due on du e Goal Tdap. Due on due Goal PRAPARE ASSESSMENT. Due on due Goal HPV. Due on due Goal Influenza vaccine. Due on due Goal Lipid panel. Due on due Goal Mammogram. Due on due Goal FIT. Due on due Goal Tdap Vaccine. Due on 2024 due Goal FOBT. Due on due Goal FIT-DNA. Due on due Goal CT-Colonography. Due on due Goal Depression scree jaskaran. Due on due Referral Ordered: Florencio Parry MD timeframe: 6 Months. (related to Body mass index [BMI] 36.0-36.9, adult) ordered Appointment Susanne Clark BOOKED Nutrition Recommendation Oral nutritional support completed History Of Present Illness Encounter Date Complaint History Of Prese nt Illness ext ext DN DN Functional Status Date Functional Assessmen t No Information Instructions Date Instruction Additional Infor mation Giving encouragement to exercise Related to Body mass index [BMI] 36.0-36.9, adult Assessments Type Assessment Date No Information Patient Care Teams Name Effective Dates (start - stop) Status Members No Information
[2024-09-06 18:13] VITALS: BP 149/83; PULSE 89; TEMP 36.9; O2SAT 99; BMI 35.8
--- OUTSIDE RECORDS SUMMARY | 2024-09-06 18:21 | XMS_ITS | CCD ---
Author Organization [facility] CliniSyne Care Team Providers Care Biometrics Head Name Role Phone Dorys Flannery Unavailable Liliya Fletcher Unavailable MD Jaja Parry Primary Care Provider [phone] HAKEEM Fletcher Attending Provider Hudson Gu Unavailable [...] HUTTON Admitting Unavailable LILIYA HUTTON Attending Unavailable HOY ., DR WILKINSON Primary Care Unavailable HEMANT, DR NOHEMY Johnson Consulting Unavailable LILIYA HUTTON Consulting Unavailable HUDSON GU Admitting Unavailable HUDSON GU Attending Unavailable FUENTES ., DR WILKINSON Primary Care Unavailable MD Jaja Parry Primary Care Provider MD Gregg Nassar Attending Provider MD Jaja Parry Primary Care Provider [phone] MD Gregg Nassar Attending Provider Jaja Parry MD Primary Care Provider ADRIEN [...] Attending Unavailable Jaja Parry Primary Care Unavailable Leonie DODGES, Dolly Attending Unavailable Jaja Parry MD Primary Care Unavailable Vielka Galeano MD Attending Provider [phone] Allergies Allergy Classification Reported Allergen(s) Allergy Type Date of Onset Reaction(s) Facility Angiotensin Converting Enzyme (ROSS) Inhibitors (1 source) Lisinopril Drug Allergy 4 [facility] Cephalosporins (antibiotic) (1 source) Cephalexin Drug Allergy 4 Unknown Reaction [facility] (5 sources) Cephalexin; Translations: [Keflex] Drug Allergy 4 Unknown [facility] (1 source) Corticosteroids Drug allergy (disorder) 4 [facility] (1 source) DULoxetine Drug Allergy 4 [facility] (13 sources) Cephalexin; Translations: [cephalexin] Drug Allergy 3 Unknown Reaction [facility] (13 sources) Lisinopril; Translations: [lisinopril] Drug Allergy 3 [facility] Medications Current Medications Medication Drug Class(es) Dates Sig (Normalized) Sig (Original) acetaminophen 300 mg / codeine phosphate 30 mg oral tablet (4 sources) Opioid Agonist Start: 08-13-2024 ascorbic acid [...] Active cyclobenzaprine hydrochloride 10 mg oral tablet (6 sources) Muscle Relaxant Start: 07-11-2024 take 1 tablet by mouth three times daily as needed for muscle spasms DULoxetine 60 mg delayed release oral capsule (5 sources) Serotonin and Norepinephrine Reuptake Inhibitor Start: 07-24-2024 take 1 capsule by mouth once daily 3 ml insulin glargine 100 unt/ml pen injector (6 sources) Insulin Analog Start: 07-11-2024 Start: 07-11-2024 [...] Active metoprolol tartrate 50 mg oral tablet (6 sources) beta-Adrenergic Jeremy Start: 07-11-2024 take 1 tablet by mouth twice daily multivit with min-folic acid (5 sources) Start: 07-11-2024 take 1 tablet by mouth once daily Start: 07-11-2024 take 1 tablet by larisas th once daily multivit with min-folic acid [...] pantoprazole 40 mg delayed release oral tablet (4 sources) Proton Pump Inhibitor Start: 07-11-2024 take 1 tablet by mouth once Pantoprazole 40 mg tablet,delayed release (DR/EC) (2 sources) Start: 07-11-2024 take 1 tablet by mouth once Pantoprazole 40 mg tablet,delayed release (DR/EC) Active 40 MG PO Once July 11, 2024 12:00am simvastatin 20 mg oral tablet (13 sources) HMG-CoA Reductase Inhibitor Start: 07-11-2024 take 1 tablet by mouth once daily Simvastatin Acti ve Tart Thapa (4 sources) Tart Thapa Acti ve Tart Thapa 1200 MG capsule (3 sources) Tart Thapa 1200 MG capsule Tart Thapa Active Completed/Discontinued Medications Medication Drug Class(es) Dates Sig (Normalized) Sig (Original) ARIPiprazole 5 mg oral tablet (19 sources) Atypical Antipsychotic Start: 05-09-2023 End: 07-11-2024 take 1 tablet by mouth once daily Aripiprazole 5 mg tablet Discontinued 5 MG PO Daily May 09, 2023 12:00am July 11, 2024 10:48am FreeTextSi tablet Orally Once a day; Note: Source Status: Taking; Provider: Marga Flores ( ) Gabe Active 24 hr buPROPion hydrochloride 300 mg extended release oral tablet (17 sources) Aminoketone Start: 05-09-2023 End: 07-11-2024 take [...] day Active empagliflozin 25 mg oral tablet (15 sources) Sodium-Glucose Cotransporter 2 Inhibitor Start: 05-09-2023 End: 07-11-2024 take 1 tablet by mouth once daily Empagliflozin (Jardiance) 25 mg tablet Discontinued 25 MG PO Daily May 09, 2023 12:00am July 11, 2024 10:47am Start: 04-16-2022 take 10 mg by mouth in the morning Jardiance 10 MG Take 10 mg by mouth in the morning. 04/16/2022 Active metFORMIN hydrochloride 500 mg oral tablet (19 sources) Biguanide Start: 05-09-2023 End: 07-11-2024 take [...] Ac tive nabumetone 500 mg oral tablet (14 sources) Nonsteroidal Anti-inflammatory Drug Start: 05-09-2023 End: [...] day Active pioglitazone 45 mg oral tablet (19 sources) Peroxisome Proliferator Receptor alpha Agonist, Peroxisome Proliferator Receptor gamma Agonist, Thiazolidinedione Start: 05-09-2023 End: 07-11-2024 take 1 tablet by mouth once daily Pioglitazone 45 mg tablet Discontinued 45 MG PO Daily May 09, 2023 12:00am July 11, 2024 10:47am FreeTextSi tablet Orally Once a day; Note: Source Status: Taking; Provider: Marga Flores ( ) Actos Active sertraline 100 mg oral tablet (19 sources) Serotonin Reuptake Inhibitor Start: 05-09-2023 End: 07-11-2024 take 1 tablet by mouth once daily Sertraline 100 mg tablet Discontinued 100 MG PO Daily May 09, 2023 12:00am July 11, 2024 10:47am FreeTextSi tablet Orally Once a day; Note: Source Status: Taking; Provider: Marga Flores ( ) Zoloft Active SITagliptin 100 mg oral tablet (17 sources) Dipeptidyl Peptidase 4 Inhibitor Start: 05-09-2023 End: 07-11-2024 take 1 tablet by mouth once daily Sitagliptin Phosphate 100 mg tablet Discontinued 1 TAB PO Daily May 09, 2023 12:00am July 11, 2024 10:47am FreeTextSi tablet Orally Once a day; Note: Source Status: Taking; Provider: Marga Flores ( ) traMADol hydrochloride 50 mg oral tablet (19 sources) Opioid Agonist Start: 10-13-2023 End: 08-13-2024 [...] suspension (3 sources) Corticosteroid Start: 03-31-2022 Kenalog-40 14 Jul, 2022 40 mg Vit C-S.Yuhfwy-Iwsmvl-Jjjig Sd (Tart Thapa) 66-411-98-75-20 mg capsule (10 sources) Start: 07-12-2023 End: 07-24-2024 Vit C-S.Jgmeew-Zpoett-Anbsi Sd (Tart Thapa) 70-999-87-75-20 mg capsule Discontinued CAP PO July 12, 2023 12:00am July 24, 2024 9:24am Start: 07-12-2023 Vit C-S.Thapa -Celery-Grape Sd (Tart Thapa) 58-067-13-75-20 mg capsule Active CAP PO July 12, [...] Onset: 03-09-2022 Chronic Other connective tissue disease (17 sources) Fibromyalgia; Translations: [Fibromyalgia] 07-11-2024 Episodic Other connective tissue disease (2 sources) Fibromyalgia; Translations: [Myalgia and myositis, unspecified] 07-11-2024 Episodic Other diseases of veins and lymphatics (2 sources) Vascular insufficiency; Translations: [Venous insufficiency (chronic) (peripheral)] 07-12-2024 Episodic Other nervous system disorders (20 sources) Chronic pain; Translations: [Other chronic pain] 06-30-2023 Chronic Other nervous system disorders (10 sources) Other chronic pain; Translations: [Other chronic pain] Onset: 07-24-2024 06-30-2023 Chronic Other non-traumatic joint disorders (19 sources) Pain in unspecified knee; Translations: [Knee [...] Translations: [Contusion of left knee] Episodic Unclassified (4 sources) Call Dr. Horne office to schedule [...] By: Ander Harris on 08-30-2024 Study report [facility] [address] [place] [address] XRay Report Signed Patient: Susanne Clark MR#: [id number] : 1965 Acct:[id number] Age/Sex: 58 / F ADM Date: 5 Loc: [facility] Room: Type: [facility] Attending Dr: [...] Dann Harris DO 08/30/241657 Signed By: 08/30/241658 [facility] XR knee LT 2Von 08-30-2024 XR knee LT 2V [facility] [address] [place] [address] XRay Report Signed Patient: Susanne Clark MR#: [id number] : 1965 Acct:[id number] Age/Sex: 58 / F ADM Date: 08/30/24 Loc: [facility]XD Room: Type: REG CLI Attending Dr: Gregg Nassar MD Copies [...] DO 08/30/241657 Signed By: 08/30/241658 Normal [facility] XR knee LT 2Von 10-13-2023 XR knee LT 2V [facility] [address] [place] [address] XRay Report Signed Patient: Susanne Clark MR#: [id number] : 1965 Acct:[id number] Age/Sex: 58 / F ADM Date: 10/13/23 Loc: SOXD Room: Type: REG CLI Attending Dr: Gregg Nassar MD Copies [...] PROCESS. Impression dictated by: Freedom Foster Jr., D.OXiomy10/13/2023 12:32 PM Dictation Location: [facility]- Transcribed By: [facility] 10/13/23 1232 Dictated By: Freedom Foster Jr, DO 10/13/23 1231 Signed By: 10/13/23 1232 Normal [facility] MRI KNEE LT WO [...] by: NOHEMY MARCOS Date: 2022-02-22 08:51 Normal [facility] XR knee LT 4V*on 12-12-2021 XR knee LT 4V* [facility] I Do Venues Other XR knee LT 4V* [facility] I Do Venues Other XR knee LT 4V* [address] [facility] I Do Venues Other XR knee LT 4V* [place] [address] No rt I Do Venues Other XR knee LT 4V* XRay Report [employer] Other XR knee LT 4V* Signed [employer] Other XR knee LT 4V* Patient: Susanne Clark MR#: [id number] [employer] Other XR knee LT 4V* [id number] [employer] Other XR knee LT 4V* : 1965 Acct:[id number] [employer] Other XR knee LT 4V* Age/Sex: 56 / F ADM Date: 12/12/21 [employer] Other XR knee LT 4V* Loc: XDUCLY Room: Type: REG CLI [employer] Other XR knee LT 4V* Attending Dr: Liliya PALACIO [employer] Other XR knee LT 4V* Copies to: HAKEEM Lim [employer] Other XR knee LT 4V* Ordering Provider: HAKEEM Lim [employer] Other XR knee LT 4V* Date of Service: 12/12/21 [employer] Other XR knee LT 4V* XR/XR knee LT 4V*: Acute pain of left knee [employer] Other XR knee LT 4V* XR knee LT 4V* 12/12/2021 12:41 PM [employer] Other XR knee LT 4V* SIGNS AND SYMPTOMS: Left knee pain after fall [employer] Other XR knee LT 4V* PROTOCOL: Frontal, lateral, and oblique radiographs of the left knee [employer] Other XR knee LT 4V* COMPARISON: None Nort I Do Venues Other XR knee LT 4V* FINDINGS: Maulik [employer] Other XR knee LT 4V* There is mild narrowing of the patellofemoral joint space with minimal narrowing of the medial [employer] Other XR knee LT 4V* weightbearing joint space. There is no evidence of fracture. No dislocation or subluxation. No [employer] Other XR knee LT 4V* joint effusion. No significant soft tissue swelling. [employer] Other XR knee LT 4V* XR/XR knee LT 4V* [employer] Other XR knee LT 4V* IMPRESSION: [employer] Other XR knee LT 4V* No acute bony injury. [employer] Other XR knee LT 4V* Mild degenerative changes are noted, as above. [employer] Other XR knee LT 4V* Impression dictated by: Bernardo Camacho M.D.12/12/2021 12:59 PM [employer] Other XR knee LT 4V* Dictation Location: [place] [address] [employer] Other XR knee LT 4V* Transcribed By: IGOR 12/12/21 1259 [employer] Other XR knee LT 4V* Dictated By: Bernardo Camacho II, MD 12/12/21 1258 [employer] Other XR knee LT 4V* Signed By: [employer] Other XR knee LT 4V* 12/12/21 1259 [employer] Other SARS-CoV-2 (COVID-19) RNA NA A+probe Ql (Resp)on 2021 SARS-CoV-2 (COVID-19) RNA ALYSSA+probe Ql (Unsp spec) Positive [employer] Other T4 [facility] 10-06-2021 T4 [Mass/Vol] 7.2 ug/dL Normal 4.5-12.0 [facility] Comment on above: Performed By: #### T 4LC #### [facility] [address] [address] [address] Chana Ceballos VIT D 25-OH [facility] 2021 Vitamin D, 25-Hydroxy 33.8 ng/mL Normal 30.0-100.0 [facility] Comment on above: Result Comment: Divya min D deficiency has been defined by the [place] of [employer] and an Endocrine Society practice guideline as a level of serum 25-OH vitamin D less than 20 ng/mL (1,2). The Endocrine Society went on to further define vitamin D insufficiency as a level between 21 and 29 ng/mL (2). 1. IOM ([place] of Medicine). 2010. Dietary reference intakes for calcium and D. [place]: The National Academies Press. 2. Sundar MF, Dinorah NC, Zahra-Justin GIBSON, et al. Evaluation, treatment, and prevention of vitamin D deficiency: an Endocrine Society clinical practice guideline. JCEM. 2010; 96(7):1911-30. Performed By: #### V ITADLC #### [facility] [address] [address] [address] Chana Ceballos CBC AUTO DIFFon 08-22-2022 BASO # 0.0 103/ul Normal 0.0-0.1 [facility] Comment on above: Performed By: #### C BC #### [facility] [address] [place] [address] Dr. Chana Ceballos Basophils/100 WBC (Bld) 0.3 % Normal 0.2-2.0 [facility] Comment on above: Performed By: #### C BC #### [facility] [address] [place] [address] Dr. Chana Ceballos EO # 0.2 103/ul Normal 0.0-0.7 [facility] Comment on above: Performed By: #### C BC #### [facility] [address] [place] [address] Dr. Chana Ceballos Eosinophils/100 WBC (Bld) 2.1 % Normal 0.9-7.0 [facility] Comment on above: Performed By: #### C BC #### [facility] [address] [place] [address] Dr. Chana Ceballos Erythrocyte distribution width (RBC) [Ratio] 12.3 % Normal 11.0-15.0 [facility] Comment on above: Performed By: #### C BC #### [facility] [address] [place] [address] Dr. Chana Ceballos Hematocrit (Bld) [Volume fraction] 41.7 % Normal 36.0-48.0 [facility] Comment on above: Performed By: #### C BC #### [facility] [address] [place] [address] Dr. Chana Ceballos Hemoglobin (Bld) [Mass/Vol] 13.6 g/dL Normal 12.0-16.0 [facility] Comment on above: Performed By: #### C BC #### [facility] [address] [place] [address] Dr. Chana Ceballos IG # 0.04 10e3/ul Critically high 0.00-0.03 [facility] Comment on above: Performed By: #### C BC #### [facility] [address] [place] [address] Dr. Chana Ceballos IG % 0.6 % Critically high 0.0-0.5 [facility] Comment on above: Performed By: #### C BC #### [facility] [address] [place] [address] Dr. Chana Ceballos LYMPH # 1.4 103/ul Normal 1.2-3.8 [facility] Comment on above: Performed By: #### C BC #### [facility] [address] [place] [address] Dr. Chana Ceballos Lymphocytes/100 WBC (Bld) 19.8 % Critically low 20.5-60.0 [facility] Comment on above: Performed By: #### C BC #### [facility] [address] [place] [address] Dr. Chana Ceballos MANUAL DIFF REQ NO Normal [facility] Comment on above: Performed By: #### C BC #### [facility] [address] [place] [address] Dr. Chana Ceballos MCH (RBC) [Entitic mass] 30.3 pg Normal 26.7-34.0 [facility] Comment on above: Performed By: #### C BC #### [facility] [address] [place] [address] Dr. Chana Ceballos MCHC (RBC) [Mass/Vol] 32.6 g/dL Normal 29.9-35.2 [facility] Comment on above: Performed By: #### C BC #### [facility] [address] [place] [address] Dr. Chana Ceballos MCV (RBC) [Entitic vol] 92.9 fL Normal 81.0-99.0 [facility] Comment on above: Performed By: #### C BC #### [facility] [address] [place] [address] Dr. Chana Ceballos MONO # 0.7 103/ul Normal 0.3-0.8 [facility] Comment on above: Performed By: #### C BC #### [facility] [address] [place] [address] Dr. Chana Ceballos Monocytes/100 WBC (Bld) 10.2 % Normal 1.7-12.0 [facility] Comment on above: Performed By: #### C BC #### [facility] [address] [address] [address] Chana Ceballos NEUT # 4.7 103/ul Normal 1.4-6.5 [facility] Comment on above: Performed By: #### C BC #### [facility] [address] [address] [address] Chana Ceballos Neutrophils/100 WBC (Bld) 67.0 % Normal 43.0-75.0 [facility] Comment on above: Performed By: #### C BC #### [facility] [address] [address] [address] Chana Ceballos Platelet mean volume (Bld) [Entitic vol] 11.0 fL Normal 9.5-13.5 [facility] Comment on above: Performed By: #### C BC #### [facility] [address] [place] [address] Dr. Chana Ceballos PLT 212 103/ul Normal 150-450 [facility] Comment on above: Performed By: #### C BC #### [facility] [address] [address] [address] Chana Ceballos WBC 7.1 103/ul Normal 4.0-11.0 [facility] Comment on above: Performed By: #### C BC #### [facility] [address] [place] [address] Dr. Chana Ceballos FREE T3on 10-05-2021 FREE T3 2.32 pg/mlL Normal 2.18-3.98 [facility] Comment on above: Performed By: #### T SH, CMP, LIPID, FT3 #### [facility] [address] [place] [address] Dr. Chana Ceballos GLYCOHEMOGLOBIN A1Con 2021 ADA RECOMMENDATION SEE BELOW Normal [facility] Comment on above: Result Comment: ADA RECOMMENDED LIMIT 4.0 - 6.0 ADA THERAPEUTIC TARGET < 7.0 ACTION SUGGESTED > 7.0 Performed By: #### A 1C #### [facility] [address] [place] [address] Dr. Chana Ceballos Glucose [Mass/Vol] 169 mg/dL Normal [facility] Comment on above: Performed By: #### A 1C #### [facility] [address] [address] [address] Chana Ceballos HbA1c (Bld) [Mass fraction] 7.5 % Critically high 4.5-6.2 [facility] Comment on above: Performed By: #### A 1C #### [facility] [address] [place] [address] Dr. Chana Ceballos LIPID PROFILEon 10-05-2021 CHOL-HDL RATIO NORM SEE BELOW Normal [facility] Comment on above: Result Comment: 3.3 - 4.4 LOW RISK 4.4 - 7.1 AVERAGE RISK 7.1 - 11.0 MODERATE RISK >11.0 HIGH RISK Performed By: #### T SH, CMP, LIPID, FT3 #### [facility] [address] [place] [address] Dr. Chana Ceballos Cholesterol [Mass/Vol] 217 mg/dL Critically high <=200 [facility] Comment on above: Performed By: #### T SH, CMP, LIPID, FT3 #### [facility] [address] [address] [address] Chana Ceballos Cholesterol in HDL [Mass/Vol] 38 mg/dL Critically low 40-60 [facility] Comment on above: Performed By: #### T SH, CMP, LIPID, FT3 #### [facility] [address] [address] [address] Chana Ceballos Cholesterol in LDL [Mass/Vol] 137.4 mg/dL Normal [facility] Comment on above: Performed By: #### T SH, CMP, LIPID, FT3 #### [facility] [address] [address] [address] Chana Ceballos Cholesterol.total/Ch olesterol in HDL [Mass ratio] 5.7 {ratio} Normal [facility] Comment on above: Performed By: #### T SH, CMP, LIPID, FT3 #### [facility] [address] [place] [address] Dr. Chana Ceballos HDL NORMAL > or = 60 mg/dl - LOW CARDIOVASCULAR RISK <40 mg/dl - HIGH CARDIOVASCULAR RISK Normal [facility] Comment on above: Performed By: #### T SH, CMP, LIPID, FT3 #### [facility] [address] [address] [address] Chana Ceballos LDL CALC NORMAL SEE BELOW Normal [facility] Comment on above: Result Comment: <100 mg/dl OPTIMAL 100 - 129 mg/dl NEAR OR ABOVE OPTIMAL 130 - 159 mg/dl BORDERLINE HIGH 160 - 189 mg/dl HIGH >190 mg/dl VERY HIGH Performed By: #### T SH, CMP, LIPID, FT3 #### [facility] [address] [address] [address] Chana Ceballos Triglyceride [Mass/Vol] 208 mg/dL Critically high <=150 [facility] Comment on above: Performed By: #### T SH, CMP, LIPID, FT3 #### [facility] [address] [address] [address] Chana Ceballos VLDL CALC 41.6 mg/dL Normal [facility] Comment on above: Performed By: #### T SH, CMP, LIPID, FT3 #### [facility] [address] [address] [address] Chana Ceballos PROF 14(COMP METB)on 022 Albumin [Mass/Vol] 4.2 g/dL Normal 3.4-5.0 [facility] Comment on above: Performed By: #### T SH, CMP, LIPID, FT3 #### [facility] [address] [address] [address] Chana Ceballos Albumin/Globulin [Mass ratio] 1.2 {ratio} Normal [facility] Comment on above: Performed By: #### T SH, CMP, LIPID, FT3 #### [facility] [address] [address] [address] Chana Ceballos ALP [Catalytic activity/Vol] 61 U/L Normal 46-116 [facility] Comment on above: Performed By: #### T SH, CMP, LIPID, FT3 #### [facility] [address] [address] [address] Chana Ceballos ALT [Catalytic activity/Vol] 29 U/L Normal 14-59 [facility] Comment on above: Performed By: #### T SH, CMP, LIPID, FT3 #### [facility] [address] [address] [address] Chana Ceballos Anion gap [Moles/Vol] 14.3 mmol/L Normal [facility] Comment on above: Performed By: #### T SH, CMP, LIPID, FT3 #### [facility] [address] [place] [address] Dr. Chana Ceballos AST [Catalytic activity/Vol] 17 U/L Normal 15-37 [facility] Comment on above: Performed By: #### T SH, CMP, LIPID, FT3 #### [facility] [address] [place] [address] Dr. Chana Ceballos Bilirubin [Mass/Vol] 0.2 mg/dL Normal 0.2-1.0 [facility] Comment on above: Performed By: #### T SH, CMP, LIPID, FT3 #### [facility] [address] [place] [address] Dr. Chana Ceballos Calcium [Mass/Vol] 9.0 mg/dL Normal 8.5-10.1 [facility] Comment on above: Performed By: #### T SH, CMP, LIPID, FT3 #### [facility] [address] [place] [address] Dr. Chana Ceballos Chloride [Moles/Vol] 103 mmol/L Normal 98-107 [facility] Comment on above: Performed By: #### T SH, CMP, LIPID, FT3 #### [facility] [address] [place] [address] Dr. Chana Ceballos CO2 [Moles/Vol] 25.1 mmol/L Normal 21.0-32.0 [facility] Comment on above: Performed By: #### T SH, CMP, LIPID, FT3 #### [facility] [address] [place] [address] Dr. Chana Ceballos Creatinine [Mass/Vol] 0.93 mg/dL Normal 0.55-1.02 [facility] Comment on above: Performed By: #### T SH, CMP, LIPID, FT3 #### [facility] [address] [address] [address] Chana Ceballos EGFR-AF PRYDEINIG >60 Normal >=60 [facility] Comment on above: Performed By: #### T SH, CMP, LIPID, FT3 #### [facility] [address] [address] [address] Chana Ceballos EGFR-NON AF PRYDEINIG >60 Normal >=60 [facility] Comment on above: Performed By: #### T SH, CMP, LIPID, FT3 #### [facility] [address] [place] [address] Dr. Chana Ceballos Globulin (S) [Mass/Vol] 3.4 g/dL Normal [facility] Comment on above: Performed By: #### T SH, CMP, LIPID, FT3 #### [facility] [address] [place] [address] Dr. Chana Ceballos Glucose [Mass/Vol] 198 mg/dL Critically high 74-106 [facility] Comment on above: Performed By: #### T SH, CMP, LIPID, FT3 #### [facility] [address] [place] [address] Dr. Chana Ceballos Potassium [Moles/Vol] 4.4 mmol/L Normal 3.5-5.1 [facility] Comment on above: Performed By: #### T SH, CMP, LIPID, FT3 #### [facility] [address] [place] [address] Dr. Chana Ceballos Protein [Mass/Vol] 7.6 g/dL Normal 6.4-8.2 [facility] Comment on above: Performed By: #### T SH, CMP, LIPID, FT3 #### [facility] [address] [place] [address] Dr. Chana Ceballos Sodium [Moles/Vol] 138 mmol/L Normal 136-145 [facility] Comment on above: Performed By: #### T SH, CMP, LIPID, FT3 #### [facility] [address] [address] [address] Chana Ceballos Urea nitrogen [Mass/Vol] 18.0 mg/dL Normal 7.0-18.0 [facility] Comment on above: Performed By: #### T SH, CMP, LIPID, FT3 #### [facility] [address] [place], [place] [address] Dr. Chana Ceballos Urea nitrogen/Creatinine [Mass ratio] 19.4 mg/mg Normal [facility] Comment on above: Performed By: #### T SH, CMP, LIPID, FT3 #### [facility] [address] [place], [place] [address] Dr. Chana Ceballos TSHon 10-05-2021 TSH 2.219 uIU/mL Normal 0.358-3.740 [facility] Comment on above: Performed By: #### T SH, CMP, LIPID, FT3 #### [facility] [address] [place], [place] [address] Dr. Chana Ceballos Vital Signs Date Time Vital Sign Value Performing Clinician Facility 07-24-2024 10:45-0400 Diastolic blood pressure 82 mm[Hg] Jaja Parry MD Work Phone: [facility] 07-24-2024 10:45-0400 Heart rate 75 /min Jaja Parry MD Work Phone: [facility] 07-24-2024 10:45-0400 Respiratory rate 16 /min Jaja Parry MD Work Phone: [facility] 07-24-2024 10:45-0400 SaO2% (BldA) [Mass fraction] 93 % Jaja Parry MD Work Phone: [facility] 07-24-2024 10:45-0400 Systolic blood pressure 123 mm[Hg] Jaja Parry MD Work Phone: [facility] 07-24-2024 10:12-0400 Inhaled oxygen flow rate 3 L/min Jaja Parry MD Work Phone: [facility] 07-24-2024 09:26-0400 Body height 167.64 cm Jaja Parry MD Work Phone: [facility] 07-24-2024 09:26-0400 Body weight 102.05 kg Jaja Parry MD Work Phone: [facility] 07-12-2024 10:10-0400 Body height 167.6 cm Adrien Jacques DPM Work Phone: [facility] 07-12-2024 10:10-0400 Body mass index (BMI) [Ratio] 38.74 kg/m2 Adrien Jacques DPM Work Phone: [facility] 07-12-2024 10:10-0400 Body weight 108.86 kg Adrien Jacques DPM Work Phone: [facility] 07-12-2024 10:10-0400 Respiratory rate 18 /min Adrien Jacques DPM Work Phone: [facility] 07-12-2023 11:25-0400 Diastolic blood pressure 88 mm[Hg] MD Jaja Parry Work Phone: [facility] 07-12-2023 11:25-0400 Heart rate 82 /min MD Jaja Parry Work Phone: [facility] 07-12-2023 11:25-0400 Respiratory rate 16 /min MD Jaja Parry Work Phone: [facility] 07-12-2023 11:25-0400 SaO2% (BldA) [Mass fraction] 99 % MD Jaja Parry Work Phone: [facility] 07-12-2023 11:25-0400 Systolic blood pressure 138 mm[Hg] MD Jaja Parry Work Phone: [facility] 07-12-2023 10:51-0400 Inhaled oxygen flow rate 3 L/min MD Jaja Parry Work Phone: [facility] 07-12-2023 09:56-0400 Body height 167.64 cm MD Jaja Parry Work Phone: [facility] 07-12-2023 09:56-0400 Body weight 108.86 kg MD Jaja Parry Work Phone: [facility] 06-17-2023 08:47-0400 Body height 167.64 cm [facility] 06-17-2023 08:47-0400 Body mass index (BMI) [Ratio] 38.4 kg/m2 [facility] 06-17-2023 08:47-0400 Body weight 108 kg [facility] 05-09-2023 08:58-0400 Body height 167.64 cm [facility] 05-09-2023 08:58-0400 Body mass index (BMI) [Ratio] 38.7 kg/m2 [facility] 05-09-2023 08:58-0400 Body weight 108.94 kg [facility] 07-28-2022 08:15-0400 Body height 167.64 cm Hudson Gu Other [facility] [employer] Other 07-28-2022 08:15-0400 Body mass index (BMI) [Ratio] 38.73 kg/m2 Hudson Gu Other [facility] Other 07-28-2022 08:15-0400 Body weight 108.86 kg Hudson Gu Other [facility] Other 12-12-2021 13:05-0400 Body height 167.64 cm Liliya Fletcher Other [facility] Other 12-12-2021 13:05-0400 Body mass index (BMI) [Ratio] 35.51 kg/m2 Liliya Fletcher Other [facility] Other 12-12-2021 13:05-0400 Body temperature 97.9 [degF] Liliya Fletcher Other [facility] Other 12-12-2021 13:05-0400 Body weight 99.79 kg Liliya Fletcher Other [facility] Other 12-12-2021 13:05-0400 Diastolic blood pressure 74 mm[Hg] Liliya Fletcher Other [facility] Other 12-12-2021 13:05-0400 Respiratory rate 18 /min Liliya Fletcher Other [facility] Other 12-12-2021 13:05-0400 SaO2% (BldA) [Mass fraction] 99 % Liliya Fletcher Other [facility] Other 12-12-2021 13:05-0400 Systolic blood pressure 138 mm[Hg] Liliya Fletcher Other [facility] Other 2021 12:30-0400 Body height 167.64 cm Dorys Pughault Other [facility] Other 2021 12:30-0400 Body mass index (BMI) [Ratio] 36.31 kg/m2 Dorys Prudencio Other [facility] Other 2021 12:30-0400 Body temperature 97 [degF] Dorys Prudencio Other [facility] Other 2021 12:30-0400 Body weight 102.06 kg Doyrs Prudencio Other [facility] Other Encounters Encounter Date Encounter Type Care Provider Facility Start: 09-05-2024 End: 09-05-2024 ambulatory Jaja aPrry MD Work Phone: [facility] Work Phone: Start: 09-05-2024 End: 09-05-2024 Departed Referred Vielka Galeano MD -[facility] Start: 08-31-2024 ambulatory Dolly Hadley DDS [facility] Start: 08-30-2024 End: 08-30-2024 ambulatory Jaja Parry MD Work Phone: [facility] Work Phone: Start: 08-30-2024 End: 08-30-2024 Patient encounter procedure Gregg Kapoor MD -[facility] Work Phone: Start: 08-13-2024 End: 08-13-2024 ambulatory Jaja Parry MD Work Phone: [facility] Work Phone: Start: 08-13-2024 End: 08-13-2024 Patient encounter procedure Gregg Kapoor MD -[facility] Work Phone: Start: 07-24-2024 Non-patient / Non-visit Christal Parry MD Work Phone: [facility] Work Phone: Start: 07-24-2024 End: 07-24-2024 Admission to same day surgery center Jaja Parry MD Work Phone: [facility] Work Phone: Start: 07-24-2024 End: 07-24-2024 ambulatory Jaja Parry MD Work Phone: [facility] Work Phone: Start: 07-12-2024 End: 07-12-2024 Bamboo flowsheet Adrien Jacques DPM Work Phone: [facility] Start: 07-12-2024 End: 07-12-2024 Bamboo flowsheet Adrien Jacques DPM Work Phone: [facility] Start: 07-12-2024 End: 07-12-2024 Office outpatient new 30 minutes Adrien Jacques DPM Work Phone: [facility] Comment on above: Venous insufficiency (Primary Dx); Diabetes mellitus due to underlying condition with diabetic polyneuropathy, without long-term current use of insulin ([facility]); Pain due to onychomycosis of toenails of both feet Start: 07-12-2024 End: 07-12-2024 ambulatory ADRIEN JACQUES Not Available Start: 07-11-2024 End: 07-11-2024 ambulatory [facility] Work Phone: Start: 07-11-2024 End: 07-11-2024 Patient encounter procedure [facility] Work Phone: Start: 10-13-2023 End: 10-13-2023 ambulatory MD Jaja Parry Work Phone: [facility] Work Phone: Start: 10-13-2023 End: 10-13-2023 Patient encounter procedure MD Jaja Parry Work Phone: [facility] Work Phone: Start: 08-01-2023 End: 08-01-2023 ambulatory MD Jaja Parry Work Phone: [facility] Work Phone: Start: 08-01-2023 End: 08-01-2023 Patient encounter procedure MD Jaja Parry Work Phone: [facility] Work Phone: Start: 07-12-2023 Non-patient / Non-visit MD Linnea Parry Work Phone: [facility] Work Phone: Start: 07-12-2023 End: 07-12-2023 Admission to same day surgery center MD Jaja Parry Work Phone: [facility] Work Phone: Start: 07-12-2023 End: 07-12-2023 ambulatory MD Jaja Parry Work Phone: [facility] Work Phone: Start: 06-30-2023 End: 06-30-2023 Patient encounter procedure MD Jaja Parry Work Phone: [facility] Work Phone: Start: 06-17-2023 End: 06-17-2023 ambulatory [facility] Work Phone: Start: 06-17-2023 End: 06-17-2023 Patient encounter procedure [facility] Work Phone: Start: 05-09-2023 End: 05-09-2023 ambulatory [facility] Work Phone: Start: 05-09-2023 End: 05-09-2023 Patient encounter procedure [facility] Work Phone: Start: 07-28-2022 End: 07-28-2022 ambulatory Hudson Gu Other [facility] Other Start: 07-28-2022 Office outpatient vi sit 25 minutes Hudson ENGLE [facility] Start: 06-23-2022 End: 06-24-[address] JAJA PARRY . Facility:[facility] Start: 06-14-2022 End: 06-14-2022 ambulatory Hudson Gu Other [facility] Other Start: 06-14-2022 Telephone encounter Hudson Gu G [facility] Start: 03-09-2022 End: 04-08-2022 ambulatory HUDSON GU Facility:[facility] Start: 02-22-2022 End: 02-23-2022 ambulatory LILIYA HUTTON Facility:[facility] Start: 12-12-2021 Office outpatient vi sit 15 minutes Liliya Fletcher [facility] Start: 12-12-2021 End: 12-12-2021 ambulatory MD Jaja Parry Work Phone: [facility] Other Start: 12-12-2021 End: 12-12-2021 Patient encounter procedure MD Jaja Parry Work Phone: [facility] Start: 2021 End: 2021 ambulatory Dorys Flannery Other [facility] Other Start: 2021 Office outpatient ne w 20 minutes Dorys Flannery [facility] Start: 10-07-2021 Encounter for genera l adult medical examination without abnormal findings DR JAJA PARRY . [facility] Start: 10-05-2021 End: 10-06-2021 ambulatory [...] Visit [facility] [address] [place] [address] Adrien Jacques DPM [address] [address] [facility] Start: 09-05-2024 Bacteria identified in Urine by Culture Urine Culture [facility] Start: 09-05-2024 Urine culture [facility] Start: 08-30-2024 X-ray of left knee, two views XR knee LT 2V [facility] Start: 08-30-2024 XR Knee - left 2 Views [facility] Start: 07-24-2024 [facility] Start: 07-12-2024 End: 07-12-2024 Patient encounter procedure 07/12/2024 11:00 AM EDT Office Visit [facility] [address] [place] [address] Adrien Jacques DPM [address] [address] Arrived [facility] Comment on above: Arrived Start: 10-13-2023 X-ray of left knee XR knee LT 2V [facility] Start: 10-13-2023 XR Knee - left 2 Views [facility] Start: 07-12-2023 [facility] Start: 2003 Screening for malignant neoplasm of breast Mammogram [facility] Start: 10-10-1993 Screening for malignant neoplasm of cervix [facility] Start: 10-10-1984 Screening for malignant neoplasm of cervix Pap Smear [facility] Start: 1965 Screening for malignant neoplasm of colon [facility] Patient Education Know your Meds Felter Non Diagnostic Block [facility] Work Phone: Patient referral [facility] Work Phone: Payers Date Payer Category Payer Medicaid [id number] 2024 Self-pay [id number] 2024 Private Health Insurance [employer]YLE [employer] [id number] 2024 Unknown [id number] 2023 Self-pay 2012 Unknown [id number] 1963 Unknown [id number] 1963 Unknown [id number] 1963 Unknown [id number] 1963 Unknown [id number] 1963 Unknown [id number] 1963 Unknown [id number] 1959 Blue Cross Blue Shield [id number] Unknown [place] BC/BS [id number] Unknown [id number] Unknown [id number] Unknown [id number] Social History Date Type Detail Facility Start: 01-17-2023 End: 07-12-[address] [facility] [employer] Other Start: 1965 Sex Assigned At [facility] Start: 01-17-2023 Tobacco smoking status ORIS Occasional tobacco smoker [facility] History of tobacco use Cigarette Smoker [facility] Start: 01-17-2023 End: 07-12-2024 History of Social function [facility] Start: 01-17-2023 Tobacco Comment 5 or less cigarettes/day [facility] Start: 1965 Sex assigned at Not on file [facility] Start: 07-11-2024 End: 07-24-2024 Tobacco smoking status NHIS Ex-smoker (finding) [facility] Start: 07-11-2024 End: 07-24-2024 Sex Female (finding) [facility] Goals Date Patient Goal Desired Activity /State Clinical Notes 2021 to 07-24-2024 Adrien Jacques, MELANY - 07/12/2024 11:00 AM EDT Note Date & Type Note Facility 07-24-2024 Procedure note [facility] enter 07-12-2024 History of Presen t illness [...] and negative PT pedal pulses NEURO: 5.07 [place] monofilament test intact to digits and forefoot bilaterally 125Hz tuning fork diminished to 1st MPJ bilaterally ORTHO: Positive pain on palpation to toenails of the left 1,2,3,4,5 toes and right 1,2,3,4,5 toes ASSESSMENT 1. Venous insufficiency 2. Diabetes mellitus due to underlying condition with diabetic polyneuropathy, without long-term current use of insulin ([facility]) 3. Pain due to onychomycosis of toenails [...] edema. Discussed condition in detail. Recommendation for [id number] compression stockings at this time and may consider prescription stockings in the future. Adrien Jacques DPM documented in this encounter [facility] 07-11-2024 Evaluation note Diagnosis Onset Date Resolution Chronic pain acute July 11 9:53am Fibromyalgia acute July 11 9:53am Osteoarthritis of left knee acute July 11, 2024 9:53am [facility] Work Phone: 1(707) 337-388105-28-2025 Evaluation note* Diagnosis Onset Date Resolution Status Admit Date Chronic pain acute July 11 9:53am Fibromyalgia acute July 11 9:53am Osteoarthritis of left knee acute July 11, 2024 9:53am Chronic pain acute August 13, 2 025 7:58am Fibromyalgia acute August 13, 2 025 7:58am Osteoarthritis of left knee acute August 13, 2024 7:58am [facility] Work Phone: 1(694) 973-635405-28-2025 Evaluation note* Diagnosis Onset Date Resolution Status [...] left knee acute August 30, 2024 9:02am [facility] Work Phone: 1(554) 746-276605-28-2024 [facility]* Author Mare Ramirez [facility] Authored May 09, 2023 9:1 6am We performed a 4/1cc Marcain e / Kenalog cortisone injection into the knee joint under sterile technique. Patient tolerated the injection well without adverse reaction. Patient can follow up as needed. Note scribed by ESEQUIEL Valle, reviewed and amended by myself Hudson Gu D.O. [facility] Work Phone: 1(483) 353-342206-14-2023 Evaluation note* Encounter Date Diagnosis Assessment Notes [...] tolerated the injection well without adverse reaction. [facility] Other 05-01-2023 Evaluation note* Encounter Date Diagnosis Assessment Notes Treatment Notes Treatment Clinical Notes June, Acute meniscal tear of left knee, initial encounter (ICD-10 - S83.207A) [facility] Other 10-29-2022 Evaluation note* Encounter Date Diagnosis [...] Nov, Other Contusion mater ial was printed [facility] Other 08-28-2022 Evaluation note* Encounter Date Diagnosis [...] COVID POSITIVE education handout discharge instructions. given. [facility] Other Evaluation noteNo assessment information available [facility] Work Phone: Evaluation note* Author Mare Ramirez [facility] Authored May 09, 2023 9:1 6am We performed a 4/1cc Marcain e / Kenalog cortisone injection into the knee joint under sterile technique. Patient tolerated the injection well without adverse reaction. Patient can follow up as needed. Note scribed by ESEQUIEL Valle, reviewed and amended by myself Hudson Gu D.O. [facility] Work Phone: Evaluation note* Diagnosis Onset Date Resolution Status Chronic pain acute Knee pain acute Osteoarthritis of left knee acute Chronic pain acute Contusion of left knee acute Knee pain acute Osteoarthritis of left knee acute [facility] Work Phone: Evaluation note* Diagnosis Venous insufficiency- Primary Unspecified venous (peripheral) insufficiency Diabetes mellitus due to underlying condition with diabetic polyneuropathy, without long-term current use of insulin ([facility]) Pain due to onychomycosis of toenails of both feet [facility] Diagnosis Onset Date Resolution Status Admit Date Chronic pain acute July 11 9:53am Fibromyalgia acute July 11 9:53am Osteoarthritis of left knee acute July 11, 2024 9:53am [facility] Work Phone: History general Narrative - Reported* Type Description Date Medical History diabetes Surgical History c-sections - 2 Surgical History oophorectomy Surgical History hysterectomy [facility] Other Hiszjgy general Narrative - Reported* Type Description Date Medical History diabetes Medical History high cholesterol Surgical History c-sections - 2 Surgical History oophorectomy Surgical History hysterectomy [facility] Other Chief Complaint and Reason for Visit [...] of left knee August 13 025 7:58am Chief Complaint Admit Date recheck [...] of left knee August 30 025 9:02am Chief Complaint Admit Date recheck July 11, 2024 9:53a m KJNEE PAIN July 24, 2024 8:58 am KJNEE PAIN July 24, 2024 10:0 8am F/U LT GENICULAR RFA August 13, 2024 7:5 8am RECHECK DISCUSS INJECTION OPTIONS August 142024 9:02am M17.12 - Unilateral primary osteoarthrit is, left k August 30, 2024 9:24am Unknown September 05, 2024 8:15 am Advance Directives Advance Directive Response Recorded Date/ [...] 01, 2023 End: August 01, 2023 Gregg Nasasr MD Attending Provider Active Sta rt: August [...] Provider Active Sta rt: October 13, 2023 [employer] Head Relationship Specialty Start Date End Date Jjaa Parry MD [address] [place] [address] PCP - General Family Medicine 02/02/23 [employer] Head Relationship Specialty Start Date End Date Jaja Parry MD [address] [facility] [place] [address] PCP - General Family Medicine 02/02/23 Team [...] Provider Active Sta rt: August 30, 2024 Team Status: Inactive Member Role Status Natacha Galeano MD Attending Provider Active Sta rt: September 05, 2024 End: September 05, 2024 Goals (unrecognized section and content) Goals may be documented in a n alternate section INFORMATION SOURCE (unrecogn ized section and content) DATE CREATED AUTHOR 06/27/2022 [facility] DATE CREATED AUTHOR AUTHOR'S ORGANIZ ATION 07/14/2024 [facility] EPIC DATE CREATED AUTHOR AUTHOR'S ORGANIZ ATION 09/02/2024 [facility] DATE CREATED AUTHOR AUTHOR'S ORGANIZ ATION 09/03/2024 [facility] DEPARTMENT FOR RECORDS PERTAINING TO [...] BE BASED ON THE PRIMARY CLINICAL RECORDS. [employer] provides no warranty or guarantee of the accuracy or completeness of information in this document.
[2024-09-06 18:35] LABS: Glucose Urine UA CI mg/dL (NEGATIVE)
[2024-09-06 18:47] LABS: Cast Seen? NONE SEEN #/LPF (NONE SEEN); Crystals Seen? None Seen #/HPF (None Seen)
[2024-09-06 18:48] LABS: Urine Culture Indicated YES-FRMC
--- NOTE | 2024-09-06 18:57 | ED_ITS ---
<Statement entered by Jonathan العلي MD - 09/15/24 20:50> This documentation has been reviewed and approved. HPI HPI - General Adult General Chief complaint: Urogenital-Female Stated complaint: BLEEDING WHILE PEEING Time Seen by Provider: 09/06/24 18:01 Source: patient Mode of arrival: walk-in Limitations: no limitations History of Present Illness Onset (ago): day(s) Location: Reports abdomen Related Data Home Medications �Medication �Instructions �Recorded �Confirmed blood sugar diagnostic (OneTouch 01/13/23 01/13/23 Verio test strips) flash glucose scanning reader 01/13/23 01/13/23 (FreeStyle Kirsten 2 Comptche) flash glucose sensor (FreeStyle 01/13/23 01/13/23 Kirsten 2 Sensor kit) simvastatin 20 mg tablet 20 mg PO DAILY 01/13/2308/15 insulin glargine 100 unit/mL (3 40 unit subcut DAILY 0 03/21/24 09/05/24 mL) subcutaneous pen ([employer] U-100 Insulin) metoprolol tartrate 50 mg tablet 50 mg PO Q12H 5 09/05/24 triamcinolone acetonide 0.1 % 1 applic topical TID 06/16/24 topical cream acetaminophen 300 mg-codeine 30 mg tab 09/05/24 tablet Previous Rx's �Medication �Instructions �Recorded magnesium oxide 400 mg PO DAILY #5 caps 08/15 05/08 nitrofurantoin 100 mg PO BID 5 days #10 cap s 09/05/24 monohydrate/macrocrystals 100 mg capsule (Macrobid) ondansetron 4 mg disintegrating 4 mg PO Q8H PRN nausea and 09/05/24 tablet vomiting 48 hours #10 tabs Allergies Allergy/AdvReac Type Severity Reaction Status Date / Time cephalexin (From Keflex) Allergy Intermediate Unknown Verified 09/06/24 18:17 lisinopril Allergy Intermediate Unknown Verified 09/06/24 18:17 tramadol Allergy Unknown Verified 09/06/24 18:17 Opioid HPI Opioid Management Most Recent Opioid Data: Last Pain Scale 7 06/16/24, 14:10 Last ORT Total Score 1 03/22/24, 17:48 Last ORT Risk Category Low Risk 03/22/24, 17:48 Review of Systems ROS Status of ROS 10 or more systems reviewed and unremark able except as noted in history and below Constitutional Denies: fever or chills Eyes Denies: change in vision Ears, nose, mouth, and throat Denies: throat pain Cardiovascular Denies: chest pain Gastrointestinal Reports: abdominal pain Genitourinary Reports: blood in urine; Denies: painful urination Musculoskeletal Denies: back pain Neurological Denies: headache Psychiatric Denies: anxiety Hematologic/Lymphatic Denies: easy bruising [facility] Medical History (Updated 09/06/24 @ 19:21 by MARYJO BANGURA II PA) Abdominal pain �R10.9 - Unspecified abdominal pain (ICD-10) Surgical History (Updated 03/22/24 @ 17:53 by Mary Woo) H/O oophorectomy H/O: hysterectomy �Z90.710 - Acquired absence of both cervix and uterus (ICD-10) Social History Highest level of school completed/degree received: some college, no degree Little interest or pleasure in doing things: not at all Feeling down, depressed, or hopeless: not at all Exam Constitutional Vital Signs, click to edit/add: Last Vital Signs Temp 98.4 F 09/06/24 18:13 Pulse 89 09/06/24 18:13 Resp 16 09/06/24 18:13 BP 149/83 H 09/06/24 18:13 Pulse Ox 99 09/06/24 18:13 O2 Del Method Room Air 09/06/24 18:13 Documenting provider has reviewed patient's vital signs: yes Common normals: no apparent distress and oriented x3 Exam limitations: no altered mental status General appearance: cooperative and comfortable [facility] Common normals: normocephalic Face and sinus: normal facial exam Eye Common normals: PERRL and conjunctivae normal Neck & C-Spine Common normals: full ROM Chest Common normals: inspection of chest normal Respiratory Common normals: normal respiratory effort, no retractions and clear to ausc ultation bilaterally Cardio Common normals: regular rate, regular rhythm, S1 normal heart sound and S2 normal heart sound Common normals: no CVA tenderness Bladder/kidney exam: no CVA tenderness Back & Pelvis Common normals: thoracic and lumbar spine normal to inspection and no thoracic nor lumbar tenderness Extremity Common normals: normal to inspection and full ROM Neuro Common normals: oriented x3 Sensorium/orientation: awake and alert Psych Common normals: mental status grossly normal and thought process normal Course Vital Signs Vital signs: Vital Signs Temperature 98.4 F 09/06/24 18:13 Pulse Rate 89 09/06/24 18:13 Respiratory Rate 16 09/06/24 18:13 Blood Pressure 149/83 H 09/06/24 18:13 Pulse Oximetry 99 09/06/24 18:13 Oxygen Delivery Method Room Air 09/06/24 18:13 Temperature 98.4 F 09/06/24 18:13 Pulse Rate 89 09/06/24 18:13 Respiratory Rate 16 09/06/24 18:13 Blood Pressure 149/83 H 09/06/24 18:13 Pulse Oximetry 99 09/06/24 18:13 Oxygen Delivery Method Room Air 09/06/24 18:13 Medical Decision Making MDM Narrative Medical decision making narrative: Patient presents with urinary bleeding she states that she was seen yesterday for abdominal pain and urinary bleeding which has improved throughout the day she was in the hospital for IV fluids and noted she had a single episode of worsening bleeding she denies any fever, chills, pain with urination, rectal bleeding. Differential Diagnosis Differential Diagnosis: Kidney stone, mass, hemorrhagic cystitis Medical Records Medical records reviewed: Yes I reviewed the patient's medical records Medical records narrative: Patient has CT yesterday which was negative for mass or kidney stone had elevated white cells bacteria and hemoglobin urine yesterday. Lab Data Labs: Lab Results 09/06/24 Range/Units 18:13 Urine Color Dk red A (YELLOW) Urine Clarity Cloudy A (CLEAR) Urine pH Ci (5.0-9.0) Ur Specific [place] 1.015 (1.005-1.025) Urine Protein Ci (NEG/TRACE) mg/dL Urine Glucose (UA) Ci (NEGATIVE) mg/dL Urine Ketones Ci (NEGATIVE) mg/dL Urine Occult Blood Ci (NEGATIVE) Urine Nitrite Ci (NEGATIVE) Urine Bilirubin Ci (NEGATIVE) Urine Urobilinogen Ci (0.2-1.0) EU/dL Ur Leukocyte Esterase Ci (NEGATIVE) Urine RBC >100 A (0-2) #/HPF Urine WBC 5-10 A (NONE SEEN) #/HPF Ur Squamous Epith Cells Rare (NONE/RARE) #/LPF Urine Crystals None seen (None Seen) #/HPF Urine Bacteria Small A (NONE SEEN) #/HPF Urine Casts None seen (NONE SEEN) #/LPF Urine Mucus None seen (NONE SEEN) Ur Culture Indicated? Yes-[facility] Discharge Plan Discharge Chief Complaint: Urogenital-Female Clinical Impression: UTI (urinary tract infection) Patient Disposition: Home, Self-Care Time of Disposition Decision: 19:21 Condition: Good Mode of Transportation: Private Vehicle Prescriptions / Home Meds: No Action (DME) OneTouch Verio test strips Strip MISCELLANEOUS (DME) FreeStyle Kirsten 2 Sensor Kit MISCELLANEOUS (DME) FreeStyle Kirsten 2 Comptche Misc MISCELLANEOUS simvastatin 20 mg tablet 20 mg PO DAILY insulin glargine [[employer] KwikPen U-100 Insulin] 100 unit/mL (3 mL) insulin pen 40 unit subcut DAILY metoprolol tartrate 50 mg tablet 50 mg PO Q12H triamcinolone acetonide 0.1 % cream 1 applic TOPICAL TID acetaminophen-codeine 300-30 mg tablet ondansetron 4 mg tablet,disintegrating 4 mg PO Q8H PRN (Reason: nausea and vomiting) 2 Days Qty: 10 0RF nitrofurantoin monohyd/m-cryst [Macrobid] 100 mg capsule 100 mg PO BID 5 Days Qty: 10 0RF Rx Instructions: must administer with a meal/food magnesium oxide 400 mg magnesium capsule 400 mg PO DAILY Qty: 5 0RF Print Language: Samoan Instructions: Urinary Tract Infection in Women (DC) Additional Instructions: Continue nitrofurantoin as directed continue magnesium oxide as directed follow- up with primary care. Return to if any symptoms worsen or new symptoms well. Referrals: Florencio Parry MD [Primary Care Provider, Family Practice] - 1 week Discharge Date/Time: 09/06/24 19:27
== END 2024-09-06 19:27 | disposition home or self-care (01) ==
PROVIDERS: Physician Assistant; Emergency Provider Emergency Medicine; PCP Family Medicine
DX: R10.84 Generalized abdominal pain (principal); R31.9 Hematuria, unspecified; E86.0 Dehydration
CPT/HCPCS: 81001; 87086; 87088; 87186; 96360; 99285; G0463

== ENCOUNTER 2024-10-22 11:46 | Outpatient (OUT) | payer MEDICAID, SELFPAY ==
--- OUTSIDE RECORDS SUMMARY | 2024-09-09 17:32 | XMS_ITS ---
Author Organization The [facility] in [place] Address [address] [place] [address] Care Team Providers Care Information Security Consultant Name Role Phone Quincy Parry Primary Care Provider REASON FOR VISIT ATB Encounters Encounter Location Date Provider Diagnosis [facility] [address] [place] [address] 09/09/2024 Quincy Parry Plan Of Treatment No Information Progress Notes * Susanne PINZON GDOB:[birth year] (58 yo F)Acc No.[id number]:09/09/2024 Patient: Cm GYPSYJASONSusanne :1965 A ge:58 Y S ex:Female Address:[address] [place] [address] [address], [place], [address] * true * Date: Generated for Arnel edwards/Vahe/eTransmitting on: 0 10/22/2024 11:49 AM EDT
--- OUTSIDE RECORDS SUMMARY | 2024-09-11 07:48 | XMS_ITS ---
Author Organization [facility] in [place] Address [address] [place] [address] Care Team Providers Care Senior Boiler Operator Name Role Phone Quincy Parry Primary Care Provider REASON FOR VISIT Antibiotics Encounters Encounter Location Date Provider Diagnosis [facility] [address] [place] [address] 09/11/2024 Quincy Parry Plan Of Treatment No Information Progress Notes * Susanne PINZON GDOB:[birth year] (58 yo F)Acc No.[id number]:09/11/2024 Patient: Cm Susanne FRASER :1965 A ge:58 Y S ex:Female Address:[address] [place] [address] [address], [place], [address] * true * Date: Generated for Emelinai ng/Faalessandrog/eTransmitting on: 0 10/22/2024 11:48 AM EDT
--- OUTSIDE RECORDS SUMMARY | 2024-10-12 04:04 | XMS_ITS ---
Author Organization [facility] in [place] Address [address] [place] [address] Care Team Providers Care Health Safety And Environment Manager Name Role Phone Quincy Parry Primary Care Provider REASON FOR VISIT fibromyalgia Medications Medication SIG (Take, Route, Fr equency, Duration) Notes Start Date End Date Status Naltrexone HCl 50 MG 1 tablet Orally Onc e a day for 30 days 10/12/2024 Active Encounters Encounter Location Date Provider Diagnosis [facility] [address] [place] [address] 10/12/2024 Quincy Parry Plan Of Treatment Medication Medication Name Sig Start Date Stop Date Notes Naltrexone HCl 50 MG 1 tablet Orally Onc e a day for 30 days 10/12/2024 Progress Notes * Susanne PINZON GDOB:[birth year] (59 yo F)Acc No.[id number]:10/12/2024 Patient: Cm Susanne FRASER :1965 A ge:59 Y S ex:Female Address:[address] [place] [address] [address], [place], [address] * Refills Start Naltrexone HCl Tablet, 50 MG, Orally, 30, 1 tablet, Once a day, 30 days, Refills=11 * true * Date: Generated for Printi ng/Faxing/eTransmitting on: 0 10/22/2024 11:49 AM EDT
--- OUTSIDE RECORDS SUMMARY | 2024-10-22 06:30 | XMS_ITS ---
Author Organization [facility] in [place] Address [address] [place] [address] Care Team Providers Care Senior Android Software Engineer Name Role Phone Quincy Parry Primary Care Provider Allergies Allergen (clinical drug ingredient) Drug/Non Drug Allergy documented on EMR Reaction Allergy Type Onset Date Status Keflex back pain Drug Allergy Active lisinopril Lisinopril Unknown Drug Allergy Activ e tramadol traMADol oral lesions Drug Allergy Acti ve REASON FOR VISIT Presents to office alone for profuse sweating. Said she wants to start over and figure out what is going on with her Medications Medication SIG (Take, Route, Frequency, Duration) Notes Start Date End Date Status Test Strips - Dx: 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 Once daily for 90 days 03/28/2024 Active Protonix 40 MG 1 tablet Orally Once a day for 30 days 03/23/2024 Active Simvastatin 20 MG 1 tablet Orally Once a day for 90 days Active Pen Rossiter 31G X 6 MM Use 5 needles kvng ly to inject Insulin DX E11.9 for 30 days Active Metoprolol Tartrate 50 MG 1 tablet with food Orally Twice a day for 30 days 03/19/2024 Active Multivitamin Active Naltrexone HCl 50 MG 1/4 tablet Orally O nce a day for 30 days 10/12/2024 Active Diclofenac Sodium 3 % 1 application Externally Twice a day 07/16/2024 Not-Takdiane g Lantus SoloStar 100 UNIT/ML Inject 60 units Subcutaneous once daily for 50 days Active Magnesium Oxide 400 MG 1 tablet with trish d Orally Once a day 09/06/2024 Active Cymbalta 60 MG 1 capsule Orally Onc e a day for 30 days 07/11/2024 Not-Taking Acetaminophen-Codeine 300-30 MG TAKE 1 TABLET BY MOUTH EVERY 6 HOURS NEEDED for 7 10/07/2024 Active Blood Glucose Monitor System w/Device use device Dx:E11.9 daily to monitor blood glucose level 03/28/2024 Active Cyclobenzaprine HCl 10 MG 1 tablet Orall y tid for 30 days 06/18/2024 Active Social History Tobacco Use: Social History [...] Problem Status W/U Status Risk Notes Problem Diaphoresis (90282672) Diaphoresis (R61) Active confirmed Problem Acute urinary tract infection (142541863) Acute UTI (N39.0) Active confirmed Vital Signs Blood pressure systolic 134 mm Hg 10/23/19 25 Blood pressure diastolic 88 mm Hg 025 Height 66 in 10/22/2024 Weight 218.2 lbs 10/22/2024 BMI 35.21 kg/m2 10/22/2024 Encounters Encounter Location Date Provider Diagnosis [facility] [address] [place] [address] 10/22/2024 Quincy Hoy Diaphoresis R61 ; Ac [place] UTI N39.0 ; Shaky R25.1 ; Essential Hypertension I10 and Bruising T14.8XXA Assessments Encounter Date Diagnosis (ICD Code) Assessment Notes Treatment Notes Treatment Clinical Notes Section Notes 10/22/2024 Diaphoresis (ICD-10 - R61) 10/22/2024 Acute UTI (ICD-10 - N39.0) 10/22/2024 Shaky (ICD-10 - R25.1) 10/22/2024 Essential Hypertension (ICD-10 - I10) 10/22/2024 Bruising (ICD-10 - T14.8XXA) Plan Of Treatment Pending Test Test Name Order Date HEMOGLOBIN A1C (GLYCO) 10/22/2024 IRON, TOTAL 10/22/2024 LIPID PANEL (CHOL/TRIG/HDL/LDL) 10/23/19 25 VITAMIN D, 25 LEVEL (TOTAL) 10/22/2024 Urinalysis Microscopic 10/22/2024 LACTATE 10/22/2024 CRP 10/22/2024 CULTURE URINE 10/22/2024 MAGNESIUM 10/22/2024 SED RATE WESTERGREN 10/22/2024 THYROID PANEL (T4/TSH/FREE T3) Blood Culture 1 10/22/2024 Blood Culture 2 10/22/2024 CMP (COMP MET CHAMBERLAIN) w/eGFR CKD-EPI 2024 CBC WITH DIFF 10/22/2024 Progress Notes * Susanne PINZON GDOB:[birth year] (59 yo F)Acc No.[id number]:10/22/2024 UNLOCKED PROGRESS NOTE Progress Note Patient: Susanne THURSTON Provider: Dolores Parry ([facility])MD :1965 A ge:59 Y S ex:Female Date:10/22/2024 Address:[address] [place], [place] [id number] Check In:10:01 AM ESTCheck O ut:11:36 AM EST Subjective: * Chief Complaints: * 1 . Presents to office alone for profuse sweating. Said she wants to start over and figure out what is going on with her. * HPI: G eneral: Stil with sweating - nno chills just feels cold beads of sweat on forhead and neckl - pretty muchy contatrnt for last 2 weeks no fever - sl cough - non producticie - fels more like a tickle - some stuffy nose - but that is better no gi symptosm no uti symptoms. * ROS: E ENT: hearing changes d enies. v isual changes d enies.?non-healing mouth sores d enies. s wollen glands or neck lumps d enies. h oarseness d enies. s ore throat d enies. d ifficulty swallowing d enies. n ose bleeds d enies. n melissa congestion d enies. e ar ache d enies. e ar discharge?denies. r inging in ears d enies. l ight sensitivity d enies. e ye pain d enies. b lurring d enies. e ye irritation d enies. d ouble vision d enies.?vision loss d enies. G eneral/Constitutional: Sweats: D enies. F atigue d enies. S leep problems d enies. A norexia d enies. M alaise d enies. W eight loss d enies.?Fatigue or Weakness d enies. F ever or Chills d enies. C ardiovascular: Shortness of Breath w/lying flat d enies. L ightheadedness/dizziness d enies. C hest tightness/ heavy pressure d enies. S welling of legs, ankles, or feet d enies. W aking up with shortness of breath d enies. C hest pain denies. P alpitations d enies. W eight gain d enies. R espiratory: Chronic or frequent cough d enies. C oughing up blood?denies. D ifficulty breathing d enies. P roductive cough d enies. S noring?denies. S hortness of breath that awakens from sleep (PND) d enies. C hest pain d enies. S putum production d enies. W heezing d enies. M usculoskeletal: Joint pain d enies. J oint Fluid d enies. B ack pain d enies. K nee pain d enies. N michelle pain d enies. J oint Stiffness d enies. M uscle cramps d enies. W eakness of muscles d enies. A rthritis d enies. M uscle aches d enies. P ain in shoulder(s) d enies. S wollen joints d enies. * Medical History: O bstructive sleep apnea (adult) (pediatric), Over weight, Osteoarthritis, Essential Hypertension, Well adult, Hyperlipidemia, Diabetes type 2, controlled, Anxiety, Hypertensive retinopathy, Fibromyalgia, Astigmatism, Depression, Qualitative platelet defects, Suicidal ideation. * Surgical History: T AH 2009, Exp. Lap 2009, LT Knee nerve radiofrequency ablation- Dr. Nassar 07/12/2023, bilateral oophorectomy , hysterectomy . * Hospitalization/Major Diagno stic Procedure: [place], High BP 03/2024. * Family History: F [...] Medications: T aking Acetaminophen-Codeine 300-30 MG Tablet TAKE 1 TABLET BY MOUTH EVERY 6 HOURS NEEDED , Taking Blood Glucose Monitor System w/Device Kit use device Dx:E11.9 daily to monitor blood glucose level , Taking Cyclobenzaprine HCl 10 MG Tablet 1 tablet Orally tid , Taking Lantus SoloStar(Insulin Glargine) 100 UNIT/ML Solution Pen-injector Inject 60 units Subcutaneous once daily , Taking Magnesium Oxide 400 MG Tablet 1 tablet with food Orally Once a day , Taking Metoprolol Tartrate 50 MG Tablet 1 tablet with food Orally Twice a day , Taking Multivitamin , Taking Naltrexone HCl 50 MG Tablet 1/4 tablet Orally Once a day , Taking Pen Rossiter 31G X 6 MM Miscellaneous Use 5 needles daily to inject Insulin DX E11.9 , Taking Protonix(Pantoprazole Sodium) 40 MG Tablet Delayed Release 1 tablet Orally Once a day , Taking Simvastatin 20 MG Tablet 1 tablet Orally Once a day , Taking Test Strips - - Dx: E11.9 Dx: Diabetes Type II Once daily , Not-Taking/PRN Cymbalta 60 MG Capsule Delayed Release Particles 1 capsule Orally Once a day , Not-Taking/PRN Diclofenac Sodium 3 % Gel 1 application Externally Twice a day , Discontinued levoFLOXacin 750 MG Tablet 1 tablet Orally Once a day , Discontinued MAGnesium-Oxide(Magnesium Oxide -Mg Supplement) 400 (240 Mg) MG Tablet 1 tablet with food Orally bid , Discontinued Tart Thapa , Discontinued Triamcinolone Acetonide 0.1 % Cream External , Medication List reviewed and reconciled with the patient * Allergies: K eflex: back pain - Allergy, Lisinopril: Allergy, traMADol: oral lesions - Allergy. Objective: * Vitals: W t:218.2lbs, Ht: 66 in, BP:134/88mm Hg, BMI:35.21Index, Ht-cm: 167.64 cm, Wt-k.97 kg. * Examination: P hysical Exam: GENERAL: w ell developed, well nourished, in no acute distress. HEAD: n ormocephalic/atraumatic. EYES: p upils equal, round and reactive to light, conjunctivae and sclerae normal. EARS: n o deformity or lesion of external ear, canals and TM appear normal bilaterally, TM's intact, not inflamed with normal light reflex, hearing grossly normal to conversational speech. NOSE: n o deformity, discharge, inflammation, or lesions.? MOUTH: m ucous membranes moist, normal oropharynx and posterior pharynx without lesions or exudates, tongue normal, dentition normal. NECK: n michelle supple, no masses or palpable cervical nodes, trachea midline, thyroid without nodules, masses, tenderness, or enlargement. CHEST: n o chest wall deformity, no chest wall tenderness.? LUNGS: n ormal respiratory effort and clear to auscultation, no wheezes, rales, or rhonchi, good air exchange. CARDIO: r egular rate and rhythm, normal S1 and S2, nor murmur, rub, or gallop. PULSES: n ormal capillary refill. ABDOMEN: s oft, non-distended, non-tender, no masses. MUSCULOSKELETAL: n o deformity or scoliosis noted, normal range of motion, joints normal, no erythema, edema, effusion, or ecchymosis. EXTREMITY: n o clubbing, cyanosis, edema, or deformity with normal ROM in both upper and lower bilateral extremities. NEUROLOGIC: g rossly normal. SKIN: n o rashes, ulcerations, or suspicious lesions. LYMPH NODES: n o cervical adenopathy, nodes normal. MENTAL STATUS: a lert and oriented x3, normal mood and affect. Assessment: * Assessment: 1. D iaphoresis - R61 (Primary) 2 . A cute UTI - N39.0 3 .?Shaky - R25.1 4 . E ssential Hypertension - I10 5 . B ruising - T14.8XXA Plan: * Treatment: 2. A cute UTI L AB: HEMOGLOBIN A1C (GLYCO) L AB: IRON, TOTAL L AB: LIPID PANEL (CHOL/TRIG/HDL/LDL) L AB: VITAMIN D, 25 LEVEL (TOTAL) L AB: THYROID PANEL (T4/TSH/FREE T3) L AB: CMP (COMP MET CHAMBERLAIN) w/eGFR CKD-EPI L AB: CBC WITH DIFF 3. S haky L AB: HEMOGLOBIN A1C (GLYCO) L AB: IRON, TOTAL L AB: LIPID PANEL (CHOL/TRIG/HDL/LDL) L AB: VITAMIN D, 25 LEVEL (TOTAL) L AB: THYROID PANEL (T4/TSH/FREE T3) L AB: CMP (COMP MET CHAMBERLAIN) w/eGFR CKD-EPI L AB: CBC WITH DIFF 4. E ssential Hypertension L AB: HEMOGLOBIN A1C (GLYCO) L AB: IRON, TOTAL L AB: LIPID PANEL (CHOL/TRIG/HDL/LDL) L AB: VITAMIN D, 25 LEVEL (TOTAL) L AB: THYROID PANEL (T4/TSH/FREE T3) L AB: CMP (COMP MET CHAMBERLAIN) w/eGFR CKD-EPI L AB: CBC WITH DIFF 5. B ruising L AB: HEMOGLOBIN A1C (GLYCO) L AB: IRON, TOTAL L AB: LIPID PANEL (CHOL/TRIG/HDL/LDL) L AB: VITAMIN D, 25 LEVEL (TOTAL) L AB: THYROID PANEL (T4/TSH/FREE T3) L AB: CMP (COMP MET CHAMBERLAIN) w/eGFR CKD-EPI L AB: CBC WITH DIFF * Preventive Medicine: Screenings/Counseling: B [place] ACTION PLAN Above Normal BMI Follow-up D ietary management education, guidance, and counseling See treatment section of progress note for complete details of management plan. * * Electronic signature of Quincy Parry MD, [phone] on 10/22/2024 at 11:49 AM EDT Sign off status: Pending Visit Status: Shasta PEPPER (Check Out) * Provider: Dolores Parry ([facility])MD Date: 0 10/22/2024 Generated for Printi ng/Faxing/eTransmitting on: 0 10/22/2024 11:49 AM EDT History and Physical Notes * HPI (History of Present Illness) Category Sub-Category Detail Notes Category Not es General Stil with sweating - nno chills just feels cold beads of sweat on forhead and neckl - pretty muchy contatrnt for last 2 weeks no fever - sl cough - non producticie - fels more like a tickle - some stuffy nose - but that is better no gi symptosm no uti symptoms Examination Category Sub-Category Detail Notes Category Not es Physical Exam GENERAL: well developed, well nourished, in no acute distress HEAD: normocephalic/atraum atic EYES: pupils equal, round and reactive to light, conjunctivae and sclerae normal EARS: no deformity or lesi on of external ear, canals and TM appear normal bilaterally, TM's intact, not inflamed with normal light reflex, hearing grossly normal to conversational speech NOSE: no deformity, discha rge, inflammation, or lesions MOUTH: mucous membranes thais st, normal oropharynx and posterior pharynx without lesions or exudates, tongue normal, dentition normal NECK: neck supple, no mass es or palpable cervical nodes, trachea midline, thyroid without nodules, masses, tenderness, or enlargement CHEST: no chest wall deform ity, no chest wall tenderness LUNGS: normal respiratory e ffort and clear to auscultation, no wheezes, rales, or rhonchi, good air exchange CARDIO: regular rate and rhy thm, normal S1 and S2, nor murmur, rub, or gallop PULSES: normal capillary ref ill ABDOMEN: soft, non-distended, non-tender, no masses RECTAL: MUSCULOSKELETAL: no deformity or scol iosis noted, normal range of motion, joints normal, no erythema, edema, effusion, or ecchymosis EXTREMITY: no clubbing, cyanosi s, edema, or deformity with normal ROM in both upper and lower bilateral extremities NEUROLOGIC: grossly normal SKIN: no rashes, ulceratio ns, or suspicious lesions LYMPH NODES: no cervical adenopat hy, nodes normal MENTAL STATUS: alert and oriented x 3, normal mood and affect
--- OUTSIDE RECORDS SUMMARY | 2024-10-22 11:49 | XMS_ITS | Clinical Summary ---
Author Organization [facility] Address [address] [place] [address] Care Team Providers Care Acoustic Engineer Name Role Phone Florencio Parry MD Primary Care Provider [phone] Allergies Active Allergy Reactions Criticality Noted Date [...] Encounters Date Type Department Care Team Description 09/20/2024 10:20 AM EDT Office Visit [facility] [address] [place] [id number] Adrien Jacques DPM Diabetes mellitus due to underlying condition with diabetic polyneuropathy, without long-term current use of insulin (HCC) (Primary Dx); Pain due to onychomycosis of toenails of both feet; Venous insufficiency 09/20/2024 Bamboo flowsheet [facility] [address] [facility] [address] [place] [address] Adrien Jacques DPM 09/20/2024 Travel from Last 3 Months Family History [...] - Temperature - - Respiratory Rate 18 09/20/2024 10:07 AM EDT Oxygen Saturation - - Inhaled Oxygen Concentration - - Weight 109 kg (240 lb) 09/20/2024 10:07 AM EDT Height 167.6 cm (5' 6 ) 09/20/2024 10:07 AM EDT Body Mass Index 38.74 09/20/2024 10:07 AM EDT Plan of Treatment Upcoming Encounters Date Type Department Care Team ([facility] st Contact Info) Description 12/13/2024 10:30 AM EDT Office Visit [facility] [address] [facility] [address] [place] [id number] Adrien Jacques DPM [address] [facility] [address] [place] [address] Health Maintenance Due Date Last Done Comments CT Colonography 1965 Colonoscopy 1965 Colorectal Cancer Screening 1965 FIT-DNA 1965 FIT 1965 FOBT 1965 Sigmoidoscopy 1965 Pap Smear 10/10/1984 Cervical Cancer Screening 10/10/1993 HPV/Cotest 10/10/1993 Mammogram 2003 Influenza Vaccine (#1) 2024 4, 11/01/2022, 12/07/2021, Additional history exists Insurance [employer] [place]ICA[place] Care Teams Acoustic Engineer Relationship Specialty Start Date End Date Florencio Parry MD [address] [place] [id number] PCP - General Family Medicine 02/02/23
--- OUTSIDE RECORDS SUMMARY | 2024-10-22 11:50 | XMS_ITS | Patient Health Record ---
Author Organization [facility] in [place] Address [address] [place] [address] Care Team Providers Care Systems Navigator Name Role Phone Quincy Parry Primary Care Provider Allergies Allergen (clinical drug ingredient) Drug/Non Drug Allergy documented on EMR Reaction Allergy Type Onset Date Status Keflex back pain Drug Allergy Active lisinopril Lisinopril Unknown Drug Allergy Activ e tramadol traMADol oral lesions Drug Allergy Acti ve Results Component Value Reference Range Notes GLYCOHEMOGLOBIN A1C Reviewed date:11/29/2023 06:13:59 PM Interpretation: Performing Lab: Notes/Report: [facility] , Glycohemoglobin A1C 6.6 4.5-6.2 % ADA RECOMMENDED LIMIT 4.0 - 6.0 ADA THERAPEUTIC TARGET < 7.0 ACTION SUGGESTED > 7.0 Estimated Average Glucose 143 Performing Lab: see note ML - [facility] LB LIPID PROFILE Reviewed date:11/29/2023 06:13:59 PM Interpretation: Performing Lab: Notes/Report: [facility] , Triglycerides 294 <=150 mg/dL Cholesterol [...] HIGH RISK Performing Lab: see note - [facility] PROF 14(COMP METB) Reviewed date:11/29/2023 06:13:59 PM Interpretation: Performing Lab: Notes/Report: [facility] , Sodium 142 136-145 mmol/L Potassium [...] 1.1 Performing Lab: see note ML - [facility] FREE T4 Reviewed date:11/29/2023 06:13:59 PM Interpretation: Performing Lab: Notes/Report: [facility] , Free T4 1.08 0.76-1.46 ng/dL Performing Lab: see note ML - [facility] BNP Reviewed date:03/17/2024 04:42:02 PM Interpretation: Performing Lab: Notes/Report: [facility] , NT Pro B Type Natriuretic Pept 18.0 <=900.0 pg/mL Performing Lab: see note - [facility] CBC AUTO DIFF Reviewed date:03/17/2024 04:42:02 PM Interpretation: Performing Lab: Notes/Report: [facility] , White Blood Count 8.8 4.0-11.0 [...] 3/uL Performing Lab: see note ML - [facility] LB PROF 14(COMP METB) Reviewed date:03/17/2024 04:42:02 PM Interpretation: Performing Lab: Notes/Report: [facility] , Sodium 134 136-145 mmol/L Potassium [...] 1.1 Performing Lab: see note ML - [facility] LB Prothrombin Time INR Reviewed date:03/17/2024 04:42:02 PM Interpretation: Performing Lab: Notes/Report: [facility] , Prothrombin Time 10.6 9.0-11.6 sec INR 1.00 DESIRED INR: 2.0-3.0 CONDITIONS NOT LISTED BELOW 2.5-3.5 FOR PROSTHETIC HEART VALVE REPLACEMENT 2.5-3.5 RECURRENT THROMBOSIS Performing Lab: see note - [facility] Troponin I High Sensitivity Reviewed date:03/17/2024 04:42:02 PM Interpretation: Performing Lab: Notes/Report: [facility] , Troponin I High Sensitivity <4.0 4.0-51.3 pg/mL CUT-OFF POINTS HAVE BEEN ESTABLISHED BASED ON THE FOURTH UNIVERSAL DEFINITION OF MYOCARDIAL INFARCTION. THE UPPER REFERENCE LIMIT (URL) OF TROPONIN, DEFINED THE 99TH PERCENTILE OF cTnI DISTRIBUTION IN A REFERENCE POPULATION, HAS BEEN CONFIRMED THE DECISION THRESHOLD FOR [place] DIAGNOSIS. 99TH PERCENTILE = 51.4 PG/ML NOTE: HIGH-SENSITIVITY TROPONIN ASSAY IS NOT INTENDED TO BE USED IN ISOLATION BUT SHOULD BE INTERPRETED IN CONJUNCTION WITH OTHER DIAGNOSTIC AND CLINICAL INFORMATION. Performing Lab: see note ML - [facility] LB ECG 12 lead Reviewed date:03/19/2024 09:03:34 PM Interpretation: Performing Lab: Notes/Report: Source Facility: [facility] [place] [address] [place] [address] Electrocardiograph Report Signed Patient: SUSANNE PINZON MR#: [id number] : 1965 Acct:[id number] Age/Sex: 58 / F ADM Date: 03/17/24 Loc: ER Attending Dr: Ordering Physician: Vielka Curran Date of Service: 03/17/24 Procedure(s): ECG 12 lead Accession Number(s): [id number] cc: [facility] Test Date: 2024-03-17 Pat Name: SUSANNE PINZON Department: Room: - Gender: Female 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 Signed By: 03/19/24 133 DD/ 1543 TD/TT: [employer]: [place] [address] Electrocardiograph Report Signed Patient: MADAN PINZON MR#: [id number] : 1965 Acct:[id number] Age/Sex: 58 / F ADM Date: 03/17/24 Loc: ER Attending Dr: Ordering Physician: Vielka Curran Date of Service: 03/17/24 Procedure(s): ECG 12 lead Accession Number(s): [id number] cc: [facility] Test Date: 2024-03-17 Pat Name: SUSANNE PINZON Department: 25 Room: - Gender: Female Loan Broker: : 1965 Requ ested By: JAJA PARRY Order Number: [id number] Reading MD: JAJA PARRY Measurements Intervals [place] Rate: 78 P: 64 CA: 158 QRS: 45 QRSD: 88 T: 44 QT: 390 QTc: 423 Interpretive Statements 1100 Sinus rhythm 9110 normal ECG Compared to ECG 01/13/2023 19:03:59 No significant changes Electronically Shandra d On 03-19-2024 13:34:01 EST by JAJA PARRY Dictated By: Linnea Paryr M.D. Signed By: 03/19/24 1334 DD/ 1543 TD/TT: [employer]: XR chest 1V Reviewed date:03/17/2024 05:05:33 PM Interpretation: Performing Lab: Notes/Report: Source Facility: [place] [address] XRay Report Signed Patient: SUSANNE PINZON MR#: [id number] : 1965 Acct:[id number] Age/Sex: 58 / F ADM Date: 03/17/24 Loc: ER Attending Dr: Ordering Physician: Vielka Curran Date of Service: 03/17/24 Procedure(s): XR chest 1V Accession Number(s): [id number] cc: Jaja Parry M.D.; Vielka Curran [place] [address] Patient Name: SUSANNE PINZON MRN: [id number] date: 1965 Sex: F Assigned Patient Location: ER Current Patient Location: ER Accession/Order Number: [id number] Exam Date: 03/17/2024 16:00 Report Date: 03/17/2024 [...] M.D. Signed By: 03/17/241657 DD/ 55 TD/TT: [employer]: [place] [address] XRay Report Signed Patient: MADAN PINZON MR#: [id number] : 1965 Acct:[id number] Age/Sex: 58 / F ADM Date: 03/17/24 Loc: ER Attending Dr: Ordering Physician: Vielka Curran Date of Service: 03/17/24 Procedure(s): XR chest 1V Accession Number(s): [id number] cc: Jaja Parry M.D. ; Vielka Curran [place] [address] Patient Name: SUSANNE PINZON MRN: [facility]:[id number] date: 1965 Sex: F Assigned Patient Location: ER Current Patient Loca tion: ER Accession/Order Numb er: [id number] Exam Date: 03/17/2024 16:00 Report Date: 03/17/2024 [...] Dictated By: Namita Ibarra M.D. Signed By: 03/17/248 DD/ 55 TD/TT: [employer]: Troponin I High Sensitivity Reviewed date:03/18/2024 04:31:56 PM Interpretation: Performing Lab: Notes/Report: [facility] , Troponin I High Sensitivity 5.0 4.0-51.3 pg/mL CUT-OFF POINTS HAVE BEEN ESTABLISHED BASED ON THE FOURTH UNIVERSAL DEFINITION OF MYOCARDIAL INFARCTION. THE UPPER REFERENCE LIMIT (URL) OF TROPONIN, DEFINED THE 99TH PERCENTILE OF cTnI DISTRIBUTION IN A REFERENCE POPULATION, HAS BEEN CONFIRMED THE DECISION THRESHOLD FOR [place] DIAGNOSIS. 99TH PERCENTILE = 51.4 PG/ML NOTE: HIGH-SENSITIVITY TROPONIN ASSAY IS NOT INTENDED TO BE USED IN ISOLATION BUT SHOULD BE INTERPRETED IN CONJUNCTION WITH OTHER DIAGNOSTIC AND CLINICAL INFORMATION. Performing Lab: see note ML - [facility] LB AMYLASE Reviewed date:03/22/2024 06:44:50 PM Interpretation: Performing Lab: Notes/Report: [facility] , Amylase 26 25-115 U/L Performing Lab: see note ML - [facility] LB CBC AUTO DIFF Reviewed date:03/22/2024 06:44:51 PM Interpretation: Performing Lab: Notes/Report: [facility] , White Blood Count 11.3 4.0-11.0 [...] Performing Lab: see note ML - [facility] LB LACTATE or LACTIC ACID Reviewed date:03/23/2024 08:52:54 AM Interpretation: Performing Lab: Notes/Report: [facility] , Lactate/Lactic Acid 2.6 0.4-2.0 mmol/L RESULTS CALLED TO Justina Hunter RN @[facility] [place] at 0023 Performing Lab: see note ML - [facility] LB LIPASE Reviewed date:03/22/2024 06:44:51 PM Interpretation: Performing Lab: Notes/Report: [facility] , Lipase 46.0 16.0-77.0 U/L Performing Lab: see note ML - [facility] LB PROF 14(COMP METB) Reviewed date:03/22/2024 06:44:51 PM Interpretation: Performing Lab: Notes/Report: [facility] , Sodium 138 136-145 mmol/L Potassium [...] Performing Lab: see note ML - [facility] LB UA (CLEAN or CATCH) TECHNICAL PROJECT LEAD or M ICRO IF IND. Reviewed date:03/22/2024 06:44:51 PM Interpretation: Performing Lab: Notes/Report: [facility] , Color Urine YELLOW YELLOW Clarity Urine CLEAR CLEAR Specific [place] Urine 1.025 1.005-1.025 pH Urine 6.0 5.0-9.0 Protein Urine NEGATIVE NEG/TRACE mg/dL Glucose Urine UA >=1000 NEGATIVE mg/dL Bilirubin Urine NEGATIVE NEGATIVE Ketones Urine TRACE NEGATIVE mg/dL Blood Urine NEGATIVE NEGATIVE Nitrite Urine NEGATIVE NEGATIVE Urobilinogen Urine 0.2 0.2-1.0 EU/dL Leukocyte Esterase Urine NEGATIVE NEGATIVE Urine Microscopic Indicated NO Performing Lab: see note - [facility] LB Troponin I High Sensitivity Reviewed date:03/22/2024 06:44:51 PM Interpretation: Performing Lab: Notes/Report: [facility] , Troponin I High Sensitivity 4.9 4.0-51.3 pg/mL CUT-OFF POINTS HAVE BEEN ESTABLISHED BASED ON THE FOURTH UNIVERSAL DEFINITION OF MYOCARDIAL INFARCTION. THE UPPER REFERENCE LIMIT (URL) OF TROPONIN, DEFINED THE 99TH PERCENTILE OF cTnI DISTRIBUTION IN A REFERENCE POPULATION, HAS BEEN CONFIRMED THE DECISION THRESHOLD FOR [place] DIAGNOSIS. 99TH PERCENTILE = 51.4 PG/ML NOTE: HIGH-SENSITIVITY TROPONIN ASSAY IS NOT INTENDED TO BE USED IN ISOLATION BUT SHOULD BE INTERPRETED IN CONJUNCTION WITH OTHER DIAGNOSTIC AND CLINICAL INFORMATION. Performing Lab: see note - [facility] LB ECG 12 lead Reviewed date:03/23/2024 08:52:54 AM Interpretation: Performing Lab: Notes/Report: Source Facility: [place] [address] Electrocardiograph Report Signed Patient: SUSANNE PINZON MR#: [id number] : 1965 Acct:[id number] Age/Sex: 58 / F ADM Date: 03/22/24 Loc: [place] 212-[address]: Jaja Parry M.D. Ordering Physician: Roro Portillo D.O. 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 Signed By: 03/23/24626 DD/ 28 TD/TT: [employer]: [place] [address] Electrocardiograph Report Signed Patient: MADAN PINZON MR#: [id number] : 1965 Acct:[id number] Age/Sex: 58 / F ADM Date: 03/22/24 Loc: [place] 212-[address]: Christal Parry M.D. Ordering Physician: Roro Portillo D.O. Date of Service: 03/22/24 Procedure(s): ECG 12 lead Accession Number(s): [id number] cc: [facility] Test Date: 2024-03-22 Pat Name: SUSANNE PINZON Department: 25 Room: - Gender: Female Loan Broker: : 1965 Requ ested By: JAJA PARRY Order Number: [id number] Reading MD: JAJA PARRY Measurements Intervals [place] Rate: 63 P: 63 CA: 150 QRS: 42 QRSD: 84 T: 34 QT: 414 QTc: 421 Interpretive Statements 1100 Sinus rhythm 8102 Low QRS voltage in chest leads 9120 atypical ECG Compared to ECG 03/21/2024 13:57:23 Low QRS voltage now present Electronically Shandra d On 03-23-2024 6:27:10 EST by JAJA PARRY Dictated By: Linnea Parry M.D. Signed By: 03/23/24626 DD/ 1529 TD/TT: [employer]: CT abdomen pelvis w con Reviewed date:03/22/2024 06:44:51 PM Interpretation: Performing Lab: Notes/Report: Source Facility: [place] [address] [place] [address] CT Scan Report Signed Patient: SUSANNE PINZON MR#: [id number] : 1965 Acct:[id number] Age/Sex: 58 / F ADM Date: 03/22/24 Loc: ER Attending Dr: Ordering Physician: Roro Portillo D.O. Date of Service: 03/22/24 Procedure(s): CT abdomen pelvis w con Accession Number(s): [id number] cc: Jaja Parry M.D. [place] [address] Patient Name: SUSANNE PINZON MRN: [facility]:[id number] date: 1965 Sex: F Assigned Patient Location: ER Current Patient Location: ER Accession/Order Number: [id number] Exam Date: 03/22/2024 15:35 Report Date: 03/22/2024 [...] By: Monse Dawson M.D. Signed By: 03/22/24 1611 DD/ 09 TD/TT: [employer]: [place] [address] CT Scan Report Signed Patient: MADAN PINZON MR#: [id number] : 1965 Acct:[id number] Age/Sex: 58 / F ADM Date: 03/22/24 Loc: ER Attending Dr: Ordering Physician: Roro Portillo D.O. Date of Service: 03/22/24 Procedure(s): CT abd omen pelvis w con Accession Number(s): [id number] cc: Jaja Parry M.D. [place] [address] Patient Name: SUSANNE PINZON MRN: [id number] date: 1965 Sex: F Assigned Patient Location: ER Current Patient Loca tion: ER Accession/Order Numb er: [id number] Exam Date: 03/22/2024 15:35 Report Date: 03/22/2024 [...] MONSE DAWSON Date: 03/22/2024 16:10 Dictated By: Dolores Dawson M.D. Signed By: 03/22/241612 DD/ 09 TD/TT: [employer]: CBC AUTO DIFF Reviewed date:03/23/2024 08:52:54 AM Interpretation: Performing Lab: Notes/Report: [facility] , White Blood Count 11.1 4.0-11.0 10 [...] 3/uL Performing Lab: see note ML - [facility] LB LACTATE or LACTIC ACID Reviewed date:03/23/2024 08:52:54 AM Interpretation: Performing Lab: Notes/Report: [facility] , Lactate/Lactic Acid 1.6 0.4-2.0 mmol/L Performing Lab: see note ML - [facility] PROF CHEM 8 (BAS METB) Reviewed date:03/23/2024 08:52:54 AM Interpretation: Performing Lab: Notes/Report: [facility] , Sodium 136 136-145 mmol/L Potassium [...] 8.6 8.5-10.1 mg/dL Performing Lab: see note - [facility] US right upper quadrant Reviewed date:03/25/2024 11:49:10 AM Interpretation: Performing Lab: Notes/Report: Source Facility: [place] [address] [place] [address] Ultrasound Report Signed Patient: SUSANNE PINZON MR#: [id number] : 1965 Acct:[id number] Age/Sex: 58 / F ADM Date: 03/22/24 Loc: [place] 212-[address]: Jaja Parry M.D. Ordering Physician: Jaja Parry M.D. Date of Service: 03/23/24 Procedure(s): US right upper quadrant Accession Number(s): [id number] cc: Jaja Parry M.D. [place] [id number] Patient Name: SUSANNE PINZON MRN: [id number] date: 1965 Sex: F Assigned Patient Location: MS Current Patient Location: MS Accession/Order Number: [id number] Exam Date: 03/23/2024 08:30 Report Date: 03/23/2024 [...] Dictated By: Monse Dawson M.D. Signed By: 03/23/2457 DD/ TD/TT: [employer]: [place] [address] Ultrasound Report Signed Patient: MADAN PINZON MR#: [id number] : 1965 Acct:[id number] Age/Sex: 58 / F ADM Date: 03/22/24 Loc: [place] 212-[address]: Christal Parry M.D. Ordering Physician: Jaja Parry M.D. Date of Service: 03/23/24 Procedure(s): US rig ht upper quadrant Accession Number(s): [id number] cc: Jaja Parry M.D. [place] [address] Patient Name: SUSANNE PINZON MRN: [id number] date: 1965 Sex: F Assigned Patient Location: MS Current Patient Loca tion: MS Accession/Order Numb er: [id number] Exam Date: 03/23/2024 08:30 Report Date: 03/23/2024 [...] Dawson M.D. Signed By: 03/23/2457 DD/ TD/TT: [employer]: CBC AUTO DIFF Reviewed date:04/13/2024 01:06:56 PM Interpretation: Performing Lab: Notes/Report: [facility] , White Blood Count 7.4 4.0-11.0 [...] Performing Lab: see note ML - [facility] LB CA echo doppler complete Reviewed date:04/22/2024 10:20:54 AM Interpretation: Performing Lab: Notes/Report: Source Facility: [place] [address] Cardiology Report Signed Patient: SUSANNE PINZON MR#: [id number] : 1965 Acct:[id number] Age/Sex: 58 / F ADM Date: 04/20/24 Loc: CARD Attending Dr: Jaja Parry M.D. Ordering Physician: Jaja Parry M.D. Date of Service: 04/20/24 Procedure(s): CA echo doppler complete Accession Number(s): [id number] cc: Jaja Parry M.D. Patient Name: SUSANNE PINZON MR#: [id number] : 1965 Exam Date: 04/20/2024 Ordering Doctor: [...] BARAJAS Signed By: 04/20/241726 DD/ 25 TD/TT: [employer]: [place] [address] Cardiology Report Signed Patient: MADAN PINZON MR#: [id number] : 1965 Acct:[id number] Age/Sex: 58 / F ADM Date: 04/20/24 Loc: CARD Attending Dr: Christal Parry M.D. Ordering Physician: Jaja Parry M.D. Date of Service: 04/20/24 Procedure(s): CA ech o doppler complete Accession Number(s): [id number] cc: Jaja Parry M.D. Patient Name: SUSANNE PINZON MR#: [id number] : 1965 Exam Date: 04/20/2024 Ordering Doctor: [...] BARAJAS Signed By: 04/20/241726 DD/ 25 TD/TT: [employer]: CBC AUTO DIFF Reviewed date:06/13/2024 05:17:46 PM Interpretation: Performing Lab: Notes/Report: [facility] , White Blood Count 13.4 4.0-11.0 [...] Performing Lab: see note ML - [facility] LB IRON Reviewed date:06/13/2024 05:17:46 PM Interpretation: Performing Lab: Notes/Report: [facility] , Iron 54.0 50.0-170.0 ug/dL Performing Lab: see note ML - [facility] LB CBC AUTO DIFF Reviewed date:09/05/2024 01:05:35 PM Interpretation: Performing Lab: Notes/Report: [facility] , White Blood Count 7.7 4.0-11.0 [...] 3/uL Performing Lab: see note ML - [facility] LB LIPASE Reviewed date:09/05/2024 01:05:35 PM Interpretation: Performing Lab: Notes/Report: [facility] , Lipase 23.0 16.0-77.0 U/L Performing Lab: see note ML - [facility] LB MAGNESIUM Reviewed date:09/05/2024 01:05:35 PM Interpretation: Performing Lab: Notes/Report: [facility] , Magnesium 1.3 1.8-2.4 mg/dL Performing Lab: see note ML - [facility] LB PROF 14(COMP METB) Reviewed date:09/05/2024 01:05:35 PM Interpretation: Performing Lab: Notes/Report: [facility] , Sodium 135 136-145 mmol/L Potassium [...] 0.9 Performing Lab: see note ML - [facility] LB UA (CLEAN or CATCH) TECHNICAL PROJECT LEAD or M ICRO IF IND. Reviewed date:09/05/2024 01:05:35 PM Interpretation: Performing Lab: Notes/Report: [facility] , Color Urine LT. YELLOW YELLOW Clarity Urine CLOUDY CLEAR Specific [place] Urine 1.020 1.005-1.025 pH Urine 6.0 5.0-9.0 Protein Urine 100 NEG/TRACE mg/dL Glucose Urine UA 100 NEGATIVE mg/dL Bilirubin Urine NEGATIVE NEGATIVE Ketones Urine NEGATIVE NEGATIVE mg/dL Blood Urine LARGE NEGATIVE Nitrite Urine NEGATIVE NEGATIVE Urobilinogen Urine 1.0 0.2-1.0 EU/dL Leukocyte Esterase Urine LARGE NEGATIVE Urine Microscopic Indicated YES Performing Lab: see note ML - [facility] LB Troponin I High Sensitivity Reviewed date:09/05/2024 01:05:35 PM Interpretation: Performing Lab: Notes/Report: [facility] , Troponin I High Sensitivity <4.0 4.0-51.3 pg/mL CUT-OFF POINTS HAVE BEEN ESTABLISHED BASED ON THE FOURTH UNIVERSAL DEFINITION OF MYOCARDIAL INFARCTION. THE UPPER REFERENCE LIMIT (URL) OF TROPONIN, DEFINED THE 99TH PERCENTILE OF cTnI DISTRIBUTION IN A REFERENCE POPULATION, HAS BEEN CONFIRMED THE DECISION THRESHOLD FOR [place] DIAGNOSIS. 99TH PERCENTILE = 51.4 PG/ML NOTE: HIGH-SENSITIVITY TROPONIN ASSAY IS NOT INTENDED TO BE USED IN ISOLATION BUT SHOULD BE INTERPRETED IN CONJUNCTION WITH OTHER DIAGNOSTIC AND CLINICAL INFORMATION. Performing Lab: see note - [facility] LB ECG 12 lead Reviewed date:09/07/2024 07:52:27 AM Interpretation: Performing Lab: Notes/Report: Source Facility: [place] [address] [place] [address] Electrocardiograph Report Signed Patient: SUSANNE PINZON MR#: [id number] : 1965 Acct:[id number] Age/Sex: 58 / F ADM Date: 09/05/24 Loc: ER Attending Dr: Ordering Physician: Vielka Curran Date of Service: 09/05/24 Procedure(s): ECG 12 lead Accession Number(s): [id number] cc: [facility] Test Date: 2024-09-05 Pat Name: SUSANNE PINZON Department: Room: - Gender: Female 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 Measurements Intervals [place] Rate: 103 P: 61 CA: 142 QRS: 41 QRSD: 90 T: 37 QT: 346 QTc: 406 Interpretive Statements 1120 Sinus tachycardia Otherwise normal ECG Compared to ECG 03/22/2024 15:29:49 No significant changes Electronically Signed On 09-07-2024 6:37:59 EDT by DIANA BARAJAS M.D. 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 Measurements Intervals [place] Rate: 103 P: 61 CA: 142 QRS: 41 QRSD: 90 T: 37 QT: 346 QTc: 406 Interpretive Statements 1120 Sinus tachycardia Otherwise normal ECG Compared to ECG 03/22/2024 15:29:49 No significant changes Electronically Shandra d On 09-07-2024 6:37:59 EDT by DIANA BARAJAS M.D. Dictated By: DIANA BARAJAS Signed By: 09/07/24 0638 DD/ 0832 TD/TT: [employer]: CT abdomen pelvis wo con Reviewed date:09/05/2024 01:05:35 PM Interpretation: Performing Lab: Notes/Report: Source Facility: [place] [address] [place] [address] CT Scan Report Signed Patient: SUSANNE PINZON MR#: [id number] : 1965 Acct:[id number] Age/Sex: 58 / F ADM Date: 09/05/24 Loc: ER Attending Dr: Ordering Physician: Vielka Curran Date of Service: 09/05/24 Procedure(s): CT abdomen pelvis wo con Accession Number(s): [id number] cc: Jaja Parry M.D. [facility] [place] [id number] Patient Name: SUSANNE PINZON MRN: [id number] date: 1965 Sex: F Assigned Patient Location: ER Current Patient Location: ER Accession/Order Number: [id number] Exam Date: 09/05/2024 10:22 Report Date: 09/05/2024 [...] Chandra Jr.OXiomy 09/05/2024 10:25 AM Dictation Location: [place] [address] Electronically authenticated by: [id number] Y Date: 09/05/2024 10:25 Dictated By: Freedom Foster M.D. Signed By: 09/05/24 1027 DD/ 1025 TD/TT: [employer]: [place] [address] CT Scan Report Signed Patient: MADAN PINZON MR#: [id number] : 1965 Acct:[id number] Age/Sex: 58 / F ADM Date: 09/05/24 Loc: ER Attending Dr: Ordering Physician: Vielka Curran Date of Service: 09/05/24 Procedure(s): CT abd omen pelvis wo con Accession Number(s): [id number] cc: Jaja Parry M.D. [place] [id number] Patient Name: SUSANNE PINZON MRN: [id number] date: 1965 Sex: F Assigned Patient Location: ER Current Patient Loca tion: ER Accession/Order Numb er: [id number] Exam Date: 09/05/2024 10:22 Report Date: 09/05/2024 10:25 At the request of: VIELKA CURRAN MD Procedure: CT abdome n pelvis wo con CT ABDOMEN AND PELVI S WITHOUT INTRAVENOUS CONTRAST: CLINICAL HISTORY: Ac quinault nausea vomiting chills diarrhea for 2 weeks. [...] Jr., D.O. 09/05/2024 10:25 AM Dictation Location: [place] [address] Electronically authenticated by: [id number] Y Date: 09/05/2024 10:25 Dictated By: Freedom Foster M.D. Signed By: 09/05/24 1027 DD/ 1025 TD/TT: [employer]: Urine Culture - [facility] Reviewed date:09/09/2024 09:33:14 PM Interpretation: Performing Lab: Notes/Report: [facility] , Urine Culture - [facility] See Below For Report Urine Culture - [facility] Testing performed at [facility] O:ESCCOL Isolated Urine Culture - [facility] [place] Count Organism: 1.1 Antibiotic Interpretation MADAN Status Urine Culture - [facility] [address], [place] [address] Urine Culture - [facility] Testing performed at [facility] O:ESCCOL Isolated Urine Culture - [facility] [place] Count Organism: 1.1 Antibiotic Interpretation MADAN Status Urine Culture - [facility] See Below For Report Urine Culture - [facility] Testing performed at [facility] O:ESCCOL Isolated Urine Culture - [facility] [place] Count Organism: 1.1 Antibiotic Interpretation MADAN Status Urine Culture - [facility] See Below For Report Urine [facility] - [facility] Testing performed at [facility] O:ESCCOL Isolated Urine Culture - [facility] [place] Count Organism: 1.1 Antibiotic Interpretation MADAN Status Urine Culture [facility] >100,000 Urine [facility] - [facility] Testing performed at [facility] O:ESCCOL Isolated Urine Culture - [facility] [place] Count Organism: 1.1 Antibiotic Interpretation MADAN Status Urine Culture - [facility] See Below For Report Urine Culture - [facility] Testing performed at [facility] O:ESCCOL Isolated Urine Culture - [facility] [place] Count Organism: 1.1 Antibiotic Interpretation MADAN Status Urine Culture - [facility] Amikacin S F Urine Culture - [facility] Testing performed at [facility] O:ESCCOL Isolated Urine Culture - [facility] [place] Count Organism: 1.1 Antibiotic Interpretation MADAN Status Urine Culture [facility] Amoxicillin/Clavula chelsea R F Urine Culture - [facility] Testing performed at [facility] O:ESCCOL Isolated Urine Culture - [facility] [place] Count Organism: 1.1 Antibiotic Interpretation MADAN Status Urine Culture - [facility] Ampicillin R F Urine Culture - [facility] Testing performed at [facility] O:ESCCOL Isolated Urine Culture - [facility] [place] Count Organism: 1.1 Antibiotic Interpretation MADAN Status Urine Culture - [facility] Aztreonam S F Urine Culture - [facility] Testing performed at [facility] O:ESCCOL Isolated Urine Culture - [facility] [place] Count Organism: 1.1 Antibiotic Interpretation MADAN Status Urine Culture - [facility] Ceftazidime S F Urine Culture - [facility] Testing performed at [facility] O:ESCCOL Isolated Urine Culture - [facility] [place] Count Organism: 1.1 Antibiotic Interpretation MADAN Status Urine Culture - [facility] Ceftazidime/Avibactam S F Urine Culture - [facility] Testing performed at [facility] O:ESCCOL Isolated Urine Culture - [facility] [place] Count Organism: 1.1 Antibiotic Interpretation MADAN Status Urine Culture - [facility] Ceftolozane/Tazobac motley S F Urine Culture - [facility] Testing performed at [facility] O:ESCCOL Isolated Urine Culture - [facility] [place] Count Organism: 1.1 Antibiotic Interpretation MADAN Status Urine Culture - [facility] Ciprofloxacin S F Urine Culture - [facility] Testing performed at [facility] O:ESCCOL Isolated Urine Culture - [facility] [place] Count Organism: 1.1 Antibiotic Interpretation MADAN Status Urine Culture - [facility] Ertapenem S F Urine Culture - [facility] Testing performed at [facility] O:ESCCOL Isolated Urine Culture - [facility] [place] Count Organism: 1.1 Antibiotic Interpretation MADAN Status Urine Culture - [facility] Gentamicin S F Urine Culture - [facility] Testing performed at [facility] O:ESCCOL Isolated Urine Culture - [facility] [place] Count Organism: 1.1 Antibiotic Interpretation MADAN Status Urine Culture [facility] Levofloxacin S F Urine Culture - [facility] Testing performed at [facility] O:ESCCOL Isolated Urine Culture - [facility] [place] Count Organism: 1.1 Antibiotic Interpretation MADAN Status Urine Culture [facility] Meropenem S F Urine Culture - [facility] Testing performed at [facility] O:ESCCOL Isolated Urine Culture - [facility] [place] Count Organism: 1.1 Antibiotic Interpretation MADAN Status Urine Culture - [facility] Meropenem/Vaborbactam S F Urine Culture - [facility] Testing performed at [facility] O:ESCCOL Isolated Urine Culture - [facility] [place] Count Organism: 1.1 Antibiotic Interpretation MADAN Status Urine Culture [facility] Nitrofurantoin S F Urine Culture - [facility] Testing performed at [facility] O:ESCCOL Isolated Urine Culture - [facility] [place] Count Organism: 1.1 Antibiotic Interpretation MADAN Status Urine Culture - [facility] Tetracycline S F Urine Culture - [facility] Testing performed at [facility] O:ESCCOL Isolated Urine Culture - [facility] [place] Count Organism: 1.1 Antibiotic Interpretation MADAN Status Urine Culture [facility] Tigecycline S F Urine Culture - [facility] Testing performed at [facility] O:ESCCOL Isolated Urine Culture - [facility] [place] Count Organism: 1.1 Antibiotic Interpretation MADAN Status Urine Culture - [facility] Tobramycin S F Urine Culture - [facility] Testing performed at [facility] O:ESCCOL Isolated Urine Culture - [facility] [place] Count Organism: 1.1 Antibiotic Interpretation MADAN Status Urine Culture - [facility] Ampicillin/Sulbactam I F Urine Culture - [facility] Testing performed at [facility] O:ESCCOL Isolated Urine Culture - [facility] [place] Count Organism: 1.1 Antibiotic Interpretation MADAN Status Urine Culture - [facility] Cefazolin I F Urine Culture - [facility] Testing performed at [facility] O:ESCCOL Isolated Urine Culture - [facility] [place] Count Organism: 1.1 Antibiotic Interpretation MADAN Status Urine Culture - [facility] Cefepime S F Urine Culture - [facility] Testing performed at [facility] O:ESCCOL Isolated Urine Culture - [facility] [place] Count Organism: 1.1 Antibiotic Interpretation MADAN Status Urine Culture - [facility] Ceftriaxone S F Urine Culture - [facility] Testing performed at [facility] O:ESCCOL Isolated Urine Culture - [facility] [place] Count Organism: 1.1 Antibiotic Interpretation MADAN Status Urine Culture - [facility] Cefuroxime S F Urine Culture - [facility] Testing performed at [facility] O:ESCCOL Isolated Urine Culture - [facility] [place] Count Organism: 1.1 Antibiotic Interpretation MADAN Status Urine Culture - [facility] Piperacillin/Tazoba ctam S F Urine Culture - [facility] Testing performed at [facility] O:ESCCOL Isolated Urine Culture - [facility] [place] Count Organism: 1.1 Antibiotic Interpretation MADAN Status Urine Culture - [facility] Trimethoprim/Sulfa S F Urine Culture - [facility] Testing performed at [facility] O:ESCCOL Isolated Urine Culture - [facility] [place] Count Organism: 1.1 Antibiotic Interpretation MADAN Status Performing Lab: see note ML - [facility] LB SEE REPORT - Layout Former Id information not found for OBX-specific supervisor lens generating legend URINE MICROSCOPIC ONLY Reviewed date:09/05/2024 01:05:35 PM Interpretation: Performing Lab: Notes/Report: [facility] , WBC Urine >100 NONE SEEN #/HPF RBC Urine 10-20 0-2 #/HPF Bacteria Urine LARGE NONE SEEN #/HPF Mucus Urine NONE SEEN NONE SEEN Squamous Epithelial Cell Urine RARE NONE/RARE #/LPF Crystals Seen? None Seen None Seen #/HPF Cast Seen? NONE SEEN NONE SEEN #/LPF Urine Culture Indicated YES[place] Performing Lab: see note ML - [facility] LB LACTATE or LACTIC ACID Reviewed date:09/05/2024 01:05:35 PM Interpretation: Performing Lab: Notes/Report: [facility] , Lactate/Lactic Acid 1.5 0.4-2.0 mmol/L Performing Lab: see note ML - [facility] LB MM tomosynthesis screening B I Reviewed date:08/26/2024 04:31:10 PM Interpretation: Performing Lab: Notes/Report: Source Facility: [facility] [place] [address] [place] [address] Mammography Report Signed Patient: SUSANNE PINZON MR#: [id number] : 1965 Acct:[id number] Age/Sex: 58 / F ADM Date: 08/24/24 Loc: MAMMO Attending Dr: Jaja Parry M.D. Ordering Physician: Jaja Parry M.D. Results: Date of Service: 08/24/24 Follow Up: Procedure(s): MM tomosynthesis screening BI Accession Number(s): [id number] cc: Jaja Parry M.D. Patient Name: SUSANNE PINZON MR#: [id number] : 1965 Exam Date: 08/24/2024 Ordering Doctor: [...] melanoma cancer at age 68. LOCATION: [facility] BREAST COMPOSITION: There are scattered areas [...] Signed By: 08/24/24 1044 DD/ 1043 TD/TT: [employer] Prospector: [place] [address] Mammography Report Signed Patient: MADAN PINZON MR#: [id number] : 1965 Acct:[id number] Age/Sex: 58 / F ADM Date: 08/24/24 Loc: MAMMO Attending Dr: Christal Parry M.D. Ordering Physician: Jaja Parry M.D. Results: Date of Service: 01/08 Follow Up: Procedure(s): MM tomosynthesis screening BI Accession Number(s): [id number] cc: Jaja Parry M.D. Patient Name: SUSANNE PINZON MR#: [id number] : 1965 Exam Date: 08/24/2024 Ordering Doctor: [...] melanoma cancer at age 68. LOCATION: [facility] BREAST COMPOSITION: There are scattered areas [...] EVALUATION IN 12 MONTHS. PLEASE NOTE: A NORM AL MAMMOGRAM DOES NOT EXCLUDE THE POSSIBILITY OF BREAST CANCER. A CLINICALLY SUSPICIOUS PALPABLE LUMP SHOULD BE BIOPSIED. Dictated by: Bernardo Camacho MD on 08/24/2024 at 10:39 Approved by: Bernardo Camacho MD on 08/24/2024 at 10:43 Dictated By: Bernardo Camacho M.D. Signed By: 08/24/24 1044 DD/ 1043 TD/TT: [employer]: VITAMIN D 25 [place] Reviewed date:06/13/2024 05:17:46 PM Interpretation: Performing Lab: Notes/Report: [facility] , Vitamin D 44.7 <20 ng/mL Vit D deficient 20-<30 ng/mL Vit D insufficient 30-100 ng/mL Vit D sufficient >100 ng/mL Potential Toxicity Performing Lab: see note ML - [facility] LB TSH Reviewed date:06/13/2024 05:17:46 PM Interpretation: Performing Lab: Notes/Report: [facility] , Thyroid Stimulating Hormone 0.458 0.358-3.740 uIU/mL Performing Lab: see note ML - [facility] LB T4 Reviewed date:06/13/2024 05:17:46 PM Interpretation: Performing Lab: Notes/Report: [facility] , T4 Thyroxine 7.20 4.80-13.90 ug/dL Performing Lab: see note ML - [facility] LB PROF 14(COMP METB) Reviewed date:06/13/2024 05:17:46 PM Interpretation: Performing Lab: Notes/Report: [facility] , Sodium 137 136-145 mmol/L Potassium [...] 1.3 Performing Lab: see note ML - [facility] LIPID PROFILE Reviewed date:06/13/2024 05:17:46 PM Interpretation: Performing Lab: Notes/Report: [facility] , Triglycerides 309 <=150 mg/dL Cholesterol [...] RISK Performing Lab: see note ML - [facility] LB GLYCOHEMOGLOBIN A1C Reviewed date:06/13/2024 05:17:46 PM Interpretation: Performing Lab: Notes/Report: [facility] , Glycohemoglobin A1C 11.5 4.5-6.2 % ADA RECOMMENDED LIMIT 4.0 - 6.0 ADA THERAPEUTIC TARGET < 7.0 ACTION SUGGESTED > 7.0 Estimated Average Glucose 283 Performing Lab: see note ML - [facility] FREE T3 Reviewed date:06/13/2024 05:17:46 PM Interpretation: Performing Lab: Notes/Report: [facility] , Free T3 2.12 2.18-3.98 pg/mL Performing Lab: see note ML - [facility] LB NM leilani perf SPECT rest str Reviewed date:04/25/2024 06:39:09 PM Interpretation: Performing Lab: Notes/Report: Source Facility: [facility] [place] [address] [place] [address] Nuclear Medicine Report Signed Patient: SUSANNE PINZON MR#: [id number] : 1965 Acct:[id number] Age/Sex: 58 / F ADM Date: 04/20/24 Loc: CARD Attending Dr: Jaja Parry M.D. Ordering Physician: aJja Parry M.D. Date of Service: 04/20/24 Procedure(s): NM leilani perf SPECT rest str Accession Number(s): [id number] cc: Jaja Parry M.D. Patient Name: SUSANNE PINZON MR#: [id number] : 1965 Exam Date: 04/20/2024 Ordering Doctor: [...] the study was pending per attending physician [facility] . For more details please see separate [...] Signed By: 04/25/24 1224 DD/ 1223 TD/TT: [employer]: [place] [address] Nuclear Medicine Report Signed Patient: MADAN PINZON MR#: [id number] : 1965 Acct:[id number] Age/Sex: 58 / F ADM Date: 04/20/24 Loc: CARD Attending Dr: Christal Parry M.D. Ordering Physician: Jaja Parry M.D. Date of Service: 04/20/24 Procedure(s): NM leilani perf SPECT rest str Accession Number(s): [id number] cc: Jaja Parry M.D. Patient Name: SUSANNE PINZON MR#: [id number] : 1965 Exam Date: 04/20/2024 Ordering Doctor: [...] study was pending pe r attending physician [facility] . For more details please see separate [...] Signed By: 04/25/24 1224 DD/ 1223 TD/TT: [employer]: Venous Blood Gas Reviewed date:04/15/2024 12:55:22 PM Interpretation: Performing Lab: Notes/Report: [facility] , pH VBG 7.389 7.330-7.430 PCO2 VBG 38.1 40.0-52.0 mmHg Performing Lab: see note ML - [facility] LB Manual Differential Reviewed date:04/15/2024 12:55:22 PM Interpretation: Performing Lab: Notes/Report: [facility] , Segmented Neutrophils % Manual 94.0 [...] Performing Lab: see note ML - [facility] LB UA RANDOM W or MICROSCOPIC Reviewed date:04/13/2024 01:06:56 PM Interpretation: Performing Lab: Notes/Report: [facility] , Color Urine LT. YELLOW YELLOW Clarity Urine CLEAR CLEAR Specific [place] Urine 1.020 1.005-1.025 pH Urine 5.5 5.0-9.0 [...] NO Performing Lab: see note ML - [facility] LB PROF 14(COMP METB) Reviewed date:04/15/2024 12:55:22 PM Interpretation: Performing Lab: Notes/Report: [facility] , Sodium 135 136-145 mmol/L Potassium [...] 1.2 Performing Lab: see note ML - [facility] LB LIPASE Reviewed date:04/15/2024 12:55:22 PM Interpretation: Performing Lab: Notes/Report: [facility] , Lipase 31.0 16.0-77.0 U/L Performing Lab: see note ML - [facility] LB LACTATE or LACTIC ACID Reviewed date:04/15/2024 12:55:22 PM Interpretation: Performing Lab: Notes/Report: [facility] , Lactate/Lactic Acid 1.5 0.4-2.0 mmol/L Performing Lab: see note ML - [facility] LB CBC AUTO DIFF Reviewed date:04/15/2024 12:55:22 PM Interpretation: Performing Lab: Notes/Report: [facility] , White Blood Count 6.3 4.0-11.0 [...] 12.2 9.5-13.5 fL Performing Lab: see note ML - [facility] LB PROF 14(COMP METB) Reviewed date:04/13/2024 01:06:56 PM Interpretation: Performing Lab: Notes/Report: [facility] , Sodium 133 136-145 mmol/L Potassium [...] 1.2 Performing Lab: see note ML - [facility] LB LIPASE Reviewed date:04/13/2024 01:06:56 PM Interpretation: Performing Lab: Notes/Report: [facility] , Lipase 61.0 16.0-77.0 U/L Performing Lab: see note ML - [facility] LB Blood Culture 2 Reviewed date:03/28/2024 10:01:42 PM Interpretation: Performing Lab: Notes/Report: [facility] , Blood Culture 2 See Below For Report Blood Culture 2 NG5D NO GROWTH AT 5 DAYS.^NO GROWTH AT 5 DAYS. Performing Lab: see note ML - [facility] LB Blood Culture 1 Reviewed date:03/28/2024 10:01:42 PM Interpretation: Performing Lab: Notes/Report: [facility] , Blood Culture 1 See Below For Report Blood Culture 1 NG5D NO GROWTH AT 5 DAYS.^NO GROWTH AT 5 DAYS. Performing Lab: see note ML - [facility] LB SARS-CoV-2 Ag* Reviewed date:03/22/2024 06:44:51 PM Interpretation: Performing Lab: Notes/Report: [facility] , SARS-CoV-2 Ag NEGATIVE NEGATIVE This [...] Performing Lab: see note ML - [facility] LB INFLUENZA A AND B AG Reviewed date:03/22/2024 06:44:51 PM Interpretation: Performing Lab: Notes/Report: [facility] , Influenza Virus A Antigen Negative [...] Performing Lab: see note ML - [facility] LB XR chest 1V Reviewed date:03/21/2024 05:16:30 PM Interpretation: Performing Lab: Notes/Report: Source Facility: [place] [address] XRay Report Signed Patient: SUSANNE PINZON MR#: [id number] : 1965 Acct:[id number] Age/Sex: 58 / F ADM Date: 03/21/24 Loc: ER Attending Dr: Ordering Physician: Jenna Frost Date of Service: 03/21/24 Procedure(s): XR chest 1V Accession Number(s): [id number] cc: Jaja Parry M.D.; Jenna Frost [place] [address] Patient Name: SUSANNE PINZON MRN: [id number] date: 1965 Sex: F Assigned Patient Location: ER Current Patient Location: ER Accession/Order Number: [id number] Exam Date: 03/21/2024 14:12 Report Date: 03/21/2024 [...] Dictated By: Kosta Harrison M.D. Signed By: 03/21/241435 DD/ 32 TD/TT: [employer]: [place] [address] XRay Report Signed Patient: MADAN PINZON MR#: [id number] : 1965 Acct:[id number] Age/Sex: 58 / F ADM Date: 03/21/24 Loc: ER Attending Dr: Ordering Physician: Jenna Frost Date of Service: 03/21/24 Procedure(s): XR chest 1V Accession Number(s): [id number] cc: Jaja Parry M.D. ; Jenna Frost [place] [id number] Patient Name: SUSANNE PINZON MRN: [id number] date: 1965 Sex: F Assigned Patient Location: ER Current Patient Loca tion: ER Accession/Order Numb er: [id number] Exam Date: 03/21/2024 14:12 Report Date: 03/21/2024 [...] Dictated By: Kosta Harrison M.D. Signed By: 03/21/241435 DD/ 32 TD/TT: [employer]: ECG 12 lead Reviewed date:03/23/2024 08:52:54 AM Interpretation: Performing Lab: Notes/Report: Source Facility: [place] [address] [place] [address] Electrocardiograph Report Signed Patient: SUSANNE PINZON MR#: [id number] : 1965 Acct:[id number] Age/Sex: 58 / F ADM Date: 03/21/24 Loc: ER Attending Dr: Ordering Physician: Jenna Frost Date of Service: 03/21/24 Procedure(s): ECG 12 lead Accession Number(s): [id number] cc: [facility] Test Date: 2024-03-21 Pat Name: SUSANNE PINZON Department: Room: - Gender: Female 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 Signed By: 03/23/24 0626 DD/ 1357 TD/TT: [employer]: SARS-CoV-2 Ag* Reviewed date:03/21/2024 05:16:30 PM Interpretation: Performing Lab: Notes/Report: [facility] , SARS-CoV-2 Ag NEGATIVE NEGATIVE This [...] Performing Lab: see note ML - [facility] LB Venous Blood Gas Reviewed date:03/21/2024 05:16:30 PM Interpretation: Performing Lab: Notes/Report: [facility] , pH VBG 7.427 7.330-7.430 PCO2 VBG 33.7 40.0-52.0 mmHg Performing Lab: see note ML - [facility] LB Troponin I High Sensitivity Reviewed date:03/21/2024 05:16:30 PM Interpretation: Performing Lab: Notes/Report: [facility] , Troponin I High Sensitivity 7.3 4.0-51.3 pg/mL CUT-OFF POINTS HAVE BEEN ESTABLISHED BASED ON THE FOURTH UNIVERSAL DEFINITION OF MYOCARDIAL INFARCTION. THE UPPER REFERENCE LIMIT (URL) OF TROPONIN, DEFINED THE 99TH PERCENTILE OF cTnI DISTRIBUTION IN A REFERENCE POPULATION, HAS BEEN CONFIRMED THE DECISION THRESHOLD FOR [place] DIAGNOSIS. 99TH PERCENTILE = 51.4 PG/ML NOTE: HIGH-SENSITIVITY TROPONIN ASSAY IS NOT INTENDED TO BE USED IN ISOLATION BUT SHOULD BE INTERPRETED IN CONJUNCTION WITH OTHER DIAGNOSTIC AND CLINICAL INFORMATION. Performing Lab: see note - [facility] Erythrocyte Sedimentation Ra te Reviewed date:03/21/2024 05:16:30 PM Interpretation: Performing Lab: Notes/Report: [facility] , Erythrocyte Sedimentation Rate 14 <=30 mm/hr Performing Lab: see note - [facility] Prothrombin Time INR Reviewed date:03/21/2024 05:16:30 PM Interpretation: Performing Lab: Notes/Report: [facility] , Prothrombin Time 11.1 9.0-11.6 sec INR 1.05 DESIRED INR: 2.0-3.0 CONDITIONS NOT LISTED BELOW 2.5-3.5 FOR PROSTHETIC HEART VALVE REPLACEMENT 2.5-3.5 RECURRENT THROMBOSIS Performing Lab: see note [facility] PROF 14(COMP METB) Reviewed date:03/21/2024 05:16:30 PM Interpretation: Performing Lab: Notes/Report: [facility] , Sodium 136 136-145 mmol/L Potassium [...] Ratio 1.1 Performing Lab: see note - [facility] LB LIPASE Reviewed date:03/21/2024 05:16:30 PM Interpretation: Performing Lab: Notes/Report: [facility] , Lipase 40.0 16.0-77.0 U/L Performing Lab: see note ML - [facility] LB LACTATE or LACTIC ACID Reviewed date:03/21/2024 05:16:30 PM Interpretation: Performing Lab: Notes/Report: [facility] , Lactate/Lactic Acid 2.6 0.4-2.0 mmol/L RESULT S CALLED TO JENNA SERRANO AT 1458 Performing Lab: see note ML - [facility] LB INFLUENZA A AND B AG Reviewed date:03/21/2024 05:16:30 PM Interpretation: Performing Lab: Notes/Report: [facility] , Influenza Virus A Antigen Negative [...] Performing Lab: see note ML - [facility] LB CRP Reviewed date:03/21/2024 05:16:30 PM Interpretation: Performing Lab: Notes/Report: [facility] , C Reactive Protein <0.50 <=0.50 mg/dL Performing Lab: see note ML - [facility] LB CBC AUTO DIFF Reviewed date:03/21/2024 05:16:30 PM Interpretation: Performing Lab: Notes/Report: [facility] , White Blood Count 12.6 4.0-11.0 [...] 10 3/uL Performing Lab: see note - [facility] LB BNP Reviewed date:03/21/2024 05:16:30 PM Interpretation: Performing Lab: Notes/Report: [facility] , NT Pro B Type Natriuretic Pept 70.0 <=900.0 pg/mL Performing Lab: see note ML - [facility] LB CT angio chest Reviewed date:03/18/2024 04:31:56 PM Interpretation: Performing Lab: Notes/Report: Source Facility: [facility] [place] [address] [place] [address] CT Scan Report Signed Patient: SUSANNE PINZON MR#: [id number] : 1965 Acct:[id number] Age/Sex: 58 / F ADM Date: 03/17/24 Loc: ER Attending Dr: Ordering Physician: Vielka Curran Date of Service: 03/17/24 Procedure(s): CT angio chest Accession Number(s): [id number] cc: Jaja Parry M.D. [place] [address] Patient Name: SUSANNE PINZON MRN: [id number] date: 1965 Sex: F Assigned Patient Location: ER Current Patient Location: ED.MAIN Accession/Order Number: [id number] Exam Date: 03/17/2024 17:12 Report Date: 03/17/2024 [...] M.D. Signed By: 03/17/241916 DD/ 13 TD/TT: [employer]: [place] [address] CT Scan Report Signed Patient: MADAN PINZON MR#: [id number] : 1965 Acct:[id number] Age/Sex: 58 / F ADM Date: 03/17/24 Loc: ER Attending Dr: Ordering Physician: Vielka Curran Date of Service: 03/17/24 Procedure(s): CT ang io chest Accession Number(s): [id number] cc: Jaja Parry M.D. The [address] [address] Patient Name: SUSANNE PINZON MRN: [id number] date: 1965 Sex: F Assigned Patient Location: ER Current Patient Loca tion: ED.MAIN Accession/Order Numb er: [id number] Exam Date: 03/17/2024 17:12 Report Date: 03/17/2024 [...] No suspicious lesions. UPPER ABDOMEN: No ac quinault finding MEDIASTINUM AND MUNA : Small hiatal [...] M.D. Signed By: 03/17/241916 DD/ 13 TD/TT: [employer]: TSH Reviewed date:11/29/2023 06:13:59 PM Interpretation: Performing Lab: Notes/Report: [facility] , Thyroid Stimulating Hormone 2.436 0.358-3.740 uIU/mL Performing Lab: see note - [facility] LB Urine Culture - [facility] Reviewed date:09/12/2024 11:09:48 PM Interpretation: Performing Lab: Notes/Report: [facility] , Urine Culture - [facility] See Below For Report Urine Culture - [facility] >100,000 colonies/ml mixed Urine Culture - [facility] bacterial skin contaminants Urine Culture - [facility] >100,000 colonies/ml mixed Urine Culture - [facility] 2 Days Urine Culture - [facility] >100,000 colonies/ml mixed Urine Culture - [facility] Urine Culture - [facility] >100,000 colonies/ml mixed [facility]rine Culture - [facility] Testing performed a [facility] Urine Culture - [facility] >100,000 colonies/ml mixed [facility] [address], [place] [address] Urine Culture - [facility] >100,000 colonies/ml mixed Performing Lab: see note [facility] LB URINE MICROSCOPIC ONLY Reviewed date:09/07/2024 07:52:27 AM Interpretation: Performing Lab: Notes/Report: [facility] , WBC Urine 5-10 NONE SEEN #/HPF RBC Urine >100 0-2 #/HPF Bacteria Urine SMALL NONE SEEN #/HPF Mucus Urine NONE SEEN NONE SEEN Squamous Epithelial Cell Urine RARE NONE/RARE #/LPF Crystals Seen? None Seen None Seen #/HPF Cast Seen? NONE SEEN NONE SEEN #/LPF Urine Culture Indicated YES-[facility] [place] Performing Lab: see note [facility] UA (CLEAN or CATCH) MICROSCO PIC IF INDICATE Reviewed date:09/07/2024 07:52:27 AM Interpretation: Performing Lab: Notes/Report: [facility] , Color Urine DK RED YELLOW Clarity Urine CLOUDY CLEAR Specific [place] Urine 1.015 1.005-1.025 pH Urine CI 5.0-9.0 Protein Urine CI NEG/TRACE mg/dL Glucose Urine UA CI NEGATIVE mg/dL Bilirubin Urine CI NEGATIVE Ketones Urine CI NEGATIVE mg/dL Blood Urine CI NEGATIVE Nitrite Urine CI NEGATIVE Urobilinogen Urine CI 0.2-1.0 EU/dL Leukocyte Esterase Urine CI NEGATIVE Urine Microscopic Indicated YES Performing Lab: see note ML - [facility] LB Reason For Referral No Information Medications Medication SIG (Take, Route, Frequency, Duration) Notes Start Date End Date Status Test Strips - Dx: 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 Once daily for 90 days 03/28/2024 Active Diclofenac Sodium 3 % 1 application Externally Twice a day 07/16/2024 Not-Takin g Lantus SoloStar 100 UNIT/ML Inject 60 units Subcutaneous once daily for 50 days Active Magnesium Oxide 400 MG 1 tablet with trish d Orally Once a day 09/06/2024 Active Acetaminophen-Codeine 300-30 MG TAKE 1 TABLET BY MOUTH EVERY 6 HOURS NEEDED for 7 10/07/2024 Active Blood Glucose Monitor System w/Device use device Dx:E11.9 daily to monitor blood glucose level 03/28/2024 Active Cyclobenzaprine HCl 10 MG 1 tablet Orall y tid for 30 days 06/18/2024 Active Cymbalta 60 MG 1 capsule Orally Onc e a day for 30 days 07/11/2024 Not-Taking Pen Dixon 31G X 6 MM Use 5 needles kvng ly to inject Insulin DX E11.9 for 30 days Active Protonix 40 MG 1 tablet Orally Once a day for 30 days 03/23/2024 Active Simvastatin 20 MG 1 tablet Orally Once a day for 90 days Active Metoprolol Tartrate 50 MG 1 tablet with food Orally Twice a day for 30 days 03/19/2024 Active Multivitamin Active Naltrexone HCl 50 MG 1/4 tablet Orally O nce a day for 30 days 10/12/2024 Active Social History Tobacco Use: Social History [...] Problem Status W/U Status Risk Notes Problem [id number] Obstructive slee p apnea (adult) (pediatric) (G47.33) Active confirmed Problem Fibromyalgia (896602502) Fibromyalgia (M79.7) Active confirmed Problem 834651879 Unspecified tear of unspecified meniscus, current injury, left knee, initial encounter (S83.207A) Active confirmed Problem Hyperlipidemia (04664954) Hyperlipidemia (E78.5) Active confirmed Problem Osteoarthritis (711929308) Osteoarthritis (M19.90) Active confirmed Problem Anxiety (55444422) Anxiety (F41.9) Active confi rmed Problem Hypertriglyceridemia (388571454) Hypertriglyceridemia (E78.1) Active confirmed Problem Type II diabetes mellitus well controlled (301926955) Diabetes type 2, controlled (E11.9) Active confirmed Problem Diarrhea (29414253) Diarrhea (R19.7) Active con firmed Problem Acute bronchitis (43262626) Acute bronchitis (J20.9) Active confirmed Problem Fatty liver (427646554) Fatty liver (K76.0) Active confirmed Problem Well adult (398416570) Well adult (Z00.00) Active confirmed Problem Leg pain (76596198) Leg pain (M79.606) Active c onfirmed Problem Dysphagia (17501065) Dysphagia (R13.10) Active confirmed Problem Essential hypertension (06842652) Hypertension, uncontrolled (I10) Active confirmed Problem Erythrocytosis (626439138) Erythrocytosis (D75.1) Active confirmed Problem Acute sinusitis (69378880) Acute sinus infection (J01.90) Active confirmed Problem Gastroenteritis (05203911) Gastroenteritis (K52.9) Active confirmed Problem Overweight (929484456) Over weight (E66.3) Active confirmed Problem Leukocytosis (006312692) Leukocytosis (D72.829) Active confirmed Problem Diaphoresis (20913602) Diaphoresis (R61) Active confirmed Problem Acute urinary tract infection (841344754) Acute UTI (N39.0) Active confirmed Problem Hypertensive retinopathy (0300774) Hypertensive retinopathy (H35.039) Active confirmed Problem Shaky (R25.1) Active confirmed Problem Essential hypertension (63129035) Essential Hypertension (I10) Active confirmed Problem Bruising (146296022) Bruising (T14.8XXA) Active confirmed Problem Osteoarthritis of knee (341159142) Knee osteoarthritis (M17.10) Active confirmed Problem Hyperglycemia due to diabetes mellitus (878105524) Hyperglycemia due to diabetes mellitus (E11.65) Active confirmed Vital Signs Heart Rate 77 /min 04/09/2024 Oximetry 99 % 04/09/2024 Blood pressure diastolic 88 mm Hg 10/22/2024 Height 66 in 10/22/2024 Blood pressure systolic 134 mm Hg 10/22/2024 Weight 218.2 lbs 10/22/2024 BMI 35.21 kg/m2 10/22/2024 Procedures Procedure Date Ordered Date Performed Result Body Sit e CARDIO Echocardiogram 03/27/2024 N/A *CARDIO Stress Test - Lexiscan Nuclear 03/19/2024 N/A Encounters Encounter Location Date Provider Diagnosis [facility] [address] [place] [address] 03/22/2024 Quincy Hoy Abdominal pain 789.[address] [address] 06/12/2024 Quincy Hoy Over weight E66.3 ; Essential Hypertension I10 ; Diabetes type 2, controlled E11.9 ; Obstructive sleep apnea (adult) (pediatric) G47.33 ; Myalgia M79.10 and Arthralgia M25.[address] [place] [address] 06/19/2024 Quincy Hoy Essential Hypertensi on I10 ; Hyperlipidemia E78.5 and Diabetes type 2, controlled E11.[address] [address] 04/09/2024 Quincy Hoy Obstructive sleep ap nabor (adult) (pediatric) G47.33 and Acute bronchitis J20.[address] [address] 07/16/2024 Quincy Hoy Well adult Z00.00 ; Obstructive sleep apnea (adult) (pediatric) G47.33 ; Essential Hypertension I10 ; Hyperlipidemia E78.5 ; Hyperglycemia due to diabetes mellitus E11.65 and Knee osteoarthritis M17.[address] [address] 03/27/2024 Quincy Hoy Essential Hypertensi on I10 ; Diabetes type 2, controlled E11.9 and Dysphagia R13.[address] [place] [address] 03/19/2024 Quincy Hoy Chest pain R07.9 [facility] [address] [place] [facility] [place] [address] 09/06/2024 Quincy Hoy UTI (urinary tract infection), uncomplicated N39.0 and Dysuria R30.0 [facility] [address] [place] [facility] [place] [address] 10/22/2024 Qiuncy Hoy Diaphoresis R61 ; Ac quinault UTI N39.0 ; Shaky R25.1 ; Essential Hypertension I10 and Bruising T14.8XXA [facility] [address] [place] [facility] [place] [address] 10/23/2023 [facility] [address] [place] [facility] [place] [address] 11/28/2023 Quincy Gonzalezy Diabetes type 2, controlled E11.9 ; Hyperlipidemia E78.5 ; Other fatigue R53.83 and Encounter for screening for malignant neoplasm of colon Z12.11 [facility] [address] [place] [facility] [place] [address] 11/29/2023 [facility] [address] [place] [facility] [place] [address] 12/08/2023 Quincy Hoy Leg pain M79.606 [facility] [address] [place] [address] 12/23/2023 Quincy lucas [facility] [address] [place] [facility] [place] [address] 12/26/2023 [facility] [address] [place] [facility] [place] [address] 01/17/2024 [facility] [address] [place] [facility] [place] [address] 03/20/2024 [facility] [address] [place] [facility] [place] [address] 03/21/2024 [facility] [address] [place] [place] [address] 03/21/2024 Quincy Parry [facility] [address] [facility] [place] [address] 03/23/2024 Quincy Parry [facility] [address] [facility] [place] [address] 03/25/2024 Quincy Parry Fatty liver K76.0 [facility] [address] [facility] [place] [address] 03/27/2024 Quincy Parry [facility] [address] [facility] [place] [address] 03/28/2024 Quincy Parry [facility] [address] [facility] [place] [address] 03/28/2024 Quincy Parry [facility] [address] [facility] [place] [address] 04/09/2024 Quincy Parry [facility] [address] [facility] [place] [address] 04/12/2024 Quincy Parry [facility] [address] [facility] [place] [address] 04/15/2024 Quincy Parry Essential Hypertensi on I10 [facility] [address] [facility] [place] [address] 04/22/2024 Quincy Parry [facility] [address] [facility] [place] [address] 04/25/2024 Quincy Parry [facility] [address] [facility] [address] [place] [address] 04/30/2024 Quincy Parry [facility] [address] [facility] [place] [address] 06/04/2024 Quincy Parry [facility] [address] [facility] [place] [address] 06/13/2024 Quincy Parry Over weight E66.3 [facility] [address] [facility] [place] [address] 06/18/2024 Quincy Parry [facility] [address] [facility] [place] [address] 06/22/2024 Quincy Hoy [facility] [address] [facility] [place] [address] 06/25/2024 Quincy Hoy Essential Hypertensi on I10 [facility] [address] [facility] [place] [address] 06/26/2024 Quincy Hoy [facility] [address] [facility] [place] [address] 07/11/2024 Quincy Hoy [facility] [address] [facility] [place] [address] 07/19/2024 Quincy Hoy Over weight E66.3 [facility] [address] [facility] [place] [address] 07/23/2024 Quincy Hoy Over weight E66.3 [facility] [address] [facility] [place] [address] 08/06/2024 Quincy Hoy Knee osteoarthritis M17.10 [facility] [address] [facility] [place] [address] 08/10/2024 Quincy Hoy Over weight E66.3 [facility] [address] [facility] [place] [address] 08/14/2024 Quincy Hoy [facility] [address] [facility] [place] [address] 08/26/2024 Quincy Carlosy [facility] [address] [facility] [place] [address] 09/05/2024 Quincy Gonzalezy Diabetes type 2, controlled E11.9 [facility] [address] [facility] [place] [address] 09/05/2024 Quincy Hoy [facility] [address] [facility] [place] [address] 09/07/2024 Quincy Hoy [facility] [address] [facility] [place] [address] 09/09/2024 Quincy Carlosy [facility] [address] [facility] [place] [address] 09/11/2024 Quincy Parry [facility] [address] [place] [address] 10/12/2024 Quincy Parry [facility] [address] [place] [address] 06/26/2024 Quincy Parry Essential Hypertensi on I10 Assessments Encounter Date Diagnosis (ICD Code) Assessment Notes Treatment Notes Treatment Clinical Notes Section Notes 03/27/2024 Essential Hypertension (ICD-10 - I10) 03/27/2024 [...] E66.3) 06/12/2024 Essential Hypertension (ICD-10 - I10) 10/22/2024 Diaphoresis (ICD-10 - R61) 10/22/2024 Acute UTI (ICD-10 - N39.0) 10/22/2024 Shaky (ICD-10 - R25.1) 10/22/2024 Essential Hypertension (ICD-10 - I10) 10/22/2024 Bruising (ICD-10 - T14.8XXA) 11/28/2023 Diabetes type 2, controlled (ICD-10 - [...] Diabetes type 2, controlled (ICD-10 - E11.9) 06/19/2024 Essential Hypertension (ICD-10 - I10) 06/19/2024 [...] until they are finished. You can use etyh-ghk-xneuymt acetaminophen or ibuprofen if needed for pain. You should follow up with your Primary Care Physician or return to clinic if not improving in the next 3-5 days. 09/06/2024 Dysuria (ICD-10 - R30.0) 06/19/2024 Diabetes [...] CULTURE, STOOL 12/15/2022 HEMOGLOBIN A1C (GLYCO) 06/12/2024 HEMOGLOBIN A1C (GLYCO) 10/22/2024 IRON, TOTAL 10/22/2024 IRON, TOTAL 06/12/2024 LIPID PANEL (CHOL/TRIG/HDL/LDL) 06/13/19 25 LIPID PANEL (CHOL/TRIG/HDL/LDL) 10/23/19 25 VITAMIN D, 25 LEVEL (TOTAL) 06/12/2024 VITAMIN D, 25 LEVEL (TOTAL) 10/22/2024 T3 FREE, T4 FREE and TSH 09/23/2022 CARDIO Echocardiogram 03/27/2024 Urinalysis Microscopic 10/22/2024 FECAL OCCULT BLOOD 11/28/2023 LACTATE 10/22/2024 C DIFF TOX PCR STOOL 12/15/2022 PT and PTT 03/25/2024 STOOL OCCULT BLOOD 06/12/2024 BNP 09/05/2024 CBC AUTO DIFF 11/28/2023 CBC AUTO DIFF 09/23/2022 CRP 10/22/2024 CULTURE URINE 10/22/2024 GLYCOHEMOGLOBIN A1C 09/23/2022 LIPID PROFILE 09/23/2022 LIVER PROFILE 03/25/2024 MAGNESIUM 10/22/2024 SED RATE WESTERGREN 10/22/2024 THYROID PROFILE WITH TSH 11/28/2023 US LAZARO DOP LEG RT 10/21/2023 THYROID PANEL (T4/TSH/FREE T3) THYROID PANEL (T4/TSH/FREE T3) Blood Culture 1 10/22/2024 Blood Culture 2 10/22/2024 *CARDIO Stress Test - Lexiscan Nuclear 0 03/19/2024 CMP (COMP MET CHAMBERLAIN) w/eGFR CKD-EPI 2024 CMP (COMP MET CHAMBERLAIN) w/eGFR CKD-EPI 2024 CBC WITH DIFF 06/12/2024 CBC WITH DIFF 10/22/2024 Insurance Providers Payer Name Payer Address Payer Phone Subscriber Number Group Number Insured Name Patient Relationship to Insured Coverage Start Date Coverage End Date [employer] [place] [employer] [address] [address] [place] [address] [id number] Susanne Pinzon Self - patient is the [...] Surgical History Surgery Date(Month/Year) Exp. Lap 2009 hysterectomy bilateral oophorectomy LT Knee nerve radiofrequency ablation- Dolores Nassar 07/12/2023 [facility] 2009 Hospitalization History Reason Date(Month/Year) Pleurisy, High BP 03/2024
--- OUTSIDE RECORDS SUMMARY | 2024-10-22 12:00 | XMS_ITS | CCD ---
Author Organization [facility] Care Team Providers Care Hairspring Adjuster Name Role Phone Dorys Flannery Unavailable Liliya [...] HOY ., DR WILKINSON Primary Care Unavailable JAYLINEBER, DR NOHEMY Johnson Consulting Unavailable LILIYA HUTTON Consulting Unavailable HUDSON GU Admitting Unavailable HUDSON GU Attending Unavailable FUENTES ., DR WILKINSON Primary Care Unavailable MD Jaja Parry Primary Care Provider MD Gregg Nassar Attending Provider MD Jaja Parry Primary Care Provider MD Gregg Nassar Attending Provider Jaja Parry MD Primary Care Provider Jaja Parry MD Primary Care Provider Gregg Nassar MD Attending Provider [phone] Jaja Parry MD Primary Care Provider Gregg Nassar MD Attending Provider Gregg Nassar MD Other Provider Vielka Galeano MD Attending Provider Jonathan العلي MD Attending Provider Vielka Galeano Attending Unavailable Vielka Galeano Admitting Unavailable Jaja Parry Primary Care Unavailable Gregg Nassar Attending Unavailable Gregg Nassar Admitting Unavailable Gregg Nassar Admitting Unavailable Jaja Parry Primary Care Unavailable Gregg Nassar Attending Unavailable Jaja Parry Primary Care Unavailable Gregg Nassar Attending Unavailable Gregg Nassar Admitting Unavailable Zohra, Jonathan Attending Unavailable Zohra, Jonathan Admitting Unavailable Kanani DDS, Dolly Unavailable Unavailable Kanrand DDS, Dolly Attending Unavailable Jaja Parry MD Primary Care Unavailable ADRIEN JACQUES Attending Unavailable ARDIEN JACQUES Attending Unavailable Kanani DDS, Dolly Unavailable Unavailable Allergies Allergy Classification Reported Allergen(s) Allergy Type Date of Onset Reaction(s) Facility Angiotensin Converting Enzyme (ROSS) Inhibitors (1 source) Lisinopril Drug Allergy 4 [facility] Cephalosporins (antibiotic) (1 source) Cephalexin Drug Allergy 4 Unknown Reaction [facility] (5 sources) Cephalexin; Translations: [Keflex] Drug Allergy 4 Unknown [facility] (1 source) Corticosteroids Drug allergy (disorder) 4 [facility] (1 source) DULoxetine Drug Allergy 4 [facility] (17 sources) Cephalexin; Translations: [cephalexin] Drug Allergy 3 Unknown Reaction [facility] (17 sources) Lisinopril; Translations: [lisinopril] Drug Allergy 3 [facility] Medications Current Medications Medication Drug Class(es) Dates Sig (Normalized) Sig (Original) acetaminophen 300 mg / codeine phosphate 30 mg oral tablet (5 sources) Opioid Agonist Start: 08-13-2024 ascorbic acid 60 mg / cholecalciferol 0.01 mg / folic acid 0.3 mg / niacin 13.5 mg / riboflavin 1.2 mg / sodium fluoride 0.55 mg / thiamine 1.05 mg / vitamin a 0.75 mg / vitamin b12 0.0045 mg / vitamin b6 1.05 mg / vitamin e 6.75 mg chewable tablet (6 sources) Nicotinic Acid, Vitamin A, Vitamin B12, Vitamin D, Vitamin C Pediatric Multivitamins-Fl (MultiVitamin + Fluoride) 0.25 MG chewable tablet Multivitamin Active cyclobenzaprine hydrochloride 10 mg oral tablet (7 sources) Muscle Relaxant Start: 07-11-2024 take 1 tablet by mouth three times daily as needed for muscle spasms DULoxetine 60 mg delayed release oral capsule (6 sources) Serotonin and Norepinephrine Reuptake Inhibitor Start: 07-24-2024 take 1 capsule by mouth once daily 3 ml insulin glargine 100 unt/ml pen injector (7 sources) Insulin Analog Start: 07-11-2024 Start: 07-11-2024 [...] Active metoprolol tartrate 50 mg oral tablet (7 sources) beta-Adrenergic Jeremy Start: 07-11-2024 take 1 tablet by mouth twice daily multivit with min-folic acid (6 sources) Start: 07-11-2024 take 1 tablet by [...] pantoprazole 40 mg delayed release oral tablet (5 sources) Proton Pump Inhibitor Start: 07-11-2024 take 1 tablet by mouth once Pantoprazole 40 mg tablet,delayed release (DR/EC) (2 sources) Start: 07-11-2024 take 1 tablet by mouth once Pantoprazole 40 mg tablet,delayed release (DR/EC) Active 40 MG PO Once July 11, 2024 12:00am simvastatin 20 mg oral tablet (17 sources) HMG-CoA Reductase Inhibitor Start: 07-11-2024 take 1 tablet by mouth once daily Simvastatin Acti ve Tart Thapa (4 sources) Tart Thapa Acti ve Tart Thapa 1200 MG capsule (6 sources) Tart Thapa 1200 MG capsule Tart Thapa Active Completed/Discontinued Medications Medication Drug Class(es) Dates Sig (Normalized) Sig (Original) amoxicillin 500 mg oral capsule (1 source) Penicillin-class Antibacterial Start: 09-11-2024 End: 09-17-2024 take 1 capsule by mouth every eight hours amoxicillin 500 mg capsule take 1 capsule by oral route every 8 hours 500 MG - No Longer Active ARIPiprazole 5 mg oral tablet (20 sources) Atypical Antipsychotic Start: 05-09-2023 End: 07-11-2024 take 1 tablet by mouth once daily Aripiprazole 5 mg tablet Discontinued 5 MG PO Daily May 09, 2023 12:00am July 11, 2024 10:48am FreeTextSi tablet Orally Once a day; Note: Source Status: Taking; Provider: Marga Flores ( ) Gabe Active 24 hr buPROPion hydrochloride 300 mg extended release oral tablet (20 sources) Aminoketone Start: 05-09-2023 End: 07-11-2024 take [...] day Active empagliflozin 25 mg oral tablet (19 sources) Sodium-Glucose Cotransporter 2 Inhibitor Start: 05-09-2023 End: 07-11-2024 take 1 tablet by mouth once daily Empagliflozin (Jardiance) 25 mg tablet Discontinued 25 MG PO Daily May 09, 2023 12:00am July 11, 2024 10:47am Start: 04-16-2022 take 10 mg by mouth in the morning Jardiance 10 MG Take 10 mg by mouth in the morning. 04/16/2022 Active metFORMIN hydrochloride 500 mg oral tablet (20 sources) Biguanide Start: 05-09-2023 End: 07-11-2024 take [...] Ac tive nabumetone 500 mg oral tablet (15 sources) Nonsteroidal Anti-inflammatory Drug Start: 05-09-2023 End: [...] day Active pioglitazone 45 mg oral tablet (20 sources) Peroxisome Proliferator Receptor alpha Agonist, Peroxisome Proliferator Receptor gamma Agonist, Thiazolidinedione Start: 05-09-2023 End: 07-11-2024 take 1 tablet by mouth once daily Pioglitazone 45 mg tablet Discontinued 45 MG PO Daily May 09, 2023 12:00am July 11, 2024 10:47am FreeTextSi tablet Orally Once a day; Note: Source Status: Taking; Provider: Marga Flores ( ) Actos Active sertraline 100 mg oral tablet (20 sources) Serotonin Reuptake Inhibitor Start: 05-09-2023 End: 07-11-2024 take 1 tablet by mouth once daily Sertraline 100 mg tablet Discontinued 100 MG PO Daily May 09, 2023 12:00am July 11, 2024 10:47am FreeTextSi tablet Orally Once a day; Note: Source Status: Taking; Provider: Marga Flores ( ) Zoloft Active SITagliptin 100 mg oral tablet (20 sources) Dipeptidyl Peptidase 4 Inhibitor Start: 05-09-2023 End: 07-11-2024 take 1 tablet by mouth once daily Sitagliptin Phosphate 100 mg tablet Discontinued 1 TAB PO Daily May 09, 2023 12:00am July 11, 2024 10:47am FreeTextSi tablet Orally Once a day; Note: Source Status: Taking; Provider: Marga Flores ( ) traMADol hydrochloride 50 mg oral tablet (20 sources) Opioid Agonist Start: 10-13-2023 End: 08-13-2024 take 1 tablet by mouth twice daily as needed for pain Tramadol 50 mg tablet Discontinued 50 MG PO Twice daily as needed for pain 30 15 October 13, 2023 12:00am August 13, 2024 8:25am Start: 05-12-2023 End: 07-12-2023 take 1 tablet by mouth every four to six hours as needed for pain Tramadol 50 mg tablet Discontinued 50 MG PO EVERY 4-6 HOURS as needed for pain 42 7 May 12, 2023 12:00am July 12, 2023 9:53am dispense #42 (forty two) DX: S83.207A triamcinolone acetonide 40 mg/ml injectable suspension (3 sources) Corticosteroid Start: 03-31-2022 Kenalog-40 14 Jul, 2022 40 mg Vit C-S.Srsjdt-Qfrlsa-Nsuwm Sd (Tart Thapa) 71-176-78-75-20 mg capsule (11 sources) Start: 07-12-2023 End: 07-24-2024 Vit C-S.Adboyw-Botakg-Rzppe Sd (Tart Thapa) 99-843-95-75-20 mg capsule Discontinued CAP PO July 12, 2023 12:00am July 24, 2024 9:24am Start: 07-12-2023 Vit C-S.Thapa -Celery-Grape Sd (Tart Thapa) 97-080-28-75-20 mg capsule Active CAP PO July 12, 2023 12:00am Problems Active Problems Problem Classification Problem Date Documented Date Episodic/Chronic Diabetes mellitus with complications (5 sources) Type 2 diabetes mellitus with hyperglycemia; [...] knee, subsequent encounter] Onset: 02-25-2022 Episodic Mycoses (4 sources) Pain in toe; Translations: [Tinea unguium] 07-12-2024 Episodic Osteoarthritis (20 sources) Osteoarthritis of left knee joint; Translations: [Unilateral primary osteoarthritis, left knee] Onset: 03-09-2022 Chronic Other connective tissue disease (20 sources) Fibromyalgia; Translations: [Fibromyalgia] 07-11-2024 Episodic Other connective tissue disease (2 sources) Fibromyalgia; Translations: [Myalgia and myositis, unspecified] 07-11-2024 Episodic Other diseases of veins and lymphatics (4 sources) Vascular insufficiency; Translations: [Venous insufficiency (chronic) (peripheral)] 07-12-2024 Episodic Other nervous system disorders (20 sources) Chronic pain; Translations: [Other chronic pain] 06-30-2023 Chronic Other nervous system disorders (10 sources) Other chronic pain; Translations: [Other chronic pain] Onset: 07-24-2024 06-30-2023 Chronic Other non-traumatic joint disorders (20 sources) Pain in unspecified knee; Translations: [Knee pain] 06-17-2023 Episodic Other screening for suspected conditions (not mental disorders or infectious disease) (5 sources) Encounter for screening for dental disorders; Translations: [Encounter for screening for dental disorders] Onset: 08-27-2024 08-27-2024 Episodic Residual codes; unclassified (4 sources) Obstructive sleep apnea (adult) (pediatric); Translations: [OBSTRUCTIVE SLEEP APNEA] Onset: 06-23-2022 Chronic Superficial injury; contusion (20 sources) Contusion of left knee, initial encounter; Translations: [Contusion of left knee] Episodic Unclassified (5 sources) Call Dr. Horne office to schedule [...] LOW LT LEG INIT] Onset: 02-25-2022 Episodic Unclassified (1 source) ext (chief complaint) Onset: 08-27-2024 Unclassified (1 source) DL (chief complaint) Onset: 09-11-2024 Viral infection (1 source) COVID-19 Onset: 2021 Resolved: 2021 Results Test Name Value Interpretation Reference Range Facility Urine Cultureon 09-06-2024 Bacteria identified Cx Nom (U) >100,000 colonies/ml mixed bacterial skin contaminants 2 Days PERFORMED BY: [place] [address] [place] [address] PATHOLOGIST FINAL EXPENSE AGENT RUBIA ZUNIGA M.D. Normal [facility] Comment on above: Performed By: #### C UU #### [address] Urine Cultureon 09-05-2024 Bacteria identified Cx Nom (U) ORGANISM: Escherichia coli (O:ESCCOL) [place] Count >100,000 Aerobic MADAN Charge (NMIC56) ------ SUSCEPTIBILITY ----- ORGANISM: O:ESCCOL ANTIBIOTIC INTERPRETATION MADAN Amikacin S <16 Amoxacillin/K Clavulanate R >16 Ampicillin R >16 Ampicillin/Sulbacta m I 1616/8 Aztreonam S <4 Cefazolin I 16 Cefepime S <2 Ceftazidime S <1 Ceftazidime/Avibact am S <4 Ceftolozane/Tazobac motley S <2 Ceftriaxone S <1 Cefuroxime S 8 Ciprofloxacin S <0.25 Ertapenem S <0.5 Gentamicin S <2 Levofloxacin S <0.5 Meropenem S <1 Meropenem/Vaborbact am S <2 Nitrofurantoin S <32 Piperacillin/Tazoba ctam S <8 Tetracycline S <4 Tigecycline S <2 Tobramycin S <2 Trimethoprim/Sulfam ethoxazole S <0.5 S = SUSCEPTIBLE I = INTERMEDIATE R = RESISTANT BLANK = DATA NOT AVAILABLE, OR DRUG NOT ADVISABLE OR TESTED R* = RESISTANCE DUE TO EXTENDED SPECTRUM BETA-LACTAMASES ESBL = EXTENDED SPECTRUM BETA-LACTAMASE TFG = THYMIDINE-DEPENDENT STRAIN PRATIBHA = BETA-LACTAMASE POSITIVE IB = INDUCIBLE BETA-LACTAMASE. APPEARS IN PLACE OF 'S' WITH SPECIES KNOWN TO POSSESS INDUCIBLE BETA-LACTAMASES. POTENTIALLY THEY MAY BECOME RESISTANT TO ALL B-LACTAM DRUGS. PERFORMED BY: [place] [address] PATHOLOGIST FINAL EXPENSE AGENT RUBIA ZUNIGA M.D. Normal [facility] Comment on above: Performed By: #### C UU #### [address] Urine cultureOrdered By: Yeni Galeano on 09-05-2024 Bacteria identified Cx Nom (U) Escherichia coli Abnormal [facility] X-ray reportOrdered By: Ander Harris on 08-30-2024 Study report [facility] [place] [facility] [place] [address] XRay Report Signed Patient: Susanne Clark MR#: [id number] : 1965 Acct:[id number] Age/Sex: 58 / F ADM Date: 5 Loc: [facility] Room: Type: REG CLI Attending Dr: Gregg [...] Harris M.D. 08/30/2024 4:59 PM Dictation Location: [place] [address] Transcribed By: [facility] 08/30/241658 Dictated By: Dann Harris DO 08/30/241657 Signed By: 08/30/24 1659 [facility] XR knee LT 2Von 08-30-2024 XR knee LT 2V [facility] [place] [facility] [place] [address] XRay Report Signed Patient: Susanne Clark MR#: [id number] : 1965 Acct:[id number] Age/Sex: 58 / F ADM Date: 08/30/24 Loc: [facility] Room: Type: REG CLI Attending Dr: Gregg [...] 4:59 PM Dictation Location: RADIO-PC-23 Transcribed By: [facility] 08/30/24 1659 Dictated By: Dann Harris DO 08/30/241657 Signed By: 08/30/241658 Normal [facility] XR knee LT 2Von 10-13-2023 XR knee LT 2V [facility] [place] [facility] [address] [place] [address] XRay Report Signed Patient: Susanne Clark MR#: [id number] : 1965 Acct:[id number] Age/Sex: 58 / F ADM Date: 10/13/23 Loc: [facility] Room: Type: [facility] Attending Dr: Gregg Nassar MD Copies [...] Foster Jr., D.OXiomy10/13/2023 12:32 PM Dictation Location: RADIO-PC-08 Transcribed By: [facility] 10/13/23 1232 Dictated By: Freedom Foster Jr, DO 10/13/23 1231 Signed By: 10/13/23 1232 Normal [facility] MRI KNEE LT WO CONon [...] by: NOHEMY MARCOS Date: 2022-02-22 08:51 Normal [facility] XR knee LT 4V*on 12-12-2021 XR knee LT 4V* [facility] [employer] Other XR knee LT 4V* [facility] [employer] Other XR knee LT 4V* [address] [facility] [employer] Other XR knee LT 4V* [place] [address] No [facility] [employer] Other XR knee LT 4V* XRay Report [employer] Other XR knee LT 4V* Signed [employer] Other XR knee LT 4V* Patient: Susanne Clark MR#: [id number] [place] [employer] Other XR knee LT 4V* [id number] [employer] Other XR knee LT 4V* : 1965 Acct:[id number] [email or web address] Other XR knee LT 4V* Age/Sex: 56 / F ADM Date: 12/12/21 [email or web address] Other XR knee LT 4V* Loc: [facility] Room: Type: REG CLI [email or web address] Other XR knee LT 4V* Attending Dr: Liliya PALACIO [email or web address] Other XR knee LT 4V* Copies to: HAKEEM Lim [email or web address] Other XR knee LT 4V* Ordering Provider: HAKEEM Lim [email or web address] Other XR knee LT 4V* Date of Service: 12/12/21 [email or web address] Other XR knee LT 4V* XR/XR knee LT 4V*: Acute pain of left knee [email or web address] Other XR knee LT 4V* XR knee LT 4V* 12/12/2021 12:41 PM [email or web address] Other XR knee LT 4V* SIGNS AND SYMPTOMS: Left knee pain after fall [email or web address] Other XR knee LT 4V* PROTOCOL: Frontal, lateral, and oblique radiographs of the left knee [email or web address] Other XR knee LT 4V* COMPARISON: None [employer] Other XR knee LT 4V* FINDINGS: [employer] Other XR knee LT 4V* There is mild narrowing of the patellofemoral joint space with minimal narrowing of the medial [email or web address] Other XR knee LT 4V* weightbearing joint space. There is no evidence of fracture. No dislocation or subluxation. No [email or web address] Other XR knee LT 4V* joint effusion. No significant soft tissue swelling. [email or web address] Other XR knee LT 4V* XR/XR knee LT 4V* [email or web address] Other XR knee LT 4V* IMPRESSION: [employer] Other XR knee LT 4V* No acute bony injury. [email or web address] Other XR knee LT 4V* Mild degenerative changes are noted, as above. [email or web address] Other XR knee LT 4V* Impression dictated by: Bernardo Camacho M.D.12/12/2021 12:59 PM [email or web address] Other XR knee LT 4V* Dictation Location: [place] [address] [email or web address] Other XR knee LT 4V* Transcribed By: [facility] 12/12/21 1259 [email or web address] Other XR knee LT 4V* Dictated By: Bernardo Camacho II, MD 12/12/21 1258 [email or web address] Other XR knee LT 4V* Signed By: [employer] Other XR knee LT 4V* 12/12/21 1259 [employer] Other SARS-CoV-2 (COVID-19) RNA NA A+probe Ql (Resp)on 2021 SARS-CoV-2 (COVID-19) RNA ALYSSA+probe Ql (Unsp spec) Positive [email or web address] Other T4 [facility] 10-06-2021 T4 [Mass/Vol] 7.2 ug/dL Normal 4.5-12.0 [facility] Comment on above: Performed By: #### T 4LC #### [facility] [address] [place] [address] Dr. Chana Ceballos VIT D 25-OH [facility] 2021 Vitamin D, 25-Hydroxy 33.8 ng/mL Normal 30.0-100.0 [facility] Comment on above: Result Comment: Divya min D deficiency has been defined by the [place] of [employer] and an Endocrine Society practice guideline as a level of serum 25-OH vitamin D less than 20 ng/mL (1,2). The Endocrine Society went on to further define vitamin D insufficiency as a level between 21 and 29 ng/mL (2). 1. IOM ([place] of [employer]). 2010. Dietary reference intakes for calcium and D. [place]: The National Academies Press. 2. Sundar CORDERO, Dinorah RIVERA, Kimberly GIBSON, et al. Evaluation, treatment, and prevention of vitamin D deficiency: an Endocrine Society clinical practice guideline. JCEM. 2010; 96(7):1911-30. Performed By: #### V ITADLC #### [facility] [address] [place] [address] Dr. Chana Ceballos CBC AUTO DIFFon 10-05-2021 BASO # 0.0 103/ul Normal 0.0-0.1 [facility] Comment on above: Performed By: #### C BC #### [facility] [address] [place] [address] Dr. Chana Ceballos Basophils/100 WBC (Bld) 0.3 % Normal 0.2-2.0 [facility] Comment on above: Performed By: #### C BC #### [facility] [address] [place] [address] Dr. Chana Ceballos EO # 0.2 103/ul Normal 0.0-0.7 [facility] Comment on above: Performed By: #### C BC #### [facility] [address] [place] [address] Dr. Chana Ceballos Eosinophils/100 WBC (Bld) 2.1 % Normal 0.9-7.0 [facility] Comment on above: Performed By: #### C BC #### [facility] [address] [place] [address] Dr. Chana Ceballos Erythrocyte distribution width (RBC) [Ratio] 12.3 % Normal 11.0-15.0 [facility] Comment on above: Performed By: #### C BC #### [facility] [address] [place] [address] Dr. Chana Ceballos Hematocrit (Bld) [Volume fraction] 41.7 % Normal 36.0-48.0 [facility] Comment on above: Performed By: #### C BC #### [facility] [address] [place] [address] Dr. Chana Ceballos Hemoglobin (Bld) [Mass/Vol] 13.6 g/dL Normal 12.0-16.0 [facility] Comment on above: Performed By: #### C BC #### [facility] [address] [place] [address] Dr. Chana Ceballos IG # 0.04 10e3/ul Critically high 0.00-0.03 [facility] Comment on above: Performed By: #### C BC #### [facility] [address] [place] [address] Dr. Chana Ceballos IG % 0.6 % Critically high 0.0-0.5 [facility] Comment on above: Performed By: #### C BC #### [facility] [address] [place] [address] Dr. Chana Ceballos LYMPH # 1.4 103/ul Normal 1.2-3.8 [facility] Comment on above: Performed By: #### C BC #### [facility] [address] [place] [address] Dr. Chana Ceballos Lymphocytes/100 WBC (Bld) 19.8 % Critically low 20.5-60.0 [facility] Comment on above: Performed By: #### C BC #### [facility] [address] [place] [address] Dr. Chana Ceballos MANUAL DIFF REQ NO Normal [facility] Comment on above: Performed By: #### C BC #### [facility] [address] [place] [address] Dr. Chana Ceballos MCH (RBC) [Entitic mass] 30.3 pg Normal 26.7-34.0 [facility] Comment on above: Performed By: #### C BC #### [facility] [address] [address] [address] Chana Ceballos MCHC (RBC) [Mass/Vol] 32.6 g/dL Normal 29.9-35.2 [facility] Comment on above: Performed By: #### C BC #### [facility] [address] [address] [address] Chana Ceballos MCV (RBC) [Entitic vol] 92.9 fL Normal 81.0-99.0 [facility] Comment on above: Performed By: #### C BC #### [facility] [address] [place] [address] Dr. Chana Ceballos MONO # 0.7 103/ul Normal 0.3-0.8 [facility] Comment on above: Performed By: #### C BC #### [facility] [address] [place] [address] Dr. Chana Ceballos Monocytes/100 WBC (Bld) 10.2 % Normal 1.7-12.0 [facility] Comment on above: Performed By: #### C BC #### [facility] [address] [place] [address] Dr. Chana Ceballos NEUT # 4.7 103/ul Normal 1.4-6.5 [facility] Comment on above: Performed By: #### C BC #### [facility] [address] [place] [address] Dr. Chana Ceballos Neutrophils/100 WBC (Bld) 67.0 % Normal 43.0-75.0 [facility] Comment on above: Performed By: #### C BC #### [facility] [address] [address] [address] Chana Ceballos Platelet mean volume (Bld) [Entitic vol] 11.0 fL Normal 9.5-13.5 [facility] Comment on above: Performed By: #### C BC #### [facility] [address] [address] [address] Chana Ceballos PLT 212 103/ul Normal 150-450 [facility] Comment on above: Performed By: #### C BC #### [facility] [address] [address] [address] Chana Ceballos WBC 7.1 103/ul Normal 4.0-11.0 [facility] Comment on above: Performed By: #### C BC #### [facility] [address] [address] [address] Chana Ceballos FREE T3on 10-05-2021 FREE T3 2.32 pg/mlL Normal 2.18-3.98 [facility] Comment on above: Performed By: #### T SH, CMP, LIPID, FT3 #### [facility] [address] [place] [address] Dr. Chana Ceballos GLYCOHEMOGLOBIN A1Con 2021 ADA RECOMMENDATION SEE BELOW Normal [facility] Comment on above: Result Comment: ADA RECOMMENDED LIMIT 4.0 - 6.0 ADA THERAPEUTIC TARGET < 7.0 ACTION SUGGESTED > 7.0 Performed By: #### A 1C #### [facility] [address] [place] [address] Dr. Chana Ceballos Glucose [Mass/Vol] 169 mg/dL Normal [facility] Comment on above: Performed By: #### A 1C #### [facility] [address] [place] [address] Dr. Chana Ceballos HbA1c (Bld) [Mass fraction] 7.5 % Critically high 4.5-6.2 [facility] Comment on above: Performed By: #### A 1C #### [facility] [address] [place] [address] Dr. Chana Ceballos LIPID PROFILEon 10-05-2021 CHOL-HDL RATIO NORM SEE BELOW Normal [facility] Comment on above: Result Comment: 3.3 - 4.4 LOW RISK 4.4 - 7.1 AVERAGE RISK 7.1 - 11.0 MODERATE RISK >11.0 HIGH RISK Performed By: #### T SH, CMP, LIPID, FT3 #### [facility] [address] [address] [address] Chana Ceballos Cholesterol [Mass/Vol] 217 mg/dL Critically high <=200 [facility] Comment on above: Performed By: #### T SH, CMP, LIPID, FT3 #### [facility] [address] [address] [address] Chana Ceballos Cholesterol in HDL [Mass/Vol] 38 mg/dL Critically low 40-60 [facility] Comment on above: Performed By: #### T SH, CMP, LIPID, FT3 #### [facility] [address] [address] [address] Chana Ceballos Cholesterol in LDL [Mass/Vol] 137.4 mg/dL Normal [facility] Comment on above: Performed By: #### T SH, CMP, LIPID, FT3 #### [facility] Laboratory [address] [address] [address] Chana Ceballos Cholesterol.total/Ch olesterol in HDL [Mass ratio] 5.7 {ratio} Normal [facility] Comment on above: Performed By: #### T SH, CMP, LIPID, FT3 #### [facility] [address] [place] [address] Dr. Chana Ceballos HDL NORMAL > or = 60 mg/dl - LOW CARDIOVASCULAR RISK <40 mg/dl - HIGH CARDIOVASCULAR RISK Normal [facility] Comment on above: Performed By: #### T SH, CMP, LIPID, FT3 #### [facility] [address] [place] [address] Dr. Chana Ceballos LDL CALC NORMAL SEE BELOW Normal [facility] Comment on above: Result Comment: <100 mg/dl OPTIMAL 100 - 129 mg/dl NEAR OR ABOVE OPTIMAL 130 - 159 mg/dl BORDERLINE HIGH 160 - 189 mg/dl HIGH >190 mg/dl VERY HIGH Performed By: #### T SH, CMP, LIPID, FT3 #### [facility] [address] [address] [address] Chana Ceballos Triglyceride [Mass/Vol] 208 mg/dL Critically high <=150 [facility] Comment on above: Performed By: #### T SH, CMP, LIPID, FT3 #### [facility] [address] [address] [address] Chana Ceballos VLDL CALC 41.6 mg/dL Normal [facility] Comment on above: Performed By: #### T SH, CMP, LIPID, FT3 #### [facility] [address] [address] [address] Chana Ceballos PROF 14(COMP METB)on 022 Albumin [Mass/Vol] 4.2 g/dL Normal 3.4-5.0 [facility] Comment on above: Performed By: #### T SH, CMP, LIPID, FT3 #### [facility] [address] [address] [address] Chana Ceballos Albumin/Globulin [Mass ratio] 1.2 {ratio} Normal [facility] Comment on above: Performed By: #### T SH, CMP, LIPID, FT3 #### [facility] [address] [place] [address] Dr. Chana Ceballos ALP [Catalytic activity/Vol] 61 U/L Normal 46-116 [facility] Comment on above: Performed By: #### T SH, CMP, LIPID, FT3 #### [facility] [address] [address] [address] Chana Ceballos ALT [Catalytic activity/Vol] 29 U/L Normal 14-59 [facility] Comment on above: Performed By: #### T SH, CMP, LIPID, FT3 #### [facility] [address] [address] [address] Chana Ceballos Anion gap [Moles/Vol] 14.3 mmol/L Normal [facility] Comment on above: Performed By: #### T SH, CMP, LIPID, FT3 #### [facility] [address] [address] [address] Chana Ceballos AST [Catalytic activity/Vol] 17 U/L Normal 15-37 [facility] Comment on above: Performed By: #### T SH, CMP, LIPID, FT3 #### [facility] [address] [address] [address] Chana Ceballos Bilirubin [Mass/Vol] 0.2 mg/dL Normal 0.2-1.0 [facility] Comment on above: Performed By: #### T SH, CMP, LIPID, FT3 #### [facility] [address] [place] [address] Dr. Chana Ceballos Calcium [Mass/Vol] 9.0 mg/dL Normal 8.5-10.1 [facility] Comment on above: Performed By: #### T SH, CMP, LIPID, FT3 #### [facility] [address] [place] [address] Dr. Chana Ceballos Chloride [Moles/Vol] 103 mmol/L Normal 98-107 [facility] Comment on above: Performed By: #### T SH, CMP, LIPID, FT3 #### [facility] [address] [place] [address] Dr. Chana Ceballos CO2 [Moles/Vol] 25.1 mmol/L Normal 21.0-32.0 [facility] Comment on above: Performed By: #### T SH, CMP, LIPID, FT3 #### [facility] [address] [place] [address] Dr. Chana Ceballos Creatinine [Mass/Vol] 0.93 mg/dL Normal 0.55-1.02 [facility] Comment on above: Performed By: #### T SH, CMP, LIPID, FT3 #### [facility] [address] [place] [address] Dr. Chana Ceballos EGFR-AF [place]LANDER >60 Normal >=60 [facility] Comment on above: Performed By: #### T SH, CMP, LIPID, FT3 #### [facility] [address] [place] [address] Dr. Chana Ceballos EGFR-NON AF [place]LANDER >60 Normal >=60 [facility] Comment on above: Performed By: #### T SH, CMP, LIPID, FT3 #### [facility] [address] [place] [address] Dr. Chana Ceballos Globulin (S) [Mass/Vol] 3.4 g/dL Normal [facility] Comment on above: Performed By: #### T SH, CMP, LIPID, FT3 #### [facility] [address] [address] [address] Chana Ceballos Glucose [Mass/Vol] 198 mg/dL Critically high 74-106 [facility] Comment on above: Performed By: #### T SH, CMP, LIPID, FT3 #### [facility] [address] [place] [address] Dr. Chana Ceballos Potassium [Moles/Vol] 4.4 mmol/L Normal 3.5-5.1 [facility] Comment on above: Performed By: #### T SH, CMP, LIPID, FT3 #### [facility] [address] [place] [address] Dr. Chana Ceballos Protein [Mass/Vol] 7.6 g/dL Normal 6.4-8.2 [facility] Comment on above: Performed By: #### T SH, CMP, LIPID, FT3 #### [facility] [address] [place] [address] Dr. Chana Ceballos Sodium [Moles/Vol] 138 mmol/L Normal 136-145 [facility] Comment on above: Performed By: #### T SH, CMP, LIPID, FT3 #### [facility] [address] [place] [address] Dr. Chana Ceballos Urea nitrogen [Mass/Vol] 18.0 mg/dL Normal 7.0-18.0 [facility] Comment on above: Performed By: #### T SH, CMP, LIPID, FT3 #### [facility] [address] [place] [address] Dr. Chana Ceballos Urea nitrogen/Creatinine [Mass ratio] 19.4 mg/mg Normal [facility] Comment on above: Performed By: #### T SH, CMP, LIPID, FT3 #### [facility] [address] [place] [address] Dr. Chana Ceballos TSHon 10-05-2021 TSH 2.219 uIU/mL Normal 0.358-3.740 [facility] Comment on above: Performed By: #### T SH, CMP, LIPID, FT3 #### [facility] [address] [place] [address] Dr. Chana Ceballos Vital Signs Date Time Vital Sign Value Performing Clinician Facility 09-20-2024 10:07-0400 Body height 167.6 cm Adrien Sawyer DPM Work Phone: [facility] 09-20-2024 10:07-0400 Body mass index (BMI) [Ratio] 38.74 kg/m2 Adrien Sawyer DPM Work Phone: [facility] 09-20-2024 10:07-0400 Body weight 108.86 kg Adrienivy Jacques DPM Work Phone: [facility] 09-20-2024 10:07-0400 Respiratory rate 18 /min Adrien Jacques DPM Work Phone: [facility] 09-11-2024 11:33-0400 Body temperature 98.4 [degF] Dolly Hadley DDS Work Phone: [facility] 09-11-2024 11:33-0400 Diastolic blood pressure 100 mm[Hg] Dolly Kanani DDS Work Phone: [facility] 09-11-2024 11:33-0400 Systolic blood pressure 160 mm[Hg] Dolly Kanani DDS Work Phone: [facility] 07-24-2024 10:45-0400 Diastolic blood pressure 82 mm[Hg] Jaja Parry MD Work Phone: [facility] 07-24-2024 10:45-0400 Heart rate 75 /min Jaja Parry MD Work Phone: [facility] 07-24-2024 10:45-0400 Respiratory rate 16 /min Jaja Parry MD Work Phone: [facility] 07-24-2024 10:45-0400 SaO2% (BldA) [Mass fraction] 93 % Jaja Parry MD Work Phone: [facility] 07-24-2024 10:45-0400 Systolic blood pressure 123 mm[Hg] Jaja Parry MD Work Phone: [facility] 07-24-2024 10:12-0400 Inhaled oxygen flow rate 3 L/min Jaja Parry MD Work Phone: [facility] 07-24-2024 09:26-0400 Body height 167.64 cm Jaja Parry MD Work Phone: [facility] 07-24-2024 09:26-0400 Body weight 102.05 kg Jaja Parry MD Work Phone: [facility] 07-12-2024 10:100400 Body height 167.6 cm Adrien Jacques DPM Work Phone: [facility] 07-12-2024 10:10-0400 Body mass index (BMI) [Ratio] 38.74 kg/m2 Adrien Jacques DPM Work Phone: [facility] 07-12-2024 10:100400 Body weight 108.86 kg Adrien Jacques DPM Work Phone: [facility] 07-12-2024 10:10-0400 Respiratory rate 18 /min Adrien Jacques DPM Work Phone: [facility] 07-12-2023 11:25-0400 Diastolic blood pressure 88 mm[Hg] MD Jaja Parry Work Phone: [facility] 07-12-2023 11:25-0400 Heart rate 82 /min MD Jaja Parry Work Phone: [facility] 07-12-2023 11:25-0400 Respiratory rate 16 /min MD Jaja Parry Work Phone: [facility] 07-12-2023 11:25-0400 SaO2% (BldA) [Mass fraction] 99 % MD Jaja Parry Work Phone: [facility] 07-12-2023 11:25-0400 Systolic blood pressure 138 mm[Hg] MD Jaja Parry Work Phone: [facility] 05-28-2024 10:51-0400 Inhaled oxygen flow rate 3 L/min MD Jaja Parry Work Phone: [facility] 07-12-2023 09:56-0400 Body height 167.64 cm MD Jaja Parry Work Phone: [facility] 07-12-2023 09:56-0400 Body weight 108.86 kg MD Jaja Parry Work Phone: [facility] 06-17-2023 08:47-0400 Body height 167.64 cm [facility] 06-17-2023 08:47-0400 Body mass index (BMI) [Ratio] 38.4 kg/m2 [facility] 06-17-2023 08:47-0400 Body weight 108 kg [facility] 05-09-2023 08:58-0400 Body height 167.64 cm [facility] 05-09-2023 08:58-0400 Body mass index (BMI) [Ratio] 38.7 kg/m2 [facility] 05-09-2023 08:58-0400 Body weight 108.94 kg [facility] 07-28-2022 08:15-0400 Body height 167.64 cm Hudson Gu Other [facility] [employer] Other 07-28-2022 08:15-0400 Body mass index (BMI) [Ratio] 38.73 kg/m2 Hudson Gu Other [email or web address] Other 07-28-2022 08:15-0400 Body weight 108.86 kg Hudson Gu Other [email or web address] Other 12-12-2021 13:05-0400 Body height 167.64 cm Liliya Fletcher Other [email or web address] Other 12-12-2021 13:05-0400 Body mass index (BMI) [Ratio] 35.51 kg/m2 Liliya Fletcher Other [email or web address] Other 12-12-2021 13:05-0400 Body temperature 97.9 [degF] Liliya Fletcher Other [email or web address] Other 12-12-2021 13:05-0400 Body weight 99.79 kg Liliya Fletcher Other [email or web address] Other 12-12-2021 13:05-0400 Diastolic blood pressure 74 mm[Hg] Liliya Fletcher Other [email or web address] Other 12-12-2021 13:05-0400 Respiratory rate 18 /min Liliya Fletcher Other [email or web address] Other 12-12-2021 13:05-0400 SaO2% (BldA) [Mass fraction] 99 % Liliya Fletcher Other [email or web address] Other 12-12-2021 13:05-0400 Systolic blood pressure 138 mm[Hg] Liliya Fletcher Other [email or web address] Other 2021 12:30-0400 Body height 167.64 cm Dorys Pughault Other [email or web address] Other 2021 12:30-0400 Body mass index (BMI) [Ratio] 36.31 kg/m2 Dorys Prudencio Other [email or web address] Other 2021 12:30-0400 Body temperature 97 [degF] Dorys Prudencio Other [email or web address] Other 2021 12:30-0400 Body weight 102.06 kg Dorys Prudencio Other [facility] [employer] Other Encounters Encounter Date Encounter Type Care Provider Facility Start: 09-20-2024 End: 09-20-2024 Bamboo flowsheet Adrien Jacques DPM Work Phone: [facility] Start: 09-20-2024 End: 09-20-2024 Bamboo flowsheet Adrien Jacques DPM Work Phone: [facility] Start: 09-20-2024 End: 09-20-2024 Patient encounter procedure Adrien Jacques DPM Work Phone: [facility] Comment on above: Diabetes mellitus du e to underlying condition with diabetic polyneuropathy, without long-term current use of insulin (HCC) (Primary Dx); Pain due to onychomycosis of toenails of both feet; Venous insufficiency Start: 09-20-2024 End: 09-20-2024 ambulatory ADRIEN JACQUES Not Available Start: 09-11-2024 End: 09-11-2024 Encounter identifier Dolly Hadley DDS Work Phone: [facility] Start: 09-11-2024 ambulatory Dolly Hadley DDCm [facility] Start: 09-06-2024 End: 09-06-2024 ambulatory Jaja Parry MD Work Phone: [facility] Work Phone: Start: 09-06-2024 End: 09-06-2024 Departed Referred Jonathan العلي MD -[facility] Start: 09-05-2024 End: 09-05-2024 ambulatory Jaja Parry MD Work Phone: [facility] Work Phone: Start: 09-05-2024 End: 09-05-2024 Departed Referred Vielka Galeano MD -[facility] Start: 08-30-2024 End: 08-30-2024 ambulatory Jaja Parry MD Work Phone: [facility] Work Phone: Start: 08-30-2024 End: 08-30-2024 Patient encounter procedure Gregg Kapoor MD -[facility] Work Phone: Start: 08-27-2024 End: 08-27-2024 Encounter identifier Dolly Hadley DDS Work Phone: [facility] Start: 08-13-2024 End: 08-13-2024 ambulatory Jaja Parry MD Work Phone: [facility] Work Phone: Start: 08-13-2024 End: 08-13-2024 Patient encounter procedure Gregg Kapoor MD -[facility] Work Phone: Start: 07-24-2024 Non-patient / Non-visit Christal Parry MD Work Phone: [facility] Work Phone: Start: 07-24-2024 End: 07-24-2024 Admission to same day surgery center Jaja Parry MD Work Phone: [facility] Work Phone: Start: 07-24-2024 End: 07-24-2024 ambulatory Jaja Parry MD Work Phone: [facility] Work Phone: Start: 07-12-2024 End: 07-12-2024 [...] polyneuropathy, without long-term current use of insulin ([facility]); Pain due to onychomycosis of toenails of both feet Start: 07-12-2024 End: 07-12-2024 ambulatory ADRIEN JACQUES Not Available Start: 07-11-2024 End: 07-11-[address] [facility] Work Phone: Start: 07-11-2024 End: 07-11-2024 Patient encounter procedure [facility] Work Phone: Start: 10-13-2023 End: 10-13-2023 ambulatory MD Jaja Parry Work Phone: [facility] Work Phone: Start: 10-13-2023 End: 10-13-2023 Patient encounter procedure MD Jaja Parry Work Phone: [facility] Work Phone: Start: 08-01-2023 End: 08-01-2023 ambulatory MD Jaja Parry Work Phone: [facility] Work Phone: Start: 08-01-2023 End: 08-01-2023 Patient encounter procedure MD Jaja Parry Work Phone: [facility] Work Phone: Start: 07-12-2023 Non-patient / Non-visit MD Linnea Parry Work Phone: [facility] Work Phone: Start: 07-12-2023 End: 07-12-2023 Admission to same day surgery center MD Jaja Parry Work Phone: [facility] Work Phone: Start: 07-12-2023 End: 07-12-2023 ambulatory MD Jaja Parry Work Phone: [facility] Work Phone: Start: 06-30-2023 End: 06-30-2023 Patient encounter procedure MD Jaja Parry Work Phone: [facility] Work Phone: Start: 06-17-2023 End: 06-17-2023 ambulatory [facility] Work Phone: Start: 06-17-2023 End: 06-17-2023 Patient encounter procedure [facility] Work Phone: Start: 05-09-2023 End: 05-09-[address] [facility] Work Phone: Start: 05-09-2023 End: 05-09-2023 Patient encounter procedure [facility] Work Phone: Start: 07-28-2022 End: 07-28-2022 ambulatory Hudson Gu Other [email or web address] Other Start: 07-28-2022 Office outpatient vi sit 25 minutes Hudson Gu [facility] Start: 06-23-2022 End: 06-24-[address] JAJA PARRY . Facility:[facility] Start: 06-14-2022 End: 06-14-2022 ambulatory Hudson Gu Other [email or web address] Other Start: 06-14-2022 Telephone encounter Hudson Gu [facility] Start: 03-09-2022 End: 04-08-2022 ambulatory HUDSON GU Facility:[facility] Start: 02-22-2022 End: 02-23-2022 ambulatory LILIYA HUTTON Facility:[facility] Start: 12-12-2021 Office outpatient vi sit 15 minutes Liliya Fletcher [facility] Start: 12-12-2021 End: 12-12-2021 ambulatory MD Jaja Parry Work Phone: [email or web address] Other Start: 12-12-2021 End: 12-12-2021 Patient encounter procedure MD Jaja Parry Work Phone: [facility] Start: 2021 End: 2021 ambulatory Dorys Prudencio Other [facility] [employer] Other Start: 2021 Office outpatient ne w [...] Date Procedure Procedure Detail Performing Clinician Start: 09-11-2024 End: 09-11-2024 Documentation of current medications Dolly Hadley DDS Work Phone: Start: 09-11-2024 End: 09-11-2024 oral hygiene instructions Dolly Bernal DS Work Phone: Start: 09-11-2024 End: 09-11-2024 Post Op Visit Dental Dolly Hadley DDS Work Phone: Start: 09-05-2024 Urine culture Jaja roche MD Work Phone: Start: 08-30-2024 X-ray of left knee, two views Jaja Parry MD Work Phone: Start: 08-27-2024 End: 08-27-2024 Documentation of current medications Dolly Hadley DDS Work Phone: Start: 08-27-2024 End: 08-27-2024 extraction, erupted tooth or exposed root (elevation and/or forceps removal) Dolly Hadley DDS Work Phone: Start: 08-27-2024 End: 08-27-2024 oral hygiene instructions Dolly Bernal DS Work Phone: Start: 07-24-2024 Radiofrequency destr uction of peripheral nerve Jaja Parry MD Work Phone: Start: 10-13-2023 X-ray of left knee MD Dolores Parry Work Phone: Start: 07-12-2023 Radiofrequency destr uction of peripheral nerve MD Jaja Parry Work Phone: Start: 12-12-2021 Radiologic examinati on of knee MD Jaja Parry Work Phone: Plan of Treatment Date Care Activity Detail Author Start: 10-15-2024 Influenza vaccination Influenza Vacc ine (#1) [facility] Start: 09-24-2024 Susanne Clark [facility] Work Phone: Start: 09-20-2024 End: 09-20-2024 Patient encounter procedure [facility] Comment on above: Diabetes mellitus du e to underlying condition with diabetic polyneuropathy, without long-term current use of insulin (HCC) (Primary Dx); Pain due to onychomycosis of toenails of both feet; Venous insufficiency Start: 09-11-2024 [employer] [facility] Work Phone: Start: 09-06-2024 Urine culture [facility] Start: 09-06-2024 Bacteria identified in Urine by Culture Urine Culture [facility] Start: 09-05-2024 Bacteria identified in Urine by Culture Urine Culture [facility] Start: 09-05-2024 Urine culture [facility] Start: 08-30-2024 X-ray of left knee, two views XR knee LT 2V [facility] Start: 08-30-2024 XR Knee - left 2 Views [facility] Start: 08-27-2024 [employer] [facility] Work Phone: Start: 07-24-2024 [facility] Start: 07-12-2024 End: 07-12-2024 Patient encounter procedure 07/12/2024 11:00 AM EDT Office Visit [facility] [address] [address] Adrien Jacques DPM [address] [address] Arrived [facility] Comment on above: Arrived Start: 10-13-2023 X-ray of left knee XR knee LT 2V [facility] Start: 10-13-2023 XR Knee - left 2 Views [facility] Start: 07-12-2023 [facility] Start: 2003 Screening for malign ant neoplasm of breast Mammogram [facility] Start: 10-10-1993 Screening for malign ant neoplasm of cervix [facility] Start: 10-10-1984 Screening for malign ant neoplasm of cervix Pap Smear [facility] Start: 1965 Screening for malign ant neoplasm of colon [facility] Patient Education Know your Meds Felter Non Diagnostic Block [facility] Work Phone: Patient referral [facility] Work Phone: Immunizations Immunization Date Immunization Notes Care Provider Fa cility 10-31-2023 influenza virus vacc ine, unspecified formulation Adrien Jacques DPMargie Work Phone: [facility] Healthcare Payers Date Payer Category Payer Medicaid [facility] [id number] 2024 Medicaid [id number] 2024 Self-pay [id number] 2024 Private Health Insurance [facility] [id number] 2024 Unknown [id number] 2023 Self-pay 2012 Unknown [id number] 1965 Unknown [id number] 593 1963 Unknown [id number] [id number]. 593 1963 Unknown [id number] [id number]. 593 1963 Unknown [id number] [id number]. 593 1963 Unknown [id number] [id number]. 716 1963 Unknown [id number] [id number]. 1259 1963 Unknown [id number] [id number]. 1259 1959 Blue Cross Blue Shield [id number] Unknown [place] BC/BS [id number] Unknown [id number] 531 Unknown [id number]. 531 Unknown [id number] [id number]. 531 Unknown [id number]. 531 Unknown [id number]. 531 Social History Date Type Detail Facility Start: 01-17-2023 End: 07-12-2024 Sex Assigned At [email or web address] Other Start: 1965 Sex Assigned At Female [facility] Start: 01-17-2023 Tobacco smoking status NVIS Occasional tobacco smoker [facility] History of tobacco use Cigarette Smoker [facility] Start: 01-17-2023 End: 07-12-2024 History of Social function [facility] Start: 01-17-2023 Tobacco Comment 5 or less cigarettes/day [facility] Start: 1965 Sex assigned at Not on file [facility] Start: 07-11-2024 End: 07-24-2024 Tobacco smoking status NHIS Ex-smoker (finding) [facility] Start: 07-11-2024 End: 07-24-2024 Sex Female (finding) [facility] Start: 08-27-2024 End: 09-11-[address] [facility] Unknown if ever smoked [facility] Start: 08-27-2024 Alcohol intake Alcohol Use Details [facility] Sexual Orientation Straight or heterosexual [facility] Work Phone: Start: 01-26-2018 Sexual Orientation Bisexual [facility] Goals Date Patient Goal Desired Activity /State Clinical Notes 2021 to 09-20-2024 Adrien Jacques DPM - 09/20/2024 10:20 AM EDT Note Date & Type Note Facility 09-20-2024 History of Presen t illness Narrative Patient: [...] and treatment. Patient is DM2 Pt also has history of venous stasis to b/l lower extremities Allergies: Allergies Allergen Reactions Cephalexin Other Reaction(s): [...] and negative PT pedal pulses NEURO: 5.07 [place] monofilament test intact to digits and forefoot bilaterally 125Hz tuning fork diminished to 1st MPJ bilaterally ORTHO: Positive pain on palpation to toenails of the left 1,2,3,4,5 toes and right 1,2,3,4,5 toes ASSESSMENT 1. Diabetes mellitus due to underlying condition with diabetic polyneuropathy, without long-term current use of insulin (HCC) 2. Pain due to onychomycosis of toenails of both feet 3. Venous insufficiency PLAN Discussed proper foot care with patient [...] elevation of feet while resting or NWB. Adrien Jacques DPM documented in this encounter [facility] 09-11-2024 History of Presen t illness Narrative Encounter Date DL DL [facility] Work Phone: 1(338) 807-979607-14-2025 History of Present illness Narrative* Encounter Date Complaint History Of Prese nt Illness ext ext [facility] Work Phone: 1(796) 985-843906-10-2025 [id number] Pain Management Procedure Note Signed Patient: Susanne Clark MR#: [id number] : 1965 Acct:[id number] Age/Sex: 58 / F Adm Date: 5 Loc: Room: Type: [facility] Attending Dr: Gregg Nassar MD Copies to: MD Gregg Giordano MD~ Pain Procedure PROCEDURE PERFORMED BY: Gregg Nassar PROCEDURE DATE: 07/24/2024 PREPROCEDURE DIAGNOSIS: Left knee degeneration. POSTPROCEDURE DIAGNOSIS: Left knee degeneration. PROCEDURE: Left superior medial, superior lateral and inferior medial genicular nerve radiofrequency ablation under fluoroscopic guidance. COMPLICATIONS: None. ANESTHESIA: Local and conscious sedation with Midazolam 3 mg and Fentanyl 50 mcg Sedation start time: 1009 Sedation end time: 102 CLINICAL NOTE: The patient has a history of left knee degeneration and knee pain. The patient requests the radiofrequency ablation in an attempt to improve the pain. The risks, benefits, and alternatives of the procedure were explained to the patient. The patient wishes to proceed. PROCEDURE NOTE: The patient was brought to the procedure room and placed in the supine position.The skin was prepped and draped with ChloraPrep and sterile towels. 9 ml of 1% lidocaine were injected through a 27-gauge needle for local anesthesia. 20 gauge radiofrequency needles with 10 mm active tip were guided under fluoroscopic guidance to the anatomic locations of the left superior medial, superior lateral, and inferior medial genicular nerves. Motor stimulation was negative at 2 V at 2 Hz. 1 mL of 2% lidocaine was injected through each needle. Radiofrequency ablation was carried out at 80 degrees times 90 sec for 2 sessions. 3 mL of 0.5% bupivacaine were injected in divided doses through each needle after negative aspiration. The needles were removed and Band-Aid was applied. Patient tolerated the procedure well and was transferred to recovery purvi stable condition. PLAN: The patient was instructed to call the clinic in 1-2 days to inform us of any progress. The patientwas encouraged to call at any time with any questions or concerns. Documented By: Gregg Nassar MD 07/24/24 1008 Signed By: 07/24/24 1022 [facility]05-29-2025 History of Present illness Narrative * Adrien Jacques, MELANY - 07/12/2024 11:00 AM EDT Patient: Susanne Clark : 1965 PCP: Jaja [...] have tried no treatments for the condition. Statesswelling worstens with prolonged standing activities. Allergies: Allergies [...] Fluoride) 0.25 MG chewable tablet, Multivitamin, Disp: ,Rfl: pioglitazone (Actos) 45 MG tablet, Take 45 [...] and negative PT pedal pulses NEURO: 5.07 [place] monofilament test intact to digits and forefoot bilaterally 125Hz tuning fork diminished to 1st MPJ bilaterally ORTHO: Positive pain on palpation to toenails of the left 1,2,3,4,5 toes and right 1,2,3,4,5 toes ASSESSMENT 1. Venous insufficiency 2. Diabetes mellitus due to underlying condition with diabetic polyneuropathy, without long-term current use of insulin ([facility]) 3. Pain due to onychomycosis of toenails of both feet PLAN Discussed proper foot care with patient today. Debride nails in length and thickness digits 1 through 10 Patient educated today on proper diabetic foot care including monitoring feet daily for any signs of infection openings in the skin or irregularities to both feet. Patient had a diabetic neurologicalexam today to both their feet and discussed proper shoe gear. Visit spent with patient education on condition and treatment of condition. Pt to continue with elevation of feet while resting or NWB. Discussed compression hose and the use of stockings for edema. Discussed condition in detail. Recommendation for [id number]-[id number] compression stockings at this time and may consider prescription stockings in the future. Adrien Jacques DPM documented in this encounterResearch [facility]ton [id number] Evaluation note* Diagnosis Onset Date Resolution Status Admit Date Chronic pain acute July 11 9:53am Fibromyalgia acute July 11 9:53am Osteoarthritis of left knee acute July 11, 2024 9:53am [facility] Work Phone: 1(922) 280-333005-28-2025 Evaluation note* Diagnosis Onset Date Resolution Status Admit Date Chronic pain acute July 11 9:53am Fibromyalgia acute July 11 9:53am Osteoarthritis of left knee acute July 11, 2024 9:53am Chronic pain acute August 13, 2 025 7:58am Fibromyalgia acute August 13, 2 025 7:58am Osteoarthritis of left knee acute August 13, 2024 7:58am [facility] Work Phone: 1(424) 250-480905-28-2025 Evaluation note* Diagnosis Onset Date Resolution Status [...] left knee acute August 30, 2024 9:02am [facility] Work Phone: 1([phone]) 570-179805-28-2024 Procedure [facility]03-25-2024 Evaluation note* Author Mare Ramirez [facility] Authored May 09, 2023 9:1 6am We performed a 4/1cc Marcain e / Kenalog cortisone injection into the knee joint under sterile technique. Patient tolerated the injection well without adverse reaction. Patient can follow up as needed. Note scribed by ESEQUIEL Valle, reviewed and amended by myself Hudson Gu D.O. [facility] Work Phone: 1([phone]) 764-336206-14-2023 Evaluation note* Encounter Date Diagnosis Assessment Notes [...] tolerated the injection well without adverse reaction. [email or web address] Other 05-01-2023 Evaluation note* Encounter Date Diagnosis Assessment Notes Treatment Notes Treatment Clinical Notes June, Acute meniscal tear of left knee, initial encounter (ICD-10 - S83.207A) [email or web address] Other 10-29-2022 Evaluation note* Encounter Date Diagnosis [...] Nov, Other Contusion mater ial was printed [email or web address] Other 08-28-2022 Evaluation note* Encounter Date Diagnosis [...] COVID POSITIVE education handout discharge instructions. given. [email or web address] Other Consult note* Clinical Note Date No Information [facility] Work Phone: Discharge summary* Clinical Note Date No Information [facility] Work Phone: Evaluation noteNo assessment information available [facility] Work Phone: Evaluation note* Author Mare Ramirez [facility] Authored May 09, 2023 9:1 6am We performed a 4/1cc Marcain e / Kenalog cortisone injection into the knee joint under sterile technique. Patient tolerated the injection well without adverse reaction. Patient can follow up as needed. Note scribed by ESEQUIEL Valle, reviewed and amended by myself Hudson Gu D.O. [facility] Work Phone: Evaluation note* Diagnosis Onset Date Resolution Status Chronic pain acute Knee pain acute Osteoarthritis of left knee acute Chronic pain acute Contusion of left knee acute Knee pain acute Osteoarthritis of left knee acute [facility] Work Phone: Evaluation note* Diagnosis Venous insufficiency- Primary Unspecified venous (peripheral) insufficiency Diabetes mellitus due to underlying condition with diabetic polyneuropathy, without long-term current use of insulin ([facility]) Pain due to onychomycosis of toenails of both feet documented in this encounter [facility] HealthcareEvaluation [facility]* Diagnosis Onset Date Resolution Status Admit Date Chronic pain acute July 11 9:53am Fibromyalgia acute July 11 9:53am Osteoarthritis of left knee acute July 11, 2024 9:53am [facility] Work Phone: Evaluation note* Type Assessment Date No Information [facility] Work Phone: Evaluation note* Diagnosis Diabetes mellitus due to underlying condition with diabetic polyneuropathy, without long-term current use of insulin ([facility])- Primary Pain due to onychomycosis of toenails of both feet Venous insufficiency Unspecified venous (peripheral) insufficiency documented in this encounter [facility] HealthcareHistory and physical note* Clinical Note Date No Information [facility] Work Phone: History general Narrative - Reported* Type Description Date Medical History diabetes Surgical History c-sections - 2 Surgical History oophorectomy Surgical History hysterectomy [facility] [employer] Other History general Narrative - Reported* Type Description Date Medical History diabetes Medical History high cholesterol Surgical History c-sections - 2 Surgical History oophorectomy Surgical History hysterectomy [facility] [employer] Other History of Past illness Narrative* Condition Effective Dates (start - stop) O utcome No Information [facility] Work Phone: Instructions* Date Instruction Additional Infor mation No Information [facility] Work Phone: Progress note* Clinical Note Date No Information [facility] Work Phone: Reason for referral (narrative)* Reason For Referral No Information [facility] Work Phone: Review of systems Narrative - Reported* System Pos/Neg Findings No Information [facility] Work Phone: Chief Complaint and Reason for Visit From encounter dated 09/11/2024 11:19'. DL (chief complaint). Description: DL Chief Complaint M25.562 Chief Complaint OP SP [...] 9:24am Unknown September 05, 2024 8:15 am Chief Complaint Admit Date recheck July 11, 2024 9:53a m KJNEE PAIN July 24, 2024 8:58 am KJNEE PAIN July 24, 2024 10:0 8am F/U LT GENICULAR RFA August 13, 2024 7:5 8am RECHECK DISCUSS INJECTION OPTIONS August 142024 9:02am M17.12 - Unilateral primary osteoarthrit is, left k August 30, 2024 9:24am Unknown September 05, 2024 8:15 am Unknown September 06, 2024 6:13 pm Advance Directives Advance Directive Response Recorded Date/ Time Advance Directives No December 12, 2021 1:39pm Directive Yes / No Effective Date File Name No Information Summary Purpose Family History Relationship Condition Age at Onset Recorded Date/T maddie father Heart disease Unknown Unknown Diabetes mellitus Unknown Hypertension Unknown Not Specified Malignant neoplasm Unknown History of stroke Unknown Relationship Condition Age at Onset Recorded Date/T maddie father Heart disease Unknown Unknown Diabetes mellitus Unknown Hypertension Unknown mother Malignant neoplasm Unknown History of stroke Unknown Family Member Type Diagnosis Age At Onset No Information Additional Source Comments REASON FOR VISIT (unrecogniz ed section and content) Reason Comments DM Foot Care Dm nail care Reason Comments DM Foot Care Care Teams (unrecognized sec tion and content) [...] Provider Active Sta rt: October 13, 2023 Hairspring Adjuster Relationship Specialty Start Date End Date Jaja Parry MD [address] [place] [address] PCP - General Family Medicine 02/02/23 Hairspring Adjuster Relationship Specialty Start Date End Date Jaja Parry MD [address] [place] [address] PCP - General Family Medicine 02/02/23 Team [...] 2024 Team Status: Active Member Role Status Natcaha Parry MD Primary Care Provider Active Start: [...] September 05, 2024 End: September 05, 2024 Team Status: Inactive Member Role Status Dates Jonathan العلي MD Attending Provider Active Start : September 06, 2024 End: September 06, 2024 Name Effective Dates (start - stop) Status Members No Information Hairspring Adjuster Relationship Specialty Start Date End Date Jaja Parry MD [address] [place] [address] PCP - General Family Medicine 02/02/23 Hairspring Adjuster Relationship Specialty Start Date End Date Jaja Parry MD [address] [place] [address] PCP - General Family Medicine 02/02/23 Goals (unrecognized section and content) Goals may be documented in a n alternate section INFORMATION SOURCE (unrecogn ized section and content) DATE CREATED AUTHOR 06/27/2022 [facility] DATE CREATED AUTHOR AUTHOR'S ORGANIZ ATION 09/09/2024 [facility] DATE CREATED AUTHOR AUTHOR'S ORGANIZ ATION 09/12/2024 [facility] DATE CREATED AUTHOR AUTHOR'S ORGANIZ ATION 09/22/2024 [facility] EPIC FOR RECORDS PERTAINING TO PATIENTS WHO ARE [...] BE BASED ON THE PRIMARY CLINICAL RECORDS. [facility]. provides no warranty or guarantee of the accuracy or completeness of information in this document.
[2024-10-22 12:18] LABS: Hematocrit 43.9 % (36.0-48.0); Hemoglobin 15.0 g/dL (12.0-16.0); Immature Granulocytes Abs Auto 0.04 10^3/uL (0.00-0.03); Immature Granulocytes Pct Auto 0.3 % (0.0-0.5); Lymphocytes Absolute Auto 2.2 10^3/uL (1.2-3.8); Mean Corpuscular HGB Conc 34.2 g/dL (29.9-35.2); Mean Corpuscular Hemoglobin 29.9 pg (26.7-34.0); Mean Corpuscular Volume 87.5 fL (81.0-99.0); Platelet Count 304 10^3/uL (150-450); Red Blood Count 5.02 10^6/uL (4.20-5.40); White Blood Count 12.3 10^3/uL (4.0-11.0)
[2024-10-22 13:02] LABS: Alanine Aminotransferase 33 U/L (14-59); Albumin Globulin Ratio 1.1; Albumin Level 4.6 g/dL (3.4-5.0); Alkaline Phosphatase 93 U/L (46-116); Anion Gap 16.0; Aspartate Amino Transferase 18 U/L (15-37); Blood Urea Nitrogen 15.0 mg/dL (7.0-18.0); Calcium 9.7 mg/dL (8.5-10.1); Carbon Dioxide 28.2 mmol/L (21.0-32.0); Chloride 97 mmol/L (98-107); Cholesterol 192 mg/dL (<=200); Estimated GFR (African America >60 (>=60 mL/min/1.73m^2); Estimated GFR (Non-African Ame >60 (>=60 mL/min/1.73m^2); Free T3 2.67 pg/mL (2.18-3.98); Globulin 4.3 g/dL; Glucose 319 mg/dL (74-106); HDL Cholesterol 34 mg/dL (40-60); Magnesium 1.7 mg/dL (1.8-2.4); Potassium 4.2 mmol/L (3.5-5.1); Sodium 137 mmol/L (136-145); Thyroid Stimulating Hormone 1.176 uIU/mL (0.358-3.740); Total Protein 8.9 g/dL (6.4-8.2); Triglycerides 563 mg/dL (<=150); VLDL CHOLESTEROL 112.6 mg/dL
[2024-10-22 13:32] LABS: Iron 93.0 ug/dL (50.0-170.0)
[2024-10-22 13:54] LABS: Lactate/Lactic Acid 2.4 mmol/L (0.4-2.0)
[2024-10-22 14:24] LABS: Glucose Urine UA >=1000 mg/dL (NEGATIVE)
[2024-10-22 15:01] LABS: Cast Seen? NONE SEEN #/LPF (NONE SEEN); Crystals Seen? None Seen #/HPF (None Seen)
== END 2024-10-22 11:47 | disposition home or self-care (01) ==
LOC: LAB 11:47
PROVIDERS: PCP Family Medicine; Visit Provider Family Medicine
DX: R61 Generalized hyperhidrosis (principal); N39.0 Urinary tract infection, site not specified; R25.1 Tremor, unspecified; I10 Essential (primary) hypertension; E78.5 Hyperlipidemia, unspecified; R73.09 Other abnormal glucose; D64.9 Anemia, unspecified; T14.8XXA Other injury of unspecified body region, initial encounter; R53.83 Other fatigue; E55.9 Vitamin D deficiency, unspecified
CPT/HCPCS: 36415; 80053; 80061; 81001; 82306; 83036; 83540; 83605; 83721; 83735; 84436; 84443; 84481; 85025; 85652; 86140; 87040; 87086

== ENCOUNTER 2024-10-22 14:29 | Observation (INO) | payer MEDICAID, SELFPAY ==
[2024-10-22] VITALS (40 sets, daily range): BP systolic 148–194; BP diastolic 76–102; PULSE 79–100; TEMP 36.4–36.8; O2SAT 94–100; BMI 35.2; BMI 35.4
--- NOTE | 2024-10-22 14:55 | ECG_ITS ---
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
--- NOTE | 2024-10-22 16:00 | ED.GENADUL1 ---
HPI HPI - General Adult General Chief complaint: Recheck/Abnormal Lab/Rx Stated complaint: ABNORMAL LABS SENT BY DR PARRY Time Seen by Provider: 10/22/24 14:44 Source: patient Mode of arrival: walk-in History of Present Illness HPI narrative: Patient is a 59-year-old female that presents to the emergency department with complaints of worsening fatigue and sweating for the past 2 weeks. She states that this has been going on since March intermittently but in the last 2 weeks it has worsened. She states that she will put a shirt on a soak it. She denies history of cancer or family history of CA. She completed labs today ordered by Dr Parry and her lactate came back at 2.4. Plan was to recheck this tomorrow. She did have blood cultures drawn as well. When she spoke to the nurse at Dr Armendariz office about the restult she states that she was feeling so fatigued and the nurse told her to be evaluated in the ED if she had concerns. Patient took a nap and still didn't feel well so presented here. She denies any chest pain, SOB, abdominal pain, back pain. She does have some left knee pain but denies recent fever or URI symtpoms. Related Data Home Medications ?Medication ?Instructions ?Recorded ?Confirmed simvastatin 20 mg tablet 20 mg PO DAILY 01/13/23 10/22/24 insulin glargine 100 unit/mL (3 40 unit subcut DAILY 03/21/24 10/22/24 mL) subcutaneous pen (Basaglar KwikPen U-100 Insulin) metoprolol tartrate 50 mg tablet 50 mg PO Q12H 03/22/24 10/22/24 cyclobenzaprine 10 mg tablet 10 mg PO TID 10/22/24 10/22/24 duloxetine 60 mg capsule,delayed 60 mg PO DAILY 10/22/24 10/22/24 release naltrexone 50 mg tablet 50 mg PO DAILY 10/22/24 10/22/24 pantoprazole 40 mg tablet,delayed 40 mg PO DAILY 10/22/24 10/22/24 release Previous Rx's ?Medication ?Instructions ?Recorded magnesium oxide 400 mg PO DAILY #5 caps 09/05/24 ondansetron 4 mg disintegrating 4 mg PO Q8H PRN nausea and 09/05/24 tablet vomiting 48 hours #10 tabs Allergies Allergy/AdvReac Type Severity Reaction Status Date / Time cephalexin (From Keflex) Allergy Intermediate Unknown Verified 10/22/24 14:42 lisinopril Allergy Intermediate Unknown Verified 10/22/24 14:42 tramadol Allergy Unknown Verified 10/22/24 14:42 Opioid HPI Opioid Management Most Recent Opioid Data: Last Pain Scale 8 10/22/24, 19:12 Last Pain Assessment 10/22/24, 21:00 Last MAR Pain Assessment 10/22/24, 19:12 Last ORT Total Score 0 10/22/24, 20:52 Last ORT Risk Category Low Risk 10/22/24, 20:52 Review of Systems ROS Status of ROS 10 or more systems reviewed and unremarkable except as noted in history and below PFSH PFS Medical History (Updated 10/23/24 @ 01:23 by MAGGIE Gallardo) Diabetes ?E11.9 - Type 2 diabetes mellitus without complications (ICD-10) Abdominal pain ?R10.9 - Unspecified abdominal pain (ICD-10) Surgical History (Updated 10/22/24 @ 22:12 by Dee Dee Hunt RN) H/O hysterectomy with oophorectomy H/O oophorectomy H/O: hysterectomy ?Z90.710 - Acquired absence of both cervix and uterus (ICD-10) Family History (Updated 10/22/24 @ 21:00 by Dee Dee Hunt, VINCENT) Father Family history of CHF (congestive heart failure) Heart disease Family history of cancer Family history of diabetes mellitus Family history of hypertension Kidney disease Mother Family history of cancer Family history of hypertension Sister Family history of stroke Social History (Updated 10/22/24 @ 21:03 by Dee Dee Hunt, VINCENT) Within the past year, how often did you have a drink containing alcohol: monthly or less Within the past year, how many standard drinks containing alcohol did you have on a typical day: 1 or 2 Within the past year, how often did you have six or more drinks on one occasion: never Total score: 0 Score interpretation: A score less than 3 is consistent with normal alcohol consumption. Smoking status: Former smoker Non-prescribed substance use: denies use Previous occupational history: disability Highest level of school completed/degree received: some college, no degree Are you now , , , , never or living with a partner: In a typical week, how many times do you talk on the telephone with family, friends, or neighbors: 3 or more times per week How often do you get together with friends or relatives: 3 or more times per week Little interest or pleasure in doing things: not at all Feeling down, depressed, or hopeless: not at all Do you think of yourself as: straight/heterosexual Gender Identity: female Exam Constitutional Vital Signs, click to edit/add: Last Vital Signs Temp 97.6 F 10/22/24 23:34 Pulse 79 10/22/24 23:34 Resp 16 10/22/24 23:34 BP 148/83 H 10/22/24 23:34 Pulse Ox 94 L 10/22/24 23:34 O2 Del Method Room Air 10/22/24 23:34 Documenting provider has reviewed patient's vital signs: yes Common normals: no apparent distress, oriented x3 and healthy appearing General appearance: cooperative and comfortable Nutritional appearance: obese HENMT Common normals: normocephalic, hearing grossly normal bilaterally, external ears normal and external nose normal Face and sinus: normal facial exam Nose: external nose normal Eye Common normals: PERRL, EOMs intact bilaterally, conjunctivae normal and no scleral icterus Chest Common normals: inspection of chest normal and palpation of chest normal Respiratory Common normals: normal respiratory effort and clear to auscultation bilaterally Effort & inspection: able to speak in complete sentences and symmetric chest movement Auscultation: clear to auscultation bilaterally Cardio Common normals: regular rate, regular rhythm, no gallops, no clicks, no murmurs and no rub GI Common normals: soft to palpation, non-tender and no masses Inspection: normal to inspection Palpation: soft Back & Pelvis Common normals: thoracic and lumbar spine normal to inspection Extremity Common normals: normal to inspection Left lower extremity: knee joint Left knee: inspection (Tender, no erythema or joint effusion) and special tests Neuro Common normals: oriented x3 Sensorium/orientation: awake and alert Speech: speech normal Sensory exam: extremities Psych Common normals: mental status grossly normal Course Vital Signs Vital signs: Vital Signs Temperature 98.2 F 10/22/24 14:34 Pulse Rate 92 H 10/22/24 14:34 Respiratory Rate 14 10/22/24 14:34 Blood Pressure 194/102 H 10/22/24 14:34 Pulse Oximetry 99 10/22/24 14:34 Oxygen Delivery Method Room Air 10/22/24 14:34 Temperature 97.6 F 10/22/24 23:34 Pulse Rate 79 10/22/24 23:34 Respiratory Rate 16 10/22/24 23:34 Blood Pressure 148/83 H 10/22/24 23:34 Pulse Oximetry 94 L 10/22/24 23:34 Oxygen Delivery Method Room Air 10/22/24 23:34 Medical Decision Making MDM Narrative Medical decision making narrative: 59 year old female that presents to the ED with complaints of fatigue and profuse progressive sweating since March, worse in the past 2 weeks. She had labs and blood cultures completed through Dr Armendariz office today. Lactate was elevated at 2.4. Plan was to recheck tomorrow but when she spoke to the nurse at his office about this lab she felt her condition was worsening so the nurse recommended being evaluated in the ED. EKG NSR on arrival. Vitals stable. Non toxic appearing on exam. No diaphoresis on exam here. No exam complaints except for Left Knee pain today. IV placed and 1L NS given. Lactate rechecked at still 2.4. WBC 12.4, patient afebrile here. UA negative. Blood cultures pending. [place] 5mg given for pain. I discussed this with Dr Parry and he recommended admission to evaluate further for source of infection as there is no clear source from labs or exam/history.. I discussed this with Dr Estrella and he accepted patient. Patient updated with results and plan. Patient was admitted for obersvation for further evaluation of this abdnormal lab level. Her vitals and condition remained stable during her ED course. Lab Data Labs: Lab Results 10/22/24 10/22/24 Range/Units 17:35 20:42 Lactate 2.4 H* 2.6 H* (0.4-2.0) mmol/L Discharge Plan Discharge Chief Complaint: Recheck/Abnormal Lab/Rx Clinical Impression: Elevated lactic acid level, Leukocytosis Patient Disposition: Admitted as Observation Discharge Date/Time: 10/22/24 20:45
[2024-10-22] MEDS: 0.9 % SODIUM CHLORIDE 1,000 ML 1000 ML IV (16:34)
--- NOTE | 2024-10-22 16:40 | PC.NURSE ---
Pt presents to ER for general malaise as recommended by her PCP Pt was seen in his office this morning and labwork was obtained Pt Lactic was 2.4 - Doctors office called her and told her to come in Pt states she has been experiencing excessive sweating and cold hands and feet since March and has had chronic weakness and fatigue since May Pt has recently applied for disability as she has not been able to go to work due to this Pt states she has HTN, fibromyalgia, and diabetes but elsewise has not found a diagnosis for the reason she is so weak and tired all the time (and sweating with cold hands and feet) This nurse made numerous attempts at IV start with no success - Adriana RN placed IV with utlrasound Pt placed on cardiac cath rn, EKG obtained, pt given a warm blanket and lights dimmed Pt encouraged to rest while fluids infuse
--- OUTSIDE RECORDS SUMMARY | 2024-10-22 17:03 | XMS_ITS | CCD ---
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 Name Role Phone Dorys Flannery Unavailable Liliya [...] Other Provider Vielka Galeano MD Attending Provider [phone] Jonathan العلي MD Attending Provider Vielka Galeano [...] Primary Care Unavailable ADRIEN JACQUES Attending Unavailable ADRIEN JACQUES Attending Unavailable Kanani DDS, Dolly Unavailable Unavailable Allergies Allergy Classification Reported Allergen(s) Allergy Type Date of Onset Reaction(s) Facility Angiotensin Converting Enzyme (ROSS) Inhibitors (1 source) Lisinopril Drug Allergy 4 [facility] Cephalosporins (antibiotic) (1 source) Cephalexin Drug Allergy 4 Unknown Reaction [facility] (5 sources) Cephalexin; Translations: [Keflex] Drug Allergy 4 Unknown [facility] (1 source) Corticosteroids Drug allergy (disorder) 4 [facility] (1 source) DULoxetine Drug Allergy 4 [facility] (17 sources) Cephalexin; Translations: [cephalexin] Drug Allergy 3 Unknown Reaction [facility] (17 sources) Lisinopril; Translations: [lisinopril] Drug Allergy 3 [facility] Medications Current Medications Medication Drug Class(es) [...] Kenalog-40 14 Jul, 2022 40 mg Vit C-S.Sodkyd-Trzwvf-Ddrmv Sd (Tart Thapa) 24-587-63-75-20 mg capsule (11 sources) Start: 07-12-2023 End: 07-24-2024 Vit C-S.Hcrsiv-Luawqb-Iyxgs Sd (Tart Thapa) 11-772-12-75-20 mg capsule Discontinued CAP PO July 12, 2023 12:00am July 24, 2024 9:24am Start: 07-12-2023 Vit C-S.Thapa -Celery-Grape Sd (Tart Thapa) 68-430-62-75-20 mg capsule Active CAP PO July 12, [...] bacterial skin contaminants 2 Days PERFORMED BY: [place] [address] [place] [address] PATHOLOGIST CARPET TILE LAYER RUBIA ZUNIGA M.D. Normal [facility] Comment on above: Performed By: #### C UU #### [address] Urine Cultureon 09-05-2024 Bacteria identified Cx Nom (U) ORGANISM: Escherichia coli (O:ESCCOL) Paauilo Count >100,000 Aerobic MADAN Charge (NMIC56) ------ [...] RESISTANT TO ALL B-LACTAM DRUGS. PERFORMED BY: [place] [address] PATHOLOGIST CARPET TILE LAYER RUBIA ZUNIGA M.D. Normal [facility] Comment on above: Performed By: #### C UU #### [address] Urine cultureOrdered By: Yeni Galeano on 09-05-2024 Bacteria identified Cx Nom (U) Escherichia coli Abnormal [facility] X-ray reportOrdered By: Ander Harris on 08-30-2024 Study report [facility] [place] [facility] [place] [address] XRay Report Signed Patient: Susanne Clark MR#: [id number] : 1965 Acct:[id number] Age/Sex: 58 / F ADM Date: 5 Loc: [facility] Room: Type: REG CLI Attending Dr: Gregg [...] Harris M.D. 08/30/2024 4:59 PM Dictation Location: [place] [address] Transcribed By: [facility] 08/30/241658 Dictated By: Dann Harris DO 08/30/241657 Signed By: 08/30/24 1659 [facility] XR knee LT 2Von 08-30-2024 XR knee LT 2V [facility] [place] [facility] [place] [address] XRay Report Signed Patient: Susanne Clark MR#: [id number] : 1965 Acct:[id number] Age/Sex: 58 / F ADM Date: 08/30/24 Loc: [facility] Room: Type: REG CLI Attending Dr: Gregg [...] 4:59 PM Dictation Location: RADIO-PC-23 Transcribed By: [facility] 08/30/24 1659 Dictated By: Dann Harris DO 08/30/241657 Signed By: 08/30/241658 Normal [facility] XR knee LT 2Von 10-13-2023 XR knee LT 2V [facility] [place] [facility]iology [address] [place] [address] XRay Report Signed Patient: Susanne Clark MR#: [id number] : 1965 Acct:[id number] Age/Sex: 58 / F ADM Date: 10/13/23 Loc: [facility] Room: Type: [facility] Attending Dr: Gregg Nassar MD Copies [...] 12:32 PM Dictation Location: RADIO-PC-08 Transcribed By: [facility] 10/13/23 1232 Dictated By: Freedom Foster Jr, DO 10/13/23 1231 Signed By: 10/13/23 1232 Normal [facility] MRI KNEE LT [...] by: NOHEMY MARCOS Date: 2022-02-22 08:51 Normal [facility] XR knee LT 4V*on 12-12-2021 XR knee LT 4V* [facility] [employer] Other XR knee LT 4V* [facility] [employer] Other XR knee LT 4V* [address] [facility] [employer] Other XR knee LT 4V* [place] [address] No [facility] [employer] Other XR knee LT 4V* XRay Report [employer] Other XR knee LT 4V* Signed [employer] Other XR knee LT 4V* Patient: Susanne Clark MR#: [id number] Hasty [employer] Other XR knee LT 4V* [id number] [employer] Other XR knee LT 4V* : 1965 Acct:[id number] [employer] Other XR knee LT 4V* Age/Sex: 56 / F ADM Date: 12/12/21 [employer] Other XR knee LT 4V* Loc: [facility] Room: Type: REG CLI [employer] Other XR knee LT 4V* Attending Dr: Liliya PALACIO [employer] Other XR knee LT 4V* Copies to: HAKEEM Lim [employer] Other XR knee LT 4V* Ordering Provider: HAKEEM Lim [employer] Other XR knee LT 4V* Date of Service: 12/12/21 [employer] Other XR knee LT 4V* XR/XR knee LT 4V*: Acute pain of left knee [employer] Other XR knee LT 4V* XR knee LT 4V* 12/12/2021 12:41 PM [employer] Other XR knee LT 4V* SIGNS AND SYMPTOMS: Left knee pain after fall [employer] Other XR knee LT 4V* PROTOCOL: Frontal, lateral, and oblique radiographs of the left knee [employer] Other XR knee LT 4V* COMPARISON: None [employer] Other XR knee LT 4V* FINDINGS: [employer] Other XR knee LT 4V* There is mild narrowing of the patellofemoral joint space with minimal narrowing of the medial [employer] Other XR knee LT 4V* weightbearing joint space. There is no evidence of fracture. No dislocation or subluxation. No [employer] Other XR knee LT 4V* joint effusion. No significant soft tissue swelling. [employer] Other XR knee LT 4V* XR/XR knee LT 4V* [employer] Other XR knee LT 4V* IMPRESSION: [employer] Other XR knee LT 4V* No acute bony injury. [employer] Other XR knee LT 4V* Mild degenerative changes are noted, as above. [employer] Other XR knee LT 4V* Impression dictated by: Bernardo Camacho M.D.12/12/2021 12:59 PM [employer] Other XR knee LT 4V* Dictation Location: [place] [address] [employer] Other XR knee LT 4V* Transcribed By: [facility] 12/12/21 1259 [employer] Other XR knee LT 4V* Dictated By: Bernardo Camacho II, MD 12/12/21 1258 [employer] Other XR knee LT 4V* Signed By: [employer] Other XR knee LT 4V* 12/12/21 1259 [employer] Other SARS-CoV-2 (COVID-19) RNA NA A+probe Ql (Resp)on 2021 SARS-CoV-2 (COVID-19) RNA ALYSSA+probe Ql (Unsp spec) Positive [employer] Other T4 [facility] 10-06-2021 T4 [Mass/Vol] 7.2 ug/dL Normal 4.5-12.0 [facility] Comment on above: Performed By: #### T 4LC #### [facility] [address] [place] [address] Dr. Chana Ceballos VIT D 25-OH [facility] 2021 Vitamin D, 25-Hydroxy 33.8 ng/mL Normal 30.0-100.0 [facility] Comment on above: Result Comment: Divya min D deficiency has been defined by the [place] [employer] and an Endocrine Society practice guideline as a level of serum 25-OH vitamin D less than 20 ng/mL (1,2). The Endocrine Society went on to further define vitamin D insufficiency as a level between 21 and 29 ng/mL (2). 1. IOM ([place] [employer]). 2010. Dietary reference intakes for calcium and D. [place]: The National Academies Press. 2. Sundar CORDERO, Dinorah RIVERA, Kimberly GIBSON, et al. Evaluation, treatment, and prevention of vitamin D deficiency: an Endocrine Society clinical practice guideline. JCEM. 2010; 96(7):1911-30. Performed By: #### V ITADLC #### [facility] [address] [place] [address] Dr. Chana Ceballos CBC AUTO DIFFon 10-05-2021 BASO # 0.0 103/ul Normal 0.0-0.1 [facility] Comment on above: Performed By: #### C BC #### [facility] [address] [place] [address] Dr. Chana Ceballos Basophils/100 WBC (Bld) 0.3 % Normal 0.2-2.0 [facility] Comment on above: Performed By: #### C BC #### [facility] [address] [place] [address] Dr. Chana Ceballos EO # 0.2 103/ul Normal 0.0-0.7 [facility] Comment on above: Performed By: #### C BC #### [facility] [address] [place] [address] Dr. Chana Ceballos Eosinophils/100 WBC (Bld) 2.1 % Normal 0.9-7.0 [facility] Comment on above: Performed By: #### C BC #### [facility] [address] [place] [address] Dr. Chana Ceballos Erythrocyte distribution width (RBC) [Ratio] 12.3 % Normal 11.0-15.0 [facility] Comment on above: Performed By: #### C BC #### [facility] [address] [place] [address] Dr. Chana Ceballos Hematocrit (Bld) [Volume fraction] 41.7 % Normal 36.0-48.0 [facility] Comment on above: Performed By: #### C BC #### [facility] [address] [place] [address] Dr. Chana Ceballos Hemoglobin (Bld) [Mass/Vol] 13.6 g/dL Normal 12.0-16.0 [facility] Comment on above: Performed By: #### C BC #### [facility] [address] [place] [address] Dr. Chana Ceballos IG # 0.04 10e3/ul Critically high 0.00-0.03 [facility] Comment on above: Performed By: #### C BC #### [facility] [address] [place] [address] Dr. Chana Ceballos IG % 0.6 % Critically high 0.0-0.5 [facility] Comment on above: Performed By: #### C BC #### [facility] [address] [place] [address] Dr. Chana Ceballos LYMPH # 1.4 103/ul Normal 1.2-3.8 [facility] Comment on above: Performed By: #### C BC #### [facility] [address] [place] [address] Dr. Chana Ceballos Lymphocytes/100 WBC (Bld) 19.8 % Critically low 20.5-60.0 [facility] Comment on above: Performed By: #### C BC #### [facility] [address] [place] [address] Dr. Chana Ceballos MANUAL DIFF REQ NO Normal [facility] Comment on above: Performed By: #### C BC #### [facility] [address] [place] [address] Dr. Chana Ceballos MCH (RBC) [Entitic mass] 30.3 pg Normal 26.7-34.0 [facility] Comment on above: Performed By: #### C BC #### [facility] [address] [address] [address] Chana Ceballos MCHC (RBC) [Mass/Vol] 32.6 g/dL Normal 29.9-35.2 [facility] Comment on above: Performed By: #### C BC #### [facility] [address] [address] [address] Chana Ceballos MCV (RBC) [Entitic vol] 92.9 fL Normal 81.0-99.0 [facility] Comment on above: Performed By: #### C BC #### [facility] [address] [place] [address] Dr. Chana Ceballos MONO # 0.7 103/ul Normal 0.3-0.8 [facility] Comment on above: Performed By: #### C BC #### [facility] [address] [place] [address] Dr. Chana Ceballos Monocytes/100 WBC (Bld) 10.2 % Normal 1.7-12.0 [facility] Comment on above: Performed By: #### C BC #### [facility] [address] [place] [address] Dr. Chana Ceballos NEUT # 4.7 103/ul Normal 1.4-6.5 [facility] Comment on above: Performed By: #### C BC #### [facility] [address] [place] [address] Dr. Chana Ceballos Neutrophils/100 WBC (Bld) 67.0 % Normal 43.0-75.0 [facility] Comment on above: Performed By: #### C BC #### [facility] [address] [address] [address] Chana Ceballos Platelet mean volume (Bld) [Entitic vol] 11.0 fL Normal 9.5-13.5 [facility] Comment on above: Performed By: #### C BC #### [facility] [address] [address] [address] Chana Ceballos PLT 212 103/ul Normal 150-450 [facility] Comment on above: Performed By: #### C BC #### [facility] [address] [address] [address] Chana Ceballos WBC 7.1 103/ul Normal 4.0-11.0 [facility] Comment on above: Performed By: #### C BC #### [facility] [address] [address] [address] Chana Ceballos FREE T3on 10-05-2021 FREE T3 2.32 pg/mlL Normal 2.18-3.98 [facility] Comment on above: Performed By: #### T SH, CMP, LIPID, FT3 #### [facility] [address] [place] [address] Dr. Chana Ceballos GLYCOHEMOGLOBIN A1Con 2021 ADA RECOMMENDATION SEE BELOW Normal [facility] Comment on above: Result Comment: ADA RECOMMENDED LIMIT 4.0 - 6.0 ADA THERAPEUTIC TARGET < 7.0 ACTION SUGGESTED > 7.0 Performed By: #### A 1C #### [facility] [address] [place] [address] Dr. Chana Ceballos Glucose [Mass/Vol] 169 mg/dL Normal [facility] Comment on above: Performed By: #### A 1C #### [facility] [address] [place] [address] Dr. Chana Ceballos HbA1c (Bld) [Mass fraction] 7.5 % Critically high 4.5-6.2 [facility] Comment on above: Performed By: #### A 1C #### [facility] [address] [place] [address] Dr. Chana Ceballos LIPID PROFILEon 10-05-2021 CHOL-HDL RATIO NORM SEE BELOW Normal [facility] Comment on above: Result Comment: 3.3 - 4.4 LOW RISK 4.4 - 7.1 AVERAGE RISK 7.1 - 11.0 MODERATE RISK >11.0 HIGH RISK Performed By: #### T SH, CMP, LIPID, FT3 #### [facility] [address] [address] [address] Chana Ceballos Cholesterol [Mass/Vol] 217 mg/dL Critically high <=200 [facility] Comment on above: Performed By: #### T SH, CMP, LIPID, FT3 #### [facility] [address] [address] [address] Chana Ceballos Cholesterol in HDL [Mass/Vol] 38 mg/dL Critically low 40-60 [facility] Comment on above: Performed By: #### T SH, CMP, LIPID, FT3 #### [facility] [address] [address] [address] Chana Ceballos Cholesterol in LDL [Mass/Vol] 137.4 mg/dL Normal [facility] Comment on above: Performed By: #### T SH, CMP, LIPID, FT3 #### [facility] [address] [address] [address] Chana Ceballos Cholesterol.total/Ch olesterol in HDL [Mass ratio] 5.7 {ratio} Normal [facility] Comment on above: Performed By: #### T SH, CMP, LIPID, FT3 #### [facility] [address] [place] [address] Dr. Chana Ceballos HDL NORMAL > or = 60 mg/dl - LOW CARDIOVASCULAR RISK <40 mg/dl - HIGH CARDIOVASCULAR RISK Normal [facility] Comment on above: Performed By: #### T SH, CMP, LIPID, FT3 #### [facility] [address] [place] [address] Dr. Chana Ceballos LDL CALC NORMAL SEE BELOW Normal [facility] Comment on above: Result Comment: <100 mg/dl OPTIMAL 100 - 129 mg/dl NEAR OR ABOVE OPTIMAL 130 - 159 mg/dl BORDERLINE HIGH 160 - 189 mg/dl HIGH >190 mg/dl VERY HIGH Performed By: #### T SH, CMP, LIPID, FT3 #### [facility] [address] [address] [address] Chana Ceballos Triglyceride [Mass/Vol] 208 mg/dL Critically high <=150 [facility] Comment on above: Performed By: #### T SH, CMP, LIPID, FT3 #### [facility] [address] [address] [address] Chana Ceballos VLDL CALC 41.6 mg/dL Normal [facility] Comment on above: Performed By: #### T SH, CMP, LIPID, FT3 #### [facility] [address] [address] [address] Chana Ceballos PROF 14(COMP METB)on 022 Albumin [Mass/Vol] 4.2 g/dL Normal 3.4-5.0 [facility] Comment on above: Performed By: #### T SH, CMP, LIPID, FT3 #### [facility] [address] [address] [address] Chana Ceballos Albumin/Globulin [Mass ratio] 1.2 {ratio} Normal [facility] Comment on above: Performed By: #### T SH, CMP, LIPID, FT3 #### [facility] [address] [place] [address] Dr. Chana Ceballos ALP [Catalytic activity/Vol] 61 U/L Normal 46-116 [facility] Comment on above: Performed By: #### T SH, CMP, LIPID, FT3 #### [facility] [address] [address] [address] Chana Ceballos ALT [Catalytic activity/Vol] 29 U/L Normal 14-59 [facility] Comment on above: Performed By: #### T SH, CMP, LIPID, FT3 #### [facility] [address] [address] [address] Chana Ceballos Anion gap [Moles/Vol] 14.3 mmol/L Normal [facility] Comment on above: Performed By: #### T SH, CMP, LIPID, FT3 #### [facility] [address] [address] [address] Chana Ceballos AST [Catalytic activity/Vol] 17 U/L Normal 15-37 [facility] Comment on above: Performed By: #### T SH, CMP, LIPID, FT3 #### [facility] [address] [address] [address] Chana Ceballos Bilirubin [Mass/Vol] 0.2 mg/dL Normal 0.2-1.0 [facility] Comment on above: Performed By: #### T SH, CMP, LIPID, FT3 #### [facility] [address] [place] [address] Dr. Chana Ceballos Calcium [Mass/Vol] 9.0 mg/dL Normal 8.5-10.1 [facility] Comment on above: Performed By: #### T SH, CMP, LIPID, FT3 #### [facility] [address] [place] [address] Dr. Chana Ceballos Chloride [Moles/Vol] 103 mmol/L Normal 98-107 [facility] Comment on above: Performed By: #### T SH, CMP, LIPID, FT3 #### [facility] [address] [place] [address] Dr. Chana Ceballos CO2 [Moles/Vol] 25.1 mmol/L Normal 21.0-32.0 [facility] Comment on above: Performed By: #### T SH, CMP, LIPID, FT3 #### [facility] [address] [place] [address] Dr. Chana Ceballos Creatinine [Mass/Vol] 0.93 mg/dL Normal 0.55-1.02 [facility] Comment on above: Performed By: #### T SH, CMP, LIPID, FT3 #### [facility] [address] [place] [address] Dr. Chana Ceballos EGFR-AF PALESTINIAN >60 Normal >=60 [facility] Comment on above: Performed By: #### T SH, CMP, LIPID, FT3 #### [facility] [address] [place] [address] Dr. Chana Ceballos EGFR-NON AF PALESTINIAN >60 Normal >=60 [facility] Comment on above: Performed By: #### T SH, CMP, LIPID, FT3 #### [facility] [address] [place] [address] Dr. Chana Ceballos Globulin (S) [Mass/Vol] 3.4 g/dL Normal [facility] Comment on above: Performed By: #### T SH, CMP, LIPID, FT3 #### [facility] [address] [address] [address] Chana Ceballos Glucose [Mass/Vol] 198 mg/dL Critically high 74-106 [facility] Comment on above: Performed By: #### T SH, CMP, LIPID, FT3 #### [facility] [address] [place] [address] Dr. Chana Ceballos Potassium [Moles/Vol] 4.4 mmol/L Normal 3.5-5.1 [facility] Comment on above: Performed By: #### T SH, CMP, LIPID, FT3 #### [facility] [address] [place] [address] Dr. Chana Ceballos Protein [Mass/Vol] 7.6 g/dL Normal 6.4-8.2 [facility] Comment on above: Performed By: #### T SH, CMP, LIPID, FT3 #### [facility] [address] [place] [address] Dr. Chana Ceballos Sodium [Moles/Vol] 138 mmol/L Normal 136-145 [facility] Comment on above: Performed By: #### T SH, CMP, LIPID, FT3 #### [facility] [address] [place] [address] Dr. Chana Ceballos Urea nitrogen [Mass/Vol] 18.0 mg/dL Normal 7.0-18.0 [facility] Comment on above: Performed By: #### T SH, CMP, LIPID, FT3 #### [facility] [address] [place] [address] Dr. Chana Ceballos Urea nitrogen/Creatinine [Mass ratio] 19.4 mg/mg Normal [facility] Comment on above: Performed By: #### T SH, CMP, LIPID, FT3 #### [facility] [address] [place] [address] Dr. Chana Ceballos TSHon 10-05-2021 TSH 2.219 uIU/mL Normal 0.358-3.740 [facility] Comment on above: Performed By: #### T SH, CMP, LIPID, FT3 #### [facility] [address] [place] [address] Dr. Chana Ceballos Vital Signs Date Time Vital Sign Value Performing Clinician Facility 09-20-2024 10:07-0400 Body height 167.6 cm Adrien Sawyer DPM Work Phone: [facility] 09-20-2024 10:07-0400 Body mass index (BMI) [Ratio] 38.74 kg/m2 Adrien Sawyer DPM Work Phone: [facility] 09-20-2024 10:07-0400 Body weight 108.86 kg Adrienivy Jacques DPM Work Phone: [facility] 09-20-2024 10:07-0400 Respiratory rate 18 /min Adrien Jacques DPM Work Phone: [facility] 09-11-2024 11:33-0400 Body temperature 98.4 [degF] Dolly Hadley DDS Work Phone: [facility] 09-11-2024 11:33-0400 Diastolic blood pressure 100 mm[Hg] Dolly Kanani DDS Work Phone: [facility] 09-11-2024 11:33-0400 Systolic blood pressure 160 mm[Hg] Dolly Kanani DDS Work Phone: [facility] 07-24-2024 10:45-0400 Diastolic blood pressure 82 mm[Hg] Jaja Parry MD Work Phone: [facility] 07-24-2024 10:45-0400 Heart rate 75 /min Jaja Parry MD Work Phone: [facility] 07-24-2024 10:45-0400 Respiratory rate 16 /min Jaja Parry MD Work Phone: [facility] 07-24-2024 10:45-0400 SaO2% (BldA) [Mass fraction] 93 % Jaja Parry MD Work Phone: [facility] 07-24-2024 10:45-0400 Systolic blood pressure 123 mm[Hg] Jaja Parry MD Work Phone: [facility] 07-24-2024 10:12-0400 Inhaled oxygen flow rate 3 L/min Jaja Parry MD Work Phone: [facility] 07-24-2024 09:26-0400 Body height 167.64 cm Jaja Parry MD Work Phone: [facility] 07-24-2024 09:26-0400 Body weight 102.05 kg Jaja Parry MD Work Phone: [facility] 07-12-2024 10:100400 Body height 167.6 cm Adrien Jacques DPM Work Phone: [facility] 07-12-2024 10:10-0400 Body mass index (BMI) [Ratio] 38.74 kg/m2 Adrien Jacques DPM Work Phone: [facility] 07-12-2024 10:[id number] Body weight 108.86 kg Adrien Jacques DPM Work Phone: [facility] 07-12-2024 10:10-0400 Respiratory rate 18 /min Adrien Jacques DPM Work Phone: [facility] 07-12-2023 11:25-0400 Diastolic blood pressure 88 mm[Hg] MD Jaja Parry Work Phone: [facility] 07-12-2023 11:25-0400 Heart rate 82 /min MD Jaja Parry Work Phone: [facility] 07-12-2023 11:25-0400 Respiratory rate 16 /min MD Jaja Parry Work Phone: [facility] 07-12-2023 11:25-0400 SaO2% (BldA) [Mass fraction] 99 % MD Jaja Parry Work Phone: [facility] 07-12-2023 11:25-0400 Systolic blood pressure 138 mm[Hg] MD Jaja Parry Work Phone: [facility] 05-28-2024 10:51-0400 Inhaled oxygen flow rate 3 L/min MD Jaja Parry Work Phone: [facility] 07-12-2023 09:56-0400 Body height 167.64 cm MD Jaja Parry Work Phone: [facility] 07-12-2023 09:56-0400 Body weight 108.86 kg MD Jaja Parry Work Phone: [facility] 06-17-2023 08:47-0400 Body height 167.64 cm [facility] 06-17-2023 08:47-0400 Body mass index (BMI) [Ratio] 38.4 kg/m2 [facility] 06-17-2023 08:47-0400 Body weight 108 kg [facility] 05-09-2023 08:58-0400 Body height 167.64 cm [facility] 05-09-2023 08:58-0400 Body mass index (BMI) [Ratio] 38.7 kg/m2 [facility] 05-09-2023 08:58-0400 Body weight 108.94 kg [facility] 07-28-2022 08:15-0400 Body height 167.64 cm Hudson Gu Other [facility] [employer] Other 07-28-2022 08:15-0400 Body mass index (BMI) [Ratio] 38.73 kg/m2 Hudson Gu Other [employer] Other 07-28-2022 08:15-0400 Body weight 108.86 kg Hudson Gu Other [employer] Other 12-12-2021 13:05-0400 Body height 167.64 cm Liliya Fletcher Other [employer] Other 12-12-2021 13:05-0400 Body mass index (BMI) [Ratio] 35.51 kg/m2 Liliya Fletcher Other [employer] Other 12-12-2021 13:05-0400 Body temperature 97.9 [degF] Liliya Fletcher Other [employer] Other 12-12-2021 13:05-0400 Body weight 99.79 kg Liliya Fletcher Other [employer] Other 12-12-2021 13:05-0400 Diastolic blood pressure 74 mm[Hg] Liliya Fletcher Other [employer] Other 12-12-2021 13:05-0400 Respiratory rate 18 /min Liliya Fletcher Other [employer] Other 12-12-2021 13:05-0400 SaO2% (BldA) [Mass fraction] 99 % Liliya Fletcher Other [employer] Other 12-12-2021 13:05-0400 Systolic blood pressure 138 mm[Hg] Liliya Fletcher Other [employer] Other 2021 12:30-0400 Body height 167.64 cm Dorys Pughault Other [employer] Other 2021 12:30-0400 Body mass index (BMI) [Ratio] 36.31 kg/m2 Dorys Prudencio Other [employer] Other 2021 12:30-0400 Body temperature 97 [degF] Dorys Prudencio Other [employer] Other 2021 12:30-0400 Body weight 102.06 kg Dorys Prudencio Other [facility] [employer] Other Encounters Encounter Date Encounter Type Care [...] Clinic Start: 09-11-2024 ambulatory Dolly Hadley DDCm [facility] Start: 09-06-2024 End: 09-06-2024 ambulatory Jaja Parry MD Work Phone: [facility] Work Phone: Start: 09-06-2024 End: 09-06-2024 Departed Referred Jonathan العلي MD -[facility] Start: 09-05-2024 End: 09-05-2024 ambulatory Jaja Parry MD Work Phone: [facility] Work Phone: Start: 09-05-2024 End: 09-05-2024 Departed Referred Vielka Galeano MD -[facility] Start: 08-30-2024 End: 08-30-2024 ambulatory Jaja Parry MD Work Phone: [facility] Work Phone: Start: 08-30-2024 End: 08-30-2024 Patient encounter procedure Gregg Kapoor MD -[facility] Work Phone: Start: 08-27-2024 End: 08-27-2024 Encounter identifier Dolly Hadley DDS Work Phone: [facility] Start: 08-13-2024 End: 08-13-2024 ambulatory Jaja Parry MD Work Phone: [facility] Work Phone: Start: 08-13-2024 End: 08-13-2024 Patient encounter procedure Gregg Kapoor MD -[facility] Work Phone: Start: 07-24-2024 Non-patient / Non-visit Christal Parry MD Work Phone: [facility] Work Phone: Start: 07-24-2024 End: 07-24-2024 Admission to same day surgery center Jaja Parry MD Work Phone: [facility] Work Phone: Start: 07-24-2024 End: 07-24-2024 ambulatory Jaja Parry MD Work Phone: [facility] Work Phone: Start: 07-12-2024 End: 07-12-2024 Bamboo [...] polyneuropathy, without long-term current use of insulin ([facility]); Pain due to onychomycosis of toenails of both feet Start: 07-12-2024 End: 07-12-2024 ambulatory ADRIEN JACQUES Not Available Start: 07-11-2024 End: 07-11-2024 ambulatory [facility] Work Phone: Start: 07-11-2024 End: 07-11-2024 Patient encounter procedure [facility] Work Phone: Start: 10-13-2023 End: 10-13-2023 ambulatory MD Jaja Parry Work Phone: [facility] Work Phone: Start: 10-13-2023 End: 10-13-2023 Patient encounter procedure MD Jaja Parry Work Phone: [facility] Work Phone: Start: 08-01-2023 End: 08-01-2023 ambulatory MD Jaja Parry Work Phone: [facility] Work Phone: Start: 08-01-2023 End: 08-01-2023 Patient encounter procedure MD Jaja Parry Work Phone: [facility] Work Phone: Start: 07-12-2023 Non-patient / Non-visit MD Linnea Parry Work Phone: [facility] Work Phone: Start: 07-12-2023 End: 07-12-2023 Admission to same day surgery center MD Jaja Parry Work Phone: [facility] Work Phone: Start: 07-12-2023 End: 07-12-2023 ambulatory MD Jaja Parry Work Phone: [facility] Work Phone: Start: 06-30-2023 End: 06-30-2023 Patient encounter procedure MD Jaja Parry Work Phone: [facility] Work Phone: Start: 06-17-2023 End: 06-17-2023 ambulatory [facility] [place] Work Phone: Start: 06-17-2023 End: 06-17-2023 Patient encounter procedure [facility] Work Phone: Start: 05-09-2023 End: 05-09-2023 ambulatory [facility] Work Phone: Start: 05-09-2023 End: 05-09-2023 Patient encounter procedure [facility] Work Phone: Start: 07-28-2022 End: 07-28-2022 ambulatory uHdson Gu Other [employer] Other Start: 07-28-2022 Office outpatient vi sit 25 minutes Hudson Gu [facility] Start: 06-23-2022 End: 06-24-[address] JAJA PARRY . Facility:[facility] Start: 06-14-2022 End: 06-14-2022 ambulatory Hudson Gu Other [employer] Other Start: 06-14-2022 Telephone encounter Hudson Gu G [facility] Start: 03-09-2022 End: 04-08-2022 ambulatory HUDSON GU Facility:[facility] Start: 02-22-2022 End: 02-23-2022 ambulatory LILIYA HUTTON Facility:[facility] Start: 12-12-2021 Office outpatient vi sit 15 minutes Liliya Fletchre [facility] Start: 12-12-2021 End: 12-12-2021 ambulatory MD Jaja Parry Work Phone: [employer] Other Start: 12-12-2021 End: 12-12-2021 Patient encounter procedure MD Jaja Parry Work Phone: [facility] Start: 2021 End: 2021 ambulatory Dorys Prudencio Other [facility] [employer] Other Start: 2021 Office outpatient ne w 20 minutes Dorys Flannery [facility] Start: 10-07-2021 Encounter for genera l adult medical examination without abnormal findings DR JAJA PARRY . [facility] Start: 10-05-2021 End: 10-06-2021 ambulatory [...] (#1) [facility] Start: 09-24-[address] [facility] Work Phone: Start: 09-20-2024 End: 09-20-2024 Patient encounter procedure [facility] Comment on above: Diabetes mellitus du e to underlying condition with diabetic polyneuropathy, without long-term current use of insulin (HCC) (Primary Dx); Pain due to onychomycosis of toenails of both feet; Venous insufficiency Start: 09-11-2024 [employer] [facility] Work Phone: Start: 09-06-2024 Urine culture [facility] Start: 09-06-2024 Bacteria identified in Urine by Culture Urine Culture [facility] Start: 09-05-2024 Bacteria identified in Urine by Culture Urine Culture [facility] Start: 09-05-2024 Urine culture [facility] Start: 08-30-2024 X-ray of left knee, two views XR knee LT 2V [facility] Start: 08-30-2024 XR Knee - left 2 Views [facility] Start: 08-27-2024 [employer] [facility] Work Phone: Start: 07-24-2024 [facility] Start: 07-12-2024 End: 07-12-2024 Patient encounter procedure 07/12/2024 11:00 AM EDT Office Visit [facility] [address] [address] Adrien Jacques DPM [address] [address] Arrived [facility] Comment on above: Arrived Start: 10-13-2023 X-ray of left knee XR knee LT 2V [facility] Start: 10-13-2023 XR Knee - left 2 Views [facility] Start: 07-12-2023 [facility] Start: 2003 Screening for malign ant neoplasm of breast Mammogram [facility] Start: 10-10-1993 Screening for malign ant neoplasm of cervix [facility] Start: 10-10-1984 Screening for malign ant neoplasm of cervix Pap Smear [facility] Start: 1965 Screening for malign ant neoplasm of colon [facility] Patient Education Know your Meds Felter Non Diagnostic Block [facility] Work Phone: Patient referral [facility] Work Phone: Immunizations Immunization Date Immunization Notes Care Provider Fa cility 10-31-2023 influenza virus vacc ine, unspecified formulation Adrien Jacques DPMargie Work Phone: [facility] Healthcare Payers Date Payer Category Payer Medicaid [facility] [id number] 2024 Medicaid [id number] 2024 Self-pay [id number] 2024 Private Health Insurance [facility] [id number] 2024 Unknown [id number] 2023 Self-pay 2012 Unknown [id number] 1965 Unknown [id number]. 593 1963 Unknown [id number] [id number]. 593 1963 Unknown [id number] [id number]. 593 1963 Unknown [id number] [id number]. 593 1963 Unknown [id number] [id number]. 716 1963 Unknown [id number] [id number]. 1259 1963 Unknown [id number] [id number]. 1259 1959 Blue Cross Blue Shield [id number] Unknown [place] BC/BS [id number] Unknown [id number] 531 Unknown [id number]. 531 Unknown [id number] [id number]. 531 Unknown [id number] [id number]. 531 Unknown [id number]. 531 Social History Date Type Detail Facility Start: 01-17-2023 End: 07-12-2024 Sex Assigned At [employer] Other Start: 1965 Sex Assigned At Female [facility] Start: 01-17-2023 Tobacco smoking status HIIS Occasional tobacco smoker [facility] History of tobacco use Cigarette Smoker [facility] Start: 01-17-2023 End: 07-12-2024 History of Social function [facility] Start: 01-17-2023 Tobacco Comment 5 or less cigarettes/day [facility] Start: 1965 Sex assigned at Not on file [facility] Start: 07-11-2024 End: 07-24-2024 Tobacco smoking status NHIS Ex-smoker (finding) [facility] Start: 07-11-2024 End: 07-24-2024 Sex Female (finding) [facility] Start: 08-27-2024 End: 09-11-2024 Tobacco smoking status [facility] Unknown if ever smoked [facility] Start: 08-27-2024 Alcohol intake Alcohol Use Details [facility] Sexual Orientation Straight or heterosexual [facility] Work Phone: Start: 01-26-[address] [facility] Goals Date Patient Goal Desired Activity [...] and negative PT pedal pulses NEURO: 5.07 [place] monofilament test intact to digits and [...] Adrien Jacques DPM documented in this encounter [facility] 09-11-2024 History of Presen t illness Narrative Encounter Date DL DL [facility] Work Phone: 1(292) 695-778807-14-2025 History of Present illness Narrative* Encounter Date Complaint History Of Prese nt Illness ext ext [facility] Work Phone: 1(903) 130-532406-10-2025 [place] [id number] Pain Management Procedure Note Signed Patient: Susanne Clark MR#: [id number] : 1965 Acct:[id number] Age/Sex: 58 / F Adm Date: 5 Loc: Room: Type: [facility] Attending Dr: Gregg Nassar MD Copies [...] MD 07/24/24 1008 Signed By: 07/24/24 1022 [facility]05-29-2025 History of Present illness Narrative * Adrien [...] and negative PT pedal pulses NEURO: 5.07 [place] monofilament test intact to digits and forefoot bilaterally 125Hz tuning fork diminished to 1st MPJ bilaterally ORTHO: Positive pain on palpation to toenails of the left 1,2,3,4,5 toes and right 1,2,3,4,5 toes ASSESSMENT 1. Venous insufficiency 2. Diabetes mellitus due to underlying condition with diabetic polyneuropathy, without long-term current use of insulin ([facility]) 3. Pain due to onychomycosis of [...] edema. Discussed condition in detail. Recommendation for [id number] compression stockings at this time and may consider prescription stockings in the future. Adrien Jacques DPM [id number] Evaluation note* Diagnosis Onset Date Resolution Status Admit Date Chronic pain acute July 11 9:53am Fibromyalgia acute July 11 9:53am Osteoarthritis of left knee acute July 11, 2024 9:53am [facility] Work Phone: 1(672) 152-454205-28-2025 Evaluation note* Diagnosis Onset Date Resolution Status Admit Date Chronic pain acute July 11 9:53am Fibromyalgia acute July 11 9:53am Osteoarthritis of left knee acute July 11, 2024 9:53am Chronic pain acute August 13, 2 025 7:58am Fibromyalgia acute August 13, 2 025 7:58am Osteoarthritis of left knee acute August 13, 2024 7:58am [facility] Work Phone: 1(688) 491-814405-28-2025 Evaluation note* Diagnosis Onset Date Resolution Status [...] left knee acute August 30, 2024 9:02am [facility] Work Phone: 1([phone]) 419-904205-28-2024 Procedure [facility]03-25-2024 Evaluation note* Author Mare Ramirez [facility] Authored May 09, 2023 9:1 6am We performed a 4/1cc Marcain e / Kenalog cortisone injection into the knee joint under sterile technique. Patient tolerated the injection well without adverse reaction. Patient can follow up as needed. Note scribed by ESEQUIEL Valle, reviewed and amended by myself Hudson Gu D.O. [facility] Work Phone: 1([phone]) [phone] Evaluation note* Encounter Date Diagnosis Assessment Notes [...] tolerated the injection well without adverse reaction. [employer] Other 05-01-2023 Evaluation note* Encounter Date Diagnosis Assessment Notes Treatment Notes Treatment Clinical Notes June, Acute meniscal tear of left knee, initial encounter (ICD-10 - S83.207A) [employer] Other 10-29-2022 Evaluation note* Encounter Date Diagnosis [...] Nov, Other Contusion mater ial was printed [employer] Other 08-28-2022 Evaluation note* Encounter Date Diagnosis [...] COVID POSITIVE education handout discharge instructions. given. [employer] Other Consult note* Clinical Note Date No Information [facility] Work Phone: Discharge summary* Clinical Note Date No Information [facility] Work Phone: Evaluation noteNo assessment information available [facility] Work Phone: Evaluation note* Author Mare Ramirez [facility] Authored May 09, 2023 9:1 6am We performed a 4/1cc Marcain e / Kenalog cortisone injection into the knee joint under sterile technique. Patient tolerated the injection well without adverse reaction. Patient can follow up as needed. Note scribed by ESEQUIEL Valle, reviewed and amended by myself Hudson Gu D.O. [facility] Work Phone: Evaluation note* Diagnosis Onset Date Resolution Status Chronic pain acute Knee pain acute Osteoarthritis of left knee acute Chronic pain acute Contusion of left knee acute Knee pain acute Osteoarthritis of left knee acute [facility] Work Phone: Evaluation note* Diagnosis Venous insufficiency- Primary Unspecified venous (peripheral) insufficiency Diabetes mellitus due to underlying condition with diabetic polyneuropathy, without long-term current use of insulin ([facility]/H[facility]) Pain due to onychomycosis of toenails of both feet documented in this encounter [facility] HealthcareEvaluation note* Diagnosis Onset Date Resolution Status Admit Date Chronic pain acute July 11 9:53am Fibromyalgia acute July 11 9:53am Osteoarthritis of left knee acute July 11, 2024 9:53am [facility] Work Phone: Evaluation note* Type Assessment Date No Information [facility] Work Phone: Evaluation note* Diagnosis Diabetes mellitus due to underlying condition with diabetic polyneuropathy, without long-term current use of insulin ([facility])- Primary Pain due to onychomycosis of toenails of both feet Venous insufficiency Unspecified venous (peripheral) insufficiency [facility] Clinical Note Date No Information [facility] Work Phone: History general Narrative - Reported* Type Description Date Medical History diabetes Surgical History c-sections - 2 Surgical History oophorectomy Surgical History hysterectomy [facility] [employer] Other History general Narrative - Reported* Type Description Date Medical History diabetes Medical History high cholesterol Surgical History c-sections - 2 Surgical History oophorectomy Surgical History hysterectomy [facility] [employer] Other History of Past illness Narrative* Condition Effective Dates (start - stop) O utcome No Information [facility] Work Phone: Instructions* Date Instruction Additional Infor mation No Information [facility] Work Phone: Progress note* Clinical Note Date No Information [facility] Work Phone: Reason for referral (narrative)* Reason For Referral No Information [facility] Work Phone: Review of systems Narrative - Reported* System Pos/Neg Findings No Information 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 Start Date End Date Jaja Parry MD [address] [place] [address] PCP - General Family Medicine 02/02/23 Team [...] (start - stop) Status Members No Information [employer] Relationship Specialty Start Date End Date Jaja Parry MD [address] [place] [address] PCP - General Family Medicine 02/02/23 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 DATE CREATED AUTHOR AUTHOR'S ORGANIZ ATION 09/12/2024 [facility] DATE CREATED AUTHOR AUTHOR'S ORGANIZ ATION 09/22/2024 [facility] EPIC FOR RECORDS PERTAINING [...] ON THE PRIMARY CLINICAL RECORDS. [facility]. provides no warranty or guarantee of the accuracy or completeness of information in this document.
[2024-10-22 18:17] LABS: Lactate/Lactic Acid 2.4 mmol/L (0.4-2.0)
[2024-10-22] MEDS: HYDROCODONE/ACET 5-325 MG TABLET 1 TAB PO (19:12)
--- OUTSIDE RECORDS SUMMARY | 2024-10-22 20:52 | XMS_ITS | CCD ---
Author Organization [facility] CliniSynm Care Team Providers Care Cracker Dough Mixer Name Role Phone Dorys Flannery Unavailable Liliya [...] Other Provider Vielka Galeano MD Attending Provider [phone] Jonathan العلي MD Attending Provider Vielka Galeano [...] Inhibitors (1 source) Lisinopril Drug Allergy 4 [facility] Cephalosporins (antibiotic) (1 source) Cephalexin Drug Allergy 4 Unknown Reaction [facility] (5 sources) Cephalexin; Translations: [Keflex] Drug Allergy 4 Unknown [facility] (1 source) Corticosteroids Drug allergy (disorder) 4 [facility] (1 source) DULoxetine Drug Allergy 4 [facility] (17 sources) Cephalexin; Translations: [cephalexin] Drug Allergy 3 Unknown Reaction [facility] (17 sources) Lisinopril; Translations: [lisinopril] Drug Allergy 3 [facility] Medications Current Medications Medication Drug [...] Kenalog-40 14 Jul, 2022 40 mg Vit C-S.Ffdfgn-Szumbn-Ugekw Sd (Tart Thapa) 50-633-18-75-20 mg capsule (11 sources) Start: 07-12-2023 End: 07-24-2024 Vit C-S.Feajzj-Cvrveo-Gjpep Sd (Tart Thapa) 19-191-70-75-20 mg capsule Discontinued CAP PO July 12, 2023 12:00am July 24, 2024 9:24am Start: 07-12-2023 Vit C-S.Thapa -Celery-Grape Sd (Tart Thapa) [id number] mg capsule Active CAP PO July 12, [...] bacterial skin contaminants 2 Days PERFORMED BY: [place] [address] [place] [address] PATHOLOGIST HEAD TELLER RUBIA ZUNIGA M.D. Normal [facility] Comment on above: Performed By: #### C UU #### [address] Urine Cultureon 09-05-2024 Bacteria identified Cx Nom (U) ORGANISM: Escherichia coli (O:ESCCOL) [place] Count >100,000 Aerobic MADAN Charge (NMIC56) ------ [...] RESISTANT TO ALL B-LACTAM DRUGS. PERFORMED BY: [place] [address] PATHOLOGIST HEAD TELLER RUBIA ZUNIGA M.D. Normal [facility] Comment on above: Performed By: #### C UU #### [address] Urine cultureOrdered By: Yeni Galeano on 09-05-2024 Bacteria identified Cx Nom (U) Escherichia coli Abnormal [facility] X-ray reportOrdered By: Ander Harris on 08-30-2024 Study report [facility] [place] [address] XRay Report Signed Patient: Susanne Clark MR#: [id number] : 1965 Acct:[id number] Age/Sex: 58 / F ADM Date: 5 Loc: [facility] Room: Type: REG CLI Attending Dr: Gregg [...] Harris M.D. 08/30/2024 4:59 PM Dictation Location: [place] [address] Transcribed By: [facility] 08/30/241658 Dictated By: Dann Harris DO 08/30/241657 Signed By: 08/30/24 1659 [facility] XR knee LT 2Von 08-30-2024 XR knee LT 2V [facility] [place] [address] XRay Report Signed Patient: Susanne Clark MR#: [id number] : 1965 Acct:[id number] Age/Sex: 58 / F ADM Date: 08/30/24 Loc: [facility] Room: Type: REG CLI Attending Dr: Gregg [...] Dictation Location: RADIO-PC-23 Transcribed By: [facility] 08/30/24 1659 Dictated By: Dann Harris DO 08/30/241657 Signed By: 08/30/241658 Normal [facility] XR knee LT 2Von 10-13-2023 XR knee LT 2V [facility] [address] [place] [address] XRay Report Signed Patient: Susanne Clark MR#: [id number] : 1965 Acct:[id number] Age/Sex: 58 / F ADM Date: 10/13/23 Loc: [facility] Room: Type: [facility] Attending Dr: Gregg Nassar MD Copies [...] Dictation Location: RADIO-PC-08 Transcribed By: [facility] 10/13/23 1232 Dictated By: Freedom Foster Jr, DO 10/13/23 1231 Signed By: 10/13/23 1232 Normal [facility] MRI KNEE LT WO [...] by: NOHEMY MARCOS Date: 2022-02-22 08:51 Normal [facility] XR knee LT 4V*on 12-12-2021 XR knee LT 4V* [facility] [employer] Other XR knee LT 4V* [facility] [employer] Other XR knee LT 4V* [address] [facility] [employer] Other XR knee LT 4V* [place] [address] No [facility] [employer] Other XR knee LT 4V* XRay Report [employer] Other XR knee LT 4V* Signed [employer] Other XR knee LT 4V* Patient: Susanne Clark MR#: [id number] G[employer]an [employer] Other XR knee LT 4V* [id number] [employer] Other XR knee LT 4V* : 1965 Acct:[id number] [employer] Other XR knee LT 4V* Age/Sex: 56 / F ADM Date: 12/12/21 [employer] Other XR knee LT 4V* Loc: [facility] Room: Type: REG CLI [employer] Other XR knee LT 4V* Attending Dr: Liliya PALACIO [employer] Other XR knee LT 4V* Copies to: HAKEEM Lim [employer] Other XR knee LT 4V* Ordering Provider: HAKEEM Lim [employer] Other XR knee LT 4V* Date of Service: 12/12/21 [employer] Other XR knee LT 4V* XR/XR knee LT 4V*: Acute pain of left knee [employer] Other XR knee LT 4V* XR knee LT 4V* 12/12/2021 12:41 PM [employer] Other XR knee LT 4V* SIGNS AND SYMPTOMS: Left knee pain after fall [employer] Other XR knee LT 4V* PROTOCOL: Frontal, lateral, and oblique radiographs of the left knee [employer] Other XR knee LT 4V* COMPARISON: None Nort [employer] Other XR knee LT 4V* FINDINGS: [employer] Other XR knee LT 4V* There is mild narrowing of the patellofemoral joint space with minimal narrowing of the medial [employer] Other XR knee LT 4V* weightbearing joint space. There is no evidence of fracture. No dislocation or subluxation. No [employer] Other XR knee LT 4V* joint effusion. No significant soft tissue swelling. [employer] Other XR knee LT 4V* XR/XR knee LT 4V* [employer] Other XR knee LT 4V* IMPRESSION: [employer] Other XR knee LT 4V* No acute bony injury. [employer] Other XR knee LT 4V* Mild degenerative changes are noted, as above. [employer] Other XR knee LT 4V* Impression dictated by: Bernardo Camacho M.D.12/12/2021 12:59 PM [employer] Other XR knee LT 4V* Dictation Location: [place] [address] [employer] Other XR knee LT 4V* Transcribed By: [facility] 12/12/21 1259 [employer] Other XR knee LT 4V* Dictated By: Bernardo Camacho II, MD 12/12/21 1258 [employer] Other XR knee LT 4V* Signed By: [employer] Other XR knee LT 4V* 12/12/21 1259 [employer] Other SARS-CoV-2 (COVID-19) RNA NA A+probe Ql (Resp)on 2021 SARS-CoV-2 (COVID-19) RNA ALYSSA+probe Ql (Unsp spec) Positive [employer] Other T4 [facility] 10-06-2021 T4 [Mass/Vol] 7.2 ug/dL Normal 4.5-12.0 [facility] Comment on above: Performed By: #### T 4LC #### [facility] [address] [place] [address] Dr. Chana Ceballos VIT D 25-OH [facility] 2021 Vitamin D, 25-Hydroxy 33.8 ng/mL Normal 30.0-100.0 [facility] Comment on above: Result Comment: Divya min D deficiency has been defined by the [place] of Medicine and an Endocrine Society practice guideline as a level of serum 25-OH vitamin D less than 20 ng/mL (1,2). The Endocrine Society went on to further define vitamin D insufficiency as a level between 21 and 29 ng/mL (2). 1. IOM ([place] of Medicine). 2010. Dietary reference intakes for calcium and D. [place]: The National Academies Press. 2. Sundar CORDERO, Dinorah RIVERA, Kimberly GIBSON, et al. Evaluation, treatment, and prevention of vitamin D deficiency: an Endocrine Society clinical practice guideline. JCEM. 2010; 96(7):1911-30. Performed By: #### V ITADLC #### [facility] [address] [place] [address] Dr. Chana Ceballos CBC AUTO DIFFon 10-05-2021 BASO # 0.0 103/ul Normal 0.0-0.1 [facility] Comment on above: Performed By: #### C BC #### [facility] [address] [place] [address] Dr. Chana Ceballos Basophils/100 WBC (Bld) 0.3 % Normal 0.2-2.0 [facility] Comment on above: Performed By: #### C BC #### [facility] [address] [place] [address] Dr. Chana Ceballos EO # 0.2 103/ul Normal 0.0-0.7 [facility] Comment on above: Performed By: #### C BC #### [facility] [address] [place] [address] Dr. Chana Ceballos Eosinophils/100 WBC (Bld) 2.1 % Normal 0.9-7.0 [facility] Comment on above: Performed By: #### C BC #### [facility] [address] [place] [address] Dr. Chana Ceballos Erythrocyte distribution width (RBC) [Ratio] 12.3 % Normal 11.0-15.0 [facility] Comment on above: Performed By: #### C BC #### [facility] [address] [place] [address] Dr. Chana Ceballos Hematocrit (Bld) [Volume fraction] 41.7 % Normal 36.0-48.0 [facility] Comment on above: Performed By: #### C BC #### [facility] [address] [place] [address] Dr. Chana Ceballos Hemoglobin (Bld) [Mass/Vol] 13.6 g/dL Normal 12.0-16.0 [facility] Comment on above: Performed By: #### C BC #### [facility] [address] [place] [address] Dr. Chana Ceballos IG # 0.04 10e3/ul Critically high 0.00-0.03 [facility] Comment on above: Performed By: #### C BC #### [facility] [address] [place] [address] Dr. Chana Ceballos IG % 0.6 % Critically high 0.0-0.5 [facility] Comment on above: Performed By: #### C BC #### [facility] [address] [place] [address] Dr. Chana Ceballos LYMPH # 1.4 103/ul Normal 1.2-3.8 [facility] Comment on above: Performed By: #### C BC #### [facility] [address] [place] [address] Dr. Chana Ceballos Lymphocytes/100 WBC (Bld) 19.8 % Critically low 20.5-60.0 [facility] Comment on above: Performed By: #### C BC #### [facility] [address] [place] [address] Dr. Chana Ceballos MANUAL DIFF REQ NO Normal [facility] Comment on above: Performed By: #### C BC #### [facility] [address] [place] [address] Dr. Chana Ceballos MCH (RBC) [Entitic mass] 30.3 pg Normal 26.7-34.0 [facility] Comment on above: Performed By: #### C BC #### [facility] [address] [place] [address] [address] Chana Ceballos MCHC (RBC) [Mass/Vol] 32.6 g/dL Normal 29.9-35.2 [facility] Comment on above: Performed By: #### C BC #### [facility] [address] [place] [address] [address] Chana Ceballos MCV (RBC) [Entitic vol] 92.9 fL Normal 81.0-99.0 [facility] Comment on above: Performed By: #### C BC #### [facility] [address] [place] [address] Dr. Chana Ceballos MONO # 0.7 103/ul Normal 0.3-0.8 [facility] Comment on above: Performed By: #### C BC #### [facility] [address] [place] [address] Dr. Chana Ceballos Monocytes/100 WBC (Bld) 10.2 % Normal 1.7-12.0 [facility] Comment on above: Performed By: #### C BC #### [facility] [address] [place] [address] Dr. Chana Ceballos NEUT # 4.7 103/ul Normal 1.4-6.5 [facility] Comment on above: Performed By: #### C BC #### [facility] [address] [place] [address] Dr. Chana Ceballos Neutrophils/100 WBC (Bld) 67.0 % Normal 43.0-75.0 [facility] Comment on above: Performed By: #### C BC #### [facility] [address] [place] [address] [address] Chana Ceballos Platelet mean volume (Bld) [Entitic vol] 11.0 fL Normal 9.5-13.5 [facility] Comment on above: Performed By: #### C BC #### [facility] [address] [place] [address] [address] Chana Ceballos PLT 212 103/ul Normal 150-450 [facility] Comment on above: Performed By: #### C BC #### [facility] [address] [address] [address] Chana Ceballos WBC 7.1 103/ul Normal 4.0-11.0 [facility] Comment on above: Performed By: #### C BC #### [facility] [address] [address] [address] Chana Ceballos FREE T3on 10-05-2021 FREE T3 2.32 pg/mlL Normal 2.18-3.98 [facility] Comment on above: Performed By: #### T SH, CMP, LIPID, FT3 #### [facility] [address] [place] [address] Dr. Chana Ceballos GLYCOHEMOGLOBIN A1Con 2021 ADA RECOMMENDATION SEE BELOW Normal [facility] Comment on above: Result Comment: ADA RECOMMENDED LIMIT 4.0 - 6.0 ADA THERAPEUTIC TARGET < 7.0 ACTION SUGGESTED > 7.0 Performed By: #### A 1C #### [facility] [address] [place] [address] Dr. Chana Ceballos Glucose [Mass/Vol] 169 mg/dL Normal [facility] Comment on above: Performed By: #### A 1C #### [facility] [address] [place] [address] Dr. Chana Ceballos HbA1c (Bld) [Mass fraction] 7.5 % Critically high 4.5-6.2 [facility] Comment on above: Performed By: #### A 1C #### [facility] [address] [place] [address] Dr. Chana Ceballos LIPID PROFILEon 10-05-2021 CHOL-HDL RATIO NORM SEE BELOW Normal [facility] Comment on above: Result Comment: 3.3 - 4.4 LOW RISK 4.4 - 7.1 AVERAGE RISK 7.1 - 11.0 MODERATE RISK >11.0 HIGH RISK Performed By: #### T SH, CMP, LIPID, FT3 #### [facility] [address] [address] [address] Chana Ceballos Cholesterol [Mass/Vol] 217 mg/dL Critically high <=200 [facility] Comment on above: Performed By: #### T SH, CMP, LIPID, FT3 #### [facility] [address] [address] [address] Chana Ceballos Cholesterol in HDL [Mass/Vol] 38 mg/dL Critically low 40-60 [facility] Comment on above: Performed By: #### T SH, CMP, LIPID, FT3 #### [facility] [address] [address] [address] Chana Ceballos Cholesterol in LDL [Mass/Vol] 137.4 mg/dL Normal [facility] Comment on above: Performed By: #### T SH, CMP, LIPID, FT3 #### [facility] [address] [address] [address] Chana Ceballos Cholesterol.total/Ch olesterol in HDL [Mass ratio] 5.7 {ratio} Normal [facility] Comment on above: Performed By: #### T SH, CMP, LIPID, FT3 #### [facility] [address] [place] [address] Dr. Chana Ceballos HDL NORMAL > or = 60 mg/dl - LOW CARDIOVASCULAR RISK <40 mg/dl - HIGH CARDIOVASCULAR RISK Normal [facility] Comment on above: Performed By: #### T SH, CMP, LIPID, FT3 #### [facility] [address] [place] [address] Dr. Chana Ceballos LDL CALC NORMAL SEE BELOW Normal [facility] Comment on above: Result Comment: <100 mg/dl OPTIMAL 100 - 129 mg/dl NEAR OR ABOVE OPTIMAL 130 - 159 mg/dl BORDERLINE HIGH 160 - 189 mg/dl HIGH >190 mg/dl VERY HIGH Performed By: #### T SH, CMP, LIPID, FT3 #### [facility] [address] [address] [address] Chana Ceballos Triglyceride [Mass/Vol] 208 mg/dL Critically high <=150 [facility] Comment on above: Performed By: #### T SH, CMP, LIPID, FT3 #### [facility] [address] [address] [address] Chana Ceballos VLDL CALC 41.6 mg/dL Normal [facility] Comment on above: Performed By: #### T SH, CMP, LIPID, FT3 #### [facility] [address] [address] [address] Chana Ceballos PROF 14(COMP METB)on 022 Albumin [Mass/Vol] 4.2 g/dL Normal 3.4-5.[address] [facility] Comment on above: Performed By: #### T SH, CMP, LIPID, FT3 #### [facility] [address] [address] [address] Chana Ceballos Albumin/Globulin [Mass ratio] 1.2 {ratio} Normal [facility] Comment on above: Performed By: #### T SH, CMP, LIPID, FT3 #### [facility] [address] [place] [address] Dr. Chana Ceballos ALP [Catalytic activity/Vol] 61 U/L Normal 46-116 [facility] Comment on above: Performed By: #### T SH, CMP, LIPID, FT3 #### [facility] [address] [address] [address] Chana Ceballos ALT [Catalytic activity/Vol] 29 U/L Normal 14-59 [facility] Comment on above: Performed By: #### T SH, CMP, LIPID, FT3 #### [facility] [address] [address] [address] Chana Ceballos Anion gap [Moles/Vol] 14.3 mmol/L Normal [facility] Comment on above: Performed By: #### T SH, CMP, LIPID, FT3 #### [facility] [address] [address] [address] Chana Ceballos AST [Catalytic activity/Vol] 17 U/L Normal 15-37 [facility] Comment on above: Performed By: #### T SH, CMP, LIPID, FT3 #### [facility] [address] [address] [address] Chana Ceballos Bilirubin [Mass/Vol] 0.2 mg/dL Normal 0.2-1.0 [facility] Comment on above: Performed By: #### T SH, CMP, LIPID, FT3 #### [facility] [address] [place] [address] Dr. Chana Ceballos Calcium [Mass/Vol] 9.0 mg/dL Normal 8.5-10.[address] [facility] Comment on above: Performed By: #### T SH, CMP, LIPID, FT3 #### [facility] [address] [place] [address] Dr. Chana Ceballos Chloride [Moles/Vol] 103 mmol/L Normal 98-107 [facility] Comment on above: Performed By: #### T SH, CMP, LIPID, FT3 #### [facility] [address] [place] [address] Dr. Chana Ceballos CO2 [Moles/Vol] 25.1 mmol/L Normal 21.0-32.0 [facility] Comment on above: Performed By: #### T SH, CMP, LIPID, FT3 #### [facility] [address] [place] [address] Dr. Chana Ceballos Creatinine [Mass/Vol] 0.93 mg/dL Normal 0.55-1.02 [facility] Comment on above: Performed By: #### T SH, CMP, LIPID, FT3 #### [facility] [address] [place] [address] Dr. Chana Ceballos EGFR-AF LIBERIAN >60 Normal >=60 [facility] Comment on above: Performed By: #### T SH, CMP, LIPID, FT3 #### [facility] [address] [place] [address] Dr. Chana Ceballos EGFR-NON AF LIBERIAN >60 Normal >=60 [facility] Comment on above: Performed By: #### T SH, CMP, LIPID, FT3 #### [facility] [address] [place] [address] Dr. Chana Ceballos Globulin (S) [Mass/Vol] 3.4 g/dL Normal [facility] Comment on above: Performed By: #### T SH, CMP, LIPID, FT3 #### [facility] [address] [address] [address] Chana Ceballos Glucose [Mass/Vol] 198 mg/dL Critically high 74-106 [facility] Comment on above: Performed By: #### T SH, CMP, LIPID, FT3 #### [facility] [address] [place] [address] Dr. Chana Ceballos Potassium [Moles/Vol] 4.4 mmol/L Normal 3.5-5.1 [facility] Comment on above: Performed By: #### T SH, CMP, LIPID, FT3 #### [facility] [address] [place] [address] Dr. Chana Ceballos Protein [Mass/Vol] 7.6 g/dL Normal 6.4-8.[address] [facility] Comment on above: Performed By: #### T SH, CMP, LIPID, FT3 #### [facility] [address] [place] [address] Dr. Chana Ceballos Sodium [Moles/Vol] 138 mmol/L Normal 136-[address] [facility] Comment on above: Performed By: #### T SH, CMP, LIPID, FT3 #### [facility] [address] [place] [address] Dr. Chana Ceballos Urea nitrogen [Mass/Vol] 18.0 mg/dL Normal 7.0-18.0 [facility] Comment on above: Performed By: #### T SH, CMP, LIPID, FT3 #### [facility] [address] [place] [address] Dr. Chana Ceballos Urea nitrogen/Creatinine [Mass ratio] 19.4 mg/mg Normal [facility] Comment on above: Performed By: #### T SH, CMP, LIPID, FT3 #### [facility] [address] [place] [address] Dr. Chana Ceballos TSHon 10-05-2021 TSH 2.219 uIU/mL Normal 0.358-3.740 [facility] Comment on above: Performed By: #### T SH, CMP, LIPID, FT3 #### [facility] [address] [place] [address] Dr. Chana Ceballos Vital Signs Date Time Vital Sign Value Performing Clinician Facility 09-20-2024 10:07-0400 Body height 167.6 cm Adrien Sawyer DPM Work Phone: [facility] 09-20-2024 10:07-0400 Body mass index (BMI) [Ratio] 38.74 kg/m2 Adrien Sawyer DPM Work Phone: [facility] 09-20-2024 10:07-0400 Body weight 108.86 kg Adrienivy Jacques DPM Work Phone: [facility] 09-20-2024 10:07-0400 Respiratory rate 18 /min Adrien Jacques DPM Work Phone: [facility] 09-11-2024 11:33-0400 Body temperature 98.4 [degF] Dolly Hadley DDS Work Phone: [facility] 09-11-2024 11:33-0400 Diastolic blood pressure 100 mm[Hg] Dolly Kanani DDS Work Phone: [facility] 09-11-2024 11:33-0400 Systolic blood pressure 160 mm[Hg] Dolly Kanani DDS Work Phone: [facility] 07-24-2024 10:45-0400 Diastolic blood pressure 82 mm[Hg] Jaja Parry MD Work Phone: [facility] 07-24-2024 10:45-0400 Heart rate 75 /min Jaja Parry MD Work Phone: [facility] 07-24-2024 10:45-0400 Respiratory rate 16 /min Jaja Parry MD Work Phone: [facility] 07-24-2024 10:45-0400 SaO2% (BldA) [Mass fraction] 93 % Jaja Parry MD Work Phone: [facility] 07-24-2024 10:45-0400 Systolic blood pressure 123 mm[Hg] Jaja Parry MD Work Phone: [facility] 07-24-2024 10:12-0400 Inhaled oxygen flow rate 3 L/min Jaja Parry MD Work Phone: [facility] 07-24-2024 09:26-0400 Body height 167.64 cm Jaja Parry MD Work Phone: [facility] 07-24-2024 09:26-0400 Body weight 102.05 kg Jaja Parry MD Work Phone: [facility] 07-12-2024 10:100400 Body height 167.6 cm Adrien Jacques DPM Work Phone: [facility] 07-12-2024 10:10-0400 Body mass index (BMI) [Ratio] 38.74 kg/m2 Adrien Jacques DPM Work Phone: [facility] 07-12-2024 10:100400 Body weight 108.86 kg Adrien Jacques DPM Work Phone: [facility] 07-12-2024 10:10-0400 Respiratory rate 18 /min Adrien Jacques DPM Work Phone: [facility] 07-12-2023 11:25-0400 Diastolic blood pressure 88 mm[Hg] MD Jaja Parry Work Phone: [facility] 07-12-2023 11:25-0400 Heart rate 82 /min MD Jaja Parry Work Phone: [facility] 07-12-2023 11:25-0400 Respiratory rate 16 /min MD Jaja Parry Work Phone: [facility] 07-12-2023 11:25-0400 SaO2% (BldA) [Mass fraction] 99 % MD Jaja Parry Work Phone: [facility] 07-12-2023 11:25-0400 Systolic blood pressure 138 mm[Hg] MD Jaja Parry Work Phone: [facility] 05-28-2024 10:51-0400 Inhaled oxygen flow rate 3 L/min MD Jaja Parry Work Phone: [facility] 07-12-2023 09:56-0400 Body height 167.64 cm MD Jaja Parry Work Phone: [facility] 07-12-2023 09:56-0400 Body weight 108.86 kg MD Jaja Parry Work Phone: [facility] 06-17-2023 08:47-0400 Body height 167.64 cm [facility] 06-17-2023 08:47-0400 Body mass index (BMI) [Ratio] 38.4 kg/m2 [facility] 06-17-2023 08:47-0400 Body weight 108 kg [facility] 05-09-2023 08:58-0400 Body height 167.64 cm [facility] 05-09-2023 08:58-0400 Body mass index (BMI) [Ratio] 38.7 kg/m2 [facility] 05-09-2023 08:58-0400 Body weight 108.94 kg [facility] 07-28-2022 08:15-0400 Body height 167.64 cm [employer] Other [facility] [employer] Other 07-28-2022 08:15-0400 Body mass index (BMI) [Ratio] 38.73 kg/m2 [employer] Other [employer] Other 07-28-2022 08:15-0400 Body weight 108.86 kg [employer] Other [employer] Other 12-12-2021 13:05-0400 Body height 167.64 cm Liliya Fletcher Other [employer] Other 12-12-2021 13:05-0400 Body mass index (BMI) [Ratio] 35.51 kg/m2 Liliya Fletcher Other [facility] Other 12-12-2021 13:05-0400 Body temperature 97.9 [degF] Liliya Fletcher Other [facility] Other 12-12-2021 13:05-0400 Body weight 99.79 kg Liliya Fletcher Other [facility] Other 12-12-2021 13:05-0400 Diastolic blood pressure 74 mm[Hg] Liliya Fletcher Other [facility] Other 12-12-2021 13:05-0400 Respiratory rate 18 /min Liliya Fletcher Other [facility] Other 12-12-2021 13:05-0400 SaO2% (BldA) [Mass fraction] 99 % Liliya Fletcher Other [facility] Other 12-12-2021 13:05-0400 Systolic blood pressure 138 mm[Hg] Liliya Fletcher Other [facility] Other 2021 12:30-0400 Body height 167.64 cm Dorys Pughault Other [facility] Other 2021 12:30-0400 Body mass index (BMI) [Ratio] 36.31 kg/m2 Dorys Prudencio Other [facility] Other 2021 12:30-0400 Body temperature 97 [degF] Dorys Prudencio Other [facility] Other 2021 12:30-0400 Body weight 102.06 kg Dorys Prudencio Other [facility] [employer] Other Encounters Encounter Date Encounter Type Care [...] Clinic Start: 09-11-2024 ambulatory Dolly Hadley DDCm [facility] Start: 09-06-2024 End: 09-06-2024 ambulatory Jaja Parry MD Work Phone: [facility] Work Phone: Start: 09-06-2024 End: 09-06-2024 Departed Referred Jonathan العلي MD -[facility] Start: 09-05-2024 End: 09-05-2024 ambulatory Jaja Parry MD Work Phone: [facility] Work Phone: Start: 09-05-2024 End: 09-05-2024 Departed Referred Vielka Galeano MD -[facility] Start: 08-30-2024 End: 08-30-2024 ambulatory Jaja Parry MD Work Phone: [facility] Work Phone: Start: 08-30-2024 End: 08-30-2024 Patient encounter procedure Gregg Kapoor MD -[facility] Work Phone: Start: 08-27-2024 End: 08-27-2024 Encounter identifier Dolly Hadley DDS Work Phone: [facility] Start: 08-13-2024 End: 08-13-2024 ambulatory Jaja Parry MD Work Phone: [facility] Work Phone: Start: 08-13-2024 End: 08-13-2024 Patient encounter procedure Gregg Kapoor MD -[facility] Work Phone: Start: 07-24-2024 Non-patient / Non-visit Christal Parry MD Work Phone: [facility] Work Phone: Start: 07-24-2024 End: 07-24-2024 Admission to same day surgery center Jaja Parry MD Work Phone: [facility] Work Phone: Start: 07-24-2024 End: 07-24-2024 ambulatory Jaja Parry MD Work Phone: [facility] Work Phone: Start: 07-12-2024 End: 07-12-2024 Bamboo [...] polyneuropathy, without long-term current use of insulin ([facility]); Pain due to onychomycosis of toenails of both feet Start: 07-12-2024 End: 07-12-2024 ambulatory ADRIEN JACQUES Not Available Start: 07-11-2024 End: 07-11-2024 ambulatory [facility] Work Phone: Start: 07-11-2024 End: 07-11-2024 Patient encounter procedure [facility] Work Phone: Start: 10-13-2023 End: 10-13-2023 ambulatory MD Jaja Parry Work Phone: [facility] Work Phone: Start: 10-13-2023 End: 10-13-2023 Patient encounter procedure MD Jaja Parry Work Phone: [facility] Work Phone: Start: 08-01-2023 End: 08-01-2023 ambulatory MD Jaja Parry Work Phone: [facility] Work Phone: Start: 08-01-2023 End: 08-01-2023 Patient encounter procedure MD Jaja Parry Work Phone: [facility] Work Phone: Start: 07-12-2023 Non-patient / Non-visit MD Linnea Parry Work Phone: [facility] Work Phone: Start: 07-12-2023 End: 07-12-2023 Admission to same day surgery center MD Jaja Parry Work Phone: [facility] Work Phone: Start: 07-12-2023 End: 07-12-2023 ambulatory MD Jaja Parry Work Phone: [facility] Work Phone: Start: 06-30-2023 End: 06-30-2023 Patient encounter procedure MD Jaja Parry Work Phone: [facility] Work Phone: Start: 06-17-2023 End: 06-17-2023 ambulatory [facility] Work Phone: Start: 06-17-2023 End: 06-17-2023 Patient encounter procedure [facility] Work Phone: Start: 05-09-2023 End: 05-09-2023 ambulatory [facility] Work Phone: Start: 05-09-2023 End: 05-09-2023 Patient encounter procedure [facility] Work Phone: Start: 07-28-2022 End: 07-28-2022 ambulatory Hudson Gu Other [facility] Other Start: 07-28-2022 Office outpatient vi sit 25 minutes Hudson Gu [facility] Start: 06-23-2022 End: 06-24-[address] JAJA PARRY . Facility:[facility] Start: 06-14-2022 End: 06-14-2022 ambulatory Hudson Gu Other [facility] Other Start: 06-14-2022 Telephone encounter Hudson Gu G [facility] Start: 03-09-2022 End: 04-08-2022 ambulatory HUDSON GU Facility:[facility] Start: 02-22-2022 End: 02-23-2022 ambulatory LILIYA HUTTON Facility:[facility] Start: 12-12-2021 Office outpatient vi sit 15 minutes Liliya Fletcher [facility] Start: 12-12-2021 End: 12-12-2021 ambulatory MD Jaja Parry Work Phone: [facility] Other Start: 12-12-2021 End: 12-12-2021 Patient encounter procedure MD Jaja Parry Work Phone: [facility] Start: 2021 End: 2021 ambulatory Dorys Prudencio Other [facility] [employer] Other Start: 2021 Office outpatient ne w 20 minutes Dorys Flannery [facility] Start: 10-07-2021 Encounter for genera l adult medical examination without abnormal findings DR JAJA PARRY . [facility] Start: 10-05-2021 End: 10-06-[address] [...] (#1) [facility] Start: 09-24-2024 Susanne Clark [facility] Work Phone: Start: 09-20-2024 End: 09-20-2024 Patient encounter procedure [facility] Comment on above: Diabetes mellitus du e to underlying condition with diabetic polyneuropathy, without long-term current use of insulin (HCC) (Primary Dx); Pain due to onychomycosis of toenails of both feet; Venous insufficiency Start: 09-11-2024 Jebbit [facility] Work Phone: Start: 09-06-2024 Urine culture [facility] Start: 09-06-2024 Bacteria identified in Urine by Culture Urine Culture [facility] Start: 09-05-2024 Bacteria identified in Urine by Culture Urine Culture [facility] Start: 09-05-2024 Urine culture [facility] Start: 08-30-2024 X-ray of left knee, two views XR knee LT 2V [facility] Start: 08-30-2024 XR Knee - left 2 Views [facility] Start: 08-27-2024 EckertMadmagz [facility] Work Phone: Start: 07-24-2024 [facility] Start: 07-12-2024 End: 07-12-2024 Patient encounter procedure 07/12/2024 11:00 AM EDT Office Visit [facility] [address] [address] Adrien Jacques DPM [address] [address] Arrived [facility] Comment on above: Arrived Start: 10-13-2023 X-ray of left knee XR knee LT 2V [facility] Start: 10-13-2023 XR Knee - left 2 Views [facility] Start: 07-12-2023 [facility] Start: 2003 Screening for malign ant neoplasm of breast Mammogram [facility] Start: 10-10-1993 Screening for malign ant neoplasm of cervix [facility] Start: 10-10-1984 Screening for malign ant neoplasm of cervix Pap Smear [facility] Start: 1965 Screening for malign ant neoplasm of colon [facility] Patient Education Know your Meds Felter Non Diagnostic Block [facility] Work Phone: Patient referral [facility] Work Phone: Immunizations Immunization Date Immunization Notes Care Provider Fa cility 10-31-2023 influenza virus vacc ine, unspecified formulation Adrien Jacques DPMargie Work Phone: [facility] Healthcare Payers Date Payer Category Payer Medicaid [facility] [id number] 2024 Medicaid [id number] 2024 Self-pay [id number] 2024 Private Health Insurance [facility] [id number] 2024 Unknown [id number] 2023 Self-pay 2012 Unknown [id number] 1965 Unknown [id number] [id number]. 593 1963 Unknown [id number] [id number]. 593 1963 Unknown [id number] 2.840.1.465487.3.579.2. 593 1963 Unknown [id number] [id number]. 593 1963 Unknown [id number] 2.840.1.891806.3.579.2. 716 1963 Unknown [id number] 2.840.1.659001.3.579.2. 1259 1963 Unknown [id number] 2.840.1.384331.3.579.2. 1259 1959 Blue Cross Blue Shield [id number] Unknown [employer]/BS [id number] Unknown [id number] [id number]. 531 Unknown [id number] [id number]. 531 Unknown [id number] [id number]. 531 Unknown [id number] [id number]. 531 Unknown [id number]. 531 Social History Date Type Detail Facility Start: 01-17-2023 End: 07-12-2024 Sex Assigned At [facility] Other Start: 1965 Sex Assigned At Female [facility] Start: 01-17-2023 Tobacco smoking status MOIS Occasional tobacco smoker [facility] History of tobacco use Cigarette Smoker [facility] Start: 01-17-2023 End: 07-12-2024 History of Social function [facility] Start: 01-17-2023 Tobacco Comment 5 or less cigarettes/day [facility] Start: 1965 Sex assigned at Not on file [facility] Start: 07-11-2024 End: 07-24-2024 Tobacco smoking status NHIS Ex-smoker (finding) [facility] Start: 07-11-2024 End: 07-24-2024 Sex Female (finding) [facility] Start: 08-27-2024 End: 09-11-2024 Tobacco smoking status [facility] Unknown if ever smoked [facility] Start: 08-27-2024 Alcohol intake Alcohol Use Details [facility] Sexual Orientation Straight or heterosexual [facility] Work Phone: Start: 01-26-2018 Sexual Orientation Bisexual [facility] Goals Date Patient Goal Desired Activity /State [...] and negative PT pedal pulses NEURO: 5.07 [place] monofilament test intact to digits and [...] Adrien Jacques DPM documented in this encounter [facility] 09-11-2024 History of Presen t illness Narrative Encounter Date DL DL [facility] Work Phone: 1(724) 236-160107-14-2025 History of Present illness Narrative* Encounter Date Complaint History Of Prese nt Illness ext ext [facility] Work Phone: 1(735) 262-772206-10-2025 [place] [id number] Pain Management Procedure Note Signed Patient: Susanne Clark MR#: [id number] : 1965 Acct:[id number] Age/Sex: 58 / F Adm Date: 5 Loc: Room: Type: [facility] Attending Dr: Gregg Nassar MD Copies [...] MD 07/24/24 1008 Signed By: 07/24/24 1022 [facility]05-29-2025 History of Present illness Narrative * Adrien [...] and negative PT pedal pulses NEURO: 5.07 K[place] [place] monofilament test intact to digits and forefoot bilaterally 125Hz tuning fork diminished to 1st MPJ bilaterally ORTHO: Positive pain on palpation to toenails of the left 1,2,3,4,5 toes and right 1,2,3,4,5 toes ASSESSMENT 1. Venous insufficiency 2. Diabetes mellitus due to underlying condition with diabetic polyneuropathy, without long-term current use of insulin ([facility]) 3. Pain due to onychomycosis of [...] edema. Discussed condition in detail. Recommendation for [id number]-[id number] compression stockings at this time and may consider prescription stockings in the future. Adrien Jacques DPM [id number] Evaluation note* Diagnosis Onset Date Resolution Status Admit Date Chronic pain acute July 11 9:53am Fibromyalgia acute July 11 9:53am Osteoarthritis of left knee acute July 11, 2024 9:53am [facility] Work Phone: 1(441) 914-842205-28-2025 Evaluation note* Diagnosis Onset Date Resolution Status Admit Date Chronic pain acute July 11 9:53am Fibromyalgia acute July 11 9:53am Osteoarthritis of left knee acute July 11, 2024 9:53am Chronic pain acute August 13, 2 025 7:58am Fibromyalgia acute August 13, 2 025 7:58am Osteoarthritis of left knee acute August 13, 2024 7:58am [facility] Work Phone: 1(222) 636-579905-28-2025 Evaluation note* Diagnosis Onset Date Resolution Status [...] left knee acute August 30, 2024 9:02am [facility] Work Phone: 1(416) 400-109405-28-2024 Procedure [facility]03-25-2024 Evaluation note* Author Mare Ramirez [facility] Authored May 09, 2023 9:1 6am We performed a 4/1cc Marcain e / Kenalog cortisone injection into the knee joint under sterile technique. Patient tolerated the injection well without adverse reaction. Patient can follow up as needed. Note scribed by ESEQUIEL Valle, reviewed and amended by myself Hudson Gu D.O. [facility] Work Phone: 1([phone]) 607-940506-14-2023 Evaluation note* Encounter Date Diagnosis Assessment Notes [...] tolerated the injection well without adverse reaction. [facility] Other 05-01-2023 Evaluation note* Encounter Date Diagnosis Assessment Notes Treatment Notes Treatment Clinical Notes June, Acute meniscal tear of left knee, initial encounter (ICD-10 - S83.207A) [facility] Other 10-29-2022 Evaluation note* Encounter Date Diagnosis [...] Nov, Other Contusion mater ial was printed [facility] Other 08-28-2022 Evaluation note* Encounter Date Diagnosis [...] COVID POSITIVE education handout discharge instructions. given. [facility] Other Consult note* Clinical Note Date No Information [facility] Work Phone: Discharge summary* Clinical Note Date No Information [facility] Work Phone: Evaluation noteNo assessment information available [facility] Work Phone: Evaluation note* Author Mare Ramirez [facility] Authored May 09, 2023 9:1 6am We performed a 4/1cc Marcain e / Kenalog cortisone injection into the knee joint under sterile technique. Patient tolerated the injection well without adverse reaction. Patient can follow up as needed. Note scribed by ESEQUIEL Valle, reviewed and amended by myself Hudson Gu D.O. [facility] Work Phone: Evaluation note* Diagnosis Onset Date Resolution Status Chronic pain acute Knee pain acute Osteoarthritis of left knee acute Chronic pain acute Contusion of left knee acute Knee pain acute Osteoarthritis of left knee acute [facility] Work Phone: Evaluation note* Diagnosis Venous insufficiency- Primary Unspecified venous (peripheral) insufficiency Diabetes mellitus due to underlying condition with diabetic polyneuropathy, without long-term current use of insulin ([facility]) Pain due to onychomycosis of toenails of both feet documented in this encounter [facility] HealthcareEvaluation note* Diagnosis Onset Date Resolution Status Admit Date Chronic pain acute July 11 9:53am Fibromyalgia acute July 11 9:53am Osteoarthritis of left knee acute July 11, 2024 9:53am [facility] Work Phone: Evaluation note* Type Assessment Date No Information [facility] Work Phone: Evaluation note* Diagnosis Diabetes mellitus due to underlying condition with diabetic polyneuropathy, without long-term current use of insulin ([facility])- Primary Pain due to onychomycosis of toenails of both feet Venous insufficiency Unspecified venous (peripheral) insufficiency [facility] Clinical Note Date No Information [facility] Work Phone: History general Narrative - Reported* Type Description Date Medical History diabetes Surgical History c-sections - 2 Surgical History oophorectomy Surgical History hysterectomy [facility] [employer] Other History general Narrative - Reported* Type Description Date Medical History diabetes Medical History high cholesterol Surgical History c-sections - 2 Surgical History oophorectomy Surgical History hysterectomy [facility] [employer] Other History of Past illness Narrative* Condition Effective Dates (start - stop) O utcome No Information [facility] Work Phone: Instructions* Date Instruction Additional Infor mation No Information [facility] Work Phone: Progress note* Clinical Note Date No Information [facility] Work Phone: Reason for referral (narrative)* Reason For Referral No Information [facility] Work Phone: Review of systems Narrative - Reported* System Pos/Neg Findings No Information [facility] Work Phone: Chief Complaint and Reason for [...] Provider Active Sta rt: October 13, 2023 [employer] Relationship Specialty Start Date End Date Jaja Parry MD [address] [place] [address] PCP - General Family Medicine 02/02/23 [employer] Relationship Specialty Start Date End Date Jaja Parry MD [address] [place] [address] PCP - General Family Medicine 02/02/23 Team [...] (start - stop) Status Members No Information [employer] Relationship Specialty Start Date End Date Jaja Parry MD [address] [place] [address] PCP - General Family Medicine 02/02/23 [employer]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 DATE CREATED AUTHOR AUTHOR'S ORGANIZ ATION 09/22/2024 [facility] EPIC FOR RECORDS PERTAINING [...] BE BASED ON THE PRIMARY CLINICAL RECORDS. [facility] [employer] [facility]. provides no warranty or guarantee of the accuracy or completeness of information in this document.
--- NOTE | 2024-10-22 21:11 | PC.NURSE ---
patient states when the pain gets bad sometimes I wish I was .But have no intentions of hurting myself. When God takes me it is my time.
[2024-10-22 21:19] LABS: Lactate/Lactic Acid 2.6 mmol/L (0.4-2.0)
[2024-10-22] MEDS: INSULIN GLARGINE 300 UNIT/3 ML INSULN.PEN 20 UNIT SQ (23:24)
[2024-10-22] MEDS: ENOXAPARIN SODIUM 40 MG/0.4 ML SYRINGE SUBQ (23:25)
[2024-10-22] MEDS: 0.9 % SODIUM CHLORIDE 1,000 ML 150 ML IV (23:25)
[2024-10-22] MEDS: LEVOFLOXACIN 500 MG TABLET PO (23:25)
[2024-10-22] MEDS: METOPROLOL TARTRATE 50 MG TABLET PO (23:25)
[2024-10-23] VITALS (7 sets, daily range): BP systolic 104–158; BP diastolic 65–94; PULSE 71–80; TEMP 36.6–36.9; O2SAT 90–96
[2024-10-23 06:26] LABS: Hematocrit 37.9 % (36.0-48.0); Hemoglobin 13.1 g/dL (12.0-16.0); Immature Granulocytes Abs Auto 0.01 10^3/uL (0.00-0.03); Immature Granulocytes Pct Auto 0.2 % (0.0-0.5); Lymphocytes Absolute Auto 1.7 10^3/uL (1.2-3.8); Mean Corpuscular HGB Conc 34.6 g/dL (29.9-35.2); Mean Corpuscular Hemoglobin 30.3 pg (26.7-34.0); Mean Corpuscular Volume 87.7 fL (81.0-99.0); Platelet Count 218 10^3/uL (150-450); Red Blood Count 4.32 10^6/uL (4.20-5.40); White Blood Count 5.6 10^3/uL (4.0-11.0)
[2024-10-23 06:38] LABS: Ammonia 27 umol/L (11-32)
[2024-10-23 06:43] LABS: Alanine Aminotransferase 31 U/L (14-59); Albumin Globulin Ratio 1.0; Albumin Level 3.5 g/dL (3.4-5.0); Alkaline Phosphatase 84 U/L (46-116); Anion Gap 16.8; Aspartate Amino Transferase 18 U/L (15-37); Blood Urea Nitrogen 10.0 mg/dL (7.0-18.0); Calcium 8.5 mg/dL (8.5-10.1); Carbon Dioxide 23.2 mmol/L (21.0-32.0); Chloride 103 mmol/L (98-107); Estimated GFR (African America >60 (>=60 mL/min/1.73m^2); Estimated GFR (Non-African Ame >60 (>=60 mL/min/1.73m^2); Globulin 3.6 g/dL; Glucose 274 mg/dL (74-106); Magnesium 1.6 mg/dL (1.8-2.4); Potassium 4.0 mmol/L (3.5-5.1); Sodium 139 mmol/L (136-145); Total Protein 7.1 g/dL (6.4-8.2)
[2024-10-23 06:49] LABS: Lactate/Lactic Acid 2.3 mmol/L (0.4-2.0)
[2024-10-23] MEDS: INSULIN ASPART 300 UNIT/3 ML PEN SUBQ ×4 (08:27→21:19)
[2024-10-23] MEDS: INSULIN GLARGINE 300 UNIT/3 ML INSULN.PEN 25 UNIT SQ (08:29)
[2024-10-23] MEDS: LEVOFLOXACIN 500 MG TABLET PO (08:31)
[2024-10-23] MEDS: PANTOPRAZOLE SODIUM 40 MG TABLET.DR PO (08:31)
[2024-10-23] MEDS: ENOXAPARIN SODIUM 40 MG/0.4 ML SYRINGE SUBQ (08:31)
[2024-10-23] MEDS: MAGNESIUM OXIDE 400 MG TABLET PO (08:32)
[2024-10-23] MEDS: MAGNESIUM SULFATE IN WATER 2 GM/50 ML PREMIX IV (08:38)
--- NOTE | 2024-10-23 08:40 | CM.NOTE ---
Rounds made with Dr. Estrella, pt will not discharge today. Continue IV fluids and monitoring. Pt will continue in OBS status, no discharge today.
[2024-10-23] MEDS: METOPROLOL TARTRATE 50 MG TABLET PO ×2 (09:31→21:18)
[2024-10-23 10:09] LABS: Lactate/Lactic Acid 2.6 mmol/L (0.4-2.0)
--- NOTE | 2024-10-23 11:27 | XR_ITS ---
[address] [address] Patient Name: RJ PINZON MRN: [id number] date: 1965 Sex: F Assigned Patient Location: [place] Current Patient Location: [place] Accession/Order Number: [id number] Exam Date: 10/23/2024 11:50 Report Date: 10/23/2024 12:22 At the request of: JOSE RAUL PLATT MD Procedure: XR chest 1V PORTABLE AP ERECT CHEST 0140 hours CLINICAL HISTORY: Night sweats COMPARISON: None There is continued slight elevation right hemidiaphragm. The heart is within normal limits. There is no vascular congestion. The lungs, as visualized, are clear. There is no effusion or pneumothorax. The osseous structures are intact. Endplate spurring is visualized. XR/XR chest 1V IMPRESSION: NO ACUTE FINDINGS Impression dictated by: Mitali Birmingham M.D. 10/23/2024 12:22 PM Dictation [facility] Electronically authenticated by: [id number] Date: 10/23/2024 12:22
--- NOTE | 2024-10-23 11:43 | PM.HP ---
HPI H&P: HPI History of Present Illness Chief complaint: ABNORMAL LABS (Lactate) Narrative: Mrs. Clark is a 59-year-old female who was sent to the emergency room after an outpatient blood test showed elevated lactic acid. Patient denies any chest pain or abdominal pain. She denies any skin rash or infection. She denies any change in mental status, confusion or headaches. Patient reported having sweats over the last several months. Patient reported having 30 pound weight loss over the last several months. No hematemesis or melena. No dysuria or hematuria. Opioid HPI Opioid Management Most Recent Pain and Opioid Data: Last Pain Scale 0 Today, 07:54 Last Pain Assessment 10/22/24, 21:00 Last MAR Pain Assessment 10/22/24, 19:12 Last ORT Total Score 0 10/22/24, 20:52 Last ORT Risk Category Low Risk 10/22/24, 20:52 PFS PFS Medical History (Updated 10/23/24 @ 11:45 by Ramírez Estrella MD) Abdominal pain ?R10.9 - Unspecified abdominal pain (ICD-10) Surgical History (Updated 10/22/24 @ 22:12 by Dee Dee Hunt, VINCENT) H/O hysterectomy with oophorectomy H/O oophorectomy H/O: hysterectomy ?Z90.710 - Acquired absence of both cervix and uterus (ICD-10) Family History (Updated 10/22/24 @ 21:00 by Dee Dee Hunt, VINCENT) Father Family history of CHF (congestive heart failure) Heart disease Family history of cancer Family history of diabetes mellitus Family history of hypertension Kidney disease Mother Family history of cancer Family history of hypertension Sister Family history of stroke Social History (Updated 10/22/24 @ 21:03 by Dee Dee Hunt, RN) Within the past year, how often did you have a drink containing alcohol: monthly or less Within the past year, how many standard drinks containing alcohol did you have on a typical day: 1 or 2 Within the past year, how often did you have six or more drinks on one occasion: never Total score: 0 Score interpretation: A score less than 3 is consistent with normal alcohol consumption. Smoking status: Former smoker Non-prescribed substance use: denies use Previous occupational history: disability Highest level of school completed/degree received: some college, no degree Are you now , , , , never or living with a partner: In a typical week, how many times do you talk on the telephone with family, friends, or neighbors: 3 or more times per week How often do you get together with friends or relatives: 3 or more times per week Little interest or pleasure in doing things: not at all Feeling down, depressed, or hopeless: not at all Do you think of yourself as: straight/heterosexual Gender Identity: female Meds Home Medications and Allergies Home Medications ?Medication ?Instructions ?Recorded ?Confirmed ?Type simvastatin 20 mg tablet 20 mg PO DAILY 01/13/23 10/22/24 History insulin glargine 100 unit/mL (3 40 unit subcut DAILY 03/21/24 10/22/24 History mL) subcutaneous pen (Basaglar KwikPen U-100 Insulin) metoprolol tartrate 50 mg tablet 50 mg PO Q12H 03/22/24 10/22/24 History magnesium oxide 400 mg PO DAILY #5 caps 09/05/24 10/22/24 Rx ondansetron 4 mg disintegrating 4 mg PO Q8H PRN nausea and 09/05/24 10/22/24 Rx tablet vomiting 48 hours #10 tabs cyclobenzaprine 10 mg tablet 10 mg PO TID 10/22/24 10/22/24 History duloxetine 60 mg capsule,delayed 60 mg PO DAILY 10/22/24 10/22/24 History release naltrexone 50 mg tablet 50 mg PO DAILY 10/22/24 10/22/24 History pantoprazole 40 mg tablet,delayed 40 mg PO DAILY 10/22/24 10/22/24 History release Allergies Allergy/AdvReac Type Severity Reaction Status Date / Time cephalexin (From ADENTS HTI) Allergy Intermediate Unknown Verified 10/22/24 14:42 lisinopril Allergy Intermediate Unknown Verified 10/22/24 14:42 tramadol Allergy Unknown Verified 10/22/24 14:42 Exam Narrative Exam Narrative: [pt is awake and alert. oriented to place, time and person HEENT: [place] conjunctiva and NL buccal mucosa Neck: Supple, no tenderness Endocrine: No Thyromegaly. Vascular: No JVD or carotid bruit. Lymphatic: No cervical lymphadenopathy. Chest: CTA no DTP. Heart RRR, no extra sound or murmur. Abd: Soft, no tenderness, no rebound and no rigidity. Increase abd girth therefore clinically I could not exclude the possibility of intra abd mass or organomegaly. LE: No cyanosis or clubbing, no varices or edema. Neuro: A A O. Nl speech, comprehension and attention. Nl and symetrical motor and tone examination through out. []] Constitutional Vital Signs, click to edit/add: Last Vital Signs Temp 97.9 F 10/23/24 11:03 Pulse 77 10/23/24 11:03 Resp 16 10/23/24 11:03 BP 158/80 H 10/23/24 11:03 Pulse Ox 92 L 10/23/24 11:03 O2 Del Method Room Air 10/23/24 11:03 Results Labs Labs: Short CBC 10/23/24 Range/Units 06:10 WBC 5.6 (4.0-11.0) 10^3/uL Hgb 13.1 (12.0-16.0) g/dL Hct 37.9 (36.0-48.0) % Plt Count 218 (150-450) 10^3/uL BMP 10/23/24 06:10 Sodium 139 Potassium 4.0 Chloride 103 Carbon Dioxide 23.2 BUN 10.0 Creatinine 0.78 Glucose 274 H Calcium 8.5 Liver Function 10/23/24 Range/Units 06:10 Total Bilirubin 0.3 (0.2-1.0) mg/dL AST 18 (15-37) U/L ALT 31 (14-59) U/L Alkaline Phosphatase 84 (46-116) U/L Albumin 3.5 (3.4-5.0) g/dL Assessment and Plan Assessment and Plan (1) Lactic acidosis: (2) Weight loss: (3) Hypomagnesemia: (4) Steatohepatitis: (5) HTN (hypertension): Plan Elevated lactic acid No clinical evidence of infection. No respiratory symptoms. No abdominal pain. No fever or chills to suggest active infection. I requested the CRP which came back below 0. That essentially exclude the possibility of underlying active infection. Broad differential diagnosis as the cause and/or etiology of elevated lactic acid No evidence of sepsis No evidence of DKA No evidence of dehydration or volume loss No evidence of hypotension or organ hypoperfusion. Could be related to her liver steatohepatitis with impaired ability to process lactic acid. Patient is not on medication that would cause elevation of the lactic acid such as metformin or Zyvox or beta agonist. No kidney failure could cause slight elevation of lactic acid elevation. Requested to check B12 and thiamine level that may be contributing to elevated lactic acid Patient also may have gut bacterial overgrowth causing D lactic acidosis specifically given her diabetes and increased risk of gastric dysmotility I started patient on Xifaxin as a trial for intestinal bacterial overgrowth and repeat lactic acid in 1 week. Blood cultures were completed in the outpatient setting. Thus far blood cultures pending. However given the negative CRP I doubt that patient has active infection Less likely other rare causes of elevation of the lactic acid such as glycogen storage disease, pyruvate carbo hydroxylase deficiency or methylmalonic acid urea Requested a blood gas to exclude the possibility of a carbon monoxide toxicity that could potentially cause elevation of lactic acid. No alcohol consumption or any other toxin ingestion Underlying malignancy could potentially cause elevation of lactic acid. I recommend the patient to undergo age-appropriate cancer screening which may include but not limited to colonoscopy, EGD, pelvic exam and others to be done in the outpatient setting (patient had recent mammogram which came back unremarkable and also had previous hysterectomy. ) Weight loss, elevated lactic acid Suspect intestinal bacterial over growth causing patient to have malabsorption leading to weight loss. Trial of Xifaxan and repeat lactic acid in 1 week. Additional weight loss investigation may be needed including screening for underlying malignancy as listed above to be handled in the outpatient setting. Mild leukocytosis in the setting of weight loss, sweats No history of TB exposure. 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 No travel to [place] or [facility] No significant WBC differentiation to suspect smoldering lymphoma. Cannot exclude the possibility of myelo proliferative disease. Recommend continuation to monitor white count and differential. Refer to hematology if patient continues to have mild case of leukocytosis Diabetes Continue long-acting insulin as well as sliding scale Chronic medical conditions not listed above, incidental findings seen on labs and imaging. These would need to be addressed. Could be addressed when time and condition are appropriate. Could be addressed in the outpatient setting by PCP collaboration with other needed outpatient providers.
[2024-10-23 12:01] LABS: ABG PCO2 32.5 mmHg (35.0-45.0); HCO3 ABG 22.4 mmol/L (22.0-26.0); PO2 ABG 99.9 mmHg (80.0-100.0)
[2024-10-23 12:02] LABS: Allen Test POSITIVE (POSITIVE); Carboxyhemoglobin 1.1 % (1.5-4.9); Methemoglobin ABG <1.0 % (1.1-1.9); Oxygen Saturation ABG 99.0 %
[2024-10-23 12:03] LABS: O2 Mode ROOM AIR; Puncture Site R RAD
[2024-10-23] MEDS: RIFAXIMIN 550 MG TABLET PO ×2 (14:19→21:18)
[2024-10-23] MEDS: ACETAMINOPHEN 325 MG TABLET 650 MG PO (20:32)
[2024-10-23] MEDS: ATORVASTATIN CALCIUM 10 MG TABLET PO (21:18)
[2024-10-24 03:21] VITALS: BP 117/75; PULSE 76; TEMP 36.7; O2SAT 97
[2024-10-24] MEDS: RIFAXIMIN 550 MG TABLET PO (05:29)
[2024-10-24 06:15] LABS: Lactate/Lactic Acid 0.6 mmol/L (0.4-2.0)
[2024-10-24 07:28] VITALS: BP 125/77; PULSE 84; TEMP 36.4; O2SAT 95
--- NOTE | 2024-10-24 08:00 | CM.NOTE ---
Rounds made with Dr. Estrella, plan of care discussed with Dr. Estrella. Pt will discharge to home today and f/u with Dr. Parry. Pt denies any night sweats last night.
[2024-10-24] MEDS: INSULIN ASPART 300 UNIT/3 ML PEN SUBQ (08:24)
[2024-10-24] MEDS: INSULIN GLARGINE 300 UNIT/3 ML INSULN.PEN 25 UNIT SQ (08:25)
--- NOTE | 2024-10-24 08:36 | P.DS_ITS ---
DS: Providers Provider Date of admission: 10/22/24 20:45 Primary care physician: Florencio Parry MD Consults: 10/22/24 Consult to Dietitian Routine Reason for consultation: weight loss Has provider been notified: No DS: Diagnosis Discharge Diagnosis (1) Lactic acidosis: (2) Weight loss: (3) Hypomagnesemia: (4) Steatohepatitis: (5) HTN (hypertension): Plan As listed above, below and others that are not listed DS: Summary Hospital Course Hospital Course: Mrs. Clark is a 59-year-old female who was sent to the emergency room for an admission after an outpatient blood work showed elevated lactic acid and mild leukocytosis Elevated lactic acid No clinical evidence of infection. No respiratory symptoms. No abdominal pain. No fever or chills to suggest active infection. I requested the CRP which came back below 0.5 That essentially exclude the possibility of underlying active infection. Broad differential diagnosis as the cause and/or etiology of elevated lactic acid No evidence of sepsis No evidence of DKA No evidence of dehydration or volume loss No evidence of hypotension or organ hypoperfusion. Could be related to her liver steatohepatitis with impaired ability to process lactic acid. Patient is not on medication that would cause elevation of the lactic acid such as metformin or Zyvox or beta agonist. No kidney failure could cause slight elevation of lactic acid elevation. Requested to check B12 and thiamine level that may be contributing to elevated lactic acid. These are still pending. Patient also may have gut bacterial overgrowth causing D lactic acidosis specifically given her diabetes and increased risk of gastric dysmotility I started patient on Xifaxin as a trial for intestinal bacterial overgrowth. Repeat lactic acid is down to 0.6 Blood cultures were completed in the outpatient setting. Thus far blood cultures pending. However given the negative CRP I doubt that patient has active infection Less likely other rare causes of elevation of the lactic acid such as glycogen storage disease, pyruvate carbo hydroxylase deficiency or methylmalonic acid urea Requested a blood gas to exclude the possibility of a carbon monoxide toxicity that could potentially cause elevation of lactic acid. Blood gas does not show any carbon monoxide toxicity or elevated level No alcohol consumption or any other toxin ingestion Underlying malignancy could potentially cause elevation of lactic acid. I recommend the patient to undergo age-appropriate cancer screening which may include but not limited to colonoscopy, EGD, pelvic exam and others to be done in the outpatient setting (patient had recent mammogram which came back unremarkable and also had previous hysterectomy. ) Patient is feeling much better today. Patient will be discharged home on trial of probiotic and Xifaxan 500 mg twice a day to see if her lactic acid will continue to stay low and to see if her sweat, weight loss and abdominal gas improved. If her symptoms improve I would recommend extension of her treatment course beyond 15 days to be addressed by PCP Weight loss, elevated lactic acid, abdominal cramps, abdominal gas. Suspect intestinal bacterial over growth causing patient to have malabsorption leading to weight loss. Trial of Xifaxan. Lactic acid is down. I would recommend 15 days course of Xifaxan and a probiotic to see if her symptoms would destabilize. Consider extension of this course to be handled by PCP in the outpatient setting. Additional weight loss investigation may be needed including screening for underlying malignancy as listed above to be handled in the outpatient setting. Mild leukocytosis in the setting of weight loss, sweats No history of TB exposure. Patient never worked in hospital [facility]. No travel to [facility] or [facility] No significant WBC differentiation to suspect smoldering lymphoma. Cannot exclude the possibility of myelo proliferative disease. However her white count is back to normal. Recommend continuation to monitor white count and differential in the outpatient setting. Refer to hematology if patient continues to have mild case of leukocytosis Diabetes Continue long-acting insulin as well as sliding scale Chronic medical conditions not listed above, incidental findings seen on labs and imaging. These would need to be addressed. Could be addressed when time and condition are appropriate. Could be addressed in the outpatient setting by PCP collaboration with other needed outpatient providers. Patient has multiple medical issues as listed above and others that are not listed. All appear to be stable. Patient is feeling great. No acute symptoms over the last 48 hours. Lactic acid is down below normal range. No clinical evidence of infection. Patient might have responded already to Xifaxan and t reating potential intestinal bacterial overgrowth. I do not have any clear or strong clinical justification to extend inpatient hospitalization. Patient however will require close and frequent monitoring as well as additional work- up, investigation and therapeutic intervention that could take place from this point on post discharge. That is to prevent relapse, decompensation, rehospitalization and other medical implications. I instructed patient to ask her primary care doctor to obtain [facility] record entirely to address abnormalities seen on labs and imaging that I have and have not addressed during this hospitalization, follow-up on pending blood work, imaging and pathology is if available and to follow-up on needed medical care in the outpatient setting. Time Spent with Patient Time attestation: Total time spent providing and/or coordinating discharge services: Exam Constitutional Vital Signs, click to edit/add: Last Vital Signs Temp 97.6 F 10/24/24 07:28 Pulse 84 10/24/24 07:28 Resp 18 10/24/24 07:28 BP 125/77 10/24/24 07:28 Pulse Ox 95 10/24/24 07:28 O2 Del Method Room Air 10/24/24 07:28 DS: Data Data Completed and Pending Labs on day of discharge: Labs from last 24 hours 10/24/24 10/24/24 10/23/24 07:34 05:27 20:48 Puncture Site ABG pH ABG pCO2 ABG pO2 ABG HCO3 ABG O2 Saturation ABG Base Excess ABG Methemoglobin Saurav Test Carboxyhemoglobin Lactate 0.6 POC Glucose 291 H 157 H 10/23/24 10/23/24 10/23/24 17:02 11:53 10:16 Puncture Site R rad ABG pH 7.447 ABG pCO2 32.5 L ABG pO2 99.9 ABG HCO3 22.4 ABG O2 Saturation 99.0 ABG Base Excess -1.6 ABG Methemoglobin <1.0 L Saurav Test Positive Carboxyhemoglobin 1.1 L Lactate POC Glucose 164 H 327 H 10/23/24 09:28 Puncture Site ABG pH ABG pCO2 ABG pO2 ABG HCO3 ABG O2 Saturation ABG Base Excess ABG Methemoglobin Saurav Test Carboxyhemoglobin Lactate 2.6 H* POC Glucose Discharge Plan Discharge Disposition: Home Health Service Discharge Medications: New Xifaxan 550 mg Tablet 550 mg PO BID Qty: 30 0RF Probiotic 3 billion cell capsule 3,000 mmu cells PO DAILY Qty: 30 0RF Rx Instructions: administer with a meal Continued simvastatin 20 mg tablet 20 mg PO DAILY insulin glargine [Basaglar KwikPen U-100 Insulin] 100 unit/mL (3 mL) insulin pen 40 unit subcut DAILY metoprolol tartrate 50 mg tablet 50 mg PO Q12H ondansetron 4 mg tablet,disintegrating 4 mg PO Q8H PRN (Reason: nausea and vomiting) 2 Days Qty: 10 0RF magnesium oxide 400 mg magnesium capsule 400 mg PO DAILY Qty: 5 0RF cyclobenzaprine 10 mg tablet 10 mg PO TID naltrexone 50 mg tablet 50 mg PO DAILY pantoprazole 40 mg tablet,delayed release (DR/EC) 40 mg PO DAILY duloxetine 60 mg capsule,delayed release(DR/EC) 60 mg PO DAILY Print Language: Turkish Activity Restrictions/Additional Instructions: I may not have addressed or treated all of your medical illnesses or the abnormal blood work or imaging studies during this hospitalization. Please ask your primary care provider to obtain [facility] records entirely to follow up on all of the abnormal physical, laboratory, and imaging findings that I have not addressed. Please return back to the emergency room or seek medical attention if your symptoms worsen or return. Discharging you from [facility] does not mean that your medical care ends here and now. You may still need additional monitoring, work up, investigation, and treatment plan to be handled from this point on by out patient providers including your primary care provider and specialists. For any medication question, please contact your retail pharmacist or your primary care provider. Thank you. Forms: Portal Instructions
[2024-10-24] MEDS: ENOXAPARIN SODIUM 40 MG/0.4 ML SYRINGE SUBQ (09:45)
[2024-10-24] MEDS: SENNOSIDES/DOCUSATE SODIUM 1 TAB TABLET PO (09:45)
[2024-10-24] MEDS: PANTOPRAZOLE SODIUM 40 MG TABLET.DR PO (09:46)
[2024-10-24] MEDS: METOPROLOL TARTRATE 50 MG TABLET PO (09:46)
[2024-10-24] MEDS: MAGNESIUM OXIDE 400 MG TABLET PO (09:46)
[2024-10-24] MEDS: LEVOFLOXACIN 500 MG TABLET PO (09:46)
[2024-10-25 11:09] LABS: Vitamin B12 749 pg/mL (232-1245)
--- NOTE | 2024-10-25 13:44 | CM.DCFOLLOWU ---
Person spoke with:patient How are you feeling? still having hot flashes, having more testing done How is your pain?none Did you understand your discharge instructions?yes Do you have any questions about your discharge instructions?no Were you given any prescriptions at discharge?yes Were you able to get your prescriptions filled? was able to get 1 filled, the other needed prior auth from insurance, so pharmacy is contacting PCP office Do you understand how to take your medications as ordered?yes Do you have any questions about your follow up appointment and do you plan to keep your follow up appointment? no questions, follow up reviewed Is there anything else that you would like to discuss?no Questions/Comments/Concerns/Other:none
[2024-10-30 06:07] LABS: Vitamin B1 (Thiamine), Blood 155.1 nmol/L (66.5-200.0)
== END 2024-10-24 11:36 | disposition home or self-care (01) ==
LOC: ER 14:31 → MS 20:50
PROVIDERS: Admitting Provider Internal Medicine; Emergency Provider Emergency Medicine; PCP Family Medicine; Visit Provider Internal Medicine
DX: E87.20 Acidosis, unspecified (principal); N39.0 Urinary tract infection, site not specified; R61 Generalized hyperhidrosis; R25.1 Tremor, unspecified; I10 Essential (primary) hypertension; E78.5 Hyperlipidemia, unspecified; D64.9 Anemia, unspecified; T14.8XXA Other injury of unspecified body region, initial encounter; R53.83 Other fatigue; E55.9 Vitamin D deficiency, unspecified; R63.4 Abnormal weight loss; E83.42 Hypomagnesemia; K75.81 Nonalcoholic steatohepatitis (NASH); Z87.891 Personal history of nicotine dependence; E11.9 Type 2 diabetes mellitus without complications; D72.829 Elevated white blood cell count, unspecified; Z79.4 Long term (current) use of insulin; M25.562 Pain in left knee; R10.9 Unspecified abdominal pain; R14.3 Flatulence; Z90.710 Acquired absence of both cervix and uterus; Z68.35 Body mass index [BMI] 35.0-35.9, adult; E66.9 Obesity, unspecified
CPT/HCPCS: 36415; 36600; 71045; 80053; 80061; 81001; 82140; 82306; 82375; 82607; 82805; 82948; 83036; 83050; 83540; 83605; 83721; 83735; 84100; 84425; 84436; 84443; 84481; 85025; 85652; 86140; 87040; 87086; 93005; 96365; 96372; 99285; G0378; J1650; J3475

== ENCOUNTER 2025-01-22 06:50 | Outpatient (OUT) | payer MEDICAID, SELFPAY ==
--- OUTSIDE RECORDS SUMMARY | 2024-09-11 06:19 | XMS_ITS | Continuity of Care Document ---
Author Organization [facility] Address [address] [place] [address] Phone Care Team Providers Care Ibm Bpm Architect Name Role Phone Dolly Hadley DDS Unavailable Unavailable Allergies, Adverse Reactions, Alerts Substance [...] simvastatin 20 mg tablet TAKE 1 TABLET BY MOUTH DAILY - Active cyclobenzaprine 10 mg [...] dicyclomine 20 mg tablet TAKE 1 TABLET BY MOUTH THREE TIMES DAILY NEEDED FOR ABDOMINAL [...] sucralfate 1 gram tablet TAKE 1 TABLET BY MOUTH BEFORE MEALS & TAKE 1 TABLET [...] 1 TABLET BY MOUTH DAILY - Active prednisone 20 mg tablet TAKE 2 TABLETS BY MOUTH DAILY FOR 3 DAYS - Active [...] BY MOUTH EVERY 12 HOURS - Active amoxicillin 500 mg capsule take 1 capsule by oral route every 8 hours 500 MG - No Longer Active Procedures Procedure Date Oral Hygiene Instruction Post Op Visit Dental Oral Hygiene Instruction Post Op Visit Dental Oral Hygiene Instruction Extract; Erupted Th/exposted Rt Extract; Erupted Th/exposted Rt 025 B[employer] Four Films Intraoral-periapical 1st Film [id number] Additional Aug [id number] Additional Aug Comp Oral Eval New/estab Patient 2024 Advance Directives Directive Yes / No Effective Date File Name No Information Encounters Encounter Description Practice Location Reason(s) For Visit Diagnoses Date Provider Providers Copied on Encounter [facility], [address] [place] [address], [id number], tel:[phone] Dental Clinic DL (chief complaint) Encounter for screening for dental disorders Leonie Alberto. . tel:[phone] [facility], [address] [place] [address], [id number], tel:[phone] Dental Clinic Encounter for screening for dental disorders Leonie Alberto. . tel:[phone] [facility], [address] [place] [address], [id number], [place] tel:[phone] Dental Clinic ext (chief complaint) Encounter for screening for dental disorders Leonie GRIJALVA Dolly. . tel:[phone] [facility], [address] [place] [address], [id number], tel:[phone] Dental Clinic DN (chief complaint) Body mass index [BMI] 36.0-36.9, adultEncounter for screening for dental disorders Leonie Cornejo . tel:[phone] Family History Family Member Type Diagnosis Age At Onset No Information Payers Payer name Insurance type Covered republican ID Alexis genao(s) No Information Social History Type Description Quantity Date Captured Comments Alcohol Use Details Unknown Caffeine Use Details Unknown Tobacco Use Status No Information Smoking Status Former smoker Sex Female Vital Signs Date / Time: Height Weight BMI Pulse Rate Blood Pressure Temperature Respiratory Rate Body Surface Area Head Circumference Head Circ. Percentile Wt./Jason. Percentile BMI percentile Pulse Ox Inhaled Ox 11:33 AM 160/100 mm[Hg] 98.40 F Chief Complaint And Reason For Visit From encounter dated 09/11/2024 11:19'. DL (chief complaint). Description: DL Reason For Referral Reason For Referral No Information Plan Of Treatment Date Type Action Status Goal CT-Colonography. Due on due Goal FIT-DNA. Due on due Goal PRAPARE ASSESSMENT. Due on due Goal Lipid panel. Due on due Goal Unhealthy drug use screening . Due on due Goal Zoster vaccine (1st). Due on due Goal HPV. Due on due Goal FIT. Due on due Goal FOBT. Due on due Goal Tdap. Due on due Goal Colonoscopy. Due on due Goal Hepatitis C screening. Due o n due Goal Influenza vaccine. Due on due Goal Tdap Vaccine. Due on 2024 due Goal Mammogram. Due on due Goal Depression screening. Due on due Goal Hepatitis C screening. Due o n due Goal Colonoscopy. Due on due Goal FIT. Due on due Goal FIT-DNA. Due on due Goal Lipid panel. Due on due Goal Tdap Vaccine. Due on 2024 due Goal Depression screening. Due on due Goal Influenza vaccine. Due on due Goal Unhealthy drug use screening . Due on due Goal Zoster vaccine (). Due on due Goal CT-Colonography. Due on due Goal FOBT. Due on due Goal HPV. Due on due Goal PRAPARE ASSESSMENT. Due on due Goal Mammogram. Due on due Goal Tdap. Due on due Goal Unhealthy drug use screening . Due on due Goal Hepatitis C screening. Due o n due Goal Zoster vaccine (1st). Due on due Goal Colonoscopy. Due on due Goal HPV. Due on due Goal Influenza vaccine. Due on due Goal Lipid panel. Due on due Goal Mammogram. Due on due Goal FIT. Due on due Goal Tdap Vaccine. Due on 2024 due Goal FOBT. Due on due Goal FIT-DNA. Due on due Goal CT-Colonography. Due on due Goal Depression screening. Due on due Goal Hep A. Due on du e Goal Tdap. Due on due Goal PRAPARE ASSESSMENT. Due on due Referral Ordered: Florencio Parry MD timeframe: 6 Months. (related to Body mass index [BMI] 36.0-36.9, adult) [id number] RecommendationOral nutritional supportcompleted History Of Present Illness Encounter Date Complaint History Of Prese nt Illness DL DL ext ext DN DN Functional Status Date Functional Assessmen t No Information Instructions Date Instruction Additional Infor joe Giving encouragement to exercise Related to Body mass index [BMI] 36.0-36.9, adult Assessments Type Assessment Date No Information Patient Care Teams Name Effective Dates (start - stop) Status Members No Information
--- OUTSIDE RECORDS SUMMARY | 2025-01-14 10:00 | XMS_ITS ---
Author Organization [facility] [place] Address [address] [place] [address] Care Team Providers Care Sponge Maker Name Role Phone Quincy Parry Primary Care Provider Allergies Allergen (clinical drug ingredient) Drug/Non Drug Allergy documented on EMR Reaction Allergy Type Onset Date Status Keflexback painDrug AllergyActivelisinoprilLisinoprilUnknownDrug AllergyActive tramadoltraMADoloral lesionsDrug AllergyActive Results Component Value Reference Range Notes UA (Urinalysis, Dipstix only - w/o micro) (Not yet reviewed by provider) Interpretation: Performing Lab: Notes/Report: COLOR yellow Yellow - Sarah - CLARITYclearClear - ClearGLUCOSE-0 - 133 MG/DLALBUMIN-NEG - NEG MG/DLBILIRUBIN- NEG - NEG MG/DLSPECIFIC GRAVITY1.0201.001 - 1.035KETONES+NEG - NEG MG/DLBLOOD, UR-PH, UR5.05 - 9UROBILNOGEN-0.2 - 1 MG/DLNITRITE-NEG - NEG REASON FOR VISIT patient is co uti symptoms, frequency and burning finished atb before thanksgiving Medications Medication SIG (Take, Route, Frequency, Duration) Notes Start Date End Date Status Test Strips - Use 1 strip to check glucose kvng ly DX E11.9; Duration: 90 days 5ActiveSimvastatin 20 MG1 tablet Orally Once a day; Duration: 90 days ActiveVictoza 18 MG/3MLInject 0.6mg Subcutaneous once daily; Duration: 90 days ActiveProtonix 40 MG1 tablet Orally Once a day; Duration: 30 days03/23/2024 ActivePen [place] 31G X 6 MMUse 5 needles daily to inject Insulin DX E11.9; Duration: 30 daysActiveNaltrexone HCl 50 MG1/4 tablet Orally Once a day; Duration: 30 days10/12/2024tiveMultivitaminActiveMetoprolol Tartrate 50 MG1 tablet with food Orally Twice a day; Duration: 30 days03/19/2024tive Hyoscyamine Sulfate 0.125 MG1-2 tabs SL SL every 4 hrs PRN abd pain11/07/2024 ActiveDrysol 20 %1 application at bedtime Externally BID; Duration: 1 days 11/15/2024tiveSEROquel 50 MG1 tablet at bedtime Orally Once a day; Duration: 30 01/14/2025tiveTolterodine Tartrate ER 2 MG1 capsule Orally Once a day; Duration: 30 days01/14/2025tiveMagnesium Oxide 400 MG1 tablet with food Orally Once a day09/06/2024tiveCyclobenzaprine HCl 10 MG1 tablet Orally tid; Duration: 30 days06/18/2024tiveCelecoxib 200 MG1 capsule as needed Orally Once a day; Duration: 30 12/13/2024tiveDiclofenac Sodium 3 %1 application Externally Twice a day07/16/2024tiveBlood Glucose Monitor System w/Deviceuse device Dx:E11.9 daily to monitor blood glucose level03/28/2024tiveLantus SoloStar 100 UNIT/MLInject 60 units Subcutaneous BID; Duration: 30 daysActive Advanced Probiotic-14 -TAKE 1 CAPSULE BY MOUTH DAILY WITH MEALS Oral; Duration: 30 DaysActiveAcetaminophen-Codeine 300-30 MGTAKE 1 TABLET BY MOUTH EVERY 6 HOURS NEEDED; Duration: 14 days5Active Social History Tobacco Use: Social History Observation Description Date Details (start date - stop date) Former Smoker 02/14/1981 - 02/14/2010 Tobacco Use/Smoking Question Answer Notes Patient is a former smoker When did you start smoking?02/14/1981When did you stop smoking?02/14/2010How long has it been since you last smoked?> 10 yearsAdditional Findings: Tobacco UserLight cigarette smoker ((1-9 cigs/day)AUDIT-C (Standard) Question Answer Notes Did you have a drink containing alcohol in the p ast year? No Ldrrsv8ZiymceynfocyqiEgnvtohe Vital Signs Weight 223 lbs 01/14/2025 Height 66 in 01/14/2025 Blood pressure systolic 108 mm Hg 01/15/20 25 Blood pressure diastolic 70 mm Hg 025 BMI 35.99 kg/m2 01/14/2025 Encounters Encounter Location Date Provider Diagnosis [facility] [address] [place] [address] 01/14/2025 Quincy Hoy UTI symptoms R39.9 ; UTI (urinary tract infection), uncomplicated N39.0 ; Dysuria R30.0 and Anxiety F41.9 Assessments Encounter Date Diagnosis (ICD Code) Assessment Notes Treatment Notes Treatment Clinical Notes Section Notes 01/14/2025 UTI symptoms (ICD-10 - R39.9) 01/14/2025UTI (urinary tract infection), uncomplicated (ICD-10 - N39.0)Drink plenty of water. Avoid drinks like coffee, alcohol and soft frinks, as these can irritate your bladder and aggravate your frequent or urgent need to urinate. Apply a warm heating pad to your abdomen to minimize bladder pressure or discomfort. You have been prescribed antibiotics for a urinarytract infection. Antibiotics may bother your stomach, so try taking them with a light meal (unless instructed otherwise by your pharmacist). It is important to take them until they are finished. You can use kzrt-lxd-lcqlvhc acetaminophen or ibuprofen if needed for pain. You should follow up with your Primary Care Physician or return to clinic if not improving in the next 3-5 days.01/14/2025Dysuria (ICD-10 - R30.0)01/14/2025nxiety (ICD-10 - F41.9)deferso n meds and counseling Plan Of Treatment Medication Medication Name Sig Start Date Stop Date Notes Pyridium 200 MG 1 tablet after meals Orally Three time s a day 12/28/2024 levoFLOXacin 750 MG1 tablet Orally Once a day12/28/2024SEROquel 50 MG1 tablet at bedtime Orally Once a day; Duration: 30 days01/14/2025Tolterodine Tartrate ER 2 MG1 capsule Orally Once a day; Duration: 30 days01/14/2025Lantus SoloStar 100 UNIT/MLInject 60 units Subcutaneous BID; Duration: 30 daysTreatment Notes Assessment Notes UTI (urinary tract infection [...] until they are finished. You can use bmqg-vjj-wqopogz acetaminophen or ibuprofen if needed for pain. You should follow up with your Primary Care Physician or return to clinic if not improving in the next 3-5 days. Anxiety deferso n meds and c ounseling Pending Test Test Name Order Date UA (Urinalysis, Dipstix only - w/o micro ) 01/14/2025 Next Appt Details Follow Up: 3-5 days if no im provement, Reason: Progress Notes * Susanne PINZON GDOB:[birth year] (59 yo F)Acc No.[id number]:01/14/2025 Progress Note Patient: Susanne THURSTON :?Florencio Parry ([facility]), MDDOB:1965???Age: 59 Y???Sex:FemaleDate:01/14/2025Phone:[phone]:[address] [place], [place] [id number] In:02:40 PM ESTCheck Out:03:42 PM EST Subjective: * Chief Complaints: * P atient is co uti symptoms, frequency and burning finished atb before thanksgiving * HPI: ???UTI:?The patient complains of?symptoms of UTI.?The symptoms have been present for?1-2 days.?The symptoms are?moderate.?Symptomatic treatment has included?OTC Medication.?Associated symptoms include?increased urge to urinate, painful urination, pelvic pain.? * ROS: ???General/Constitutional:?Malaise?denies.?Chills?denies.?Fever?denies.?Skin:?Rash?denies.?Cardiovascular:?Edema?denies.?Palpitations?denies.?Respiratory:?Chest pain?denies.?Cough?denies.?Gastrointestinal:?Abdominal pain?denies.?Nausea?denies.?Vomiting?denies.?Genitourinary:?Comments?See HPI for details.?Skin:?Rash?denies.? * Active Problem List G47.33 Obstructive sleep ap nabor (adult) (pediatric) Modified On:08/11/2022U Status:kanwwdyptT95.3Over weight Modified On:01/14/2023U Status:iehyizjztE56.90Osteoarthritis Modified On:12/14/2022 Status:cbvcmbtzaY17.00Well adult Modified On:12/14/2022 Status:pbowyflgeO79Qnbiwvqqo Hypertension Modified On:01/14/2023 Status:yryirjoomP61.5Hyperlipidemia Modified On:12/14/2022U Status:chrffwbmcZ60.9Diabetes type 2, controlled Modified On:01/14/2023U Status:dgmkumcmvF49.9Anxiety Modified On:12/14/2022 Status:errudkshzL11.039Hypertensive retinopathy Modified On:12/14/2022U Status:jewjyelloQ06.7Fibromyalgia Modified On:12/14/2022U Status:onnxjapquP10.7Diarrhea Modified On:12/15/2022U Status:glcgxtcxvH38.1Shaky Modified On:01/27/2023U Status:eassifqbmW81.90Acute sinus infection Modified On:04/12/2023U Status:wsnptcvlcS61.207AUnspecified tear of unspecified meniscus, current injury, left knee, initial encounter Modified On:05/10/2023 Status:aaqzdoyzfW74.8XXABruising Modified On:08/15/2023 Status:jbtqpubzaH92.9Gastroenteritis Modified On:09/01/2023U Status:kdcpaudltU16.606Leg pain Modified On:10/19/2023 Status:xpvfgyeamM38.1Hypertriglyceridemia Modified On:11/30/2023U Status:oqxcucrsrL40.0Fatty liver Modified On:03/26/2024 Status:wmkutjuzoE77.10Dysphagia Modified On:03/27/2024 Status:fjwtmqmtjC37.9Acute bronchitis Modified On:04/09/2024 Status:cqexhisirD51Nzdzrvzylpvn, uncontrolled Modified On:04/23/2024 Status:rrwbndgdvD24.829Leukocytosis Modified On:04/23/2024 Status:fndtahhxrE82.1Erythrocytosis Modified On:04/23/2024 Status:dakpqhqhlG63.65Hyperglycemia due to diabetes mellitus Modified On:04/23/2024 Status:eoqmifuwbB28.10Knee osteoarthritis Modified On:07/16/2024 Status:xnshmwdsaQ97Wbjxvqfotqx Modified On:10/22/2024 Status:dzllwozokR95.0Acute UTI Modified On:10/22/2024 Status:confirmed * Medical History: * Surgical History: T AH 2009Exp. Lap 2009LT Knee nerve radiofrequency ablation- Dr. Nassar 07/12/2023ilateral oophorectomy hysterectomy * Hospitalization/Major Diagno stic Procedure: P leurisy, High BP bnormal Labs 2024 * Family History: F ather: , diagnosed with Diabetes, Hypertension, Heart Disease, Kidney Disease. M other: alive, Hypercholesterolemia, GERD, diagnosed with Hypertension. S ister(s): alive, stroke. S on(s): alive, obesity. D aughter(s): alive, obesityNeurological DisorderCardiac IssuesThyroidectomy- complete. 1 sister(s) . 2 son(s) , 1 daughter(s) . . * Social History: ???Tobacco Use:?Tobacco Use/Smoking?Patient is a?former smoker ?When did you start smoking??02/14/1981 ?When did you stop smoking??02/14/2010 ?How long has it been since you last smoked? > 10 years ?Additional Findings: Tobacco User?Light cigarette smoker ((1-9 cigs/day) ???Drug/Alcohol:?AUDIT-C (Standard)?Did you have a drink containing alcohol in the past year??No ?Points?0 ?Interpretation?Negative * Medications: T akingAcetaminophen-Codeine 300-30 MG Tablet TAKE 1 TABLET BY MOUTH EVERY 6 HOURS NEEDED Advanced Probiotic-14(Probiotic Product) - Capsule TAKE 1 CAPSULE BY MOUTH DAILY WITH MEALS Oral Blood Glucose Monitor System w/Device Kit use device Dx:E11.9 daily to monitor blood glucose level Celecoxib 200 MG Capsule 1 capsule as needed Orally Once a day Cyclobenzaprine HCl 10 MG Tablet 1 tablet Orally tid Diclofenac Sodium 3 % Gel 1 application Externally Twice a day Drysol(Aluminum Chloride) 20 % Solution 1 application at bedtime Externally BID Hyoscyamine Sulfate 0.125 MG Tablet Sublingual 1-2 tabs SL SL every 4 hrs PRN abd pain Lantus SoloStar(Insulin Glargine) 100 UNIT/ML Solution Pen-injector Inject 50 units Subcutaneous BID Magnesium Oxide 400 MG Tablet 1 tablet with food Orally Once a day Metoprolol Tartrate 50 MG Tablet 1 tablet with food Orally Twice a day Multivitamin Naltrexone HCl 50 MG Tablet 1/4 tablet Orally Once a day Pen [place] 31G X 6 MM Miscellaneous Use 5 needles daily to inject Insulin DX E11.9 Protonix(Pantoprazole Sodium) 40 MG Tablet Delayed Release 1 tablet Orally Once a day Pyridium(Phenazopyridine HCl) 200 MG Tablet 1 tablet after meals Orally Three times a day Simvastatin 20 MG Tablet 1 tablet Orally Once a day Test Strips - - Use 1 strip to check glucose daily DX E11.9 Victoza(Liraglutide) 18 MG/3ML Solution Pen-injector Inject 0.6mg Subcutaneous once daily Taking Acetaminophen-Codeine 300-30 MG Tablet TAKE 1 TABLET BY MOUTH EVERY 6 HOURS NEEDED Taking Advanced Probiotic-14(Probiotic Product) - Capsule TAKE 1 CAPSULE BY MOUTH DAILY WITH MEALS Oral Taking Blood Glucose Monitor System w/Device Kit use device Dx:E11.9 daily to monitor blood glucose level Taking Celecoxib 200 MG Capsule 1 capsule as needed Orally Once a day Taking Cyclobenzaprine HCl 10 MG Tablet 1 tablet Orally tid Taking Diclofenac Sodium 3 % Gel 1 application Externally Twice a day Taking Drysol(Aluminum Chloride) 20 % Solution 1 application at bedtime Externally BID Taking Hyoscyamine Sulfate 0.125 MG Tablet Sublingual 1-2 tabs SL SL every 4 hrs PRN abd pain Taking Lantus SoloStar(Insulin Glargine) 100 UNIT/ML Solution Pen-injector Inject 50 units Subcutaneous BID Taking Magnesium Oxide 400 MG Tablet 1 tablet with food Orally Once a day Taking Metoprolol Tartrate 50 MG Tablet 1 tablet with food Orally Twice a day Taking Multivitamin Taking Naltrexone HCl 50 MG Tablet 1/4 tablet Orally Once a day Taking Pen [place] 31G X 6 MM Miscellaneous Use 5 needles daily to inject Insulin DX E11.9 Taking Protonix(Pantoprazole Sodium) 40 MG Tablet Delayed Release 1 tablet Orally Once a day Taking Pyridium(Phenazopyridine HCl) 200 MG Tablet 1 tablet after meals Orally Three times a day Taking Simvastatin 20 MG Tablet 1 tablet Orally Once a day Taking Test Strips - - Use 1 strip to check glucose daily DX E11.9 Taking Victoza(Liraglutide) 18 MG/3ML Solution Pen- injector Inject 0.6mg Subcutaneous once daily DiscontinuedCymbalta 60 MG Capsule Delayed Release Particles 1 capsule Orally Once a day levoFLOXacin 750 MG Tablet 1 tablet Orally Once a day Medication List reviewed and reconciled with the patientDiscontinued Cymbalta 60 MG Capsule Delayed Release Particles 1 capsule Orally Once a day Discontinued levoFLOXacin 750 MG Tablet 1 tablet Orally Once a day Medication List reviewed and reconciled with the patient * Allergies: K eflex: back pain - AllergyLisinopril: AllergytraMADol: oral lesions - Allergyno[Allergies Verified] Objective: * Vitals: W t:223lbs, Ht: 66 in, BP:108/70mm Hg, BMI:35.99Index, Ht-cm: 167.64 cm, Wt-k.15 kg. * Examination: ???General Examination: ?GENERAL APPEARANCE:?well developed, well nourished, in no acute distress.?ENT:? ear and nose external appearance normal.?ENMT:? tongue, hard and soft palate and posterior pharynx appear normal.?LYMPH NODES:?no axillary, supraclavicular or inguinal adenopathy.?LUNGS:?clear to auscultation bilaterally.?CARDIO:?S1, S2 normal, no murmurs, rubs, gallops.?ABDOMEN:?soft, nontender, nondistended.?GENITOURINARY:? Bladder non-distended, urethra normal. ?MUSCULOSKELETAL:? full range of motion.?SKIN:? no rashes, warm and dry.?NEUROLOGIC:? alert and oriented to time, place, & person.?PSYCH:? mood/affect full range.? Assessment: * Assessment: 1.?UTI symptoms - R39.9 (Primary)???2.?UTI (urinary tract infection), uncom plicated - N39.0???3.?Dysuria - R30.0???4.?Anxiety - F41.9 ?? Plan: * Treatment: Stop levoFLOXacin Tablet, 750 MG, 1 tablet, Orally, Once a day;?Stop Pyridium Tablet, 200 MG, 1 tablet after meals, Orally, Three times a day;?Refill Lantus SoloStar Solution Pen-injector, 100 UNIT/ML, Inject 60 units Subcutaneous BID, 30 days, 3, Refills 11;?Start Tolterodine Tartrate ER Capsule Extended Release 24 Hour, 2 MG, 1 capsule, Orally, Once a day, 30 days, 30 Capsule, Refills 11.?LAB: UA (Urinalysis, Dipstix only - w/o micro) (Collection Date & Time - 01/14/2025)2.?UTI (urinary tract infection), uncomplicated? Notes:Drink plenty of water. Avoid drinks like coffee, alcohol and soft frinks, as these can irritate your bladder and aggravate your frequent or urgent need to urinate. Apply a warm heating pad to your abdomen to minimize bladder pressure or discomfort. You have been prescribed antibiotics for a urinarytract infection. Antibiotics may bother your stomach, so try taking them with a light meal (unless instructed otherwise by your pharmacist). It is important to take them until they are finished. You can use ycmf-dfk-ijpwiow acetaminophen or ibuprofen if needed for pain. You should follow up with your Primary Care Physician or return to clinic if not improving in the next 3-5 days.??3.?Anxiety ? Start SEROquel Tablet, 50 MG, 1 tablet at bedtime, Orally, Once a day, 30 days, 30, Refills 11. ? Notes: deferso n meds and counseling?? * Labs: * L ab: UA (Urinalysis, Dipstix only - w/o micro) (Collection Date & Time - 01/14/2025) ?ValueReference Range?COLORyellowYellow - Sarah - * C LARITY clear Clear - Clear * G LUCOSE - 0 - 133 MG/DL * A LBUMIN - NEG - NEG MG/DL * B ILIRUBIN - NEG - NEG MG/DL * S PECIFIC GRAVITY 1.020 1.001 - 1.035 * K ETONES + NEG - NEG MG/DL * B LOOD, UR - * P H, UR 5.0 5 - 9 * U ROBILNOGEN - 0.2 - 1 MG/DL * N ITRITE - NEG - NEG * Procedure Codes: 8 1000 URINALYSIS, Modifiers: QW [id number] URINALYSIS WO MICRO * Follow Up: 3 -5 days if no improvement * * Sign off status: CompletedVisit Status:?CHK (Check Out) true * Provider: Dolores Parry (MD DEYA Date: 03/17/2024 Generated for Printing/Faxing/eTransmitting on:?01/22/2025 06:54 AM EST History and Physical Notes * HPI (History of Present Illness) CategorySub-CategoryDetailNotesCategory NotesUTIThe patient complains ofsymptoms of UTIThe symptoms have been present for1-2 daysThe symptoms aremoderate Symptomatic treatment has includedOTC MedicationAssociated symptoms include increased urge to urinate, painful urination, pelvic pain Examination CategorySub-CategoryDetailNotesCategory NotesGeneral ExaminationGENERAL APPEARANCE:well developed, well nourished, in no acute distressENT:ear and nose external appearance normalCARDIO:S1, S2 normal, no murmurs, rubs, gallopsLUNGS: clear to auscultation bilaterallyABDOMEN:soft, nontender, nondistended NEUROLOGIC:alert and oriented to time, place, & personSKIN:no rashes, warm and dryMUSCULOSKELETAL:full range of motionLYMPH NODES:no axillary, supraclavicular or inguinal adenopathyPSYCH:mood/affect full rangeENMT:tongue, hard and soft palate and posterior pharynx appear normalGENITOURINARY:Bladder non-distended, urethra normal
--- OUTSIDE RECORDS SUMMARY | 2025-01-17 10:00 | XMS_ITS | Encounter Summary ---
Author Organization [facility] Address [facility] [place] [id number] Care Team Providers Care Immigration Paralegal Name Role Phone Florencio Parry MD Unavailable [phone] Source Comments In the event this information is protected by the Federal Confidentiality of Alcohol and Drug AbusePatient Records regulations: The Federal rules restrict any use of the information to criminally investigate or prosecute any alcohol or drug abuse patient.[facility] Reason for Referral * Diagnostic Procedure Only (Routine) - ClosedSpecialtyDiagnoses / Procedures Referred By ContactReferred To ContactXR IMAGING Diagnoses Bilateral hip pain Procedures XR HIP GENERAL 3V PELV/AP/LAT LEFT RADEX HIP UNILATERAL WITH PELVIS 2-3 VIEWS Daniella Claros APRN.CNP [address] [place] [address] Phone: tel: fax: [facility] [place] [phone] Referral IDStatusReasonStart DateExpiration DateVisits RequestedVisits [id number] Auto-Generated Referral * Diagnostic Procedure Only (Routine) - ClosedSpecialtyDiagnoses / Procedures Referred By ContactReferred To ContactXR IMAGING Diagnoses Bilateral hip pain Procedures XR HIP GENERAL 3V PELV/AP/LAT RIGHT RADEX HIP UNILATERAL WITH PELVIS 2-3 VIEWS Daniella Claros, TIMBO.[address] [place] [address] Phone: tel: fax: [facility] [place] [phone] Referral IDStatusReasonStart DateExpiration DateVisits RequestedVisits [id number] Auto-Generated Referral * Diagnostic Procedure Only (Routine) - ClosedSpecialtyDiagnoses / Procedures Referred By ContactReferred To ContactXR IMAGING Diagnoses Decreased ROM of left shoulder Chronic left shoulder pain Procedures XR SHOULDER GENERAL 3V OR MORE AP/TRUE AP/OTHER RIGHT RADEX SHOULDER COMPLETE MINIMUM 2 VIEWS Daniella Claros, TIMBO.[address] [employer] [place] [address] Phone: tel: fax: [facility] [place] [phone] Referral IDStatusReasonStart DateExpiration DateVisits RequestedVisits [id number] Auto-Generated Referral * Diagnostic Procedure Only (Routine) - ClosedSpecialtyDiagnoses / Procedures Referred By ContactReferred To ContactXR IMAGING Diagnoses Chronic bilateral low back pain without sciatica Procedures XR LUMBAR GENERAL 3V AP/LAT/L5-S1 RADEX SPINE LUMBOSACRAL 2/3 VIEWS Daniella Claros, TIMBO.[address] [employer] [place] [address] Phone: tel: fax: [facility] [place] [phone] Referral IDStatusReasonStart DateExpiration DateVisits RequestedVisits [id number] Auto-Generated Referral * Diagnostic Procedure Only (Routine) - ClosedSpecialtyDiagnoses / Procedures Referred By ContactReferred To ContactXR IMAGING Diagnoses Pain in thoracic spine Procedures XR THORACIC GENERAL 3V AP/LAT/SWIMMERS RADEX SPINE THORACIC 3 VIEWS Daniella Claros, TOUR MANAGER.[address] [place] [address] Phone: tel: fax: [facility] [place] [phone] Referral IDStatusReasonStart DateExpiration DateVisits RequestedVisits [id number] Auto-Generated Referral * Diagnostic Procedure Only (Routine) - ClosedSpecialtyDiagnoses / Procedures Referred By ContactReferred To ContactXR IMAGING Diagnoses Cervical spine pain Procedures XR CERVICAL 2V FLEX/EXT RADEX SPINE CERVICAL 2 OR 3 VIEWS Daniella Claros, TOUR MANAGER.[address] [employer] [place] [address] Phone: tel: fax: [facility] [place] [phone] Referral IDStatusReasonStart DateExpiration DateVisits RequestedVisits [id number] Auto-Generated Referral * Consult, Test, Treat (Routine) - New RequestSpecialtyDiagnoses / Procedures Referred By ContactReferred To ContactNeurology Diagnoses Paresthesia Procedures OFFICE/OUTPATIENT NEW HIGH MDM 60 MINUTES Daniella Claros, TIMBO.[employer] [address] [place] [address] Phone: tel: fax: Referral IDStatusReasonStart DateExpiration DateVisits RequestedVisits [id number] Request PCP Requested Referral Reason for Visit * Consult, Test, Treat (Routine) - ClosedSpecialtyDiagnoses / ProceduresReferred By ContactReferred To ContactRheumatology Diagnoses Fibromyalgia Procedures OFFICE/OUTPATIENT [facility] 60 MINUTES Florencio Parry MD [address] [place] [address] Phone: tel: fax: Outpatient Referral [address] [place] [address] Referral IDStatusReasonStart DateExpiration DateVisits RequestedVisits [id number] PCP Requested Referral Encounter Details DateTypeDepartmentCare Team (Latest Contact Info)Zubcaevwtaw68/04/2025 10:00 AM ESTOffice Visit Rheumatology [address] [place] [phone] Daniella Claros APRN.[employer] [address] [place] [address] Polyarthralgia (Primary Dx); Paresthesia; Cervical spine pain; Pain in thoracic spine; Chronic bilateral low back pain without sciatica; Decreased ROM of left shoulder; Chronic left shoulder pain; Bilateral hip pain Social History Tobacco UseTypesPacks/DayYears UsedDateSmoking Tobacco: Never AssessedPHQ-2 AnswerDate RecordedPHQ-2 zctmw33103/12/2024rea Deprivation IndexAnswerDate RecordedNational Score (1-100), lower number is lower odly068701/17/2025State Score (1-10), lower number is lower jstm97203/20/2024Data from: https://www.neighborhoodatlas.medicine.[facility].edu/. Last address used for [address] CommentsUnknownSex and Gender InformationValueDate RecordedSex Assigned at BirthNot on fileLegal SexFemale 12/21/2024 3:03 PM ESTGender IdentityNot on fileSexual OrientationNot on file documented as of this encounter Last Filed Vital Signs Vital SignReadingTime TakenCommentsBlood Onpdrpkb554/8501/17/2025 10:06 AM EST Bnnai072701/17/2025 10:06 AM ZNUTmzvozsufau87.3 ??C (97.3 ??F)01/17/2025 10:06 AM ESTRespiratory Rate--Oxygen Saturation--Inhaled Oxygen Concentration--Weight 103.1 kg (227 lb 4.7 oz)01/17/2025 10:06 AM ESTHeight--Body Mass Index-- documented in this encounter Patient Instructions * Patient Instructions* Daniella Claros APRN.CNP - 01/17/2025 11:31 AM EST 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 2nd floor RADIOLOGY - xrays 3. 1st floor, A15, Labs. 4. Schedule with local neurology for EMG testing of you left leg, referral printed for you. documented in this encounter Plan of Treatment DateTypeDepartmentCare Team (Latest Contact Info)Hpgkuoepxgl91/09/2025 2:00 PM ESTOffice Visit [place] [address] Why is my insurance not being billed?02/05/2025 9:30 AM ESTDisst. [facility]ology [address] [address] Daniella Claros APRN.GLASS SCULLION [address] [place] [address] 2w f/u vv per walkupNameTypePriorityAssociated DiagnosesDate/TimePOLYMYOSITIS AND DERMATOMYOSITIS PANELLabRoutine Polyarthralgia 01/17/2025 12:46 PM ESTNameTypePriorityAssociated DiagnosesOrder Schedule POLYMYOSITIS AND DERMATOMYOSITIS PANELLabRoutine Polyarthralgia Expected: 01/17/2025, Expires: 04/18/2025NameTypePriorityAssociated Diagnoses Order ScheduleCONSULT TO NEUROLOGYReferralRoutine Paresthesia 1 Occurrences starting 01/17/2025 until 01/17/2026documented as of this encounter Results * MONOCLONAL PROT UR W/INTERP (01/17/2025 12:52 PM EST)ComponentValueRef Range Test MethodAnalysis TimePerformed AtPathologist SignatureResult (UMPA)No M protein is identified.No M protein is identified.01/21/2025 11:03 AM EST [facility] LABStaff Review (UMPA)Reviewed by Dr. Kelly Roman MD 01/21/2025 11:03 AM [facility] LABSpecimen (Source)Anatomical Location / LateralityCollection Method / VolumeCollection TimeReceived Time UrineURINE SPECIMEN / UnknownNon Blood / Qaggwej9501/17/2025 12:52 PM EST 01/17/2025 12:56 PM EST Narrative Authorizing ProviderResult TypeResult StatusLaura Tonio Claros TOUR MANAGER.CNPLABORATORY Final ResultPerforming OrganizationAddressCity/State/ZIP CodePhone Number [facility] [address] * (ABNORMAL) PROTEIN / CREATININE RATIO (01/17/2025 12:52 PM EST)ComponentValue Ref RangeTest MethodAnalysis TimePerformed AtPathologist SignatureProtein, Urine Tzhwff239 - 20 mg/dL01/18/2025 9:58 AM [facility] LAB Creatinine, Ur Random (UCRR)68.920.0 - 300.0 mg/dL01/18/2025 9:58 AM [facility] LABProtein/Creat Ratio0.15(H)<0.15 mg/mg01/18/2025 9:58 AM [facility] LABComment: Adult Proteinuria Categories: <0.15 mg/mg is considered normal to mildly increased 0.15 - 0.50 mg/mg is considered moderately increased >0.50 mg/mg is considered severely increased KDIGO. (2013). KDIGO 2012 Clinical Practice Guideline for the Evaluation and Management of Chronic Kidney Disease. Official Journal of the International Society of Nephrology, 3(1), 1-150. Specimen (Source)Anatomical Location / LateralityCollection Method / Volume Collection TimeReceived TimeUrineURINE SPECIMEN / UnknownNon Blood / Unknown 01/17/2025 12:52 PM EST01/17/2025 12:56 PM EST Narrative Authorizing ProviderResult TypeResult StatusDaniella Claros APRN.CNPLABORATORY Final ResultPerforming OrganizationAddressty/State/ZIP CodePhone Number [facility] [address] [place] [address], * FRANNY BY IFA SCREEN (01/17/2025 12:46 PM EST)ComponentValueRef RangeTest Method Analysis TimePerformed AtPathologist XspqvygblOENQamxwsndOployvxu11/05/2025 3:17 PM [facility] LABComment: Anti-nuclear antibody test is used as an aid in diagnosis of systemic autoimmune diseases. Where positive and clinically warranted, follow-up using disease- specific testing is recommended. Low positive titers are not uncommon with advanced age, certain chronic infections, and malignancies among others. Test methodology: Indirect fluorescence immunoassay (IFA) using HEp-2 cells. Specimen (Source)Anatomical Location / LateralityCollection Method / Volume Collection TimeReceived TimeBloodBLOOD SPECIMEN / UnknownVenipuncture / Unknown 01/17/2025 12:46 PM EST01/17/2025 12:48 PM EST Narrative Authorizing ProviderResult TypeResult StatusDaniella Claros TOUR MANAGER.CNPLABORATORY Final ResultPerforming OrganizationAddressty/State/ZIP CodePhone Number [facility] [address] [place] [address], [place] * FERRITIN (01/17/2025 12:46 PM EST)ComponentValueRef RangeTest MethodAnalysis TimePerformed AtPathologist YlxdsymgsPmhtvsbh89.614.7 - 205.1 ng/mL01/17/2025 10:48 PM [facility] LABSpecimen (Source)Anatomical Location / LateralityCollection Method / VolumeCollection TimeReceived TimeBloodBLOOD SPECIMEN / UnknownVenipuncture / Zvgxkmr5201/17/2025 12:46 PM EST01/17/2025 12:48 PM EST Narrative Authorizing ProviderResult TypeResult StatusDaniella Claros TOUR MANAGER.CNPLABORATORY Final ResultPerforming OrganizationAddressty/State/ZIP CodePhone Number [facility] [address] [place] [phone], [place] * IRON AND TIBC (01/17/2025 12:46 PM EST)ComponentValueRef RangeTest Method Analysis TimePerformed AtPathologist PsljjilqtFxkw4415 - 186 ug/dL01/17/2025 10:24 PM [facility] ILBMVRH017191 - 386 ug/dL01/17/2025 10:24 PM [facility] LABTransferrin Kmmaagqlst37.815.0 - 57.0 %01/17/2025 10:24 PM [facility] LABSpecimen (Source)Anatomical Location / LateralityCollection Method / VolumeCollection TimeReceived TimeBloodBLOOD SPECIMEN / UnknownVenipuncture / Oiwrduv2801/17/2025 12:46 PM EST01/17/2025 12:48 PM EST Narrative Authorizing ProviderResult TypeResult StatusLaura Tonio Claros TOUR MANAGER.CNPLABORATORY Final ResultPerforming OrganizationAddressCity/State/ZIP CodePhone Number [facility] [address] [place] [address], [place] * TSH W/REFLEX FT4 (01/17/2025 12:46 PM EST)ComponentValueRef RangeTest Method Analysis TimePerformed AtPathologist SignatureTSH1.8200.270 - 4.200 mIU/L 01/17/2025 10:46 PM [facility] LABSpecimen (Source)Anatomical Location / LateralityCollection Method / VolumeCollection TimeReceived Time BloodBLOOD SPECIMEN / UnknownVenipuncture / Ecfbxuj4601/17/2025 12:46 PM EST 01/17/2025 12:48 PM EST Narrative Authorizing ProviderResult TypeResult StatusLaura Tonio Claros TOUR MANAGER.CNPLABORATORY Final ResultPerforming OrganizationAddressCity/State/ZIP CodePhone Number [facility] [address] [place] [phone], [place] * (ABNORMAL) COMPREHENSIVE METABOLIC PANEL (01/17/2025 12:46 PM EST)Component ValueRef RangeTest MethodAnalysis TimePerformed AtPathologist Signature Protein, Total7.66.3 - 8.0 g/dL01/17/2025 10:24 PM [facility] LABAlbumin4.93.9 - 4.9 g/dL01/17/2025 10:24 PM [facility] LAB Calcium, Total10.08.5 - 10.2 mg/dL01/17/2025 10:24 PM [facility] LABBilirubin, Total0.40.2 - 1.3 mg/dL01/17/2025 10:24 PM [facility] LABAlkaline Lmkqbdofzif4881 - 123 U/L103/20/2024 10:24 PM [facility] ZUHSMR0475 - 35 U/L103/20/2024 10:24 PM [facility] FOTTSI68(H)7 - 38 U/L103/20/2024 10:24 PM [facility] BZODnjlngh67 74 - 99 mg/dL01/17/2025 10:24 PM [facility] LABComment: The [place] Diabetes Association (ADA) provides guidance for cutoff values for fasting glucose andrandom glucose. The ADA defines fasting as no caloric intake for at least 8 hours. Fasting plasma glucose results between 100 to 125 mg/dL indicate increased risk for diabetes (prediabetes). Fasting plasma glucose results greater than or equal to 126 mg/dL meet the criteria for diagnosis of diabetes. In the absence of unequivocal hyperglycemia, results should be confirmed by repeat testing. In a patient with classic symptoms of hyperglycemia or hyperglycemic crisis, random plasma glucose results greater than or equal to 200 mg/dL meet the criteria for diagnosis of diabetes. Reference: Standards of Medical Care in Diabetes 2016, [place] Diabetes Association. Diabetes Care. 2016.39(Suppl 1). IBG533 - 21 mg/dL01/17/2025 10:24 PM [facility] LABCreatinine0.80 0.58 - 0.96 mg/dL01/17/2025 10:24 PM [facility] LRCHqncxy911573 - 144 mmol/L103/20/2024 10:24 PM [facility] LABPotassium4.63.7 - 5.1 mmol/L103/20/2024 10:24 PM [facility] JDBGvqvtsvb35081 - 107 mmol/L 01/17/2025 10:24 PM [facility] QJIQN21534 - 30 mmol/L103/20/2024 10:24 PM [facility] LABAnion Mzz908 - 15 mmol/L12/05/2024 10:24 PM [facility] LABEstimated Glomerular Filtration Rate84>=60 mL/min/1.73m 01/17/2025 10:24 PM [facility] LABComment:Estimated Glomerular Filtration Rate (eGFR) is calculated using the 2020 CKD-EPI creatinine equation. This equation utilizes serum creatinine, sex, and age as parameters. The creatinine assay has traceable calibration to isotope dilution-mass spectrometry. Refer to KDIGO guidelines for clinical interpretation. In patients with unstable renal function, e.g. those with acute kidney injury, the eGFRmay not accurately reflect actual GFR.Specimen (Source)Anatomical Location / LateralityCollection Method / VolumeCollection TimeReceived TimeBloodBLOOD SPECIMEN / UnknownVenipuncture / Gqhtigb4501/17/2025 12:46 PM EST01/17/2025 12:48 PM EST Narrative Authorizing ProviderResult TypeResult StatusLaura Tonio Claros TOUR MANAGER.CNPLABORATORY Final ResultPerforming OrganizationAddressCity/State/[facility] [[email or web address]] CodePhone Number [facility] [address] * COMPLETE BLOOD COUNT AND DIFFERENTIAL (01/17/2025 12:46 PM EST)ComponentValue Ref RangeTest MethodAnalysis TimePerformed AtPathologist SignatureWBC8.613.70 - 11.00 k/uL01/17/2025 2:32 PM [facility] LABRBC4.703.90 - 5.20 m/uL01/17/2025 2:32 PM [facility] IINSgkggoxahq04.811.5 - 15.5 g/dL01/17/2025 2:32 PM [facility] LWAUbbjxsxezx61.336.0 - 46.0 % 01/17/2025 2:32 PM [facility] LBZEOG79.080.0 - 100.0 fL 01/17/2025 2:32 PM [facility] FDMAQF21.426.0 - 34.0 pg01/17/2025 2:32 PM [facility] NNCVURE02.630.5 - 36.0 g/dL01/17/2025 2:32 PM [facility] LABRDW-CV12.811.5 - 15.0 %01/17/2025 2:32 PM [facility] LABPlatelet Tufjp623214 - 400 k/uL01/17/2025 2:32 PM [facility] PAZWFD62.49.0 - 12.7 fL01/17/2025 2:32 PM [facility] LABNeutrophils %64.6%01/17/2025 2:32 PM [facility] LABAbs Neut5.561.45 - 7.50 k/uL01/17/2025 2:32 PM [facility] LAB Lymphocytes %23.8%01/17/2025 2:32 PM [facility] LABAbs Lymph2.05 1.00 - 4.00 k/uL01/17/2025 2:32 PM [facility] LABMonocytes %9.9% 01/17/2025 2:32 PM [facility] LABAbs Mono0.85<0.87 k/uL 01/17/2025 2:32 PM [facility] LABEosinophils %1.3%01/17/2025 2:32 PM [facility] LABAbs Eosin0.11<0.46 k/uL01/17/2025 2:32 PM [facility] LABBasophils %0.2%01/17/2025 2:32 PM [facility] LABAbs Baso<0.03<0.11 k/uL01/17/2025 2:32 PM [facility] LABImmature Granulocytes %0.2%01/17/2025 2:32 PM [facility] LABAbs Immature Gran<0.03<0.10 k/uL01/17/2025 2:32 PM [facility] LABNRBC0.0/100 WBC01/17/2025 2:32 PM [facility] LABAbsolute nRBC <0.01<0.01 k/uL01/17/2025 2:32 PM [facility] LABDiff TypeAuto 01/17/2025 2:32 PM [facility] LABSpecimen (Source)Anatomical Location / LateralityCollection Method / VolumeCollection TimeReceived Time BloodBLOOD SPECIMEN / UnknownVenipuncture / Achaech5901/17/2025 12:46 PM EST 01/17/2025 12:48 PM EST Narrative Authorizing ProviderResult TypeResult StatusDaniella Claros APRN.CNPLABORATORY Final ResultPerforming OrganizationAddressCity/State/ZIP CodePhone Number [facility] [address] * ANTI HMGCR AUTOANTIBODIES (01/17/2025 12:46 PM EST)ComponentValueRef RangeTest MethodAnalysis TimePerformed AtPathologist SignatureAnti HMGCR Autoantibodies Test<1.50.0 - 19.9 Units01/21/2025 10:41 PM ESTARUP LABORATORIESComment: INTERPRETIVE INFORMATION: HMGCR Antibody, IgG IgG antibodies to 5-eerlsgg-4-methylglutaryl-coenzyme A reductase (HMGCR) are mainly associated with necrotizing autoimmune myopathy (NAM) in a subset of statin-treated patients. Although infrequent, these antibodies may also be observed in statin-naive patients with NAM. Strong clinical correlation is recommended in the absence of muscle fiber necrosis, elevated serum creatine kinase, perimysial pathology, and/or statin exposure. Performed By: [email or web address] [address] [place] [address] Information Technology Director: Roscoe Matos MD, PhD CLIA Number: [id number] Specimen (Source)Anatomical Location / LateralityCollection Method / Volume Collection TimeReceived TimeBloodBLOOD SPECIMEN / UnknownVenipuncture / Unknown 01/17/2025 12:46 PM EST01/17/2025 12:48 PM EST Narrative Authorizing ProviderResult TypeResult StatusLadestin Claros TOUR MANAGER.CNPLABORATORY Final ResultPerforming OrganizationAddressCity/State/ZIP CodePhone Number [facility] [address] [place] [address] * CREATINE KINASE/CK (01/17/2025 12:46 PM EST)ComponentValueRef RangeTest Method Analysis TimePerformed AtPathologist MygnufoauBI7497 - 196 U/L103/20/2024 10:27 PM [facility] LABSpecimen (Source)Anatomical Location / LateralityCollection Method / VolumeCollection TimeReceived TimeBloodBLOOD SPECIMEN / UnknownVenipuncture / Jmkvhzv7101/17/2025 12:46 PM EST01/17/2025 12:48 PM EST Narrative Authorizing ProviderResult TypeResult Ramsey Claros APRN.CNPLABORATORY Final ResultPerforming OrganizationAddressCity/State/ZIP CodePhone Number [facility] [address] [place] [phone], [place] * ALDOLASE BLD (01/17/2025 12:46 PM EST)ComponentValueRef RangeTest Method Analysis TimePerformed AtPathologist SignatureAldolase7.21.5 - 8.1 U/L 01/17/2025 6:52 PM [facility] LABComment:This test was developed, and its performance characteristics determined by the [facility] Department of Pathology and Laboratory Medicine. It has not been cleared or approved by the FDA. The [facility] Department of Pathology and Laboratory Medicine is regulated under CLIA as qualified to perform high- complexity testing. This test is used for clinical purposes. It should not be regarded as investigational or for research.Specimen (Source)Anatomical Location / LateralityCollection Method / VolumeCollection TimeReceived Time BloodBLOOD SPECIMEN / UnknownVenipuncture / Vmafrmp3101/17/2025 12:46 PM EST 01/17/2025 12:48 PM EST Narrative Authorizing ProviderResult TypeResult Ramsey Claros APRN.CNPLABORATORY Final ResultPerforming OrganizationAddWilkes-Barre General Hospitalty/State/ZIP CodePhone Number [facility] [address] [place] [address], [place] * (ABNORMAL) LACTATE DEHYDROGENASE (01/17/2025 12:46 PM EST)ComponentValueRef RangeTest MethodAnalysis TimePerformed AtPathologist LnhuarpwlNG183(H)135 - 214 U/L103/20/2024 9:13 PM [facility] LABComment: Hemolysis present. The origin of the hemolysis, in vitro versus an in vivo hemolytic process, cannot be distinguished via this assay alone. In vitro hemolysis may lead to non-physiological (spurious)elevation in lactate dehydrogenase (LDH) results. The result should be interpreted in context of the clinical setting and other test results. Suggest reorder as clinically indicated. Specimen (Source)Anatomical Location / LateralityCollection Method / Volume Collection TimeReceived TimeBloodBLOOD SPECIMEN / UnknownVenipuncture / Unknown 01/17/2025 12:46 PM EST01/17/2025 12:48 PM EST Narrative Authorizing ProviderResult TypeResult StatusDaniella Claros TOUR MANAGER.CNPLABORATORY Final ResultPerforming OrganizationAddressCity/State/ZIP CodePhone Number [facility] [address] [place] [address], * IMMUNOFIXATION SCREEN, SERUM (01/17/2025 12:46 PM EST)ComponentValueRef Range Test MethodAnalysis TimePerformed AtPathologist SignatureMPA ResultNo M protein is identified.No M protein is identified.01/21/2025 8:40 AM EST [facility] LABStaff Review (MPA)Reviewed by Dr. Kelly Roman MD 01/21/2025 8:40 AM [facility] LABSpecimen (Source)Anatomical Location / LateralityCollection Method / VolumeCollection TimeReceived Time BloodBLOOD SPECIMEN / UnknownVenipuncture / Myqsxhy0901/17/2025 12:46 PM EST 01/17/2025 12:48 PM EST Narrative Authorizing ProviderResult TypeResult StatusLadestin Claros TOUR MANAGER.CNPLABORATORY Final ResultPerforming OrganizationAddressCity/State/ZIP CodePhone Number [facility] [address] [place] [address], [place] * RHEUMATOID FACTOR (01/17/2025 12:46 PM EST)ComponentValueRef RangeTest Method Analysis TimePerformed AtPathologist SignatureRheumatoid Factor<10<16 IU/mL 01/17/2025 10:27 PM [facility] LABSpecimen (Source)Anatomical Location / LateralityCollection Method / VolumeCollection TimeReceived Time BloodBLOOD SPECIMEN / UnknownVenipuncture / Paluniw2201/17/2025 12:46 PM EST 01/17/2025 12:48 PM EST Narrative Authorizing ProviderResult TypeResult StatusLaura Tonio Claros TOUR MANAGER.CNPLABORATORY Final ResultPerforming OrganizationAddressCity/State/ZIP CodePhone Number [facility] [address] [place] [address], * (ABNORMAL) C3 COMPLEMENT (01/17/2025 12:46 PM EST)ComponentValueRef RangeTest MethodAnalysis TimePerformed AtPathologist SignatureC3 Anpbukdjhd904(H)86 - 166 mg/dL01/17/2025 10:24 PM [facility] LABSpecimen (Source) Anatomical Location / LateralityCollection Method / VolumeCollection Time Received TimeBloodBLOOD SPECIMEN / UnknownVenipuncture / Dwbqcdt4701/17/2025 12:46 PM EST01/17/2025 12:48 PM EST Narrative Authorizing ProviderResult TypeResult StatusLaura Tonio Claros TOUR MANAGER.CNPLABORATORY Final ResultPerforming OrganizationAddressty/State/ZIP CodePhone Number [facility] [address] [place] [address], [place] * C4 COMPLEMENT (01/17/2025 12:46 PM EST)ComponentValueRef RangeTest Method Analysis TimePerformed AtPathologist SignatureC4 [id number] - 46 mg/dL 01/17/2025 10:27 PM [facility] LABSpecimen (Source)Anatomical Location / LateralityCollection Method / VolumeCollection TimeReceived Time BloodBLOOD SPECIMEN / UnknownVenipuncture / Ukpwgjt6001/17/2025 12:46 PM EST 01/17/2025 12:48 PM EST Narrative Authorizing ProviderResult TypeResult StatusLaura Tonio Claros TOUR MANAGER.CNPLABORATORY Final ResultPerforming OrganizationAddressty/State/ZIP CodePhone Number [facility] [address] [place] [address], [place] * KAPPA/WONG,FREE,SER (01/17/2025 12:46 PM EST)ComponentValueRef RangeTest MethodAnalysis TimePerformed AtPathologist SignatureKappa Free, Serum18.53.3 - 19.4 mg/L103/21/2024 1:26 PM [facility]: Rarely, increased serum free light chains levels may not be detected or accurately quantified due to prozone phenomenon or in high viscosity samples using this immunoturbidimetric assay. Correlation with other laboratory results and clinical findings is recommended. The [place] Free Light Chain was performed using the Binding Site Optilite immunoturbidimetric method. Result obtained with different assay methods or kits cannot be used interchangeably. Lambda Free, Serum19.85.7 - 26.3 mg/L103/21/2024 1:26 PM [facility]: Rarely, increased serum free light chains levels may not be detected or accurately quantified due to prozone phenomenon or in high viscosity samples using this immunoturbidimetric assay. Correlation with other laboratory results and clinical findings is recommended. The Lambda Free Light Chain was performed using the Binding Site Optilite immunoturbidimetric method. Result obtained with different assay methods or kits cannot be used interchangeably. ?? K/L Ratio, Serum0.930.26 - 1.6501/18/2025 1:26 PM [facility] Specimen (Source)Anatomical Location / LateralityCollection Method / Volume Collection TimeReceived TimeBloodBLOOD SPECIMEN / UnknownVenipuncture / Unknown 01/17/2025 12:46 PM EST01/17/2025 12:48 PM EST Narrative Authorizing ProviderResult TypeResult StatusLaura Tonio Claros TOUR MANAGER.CNPLABORATORY Final ResultPerforming OrganizationAddressCity/State/ZIP CodePhone Number [facility] [address] [place] [address], * XR HIP GENERAL 3V PELV/AP/LAT LEFT (01/17/2025 12:31 PM EST)Anatomical Region LateralityModalityHipOtherSpecimen (Source)Anatomical Location / Laterality Collection Method / VolumeCollection TimeReceived Time01/17/2025 12:31 PM EST Impressions 01/17/2025 2:09 PM EST IMPRESSION: No evidence of inflammatory arthritis in the right shoulder or bilateral hips. ??No evidence of inflammatory sacroiliitis. No evidence of inflammatory spondyloarthropathy seen in the spine. Mild degenerative findings as described. Director Investor Relations: ANA ?? Transcribe Date/Time: Jan ??2024 ??2:02P Dictated by : JESSICA DUNN MD This examination was interpreted and the report reviewed and electronically signed by: JESSICA DUNN MD on Jan ??2024 ??2:07PM ??EST Narrative 01/17/2025 2:09 PM EST * * *Final Report* * * DATE OF EXAM: Jan ??2024 12:31PM ?? AOX ?? 5351 ??- ??XR HIP 3V PELV+ AP/LAT LT ??/ PROCEDURE REASON: multiple diagnoses ? * * * * Physician Interpretation * * * * EXAMINATION: XR SHLDR >/=3V AP/BLANCA AP/OTHR RT, XR HIP 3V PELV+ AP/LAT RT, XR THORACIC 3V AP/LAT/SWIMMERS, XR CERVICAL 2V FLEX/EXT, XR LUMBAR 3V AP/LAT/L5-S1, XR HIP 3V PELV+ AP/LAT LT PATIENT/TECHNOLOGIST PROVIDED HISTORY: CLINICAL INFORMATION ( PROVIDED BY ORDERING CLINICIAN) : ??Decreased ROM of left shoulder Chronic left shoulder pain Chronic left shoulder pain TECHNIQUE: XR SHLDR >/=3V AP/BLANCA AP/OTHR RT, XR HIP 3V PELV+ AP/LAT RT, XR THORACIC 3V AP/LAT/SWIMMERS, XR CERVICAL 2V FLEX/EXT, XR LUMBAR 3V AP/LAT/L5-S1, XR HIP 3V PELV+ AP/LAT LT COMPARISON: ??None RESULT: Right shoulder: No acute fracture or dislocation. No focal osseous erosion, periostitis, or chondrocalcinosis. ??Glenohumeral and acromioclavicular joints are preserved. ??Acromiohumeral interval is maintained. Bilateral hips and pelvis: No acute fracture or dislocation. No focal osseous erosion, periostitis, or chondrocalcinosis. ??The hip joint spaces are maintained bilaterally with small marginal osteophytes. ??The SI joints are preserved without findings to suggest sacroiliitis. ??Pubic symphysis is maintained. Cervical spine: Counting reference: Craniocervical junction. Lateral flexion and extension only projections of the cervical spine show 2 mm anterolisthesis at C3-4 with flexion only. ??The atlantodental interval is maintained. ??No focal osseous erosion or syndesmophyte formation. ??Vertebral body heights are maintained. ??Mild discogenic degenerative change noted at C5-6. ??Mild multilevel facet hypertrophy. Thoracic spine: Counting reference: The first visualized rib is considered T1. Thoracic kyphosis is maintained without listhesis. ??No focal osseous erosion or syndesmophyte formation. ??Vertebral body heights are preserved. ??Small multilevel endplate osteophytes without substantial disc space narrowing. Lumbar spine: Counting reference: ??Lumbosacral junction. ??For the purposes of this report, ??L5-S1 is considered the most caudal well formed disc space. Lumbar lordosis is maintained without listhesis. ??No focal osseous erosion or syndesmophyte formation. ??Vertebral body heights are preserved. ??Small multilevel endplate osteophytes without substantial disc space narrowing. ??Facet joints appear relatively preserved. Procedure Note Provider, [facility] [place] - 01/17/2025 * * *Final Report* * * DATE OF EXAM: Jan 17 2025 12:31PM AOX 5351 - XR HIP 3V PELV+ AP/LAT LT / PROCEDURE REASON: multiple diagnoses * * * * Physician Interpretation * * * * EXAMINATION: XR SHLDR >/=3V AP/BLANCA AP/OTHR RT, XR HIP 3V PELV+ AP/LAT RT, XR THORACIC 3V AP/LAT/SWIMMERS, XR CERVICAL 2V FLEX/EXT, XR LUMBAR 3V AP/LAT/L5-S1, XR HIP 3V PELV+ AP/LAT LT PATIENT/TECHNOLOGIST PROVIDED HISTORY: CLINICAL INFORMATION ( PROVIDED BY ORDERING CLINICIAN) : Decreased ROM of left shoulder Chronic left shoulder pain Chronic left shoulder pain TECHNIQUE: XR SHLDR >/=3V AP/BLANCA AP/OTHR RT, XR HIP 3V PELV+ AP/LAT RT, XR THORACIC 3V AP/LAT/SWIMMERS, XR CERVICAL 2V FLEX/EXT, XR LUMBAR 3V AP/LAT/L5-S1, XR HIP 3V PELV+ AP/LAT LT COMPARISON: None RESULT: Right shoulder: No acute fracture or dislocation. No focal osseous erosion, periostitis, or chondrocalcinosis. Glenohumeral and acromioclavicular joints are preserved. Acromiohumeral interval is maintained. Bilateral hips and pelvis: No acute fracture or dislocation. No focal osseous erosion, periostitis, or chondrocalcinosis. The hip joint spaces are maintained bilaterally with small marginal osteophytes. The SI joints are preserved without findings to suggest sacroiliitis. Pubic symphysis is maintained. Cervical spine: Counting reference: Craniocervical junction. Lateral flexion and extension only projections of the cervical spine show 2 mm anterolisthesis at C3-4 with flexion only. The atlantodental interval is maintained. No focal osseous erosion or syndesmophyte formation. Vertebral body heights are maintained. Mild discogenic degenerative change noted at C5-6. Mild multilevel facet hypertrophy. Thoracic spine: Counting reference: The first visualized rib is considered T1. Thoracic kyphosis is maintained without listhesis. No focal osseous erosion or syndesmophyte formation. Vertebral body heights are preserved. Small multilevel endplate osteophytes without substantial disc space narrowing. Lumbar spine: Counting reference: Lumbosacral junction. For the purposes of this report, L5-S1 is considered the most caudal well formed disc space. Lumbar lordosis is maintained without listhesis. No focal osseous erosion or syndesmophyte formation. Vertebral body heights are preserved. Small multilevel endplate osteophytes without substantial disc space narrowing. Facet joints appear relatively preserved. IMPRESSION IMPRESSION: No evidence of inflammatory arthritis in the right shoulder or bilateral hips. No evidence of inflammatory sacroiliitis. No evidence of inflammatory spondyloarthropathy seen in the spine. Mild degenerative findings as described. Director Investor Relations: ANA Transcribe Date/Time: Jan 17 2025 2:02P Dictated by : JESSICA DUNN MD This examination was interpreted and the report reviewed and electronically signed by: JESSICA DUNN MD on Jan 17 2025 2:07PM EST Authorizing ProviderResult TypeResult StatusLaura Tonio Claros APRN.CNPRAD-PAMA Final Result * XR HIP GENERAL 3V PELV/AP/LAT RIGHT (01/17/2025 12:31 PM EST)Anatomical Region LateralityModalityHipOtherSpecimen (Source)Anatomical Location / Laterality Collection Method / VolumeCollection TimeReceived Time01/17/2025 12:31 PM EST Impressions 01/17/2025 2:09 PM EST IMPRESSION: No evidence of inflammatory arthritis in the right shoulder or bilateral hips. ??No evidence of inflammatory sacroiliitis. No evidence of inflammatory spondyloarthropathy seen in the spine. Mild degenerative findings as described. Director Investor Relations: ANA ?? Transcribe Date/Time: Jan?2024 ??2:02P Dictated by : JESSICA DUNN MD This examination was interpreted and the report reviewed and electronically signed by: JESSICA DUNN MD on Jan ??2:07PM ??EST Narrative 01/17/2025 2:09 PM EST * * *Final Report* * * DATE OF EXAM: Jan ??2024 12:31PM ?? AOX ?? [id number] ??- ??XR HIP 3V PELV+ AP/LAT RT ??/ PROCEDURE REASON: multiple diagnoses ? * * * * Physician Interpretation * * * * EXAMINATION: XR SHLDR >/=3V AP/BLANCA AP/OTHR RT, XR HIP 3V PELV+ AP/LAT RT, XR THORACIC 3V AP/LAT/SWIMMERS, XR CERVICAL 2V FLEX/EXT, XR LUMBAR 3V AP/LAT/L5-S1, XR HIP 3V PELV+ AP/LAT LT PATIENT/TECHNOLOGIST PROVIDED HISTORY: CLINICAL INFORMATION ( PROVIDED BY ORDERING CLINICIAN) : ??Decreased ROM of left shoulder Chronic left shoulder pain Chronic left shoulder pain TECHNIQUE: XR SHLDR >/=3V AP/BLANCA AP/OTHR RT, XR HIP 3V PELV+ AP/LAT RT, XR THORACIC 3V AP/LAT/SWIMMERS, XR CERVICAL 2V FLEX/EXT, XR LUMBAR 3V AP/LAT/L5-S1, XR HIP 3V PELV+ AP/LAT LT COMPARISON: ??None RESULT: Right shoulder: No acute fracture or dislocation. No focal osseous erosion, periostitis, or chondrocalcinosis. ??Glenohumeral and acromioclavicular joints are preserved. ??Acromiohumeral interval is maintained. Bilateral hips and pelvis: No acute fracture or dislocation. No focal osseous erosion, periostitis, or chondrocalcinosis. ??The hip joint spaces are maintained bilaterally with small marginal osteophytes. ??The SI joints are preserved without findings to suggest sacroiliitis. ??Pubic symphysis is maintained. Cervical spine: Counting reference: Craniocervical junction. Lateral flexion and extension only projections of the cervical spine show 2 mm anterolisthesis at C3-4 with flexion only. ??The atlantodental interval is maintained. ??No focal osseous erosion or syndesmophyte formation. ??Vertebral body heights are maintained. ??Mild discogenic degenerative change noted at C5-6. ??Mild multilevel facet hypertrophy. Thoracic spine: Counting reference: The first visualized rib is considered T1. Thoracic kyphosis is maintained without listhesis. ??No focal osseous erosion or syndesmophyte formation. ??Vertebral body heights are preserved. ??Small multilevel endplate osteophytes without substantial disc space narrowing. Lumbar spine: Counting reference: ??Lumbosacral junction. ??For the purposes of this report, ??L5-S1 is considered the most caudal well formed disc space. Lumbar lordosis is maintained without listhesis. ??No focal osseous erosion or syndesmophyte formation. ??Vertebral body heights are preserved. ??Small multilevel endplate osteophytes without substantial disc space narrowing. ??Facet joints appear relatively preserved. Procedure Note Provider, [facility] [place] - 01/17/2025 * * *Final Report* * * DATE OF EXAM: Jan 17 2025 12:31PM AOX 5352 - XR HIP 3V PELV+ AP/LAT RT / PROCEDURE REASON: multiple diagnoses * * * * Physician Interpretation * * * * EXAMINATION: XR SHLDR >/=3V AP/BLANCA AP/OTHR RT, XR HIP 3V PELV+ AP/LAT RT, XR THORACIC 3V AP/LAT/SWIMMERS, XR CERVICAL 2V FLEX/EXT, XR LUMBAR 3V AP/LAT/L5-S1, XR HIP 3V PELV+ AP/LAT LT PATIENT/TECHNOLOGIST PROVIDED HISTORY: CLINICAL INFORMATION ( PROVIDED BY ORDERING CLINICIAN) : Decreased ROM of left shoulder Chronic left shoulder pain Chronic left shoulder pain TECHNIQUE: XR SHLDR >/=3V AP/BLANCA AP/OTHR RT, XR HIP 3V PELV+ AP/LAT RT, XR THORACIC 3V AP/LAT/SWIMMERS, XR CERVICAL 2V FLEX/EXT, XR LUMBAR 3V AP/LAT/L5-S1, XR HIP 3V PELV+ AP/LAT LT COMPARISON: None RESULT: Right shoulder: No acute fracture or dislocation. No focal osseous erosion, periostitis, or chondrocalcinosis. Glenohumeral and acromioclavicular joints are preserved. Acromiohumeral interval is maintained. Bilateral hips and pelvis: No acute fracture or dislocation. No focal osseous erosion, periostitis, or chondrocalcinosis. The hip joint spaces are maintained bilaterally with small marginal osteophytes. The SI joints are preserved without findings to suggest sacroiliitis. Pubic symphysis is maintained. Cervical spine: Counting reference: Craniocervical junction. Lateral flexion and extension only projections of the cervical spine show 2 mm anterolisthesis at C3-4 with flexion only. The atlantodental interval is maintained. No focal osseous erosion or syndesmophyte formation. Vertebral body heights are maintained. Mild discogenic degenerative change noted at C5-6. Mild multilevel facet hypertrophy. Thoracic spine: Counting reference: The first visualized rib is considered T1. Thoracic kyphosis is maintained without listhesis. No focal osseous erosion or syndesmophyte formation. Vertebral body heights are preserved. Small multilevel endplate osteophytes without substantial disc space narrowing. Lumbar spine: Counting reference: Lumbosacral junction. For the purposes of this report, L5-S1 is considered the most caudal well formed disc space. Lumbar lordosis is maintained without listhesis. No focal osseous erosion or syndesmophyte formation. Vertebral body heights are preserved. Small multilevel endplate osteophytes without substantial disc space narrowing. Facet joints appear relatively preserved. IMPRESSION IMPRESSION: No evidence of inflammatory arthritis in the right shoulder or bilateral hips. No evidence of inflammatory sacroiliitis. No evidence of inflammatory spondyloarthropathy seen in the spine. Mild degenerative findings as described. Director Investor Relations: ANA Transcribe Date/Time: Jan 17 2025 2:02P Dictated by : JESSICA DUNN MD This examination was interpreted and the report reviewed and electronically signed by: JESSICA DUNN MD on Jan 17 2025 2:07PM EST Authorizing ProviderResult TypeResult StatusLaura Tonio Claros TOUR MANAGER.CNPRAD-PAMA Final Result * XR SHOULDER GENERAL 3V OR MORE AP/TRUE AP/OTHER RIGHT (01/17/2025 12:31 PM EST)Anatomical RegionLateralityModalityShoulderOtherSpecimen (Source) Anatomical Location / LateralityCollection Method / VolumeCollection Time Received Time01/17/2025 12:31 PM EST Impressions 01/17/2025 2:09 PM EST IMPRESSION: No evidence of inflammatory arthritis in the right shoulder or bilateral hips. ??No evidence of inflammatory sacroiliitis. No evidence of inflammatory spondyloarthropathy seen in the spine. Mild degenerative findings as described. Director Investor Relations: ANA ?? Transcribe Date/Time: Jan?2024 ??2:02P Dictated by : JESSICA DUNN MD This examination was interpreted and the report reviewed and electronically signed by: JESSICA DUNN MD on Jan?2024 ??2:07PM ??EST Narrative 01/17/2025 2:09 PM EST * * *Final Report* * * DATE OF EXAM: Jan 12:31PM ?? AOX 5253 - XR SHLDR >/=3V AP/BLANCA AP/OTHR RT / PROCEDURE REASON: multiple diagnoses ? * * * * Physician Interpretation * * * * EXAMINATION: XR SHLDR >/=3V AP/BLANCA AP/OTHR RT, XR HIP 3V PELV+ AP/LAT RT, XR THORACIC 3V AP/LAT/SWIMMERS, XR CERVICAL 2V FLEX/EXT, XR LUMBAR 3V AP/LAT/L5-S1, XR HIP 3V PELV+ AP/LAT LT PATIENT/TECHNOLOGIST PROVIDED HISTORY: CLINICAL INFORMATION ( PROVIDED BY ORDERING CLINICIAN) : ??Decreased ROM of left shoulder Chronic left shoulder pain Chronic left shoulder pain TECHNIQUE: XR SHLDR >/=3V AP/BLANCA AP/OTHR RT, XR HIP 3V PELV+ AP/LAT RT, XR THORACIC 3V AP/LAT/SWIMMERS, XR CERVICAL 2V FLEX/EXT, XR LUMBAR 3V AP/LAT/L5-S1, XR HIP 3V PELV+ AP/LAT LT COMPARISON: ??None RESULT: Right shoulder: No acute fracture or dislocation. No focal osseous erosion, periostitis, or chondrocalcinosis. ??Glenohumeral and acromioclavicular joints are preserved. ??Acromiohumeral interval is maintained. Bilateral hips and pelvis: No acute fracture or dislocation. No focal osseous erosion, periostitis, or chondrocalcinosis. ??The hip joint spaces are maintained bilaterally with small marginal osteophytes. ??The SI joints are preserved without findings to suggest sacroiliitis. ??Pubic symphysis is maintained. Cervical spine: Counting reference: Craniocervical junction. Lateral flexion and extension only projections of the cervical spine show 2 mm anterolisthesis at C3-4 with flexion only. ??The atlantodental interval is maintained. ??No focal osseous erosion or syndesmophyte formation. ??Vertebral body heights are maintained. ??Mild discogenic degenerative change noted at C5-6. ??Mild multilevel facet hypertrophy. Thoracic spine: Counting reference: The first visualized rib is considered T1. Thoracic kyphosis is maintained without listhesis. ??No focal osseous erosion or syndesmophyte formation. ??Vertebral body heights are preserved. ??Small multilevel endplate osteophytes without substantial disc space narrowing. Lumbar spine: Counting reference: ??Lumbosacral junction. ??For the purposes of this report, ??L5-S1 is considered the most caudal well formed disc space. Lumbar lordosis is maintained without listhesis. ??No focal osseous erosion or syndesmophyte formation. ??Vertebral body heights are preserved. ??Small multilevel endplate osteophytes without substantial disc space narrowing. ??Facet joints appear relatively preserved. Procedure Note Provider, [facility] - 01/17/2025 * * *Final Report* * * DATE OF EXAM: Jan 17 2025 12:31PM AOX 5253 - XR SHLDR >/=3V AP/BLANCA AP/OTHR RT / PROCEDURE REASON: multiple diagnoses * * * * Physician Interpretation * * * * EXAMINATION: XR SHLDR >/=3V AP/BLANCA AP/OTHR RT, XR HIP 3V PELV+ AP/LAT RT, XR THORACIC 3V AP/LAT/SWIMMERS, XR CERVICAL 2V FLEX/EXT, XR LUMBAR 3V AP/LAT/L5-S1, XR HIP 3V PELV+ AP/LAT LT PATIENT/TECHNOLOGIST PROVIDED HISTORY: CLINICAL INFORMATION ( PROVIDED BY ORDERING CLINICIAN) : Decreased ROM of left shoulder Chronic left shoulder pain Chronic left shoulder pain TECHNIQUE: XR SHLDR >/=3V AP/BLANCA AP/OTHR RT, XR HIP 3V PELV+ AP/LAT RT, XR THORACIC 3V AP/LAT/SWIMMERS, XR CERVICAL 2V FLEX/EXT, XR LUMBAR 3V AP/LAT/L5-S1, XR HIP 3V PELV+ AP/LAT LT COMPARISON: None RESULT: Right shoulder: No acute fracture or dislocation. No focal osseous erosion, periostitis, or chondrocalcinosis. Glenohumeral and acromioclavicular joints are preserved. Acromiohumeral interval is maintained. Bilateral hips and pelvis: No acute fracture or dislocation. No focal osseous erosion, periostitis, or chondrocalcinosis. The hip joint spaces are maintained bilaterally with small marginal osteophytes. The SI joints are preserved without findings to suggest sacroiliitis. Pubic symphysis is maintained. Cervical spine: Counting reference: Craniocervical junction. Lateral flexion and extension only projections of the cervical spine show 2 mm anterolisthesis at C3-4 with flexion only. The atlantodental interval is maintained. No focal osseous erosion or syndesmophyte formation. Vertebral body heights are maintained. Mild discogenic degenerative change noted at C5-6. Mild multilevel facet hypertrophy. Thoracic spine: Counting reference: The first visualized rib is considered T1. Thoracic kyphosis is maintained without listhesis. No focal osseous erosion or syndesmophyte formation. Vertebral body heights are preserved. Small multilevel endplate osteophytes without substantial disc space narrowing. Lumbar spine: Counting reference: Lumbosacral junction. For the purposes of this report, L5-S1 is considered the most caudal well formed disc space. Lumbar lordosis is maintained without listhesis. No focal osseous erosion or syndesmophyte formation. Vertebral body heights are preserved. Small multilevel endplate osteophytes without substantial disc space narrowing. Facet joints appear relatively preserved. IMPRESSION IMPRESSION: No evidence of inflammatory arthritis in the right shoulder or bilateral hips. No evidence of inflammatory sacroiliitis. No evidence of inflammatory spondyloarthropathy seen in the spine. Mild degenerative findings as described. Director Investor Relations: PSCB Transcribe Date/Time: Jan 17 2025 2:02P Dictated by : JESSICA DUNN MD This examination was interpreted and the report reviewed and electronically signed by: JESSICA DUNN MD on Jan 17 2025 2:07PM EST Authorizing ProviderResult TypeResult StatusLaura Tonio Claros APRN.CNPRAD-PAMA Final Result * XR LUMBAR GENERAL 3V AP/LAT/L5-S1 (01/17/2025 12:31 PM EST)Anatomical Region LateralityModalityL-spineOtherSpecimen (Source)Anatomical Location / LateralityCollection Method / VolumeCollection TimeReceived Time01/17/2025 12:31 PM EST Impressions 01/17/2025 2:09 PM EST IMPRESSION: No evidence of inflammatory arthritis in the right shoulder or bilateral hips. ??No evidence of inflammatory sacroiliitis. No evidence of inflammatory spondyloarthropathy seen in the spine. Mild degenerative findings as described. Director Investor Relations: ANA ?? Transcribe Date/Time: Jan ??2024 ??2:02P Dictated by : JESSICA DUNN MD This examination was interpreted and the report reviewed and electronically signed by: JESSICA DUNN MD on Jan ??2024 ??2:07PM ??EST Narrative 01/17/2025 2:09 PM EST * * *Final Report* * * DATE OF EXAM: Jan ??2024 12:31PM ?? AOX ?? 5228 ??- ??XR LUMBAR 3V AP/LAT/L5-S1 ??/ PROCEDURE REASON: multiple diagnoses ? * * * * Physician Interpretation * * * * EXAMINATION: XR SHLDR >/=3V AP/BLANCA AP/OTHR RT, XR HIP 3V PELV+ AP/LAT RT, XR THORACIC 3V AP/LAT/SWIMMERS, XR CERVICAL 2V FLEX/EXT, XR LUMBAR 3V AP/LAT/L5-S1, XR HIP 3V PELV+ AP/LAT LT PATIENT/TECHNOLOGIST PROVIDED HISTORY: CLINICAL INFORMATION ( PROVIDED BY ORDERING CLINICIAN) : ??Decreased ROM of left shoulder Chronic left shoulder pain Chronic left shoulder pain TECHNIQUE: XR SHLDR >/=3V AP/BLANCA AP/OTHR RT, XR HIP 3V PELV+ AP/LAT RT, XR THORACIC 3V AP/LAT/SWIMMERS, XR CERVICAL 2V FLEX/EXT, XR LUMBAR 3V AP/LAT/L5-S1, XR HIP 3V PELV+ AP/LAT LT COMPARISON: ??None RESULT: Right shoulder: No acute fracture or dislocation. No focal osseous erosion, periostitis, or chondrocalcinosis. ??Glenohumeral and acromioclavicular joints are preserved. ??Acromiohumeral interval is maintained. Bilateral hips and pelvis: No acute fracture or dislocation. No focal osseous erosion, periostitis, or chondrocalcinosis. ??The hip joint spaces are maintained bilaterally with small marginal osteophytes. ??The SI joints are preserved without findings to suggest sacroiliitis. ??Pubic symphysis is maintained. Cervical spine: Counting reference: Craniocervical junction. Lateral flexion and extension only projections of the cervical spine show 2 mm anterolisthesis at C3-4 with flexion only. ??The atlantodental interval is maintained. ??No focal osseous erosion or syndesmophyte formation. ??Vertebral body heights are maintained. ??Mild discogenic degenerative change noted at C5-6. ??Mild multilevel facet hypertrophy. Thoracic spine: Counting reference: The first visualized rib is considered T1. Thoracic kyphosis is maintained without listhesis. ??No focal osseous erosion or syndesmophyte formation. ??Vertebral body heights are preserved. ??Small multilevel endplate osteophytes without substantial disc space narrowing. Lumbar spine: Counting reference: ??Lumbosacral junction. ??For the purposes of this report, ??L5-S1 is considered the most caudal well formed disc space. Lumbar lordosis is maintained without listhesis. ??No focal osseous erosion or syndesmophyte formation. ??Vertebral body heights are preserved. ??Small multilevel endplate osteophytes without substantial disc space narrowing. ??Facet joints appear relatively preserved. Procedure Note Provider, [facility] [place] - 01/17/2025 * * *Final Report* * * DATE OF EXAM: Jan 17 2025 12:31PM AOX [id number] - XR LUMBAR 3V AP/LAT/L5-S1 / PROCEDURE REASON: multiple diagnoses * * * * Physician Interpretation * * * * EXAMINATION: XR SHLDR >/=3V AP/BLANCA AP/OTHR RT, XR HIP 3V PELV+ AP/LAT RT, XR THORACIC 3V AP/LAT/SWIMMERS, XR CERVICAL 2V FLEX/EXT, XR LUMBAR 3V AP/LAT/L5-S1, XR HIP 3V PELV+ AP/LAT LT PATIENT/TECHNOLOGIST PROVIDED HISTORY: CLINICAL INFORMATION ( PROVIDED BY ORDERING CLINICIAN) : Decreased ROM of left shoulder Chronic left shoulder pain Chronic left shoulder pain TECHNIQUE: XR SHLDR >/=3V AP/BLANCA AP/OTHR RT, XR HIP 3V PELV+ AP/LAT RT, XR THORACIC 3V AP/LAT/SWIMMERS, XR CERVICAL 2V FLEX/EXT, XR LUMBAR 3V AP/LAT/L5-S1, XR HIP 3V PELV+ AP/LAT LT COMPARISON: None RESULT: Right shoulder: No acute fracture or dislocation. No focal osseous erosion, periostitis, or chondrocalcinosis. Glenohumeral and acromioclavicular joints are preserved. Acromiohumeral interval is maintained. Bilateral hips and pelvis: No acute fracture or dislocation. No focal osseous erosion, periostitis, or chondrocalcinosis. The hip joint spaces are maintained bilaterally with small marginal osteophytes. The SI joints are preserved without findings to suggest sacroiliitis. Pubic symphysis is maintained. Cervical spine: Counting reference: Craniocervical junction. Lateral flexion and extension only projections of the cervical spine show 2 mm anterolisthesis at C3-4 with flexion only. The atlantodental interval is maintained. No focal osseous erosion or syndesmophyte formation. Vertebral body heights are maintained. Mild discogenic degenerative change noted at C5-6. Mild multilevel facet hypertrophy. Thoracic spine: Counting reference: The first visualized rib is considered T1. Thoracic kyphosis is maintained without listhesis. No focal osseous erosion or syndesmophyte formation. Vertebral body heights are preserved. Small multilevel endplate osteophytes without substantial disc space narrowing. Lumbar spine: Counting reference: Lumbosacral junction. For the purposes of this report, L5-S1 is considered the most caudal well formed disc space. Lumbar lordosis is maintained without listhesis. No focal osseous erosion or syndesmophyte formation. Vertebral body heights are preserved. Small multilevel endplate osteophytes without substantial disc space narrowing. Facet joints appear relatively preserved. IMPRESSION IMPRESSION: No evidence of inflammatory arthritis in the right shoulder or bilateral hips. No evidence of inflammatory sacroiliitis. No evidence of inflammatory spondyloarthropathy seen in the spine. Mild degenerative findings as described. Director Investor Relations: ANA Transcribe Date/Time: Jan 17 2025 2:02P Dictated by : JESSICA DUNN MD This examination was interpreted and the report reviewed and electronically signed by: JESSICA DUNN MD on Jan 17 2025 2:07PM EST Authorizing ProviderResult TypeResult StatusLaura Tonio Claros APRN.CNPRAD-PAMA Final Result * XR THORACIC GENERAL 3V AP/LAT/SWIMMERS (01/17/2025 12:31 PM EST)Anatomical RegionLateralityModalityT-spineOtherSpecimen (Source)Anatomical Location / LateralityCollection Method / VolumeCollection TimeReceived Time01/17/2025 12:31 PM EST Impressions 01/17/2025 2:09 PM EST IMPRESSION: No evidence of inflammatory arthritis in the right shoulder or bilateral hips. ??No evidence of inflammatory sacroiliitis. No evidence of inflammatory spondyloarthropathy seen in the spine. Mild degenerative findings as described. Director Investor Relations: PSCB ?? Transcribe Date/Time: Jan ??2024 ??2:02P Dictated by : JESSICA DUNN MD This examination was interpreted and the report reviewed and electronically signed by: JESSICA DUNN MD on Jan ??2024 ??2:07PM ??EST Narrative 01/17/2025 2:09 PM EST * * *Final Report* * * DATE OF EXAM: Jan ??2024 12:31PM ?? AOX ?? [id number] ??- ??XR THORACIC 3V AP/LAT/SWIMMERS ??/ PROCEDURE REASON: Pain in thoracic spine ? * * * * Physician Interpretation * * * * EXAMINATION: XR SHLDR >/=3V AP/BLANCA AP/OTHR RT, XR HIP 3V PELV+ AP/LAT RT, XR THORACIC 3V AP/LAT/SWIMMERS, XR CERVICAL 2V FLEX/EXT, XR LUMBAR 3V AP/LAT/L5-S1, XR HIP 3V PELV+ AP/LAT LT PATIENT/TECHNOLOGIST PROVIDED HISTORY: CLINICAL INFORMATION ( PROVIDED BY ORDERING CLINICIAN) : ??Decreased ROM of left shoulder Chronic left shoulder pain Chronic left shoulder pain TECHNIQUE: XR SHLDR >/=3V AP/BLANCA AP/OTHR RT, XR HIP 3V PELV+ AP/LAT RT, XR THORACIC 3V AP/LAT/SWIMMERS, XR CERVICAL 2V FLEX/EXT, XR LUMBAR 3V AP/LAT/L5-S1, XR HIP 3V PELV+ AP/LAT LT COMPARISON: ??None RESULT: Right shoulder: No acute fracture or dislocation. No focal osseous erosion, periostitis, or chondrocalcinosis. ??Glenohumeral and acromioclavicular joints are preserved. ??Acromiohumeral interval is maintained. Bilateral hips and pelvis: No acute fracture or dislocation. No focal osseous erosion, periostitis, or chondrocalcinosis. ??The hip joint spaces are maintained bilaterally with small marginal osteophytes. ??The SI joints are preserved without findings to suggest sacroiliitis. ??Pubic symphysis is maintained. Cervical spine: Counting reference: Craniocervical junction. Lateral flexion and extension only projections of the cervical spine show 2 mm anterolisthesis at C3-4 with flexion only. ??The atlantodental interval is maintained. ??No focal osseous erosion or syndesmophyte formation. ??Vertebral body heights are maintained. ??Mild discogenic degenerative change noted at C5-6. ??Mild multilevel facet hypertrophy. Thoracic spine: Counting reference: The first visualized rib is considered T1. Thoracic kyphosis is maintained without listhesis. ??No focal osseous erosion or syndesmophyte formation. ??Vertebral body heights are preserved. ??Small multilevel endplate osteophytes without substantial disc space narrowing. Lumbar spine: Counting reference: ??Lumbosacral junction. ??For the purposes of this report, ??L5-S1 is considered the most caudal well formed disc space. Lumbar lordosis is maintained without listhesis. ??No focal osseous erosion or syndesmophyte formation. ??Vertebral body heights are preserved. ??Small multilevel endplate osteophytes without substantial disc space narrowing. ??Facet joints appear relatively preserved. Procedure Note Provider, [facility] [place] - 01/17/2025 * * *Final Report* * * DATE OF EXAM: Jan 17 2025 12:31PM AOX [id number] - XR THORACIC 3V AP/LAT/SWIMMERS / PROCEDURE REASON: Pain in thoracic spine * * * * Physician Interpretation * * * * EXAMINATION: XR SHLDR >/=3V AP/BLANCA AP/OTHR RT, XR HIP 3V PELV+ AP/LAT RT, XR THORACIC 3V AP/LAT/SWIMMERS, XR CERVICAL 2V FLEX/EXT, XR LUMBAR 3V AP/LAT/L5-S1, XR HIP 3V PELV+ AP/LAT LT PATIENT/TECHNOLOGIST PROVIDED HISTORY: CLINICAL INFORMATION ( PROVIDED BY ORDERING CLINICIAN) : Decreased ROM of left shoulder Chronic left shoulder pain Chronic left shoulder pain TECHNIQUE: XR SHLDR >/=3V AP/BLANCA AP/OTHR RT, XR HIP 3V PELV+ AP/LAT RT, XR THORACIC 3V AP/LAT/SWIMMERS, XR CERVICAL 2V FLEX/EXT, XR LUMBAR 3V AP/LAT/L5-S1, XR HIP 3V PELV+ AP/LAT LT COMPARISON: None RESULT: Right shoulder: No acute fracture or dislocation. No focal osseous erosion, periostitis, or chondrocalcinosis. Glenohumeral and acromioclavicular joints are preserved. Acromiohumeral interval is maintained. Bilateral hips and pelvis: No acute fracture or dislocation. No focal osseous erosion, periostitis, or chondrocalcinosis. The hip joint spaces are maintained bilaterally with small marginal osteophytes. The SI joints are preserved without findings to suggest sacroiliitis. Pubic symphysis is maintained. Cervical spine: Counting reference: Craniocervical junction. Lateral flexion and extension only projections of the cervical spine show 2 mm anterolisthesis at C3-4 with flexion only. The atlantodental interval is maintained. No focal osseous erosion or syndesmophyte formation. Vertebral body heights are maintained. Mild discogenic degenerative change noted at C5-6. Mild multilevel facet hypertrophy. Thoracic spine: Counting reference: The first visualized rib is considered T1. Thoracic kyphosis is maintained without listhesis. No focal osseous erosion or syndesmophyte formation. Vertebral body heights are preserved. Small multilevel endplate osteophytes without substantial disc space narrowing. Lumbar spine: Counting reference: Lumbosacral junction. For the purposes of this report, L5-S1 is considered the most caudal well formed disc space. Lumbar lordosis is maintained without listhesis. No focal osseous erosion or syndesmophyte formation. Vertebral body heights are preserved. Small multilevel endplate osteophytes without substantial disc space narrowing. Facet joints appear relatively preserved. IMPRESSION IMPRESSION: No evidence of inflammatory arthritis in the right shoulder or bilateral hips. No evidence of inflammatory sacroiliitis. No evidence of inflammatory spondyloarthropathy seen in the spine. Mild degenerative findings as described. Director Investor Relations: ANA Transcribe Date/Time: Jan 17 2025 2:02P Dictated by : JESSICA DUNN MD This examination was interpreted and the report reviewed and electronically signed by: JESSICA DUNN MD on Jan 17 2025 2:07PM EST Authorizing ProviderResult TypeResult StatusLaura Tonio Claros APRN.CNPRAD-PAMA Final Result * XR CERVICAL 2V FLEX/EXT (01/17/2025 12:31 PM EST)Anatomical RegionLaterality ModalityC-spineOtherSpecimen (Source)Anatomical Location / Laterality Collection Method / VolumeCollection TimeReceived Time01/17/2025 12:31 PM EST Impressions 01/17/2025 2:09 PM EST IMPRESSION: No evidence of inflammatory arthritis in the right shoulder or bilateral hips. ??No evidence of inflammatory sacroiliitis. No evidence of inflammatory spondyloarthropathy seen in the spine. Mild degenerative findings as described. Director Investor Relations: ANA ?? Transcribe Date/Time: Jan ??2024 ??2:02P Dictated by : JESSICA DUNN MD This examination was interpreted and the report reviewed and electronically signed by: JESSICA DUNN MD on Jan ??2:07PM ??EST Narrative 01/17/2025 2:09 PM EST * * *Final Report* * * DATE OF EXAM: Jan?2024 12:31PM ?? AOX ?? [id number] ??- ??XR CERVICAL 2V FLEX/EXT ??/ PROCEDURE REASON: Cervical spine pain ? * * * * Physician Interpretation * * * * EXAMINATION: XR SHLDR >/=3V AP/BLANCA AP/OTHR RT, XR HIP 3V PELV+ AP/LAT RT, XR THORACIC 3V AP/LAT/SWIMMERS, XR CERVICAL 2V FLEX/EXT, XR LUMBAR 3V AP/LAT/L5-S1, XR HIP 3V PELV+ AP/LAT LT PATIENT/TECHNOLOGIST PROVIDED HISTORY: CLINICAL INFORMATION ( PROVIDED BY ORDERING CLINICIAN) : ??Decreased ROM of left shoulder Chronic left shoulder pain Chronic left shoulder pain TECHNIQUE: XR SHLDR >/=3V AP/BLANCA AP/OTHR RT, XR HIP 3V PELV+ AP/LAT RT, XR THORACIC 3V AP/LAT/SWIMMERS, XR CERVICAL 2V FLEX/EXT, XR LUMBAR 3V AP/LAT/L5-S1, XR HIP 3V PELV+ AP/LAT LT COMPARISON: ??None RESULT: Right shoulder: No acute fracture or dislocation. No focal osseous erosion, periostitis, or chondrocalcinosis. ??Glenohumeral and acromioclavicular joints are preserved. ??Acromiohumeral interval is maintained. Bilateral hips and pelvis: No acute fracture or dislocation. No focal osseous erosion, periostitis, or chondrocalcinosis. ??The hip joint spaces are maintained bilaterally with small marginal osteophytes. ??The SI joints are preserved without findings to suggest sacroiliitis. ??Pubic symphysis is maintained. Cervical spine: Counting reference: Craniocervical junction. Lateral flexion and extension only projections of the cervical spine show 2 mm anterolisthesis at C3-4 with flexion only. ??The atlantodental interval is maintained. ??No focal osseous erosion or syndesmophyte formation. ??Vertebral body heights are maintained. ??Mild discogenic degenerative change noted at C5-6. ??Mild multilevel facet hypertrophy. Thoracic spine: Counting reference: The first visualized rib is considered T1. Thoracic kyphosis is maintained without listhesis. ??No focal osseous erosion or syndesmophyte formation. ??Vertebral body heights are preserved. ??Small multilevel endplate osteophytes without substantial disc space narrowing. Lumbar spine: Counting reference: ??Lumbosacral junction. ??For the purposes of this report, ??L5-S1 is considered the most caudal well formed disc space. Lumbar lordosis is maintained without listhesis. ??No focal osseous erosion or syndesmophyte formation. ??Vertebral body heights are preserved. ??Small multilevel endplate osteophytes without substantial disc space narrowing. ??Facet joints appear relatively preserved. Procedure Note Provider, [facility] [place] - 01/17/2025 * * *Final Report* * * DATE OF EXAM: Jan 17 2025 12:31PM AOX [id number] - XR CERVICAL 2V FLEX/EXT / PROCEDURE REASON: Cervical spine pain * * * * Physician Interpretation * * * * EXAMINATION: XR SHLDR >/=3V AP/BLANCA AP/OTHR RT, XR HIP 3V PELV+ AP/LAT RT, XR THORACIC 3V AP/LAT/SWIMMERS, XR CERVICAL 2V FLEX/EXT, XR LUMBAR 3V AP/LAT/L5-S1, XR HIP 3V PELV+ AP/LAT LT PATIENT/TECHNOLOGIST PROVIDED HISTORY: CLINICAL INFORMATION ( PROVIDED BY ORDERING CLINICIAN) : Decreased ROM of left shoulder Chronic left shoulder pain Chronic left shoulder pain TECHNIQUE: XR SHLDR >/=3V AP/BLANCA AP/OTHR RT, XR HIP 3V PELV+ AP/LAT RT, XR THORACIC 3V AP/LAT/SWIMMERS, XR CERVICAL 2V FLEX/EXT, XR LUMBAR 3V AP/LAT/L5-S1, XR HIP 3V PELV+ AP/LAT LT COMPARISON: None RESULT: Right shoulder: No acute fracture or dislocation. No focal osseous erosion, periostitis, or chondrocalcinosis. Glenohumeral and acromioclavicular joints are preserved. Acromiohumeral interval is maintained. Bilateral hips and pelvis: No acute fracture or dislocation. No focal osseous erosion, periostitis, or chondrocalcinosis. The hip joint spaces are maintained bilaterally with small marginal osteophytes. The SI joints are preserved without findings to suggest sacroiliitis. Pubic symphysis is maintained. Cervical spine: Counting reference: Craniocervical junction. Lateral flexion and extension only projections of the cervical spine show 2 mm anterolisthesis at C3-4 with flexion only. The atlantodental interval is maintained. No focal osseous erosion or syndesmophyte formation. Vertebral body heights are maintained. Mild discogenic degenerative change noted at C5-6. Mild multilevel facet hypertrophy. Thoracic spine: Counting reference: The first visualized rib is considered T1. Thoracic kyphosis is maintained without listhesis. No focal osseous erosion or syndesmophyte formation. Vertebral body heights are preserved. Small multilevel endplate osteophytes without substantial disc space narrowing. Lumbar spine: Counting reference: Lumbosacral junction. For the purposes of this report, L5-S1 is considered the most caudal well formed disc space. Lumbar lordosis is maintained without listhesis. No focal osseous erosion or syndesmophyte formation. Vertebral body heights are preserved. Small multilevel endplate osteophytes without substantial disc space narrowing. Facet joints appear relatively preserved. IMPRESSION IMPRESSION: No evidence of inflammatory arthritis in the right shoulder or bilateral hips. No evidence of inflammatory sacroiliitis. No evidence of inflammatory spondyloarthropathy seen in the spine. Mild degenerative findings as described. Director Investor Relations: ANA Transcribe Date/Time: Jan 17 2025 2:02P Dictated by : JESSICA DUNN MD This examination was interpreted and the report reviewed and electronically signed by: JESSICA DUNN MD on Jan 17 2025 2:07PM EST Authorizing ProviderResult TypeResult StatusLaura Tonio Claros TOUR MANAGER.CNPRAD-PAMA Final Result documented in this encounter Visit Diagnoses Diagnosis Polyarthralgia- Primary Pain in joint, multiple sites Paresthesia Disturbance of skin sensation Cervical spine pain Cervicalgia Pain in thoracic spine Chronic bilateral low back pain without sciatica Decreased ROM of left shoulder Chronic left shoulder pain Pain in joint, shoulder region Bilateral hip pain Pain in joint, pelvic region and thigh Cervical spine pain Cervicalgia Pain in thoracic spine Chronic bilateral low back pain without sciatica Decreased ROM of left shoulder Chronic left shoulder pain Pain in joint, shoulder region Bilateral hip pain Pain in joint, pelvic region and thigh documented in this encounter Care Teams Team MemberRelationshipSpecialtyStart DateEnd Date Florencio Parry MD [address] [place] [address] Family Xpmduzoi30/7/25documented as of this encounter
--- OUTSIDE RECORDS SUMMARY | 2025-01-17 11:44 | XMS_ITS | Encounter Summary ---
Author Organization [facility] Address [facility]0 [place] [id number] Care Team Providers Care Unleavened Dough Mixer Name Role Phone Florencio Parry MD Unavailable [phone] Source Comments In the event this information is protected by the Federal Confidentiality of Alcohol and Drug AbusePatient Records regulations: The Federal rules restrict any use of the information to criminally investigate or prosecute any alcohol or drug abuse patient.[facility] Reason for Referral * Diagnostic Procedure Only (Routine) - ClosedSpecialtyDiagnoses / Procedures Referred By ContactReferred To ContactXR IMAGING Diagnoses Bilateral hip pain Procedures XR HIP GENERAL 3V PELV/AP/LAT LEFT RADEX HIP UNILATERAL WITH PELVIS 2-3 VIEWS Daniella Claros APRN.CNP [address] [place] [address] Phone: tel: fax: XR IMAGING [place] [address] Referral IDStatusReasonStart DateExpiration DateVisits RequestedVisits [id number] Auto-Generated Referral * Diagnostic Procedure Only (Routine) - ClosedSpecialtyDiagnoses / Procedures Referred By ContactReferred To ContactXR IMAGING Diagnoses Bilateral hip pain Procedures XR HIP GENERAL 3V PELV/AP/LAT RIGHT RADEX HIP UNILATERAL WITH PELVIS 2-3 VIEWS Daniella Claros, TIMBO.PAYROLL AUDITOR [address] [place] [address] Phone: tel: fax: XR IMAGING [place] [address] Referral IDStatusReasonStart DateExpiration DateVisits RequestedVisits [id number] Auto-Generated Referral * Diagnostic Procedure Only (Routine) - ClosedSpecialtyDiagnoses / Procedures Referred By ContactReferred To ContactXR IMAGING Diagnoses Decreased ROM of left shoulder Chronic left shoulder pain Procedures XR SHOULDER GENERAL 3V OR MORE AP/TRUE AP/OTHER RIGHT RADEX SHOULDER COMPLETE MINIMUM 2 VIEWS Daniella Claros, TIMBO.PAYROLL AUDITOR [address] [place] [address] Phone: tel: fax: XR IMAGING [place] [address] Referral IDStatusReasonStart DateExpiration DateVisits RequestedVisits [id number] Auto-Generated Referral * Diagnostic Procedure Only (Routine) - ClosedSpecialtyDiagnoses / Procedures Referred By ContactReferred To ContactXR IMAGING Diagnoses Chronic bilateral low back pain without sciatica Procedures XR LUMBAR GENERAL 3V AP/LAT/L5-S1 RADEX SPINE LUMBOSACRAL 2/3 VIEWS Daniella Claros, AIRCRAFT RESTORER.PAYROLL AUDITOR [address] [place] [address] Phone: tel: fax: XR IMAGING [place] [address] Referral IDStatusReasonStart DateExpiration DateVisits RequestedVisits [id number] Auto-Generated Referral * Diagnostic Procedure Only (Routine) - ClosedSpecialtyDiagnoses / Procedures Referred By ContactReferred To ContactXR IMAGING Diagnoses Pain in thoracic spine Procedures XR THORACIC GENERAL 3V AP/LAT/SWIMMERS RADEX SPINE THORACIC 3 VIEWS Daniella Claros, AIRCRAFT RESTORER.PAYROLL AUDITOR [address] [place] [address] Phone: tel: fax: XR IMAGING [place] [address] Referral IDStatusReasonStart DateExpiration DateVisits RequestedVisits [id number] Auto-Generated Referral * Diagnostic Procedure Only (Routine) - ClosedSpecialtyDiagnoses / Procedures Referred By ContactReferred To ContactXR IMAGING Diagnoses Cervical spine pain Procedures XR CERVICAL 2V FLEX/EXT RADEX SPINE CERVICAL 2 OR 3 VIEWS Daniella Claros, AIRCRAFT RESTORER.PAYROLL AUDITOR [address] [place] [address] Phone: tel: fax: XR IMAGING [place] [address] Referral IDStatusReasonStart DateExpiration DateVisits RequestedVisits [id number] Auto-Generated Referral Reason for Visit * ReasonCommentsRadio Gen A21 * Diagnostic Procedure Only (Routine) - ClosedSpecialtyDiagnoses / Procedures Referred By ContactReferred To ContactXR IMAGING Diagnoses Bilateral hip pain Procedures XR HIP GENERAL 3V PELV/AP/LAT LEFT RADEX HIP UNILATERAL WITH PELVIS 2-3 VIEWS Daniella Claros, AIRCRAFT RESTORER.PAYROLL AUDITOR [address] [place] [address] Phone: tel: fax: XR IMAGING [facility]95 Referral IDStatusReasonStart DateExpiration DateVisits RequestedVisits [id number] Auto-Generated Referral / Encounter Details DateTypeDepartmentCare Team (Latest Contact Info)Xaasjfmmxrc38/04/2025 11:44 AM EST - 01/17/2025 11:59 PM ESTHospital Encounter Radiology [address] [place] [address] Cervical spine pain [M54.2] Discharge Disposition: Home Social History Tobacco UseTypesPacks/DayYears UsedDateSmoking Tobacco: Never AssessedPHQ-2 AnswerDate RecordedPHQ-2 ucyrn05903/12/2024rea Deprivation IndexAnswerDate RecordedNational Score (1-100), lower number is lower htdx058201/17/2025State Score (1-10), lower number is lower ufqe37403/20/2024Data from: https://www.neighborhoodatlas.medicine.[facility].edu/. Last address used for [address] [place] [address]/17/2025CommentsUnknownSex and Gender InformationValueDate RecordedSex Assigned at BirthNot on fileLegal SexFemale 12/21/2024 3:03 PM ESTGender IdentityNot on fileSexual OrientationNot on file documented as of this encounter Medications at Time of Discharge MedicationSigDispense QuantityRefillsLast FilledStart DateEnd Date tolterodine ER (DETROL LA) 2 mg 24 hr capsule 1 capsule.01/14/2025 triamcinolone acetonide (KENALOG) 0.1 % cream APPLY to the affected area on the arms up to 2 (TWO) weeks FBFDLN8604/03/2024 SEROQUEL 50 mg tablet Take 50 mg by mouth daily at bedtime.01/14/2025 simvastatin (ZOCOR) 20 mg tablet Take 20 mg by mouth.06/20/2024 Geydmqtenchkl-Puvdpatd-Pjsteg (CENTRUM SILVER) tab Take 1 tablet by mouth every morning. magnesium oxide (MAG-OX) 400 mg (241.3 mg magnesium) tablet Take 400 mg by mouth.09/06/2024 hyoscyamine sublingual (LEVSIN SL) 0.125 mg 0.125 mg.11/07/2024 cyclobenzaprine (FLEXERIL) 10 mg tablet Take 10 mg by mouth.06/18/2024 celecoxib (CELEBREX) 200 mg capsule Take 200 mg by mouth once daily.12/13/2024 VICTOZA 2-ANDI 0.6 mg/0.1 mL (18 mg/3 mL) pen injector Inject 0.6mg Subcutaneous once daily; Duration: 90 days simvastatin (ZOCOR) 20 mg tablet Take 20 mg by mouth daily at bedtime. metoprolol tartrate, short acting, (LOPRESSOR) 50 mg tablet Take 50 mg by mouth two times a day. pantoprazole (PROTONIX) 40 mg grps Take 40 mg by mouth daily at 6 am.documented as of this encounter Progress Notes * Marcus Dorsey RT(R) - 01/17/2025 1:00 PM EST Radiology Service Progress Note PATIENT NAME: Susanne Clark DATE OF SERVICE: January 17, 2025 TIME: 12:33 PM PATIENT IDENTITY VERIFICATION COMPLETED USING TWO (2) IDENTIFIERS: Name and Date of confirmedby patient verbally. FALL SCREENING: Has the patient had 2 falls in the last year or 1 fall with injury or currently using an Ambulatory Assistive Device (Walker, Cane, Wheelchair, Crutches, etc.)? No PATIENT GENDER DATA: Assigned female at . status: : No status:NO. PATIENT RELEVANT IMPLANT DATA REVIEWED: Not Applicable PATIENT PRESENTS WITH AN IMPLANTABLE OR ATTACHED SHEET ROCK LAYER: No RADIOLOGY DEPARTMENT: General X-ray: Exam(s) Completed: Spine X-Ray(s): Cervical FLEX/EXT, Thoracic, and Lumbar AP / LAT / L5-S1 Pelvis X-Ray: Pelvis with Hip Bilateral Upper Extremity X-Ray(s): Shoulder, AP / TRUE AP right /y-view PERIPHERAL IV DATA: Not applicable SIGNED BY: RT Amos(R) January 17, 2025 12:33 PM documented in this encounter Plan of Treatment DateTypeDepartmentCare Team (Latest Contact Info)Rqazsdlcbjd52/09/2025 2:00 PM ESTOffice Visit [place] [phone] Why is my insurance not being billed?02/05/2025 9:30 AM ESTDisFour [facility]s [facility] [address] [address] Daniella Claros, AIRCRAFT RESTORER.PAYROLL AUDITOR [address] [place] [address] 2w f/u vv per walkupdocumented as of this encounter Procedures Procedure NamePriorityDate/TimeAssociated DiagnosisCommentsXR CERVICAL 2V FLEX/BAJUwdmuxh67/04/2025 12:31 PM EST Cervical spine pain XR THORACIC GENERAL 3V AP/LAT/RBPUCKZBLjpwbjf09/04/2025 12:31 PM EST Pain in thoracic spine XR SHOULDER GENERAL 3V OR MORE AP/TRUE AP/OTHER GSOBIPnxcueq50/04/2025 12:31 PM EST Decreased ROM of left shoulder Chronic left shoulder pain XR LUMBAR GENERAL 3V AP/LAT/L5-P0Siqcbql77/04/2025 12:31 PM EST Chronic bilateral low back pain without sciatica XR HIP GENERAL 3V PELV/AP/LAT OQBXWHcfxwqz09/04/2025 12:31 PM EST Bilateral hip pain XR HIP GENERAL 3V PELV/AP/LAT GHFDRmycwot49/04/2025 12:31 PM EST Bilateral hip pain documented in this encounter Results * XR HIP GENERAL 3V PELV/AP/LAT LEFT (01/17/2025 12:31 PM EST)Anatomical Region LateralityModalityHipOtherSpecimen (Source)Anatomical Location / Laterality Collection Method / VolumeCollection TimeReceived Time01/17/2025 12:31 PM EST Impressions 01/17/2025 2:09 PM EST IMPRESSION: No evidence of inflammatory arthritis in the right shoulder or bilateral hips. ??No evidence of inflammatory sacroiliitis. No evidence of inflammatory spondyloarthropathy seen in the spine. Mild degenerative findings as described. [employer] Finisher: ANA ?? Transcribe Date/Time: Jan?2024 ??2:02P Dictated by : JESSICA DUNN MD This examination was interpreted and the report reviewed and electronically signed by: JESSICA DUNN MD on Jan?2024 ??2:07PM ??EST Narrative 01/17/2025 2:09 PM EST * * *Final Report* * * DATE OF EXAM: Jan?2024 12:31PM ?? AOX ?? [id number] ??- ??XR [...] appear relatively preserved. Procedure Note Provider, [facility] - 01/17/2025 * * *Final Report* * [...] the spine. Mild degenerative findings as described. [employer] Finisher: ANA Transcribe Date/Time: Jan 17 2025 2:02P [...] the spine. Mild degenerative findings as described. [employer] Finisher: ANA ?? Transcribe Date/Time: Jan ??2024 ??2:02P [...] joints appear relatively preserved. Procedure Note Provider, [facility] - 01/17/2025 * * *Final Report* * [...] the spine. Mild degenerative findings as described. [employer] Finisher: PSCB Transcribe Date/Time: Jan 17 2025 2:02P Dictated by : JESSICA DUNN MD This examination was interpreted and the report reviewed and electronically signed by: JESSICA DUNN MD on Jan 17 2025 2:07PM EST Authorizing ProviderResult TypeResult StatusLaura Tonio Claros APRN.CNPRAD-PAMA Final Result * XR SHOULDER GENERAL 3V [...] the spine. Mild degenerative findings as described. [employer] Finisher: PSCB ?? Transcribe Date/Time: Jan ??2024 ??2:02P Dictated by : JESSICA DUNN MD This examination was interpreted and the report reviewed and electronically signed by: JESSICA DUNN MD on Jan ??2024 ??2:07PM ??EST Narrative 01/17/2025 2:09 PM EST * * *Final Report* * * DATE OF EXAM: Jan?2024 12:31PM ?? AOX [id number] - XR SHLDR [...] joints appear relatively preserved. Procedure Note Provider, [facility] - 01/17/2025 * * *Final Report* * [...] the spine. Mild degenerative findings as described. [employer] Finisher: ANA Transcribe Date/Time: Jan 17 2025 2:02P [...] the spine. Mild degenerative findings as described. [employer] Finisher: ANA ?? Transcribe Date/Time: Jan ??2024 ??2:02P Dictated by : JESSICA DUNN MD This examination was interpreted and the report reviewed and electronically signed by: JESSICA DUNN MD on Jan ??2024 ??2:07PM ??EST Narrative 01/17/2025 2:09 PM EST * * *Final Report* * * DATE OF EXAM: Jan?2024 12:31PM ?? AOX ?? [id number] ??- ??XR [...] joints appear relatively preserved. Procedure Note Provider, [facility] - 01/17/2025 * * *Final Report* * [...] the spine. Mild degenerative findings as described. [employer] Finisher: ANA Transcribe Date/Time: Jan 17 2025 2:02P [...] the spine. Mild degenerative findings as described. Fib[employer] Finisher: ANA ?? Transcribe Date/Time: Jan ??2024 ??2:02P Dictated by : JESSICA DUNN MD This examination was interpreted and the report reviewed and electronically signed by: JESSICA DUNN MD on Jan ??2:07PM ??EST Narrative 01/17/2025 2:09 PM EST * * *Final Report* * * DATE OF EXAM: Jan?2024 12:31PM ?? AOX ?? [id number] ??- ??XR [...] joints appear relatively preserved. Procedure Note Provider, [facility] - 01/17/2025 * * *Final Report* * [...] the spine. Mild degenerative findings as described. [employer] Finisher: ANA Transcribe Date/Time: Jan 17 2025 2:02P [...] the spine. Mild degenerative findings as described. [employer] Finisher: ANA ?? Transcribe Date/Time: Jan?2024 ??2:02P Dictated [...] joints appear relatively preserved. Procedure Note Provider, [facility] - 01/17/2025 * * *Final Report* * [...] the spine. Mild degenerative findings as described. [employer] Finisher: ANA Transcribe Date/Time: Jan 17 2025 2:02P Dictated by : JESSICA DUNN MD This examination was interpreted and the report reviewed and electronically signed by: JESSICA DUNN MD on Jan 17 2025 2:07PM EST Authorizing ProviderResult TypeResult StatusLaura Tonio Claros AIRCRAFT RESTORER.CNPRAD-PAMA Final Result documented in this encounter Visit Diagnoses Diagnosis Cervical spine pain Cervicalgia Pain in thoracic spine Chronic bilateral low back pain without sciatica Decreased ROM of left shoulder Chronic left shoulder pain Pain in joint, shoulder region Bilateral hip pain Pain in joint, pelvic region and thigh documented in this encounter Care Teams Team MemberRelationshipSpecialtyStart DateEnd Date Florencio Parry MD [address] [place] [address] [facility]12/21/24documented as of this encounter
--- NOTE | 2025-01-22 06:53 | US_ITS ---
The [address] [address] Patient Name: RJ PINZON MRN: [id number] date: 1965 Sex: F Assigned Patient Location: [place] Current Patient Location: [place] Accession/Order Number: [id number] Exam Date: 01/22/2025 07:00 Report Date: 01/22/2025 09:59 At the request of: JAJA DILL MD Procedure: US renal bladder US renal bladder 01/22/2025 7:50 AM SIGNS AND SYMPTOMS: UTI, flank pain, hematuria COMPARISON: 09/05/2024. FINDINGS: Right kidney measures 13.4 x 5.1 x 4.7 centimeters . The right renal cortex measures 1.2 cm in thickness. There is mild right-sided hydronephrosis , similar to the prior CT. Left kidney measures 13.6 x 4.5 x 4.8 cm . No hydronephrosis or mass. The left renal cortex measures 1.2 cm in thickness. The urinary bladder is morphologically normal. No free fluid is seen in the pelvis. Before voiding, the bladder has an estimated volume of 135 mL. Bilateral ureteral jets were visualized. US/US renal bladder IMPRESSION: Mild right-sided hydronephrosis is noted similar to the prior CT. No left-sided hydronephrosis. Impression dictated by: Bernardo Camacho M.D. 01/22/2025 9:59 AM Dictation Location: [place] [address] Electronically authenticated by: [id number] Y Date: 01/22/2025 09:59
--- OUTSIDE RECORDS SUMMARY | 2025-01-22 06:53 | XMS_ITS | CCD ---
Author Organization [facility] Care Team Providers Care Radiological Metallurgist Name Role Phone PrudencioDorys bentley Unavailable Liliya Fletcher Unavailable MD Jaja Parry Primary Care Provider [phone] HAKEEM Fletcher Attending Provider [phone] Mark Gu Unavailable FUENTES ., DR WILKINSON Admitting [...] HOY ., DR WILKINSON Primary Care Unavailable QUINTONER, DR NOHEMY Johnson Consulting Unavailable LILIYA HUTTON Consulting Unavailable MARK GU Admitting Unavailable MARK GU Attending Unavailable FUENTES ., DR WILKINSON Primary Care Unavailable MD Jaja Parry Primary Care Provider MD Gregg Nassar Attending Provider MD Jaja Parry Primary Care Provider MD Gregg Nassar Attending Provider [phone] Jaja Parry MD Primary Care Provider Jaja Parry MD Primary Care Provider Gregg Nassar MD Attending Provider Jaja Parry MD Primary Care Provider Gregg Nassar MD Attending Provider Gregg Nassar MD Other Provider Vielka Galeano MD Attending Provider Zohra GUTIÉRREZ, Jonathan Attending Provider [phone] Kanani DDS, Dolly Unavailable Unavailable Kanani DDS, Dolly Attending Unavailable Jaja Parry MD Primary Care Unavailable ADRIEN JACQUES Attending Unavailable ADRIEN JACQUES Attending Unavailable Leonie DDS, Dolly Unavailable Unavailable Jaja Parry MD Primary Care Provider [phone] Gregg Nassar MD Attending Provider [phone] Jaja Parry MD Attending Provider [phone] Jonathan العلي Attending Unavailable Jonathan العلي Admitting Unavailable Jaja Parry Admitting Unavailable Jaja Parry M Attending Unavailable Gregg Nassar Attending Unavailable Gregg Nassar Admitting Unavailable Jaja Parry M Primary Care Unavailable Gregg Nassar Attending Unavailable Gregg Nassar Admitting Unavailable Jaja Parry Primary Care Unavailable Halina Galeanom Juwan Attending Unavailable Vielka Galeano Admitting Unavailable NON STAFF Primary Care Provider Unavailabl e Jaja Parry MD Primary Care Provider [phone] Gregg Nassar MD Attending Provider [phone] JAJA PARRY Primary Care Unavailable LAZARA GARRETT Attending Unavailable Jaja Paryr MD Attending Provider [phone] Gregg Nassar MD Attending Provider [phone] NON STAFF Primary Care Provider Unavailabl e Allergies Allergy ClassificationReported Allergen(s)Allergy TypeDate of OnsetReaction(s) FacilityAngiotensin Converting Enzyme (ROBERTA) Inhibitors (1 source)LisinoprilDrug Smfyifc11-89-8551AnsjFmcmzhtekBerger Hospital Cephalosporins (antibiotic) (1 source)CephalexinDrug Ojzkjwu14-42-2912Gravdtf ReactionLima Memorial Hospital (5 sources)Cephalexin; Translations: [Keflex]Drug Pgyidqz61-60-6525OqckrlyStt [facility] (1 source)CorticosteroidsDrug allergy (disorder)27-07-5008LepSelect [facility] (1 source)DULoxetineDrug Hfarakn95-92-0741ClnSelect [facility] [facility] (20 sources)Cephalexin; Translations: [cephalexin]Drug Nntujdx66-17-7510Bybewba [facility] (20 sources)Lisinopril; Translations: [lisinopril]Drug Cigdbdl34-71-4236LfadFairfield Medical Center Medications Current Medications MedicationDrug Class(es)DatesSig (Normalized)Sig (Original)acetaminophen 300 mg / codeine phosphate 30 mg oral tablet (10 sources)Opioid AgonistStart: 10-06-8506Bbamftpiujdwh-Codeine 300-30 mg tablet Active TAB PO August 12, 2024 11:00pm Complies with drug therapyascorbic acid 60 mg / cholecalciferol 0.01 mg / folic acid 0.3 mg / niacin 13.5 mg / riboflavin 1.2mg / sodium fluoride 0.55 mg / thiamine 1.05 mg / vitamin a 0.75 mg / vitamin b12 0.0045 mg / vitamin b6 1.05 mg / vitamin e 6.75 mg chewable tablet (6 sources)Nicotinic Acid, Vitamin A, Vitamin B12, Vitamin D, Vitamin CPediatric Multivitamins-Fl (MultiVitamin + Fluoride) 0.25 MG chewable tablet Multivitamin Activecelecoxib 200 mg oral capsule (1 source)Nonsteroidal Anti-inflammatory DrugStart: 09-11-8297Bhuzspkdm 200 mg capsule Active MG PO December 18, 2024 12:00am Complies with drug therapy cyclobenzaprine hydrochloride 10 mg oral tablet (12 sources)Muscle RelaxantStart: 17-65-3365udvc 1 tablet by mouth three times daily as needed for muscle spasmsCyclobenzaprine 10 mg tablet Active 10 MG PO Three times daily as needed for muscle spasm June 11:00pm Complies with drug therapyDULoxetine 60 mg delayed release oral capsule (11 sources)Serotonin and Norepinephrine Reuptake InhibitorStart: 25-23-4046wcrw 1 capsule by mouth once dailyDuloxetine 60 mg capsule,delayed release(DR/EC) Active 60 MG PO Daily at 629July 23, 2024 11:00pm Complies with drug therapy3 ml insulin glargine 100 unt/ml pen injector (12 sources)Insulin AnalogStart: 66-13-4356Jnfajzv Glargine (Lantus Solostar U- 100 Insulin) 100 unit/mL (3 mL) insulin pen Active 30 UNIT SUBCUT Twice daily July 10, 2024 11:00pm Complies with drug therapyStart: 58-50-9013Pehwxey Glargine (Lantus Solostar U-100 Insulin) 100 unit/mL (3 mL) insulin pen Active UNIT SUBCUT July 11, 2024 12:00amlidocaine 0.05 mg/mg medicated patch (2 sources)Antiarrhythmic, Amide Local AnestheticStart: 78-35-5130Xnsayszfh 5 % 1 patch remove after 12 hours Externally Once a day for 30 days Feb, Active3 ml liraglutide 6 mg/ml pen injector (2 sources)GLP-1 Receptor AgonistStart: 24-73-8321Oyyxvxqodpz (Victoza 3-Gunner) 0.6 mg/0.1 mL (18 mg/3 mL) pen injector Active MG SUBCUT November 18, 2024 11:00pm Complies with drug therapymetoprolol tartrate 50 mg oral tablet (12 sources)beta-Adrenergic BlockerStart: 69-06-4808hjun 1 tablet by mouth twice dailyMetoprolol Tartrate 50 mg tablet Active 50 MG PO Twice daily July 10, 2024 11:00pm Complies with drug therapymultivit with min-folic acid (11 sources)Start: 81-24-1702tyck 1 tablet by mouth once dailymultivit with min- folic acid Active 1 TAB PO Daily July 10, 2024 11:00pm Complies with drug therapyStart: 25-74-2754idmc 1 tablet by mouth once dailyStart: 18-16-2654psxf 1 tablet by mouth once dailymultivit with min-folic acid Active 1 TAB PO Daily July 11, 2024 12:00am Complies with drug therapyStart: 80-76-9083evza 1 tablet by mouth once dailymultivit with min-folic acid Active 1 TAB PO Daily July 11, 2024 12:00ammultivit with min-folic acid (Adult Multivitamin Gummies) (1 source)Start: 66-97-5179asernise with min-folic acid (Adult Multivitamin Gummies) Active PO July 11, 2024 12:00amondansetron 4 mg oral tablet (1 source)Serotonin-3 Receptor AntagonistStart: 41-23-8279mjxx 1 tablet by mouth every eight hours as neededZofran ODT 4 MG 1 tablet on the tongue and allow to dissolve Orally every 8 hrs as needed for 4 days Sep, Activepantoprazole 40 mg delayed release oral tablet (10 sources)Proton Pump InhibitorStart: 27-13-3731ekio 1 tablet by mouth once Pantoprazole 40 mg tablet,delayed release (DR/EC) Active 40 MG PO Once July 10, 2024 11:00pm Complies with drug therapyPantoprazole 40 mg tablet,delayed release (DR/EC) (2 sources)Start: 30-52-0540lxhf 1 tablet by mouth oncePantoprazole 40 mg tablet,delayed release (DR/EC) Active 40 MG PO Once July 11, 2024 12:00am simvastatin 20 mg oral tablet (20 sources)HMG-CoA Reductase InhibitorStart: 37-89-2216joao 1 tablet by mouth once dailySimvastatin 20 mg tablet Active 20 MG PO Daily July 10, 2024 11:00pm Complies with drug therapySimvastatin ActiveTart Thapa (4 sources)Tart Thapa ActiveTart Thapa 1200 MG capsule (6 sources)Tart Thapa 1200 MG capsule Tart Thapa Active Completed/Discontinued Medications MedicationDrug Class(es)DatesSig (Normalized)Sig (Original)amoxicillin 500 mg oral capsule (1 source)Penicillin-class AntibacterialStart: 09-11-2024 End: 92-78-9073ytjp 1 capsule by mouth every eight hoursamoxicillin 500 mg capsule take 1 capsule by oral route every 8 hours 500 MG - No Longer ActiveARIPiprazole 5 mg oral tablet (20 sources)Atypical AntipsychoticStart: 05-09-2023 End: 07-70-5233hnrk 1 tablet by mouth once dailyAripiprazole 5 mg tablet Discontinued 5 MG PO Daily May 08, 2023 11:00pm July 11, 2024 9:48am F reeTextSi tablet Orally Once a day; Note: Source Status: Taking; Provider: Riccardo Flores ( )Gabe Qrmrau86 hr buPROPion hydrochloride 300 mg extended release oral tablet (20 sources)AminoketoneStart: 05-09-2023 End: 34-79-5293ohlk 1 tablet by mouth once daily in the morningBupropion Hcl 300 mg tablet extended release 24 hr Discontinued 1 TAB PO Daily May 08, 2023 11:00pm July 11, 2024 9:47am FreeTextSi tablet in the morning Orally Once a day; Note: Source Status: Taking; Provider: Riccardo Flores ( ) take 1 tablet by mouth every twenty-four hours in the morningbuPROPion XL (Wellbutrin XL) 300 MG 24 hr tablet Take 300 mg by mouth in the morning. Active take 1 tablet by mouth every twenty-four hoursbuPROPion HCl ER (XL) 300 MG 1 tablet in the morning Orally Once a day Activeempagliflozin 25 mg oral tablet (20 sources)Sodium-Glucose Cotransporter 2 InhibitorStart: 05-09-2023 End: 72-89-6953krtq 1 tablet by mouth once dailyEmpagliflozin (Jardiance) 25 mg tablet Discontinued 25 MG PO Daily May 08, 2023 11:00pm July 11, 2024 9:47amStart: 33-97-5848tisj 10 mg by mouth in the morningJardiance 10 MG Take 10 mg by mouth in the morning. 04/16/2022 ActivemetFORMIN hydrochloride 500 mg oral tablet (20 sources)BiguanideStart: 05-09-2023 End: 37-08-7843gtej 1 tablet by mouth once dailyMetformin 500 mg tablet Discontinued 500 MG PO Daily May 08, 2023 11:00pm July 11, 2024 9:47am FreeTextSi tablet with a meal Orally Once a day; Note: Source Status: Taking; Provider: Riccardo Flores ( )take 2 tablets by mouth at mealtimemetFORMIN (Glucophage) 500 MG tablet Take 1,000 mg by mouth in the morning. Take with meals. Activetake 1 tablet by mouth every twenty-four hours metFORMIN HCl 500 MG 1 tablet with a meal Orally Once a day ActivemetFORMIN HCl Activenabumetone 500 mg oral tablet (20 sources)Nonsteroidal Anti-inflammatory DrugStart: 05-09-2023 End: 17-88-3189uwjt 1 tablet by mouth twice dailyNabumetone 500 mg tablet Discontinued 1 TAB PO Twice daily May 08, 2023 11:00pm July 11, 2024 9:47am FreeTextSi tablet Orally Twice a day; Note: Source Status: Taking; Provider: Riccardo Flores ( )take 1 tablet by mouth every twelve hoursNabumetone 500 MG 1 tablet Orally Twice a day Activepioglitazone 45 mg oral tablet (20 sources)Peroxisome Proliferator Receptor alpha Agonist, Peroxisome Proliferator Receptor gamma Agonist, ThiazolidinedioneStart: 05-09-2023 End: 02-08-0852pxen 1 tablet by mouth once dailyPioglitazone 45 mg tablet Discontinued 45 MG PO Daily May 08, 2023 11:00pm July 11, 2024 9:47am FreeTextSi tablet Orally Once a day; Note: Source Status: Taking; Provider: Riccardo Flores ( )Actos Activesertraline 100 mg oral tablet (20 sources)Serotonin Reuptake InhibitorStart: 05-09-2023 End: 43-82-1796eooa 1 tablet by mouth once dailySertraline 100 mg tablet Discontinued 100 MG PO Daily May 08, 2023 11:00pm July 11, 2024 9:47am FreeTextSi tablet Orally Once a day; Note: Source Status: Taking; Provider: Riccardo Flores ( )Zoloft ActiveSITagliptin 100 mg oral tablet (20 sources)Dipeptidyl Peptidase 4 InhibitorStart: 05-09-2023 End: 43-10-4359xile 1 tablet by mouth once dailySitagliptin Phosphate 100 mg tablet Discontinued 1 TAB PO Daily May 08, 2023 11:00pm July 11, 2024 9:47am FreeTextSi tablet Orally Once a day; Note: Source Status: Taking; Provider: Riccardo Flores ( )traMADol hydrochloride 50 mg oral tablet (20 sources)Opioid AgonistStart: 10-13-2023 End: 04-59-9708fvyk 1 tablet by mouth twice daily as needed for painTramadol 50 mg tablet Discontinued 50 MG PO Twice daily as needed for pain 30 15 0 October 12, 2023 11:00pm August 13, 2024 7:25am Contusion of left knee Contusion of left knee, initial encounterStart: 05-12-2023 End: 75-81-9797gcsm 1 tablet by mouth every four to six hours as needed for pain Tramadol 50 mg tablet Discontinued 50 MG PO EVERY 4-6 HOURS as needed for pain 42 7 0 May 11, 2023 11:00pm July 12, 2023 8:53am Acute meniscal tear of left knee dispense #42 (forty two) DX: S83.207Atriamcinolone acetonide 40 mg/ml injectable suspension (3 sources)CorticosteroidStart: 36-16-6374Ythvsyc-40 14 Jul, 2022 40 mgVit C-S.Mgtzaj-Sfbjon-Sbbzb Sd (Tart Thapa) 20-869-97-75-20 mg capsule (16 sources)Start: 07-12-2023 End: 46-35-3788Lhd C-S.Rjijsv-Dsdlpt-Hfiee Sd (Tart Thapa) 13-983-52-75-20 mg capsule Discontinued CAP PO July 11, 2023 11:00pm July 24, 2024 8:24amStart: 07-12-2023 End: 78-06-3645Ytf C-S.Aukbuq-Ljzspq-Bdscd Sd (Tart Thapa) 75-593-35-75-20 mg capsule Discontinued CAP PO July 12, 2023 12:00am July 24, 2024 9:24amStart: 65-93-4857Eld C-S.Lehehr-Vljamh-Owpri Sd (Tart Thapa) 67-871-82-75-20 mg capsule Active CAP PO July 12, 2023 12:00am Problems Active Problems Problem ClassificationProblemDateDocumented DateEpisodic/ChronicConditions associated with dizziness or vertigo (1 source)Dizziness and giddiness; Translations: [Dizziness and giddiness]Onset: 29-14-3645EuvfgmpqGsvmabaw mellitus with complications (5 sources)Type 2 diabetes mellitus with hyperglycemia; Translations: [Polyneuropathy due to diabetes mellitus]Onset: 719537-53-8246Vayefac Disorders of lipid metabolism (1 source)Hyperlipidemia, unspecified; Translations: [HYPERLIPIDEMIA UNSPECIFIED]Onset: 35-75-1913XydyikhUsven disorders and dislocations; trauma-related (20 sources)Unspecified tear of unspecified meniscus, current injury, left knee, initial encounter; Translations: [Unspecified tear of unspecified meniscus, current injury, left knee, subsequent encounter]Onset: 16-67-8246WjwdybdhJdvsfcr (4 sources)Pain in toe; Translations: [Tinea unguium]64-39-0067Jxhgulmp Nonspecific chest pain (3 sources)Chest pain, unspecified; Translations: [Chest pain]Onset: 12-16-2024 EpisodicOsteoarthritis (20 sources)Osteoarthritis of left knee joint; Translations: [Unilateral primary osteoarthritis, left knee]Onset: 83-60-1851JjodsyhTzxsz connective tissue disease (20 sources)Fibromyalgia; Translations: [Fibromyalgia]00-43-7269QzwxrptbSyvxj connective tissue disease (2 sources)Fibromyalgia; Translations: [Myalgia and myositis, unspecified] 07-34-4200LhyszwjyIdehn diseases of veins and lymphatics (4 sources)Vascular insufficiency; Translations: [Venous insufficiency (chronic) (peripheral)]36-84-1040RmpmgvhcQicga lower respiratory disease (1 source)Shortness of breathOnset: 01-63-5000FdlkcvndFojob nervous system disorders (20 sources)Chronic pain; Translations: [Other chronic pain]80-52-4593Jsfqgzq Other nervous system disorders (10 sources)Other chronic pain; Translations: [Other chronic pain]Onset: 684270-63-6365HbqfgcmRuuev non-traumatic joint disorders (7 sources)Pain in left knee; Translations: [PAIN IN LEFT KNEE]Onset: 02-22-2022 EpisodicOther non-traumatic joint disorders (20 sources)Pain in unspecified knee; Translations: [Knee pain]06-17-2023 EpisodicOther screening for suspected conditions (not mental disorders or infectious disease) (5 sources)Encounter for screening for dental disorders; Translations: [Encounter for screening for dental disorders]Onset: EpisodicResidual codes; unclassified (4 sources)Obstructive sleep apnea (adult) (pediatric); Translations: [OBSTRUCTIVE SLEEP APNEA]Onset: 13-20-1461MelyxdbQcaxshhaocs injury; contusion (20 sources)Contusion of left knee, initial encounter; Translations: [Contusion of left knee]EpisodicUnclassified (5 sources)Call Dr. Horne office to schedule a follow up appointment if you do not already have one scheduled Past or Other Problems Problem ClassificationProblemDateDocumented DateEpisodic/ChronicDeficiency and other anemia (1 source)Anemia, unspecified; Translations: [ANEMIA UNSPECIFIED]Onset: 06-92-6507IyfyaxniIbltsuerveqxt and screening for infectious disease (1 source)Contact with and (suspected) exposure to other viral communicable diseasesOnset: 2021 Resolved: 92-14-5553HkgnsdixBjaqctuo codes; unclassified (1 source)Edema, unspecified; Translations: [EDEMA UNSPECIFIED]Onset: 02-25-2022 EpisodicSprains and strains (1 source)Strain of other muscle(s) and tendon(s) at lower leg level, left leg, initial encounter; Translations: [STRAIN OTH MSC TEND LOW LT LEG INIT]Onset: 18-36-1647ReieqynlBflrjtupleid (1 source)ext (chief complaint)Onset: 59-90-1529Dimpyyvkkeln (1 source)DL (chief complaint)Onset: 44-76-6214Hpqhd infection (1 source)COVID-19Onset: 2021 Resolved: 2021 Results Test NameValueInterpretationReference RangeFacilityBASIC METABOLIC PANELon 53-37-0095Ynoqe gap [Moles/Vol]12 mmol/LNormal5-15[facility] Comment on above:Performed By: #### BMP #### [facility] ([facility]) [address] [place] [address] [place] [address] VIRCalcium [Mass/Vol]9.3 mg/dLNormal8.5-10.5[facility] HospitalComment on above:Performed By: #### BMP #### [facility] ([facility]) [address] [place] [address] [place] [address] VIRChloride [Moles/Vol]100 mmol/URqicqx04-611GbpGpksrjThe Hospitals Of Providence Sierra CampusComment on above:Performed By: #### BMP #### [facility] ([address] [address] VIRCO2 [Moles/Vol]24 mmol/YXiyslr84-09GsoVgeagf [facility] HospitalComment on above:Performed By: #### BMP #### [facility] ([address] [address] VIRCreatinine [Mass/Vol]0.81 mg/dLNormal0.40-1.00ProThe Hospitals Of Providence Sierra CampusComment on above:Result Comment: METHOD TRACEABLE TO IDMS STANDARDPerformed By: #### BMP #### [facility] ([address] [address] VIRGFR/1.73 sq M.predicted among non-blacks MDRD (S/P/Bld) [Vol rate/Area]83 mL/min/{1.73_m2}Normal>=60ProThe Hospitals Of Providence Sierra CampusComment on above:Result Comment: eGFR not reported due to non-numeric value for Creatinine. Reported eGFR is based on the CKD-EPI 2020 equation that does not use a race coefficient.Performed By: #### BMP #### [facility] ([address] [address] VIRGlucose [Mass/Vol]215 mg/mBPtud61-32KzbFstvqqThe Hospitals Of Providence Sierra CampusComment on above:Performed By: #### BMP #### [facility] ([address] [address] VIRPotassium [Moles/Vol]4.5 mmol/LNormal3.5-5.0ProThe Hospitals Of Providence Sierra CampusComment on above:Performed By: #### BMP #### [facility] ([address] [address] VIRSodium [Moles/Vol]136 mmol/DDrcuoz811-665WwmWltnfi [facility] HospitalComment on above:Performed By: #### BMP #### [facility] [address] VIRUrea nitrogen [Mass/Vol]17 mg/dLNormal5-27ProThe Hospitals Of [facility] Sierra CampusComment on above:Performed By: #### BMP #### [facility] ([address] [address] VIRCBC WITH AUTO DIFFERENTIALon 35-03-2974HKSRRGEGU ABSOLUTE COUNT (10*3/UL) BY AUTOMATED COUNT0.0 10*3/uLNormal0.0-0.2ProMedKindred Hospital - San Francisco Bay AreaComment on above:Performed By: #### CBCA #### [address] [address] VIRBASOPHILS RELATIVE PERCENT BY AUTOMATED COUNT0.5 %Normal [facility] HospitalComment on above:Performed By: #### CBCA #### [address] [address] VIRCELLAVISION DIFFERENTIAL TYPEAUTOMATED DIFFERENTIALNormal [facility] HospitalComment on above:Performed By: #### CBCA #### [facility] ([address] [address] VIREosinophils (Bld) [#/Vol]0.2 10*3/uLNormal0.0-0.4[facility] HospitalComduane l. waters hospital on above:Performed By: #### CBCA #### [facility] ([address] [address] VIREOSINOPHILS RELATIVE PERCENT BY AUTOMATED COUNT3.5 %Normal [facility] HospitalComment on above:Performed By: #### CBCA #### [address] [address] VIRErythrocyte distribution width (RBC) [Ratio]13.6 %Normal 11.5-15ProThe Hospitals Of Providence Sierra CampusComment on above:Performed By: #### CBCA #### [facility] ([address] [place] [address] VIRHematocrit (Bld) [Volume fraction]40.9 %Qegzoc57-17 [facility] HospitalComment on above:Performed By: #### CBCA #### [facility] ([address] [place] [address] VIRHemoglobin (Bld) [Mass/Vol]14.0 g/uVRrouou76.7-15.5 [facility] HospitalComment on above:Performed By: #### CBCA #### [facility] ([address] [place] [address] VIRLYMPHOCYTES ABSOLUTE COUNT (10*3/UL) BY AUTOMATED COUNT1.4 10*3/uLNormal1.0-3.5PVeterans Health AdministrationComment on above:Performed By: #### CBCA #### [facility] ([address] [address] VIRLYMPHOCYTES RELATIVE PERCENT BY AUTOMATED COUNT21.6 %Normal [facility] HospitalComment on above:Performed By: #### CBCA #### [facility] ([address] [place] [address] VIRMCH (RBC) [Entitic mass]29.0 pmZwvqdu20-63EewYhjckvProMedica Memorial HospitalComment on above:Performed By: #### CBCA #### [facility] ([address] [place] [address] VIRMCHC (RBC) [Mass/Vol]34.1 g/uNRzomsy75-95ZltXfnyxzThe Hospitals Of Providence Sierra CampusComment on above:Performed By: #### CBCA #### [facility] ([address] [place] [address] VIRMCV (RBC) [Entitic vol]85 oHLgwrob23-506EzkMxhexz [facility] HospitalComment on above:Performed By: #### CBCA #### [facility] ([facility]) [address] [place] [address] [place] [address] VIRMONOCYTES ABSOLUTE COUNT (10*3/UL) BY AUTOMATED COUNT0.7 10*3/uLNormal0.0-0.9[facility] HospitalComment on above:Performed By: #### CBCA #### [facility] ([facility]) [address] [place] [address] [place] [address] VIRMONOCYTES RELATIVE PERCENT BY AUTOMATED COUNT11.0 %Normal [facility] HospitalComment on above:Performed By: #### CBCA #### [facility] ([address] [place] [address] VIRNEUTROPHILS ABSOLUTE COUNT BY AUTOMATED COUNT4.2 10*3/uL Normal1.5-6.6[facility] HospitalComment on above:Performed By: #### CBCA #### [facility] ([address] [place] [address] VIRNEUTROPHILS RELATIVE PERCENT BY AUTOMATED COUNT63.4 %Normal [facility] HospitalComment on above:Performed By: #### CBCA #### [facility] ([address] [place] [address] VIRPlatelet mean volume (Bld) [Entitic vol]9.5 fLNormal7-12 [facility] HospitalComment on above:Performed By: #### CBCA #### [facility] ([address] [place] [address] VIRPlatelets (Bld) [#/Vol]238 10*3/fQCrqgtd221-140OiqDcsrgk [facility] HospitalComment on above:Performed By: #### CBCA #### [facility] ([address] [place] [address] VIRRBC COUNT4.81 X10E12/LNormal3.8-5.2[facility] HospitalComment on above:Performed By: #### CBCA #### [facility] ([address] [place] [address] VIRWBC (Bld) [#/Vol]6.6 10*3/uLNormal4-11ProThe Hospitals Of Providence Sierra CampusComment on above:Performed By: #### CBCA #### [facility] ([facility]) [address] [place] [address] [place] [address] VIRTROPONIN I, HIGH SENSITIVITY 0 HOURon 15-69-1462DRYNJPZB I, HIGH SENSITIVITY<^2Normal<16ProThe Hospitals Of Providence Sierra CampusComment on above: Performed By: #### TNIHS0 #### [facility] ([address] [place] [address] VIRXR CHEST 1 VWon 95-76-6852WR CHEST 1 VWXR CHEST 1 VW Single view chest History:chest pain Difficulty breathing, shortness of breath Comparison: None Findings: Single portable view of the chest. No focal opacity, effusion or pneumothorax. Cardiomediastinal silhouette is within normal limits. Impression: No definitive acute cardiopulmonary process. Finalized by Abilio Hearn MD on 12/16/2024 9:59 AMNormalProThe Hospitals Of Providence Sierra CampusUrine Cultureon 65-75-2089Goivefmj identified Cx Nom (U)Urine Culture Results >100,000 col/ml Mixed Baylee with Mixed Gram Neg Bacilli PERFORMED BY: [place] [address] PATHOLOGIST MULTI NEEDLE MACHINE OPERATOR RUBIA ZUNIGA M.D.NormalThe Scionhealth Physician GroupComment on above: Performed By: #### CUU #### [place] [address] USAUrine cultureOrdered By: Jaja Parry on 74-13-0534Dfrtjxtl identified Cx Nom (U)[facility] HospitalBacteria identified Cx Nom (U)[facility] HospitalUrine Cultureon 25-11-7691Nuuhouwl identified Cx Nom (U)>100,000 colonies/ml mixed bacterial skin contaminants 2 Days PERFORMED BY: [facility] [address] [place] [address] PATHOLOGIST MULTI NEEDLE MACHINE OPERATOR RUBIA ZUNIGA M.D.[facility] Physician GroupComment on above: Performed By: #### CUU #### [facility] [address] [place] [address] USAUrine cultureOrdered By: Jonathan العلي on 27-76-2442Nupveglo identified Cx Nom (U)2 DaysLima Memorial HospitalUrine Cultureon 48-51-8945Ankvybgw identified Cx Nom (U)ORGANISM: Escherichia coli (O:ESCCOL) [place] Count >100,000 Aerobic MADAN Charge (NMIC56) SUSCEPTIBILITY ORGANISM: O:ESCCOL ANTIBIOTIC INTERPRETATION MADAN Amikacin S <16 Amoxacillin/K Clavulanate R >16 Ampicillin R >16 Ampicillin/Sulbactam I 1616/8 Aztreonam S <4 Cefazolin I 16 Cefepime S <2 Ceftazidime S <1 Ceftazidime/Avibactam S <4 Ceftolozane/Tazobactam S <2 Ceftriaxone S <1 Cefuroxime S 8 Ciprofloxacin S <0.25 Ertapenem S <0.5 Gentamicin S <2 Levofloxacin S <0.5 Meropenem S <1 Meropenem/Vaborbactam S <2 Nitrofurantoin S <32 Piperacillin/Tazobactam S <8 Tetracycline S <4 Tigecycline S <2 Tobramycin S <2 Trimethoprim/Sulfamethoxazole S <0.5 S = SUSCEPTIBLE I = [...] RESISTANT TO ALL B-LACTAM DRUGS. PERFORMED BY: [place] [address] PATHOLOGIST MULTI NEEDLE MACHINE OPERATOR RUBIA ZUNIGA M.D.[facility] Physician GroupComment on above: Performed By: #### CUU #### [facility] [address] [place] [address] USAUrine cultureOrdered By: Vielka Galeano on 02-44-3927Mousxyci identified Cx Nom (U)Escherichia coliAbnormalLima Memorial Hospital X-ray reportOrdered By: Dann Harris on 61-03-5055Ukynt reportZANESVILLE [facility] [address] [place] [address] XRay Report Signed Patient: Rj Pinzon MR#: [id number] : 1965 Acct:[id number] Age/Sex: 58 / F ADM Date: 5 Loc: [facility] [place] [facility] Room: Type: [facility] Attending Dr: Gregg Nassar MD Copies [...] Harris M.D. 08/30/2024 4:59 PM Dictation Location: [place] [address] Transcribed By: [facility] 08/30/241658 Dictated By: Dann Harris DO 08/30/241657 Signed By: 08/30/24 165 Lima Memorial HospitalXR knee LT 2Von 59-07-2794SX knee LT 2V [facility] [address] [place] [address] XRay Report Signed Patient: Rj Pinzon MR#: [id number] : 1965 Acct:[id number] Age/Sex: 58 / F ADM Date: 08/30/24 Loc: [facility] [place] Room: Type: [facility] Attending Dr: Gregg Nassar MD Copies [...] Harris M.D. 08/30/2024 4:59 PM Dictation Location: [place] [address] Transcribed By: [facility] 08/30/24 1659 Dictated By: Dann Harris DO 08/30/24 1658 Signed By: 08/30/24 1659[facility] Physician GroupMRI KNEE LT WO CONon 02-22-2022 MRI KNEE LT WO CONEXAMINATION: MRI KNEE LT WO CON HISTORY: Pain [...] Electronically authenticated by: NOHEMY MARCOS Date: 2022-02-22 08:[address] [place], [place] [address]XR knee LT 4V*on 02-14-3187FG knee LT 4V*[facility] [employer] Other XR knee LT 4V*[facility] [employer] Other XR knee LT 4V*[address] [place] [address] [employer] Other XR knee LT 4V*[place] [address]Sdedj [employer] Other XR knee LT 4V*[facility] [employer] Other XR knee LT 4V*[facility] [employer] Other XR knee LT 4V*Patient: Rj Pinzon MR#: [id number] [facility] [employer] Other XR knee LT 4V*[id number] Other XR knee LT 4V*: 1965 Acct:[id number] [employer] Other XR knee LT 4V*Age/Sex: 56 / F ADM Date: 12/12/21[facility] [employer] Other XR knee LT 4V*Loc: XDUCLY Room: [facility] Other XR knee LT 4V*Attending Dr: Liliya Fletcher NPMISSOU[facility] CENTERKl[facility] Other XR knee LT 4V*Copies to: Liliya Fletcher NPMISSOURI DELTA MEDICAL CENTERKloneworld Other XR knee LT 4V*Ordering Provider: HAKEEM Lim [facility] [employer] Other XR knee LT 4V*Date of Service: 12/12/21[facility] [employer] Other XR knee LT 4V* XR/XR knee LT 4V*: Acute pain of left kneeNouniversity health truman medical center [employer] Other XR knee LT 4V*XR knee LT 4V* 12/12/2021 12:41 [facility] [employer] Other XR knee LT 4V*SIGNS AND SYMPTOMS: Left knee pain after fallGolden Eagle [employer] Other XR knee LT 4V*PROTOCOL: Frontal, lateral, and oblique radiographs of the left kneeGolden Eagle [employer] Other XR knee LT 4V*COMPARISON: [facility] [employer] Other XR knee LT 4V*FINDINGS:[employer] Other XR knee LT 4V*There is mild narrowing of the patellofemoral joint space with minimal narrowing of the medialNouniversity health truman medical center [employer]oom[employer] Other XR knee LT 4V*weightbearing joint space. There is no evidence of fracture. No dislocation or subluxation. [facility] [employer] Other XR knee LT 4V*joint effusion. No significant soft tissue swelling.[employer] Other XR knee LT 4V* XR/XR knee LT 4V* [employer] Other XR knee LT 4V*IMPRESSION:Tern Other XR knee LT 4V*No acute bony injury.[employer] Other XR knee LT 4V*Mild degenerative changes are noted, as above.[employer] Other XR knee LT 4V*Impression dictated by: Bernardo Camacho M.D.12/12/2021 12:59 PMNNass[facility] [employer] Other XR knee LT 4V*Dictation Location: [id number] [place] [employer] Other XR knee LT 4V*Transcribed By: [facility] 12/12/[address] [place] [address] [employer] Other XR knee LT 4V*Dictated By: Bernardo Camacho II, MD 12/12/[address] [place] [address] [employer] Other XR knee LT 4V*Signed By:[facility] [employer] Other XR knee LT 4V*12/12/21 125[facility] [employer] Other [id number]-FiZ-2 (COVID-19) RNA ALYSSA+probe Ql (Resp)on 82-44-5022ICSL-CoV-2 (COVID-19) RNA ALYSSA+probe Ql (Unsp spec)PositiveOdessa Memorial Healthcare Center [employer] Other t4 LABCORPon 22-86-4131H2 [Mass/Vol]7.2 ug/dLNormal 4.5-12.0The [facility] City HospitalComment on above:Performed By: #### T4LC #### [facility] [address] [place] [address] Dr. Chana Bernal 25-[place] LABCORPon 45-32-3227Cuurbdd D, 25-Fjvidwo19.8 ng/mL Hfxwxx52.0-100.0The [facility] City HospitalComment on above:Result Comment: Vitamin D deficiency has been defined by the Barto of Medicine and an Endocrine Society practice guideline as a level of serum 25-OH vitamin D less than 20 ng/mL (1,2). The Endocrine Society went on to further define vitamin D insufficiency as a level between 21 and 29 ng/mL (2). 1. IOM ([place]arto of Medicine). 2010. Dietary reference intakes for calcium and D. [place]: The National Academies Press. 2. Sundar CORDERO, [place], Kimberly GIBSON, et al. Evaluation, treatment, and prevention of vitamin D deficiency: an Endocrine Society clinical practice guideline. JCEM. 2010; 96(7):1911-30.Performed By: #### VITADLC #### [facility] [address] [place] [address] [address] Chana Hua AUTO DIFFon 10-24-6742ZJIB #0.0 103/ulNormal0.0-0.1The [facility] City HospitalComment on above:Performed By: #### CBC #### [facility] [address] [place] [address] [address] Chana CeballosBasophils/100 WBC (Bld)0.3 %Normal0.2-2.0[facility] Comment on above:Performed By: #### CBC #### [facility] [address] [place] [address] Dr. Chana Galloway #0.2 103/ulNormal0.0-0.7The [facility] HospitalComment on above: Performed By: #### CBC #### [facility] [address] [place] [address] [address] Chana Sylvesterosinophils/100 WBC (Bld)2.1 %Normal0.9-7.0[facility] Comment on above:Performed By: #### CBC #### [facility] [address] [place] [address] [address] Chana Sylvesterrythrocyte distribution width (RBC) [Ratio]12.3 %Xvmptp97.0-15.0 The [facility] City HospitalComment on above:Performed By: #### CBC #### [facility] [address] [place] [address] Dr. Chana CeballosHematocrit (Bld) [Volume fraction]41.7 %Vpqbxs38.0-48.0[facility]stownComment on above:Performed By: #### CBC #### [facility] [address] [place] [address] [address] Chana CeballosHemoglobin (Bld) [Mass/Vol]13.6 g/zNMhxpua60.0-16.0The [facility] HospitalComment on above:Performed By: #### CBC #### [facility] [address] [place] [address] Dr. Chana King #0.04 10e3/ulCritically high0.00-0.03The [facility] Comment on above:Performed By: #### CBC #### [facility] [address] [place] [address] Dr. Chana King %0.6 %Critically high0.0-0.5The [facility] HospitalComment on above:Performed By: #### CBC #### [facility] [address] [place] [address] Dr. Chana Kramer #1.4 103/ulNormal1.2-3.8The [facility] HospitalComment on above:Performed By: #### CBC #### [facility] [address] [place] [address] Dr. Chana Salinashocytes/100 WBC (Bld)19.8 %Critically low20.5-60.0The [facility] HospitalComment on above:Performed By: #### CBC #### [facility] [address] [place] [address] Dr. Chana Kendrick DIFF REQNONormalThe [facility] City HospitalComment on above: Performed By: #### CBC #### [facility] [address] [place] [address] Dr. Chana Petit (RBC) [Entitic mass]30.3 emBndbqa56.7-34.0The [facility] HospitalComment on above:Performed By: #### CBC #### [facility] [address] [place] [address] Dr. Chana Petit (RBC) [Mass/Vol]32.6 g/rOEqiajp80.9-35.2The [facility] HospitalComment on above:Performed By: #### CBC #### [facility] [address] [place] [address] Dr. Chana Petit (RBC) [Entitic vol]92.9 nYCjrzng42.0-99.0The [facility] HospitalComment on above:Performed By: #### CBC #### [facility] [address] [place] [address] Dr. Chana Blanco #0.7 103/ulNormal0.3-0.8The [facility] HospitalComment on above:Performed By: #### CBC #### [facility] [address] [place] [address] Dr. Chana Balderramaocytes/100 WBC (Bld)10.2 %Normal1.7-12.0The [facility] Comment on above:Performed By: #### CBC #### [facility] [address] [place] [address] Dr. Chana Garcia #4.7 103/ulNormal1.4-6.5The [facility] HospitalComment on above:Performed By: #### CBC #### [facility] [address] [place] [address] Dr. Chana Mojicautrophils/100 WBC (Bld)67.0 %Fhagcv97.0-75.0The [facility] HospitalComment on above:Performed By: #### CBC #### [facility] [address] [place] [address] Dr. Chana Dugan mean volume (Bld) [Entitic vol]11.0 fLNormal9.5-13.5The [facility] HospitalComment on above:Performed By: #### CBC #### [facility] [address] [place] [address] Dr. Chana MandujanoT212 103/nfTwqysv820-178Agb [facility] HospitalComment on above: Performed By: #### CBC #### [facility] [address] [place] [address] Dr. Chana MazaBC7.1 103/ulNormal4.0-11.0The [facility] HospitalComment on above: Performed By: #### CBC #### [facility] [address] [place] [address] Dr. Chana Pereira T3on 28-46-3301GUCB T32.32 pg/mlLNormal2.18-3.98[facility] on above:Performed By: #### TSH, CMP, LIPID, FT3 #### [facility] [address] [place] [address] [address] Chana CeballosGLYCOHEMOGLOBIN A1Con 26-70-4842UGQ RECOMMENDATIONSEE BELOWNormal [facility]stownComduane l[facility] hospital on above:Result Comment: ADA RECOMMENDED LIMIT 4.0 - 6.0 ADA THERAPEUTIC TARGET < 7.0 ACTION SUGGESTED > 7.0Performed By: #### A1C #### [facility] [address] [address] [address] Chana CeballosGlucose [Mass/Vol]169 mg/dLNoSelect Medical Specialty Hospital [facility], IncComduane l. waters hospital on above:Performed By: #### A1C #### [facility] [address] [address] [address] Chana CeballosHbA1c (Bld) [Mass fraction]7.5 %Critically high4.5-6.2The [facility] City HospitalComment on above:Performed By: #### A1C #### [facility] [address] [address] [address] Chana CeballosLIPID PROFILEon 64-71-9366VTGK-HDL RATIO NORMSEE [facility] HamiltonComduane l[facility] hospital on above:Result Comment: 3.3 - 4.4 LOW RISK 4.4 - 7.1 AVERAGE RISK 7.1 - 11.0 MODERATE RISK >11.0 HIGH RISKPerformed By: #### TSH, CMP, LIPID, FT3 #### [facility] [address] [address] [address] Chana CeballosCholesterol [Mass/Vol]217 mg/dLCritically high<=200The [facility] on above:Performed By: #### TSH, CMP, LIPID, FT3 #### [facility] [address] [address] [address] Chana CeballosCholesterol in HDL [Mass/Vol]38 mg/dLCritically bza94-97Ofc [facility] on above:Performed By: #### TSH, CMP, LIPID, FT3 #### [facility] [address] [address] [address] Chana CeballosCholesterol in LDL [Mass/Vol]137.4 mg/dLWyandot Memorial Hospital on above:Performed By: #### TSH, CMP, LIPID, FT3 #### [facility] [address] [address] [address] Chana Shepard.total/Cholesterol in HDL [Mass ratio]5.7 {ratio} NormalThe [facility] on above:Performed By: #### TSH, CMP, LIPID, FT3 #### [facility] [address] [address] [address] Chana Peralta NORMAL> or = 60 mg/dl - LOW CARDIOVASCULAR RISK <40 mg/dl - HIGH CARDIOVASCULAR RISKAdams County HospitalComduane l. waters hospital on above:Performed By: #### TSH, CMP, LIPID, FT3 #### [facility] [address] [address] [address] Chana Hernández CALC NORMALSEE BELOWAdams County HospitalComment on above:Result Comment: <100 mg/dl OPTIMAL 100 - 129 mg/dl NEAR OR ABOVE OPTIMAL 130 - 159 mg/dl BORDERLINE HIGH 160 - 189 mg/dl HIGH >190 mg/dl VERY HIGH Performed By: #### TSH, CMP, LIPID, FT3 #### [facility] [address] [address] [address] Chana CeballosTriglyceride [Mass/Vol]208 mg/dLCritically high<=150The [facility] on above:Performed By: #### TSH, CMP, LIPID, FT3 #### [facility] [address] [address] [address] Chana CeballosVLDL CALC41.6 mg/dLWyandot Memorial Hospital on above: Performed By: #### TSH, CMP, LIPID, FT3 #### [facility] [address] [place] [address] Dr. Chana CeballosPROF 14(COMP METB)on 43-87-1747Ovowxim [Mass/Vol]4.2 g/dLNormal 3.4-5.0The [facility] HospitalComment on above:Performed By: #### TSH, CMP, LIPID, FT3 #### [facility] [address] [place] [address] Dr. Chana CeballosAlbumin/Globulin [Mass ratio]1.2 {ratio}NormalThe [facility] City HospitalComment on above:Performed By: #### TSH, CMP, LIPID, FT3 #### [facility] [address] [place] [address] Dr. Chana Benoit [Catalytic activity/Vol]61 U/UOsuxwf32-697Rsy [facility] HospitalComment on above:Performed By: #### TSH, CMP, LIPID, FT3 #### [facility] [address] [place] [address] Dr. Chana Doyle [Catalytic activity/Vol]29 U/MWassmm98-76Wcf [facility] HospitalComment on above:Performed By: #### TSH, CMP, LIPID, FT3 #### [facility] [address] [place] [address] Dr. Chana Jauregui gap [Moles/Vol]14.3 mmol/LNormalSelect [facility] Comment on above:Performed By: #### TSH, CMP, LIPID, FT3 #### [facility] [address] [place] [address] Dr. Chana Boswell [Catalytic activity/Vol]17 U/YZubggq93-59Upo [facility] Medical Centerment on above:Performed By: #### TSH, CMP, LIPID, FT3 #### [facility] [address] [place] [address] Dr. Chana CeballosBilirubin [Mass/Vol]0.2 mg/dLNormal0.2-1.0The [facility] Comment on above:Performed By: #### TSH, CMP, LIPID, FT3 #### [facility] [address] [place] [address] Dr. Chana CeballosCalcium [Mass/Vol]9.0 mg/dLNormal8.5-10.1[facility] Comment on above:Performed By: #### TSH, CMP, LIPID, FT3 #### [facility] [address] [address] [address] Chana CeballosChloride [Moles/Vol]103 mmol/KWsdtgd41-967Rng [facility] Comment on above:Performed By: #### TSH, CMP, LIPID, FT3 #### [facility] [address] [place] [address] Dr. Chana CeballosCO2 [Moles/Vol]25.1 mmol/WLzuyuc29.0-32.0The [facility] Comment on above:Performed By: #### TSH, CMP, LIPID, FT3 #### [facility] [address] [place] [address] Dr. Chana CeballosCreatinine [Mass/Vol]0.93 mg/dLNormal0.55-1.02[facility] YoungstownComment on above:Performed By: #### TSH, CMP, LIPID, FT3 #### [facility] [address] [place] [address] Dr. Chana SylvesterGFR-AF CITIZEN OF [place]>60Normal>=60The [facility] City HospitalComment on above:Performed By: #### TSH, CMP, LIPID, FT3 #### [facility] [address] [place] [address] Dr. Chana Garces-NON AF CITIZEN OF [place]>60Normal>=60The [facility] HospitalComment on above:Performed By: #### TSH, CMP, LIPID, FT3 #### [facility] [address] [place] [address] Dr. Chana CeballosGlobulin (S) [Mass/Vol]3.4 g/dLNormalThe [facility] HospitalComment on above:Performed By: #### TSH, CMP, LIPID, FT3 #### [facility] [address] [place] [address] Dr. Chana CeballosGlucose [Mass/Vol]198 mg/dLCritically vnsh63-256Vxf [facility] HospitalComment on above:Performed By: #### TSH, CMP, LIPID, FT3 #### [facility] [address] [place] [address] Dr. Chana CeballosPotassium [Moles/Vol]4.4 mmol/LNormal3.5-5.1The [facility] Comment on above:Performed By: #### TSH, CMP, LIPID, FT3 #### [facility] [address] [place] [address] Dr. Chana CeballosProtein [Mass/Vol]7.6 g/dLNormal6.4-8.2The [facility] Comment on above:Performed By: #### TSH, CMP, LIPID, FT3 #### [facility] [address] [place] [address] Dr. Chana CeballosSodium [Moles/Vol]138 mmol/QBiirqz248-148Jid [facility] Comment on above:Performed By: #### TSH, CMP, LIPID, FT3 #### [facility] [address] [place] [address] Dr. Chana CeballosUrea nitrogen [Mass/Vol]18.0 mg/dLNormal7.0-18.0The [facility] HospitalComment on above:Performed By: #### TSH, CMP, LIPID, FT3 #### [facility] [address] [place] [address] Dr. Chana CeballosUrea nitrogen/Creatinine [Mass ratio]19.4 mg/mgNormalThe [facility] HospitalComment on above:Performed By: #### TSH, CMP, LIPID, FT3 #### [facility] [address] [place] [address] Dr. Chana Caban 05-72-5958VUE4.219 uIU/mLNormal0.358-3.740[facility] - YoungstownComment on above:Performed By: #### TSH, CMP, LIPID, FT3 #### [facility] [address] [place] [address] Dr. Chana Ceballos Vital Signs Date TimeVital SignValuePerforming HjgfgolhpLjnndoym38-89-7807 10:07-0400Body flmowl614.6 cmAdrien Jacques DPM Work Phone: NOAlvin J. Siteman Cancer CenterVepmatygyh04-61-6067 10:07-0400Body mass index (BMI) [Ratio]38.74 kg/s9XowebmabAdrien Jacques DPM Work Phone: [facility]'sXwknwypmjm43-79-0160 10:07-0400Body qksufn282.86 kgAdrien Jacques DPM Work Phone: [facility]'sPncupauzub26-99-9764 10:07-0400Respiratory rate18 /minAdrien Jacques DPM Work Phone: [facility]'sHqsogagtli86-18-6404 11:33-0400Body temperature 98.4 [degF]Dolly Hadley DDS Work Phone: [facility]07-29-2025 11:33-0400Diastolic blood ueqwkzep698 mm[Hg]Dolly Hadley DDS Work Phone: [phone]07-29-2025 11:33-0400Systolic blood mm[Hg]Dollymanuel Hadley DDS Work Phone: [facility]06-10-2025 10:45-0400Diastolic blood nkgaptvj72 mm[Hg]Jaja Parry MD Work Phone: 1([phone])820-[address] [place], [place] 0809506-10-2025 10:45-0400 Heart rate75 /Eda Parry MD Work Phone: [phone])631-[address] [place], [place] 0809506-10-2025 10:45-0400 Respiratory rate16 /Eda Parry MD Work Phone: 1(336)563-[address] [place], [place] 0809506-10-2025 10:45-0400 SaO2% (BldA) [Mass fraction]93 %Jaja Parry MD Work Phone: [facility]06-10-2025 10:45-0400 Systolic blood axvfghjo508 mm[Hg]Jaja Parry MD Work Phone: 1(255)538-[address] [place], [place] 0809506-10-2025 10:12-0400 Inhaled oxygen flow rate3 L/Eda Parry MD Work Phone: [facility]06-10-2025 09:26-0400 Body nqrhpo160.64 cmJaja Parry MD Work Phone: [phone])913-[address] [place], [place] 0809506-10-2025 09:26-0400 Body .05 kgJaja Parry MD Work Phone: [phone]05-29-2025 10:10-0400 Body fxwywa359.6 cmAdrien Sawyer DPM Work Phone: [facility] John'sLhuiazjacu33-01-6641 10:10-0400Body mass index (BMI) [Ratio]38.74 kg/n8Pekklhdw Sawyer DPM Work Phone: [facility] John'sFwweqnghtl75-34-9323 10:10-0400Body cpwefn153.86 kgAdrien Sawyer DPM Work Phone: [facility] John'sBbqxvznjmn44-30-2209 10:10-0400Respiratory rate18 /minAdrien Jacques DPM Work Phone: [facility] John'sZjtfkpsyae60-32-2494 11:25-0400Diastolic blood kfhzreup58 mm[Hg]MD Jaja Parry Work Phone: 1([phone])381-[address] [place], [place] 0[address]505-28-2024 11:25-0400 Heart rate82 /minMD Jaja Parry Work Phone: [phone]05-28-2024 11:25-0400 Respiratory rate16 /minMD Jaja Parry Work Phone: [phone]05-28-2024 11:25-0400 SaO2% (BldA) [Mass fraction]99 %MD Jaja Parry Work Phone: 1(925)528-[address] [place], [place] 0809505-28-2024 11:25-0400 Systolic blood jidtdsyi644 mm[Hg]MD Jaja Parry Work Phone: [phone]05-28-2024 10:51-0400 Inhaled oxygen flow rate3 L/minMD Jaja Parry Work Phone: [phone]05-28-2024 09:56-0400 Body onnfmf874.64 cmMD Jaja Hoy Work Phone: [facility]05-28-2024 09:56-0400 Body wdjgek447.86 kgMD Jaja Hoy Work Phone: [facility]05-03-2024 08:47-0400 Body bkkayb356.64 cmLima [facility] Hospital05-03-2024 08:47-0400Body mass index (BMI) [Ratio]38.4 kg/x3QkyeburgkLima Memorial Hospital05-03-2024 08:47-0400Body mzybzv986 kgLima Memorial Hospital03-25-2024 08:58-0400Body yioalt091.64 cmL[facility] Hospital03-25-2024 08:58-0400Body mass index (BMI) [Ratio]38.7 kg/w6QfsyhznslLima Memorial Hospital03-25-2024 08:58-0400Body cfcosh627.94 kgLima Memorial Hospital 07-28-2022 08:15-0400Body .64 cmJustdiane Gu Other [employer] Other 06-14-2023 08:15-0400Body mass index (BMI) [Ratio] 38.73 kg/s6Nhadwy Riccardo Other 7digitalun[facility] [employer] Other 06-14-2023 08:15-0400Body tbtjxy370.86 kgJustin Riccardo Other [employer] Other 10-29-2022 13:05-0400Body mfrves606.64 cmPamela Justine Other [employer] Other 10-29-2022 13:05-0400Body mass index (BMI) [Ratio] 35.51 kg/g1Vvfuwt Justine Other [employer] Other 10-29-2022 13:05-0400Body dgbfeaxocmu98.9 [degF]Liliya Fletcher Other [employer] Other 10-29-2022 13:05-0400Body xtapfv07.79 kgLiliya Fletcher Other [employer] Other 10-29-2022 13:05-0400Diastolic blood djnetbai99 mm[Hg] Liliya Fletcher Other [employer] Other 10-29-2022 13:05-0400Respiratory rate18 /minLiliya Fletcher Other [employer] Other 10-29-2022 13:05-5992IoQ4% (BldA) [Mass fraction]99 % Liliya Fletcher Other [employer] Other 10-29-2022 13:05-0400Systolic blood jbxzhujc422 mm[Hg] Liliya Fletcher Other [employer] Other 08-28-2022 12:30-0400Body eozwmr919.64 cmSteptalia Flannery Other [employer] Other 08-28-2022 12:30-0400Body mass index (BMI) [Ratio] 36.31 kg/n5KjdkrchuoDorys Flannery Other [employer] Other 08-28-2022 12:30-0400Body spumagvrmli31 [degF] Dorys Flannery Other [employer] Other 08-28-2022 12:30-0400Body zdeqlj072.06 kgStapril Flannery Other Nort [employer] Other Encounters Encounter DateEncounter TypeCare ProviderFacilityStart: 12-18-2024 End: 11-29-4021uvnozanxpaHKX [facility] BCStart: 12-18-2024 End: 40-41-6620Mcjfsiy encounter procedureThomas Feltosmel Kapoor MD[facility] Work Phone: Start: 12-16-2024 End: 89-83-4224Dxstaxrbf department patient visitJAJA [facility]: 11-19-2024 End: 29-57-8787kncdtjntqtJlrifie M Hoy MD Work Phone: [facility] Work Phone: Start: 11-19-2024 End: 79-02-2752Dmjjioo encounter procedureThomas Cesario [facility]ANC[facility] Work Phone: Start: 11-08-2024 End: 61-46-2345ktsjlfyrywQmqfebv M Hoy MD Work Phone: [facility] Work Phone: Start: 11-08-2024 End: 32-13-6984Bcrfsry encounter procedureThomas Cesario SANCHEZUn[facility] Work Phone: Start: 10-31-2024 End: 90-59-1013iivygjnszeZxritmk M Hoy MD Work Phone: [facility] Work Phone: Start: 10-31-2024 End: 36-29-5403Xglqmoi encounter procedureThomas Cesario [facility]ZUn[facility] Work Phone: Start: 10-22-2024 End: 98-61-9425wtomvqulirEiugtlu M Hoy MD Work Phone: [facility] Work Phone: Start: 10-22-2024 End: 17-57-1374Vcoeucik ReferredJaja Hanson MD-[facility] Start: 09-20-2024 End: 11-43-7540Tsqtna flowsAriellestephenbrittny Jacques DPM Work Phone: noMS CI PODIATRYStart: 09-20-2024 End: 17-94-3717Nhpcsk flowsArielledaniel Juwan Sawyer DPM Work Phone: noMS CI PODIATRYStart: 09-20-2024 End: 54-27-4552Jrljmtf encounter procedureAdrien Echeverria Sawyer DPM Work Phone: noms CI PODIATRYComment on above:Diabetes mellitus due to underlying condition with diabetic polyneuropathy, without long-term current use of insulin (HCC) (Primary Dx); Pain due to onychomycosis of toenails of both feet; Venous insufficiencyStart: 09-20-2024 End: 12-99-5991odgnbqjulkGNMWXESK A BROWNNot AvailableStart: 09-11-2024 End: 71-35-2950Vjowiyrno [facility] Work Phone: [facility]: 52-96-6204malwnvmdpdTuammSpencer Hospitaltart: 09-06-2024 End: 83-15-6919thduyynsfrUtsnvnm M Hoy MD Work Phone: [facility] Work Phone: Start: 09-06-2024 End: 56-81-5369Pgzpeboe ReferredSynicole العلي MD-[facility]Start: 09-05-2024 End: 66-38-8214cjjmvjnbueVqtvtxr M Hoy MD Work Phone: [facility] Work Phone: Start: 09-05-2024 End: 94-99-1936Ebbtdxju Rakel Galeano MD-LAB [facility] Start: 08-30-2024 End: 89-72-6701yddpqfawvvKfvvdft M Hoy MD Work Phone: [facility] Work Phone: Start: 08-30-2024 End: 01-48-9747Nnmuqna encounter procedureGregg Kapoor MD-[facility] Work Phone: Start: 08-27-2024 End: 05-52-8470Bqywdoqhv Mildred Hadley DDS Work Phone: Dental ClinicStart: 08-13-2024 End: 77-81-3477uhjwdeeqbwLshvmyu M Hoy MD Work Phone: [facility] Work Phone: Start: 08-13-2024 End: 01-70-3939Mnedtrn encounter procedureGregg Kapoor MD-[facility] Work Phone: Start: 32-77-4018Rsm-patient / Non-visitJaja Parry MD Work Phone: [facility] Work Phone: Start: 07-24-2024 End: 83-22-1617Lkvjrhodk to same day surgery Cori Parry MD Work Phone: [facility] Work Phone: Start: 07-24-2024 End: 06-86-7134ltlhtjsvzxWukcrxj M Hoy MD Work Phone: [facility] Work Phone: Start: 07-12-2024 End: 99-49-3330Qmagir flowsheetAdrien Jacques DPM Work Phone: noMS CI PODIATRYStart: 07-12-2024 End: 97-43-9758Yiyfex flowsheetAdrien Jacques DPM Work Phone: noMS CI PODIATRYStart: 07-12-2024 End: 77-98-0703Tgirfg outpatient new 30 minutesNicholas A Brown DPM Work Phone: NOQE CI PODIATRYComment on above:Venous insufficiency (Primary Dx); Diabetes mellitus due to underlying condition with diabetic polyneuropathy, without long-term current use of insulin ([facility]); Pain due to onychomycosis of toenails of both feetStart: 07-12-2024 End: 20-30-2053qourdqtjueIMBJDOFS A BROWNNot AvailableStart: 07-11-2024 End: 96-20-9377utnvlvledyCndqmitohProMedica Toledo Hospital Work Phone: Start: 07-11-2024 End: 90-31-8348Spkenbx encounter procedureScionhealth Physician Group-[facility] Work Phone: Start: 10-13-2023 End: 06-67-7443glxuuszvobWC Jaja M Hoy Work Phone: [facility] Work Phone: Start: 10-13-2023 End: 35-49-0674Rmcdchg encounter procedureMD Jaja Hoy Work Phone: [facility] Work Phone: Start: 08-01-2023 End: 89-85-7716dibtbwavatTK Jaja M Hoy Work Phone: [phone] [place] [address] Work Phone: Start: 08-01-2023 End: 80-98-3053Vstddbq encounter procedureMD Jaja Hoy Work Phone: [facility] Work Phone: Start: 55-50-7515Hfw-patient / Non-visitMD Jaja Hoy Work Phone: [facility] Work Phone: Start: 07-12-2023 End: 13-06-1448Zyqwteuph to same day surgery centerMD Jaja Hoy Work Phone: [facility] Work Phone: Start: 07-12-2023 End: 21-95-2138pbsuxbbvvtWN Jaja Hanson Holucas Work Phone: [facility] Work Phone: Start: 06-30-2023 End: 97-72-3229Bqstzlc encounter procedureMD Jaja Parry Work Phone: [facility] BC Work Phone: Start: 06-17-2023 End: 24-21-8788tbbdocpfbxPahnqsarbProMedica Toledo Hospital Work Phone: Start: 06-17-2023 End: 79-79-1975Xobqued encounter procedureScionhealth Physician Group-[facility] Work Phone: Start: 05-09-2023 End: 30-81-0603dyjtwjjjidYdiwiecpwProMedica Toledo Hospital Work Phone: Start: 05-09-2023 End: 58-99-8030Plyzcrb encounter procedureScionhealth Physician Group-[facility] Work Phone: Start: 07-28-2022 End: 17-31-5194bxdgzozeepZiszew Riccardo Other Tern Other Start: 32-87-2978Auvsuc outpatient visit 25 minutes Mark Cheryy OrthopedicsStart: 06-23-2022 End: 43-22-4236lijjcbpdkgRQ JAJA PARRY .Facility:I1Wzebj: 06-14-2022 End: 64-78-3486qlodvqqdqdNqzmti [facility] Other Tern Other Start: 51-97-4457Lhxxbpmon encounterJustdiane Duncan OrthopedicsStart: 03-09-2022 End: 83-87-9766zkhoosrxwaTHUAWU RICCARDOFacility:U3Ronwb: 02-22-2022 End: 30-90-5857qziotsbeqsCFDOEN CRAMERFacility:K0Vzthw: 90-83-7150Ocunxd outpatient visit 15 minutesPajamesa DymondFPG Urgent Care ClydeStart: 12-12-2021 End: 08-37-7279hluzfgigeqHM Jaja Parry Work Phone: [employer] Other Start: 12-12-2021 End: 82-30-8486Smecpuo encounter procedureMD Jaja Hoy Work Phone: [facility] Start: 2021 End: 12-46-2776blhbdhbpflFgigvdeti Prudencio Other [facility] Other Start: 65-16-5927Xqjltd outpatient new 20 minutes Dorys PughmcFPG Urgent Care ClydeStart: 95-65-8742Dxbvmthgv for general adult medical examination without abnormal findingsDR JAJA HOY .[facility]Start: 10-05-2021 End: 11-89-4592acwyejtkowNO JAJA HOY .Facility:X5Hynvu: 10-05-2021 End: 26-09-9556Tkwsqgsam for general adult medical examination without abnormal findingsDR JAJA HOY .Facility: Procedures DateProcedureProcedure DetailPerforming ClinicianStart: 14-76-0827Xlyga umang Parry MD Work Phone: Start: 09-11-2024 End: 77-57-4477Vfaxxekaflnau of current medicationsDolly Hadley DDS Work Phone: Start: 09-11-2024 End: 20-21-2767nlxq hygiene instructionsDolly Hadley DDS Work Phone: Start: 09-11-2024 End: 91-86-6523Kmki Op Visit DentalDolly Hadley DDCm Work Phone: Start: 87-56-8307Bbrfv Sheeba Parry MD Work Phone: Start: 94-01-3466Vyrbk Sheeba Parry MD Work Phone: [phone]-art: 64-32-4442D-ray of left knee, two viewsDomonica Parry MD Work Phone: [phone]-art: 08-27-2024 End: 18-76-5651Kevojzubazlvn of current medicationsDolly Hadley DDS Work Phone: Start: 08-27-2024 End: 08-85-2670fnirrjhzig, erupted tooth or exposed root (elevation and/or forceps removal)Dolly Leonie DDS Work Phone: Start: 08-27-2024 End: 85-89-8293iigt hygiene instructionsMebeata Leonie DDS Work Phone: Start: 52-59-0199Kfpnbtucgeywjw destruction of peripheral nerveJaja Parry MD Work Phone: Start: 76-30-5756G-ray of left kneeMD Jaja Parry Work Phone: [phone]-art: 31-08-7809Teivhtgvfczzfh destruction of peripheral nerveMD Jaja Parry Work Phone: Start: 90-82-2801Bswablcafu examination of kneeMD Jaja Hoy Work Phone: Plan of Treatment DateCare ActivityDetailAuthorStart: 10-72-9858Scivtkir identified in Urine by CultureUrine [facility] Hospitaltart: 61-34-9631Nfgsq [facility]tart: 53-34-6415Cmeulykvg vaccination Influenza Vaccine (#1)[facility] HealthcareStart: 91-57-5520Trybsof, [facility] Work Phone: Start: 09-20-2024 End: 41-10-8287Qcwepwv encounter procedureNOMS CI PODIATRYComment on above: Diabetes mellitus due to underlying condition with diabetic polyneuropathy, without long-term current use of insulin (HCC) (Primary Dx); Pain due to onychomycosis of toenails of both feet; Venous insufficiencyStart: 54-84-5027RtmoChildren'S Hospital [facility] Campus Work Phone: Start: 83-09-1978Rrpml [facility] Hospitaltart: 92-79-8267Yzscbabn identified in Urine by CultureUrine CultureGreene Memorial Hospitaltart: 88-53-8587Jnyevutw identified in Urine by CultureUrine CultureGreene Memorial Hospitaltart: 09-05-2024 Urine cultureGreene Memorial Hospitaltart: 66-67-9188V-ray of left knee, two viewsXR knee LT 2Memorial Hospitaltart: 51-41-3723GN Knee - left 2 [facility] Hospitaltart: 50-97-6331RnniChildren'S Hospital [facility] South Campus Work Phone: Start: 08-22-0363YcdlgcboeLima Memorial Hospital Start: 07-12-2024 End: 16-54-7676Uovxqem encounter xesfoftjs63/29/2025 11:00 AM EDT Office Visit [facility] [address] [address] Adrien Jacques DPM [address] [address] ArrivedNOLA CI PODIATRYComment on above:ArrivedStart: 81-34-4984R-ray of left kneeXR knee LT 2Memorial Hospitaltart: 36-81-5822UX Knee - left 2 [facility] Hospitaltart: 16-23-8829KnhevqanzGreene Memorial Hospitaltart: 49-27-9013Tfqiurqaj for malignant neoplasm of breastMammogramNOMS HealthcareStart: 88-95-5945Thbpyhulq for malignant neoplasm of cervixNOMS HealthcareStart: 69-59-1042Wmppjaezd for malignant neoplasm of cervixPap SmearNOMS HealthcareStart: 01-47-6727Fowwptwds for malignant neoplasm of colonNOMS HealthcarePatient EducationKnow your Meds Felter Non Diagnostic [facility] Work Phone: [facility]Holzer [facility] Work Phone: Immunizations Immunization DateImmunizationNotesCare TcqwrallUprnvgtp84-74-0739gcswzypvy virus vaccine, unspecified formulationAdrien Jacques DPM Work Phone: [facility] Payers DatePayer CategoryPayerPolicy ID2025MedicaidANTHEM BCBS MEDICAID [place] [id number] [id number]-xvu75-29-2063Vtgp-kzp [id number] Health InsuranceSANTA ANA [facility] [id number] [id number] 4dp42syt-3298-20p2-26c9-78dpk075281y84-94-7758Gcefaoh [id number] 2.840.1.409701.3.57[id number] 2.0.1.708526.3.57[id number] 2.0.1.493265.3.57[id number] 2.0.1.845112.3.57[id number] 2.0.1.524677.3.57[id number] 2.0.1.174242.3.57[id number] 2.0.1.638320.3.57[id number] 2..1.904727.3.579.2.499814-67-6519Wpwz Cross Blue [id number] 2..1.478825.19UnknownAnthem /[id number] gkni10rb-02v2-4c67-[id number] 2.0.1.514[id number] 2..1.453817.3.579.2.531 [id number] 2.0.1.9[id number] 2.0.1.9[id number] 2.0.1.894841.3.579.2.531 Social History DateTypeDetailFacilityStart: 01-17-2023 End: 91-58-9806Pph Assigned At BirthNorth [employer] Other Start: 38-03-6487Sxp Assigned At [facility] CenterFeSalem Regional Medical Centertart: 72-00-4101Xjsqnqx smoking status NHISOccasional tobacco smokerNOMS HealthcareHistory of tobacco useCigarette SmokerNOMS HealthcareStart: 01-17-2023 End: 99-96-0127Tqpjatv of Social functionNOMS HealthcareStart: 35-24-7433Zydxfnp Comment5 or less cigarettes/dayNOMS HealthcareStart: 30-21-0343Cld assigned at birthNot on fileNOLA HealthcareStart: 07-11-2024 End: 03-83-1051Qcfzhko smoking status NHISEx-smoker (finding)[facility]tart: 07-11-2024 End: 23-44-6731PfaSucveq (finding)[facility] Hospitaltart: 08-27-2024 End: 38-39-9511Cpypfeh smoking status NHISUnknown if ever smokedGordon Memorial Hospitaltart: 04-44-9028Stthvqs intakeAlcohol Use DetailsGordon Memorial Hospitalexual OrientationStraight or heterosexualChildren'S Hospital [facility] South Campus Work Phone: Start: 28-50-8310Kvjxrl OrientationBisexualChildren'S Hospital [facility] South Campus Goals DatePatient GoalDesired Activity/State Clinical Notes 2021 to 10-31-2024 Note Date & JayeUkjyNycqbxsm33-72-5322 Evaluation note* Diagnosis Onset Date Resolution Status Admit Date Chronic pain acuteSeptember 2024 10:41amFibromyalgiaacuteSeptember 2024 10:41am Osteoarthritis of left kneeacuteSeptember 2024 10:41amChronic painacute November 08, 2024 10:58amFibromyalgiaacuteSeptember 2024 10:58am Osteoarthritis of left kneeacuteSeptember 2024 10:58amChronic painacute November 19, 2024 10:08amFibromyalgiaacuteOctober 2024 10:08am Osteoarthritis of left kneeacuteOctober 2024 10:08amChronic painacute November 2024 1:34pmFibromyalgiaacuteNovember 2024 1:34pm Osteoarthritis of left kneeacuteNov2024 1:34pm [facility] Work Phone: 1([phone]) 161-858308-07-2025 History of Present illness Narrative* Adrien Jacques, DPM - 09/20/2024 10:20 AM EDT Patient: Rj Pinzon : 1965 PCP: Jaja Parry MD SUBJECTIVE [...] and negative PT pedal pulses NEURO: 5.07 [place] monofilament test intact to digits and [...] NWB. Adrien Jacques DPM documented in this encounterMercy Hospital St. John'sMxlqyavkkw13-54-0623 History of Present illness Narrative* Encounter Date Complaint History Of Prese nt Illness DL DL [facility] Work Phone: 1(910) 540-252207-17-2025 Evaluation note* Diagnosis Onset Date Resolution Status Admit Date Chronic pain acuteJuly 2024 9:02amFibromyalgiaacuteJuly 2024 9:02amOsteoarthritis of left kneeacuteJuly 2024 9:02amChronic painacuteSeptember 2024 10:41amFibromyalgiaacuteSeptember 2024 10:41amOsteoarthritis of left knee acuteSeptember 2024 10:41amChronic painacuteSeptember 2024 10:58am FibromyalgiaacuteSeptember 2024 10:58amOsteoarthritis of left kneeacute November 08, 2024 10:58amChronic painacuteOctober 2024 10:08am FibromyalgiaacuteOctober 2024 10:08amOsteoarthritis of left kneeacute November 19, 2024 10:08am [facility] Work Phone: 1([phone]) 940-296407-14-2025 History of Present illness Narrative* Encounter Date Complaint History Of Prese nt Illness ext ext [facility] Work Phone: 1(515) 983-915006-30-2025 Evaluation note* Diagnosis Onset Date Resolution Status Admit Date Chronic pain acuteJune 2024 7:58amFibromyalgiaacuteJune 2024 7:58amOsteoarthritis of left kneeacuteJune 2024 7:58amChronic painacuteJuly 2024 9:02am FibromyalgiaacuteJuly 2024 9:02amOsteoarthritis of left kneeacuteJuly 2024 9:02am [facility] Work Phone: 1(199) 785-901806-30-2025 Evaluation note* Diagnosis Onset Date Resolution Status Admit Date Chronic pain acuteJune 2024 7:58amFibromyalgiaacuteJune 2024 7:58amOsteoarthritis of left kneeacuteJune 2024 7:58amChronic painacuteJuly 2024 9:02am FibromyalgiaacuteJuly 2024 9:02amOsteoarthritis of left kneeacuteJuly 2024 9:02amChronic painacuteSeptember 2024 10:41amFibromyalgiaacute October 31, 2024 10:41amOsteoarthritis of left kneeacuteSeptember 2024 10:41am [facility] Work Phone: 1(211) 707-809106-30-2025 Evaluation note* Diagnosis Onset Date Resolution Status Admit Date Chronic pain acuteJune 2024 7:58amFibromyalgiaacuteJune 2024 7:58amOsteoarthritis of left kneeacuteJune 2024 7:58amChronic painacuteJuly 2024 9:02am FibromyalgiaacuteJuly 2024 9:02amOsteoarthritis of left kneeacuteJuly 2024 9:02amChronic painacuteSeptember 2024 10:41amFibromyalgiaacute October 31, 2024 10:41amOsteoarthritis of left kneeacuteSeptember 2024 10:41amChronic painacuteSeptember 2024 10:58amFibromyalgiaacuteSeptember 2024 10:58amOsteoarthritis of left kneeacuteSeptember 2024 10:58am [facility] Work Phone: [phone] 953-773606-10-2025 [place] [address] Pain Management Procedure Note Signed Patient: Rj Pinzon MR#: [id number] : 1965 Acct:[id number] Age/Sex: 58 / F Adm Date: 5 [...] MD 07/24/24 1008 Signed By: 07/24/24 1022 [facility]05-29-2025 History of Present illness Narrative * Adrien Jacques DPM - 07/12/2024 11:00 AM EDT Patient: Rj Pinzon : 1965 PCP: Jaja Parry MD SUBJECTIVE [...] and negative PT pedal pulses NEURO: 5.07 [place] monofilament test intact to digits and forefoot bilaterally 125Hz tuning fork diminished to 1st MPJ bilaterally ORTHO: Positive pain on palpation to toenails of the left 1,2,3,4,5 toes and right 1,2,3,4,5 toes ASSESSMENT 1. Venous insufficiency 2. Diabetes mellitus due to underlying condition with diabetic polyneuropathy, without long-term current use of insulin ([facility]) 3. Pain due to onychomycosis of [...] edema. Discussed condition in detail. Recommendation for giki-txo-ulubmti compression stockings at this time and may consider prescription stockings in the future. Adrien Jacques DPM documented in this encounterMercy Hospital St. John'sWrboepparj77-29-7310 Evaluation note* Diagnosis Onset Date Resolution Status Admit Date Chronic pain acuteMay 2024 9:53amFibromyalgiaacuteMay 2024 9:53amOsteoarthritis of left kneeacuteMay 2024 9:53am [facility] Work Phone: 1(356) 180-648405-28-2025 Evaluation note* Diagnosis Onset Date Resolution Status Admit Date Chronic pain acuteMay 2024 9:53amFibromyalgiaacuteMay 2024 9:53amOsteoarthritis of left kneeacuteMay 2024 9:53amChronic painacuteJune 2024 7:58am FibromyalgiaacuteJune 2024 7:58amOsteoarthritis of left kneeacuteJune 2024 7:58am [facility] Work Phone: 1(445) 879-247105-28-2025 Evaluation note* Diagnosis Onset Date Resolution Status Admit Date Chronic pain acuteMay 2024 9:53amFibromyalgiaacuteMay 2024 9:53amOsteoarthritis of left kneeacuteMay 2024 9:53amChronic painacuteJune 2024 7:58am FibromyalgiaacuteJune 2024 7:58amOsteoarthritis of left kneeacuteJune 2024 7:58amChronic painacuteJuly 2024 9:02amFibromyalgiaacuteJuly 2024 9:02amOsteoarthritis of left kneeacuteJuly 2024 9:02am [facility] Work Phone: 1([phone]) 556-358105-28-2024 Procedure noteLima [facility] Hospital03-25-2024 Evaluation note* Author Mare Ramirez [facility] 2023 9:16amWe performed a 4/1cc Marcaine / Kenalog cortisone injection into the knee joint under sterile technique. Patient tolerated the injection well without adverse reaction. Patient can follow up as needed. Note scribed by ESEQUIEL Valle, reviewed and amended by myself Mark Gu D.O. [facility] Work Phone: 1(236) 229-737506-14-2023 Evaluation note* Encounter Date Diagnosis Assessment Notes Treatment Notes Treatment Clinical Notes Jul, Primary osteoarthritis of left k nee (ICD-10 - M17.12) Jul,cute meniscal tear of left knee, initial encounter (ICD-10 - S83.207A) Jul,cute pain of left knee (ICD-10 - M25.562) Jul,ontusion of left knee, initial encounter (ICD-10 - S80.02XA) Rj presents with left knee contusion and anterior [...] This is not improved. We did discuss genicularblocks prior but she had good relief with [...] move forward with treatment at this time. Rj returns with a complaint of left knee pain. She previously had treatment with cortisone injection and reported 4 months of relief. She elects to continue to treat with cortisone injection today. We performed a 1/1cc marcaine / kenalog cortisone injection into the knee joint under sterile te chnique. Patient tolerated the injection well without adverse reaction. Tern Other 05-01-2023 Evaluation note* Encounter Date Diagnosis Assessment Notes Treatment Notes Treatment Clinical Notes June, Acute meniscal tear of left knee, initial encounter (ICD-10 - S83.207A) Tern Other 10-29-2022 Evaluation note* Encounter Date Diagnosis Assessment Notes Treatment Notes Treatment Clinical Notes Nov, Acute pain of left knee (ICD-10 - M25.562) Nov,ontusion of left knee, initial encounter (ICD-10 - S80.02XA)Wear the Roberta wrap for comfort and compression. Take ibuprofen, 600 mg 3-4 times a day with food as needed for pain and swelling. Ice and elevate your knee 2-3 times a day. Try to take frequent breaksat work to rest your knee. Follow-up with your family physician if no improvement by Tuesday or . Nov,therContusion material was printed Tern Other 08-28-2022 Evaluation note* Encounter Date Diagnosis Assessment Notes Treatment Notes Treatment Clinical Notes Sep, Contact with and (juarez spected) exposure to other viral communicable diseases (ICD-10 - Z20.828) Sep,OVID-19 (ICD-10 - U07.1)Today you tested positive for the COVID virus. This mean you need to follow all CDC quarantine guidelines found at coronavirus.[place].gov. It is important to rest, increase fluids, and stay at home. Recommend contacting primary care provider and discussing best course of action if you have chronic health conditions. COVID POSITIVE education handout discharge instructions. given. Tern Other Consult note* Clinical Note Date No Information [facility] Work Phone: Discharge summary* Clinical Note Date No Information [facility] Work Phone: Evaluation noteNo assessment information available [facility] Work Phone: Evaluation note* Author Mare Ramirez [facility] 2023 9:16amWe performed a 4/1cc Marcaine / Kenalog cortisone injection into the knee joint under sterile technique. Patient tolerated the injection well without adverse reaction. Patient can follow up as needed. Note scribed by ESEQUIEL Valle, reviewed and amended by myself Mark Gu D.O. [facility] Work Phone: Evaluation note* Diagnosis Onset Date Resolution Status Chronic pain acuteKnee painacuteOsteoarthritis of left kneeacuteChronic painacuteContusion of left kneeacuteKnee painacuteOsteoarthritis of left kneeacute [facility] Work Phone: Evaluation note* Diagnosis Venous insufficiency- Primary Unspecified venous (peripheral) insufficiency Diabetes mellitus due to underlying condition with diabetic polyneuropathy, without long-term current use of insulin ([facility]) Pain due to onychomycosis of toenails of both feet documented in this encounter [facility] HealthcareEvaluation note* Diagnosis Onset Date Resolution Status Admit Date Chronic pain acuteMay 2024 9:53amFibromyalgiaacuteMay 2024 9:53amOsteoarthritis of left kneeacuteMay 2024 9:53am [facility] Work Phone: Evaluation note* Type Assessment Date No Information [facility] Work Phone: Evaluation note* Diagnosis Diabetes mellitus due to underlying condition with diabetic polyneuropathy, without long-term current use of insulin ([facility])- Primary Pain due to onychomycosis of toenails of both feet Venous insufficiency Unspecified venous (peripheral) insufficiency documented in this encounter [facility] HealthcareHistory and physical note* Clinical Note Date No Information [facility] Work Phone: History general Narrative - Reported* Type Description Date Medical History diabetes Surgical Historyc-sections - 2Surgical HistoryoophorectomySurgical History hysterectomy [facility] Other Hiszdxz general Narrative - Reported* Type Description Date Medical History diabetes Medical Historyhigh cholesterolSurgical Historyc-sections - 2Surgical History oophorectomySurgical Historyhysterectomy [facility] Other History of Past illness Narrative* Condition Effective Dates (start - stop) O utcome No Information [facility] Work Phone: Instructions* Date Instruction Additional Infor mation No Information [facility] Work Phone: Progress note* Clinical Note Date No Information [facility] Work Phone: Reason for referral (narrative)* Reason For Referral No Information [facility] Work Phone: Reason for referral (narrative)No reason for referral information [facility] Work Phone: Review of systems Narrative - Reported* System Pos/Neg Findings No Information [facility] Work Phone: Chief Complaint and Reason for Visit Chief Complaint M25.562 Chief Complaint OP SP LT KNEE PAIN R EQUESTING Reason for Visit Acute meniscal tear of left knee Contusion of left knee Osteoarthritis of left knee Chief Complaint OP SP LT KNEE PAIN R EQUESTING OP SP LT KNEE PAIN, DID NOT IMPROVEReason for VisitAcute meniscal tear of left knee Contusion of left knee Osteoarthritis of left knee Acute meniscal tear of left knee Contusion of left knee Osteoarthritis of left knee Chief Complaint OP SP LT KNEE PAIN R EQUESTING OP SP LT KNEE PAIN, DID NOT IMPROVE NEW CONSULT DR GU LT KNEE PAIN Knee Pain Knee Pain F/U AFTER LEFT GENICULAR BLOCKReason for VisitAcute meniscal tear of left knee Contusion of left knee Osteoarthritis of left knee Contusion of left knee Knee pain Chronic pain Knee pain Osteoarthritis of left knee Chronic pain Knee pain Osteoarthritis of left knee Chief Complaint OP SP LT KNEE PAIN R EQUESTING OP SP LT KNEE PAIN, DID NOT IMPROVE NEW CONSULT DR GU LT KNEE PAIN Knee Pain Knee PainReason for VisitAcute meniscal tear of left knee Contusion of left knee Osteoarthritis of left knee Contusion of left knee Knee pain Chronic pain Knee pain Osteoarthritis of left knee Chief Complaint F/U AFTER LEFT GENIC ULAR BLOCK LT KNEE PAIN M25.569 - Pain in unspecified kneeReason for VisitChronic pain Knee pain Osteoarthritis of left knee [...] am Osteoarthritis of left knee August 13, 2 025 7:58am Chief Complaint Admit Date recheck [...] am Osteoarthritis of left knee August 13, 2 025 7:58am Chronic pain August 30, 2024 9:02 am Fibromyalgia August 30, 2024 9:02 am Osteoarthritis of left knee August 30, 2 025 9:02am Chief Complaint Admit Date recheck [...] am Unknown September 06, 2024 6:13 pm Chief Complaint Admit Date F/U LT GENICULAR RFA August 13, 2024 7:5 8am RECHECK DISCUSS INJECTION OPTIONS August 142024 9:02am M17.12 - Unilateral primary osteoarthrit is, left k August 30, 2024 9:24am Unknown September 05, 2024 8:15 am Unknown September 06, 2024 6:13 pm Unknown October 22, 2024 11:49am Reason for Visit Admit Date Chronic pain August 13, 2024 7:58 am Fibromyalgia August 13, 2024 7:58 am Osteoarthritis of left knee August 13 7:58am Chronic pain August 30, 2024 9:02 am Fibromyalgia August 30, 2024 9:02 am Osteoarthritis of left knee August 30 025 9:02am Chief Complaint Admit Date F/U LT GENICULAR RFA August 13, 2024 7:5 8am RECHECK DISCUSS INJECTION OPTIONS August 142024 9:02am M17.12 - Unilateral primary osteoarthrit is, left k August 30, 2024 9:24am Unknown September 05, 2024 8:15 am Unknown September 06, 2024 6:13 pm Unknown October 22, 2024 11:49am [facility] 1 OF 3 LT KNEE [facility] * October 31, 2024 10:41am Reason for Visit Admit Date Chronic pain August 13, 2024 7:58 am Fibromyalgia August 13, 2024 7:58 am Osteoarthritis of left knee August 13 025 7:58am Chronic pain August 30, 2024 9:02 am Fibromyalgia August 30, 2024 9:02 am Osteoarthritis of left knee August 30 025 9:02am Chronic pain October 31, 2024 10:41am Fibromyalgia October 31, 2024 10:41am Osteoarthritis of left knee October 312024 10:41am Chief Complaint Admit Date F/U LT GENICULAR RFA August 13, 2024 7:5 8am RECHECK DISCUSS INJECTION OPTIONS August 142024 9:02am M17.12 - Unilateral primary osteoarthrit is, left k August 30, 2024 9:24am Unknown September 05, 2024 8:15 am Unknown September 06, 2024 6:13 pm Unknown October 22, 2024 11:49am [facility] 1 [facility] 3 LT K[facility]EE [facility] * October 31, 2024 10:41am [facility] 2 OF 3 LT KNEE [facility] * November 08, 2024 10:58am Reason for Visit Admit Date Chronic pain August 13, 2024 7:58 am Fibromyalgia August 13, 2024 7:58 am Osteoarthritis of left knee August 13 7:58am Chronic pain August 30, 2024 9:02 am Fibromyalgia August 30, 2024 9:02 am Osteoarthritis of left knee August 30 025 9:02am Chronic pain October 31, 2024 10:41am Fibromyalgia October 31, 2024 10:41am Osteoarthritis of left knee October 312024 10:41am Chronic pain November 08, 2024 10:58am Fibromyalgia November 08, 2024 10:58am Osteoarthritis of left knee November 082024 10:58am Chief Complaint Admit Date RECHECK DISCUSS INJECTION OPTIONS August 142024 9:02am M17.12 - Unilateral primary osteoarthrit is, left k August 30, 2024 9:24am Unknown September 05, 2024 8:15 am Unknown September 06, 2024 6:13 pm Unknown October 22, 2024 11:49am [facility] 1 [facility] 3 LT [facility] * October 31, 2024 10:41am [facility] 2 OF 3 LT K[facility] * November 08, 2024 10:58am [facility] 3 [facility] 3 [facility] November 19, 2024 10:08am Reason for Visit Admit Date Chronic pain August 30, 2024 9:02 am Fibromyalgia August 30, 2024 9:02 am Osteoarthritis of left knee August 30 025 9:02am Chronic pain October 31, 2024 10:41am Fibromyalgia October 31, 2024 10:41am Osteoarthritis of left knee October 312024 10:41am Chronic pain November 08, 2024 10:58am Fibromyalgia November 08, 2024 10:58am Osteoarthritis of left knee November 082024 10:58am Chronic pain November 19, 2024 10 :08am Fibromyalgia November 19, 2024 10 :08am Osteoarthritis of left knee November 19, 2024 10:08am Chief Complaint Admit Date Unknown October 22, 2024 11:49am [facility] 3 LT [facility] * October 31, 2024 10:41am [facility] 2 [facility] 3 LT [facility] * November 08, 2024 10:58am [facility] November 19, 2024 10:08am RECHECK PER PT REQUEST December 18 1:34pm Reason for Visit Admit Date Chronic pain October 31, 2024 10:41am Fibromyalgia October 31, 2024 10:41am Osteoarthritis of left knee October 312024 10:41am Chronic pain November 08, 2024 10:58am Fibromyalgia November 08, 2024 10:58am Osteoarthritis of left knee November 082024 10:58am Chronic pain November 19, 2024 10 :08am Fibromyalgia November 19, 2024 10 :08am Osteoarthritis of left knee November 19, 2024 10:08am Chronic pain December 18, 2024 1 :34pm Fibromyalgia December 18, 2024 1 :34pm Osteoarthritis of left knee December 1:34pm Advance Directives Advance Directive Response Recorded Date/ Time Advance Directives No December 12, 2021 1:39pm Directive Yes / No Effective Date File Name No Information Advance Directive Response Recorded Date/ Time Advance Directives No December 12, 2021 12:39pm Summary Purpose Family History Relationship Condition Age at Onset Recorded Date/T maddie father Heart disease Unknown DeceasedUnknownDiabetes mellitusUnknownHypertensionUnknownNot SpecifiedMalignant neoplasmUnknownHistory of strokeUnknown Relationship Condition Age at Onset Recorded Date/T maddie father Heart disease Unknown DeceasedUnknownDiabetes mellitusUnknownHypertensionUnknownmotherMalignant neoplasmUnknownHistory of strokeUnknown Family Member Type Diagnosis Age At Onset No Information Additional Source Comments REASON FOR VISIT (unrecogniz ed section and content) ReasonCommentsDM Foot CareDm nail careReasonCommentsDM Foot Care Care Teams (unrecognized sec tion and content) Team Status: Inactive Member Role Status Dates Jaja Parry MD Primary Care Provider Active Liliya Fletcher NP-CAttending ProviderActive Team Status: Active Member Role Status Dates Jaja Parry MD Primary Care Provider Active Team Status: Inactive Member Role Status Dates Jaja Parry MD Primary Care Provider Active Start: May 09, 2023 End: May 09, 2023Justdiane Gu DOAttending ProviderActiveStart: May 09, 2023 End: May 09, 2023 Team Status: Inactive Member Role Status Natacha Parry MD Primary Care Provider Active Start: June 17, 2023 End: June 17, 2023Justin Juwan Gu DOAttending ProviderActiveStart: June 17, 2023 End: June 17, 2023 Team Status: Inactive Member Role Status Natacha Parry MD Primary Care Provider Active Start: June 30, 2023 End: June 30, 2023Thomas Eleanor Nassarending ProviderActiveStart: June 30, 2023 End: June 30, 2023 Team Status: Inactive Member Role Status Natacha Parry MD Primary Care Provider Active Start: July 12, 2023 End: July 11omas MJ Nassarttending ProviderActiveStart: July 12, 2023 End: July 12, 2023 Team Status: Active Member Role Status Natacha Parry MD Primary Care Provider Active Start: July 12, 2023 Ben Will Provider, Other ProviderActiveStart: July 12, 2023 Team Status: Inactive Member Role Status Natacha Parry MD Primary Care Provider Active Start: August 01, 2023 End: July 31maynor FeltMJ bolivarttending ProviderActiveStart: August 01, 2023 End: August 01, 2023 Team Status: Inactive Member Role Status Natacha Parry MD Primary Care Provider Active Start: October 13, 2023 End: October 12omas MJ Nassarttending ProviderActiveStart: October 13, 2023 End: October 13, 2023 Team Status: Active Member Role Status Natacha Parry MD Primary Care Provider Active Start: October 13, 2023 Ben Will ProviderActiveStart: October 13, 2023 Team MemberRelationshipSpecialtyStart DateEnd Date Jaja Parry MD [address] [place] [address] [facility] K[facility]wlju59/[facility]/23Team MemberRelationshipSpecialtyStart Date End Date Jaja Parry MD [address] [place] [address] PCP - [facility] Rmdpzjsz80/20/23 Team Status: Inactive Member Role Status Dates Jaja Parry MD Primary Care Provider Active Start: July 11, 2024 End: July 11Ben Kilgore ProviderActiveStart: July 11, 2024 End: July 11, 2024 Team Status: Inactive Member Role Status Dates Jaja Parry MD Primary Care Provider Active Start: July 24, 2024 End: July 24Ben Kilgore ProviderActiveStart: July 24, 2024 End: July 24, 2024 Team Status: Active Member Role Status Dates Jaja Parry MD Primary Care Provider Active Start: July 24, 2024 Ben Will Provider, Other ProviderActiveStart: July 24, 2024 Team Status: Active Member Role Status Dates Jaja Parry MD Primary Care Provider Active Start: July 24, 2024 Ben Will ProviderActiveStart: July 24, 2024 Gregg Nassar MDOther ProviderActiveStart: July 24, 2024 Team Status: Inactive Member Role Status Dates Jaja Parry MD Primary Care Provider Active Start: August 13, 2024 End: August 13Ben Kilgore ProviderActiveStart: August 13, 2024 End: August 13, 2024 Team Status: Inactive Member Role Status Dates Jaja Parry MD Primary Care Provider Active Start: August 30, 2024 End: August 30Ben Kilgore ProviderActiveStart: August 30, 2024 End: August 30, 2024 Team Status: Active Member Role Status Natacha Parry MD Primary Care Provider Active Start: August 30, 2024 Ben Will ProviderActiveStart: August 30, 2024 Team Status: Inactive Member Role Status Dates Vielka Galeano MD Attending Provider Active Sta rt: September 05, 2024 End: September 05, 2024 Team Status: Inactive Member Role Status Dates Jonathan العلي MD Attending Provider Active Start : September 06, 2024 End: September 06, 2024 Name Effective Dates (start - stop) Status Members No Information Team MemberRelationshipSpecialtyStart DateEnd Date Jaja Parry MD [address] [place] [address] PCP [facility]02/02/23Team MemberRelationshipSpecialtyStart Date End Date Jaja Parry MD [address] [place] [address] [facility]02/02/23 Team Status: Inactive Member Role Status Dates Jaja Parry MD Attending Provider Active Sta rt: October 22, 2024 End: October 22, 2024 Team Status: Active Member Role Status Dates NON STAFF Primary Care Provider Active Team Status: Inactive Member Role Status Dates Gregg Nassar MD Attending Provider Active Sta rt: October 31, 2024 End: October 31, 2024NON STAFFPrimary Care ProviderActiveStart: October 31, 2024 End: October 31, 2024 Team Status: Inactive Member Role Status Dates Gregg Nassar MD Attending Provider Active Sta rt: November 08, 2024 End: November 08, 2024NON STAFFPrimary Care ProviderActiveStart: November 08, 2024 End: November 08, 2024 Team Status: Inactive Member Role Status Dates Gregg Nassar MD Attending Provider Active Sta rt: November 19, 2024 End: November 19, 2024NON STAFFPrimary Care ProviderActiveStart: November 19, 2024 End: November 19, 2024 Team Status: Active Member Role/Relationship Status Dates NON STAFF Primary Care Provider Active Team Status: Inactive Member Role/Relationship Status Dates Jaja Parry MD Attending Provider Active Sta rt: October 22, 2024 End: October 22, 2024 Team Status: Inactive Member Role/Relationship Status Dates Gregg Nassar MD Attending Provider Active Sta rt: October 31, 2024 End: October 31, 2024NON STAFFPrimary Care ProviderActiveStart: October 31, 2024 End: October 31, 2024 Team Status: Inactive Member Role/Relationship Status Dates Gregg Nassar MD Attending Provider Active Sta rt: November 08, 2024 End: November 08, 2024NON STAFFPrimary Care ProviderActiveStart: November 08, 2024 End: November 08, 2024 Team Status: Inactive Member Role/Relationship Status Dates Gregg Nassar MD Attending Provider Active Sta rt: November 19, 2024 End: November 19, 2024NON STAFFPrimary Care ProviderActiveStart: November 19, 2024 End: November 19, 2024 Team Status: Inactive Member Role/Relationship Status Dates NON STAFF Primary Care Provider Active Start: December 18, 2024 End: December 18Ben Kilgore ProviderActiveStart: December 18, 2024 End: December 18, 2024 Goals (unrecognized section and content) Goals may be documented in a n alternate section INFORMATION SOURCE (unrecogn ized section and content) DATE CREATED AUTHOR 06/27/2022 [facility] DATE CREATED AUTHOR AUTHOR'S ORGANIZ ATION 09/12/2024 [facility] DATE CREATED AUTHOR AUTHOR'S ORGANIZ ATION 09/22/2024 [facility] DATE CREATED AUTHOR AUTHOR'S ORGANIZ ATION 10/28/2024 [facility] DATE CREATED AUTHOR AUTHOR'S ORGANIZ ATION 12/16/2024 [facility] FOR RECORDS PERTAINING TO PATIENTS WHO ARE [...] BE BASED ON THE PRIMARY CLINICAL RECORDS. [employer] provides no warranty or guarantee of the accuracy or completeness of information in this document.
--- OUTSIDE RECORDS SUMMARY | 2025-01-22 06:54 | XMS_ITS | Encounter Summary ---
Author Organization [facility] Address [address] [place], [place] [address] Care Team Providers Care Crystal Calibrator Name Role Phone Florencio Parry MD [facility] [phone] Source Comments In the event this information is protected by the Federal Confidentiality of Alcohol and Drug AbusePatient Records regulations: The Federal rules restrict any use of the information to criminally investigate or prosecute any alcohol or drug abuse patient.[facility] Encounter Details DateTypeDepartmentCare Team (Latest Contact Info)Ohwmufexgor11/27/2025Travel Social History Tobacco UseTypesPacks/DayYears UsedDateSmoking Tobacco: Never AssessedPHQ-2 AnswerDate RecordedPHQ-2 kfyef74503/12/2024CommentsUnknownSex and Gender InformationValueDate RecordedSex Assigned at BirthNot on fileLegal SexFemale 12/21/2024 3:03 PM ESTGender IdentityNot on fileSexual OrientationNot on file documented as of this encounter Plan of Treatment DateTypeDepartmentCare Team (Latest Contact Info)Oimjtuotjcx40/09/2025 2:00 PM ESTOffice [place] [address] Why is my insurance not being billed?02/05/2025 9:30 AM EST[facility] [address] [address] Daniella Claros, 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
--- OUTSIDE RECORDS SUMMARY | 2025-01-22 06:54 | XMS_ITS | Clinical Summary ---
Author Organization [facility] Address [address] [place], [place] [address] Care Team Providers Care Wind [employer] Operations Manager Name Role Phone lForencio Parry MD [facility] [phone] Medications MedicationSigDispense QuantityRefillsLast FilledStart DateEnd DateStatus tolterodine ER (DETROL LA) 2 mg 24 hr capsule 1 capsule.5Active triamcinolone acetonide (KENALOG) 0.1 % cream APPLY to the affected area on the arms up to 2 (TWO) weeks UWUSLG3004/03/2024 Active SEROQUEL 50 mg tablet Take 50 mg by mouth daily at bedtime.5Active simvastatin (ZOCOR) 20 mg tablet Take 20 mg by mouth.5Active Pvegsysbcsqat-Aeucigfm-Nevuqu (CENTRUM SILVER) tab Take 1 tablet by mouth every morning.Active magnesium oxide (MAG-OX) 400 mg (241.3 mg magnesium) tablet Take 400 mg by mouth.5Active hyoscyamine sublingual (LEVSIN SL) 0.125 mg 0.125 mg.5Active cyclobenzaprine (FLEXERIL) 10 mg tablet Take 10 mg by mouth.5Active celecoxib (CELEBREX) 200 mg capsule Take 200 mg by mouth once daily.5Active VICTOZA 2-ANDI 0.6 mg/0.1 mL (18 mg/3 mL) pen injector Inject 0.6mg Subcutaneous once daily; Duration: 90 daysActive simvastatin (ZOCOR) 20 mg tablet Take 20 mg by mouth daily at bedtime.Active metoprolol tartrate, short acting, (LOPRESSOR) 50 mg tablet Take 50 mg by mouth two times a day.Active pantoprazole (PROTONIX) 40 mg grps Take 40 mg by mouth daily at 6 am.Active Encounters DateTypeDepartmentCare AdptMxmqyqpmege00/04/2025 11:44 AM EST - 01/17/2025 11:59 PM ESTHospital Encounter Radiology [address] [phone] Cervical spine pain [M54.2] Discharge Disposition: Home01/17/2025 10:00 AM ESTOffice Visit Rheumatology [address] [phone] Daniella Claros, TIMBO.FURNACE COMBUSTION TESTER Polyarthralgia (Primary Dx); Paresthesia; Cervical spine pain; Pain in thoracic spine; Chronic bilateral low back pain without sciatica; Decreased ROM of left shoulder; Chronic left shoulder pain; Bilateral hip pain01/17/2025Telephone Rheumatology [address] [phone] Daniella Claros, INTERNAL CONTROLS SPECIALIST.FURNACE COMBUSTION TESTER Qyerqs0401/10/20257933Ugulfy22/24/2025 Patient [facility] HB-[address] [place] [address] Jenna Joel RPh At your next appointment, choose [facility].12/21/2024Transcribe Orders Referring Physician [address] [place] [address] Florencio Parry MD Fibromyalgia (Primary Dx)from Last 3 Months Social History Tobacco UseTypesPacks/DayYears UsedDateSmoking Tobacco: Never AssessedPHQ-2 AnswerDate RecordedPHQ-2 dyppc68203/12/2024rea Deprivation IndexAnswerDate RecordedNational Score (1-100), lower number is lower phbl145301/17/2025State Score (1-10), lower number is lower wual66503/20/2024Data from: https://www.neighborhoodatlas.medicine.[facility].edu/. Last address used for [address] [place] [address]/17/2025CommentsUnknownSex and Gender InformationValueDate RecordedSex Assigned at BirthNot on fileLegal SexFemale 12/21/2024 3:03 PM ESTGender IdentityNot on fileSexual OrientationNot on file Last Filed Vital Signs Vital SignReadingTime TakenCommentsBlood Zlxnzoxu965/8501/17/2025 10:06 AM EST Dyvuu879301/17/2025 10:06 AM ZHLTqspyaelvkd74.3 ??C (97.3 ??F)01/17/2025 10:06 AM ESTRespiratory Rate--Oxygen Saturation--Inhaled Oxygen Concentration--Weight 103.1 kg (227 lb 4.7 oz)01/17/2025 10:06 AM ESTHeight--Body Mass Index-- Plan of Treatment DateTypeDepartmentCare Team (Latest Contact Info)Qcykabwhsbb91/09/2025 2:00 PM ESTOffice Visit Customer Service Phone Screening [address] [address] [phone] Why is my insurance not being billed?02/05/2025 9:30 AM ESTDistance Health Rheumatology [address] [phone] Daniella Claros, INTERNAL CONTROLS SPECIALIST.FURNACE COMBUSTION TESTER [address] [phone] 2w f/u vv per walkupHealth MaintenanceDue DateLast DoneCommentsAnxiety Screening 10/10/1981Depression Zetjmlrps32/27/1982HIV Niiawrmuv92/27/1982Hepatitis C Yifkzdpdr42/27/1982DTaP,Tdap,Td Vaccine (1 - Tdap)10/10/1982Cervical Cancer Dezlghbzc24/27/1985Mammogram Qwgxwdstr36/27/2004CT Warkmniizprx42/27/2009 Cologuard (FIT-DNA)10/10/20084980Ymqizcpzuza06/27/2009Colorectal Cancer Screening 10/10/2008Fecal Occult Blood10/10/2008Lipid Hoyyemcjq70/27/2009Sigmoidoscopy 10/10/2008Pneumococcal Vaccine: 50+ (1 of 1 - PCV)10/10/2013Shingrix Vaccine (1 of 2)10/10/2013Covid-19 Vaccine (1 - season)2024Influenza Vaccine (#1)2024Diabetes Xhfqprlox11/04/476790/05/2024, 12/16/2024RSV Vaccine (1 - 1-dose 75+ series)10/10/2038 Procedures Procedure NamePriorityDate/TimeAssociated DiagnosisCommentsURINE PROTEIN ELECTROPHORESIS RANDOM (P)Erzgqyc9601/17/2025 12:52 PM EST Polyarthralgia PROTEIN RANDOM RMGeaquya12/04/2025 12:52 PM EST Polyarthralgia MONOCLONAL PROT UR W/ZVYBSCOhkukij26/04/2025 12:52 PM EST Polyarthralgia PROTEIN CREATININE WSSHUBfmhtbm18/04/2025 12:52 PM EST Polyarthralgia PROTEIN ELECT RND UR W/YKCIKWYswsmiy14/04/2025 12:52 PM EST Polyarthralgia CHROMATIN QKRFBOONDmsrepp17/04/2025 12:46 PM EST Polyarthralgia RIBOSOMAL ICU RN AB WSCOtrxzcj46/04/2025 12:46 PM EST Polyarthralgia MITALI-1 QKAcfghmc31/04/2025 12:46 PM EST Polyarthralgia SCLERODERMA IGG KHObhrdej91/04/2025 12:46 PM EST Polyarthralgia ANTI-CENTROMERE RZNpoqpxa47/04/2025 12:46 PM EST Polyarthralgia ANTI SSB DTFHxhfrrq92/04/2025 12:46 PM EST Polyarthralgia ANTI SSA MEPMngnecn13/04/2025 12:46 PM EST Polyarthralgia ICU RN ANTIBODY BTDUVIihjifx04/04/2025 12:46 PM EST Polyarthralgia KRUSE IGG RLCzssnyx42/04/2025 12:46 PM EST Polyarthralgia PROTEIN ELECTROPHORESIS SERUM (P)Iofubul1701/17/2025 12:46 PM EST Polyarthralgia PROTEIN, TOTAL (FOR SEPG)Xnslcyg8501/17/2025 12:46 PM EST Polyarthralgia FRANNY BY IFA EERNLBIvgcfvx25/04/2025 12:46 PM EST Polyarthralgia FERRITIN EZLFdmfyaf95/04/2025 12:46 PM EST Polyarthralgia IRON + AANDNvubojg06/04/2025 12:46 PM EST Polyarthralgia TSH W/REFLEX PC1Rjmdgqr44/04/2025 12:46 PM EST Polyarthralgia COMPREHENSIVE METABOLIC JTVBRFkvfovn96/04/2025 12:46 PM EST Polyarthralgia CBC + VDLVPlscoku00/04/2025 12:46 PM EST Polyarthralgia ANTI HMGCR YSQAULCNMRWNOQOxwjgkp55/04/2025 12:46 PM EST Polyarthralgia CK CREATINE LLURKPRvqgwzd87/04/2025 12:46 PM EST Polyarthralgia ALDOLASE FZOLtbkwcs71/04/2025 12:46 PM EST Polyarthralgia LD LACTATE EQBVYNWAwqnmok88/04/2025 12:46 PM EST Polyarthralgia ANTI CORNELIUS SCJzvwmht53/04/2025 12:46 PM EST Polyarthralgia IMMUNOFIXATION SCREEN, DEYZPAwhfxke15/04/2025 12:46 PM EST Polyarthralgia RHEUMATOID FACTOR BWFwxwuol78/04/2025 12:46 PM EST Polyarthralgia C3 COMPLEMENT BSWJmcehji30/04/2025 12:46 PM EST Polyarthralgia C4 COMPLEMENT IEPSdyutmf31/04/2025 12:46 PM EST Polyarthralgia PROTEIN ELECTROPHORESIS SERUM W/FDDCSEBaewssh52/04/2025 12:46 PM EST Polyarthralgia KAPPA/WONG,FREE,OBEJcqktiq58/04/2025 12:46 PM EST Polyarthralgia XR HIP GENERAL 3V PELV/AP/LAT HPACJbqikgu00/04/2025 12:31 PM EST Bilateral hip pain XR HIP GENERAL 3V PELV/AP/LAT SUXRYNfjrggb22/04/2025 12:31 PM EST Bilateral hip pain XR SHOULDER GENERAL 3V OR MORE AP/TRUE AP/OTHER YWMIMOmrhquj01/04/2025 12:31 PM EST Decreased ROM of left shoulder Chronic left shoulder pain XR LUMBAR GENERAL 3V AP/LAT/L5-B8Rdktydk27/04/2025 12:31 PM EST Chronic bilateral low back pain without sciatica XR THORACIC GENERAL 3V AP/LAT/FTBSCTWTYrccnau36/04/2025 12:31 PM EST Pain in thoracic spine XR CERVICAL 2V FLEX/YBQIkgmxmw90/04/2025 12:31 PM EST Cervical spine pain from Last 3 Months Results * (ABNORMAL) PROTEIN / CREATININE RATIO (01/17/2025 12:52 PM EST)ComponentValue Ref RangeTest MethodAnalysis TimePerformed AtPathologist SignatureProtein, Urine Gyrytp051 - 20 mg/dL01/18/2025 9:58 AM [facility] Creatinine, Ur Random (UCRR)68.920.0 - 300.0 mg/dL01/18/2025 9:58 AM EST [facility] MAIN LABProtein/Creat Ratio0.15(H)<0.15 mg/mg01/18/2025 9:58 AM [facility] LABComment: Adult Proteinuria Categories: <0.15 mg/mg is considered normal to mildly increased 0.15 - 0.50 mg/mg is considered moderately increased >0.50 mg/mg is considered severely increased KDIGO. (2013). KDIGO 2012 Clinical Practice Guideline for the Evaluation and Management of Chronic Kidney Disease. Official Journal of the International Society of Nephrology, 3(1), 1150. Specimen (Source)Anatomical Location / LateralityCollection Method / Volume Collection TimeReceived TimeUrineURINE SPECIMEN / UnknownNon Blood / Unknown 01/17/2025 12:52 PM EST01/17/2025 12:56 PM EST Narrative Authorizing ProviderResult TypeResult StatusLaura Tonio Claros INTERNAL CONTROLS SPECIALIST.CNPLABORATORY Final ResultPerforming OrganizationAddressCity/State/ZIP CodePhone Number [facility] [address] * URINE PROTEIN ELECTROPHORESIS RANDOM (P) (01/17/2025 12:52 PM EST)Component ValueRef RangeTest MethodAnalysis TimePerformed AtPathologist SignatureAlbumin %, Urine (Prot Electro)35.02%01/21/2025 11:12 AM [facility] Alpha 1 Globulin %, Urine4.93%01/21/2025 11:12 AM [facility] Alpha 2 Globulin %, Urine17.38%01/21/2025 11:12 AM [facility] LABBeta Globulin %, Urine25.50%01/21/2025 11:12 AM [facility] LABGamma Globulin %, Urine17.18%01/21/2025 11:12 AM [facility] LABInterpretation (Urine Electro)No definitive M protein is identified on protein electrophoresis.No definitive M protein is identified on protein electrophoresis.01/21/2025 11:12 AM [facility] LABStaff Review (Urine Electro)Reviewed by Dr. Kelly Roman MD01/21/2025 11:12 AM [facility] LABSpecimen (Source)Anatomical Location / Laterality Collection Method / VolumeCollection TimeReceived TimeUrineURINE SPECIMEN / UnknownNon Blood / Wvaibkj3801/17/2025 12:52 PM EST01/17/2025 12:56 PM EST Narrative Authorizing ProviderResult TypeResult StatusLadestin Claros APRN.CNPLABORATORY Final ResultPerforming OrganizationAddressCity/State/ZIP CodePhone Number [facility] [address] [place] [address], [place] * PROTEIN RANDOM URINE (01/17/2025 12:52 PM EST)ComponentValueRef RangeTest MethodAnalysis TimePerformed AtPathologist SignatureProtein, Urine Vftebt489 - 20 mg/dL01/18/2025 9:58 AM [facility] LABSpecimen (Source) Anatomical Location / LateralityCollection Method / VolumeCollection Time Received TimeUrineURINE SPECIMEN / UnknownNon Blood / Rcfqymw6701/17/2025 12:52 PM EST01/17/2025 12:56 PM EST Narrative Authorizing ProviderResult TypeResult StatusLadestin Claros APRN.CNPLABORATORY Final ResultPerforming OrganizationAddressCity/State/ZIP CodePhone Number [facility] [place] [address], [place] * MONOCLONAL PROT UR W/INTERP (01/17/2025 12:52 PM EST)ComponentValueRef Range Test MethodAnalysis TimePerformed AtPathologist SignatureResult (UMPA)No M protein is identified.No M protein is identified.01/21/2025 11:03 AM EST [facility] LABStaff Review (UMPA)Reviewed by Dr. Kelly Roman MD 01/21/2025 11:03 AM [facility] LABSpecimen (Source)Anatomical Location / LateralityCollection Method / VolumeCollection TimeReceived Time UrineURINE SPECIMEN / UnknownNon Blood / Qdqnlma4901/17/2025 12:52 PM EST 01/17/2025 12:56 PM EST Narrative Authorizing ProviderResult TypeResult StatusLadestin Claros APRN.CNPLABORATORY Final ResultPerforming OrganizationAddressCity/State/ZIP CodePhone Number [facility] [address] [place] [address], [place] * FRANNY BY IFA SCREEN (01/17/2025 12:46 PM EST)ComponentValueRef RangeTest Method Analysis TimePerformed AtPathologist AnjwdfvejQBXBjrqvgupFitckanm76/05/2025 3:17 PM [facility] LABComment: Anti-nuclear antibody test is used as [...] Claros APRN.CNPLABORATORY Final ResultPerforming OrganizationAddressCity/State/ZIP CodePhone Number [facility] [address] [place] [address], * IMMUNOFIXATION SCREEN, SERUM (01/17/2025 12:46 PM EST)ComponentValueRef Range Test MethodAnalysis TimePerformed AtPathologist SignatureMPA ResultNo M protein is identified.No M protein is identified.01/21/2025 8:40 AM EST [facility] LABStaff Review (MPA)Reviewed by Dr. Kelly Roman MD 01/21/2025 8:40 AM [facility] LABSpecimen (Source)Anatomical Location / LateralityCollection Method / VolumeCollection TimeReceived Time BloodBLOOD SPECIMEN / UnknownVenipuncture / Gmstutc6601/17/2025 12:46 PM EST 01/17/2025 12:48 PM EST Narrative Authorizing ProviderResult TypeResult StatusLadestin Claros INTERNAL CONTROLS SPECIALIST.CNPLABORATORY Final ResultPerforming OrganizationAddressCity/State/ZIP CodePhone Number [facility] [address] [place] [address], * PROTEIN, TOTAL (FOR SEPG) (01/17/2025 12:46 PM EST)ComponentValueRef RangeTest MethodAnalysis TimePerformed AtPathologist SignatureProtein, Total7.46.3 - 8.0 g/dL01/17/2025 9:13 PM [facility] LABSpecimen (Source) Anatomical Location / LateralityCollection Method / VolumeCollection Time Received TimeBloodBLOOD SPECIMEN / UnknownVenipuncture / Pwwdsgs0601/17/2025 12:46 PM EST01/17/2025 12:48 PM EST Narrative Authorizing ProviderResult TypeResult StatusLaura Tonio Claros INTERNAL CONTROLS SPECIALIST.CNPLABORATORY Final ResultPerforming OrganizationAddressCity/State/ZIP CodePhone Number [facility] [address] * PROTEIN ELECTROPHORESIS SERUM (P) (01/17/2025 12:46 PM EST)ComponentValueRef RangeTest MethodAnalysis TimePerformed AtPathologist SignatureAlbumin for SPE 4.543.43 - 5.41 g/dL01/21/2025 7:55 AM [facility] LABAlpha 1 Globulin0.260.18 - 0.43 g/dL01/21/2025 7:55 AM [facility] Alpha 2 Globulin0.740.42 - 0.98 g/dL01/21/2025 7:55 AM [facility] LABBeta Globulin0.950.61 - 1.17 g/dL01/21/2025 7:55 AM [facility] LABGamma Globulin0.910.53 - 1.51 g/dL01/21/2025 7:55 AM EST [facility] LABInterpretation (Prot Electro)No definitive M protein is identified on protein electrophoresis.No definitive M protein is identified on protein electrophoresis.01/21/2025 7:55 AM [facility] LABM- Protein Dnfkgjsj16/08/2025 7:55 AM [facility] LABComment:Not Applicable.M-Protein Concentration0.00<=0.00 g/dL01/21/2025 7:55 AM EST [facility] LABSPE Staff ReviewReviewed by Dr. Kelly Roman MD 01/21/2025 7:55 AM [facility] LABSpecimen (Source)Anatomical Location / LateralityCollection Method / VolumeCollection TimeReceived Time BloodBLOOD SPECIMEN / UnknownVenipuncture / Duegftc4301/17/2025 12:46 PM EST 01/17/2025 12:48 PM EST Narrative [facility] - 01/21/2025 7:55 AM EST Serum electrophoresis test was performed using the kingsky V8 NEXUS capillary electrophoresis method. Results obtained with different assay methods or kits cannot be used interchangeably. Authorizing ProviderResult TypeResult StatusLadestin Claros APRN.CNPLABORATORY Final ResultPerforming OrganizationAddressCity/State/ZIP CodePhone Number [facility] [address] * ANTI HMGCR AUTOANTIBODIES (01/17/2025 12:46 PM EST)ComponentValueRef RangeTest MethodAnalysis TimePerformed AtPathologist SignatureAnti HMGCR Autoantibodies Test<1.50.0 - 19.9 Units01/21/2025 10:41 PM ESTMSUP LABORATORIESComment: INTERPRETIVE INFORMATION: HMGCR Antibody, IgG IgG antibodies to 0-lamiikh-1-methylglutaryl-coenzyme A reductase (HMGCR) are mainly associated with necrotizing autoimmune myopathy (NAM) in a subset of statin-treated patients. Although infrequent, these antibodies may also be observed in statin-naive patients with NAM. Strong clinical correlation is recommended in the absence of muscle fiber necrosis, elevated serum creatine kinase, perimysial pathology, and/or statin exposure. Performed By: [employer] [address] [place] [id number] [employer] Consultant: Roscoe Matos MD, PhD CLIA Number: [id number] Specimen (Source)Anatomical Location / LateralityCollection Method / Volume Collection TimeReceived TimeBloodBLOOD SPECIMEN / UnknownVenipuncture / Unknown 01/17/2025 12:46 PM EST01/17/2025 12:48 PM EST Narrative Authorizing ProviderResult TypeResult StatusLadestin Claros APRN.CNPLABORATORY Final ResultPerforming OrganizationAddressCity/State/ZIP CodePhone Number [employer] [address] [place] [phone] * CHROMATIN ANTIBODY (01/17/2025 12:46 PM EST)ComponentValueRef RangeTest Method Analysis TimePerformed AtPathologist SignatureCHROMATIN AB QUALNegative Otbztoal74/05/2025 10:06 AM [facility] LABChromatin Antibody<0.2 <1.0 AI01/18/2025 10:06 AM [facility] LABComment:Test Methodology: Multiplex flow immunoassay.Specimen (Source)Anatomical Location / LateralityCollection Method / VolumeCollection TimeReceived TimeBloodBLOOD SPECIMEN / UnknownVenipuncture / Kdjnrlw6001/17/2025 12:46 PM EST01/17/2025 12:48 PM EST Narrative [facility] - 01/18/2025 10:06 AM EST Anti-chromatin antibody is used as an aid in diagnosis of systemic lupus erythematosus. Clinical correlation is required. Test Methodology: Multiplex flow immunoassay. Authorizing ProviderResult TypeResult StatusDaniella Claros INTERNAL CONTROLS SPECIALIST.CNPLABORATORY Final ResultPerforming OrganizationAddressCity/State/ZIP CodePhone Number [facility] [address] [place] [address], * TSH W/REFLEX FT4 (01/17/2025 12:46 PM EST)ComponentValueRef RangeTest Method Analysis TimePerformed AtPathologist SignatureTSH1.8200.270 - 4.200 mIU/L 01/17/2025 10:46 PM [facility] LABSpecimen (Source)Anatomical Location / LateralityCollection Method / VolumeCollection TimeReceived Time BloodBLOOD SPECIMEN / UnknownVenipuncture / Vjbuwrk9801/17/2025 12:46 PM EST 01/17/2025 12:48 PM EST Narrative Authorizing ProviderResult TypeResult StatusLadestin Claros INTERNAL CONTROLS SPECIALIST.CNPLABORATORY Final ResultPerforming OrganizationAddressty/State/ZIP CodePhone Number [facility] [address] [place] [address], * KAPPA/WONG,FREE,SER (01/17/2025 12:46 PM EST)ComponentValueRef RangeTest MethodAnalysis TimePerformed AtPathologist SignatureKappa Free, Serum18.53.3 - 19.4 mg/L103/21/2024 1:26 PM [facility] LABComment: Rarely, increased serum free light chains levels may not be detected or accurately quantified due to prozone phenomenon or in high viscosity samples using this immunoturbidimetric assay. Correlation with other laboratory results and clinical findings is recommended. The [place] Free Light Chain was performed using the Binding Site Optilite immunoturbidimetric method. Result obtained with different assay methods or kits cannot be used interchangeably. Lambda Free, Serum19.85.7 - 26.3 mg/L103/21/2024 1:26 PM [facility] LABComment: Rarely, increased serum free light chains [...] K/L Ratio, Serum0.930.26 - 1.6501/18/2025 1:26 PM [facility] Specimen (Source)Anatomical Location / LateralityCollection Method / Volume Collection TimeReceived TimeBloodBLOOD SPECIMEN / UnknownVenipuncture / Unknown 01/17/2025 12:46 PM EST01/17/2025 12:48 PM EST Narrative Authorizing ProviderResult TypeResult StatusLadestin Claros APRN.CNPLABORATORY Final ResultPerforming OrganizationAddressCity/State/ZIP CodePhone Number [facility] [address] * RIBOSOMAL ICU RN AB BLD (01/17/2025 12:46 PM EST)ComponentValueRef RangeTest MethodAnalysis TimePerformed AtPathologist SignatureRibosomal ICU RN Qualitative YpevrnptKidkvryr37/05/2025 10:06 AM [facility] LABComment: Anti-Ribosomal RNA (Ribosomal P) antibody is used as an aid in diagnosis of systemic autoimmune diseases especially systemic lupus erythematosus and mixed connective tissue disease. Cross-reactivity with Anti-kruse antibody is not uncommon. Clinical correlation is required. ?? Test Methodology: Multiplex flow immunoassay. Ribosomal ICU RN<0.2<1.0 AI01/18/2025 10:06 AM [facility] LABSpecimen (Source)Anatomical Location / LateralityCollection Method / VolumeCollection TimeReceived TimeBloodBLOOD SPECIMEN / UnknownVenipuncture / Qpmkuhn5701/17/2025 12:46 PM EST01/17/2025 12:48 PM EST Narrative Authorizing ProviderResult TypeResult StatusLadestin Claros INTERNAL CONTROLS SPECIALIST.CNPLABORATORY Final ResultPerforming OrganizationAddressCity/State/ZIP CodePhone Number [facility] [address] [place] [address], [place] * ICU RN ANTIBODY BLOOD (01/17/2025 12:46 PM EST)ComponentValueRef RangeTest Method Analysis TimePerformed AtPathologist SignatureRNP Antibody QUALNegative Xbofdzyf67/05/2025 10:06 AM [facility] LABRNP Antibody<0.2<1.0 AI01/18/2025 10:06 AM [facility] LABSpecimen (Source)Anatomical Location / LateralityCollection Method / VolumeCollection TimeReceived Time BloodBLOOD SPECIMEN / UnknownVenipuncture / Vucwhgd8801/17/2025 12:46 PM EST 01/17/2025 12:48 PM EST Narrative [facility] - 01/18/2025 10:06 AM EST Anti-ICU RN antibody is used as an aid in diagnosis of systemic autoimmune diseases especially systemic lupus erythematosus and mixed connective tissue disease. Cross-reactivity with Anti-kruse antibody is not uncommon. Clinical correlation is required. Test Methodology: Multiplex flow immunoassay. Authorizing ProviderResult TypeResult StatusDaniella Claros APRN.CNPLABORATORY Final ResultPerforming OrganizationAddressCity/State/ZIP CodePhone Number [facility] [address] [phone], [place] * KRUSE IGG AB (01/17/2025 12:46 PM EST)ComponentValueRef RangeTest Method Analysis TimePerformed AtPathologist SignatureSM Antibody QualNegativeNegative 01/18/2025 10:06 AM [facility] LABComment: Anti-Sm (Kruse) antibody is used as an aid in diagnosis of systemic lupus erythematosus and its presence is associated with renal disease. A negative result cannot rule out systemic lupus erythematosus. Clinical correlation is required. ?? Test Methodology: Multiplex flow immunoassay. SM Antibody<0.2<1.0 AI01/18/2025 10:06 AM [facility] LABSpecimen (Source)Anatomical Location / LateralityCollection Method / VolumeCollection TimeReceived TimeBloodBLOOD SPECIMEN / UnknownVenipuncture / Qbybiel3901/17/2025 12:46 PM EST01/17/2025 12:48 PM EST Narrative Authorizing ProviderResult TypeResult StatusLadestin Claros INTERNAL CONTROLS SPECIALIST.CNPLABORATORY Final ResultPerforming OrganizationAddressty/State/ZIP CodePhone Number [facility] [address] [phone], * (ABNORMAL) LACTATE DEHYDROGENASE (01/17/2025 12:46 PM EST)ComponentValueRef RangeTest MethodAnalysis TimePerformed AtPathologist RcrdisdfdYE220(H)135 - 214 U/L103/20/2024 9:13 PM [facility] LABComment: Hemolysis present. The origin of the [...] ProviderResult TypeResult Ramsey Claros APRN.CNPLABORATORY Final ResultPerforming OrganizationAddressty/State/ZIP CodePhone Number [facility] [address] [phone], * SCLERODERMA IGG AB (01/17/2025 12:46 PM EST)ComponentValueRef RangeTest Method Analysis TimePerformed AtPathologist SignatureScleroderma Ab QualNegative Juyhpgfy63/05/2025 10:06 AM [facility] LABScleroderma Ab, IgG <0.2<1.0 AI01/18/2025 10:06 AM [facility] LABComment:Scl- 70/Scleroderma antibody test is used as an aid in diagnosis of systemic sclerosis especially the diffuse cutaneous form. A negative result cannot rule out systemic sclerosis. The final interpretation should consider clinical picture and other test results such as anti-centromere antibody. Test M ethodology: Multiplex flow immunoassay.Specimen (Source)Anatomical Location / LateralityCollection Method / VolumeCollection TimeReceived TimeBloodBLOOD SPECIMEN / UnknownVenipuncture / Ddjpgod2201/17/2025 12:46 PM EST01/17/2025 12:48 PM EST Narrative Authorizing ProviderResult TypeResult Ramsey Elizalde Harlan INTERNAL CONTROLS SPECIALIST.CNPLABORATORY Final ResultPerforming OrganizationAddressCity/State/ZIP CodePhone Number [facility] [address] [place] [address], [place] * RHEUMATOID FACTOR (01/17/2025 12:46 PM EST)ComponentValueRef RangeTest Method Analysis TimePerformed AtPathologist SignatureRheumatoid Factor<10<16 IU/mL 01/17/2025 10:27 PM [facility] LABSpecimen (Source)Anatomical Location / LateralityCollection Method / VolumeCollection TimeReceived Time BloodBLOOD SPECIMEN / UnknownVenipuncture / Xeqlywh0201/17/2025 12:46 PM EST 01/17/2025 12:48 PM EST Narrative Authorizing ProviderResult TypeResult StatusLaura Tonio Claros INTERNAL CONTROLS SPECIALIST.CNPLABORATORY Final ResultPerforming OrganizationAddressCity/State/ZIP CodePhone Number [facility] [address] [id number], [place] * MITALI-1 AB (01/17/2025 12:46 PM EST)ComponentValueRef RangeTest MethodAnalysis TimePerformed AtPathologist SignatureJO 1 ANTIBODY QUALNegativeNegative 01/18/2025 10:06 AM [facility] LABComment: Anti-MITALI-1 antibody is used as an aid in diagnosis of polymyositis and dermatomyositis especially with pulmonary involvement. A negative result cannot rule out polymyositis or dermatomyositis. Clinical correlation is required. Test Methodology: Multiplex flow immunoassay. Mitali 1 Antibody<0.2<1.0 AI01/18/2025 10:06 AM [facility] LABSpecimen (Source)Anatomical Location / LateralityCollection Method / VolumeCollection TimeReceived TimeBloodBLOOD SPECIMEN / UnknownVenipuncture / Zikcxki9801/17/2025 12:46 PM EST01/17/2025 12:48 PM EST Narrative Authorizing ProviderResult TypeResult StatusLadestin Claros INTERNAL CONTROLS SPECIALIST.CNPLABORATORY Final ResultPerforming OrganizationAddressCity/State/ZIP CodePhone Number [facility] [address] [id number], [place] * IRON AND TIBC (01/17/2025 12:46 PM EST)ComponentValueRef RangeTest Method Analysis TimePerformed AtPathologist BaoisuhvzWzhn3879 - 186 ug/dL01/17/2025 10:24 PM [facility] GRFMEYC267865 - 386 ug/dL01/17/2025 10:24 PM [facility] LABTransferrin Oacsneviyl37.815.0 - 57.0 %01/17/2025 10:24 PM [facility] LABSpecimen (Source)Anatomical Location / LateralityCollection Method / VolumeCollection TimeReceived TimeBloodBLOOD SPECIMEN / UnknownVenipuncture / Aylhjja8201/17/2025 12:46 PM EST01/17/2025 12:48 PM EST Narrative Authorizing ProviderResult TypeResult StatusLaura Tonio Claros APRN.CNPLABORATORY Final ResultPerforming OrganizationAddressty/State/ZIP CodePhone Number [facility] [address] [place] [address], * FERRITIN (01/17/2025 12:46 PM EST)ComponentValueRef RangeTest MethodAnalysis TimePerformed AtPathologist LyshpnzqfItvenpih87.614.7 - 205.1 ng/mL01/17/2025 10:48 PM [facility] LABSpecimen (Source)Anatomical Location / LateralityCollection Method / VolumeCollection TimeReceived TimeBloodBLOOD SPECIMEN / UnknownVenipuncture / Ehzuxlk8001/17/2025 12:46 PM EST01/17/2025 12:48 PM EST Narrative Authorizing ProviderResult TypeResult StatusLadestin Claros APRN.CNPLABORATORY Final ResultPerforming OrganizationAddressty/State/ZIP CodePhone Number [facility] [address] [place] [address], [place] * (ABNORMAL) COMPREHENSIVE METABOLIC PANEL (01/17/2025 12:46 PM EST)Component ValueRef RangeTest MethodAnalysis TimePerformed AtPathologist Signature Protein, Total7.66.3 - 8.0 g/dL01/17/2025 10:24 PM [facility] LABAlbumin4.93.9 - 4.9 g/dL01/17/2025 10:24 PM [facility] Calcium, Total10.08.5 - 10.2 mg/dL01/17/2025 10:24 PM [facility] LABBilirubin, Total0.40.2 - 1.3 mg/dL01/17/2025 10:24 PM [facility] LABAlkaline Qdeaxczcgfd9026 - 123 U/L103/20/2024 10:24 PM [facility] UCMCMA0333 - 35 U/L103/20/2024 10:24 PM [facility] CTHCYT02(H)7 - 38 U/L103/20/2024 10:24 PM [facility] VAETxnrgvl45 74 - 99 mg/dL01/17/2025 10:24 PM [facility] LABComment: The [place] [employer] Association (ADA) provides guidance for cutoff [...] Standards of Medical Care in Diabetes 2016, [place] [employer]. Diabetes Care. 2016.39(Suppl 1). CLW730 - 21 mg/dL01/17/2025 10:24 PM [facility] LABCreatinine0.80 0.58 - 0.96 mg/dL01/17/2025 10:24 PM [facility] PJTDujcfh216818 - 144 mmol/L103/20/2024 10:24 PM [facility] LABPotassium4.63.7 - 5.1 mmol/L103/20/2024 10:24 PM [facility] LPNJwwdzwgg51369 - 107 mmol/L 01/17/2025 10:24 PM [facility] BNLQP79317 - 30 mmol/L103/20/2024 10:24 PM [facility] LABAnion Aqh369 - 15 mmol/L103/20/2024 10:24 PM [facility] LABEstimated Glomerular Filtration Rate84>=60 mL/min/1.73m 01/17/2025 10:24 PM [facility] LABComment:Estimated Glomerular Filtration Rate (eGFR) is calculated [...] VolumeCollection TimeReceived TimeBloodBLOOD SPECIMEN / UnknownVenipuncture / Ikazkyn4601/17/2025 12:46 PM EST01/17/2025 12:48 PM EST Narrative Authorizing ProviderResult TypeResult StatusDaniella Claros APRN.CNPLABORATORY Final ResultPerforming OrganizationAddressCity/State/ZIP CodePhone Number [facility] [address] [place] [address], * CREATINE KINASE/CK (01/17/2025 12:46 PM EST)ComponentValueRef RangeTest Method Analysis TimePerformed AtPathologist RmsorpugfVI1641 - 196 U/L103/20/2024 10:27 PM [facility] LABSpecimen (Source)Anatomical Location / LateralityCollection Method / VolumeCollection TimeReceived TimeBloodBLOOD SPECIMEN / UnknownVenipuncture / Oqussgs1901/17/2025 12:46 PM EST01/17/2025 12:48 PM EST Narrative Authorizing ProviderResult TypeResult StatusLadestin Claros APRN.CNPLABORATORY Final ResultPerforming OrganizationAddressCity/State/ZIP CodePhone Number [facility] [address] [place] [address], * COMPLETE BLOOD COUNT AND DIFFERENTIAL (01/17/2025 12:46 PM EST)ComponentValue Ref RangeTest MethodAnalysis TimePerformed AtPathologist SignatureWBC8.613.70 - 11.00 k/uL01/17/2025 2:32 PM [facility] LABRBC4.703.90 - 5.20 m/uL01/17/2025 2:32 PM [facility] XRAUgyrurjhyv91.811.5 - 15.5 g/dL01/17/2025 2:32 PM [facility] NAHPxpbkhlgag30.336.0 - 46.0 % 01/17/2025 2:32 PM [facility] WIXWHV91.080.0 - 100.0 fL 01/17/2025 2:32 PM [facility] JKUQXD56.426.0 - 34.0 pg01/17/2025 2:32 PM [facility] JWIAJWP03.630.5 - 36.0 g/dL01/17/2025 2:32 PM [facility] LABRDW-CV12.811.5 - 15.0 %01/17/2025 2:32 PM [facility] LABPlatelet Ilspv132422 - 400 k/uL01/17/2025 2:32 PM [facility] JSARVO72.49.0 - 12.7 fL01/17/2025 2:32 PM [facility] LABNeutrophils %64.6%01/17/2025 2:32 PM [facility] LABAbs Neut5.561.45 - 7.50 k/uL01/17/2025 2:32 PM [facility] LAB Lymphocytes %23.8%01/17/2025 2:32 PM [facility] LABAbs Lymph2.05 1.00 - 4.00 k/uL01/17/2025 2:32 PM [facility] LABMonocytes %9.9% 01/17/2025 2:32 PM [facility] LABAbs Mono0.85<0.87 k/uL 01/17/2025 2:32 PM [facility] LABEosinophils %1.3%01/17/2025 2:32 PM [facility] LABAbs Eosin0.11<0.46 k/uL01/17/2025 2:32 PM [facility] LABBasophils %0.2%01/17/2025 2:32 PM [facility] LABAbs Baso<0.03<0.11 k/uL01/17/2025 2:32 PM [facility] LABImmature Granulocytes %0.2%01/17/2025 2:32 PM [facility] LABAbs Immature Gran<0.03<0.10 k/uL01/17/2025 2:32 PM [facility] LABNRBC0.0/100 WBC01/17/2025 2:32 PM [facility] LABAbsolute nRBC<0.01<0.01 k/uL01/17/2025 2:32 PM [facility] LABDiff Type Auto01/17/2025 2:32 PM [facility] LABSpecimen (Source)Anatomical Location / LateralityCollection Method / VolumeCollection TimeReceived Time BloodBLOOD SPECIMEN / UnknownVenipuncture / Okprqeb3501/17/2025 12:46 PM EST 01/17/2025 12:48 PM EST Narrative Authorizing ProviderResult TypeResult StatusLaura Tonio Claros INTERNAL CONTROLS SPECIALIST.CNPLABORATORY Final ResultPerforming OrganizationAddressCity/State/ZIP CodePhone Number [facility] [address] [phone], [place] * C4 COMPLEMENT (01/17/2025 12:46 PM EST)ComponentValueRef RangeTest Method Analysis TimePerformed AtPathologist SignatureC4 Trmogdzupt2105 - 46 mg/dL 01/17/2025 10:27 PM [facility] LABSpecimen (Source)Anatomical Location / LateralityCollection Method / VolumeCollection TimeReceived Time BloodBLOOD SPECIMEN / UnknownVenipuncture / Adiuctt5501/17/2025 12:46 PM EST 01/17/2025 12:48 PM EST Narrative Authorizing ProviderResult TypeResult StatusLaura Tonio Claros INTERNAL CONTROLS SPECIALIST.CNPLABORATORY Final ResultPerforming OrganizationAddressCity/State/ZIP CodePhone Number [facility] [address] [id number], [place] * (ABNORMAL) C3 COMPLEMENT (01/17/2025 12:46 PM EST)ComponentValueRef RangeTest MethodAnalysis TimePerformed AtPathologist SignatureC3 Nvvaaafvzs961(H)86 - 166 mg/dL01/17/2025 10:24 PM [facility] LABSpecimen (Source) Anatomical Location / LateralityCollection Method / VolumeCollection Time Received TimeBloodBLOOD SPECIMEN / UnknownVenipuncture / Gcaqspg6701/17/2025 12:46 PM EST01/17/2025 12:48 PM EST Narrative Authorizing ProviderResult TypeResult StatusDaniella Claros INTERNAL CONTROLS SPECIALIST.CNPLABORATORY Final ResultPerforming OrganizationAddressCity/State/ZIP CodePhone Number [facility] [address] [place] [address], * ANTI-CENTROMERE AB (01/17/2025 12:46 PM EST)ComponentValueRef RangeTest Method Analysis TimePerformed AtPathologist SignatureCENTROMERE AB QUALNegative Amxbbxpv36/05/2025 10:06 AM [facility] LABCentromere Ab<0.2<1.0 AI01/18/2025 10:06 AM [facility] LABComment: Anti-centromere antibody is used as in aid in diagnosis of systemic sclerosis. Clinical correlationis required. Test Methodology: Multiplex flow immunoassay. Specimen (Source)Anatomical Location / LateralityCollection Method / Volume Collection TimeReceived TimeBloodBLOOD SPECIMEN / UnknownVenipuncture / Unknown 01/17/2025 12:46 PM EST01/17/2025 12:48 PM EST Narrative Authorizing ProviderResult TypeResult StatusDaniella Claros INTERNAL CONTROLS SPECIALIST.CNPLABORATORY Final ResultPerforming OrganizationAddressCity/State/ZIP CodePhone Number [facility] [address] [place] [address], * ANTI SSB BLD (01/17/2025 12:46 PM EST)ComponentValueRef RangeTest Method Analysis TimePerformed AtPathologist SignatureSSB Antibody<0.2<1.0 AI 01/18/2025 10:06 AM [facility] LABComment: Anti-SSB (anti-La) antibody is used as an aid in diagnosis of a variety of systemic autoimmune diseases, especially for Sjogren's syndrome and systemic lupus erythematosus. Clinical correlation is required. Test Methodology: Multiplex flow immunoassay. SSB Antibody OnkbJptbgbuvWxwzvgrh20/05/2025 10:06 AM [facility] LABSpecimen (Source)Anatomical Location / LateralityCollection Method / Volume Collection TimeReceived TimeBloodBLOOD SPECIMEN / UnknownVenipuncture / Unknown 01/17/2025 12:46 PM EST01/17/2025 12:48 PM EST Narrative Authorizing ProviderResult TypeResult StatusLadestin Claros INTERNAL CONTROLS SPECIALIST.CNPLABORATORY Final ResultPerforming OrganizationAddressCity/State/ZIP CodePhone Number [facility] [address] [place] [address], * ANTI SSA BLD (01/17/2025 12:46 PM EST)ComponentValueRef RangeTest Method Analysis TimePerformed AtPathologist SignatureSSA Antibody QualNegative Lfwkdykm37/05/2025 10:06 AM [facility] LABSSA Antibody IgG<0.2 <1.0 AI01/18/2025 10:06 AM [facility] LABComment:Test Methodology: Multiplex flow immunoassay.Specimen (Source)Anatomical Location / LateralityCollection Method / VolumeCollection TimeReceived TimeBloodBLOOD SPECIMEN / UnknownVenipuncture / Yoiabqv8001/17/2025 12:46 PM EST01/17/2025 12:48 PM EST Narrative [facility] - 01/18/2025 10:06 AM EST Anti-SSA (anti-Ro) antibody is used as an aid in diagnosis of a variety of systemic autoimmune diseases, Sjogren's syndrome among others. Clinical correlation is required. Test Methodology: Multiplex flow immunoassay. Authorizing ProviderResult TypeResult StatusDaniella Claros INTERNAL CONTROLS SPECIALIST.CNPLABORATORY Final ResultPerforming OrganizationAddressCity/State/ZIP CodePhone Number [facility] [address] [place] [address], * ALDOLASE BLD (01/17/2025 12:46 PM EST)ComponentValueRef RangeTest Method Analysis TimePerformed AtPathologist SignatureAldolase7.21.5 - 8.1 U/L 01/17/2025 6:52 PM [facility] LABComment:This test was developed, and its performance characteristics determined by the [facility] Department of Pathology and Laboratory Medicine. It has not been cleared or approved by the FDA. The [facility] Department of Pathology and Laboratory Medicine is regulated under CLIA as qualified to perform high- complexity testing. This test is used for clinical purposes. It should not be regarded as investigational or for research.Specimen (Source)Anatomical Location / LateralityCollection Method / VolumeCollection TimeReceived Time BloodBLOOD SPECIMEN / UnknownVenipuncture / Jzyrkzn7701/17/2025 12:46 PM EST 01/17/2025 12:48 PM EST Narrative Authorizing ProviderResult TypeResult StatusLaura Tonio Claros APRN.CNPLABORATORY Final ResultPerforming OrganizationAddressCity/State/ZIP CodePhone Number [facility] [address] [place] [address], * XR CERVICAL 2V FLEX/EXT (01/17/2025 12:31 PM EST)Anatomical RegionLaterality ModalityC-spineOtherSpecimen (Source)Anatomical Location / Laterality Collection Method / VolumeCollection TimeReceived Time01/17/2025 12:31 PM EST Impressions 01/17/2025 2:09 PM EST IMPRESSION: No evidence of inflammatory arthritis in the right shoulder or bilateral hips. ??No evidence of inflammatory sacroiliitis. No evidence of inflammatory spondyloarthropathy seen in the spine. Mild degenerative findings as described. Spring Clipper: PSCB ?? Transcribe Date/Time: Jan ??2024 ??2:02P Dictated by : JESSICA DUNN MD This examination was interpreted and the report reviewed and electronically signed by: JESSICA DUNN MD on Jan ??2024 ??2:07PM ??EST Narrative 01/17/2025 2:09 PM EST * * *Final Report* * * DATE OF EXAM: Jan ??2024 12:31PM ?? AOX ?? [id number] ??- ??XR [...] joints appear relatively preserved. Procedure Note Provider, [facility] [place] - 01/17/2025 * * *Final Report* * [...] the spine. Mild degenerative findings as described. Spring Clipper: ANA Transcribe Date/Time: Jan 17 2025 2:02P [...] the spine. Mild degenerative findings as described. Spring Clipper: ANA ?? Transcribe Date/Time: Jan?2024 ??2:02P Dictated [...] joints appear relatively preserved. Procedure Note Provider, [facility] [place] - 01/17/2025 * * *Final Report* * [...] the spine. Mild degenerative findings as described. Spring Clipper: ANA Transcribe Date/Time: Jan 17 2025 2:02P Dictated by : JESSICA DUNN MD This examination was interpreted and the report reviewed and electronically signed by: JESSICA DUNN MD on Jan 17 2025 2:07PM EST Authorizing ProviderResult TypeResult StatusLaura Tonio Claros INTERNAL CONTROLS SPECIALIST.CNPRAD-PAMA Final Result * XR SHOULDER GENERAL 3V [...] the spine. Mild degenerative findings as described. Spring Clipper: ANA ?? Transcribe Date/Time: Jan?2024 ??2:02P Dictated [...] joints appear relatively preserved. Procedure Note Provider, [facility] [place] - 01/17/2025 * * *Final Report* * [...] the spine. Mild degenerative findings as described. Spring Clipper: ANA Transcribe Date/Time: Jan 17 2025 2:02P Dictated by : JESSICA DUNN MD This examination was interpreted and the report reviewed and electronically signed by: JESSICA DUNN MD on Jan 17 2025 2:07PM EST Authorizing ProviderResult TypeResult StatusLaura Tonio Claros APRN.DEREKRAD-PAMA Final Result * XR LUMBAR GENERAL 3V AP/LAT/L5-S1 (01/17/2025 12:31 PM EST)Anatomical Region LateralityModalityL-spineOtherSpecimen (Source)Anatomical Location / LateralityCollection Method / VolumeCollection TimeReceived Time01/17/2025 12:31 PM EST Impressions 01/17/2025 2:09 PM EST IMPRESSION: No evidence of inflammatory arthritis in the right shoulder or bilateral hips. ??No evidence of inflammatory sacroiliitis. No evidence of inflammatory spondyloarthropathy seen in the spine. Mild degenerative findings as described. Spring Clipper: ANA ?? Transcribe Date/Time: Jan?2024 ??2:02P Dictated [...] joints appear relatively preserved. Procedure Note Provider, [facility] [place] - 01/17/2025 * * *Final Report* * [...] the spine. Mild degenerative findings as described. Spring Clipper: ANA Transcribe Date/Time: Jan 17 2025 2:02P Dictated by : JESSICA DUNN MD This examination was interpreted and the report reviewed and electronically signed by: JESSICA DUNN MD on Jan 17 2025 2:07PM EST Authorizing ProviderResult TypeResult StatusLaura Tonio Claros INTERNAL CONTROLS SPECIALIST.CNPRAD-PAMA Final Result * XR HIP GENERAL 3V [...] the spine. Mild degenerative findings as described. Spring Clipper: ANA ?? Transcribe Date/Time: Jan?2024 ??2:02P Dictated by : JESSICA DUNN MD This examination was interpreted and the report reviewed and electronically signed by: JESSICA DUNN MD on Jan ??2:07PM ??EST Narrative 01/17/2025 2:09 PM EST * * *Final Report* * * DATE OF EXAM: Jan 12:31PM ?? AOX ?? [id number] ??- ??XR [...] joints appear relatively preserved. Procedure Note Provider, [facility] - 01/17/2025 * * *Final Report* * [...] the spine. Mild degenerative findings as described. Spring Clipper: PSCB Transcribe Date/Time: Jan 17 2025 2:02P Dictated by : JESSICA DUNN MD This examination was interpreted and the report reviewed and electronically signed by: JESSICA DUNN MD on Jan 17 2025 2:07PM EST Authorizing ProviderResult TypeResult StatusLaura Tonio Claros APRN.CNPRAD-PAMA Final Result * XR HIP GENERAL 3V PELV/AP/LAT LEFT (01/17/2025 12:31 PM EST)Anatomical Region LateralityModalityHipOtherSpecimen (Source)Anatomical Location / Laterality Collection Method / VolumeCollection TimeReceived Time01/17/2025 12:31 PM EST Impressions 01/17/2025 2:09 PM EST IMPRESSION: No evidence of inflammatory arthritis in the right shoulder or bilateral hips. ??No evidence of inflammatory sacroiliitis. No evidence of inflammatory spondyloarthropathy seen in the spine. Mild degenerative findings as described. Spring Clipper: ANA ?? Transcribe Date/Time: Jan ??2024 ??2:02P [...] joints appear relatively preserved. Procedure Note Provider, [facility] [place] - 01/17/2025 * * *Final Report* * [...] the spine. Mild degenerative findings as described. Spring Clipper: PSCB Transcribe Date/Time: Jan 17 2025 2:02P Dictated by : JESSICA DUNN MD This examination was interpreted and the report reviewed and electronically signed by: JESSICA DUNN MD on Jan 17 2025 2:07PM EST Authorizing ProviderResult TypeResult StatusLaura Tonio Claros APRN.CNPRAD-PAMA Final Result from Last 3 Months Insurance Care Teams Team MemberRelationshipSpecialtyStart DateEnd Florencio Parry MD [address] [place] [address] Family Avdnfwiv36/7/25
--- OUTSIDE RECORDS SUMMARY | 2025-01-22 06:55 | XMS_ITS | Clinical Summary ---
Author Organization [facility] Address [address] [place] [address] Care Team Providers Care Construction Administrator Name Role Phone Florencio Parry MD Primary Care Provider [phone] Allergies Active AllergyReactionsCriticalityNoted GnrgLxluyvbdAxkvhsydls52/20/2023 Other Reaction(s): back pain Noetxymldk95/20/2023 Other Reaction(s): Unknown Medications MedicationSigDispense QuantityRefillsLast FilledStart DateEnd DateStatus simvastatin (Zocor) 20 MG tablet Take 20 mg by mouth at bedtimeActive buPROPion XL (Wellbutrin XL) 300 MG 24 hr tablet Take 300 mg by mouth in the morning.Active Jardiance 10 MG Take 10 mg by mouth in the morning.04/16/2022ctive Januvia 100 MG tablet Take 100 mg by mouth in the morning.Active sertraline (Zoloft) 100 MG tablet Take 100 mg by mouth 1 (one) time each day at the same timeActive ARIPiprazole (Abilify) 5 MG tablet Take 5 mg by mouth in the morning.Active pioglitazone (Actos) 45 MG tablet Take 45 mg by mouth in the morning.Active metFORMIN (Glucophage) 500 MG tablet Take 1,000 mg by mouth in the morning. Take with meals.Active Pediatric Multivitamins-Fl (MultiVitamin + Fluoride) 0.25 MG chewable tablet MultivitaminActive Tart Thapa 1200 MG capsule Tart CherryActive Active Problems No known active problems Encounters DateTypeDepartmentCare QpxpLmhdnrdicix25/13/2025 8:50 AM ESTOffice Visit [facility] [address] [place] [id number] Adrien Jacques, DPM Diabetes mellitus due to underlying condition with diabetic polyneuropathy, without long-term current use of insulin (HCC) (Primary Dx); Pain due to onychomycosis of toenails of both feet; Venous pjwpisbjgqurw56/13/2025amboo flowsheet [facility] [address] [facility] [address] [place] [address] Adrien Jacques DPM 12/27/2024Travelfrom Last 3 Months Family History Medical HistoryRelationNameCommentsDiabetesFatherHeart diseaseFatherHypertension FatherKidney diseaseFatherCancerMotherStrokeMotherRelationNameStatusComments FatherDeceasedMotherAlive Social History Tobacco UseTypesPacks/DayYears UsedDateSmoking Tobacco: Some DaysCigarettes Tobacco Cessation:Ready to Q uit: Not Asked; Counseling Given: Yes Comments:5 or less cigarettes/day CommentsUnknownSex and Gender InformationValueDate RecordedSex Assigned at BirthNot on fileLegal MwoTsmmdz83/15/2023 7:07 PM EDTGender IdentityNot on fileSexual OrientationNot on file Last Filed Vital Signs Vital SignReadingTime TakenCommentsBlood Pressure--Pulse--Temperature-- Respiratory Kjjz668902/27/2024 8:45 AM ESTOxygen Saturation--Inhaled Oxygen Concentration--Nctros302 kg (240 lb)12/27/2024 8:45 AM EVTNmldhw581.6 cm (5' 6 ) 12/27/2024 8:45 AM ESTBody Mass Index38.7412/27/2024 8:45 AM EST Plan of Treatment DateTypeDepartmentCare Team (Latest Contact Info)Rtxqgabpokn28/29/2026 9:10 AM ESTOffice Visit [facility] [address] [facility] [address] [place] [address] Adrien Jacques DPM [address] [facility] [address] [place] [address] Health MaintenanceDue DateLast DoneCommentsCT Afefoiuokjdq12/27/1964Colonoscopy 1963Colorectal Cancer Srvdosrny56/27/1964FIT-DNA1963FIT1963 FOBT1963 4331Gmjfzrbikuuob10/27/1964Pap Smear10/10/1984Cervical Cancer Zdxlbzkal82/27/1994HPV/Zbawsx8910/10/19936411Ywjvyajxx01/27/2004COVID-19 Vaccine (2024- season)509/, 02/09/2021, 07/09/2020, Additional history existsInfluenza EvbhgkdCnedpmgwp11/18/2025, 10/31/2023, 11/01/2022, Additional history existsPneumococcal Vaccine: Pediatrics (0 to 5 Years) and At-Risk Patients (6 to 64 Years)Aged OutNo longer eligible based on patient's age to complete this topic Insurance * Guarantor: Susanne Clark TypeRelation to PatientDate of PhoneBilling AddressPersonal/EhyunqDats00/27/1966 [facility] [place] [address] Care Teams Team MemberRelationshipSpecialtyStart DateEnd Florencio Parry MD [address] [place] [address] PCP - GeneralFamily Hshnqbrg37/20/23
--- OUTSIDE RECORDS SUMMARY | 2025-01-22 06:55 | XMS_ITS | Clinical Summary ---
Author Organization [employer] [facility] tem Address [id number] [address] [place] [address] Care Team Providers Care Theatrical Agent Name Role Phone Florencio Parry MD Primary Care Provider [phone] Allergies Active AllergyReactionsCriticalityNoted XlayQmahvmpxNdrgrvfjga30/02/2025 Dpyouhdrqk58/02/2025 Medications MedicationSigDispense QuantityRefillsLast FilledStart DateEnd DateStatus cyclobenzaprine (FLEXERIL) 10 mg tablet Take 1 tablet (10 mg total) by mouth 3 (three) times a day as needed for muscle spasms.Active pantoprazole (PROTONIX) 40 mg EC tablet Take 1 tablet (40 mg total) by mouth in the morning.Active acetaminophen-codeine (TYLENOL #3) 300-30 mg per tablet Take 1 tablet by mouth every 4 (four) hours as needed for pain.Active simvastatin (ZOCOR) 20 mg tablet Take 1 tablet (20 mg total) by mouth nightly.Active metoprolol tartrate (LOPRESSOR) 50 mg tablet Take 1 tablet (50 mg total) by mouth in the morning and 1 tablet (50 mg total) before bedtime.Active magnesium oxide (MAGOX) 400 mg tablet Take 1 tablet (400 mg total) by mouth in the morning.Active eqhisdoapohj-oabwbtva-cosklz (CENTRUM SILVER) tablet Take 1 tablet by mouth in the morning.Active hyoscyamine (LEVSIN) 0.125 mg/mL solution Take by mouth every 4 (four) hours as needed for bladder spasms.Active insulin glargine (LANTUS) 100 unit/mL injection Inject under the skin nightly.Active Encounters DateTypeDepartmentCare XidpNciyqceuwid00/03/2024 9:30 AM EST - 12/16/2024 10:53 AM ESTEmergency [facility] [address] [place] [address] Nacho Leger DO Lightheadedness (Primary Dx) Discharge Disposition: Home12/16/2024Travelfrom Last 3 Months Social History Tobacco UseTypesPacks/DayYears UsedDateSmoking Tobacco: Never AssessedChildcare AnswerDate OgevqnvdVzkpjlgvfQdoageq70/12/2019EmploymentAnswerDate Recorded CaqqxvnmhzCcgrnpm41/12/2019Hunger ScreeningAnswerDate RecordedWithin the past 12 months we worried whether our food would run out before we got money to buy more.Never True12/16/2024Within the past 12 months the food we bought just didn't last and we didn't have money to get more.Never True12/16/2024 CommentsUnknownSex and Gender InformationValueDate RecordedSex Assigned at Not on fileLegal EwtPqcdrq19/06/2015 11:39 AM EDTGender IdentityNot on file Sexual OrientationNot on file Last Filed Vital Signs Vital SignReadingTime TakenCommentsBlood Froaxtna845/8312/16/2024 10:30 AM EST Fczwx349612/16/2024 10:30 AM NJNJhtyucwwcpk99.7 ??C (99.9 ??F)12/16/2024 9:37 AM ESTRespiratory Vhhm6378 10:30 AM ESTOxygen Qzygbtdmum14%12/16/2024 10:30 AM ESTInhaled Oxygen Concentration--Dbhylh725 kg (224 lb 14.4 oz)12/16/2024 9:37 AM ESTHeight--Body Mass Index-- Plan of Treatment Health MaintenanceDue DateLast DoneCommentsDepression Nvxkfoqry70/27/1976Tobacco Jgnbdxotv12/27/1976Adult BMI Lktllbzsv75/27/1982DTaP,Tdap and Td Vaccines (1 - Tdap)10/10/1982Pap Smear10/10/1984Zoster (Shingles) Vaccine (2 of 2)04/08/2020 02/12/2020RSV ( or age 60+ yrs)Qrjtwnysa38/16/2024COVID-19 Vaccine Dyqtuxfek83/18/2025, 02/09/2021, 07/09/2020, Additional history existsInfluenza HffxkrtVqdoqbnfr57/18/2025, 10/31/2023, 11/01/2022, Additional history exists Medical Devices Not on file Procedures Procedure NamePriorityDate/TimeAssociated DiagnosisCommentsXR CHEST 1 VWSTAT 12/16/2024 9:56 AM EST TROPONIN I, HIGH SENSITIVITY 0 RAIZLBRF92/02/2025 9:52 AM EST TROPONIN I, HIGH SENSITIVITY 0 UKHOXWML65/02/2025 9:52 AM EST BASIC METABOLIC KDOQPTYCX62/02/2025 9:52 AM EST CBC WITH AUTO KIWYWJKXKIHRDZDN25/02/2025 9:52 AM EST EXTRA TUBES BLUE DQOLxstngp37/02/2025 9:51 AM EST EXTRA RRAYZGbwzhnu37/02/2025 9:51 AM EST from Last 3 Months Results * X-ray chest 1 view (12/16/2024 9:56 AM EST)Anatomical RegionLateralityModality Body, ChestN/AComputed RadiographySpecimen (Source)Anatomical Location / LateralityCollection Method / VolumeCollection TimeReceived Time12/16/2024 9:59 AM EST Narrative 12/16/2024 9:59 AM EST Single view chest History:chest pain ??Difficulty breathing, shortness of breath Comparison: None Findings: Single portable view of the chest. No focal opacity, effusion or pneumothorax. Cardiomediastinal silhouette is within normal limits. Impression: No definitive acute cardiopulmonary process. Finalized by Abilio Hearn MD on 12/16/2024 9:59 AM Procedure Note Abilio Hearn MD - 12/16/2024 Single view chest History:chest pain Difficulty breathing, shortness of breath Comparison: None Findings: Single portable view of the chest. No focal opacity, effusion orpneumothorax. Cardiomediastinal silhouette is within normal limits. Impression: No definitive acute cardiopulmonary process. Finalized by Abilio Hearn MD on 12/16/2024 9:59 AM Authorizing ProviderResult TypeResult StatusNacho Leger [facility] DIAGNOSTIC IMAGING ORDERABLESFinal Result * Troponin I, High Sensitivity 0 Hour (12/16/2024 9:52 AM EST)ComponentValueRef RangeTest MethodAnalysis TimePerformed AtPathologist SignatureTROPONIN I, HIGH SENSITIVITY<2<16 ng/L102/16/2024 10:26 AM [facility]pecimen (Source)Anatomical Location / LateralityCollection Method / VolumeCollection TimeReceived TimeBloodVenous blood / UnknownVenipuncture / Afdxlnx8212/16/2024 9:52 AM EST12/16/2024 9:54 AM EST Narrative Authorizing ProviderResult TypeResult StatusRobert Vanna Leger [facility] BLOOD ORDERABLESFinal ResultPerforming OrganizationAddressCity/State/ZIP CodePhone Number [address] * CBC auto differential (12/16/2024 9:52 AM EST)ComponentValueRef RangeTest MethodAnalysis TimePerformed AtPathologist SignatureWBC6.64 - 11 x10E9/L 12/16/2024 10:[address] [facility]OSPITALRBC Count4.813.8 - 5.2 X10E12/L102/16/2024 10:[address] [facility] Moyufavqvi88.011.7 - 15.5 g/dL12/16/2024 10:[address] [facility]OSPITALHematocrit40.935 - 47 %12/16/2024 10:09 AM [facility]ERV8580 - 100 fL12/16/2024 10:[address] [facility] HOSPITALMCH29.027 - 34 pg12/16/2024 10:09 AM [facility]ENTERHC34.132 - 36 g/dL12/16/2024 10:[address] [facility] HOSPITALRDW13.611.5 - 15 %12/16/2024 10:[address] [facility] HOSPITALPlatelet Vgbga545048 - 450 X10E9/L102/16/2024 10:[address] [facility]OSPITALMPV9.57 - 12 fL12/16/2024 10:09 AM EST [facility]Neutrophils %63.4%12/16/2024 10:09 AM EST [facility] ANDERSONLymphocytes %21.6%12/16/2024 10:09 AM EST [facility]ERSONMonocytes %11.0%12/16/2024 10:09 AM EST [facility] HOSPITALEosinophils %3.5%12/16/2024 10:09 AM EST [facility]Basophils %0.5%12/16/2024 10:09 AM EST [facility] ANDERSONNeutrophils Absolute (A)4.21.5 - 6.6 10*3/uL12/16/2024 10:[address] [facility] HOSPITALLymphocytes Absolute1.41.0 - 3.5 10*3/uL12/16/2024 10:09 AM ESTPROBE[facility] HOSPITALMonocytes Absolute0.70.0 - 0.9 10*3/uL12/16/2024 10:09 AM ESTPROBE[facility]LEY [facility]OSPITALEosinophils Absolute0.20.0 - 0.4 10*3/uL12/16/2024 10:[address] [address] [facility]OSPITALBasophils Absolute0.00.0 - 0.2 10*3/uL12/16/2024 10:[address] [facility] HOSPITALDifferential TypeAUTOMATED ZEAAQHRJTRBG92/02/2025 10:09 AM [facility]ITALpecimen (Source)Anatomical Location / LateralityCollection Method / VolumeCollection TimeReceived TimeBloodVenous blood / UnknownVenipuncture / Oehyuci1512/16/2024 9:52 AM EST12/16/2024 9:54 AM EST Narrative Authorizing ProviderResult TypeResult StatusRobert W Africa [facility] BLOOD ORDERABLESFinal ResultPerforming OrganizationAddressCity/State/ZIP CodePhone Number [facility] [address] [place] [address], * (ABNORMAL) Basic Metabolic Panel (12/16/2024 9:52 AM EST)ComponentValueRef RangeTest MethodAnalysis TimePerformed AtPathologist AazfwbfxlCUIWHL863162 - 146 mmol/L102/16/2024 10:[address] [facility] HOSPITALPOTASSIUM 4.53.5 - 5.0 mmol/L102/16/2024 10:[address] [facility] KWGFLVIE79904 - 109 mmol/L102/16/2024 10:[address] [facility] HOSPITALCARBON ZEPPRTG5366 - 32 mmol/L102/16/2024 10:[address] [facility] HOSPITALANION HTS705 - 15 mmol/L102/16/2024 10:[address] [facility] HOSPITALBLOOD UREA ARIKRSVS229 - 27 mg/dL12/16/2024 10:[address] [facility] HOSPITALCREATININE0.810.40 - 1.00 mg/dL 12/16/2024 10:[address] [facility] HOSPITALComment:METHOD TRACEABLE TO IDMS NIJVZHHHATCXZPK402(H)65 - 99 mg/dL12/16/2024 10:14 AM EST [facility] ANDERSONCALCIUM9.38.5 - 10.5 mg/dL12/16/2024 10:[address] [facility] HOSPITALEGFR Non-Race Xtxmdwxet97>=60 ml/min/1.73sq.m102/16/2024 10:[address] [facility] Comment: eGFR not reported due to non-numeric value for Creatinine. Reported eGFR is based on the CKD-EPI 2020 equation that does not use a race coefficient. Specimen (Source)Anatomical Location / LateralityCollection Method / Volume Collection TimeReceived TimeBloodVenous blood / UnknownVenipuncture / Unknown 12/16/2024 9:52 AM EST12/16/2024 9:54 AM EST Narrative Authorizing ProviderResult TypeResult StatusRobert W Leger [facility] BLOOD ORDERABLESFinal ResultPerforming OrganizationAddressCity/State/ZIP CodePhone Number [address] [phone], * Light Blue Top (12/16/2024 9:51 AM EST)ComponentValueRef RangeTest Method Analysis TimePerformed AtPathologist SignatureExtra TubeAuto Resulted 12/16/2024 11:01 AM ESTPROMEDICA DOCTORS MEDICAL CENTERpecimen (Source) Anatomical Location / LateralityCollection Method / VolumeCollection Time Received TimeBloodVenous blood / Oumikjb6512/16/2024 9:51 AM EST12/16/2024 9:55 AM EST Narrative Authorizing ProviderResult TypeResult StatusRobert W Leger [facility] BLOOD ORDERABLESFinal ResultPerforming OrganizationAddressCity/State/ZIP CodePhone Number [address] [phone], from Last 3 Months Insurance MemberSubscriberPlan / Payer (Effective 2024-Present)Name:Susanne Clark Relation to Subscriber:SelfName:Susanne Clark Payer ID:Not on file Group ID:[id number] Type:Not on file Address: [address] [place] [phone] Care Teams Team MemberRelationshipSpecialtyStart DateEnd Date Florencio Parry MD [address] [facility], [place] [address] [facility] - [facility] Nmhbfqai12/2/25
--- OUTSIDE RECORDS SUMMARY | 2025-01-22 06:55 | XMS_ITS | Patient Health Record ---
Author Organization [facility] in [place] Address [address] [place] [address] Care Team Providers Care Escalation Engineer Name Role Phone Quincy Parry Primary Care Provider Allergies Allergen (clinical drug ingredient) Drug/Non Drug Allergy documented on EMR Reaction Allergy Type Onset Date Status Keflexback painDrug AllergyActivelisinoprilLisinoprilUnknownDrug AllergyActive tramadoltraMADoloral lesionsDrug AllergyActive Results Component Value Reference Range Notes CRP Reviewed date:10/22/2024 08:14:48 PM Interpretation: Performing Lab: Notes/Report: [facility] , C Reactive Protein <0.50 <=0.50 mg/dL Performing Lab:see noteML - [facility] LBMAGNESIUM Reviewed date:10/22/2024 08:14:48 PM Interpretation: Performing Lab: Notes/Report: [facility] ,Magnesium1.71.8-2.4 mg/dLPerforming Lab:see noteML - [facility] LB Blood Culture 1 Reviewed date:10/28/2024 01:16:34 PM Interpretation: Performing Lab: Notes/Report: [facility] ,Blood Culture 1See Below For Report Blood Culture 1 NG5D NO GROWTH AT 5 DAYS.^NO GROWTH AT 5 DAYS. Performing Lab:see noteML - [facility] LBBlood Culture 2 Reviewed date:10/28/2024 01:16:34 PM Interpretation: Performing Lab: Notes/Report: [facility] ,Blood Culture 2See Below For Report Blood Culture 2 NG5D NO GROWTH AT 5 DAYS.^NO GROWTH AT 5 DAYS. Performing Lab:see noteML - [facility] LBUA DIP NONAUTO WO MICRO (85748) - IN OFFICE (Not yet reviewed by provider) Interpretation: Performing Lab: Notes/Report: COLORyellowCLARITYcloudyGLUCOSEnegBILIRUBINnegKETONEnegSPECIFIC GRAVITY1.015 VRGCIiwjuiZX3ABGUGDBbgtboKCXNJTTUQKLPdseYSPMYTEdzpLUPXDSFTQ ESTERASElargeUA (Urinalysis, Dipstix only - w/o micro) (Not yet reviewed by provider) Interpretation: Performing Lab: Notes/Report: COLORyellowYellow - Sarah -CLARITYclearClear - ClearGLUCOSE-0 - 133 MG/DLALBUMIN -NEG - NEG MG/DLBILIRUBIN-NEG - NEG MG/DLSPECIFIC GRAVITY1.0201.001 - 1.035 KETONES+NEG - NEG MG/DLBLOOD, UR-PH, UR5.05 - 9UROBILNOGEN-0.2 - 1 MG/DLNITRITE- NEG - NEGBNP Reviewed date:03/21/2024 05:16:30 PM Interpretation: Performing Lab: Notes/Report: [facility] ,NT Pro B Type Natriuretic Pept70.0<=900.0 pg/mLPerforming Lab:see noteML - [facility] LBCRP Reviewed date:03/21/2024 05:16:30 PM Interpretation: Performing Lab: Notes/Report: [facility] ,C Reactive Protein<0.50<=0.50 mg/dLPerforming Lab:see note - [facility] LBPROF 14(COMP METB) Reviewed date:03/21/2024 05:16:30 PM Interpretation: Performing Lab: Notes/Report: [facility] ,Jybhcw125883-623 mmol/LPotassium4.03.5-5.1 mmol/CVznwsptr8384-050 mmol/LCarbon Zbefphk70.521.0-32.0 mmol/LAnion Gap18.8Ucyxvyx28387-876 mg/dLBlood Urea Xiqwquks75.07.0-18.0 mg/dLCreatinine0.950.55-1.02 mg/dLEstimated GFR ( Katty>60>=60 mL/min/1.73m 2Estimated GFR (Non- Tuyet>60>=60 mL/min/1.73m 2BUN Creatinine Ratio20.6Cutgygx2.88.5-10.1 mg/dLBilirubin Total0.60.2-1.0 mg/dL Aspartate Amino Mrcswmocghb2138-51 U/LAlanine Zcwpswduoitvqcef7322-72 U/L Alkaline Lxjmfhxkkin6976-987 U/LTotal Protein7.56.4-8.2 g/dLAlbumin Level3.93.4- 5.0 g/dLGlobulin3.6Albumin Globulin Ratio1.1Performing Lab:see note - [facility] LBTroponin I High Sensitivity Reviewed date:03/21/2024 05:16:30 PM Interpretation: Performing Lab: Notes/Report: [facility] ,Troponin I High Sensitivity7.34.0-51.3 pg/mL CUT-OFF POINTS HAVE BEEN ESTABLISHED BASED ON THE FOURTH UNIVERSAL DEFINITION OF MYOCARDIAL INFARCTION. THE UPPER REFERENCE LIMIT (URL) OF TROPONIN, DEFINED THE 99TH PERCENTILE OF cTnI DISTRIBUTION IN A REFERENCE POPULATION, HAS BEEN CONFIRMED THE DECISION THRESHOLD FOR CT DIAGNOSIS. 99TH PERCENTILE = 51.4 PG/ML NOTE: HIGH-SENSITIVITY TROPONIN ASSAY IS NOT INTENDED TO BE USED IN ISOLATION BUT SHOULD BE INTERPRETED IN CONJUNCTION WITH OTHER DIAGNOSTIC AND CLINICAL INFORMATION. Performing [facility] LBVenous Blood Gas Reviewed date:03/21/2024 05:16:30 PM Interpretation: Performing Lab: Notes/Report: [facility] ,pH VBG7.4277.330-7.619MNP5 VBG33.740.0-52.0 mmHgPerforming Lab:see note - [facility] LBXR chest 1V Reviewed date:03/21/2024 05:16:30 PM Interpretation: Performing Lab: Notes/Report: Source Facility: [facility]-[address] [place] [address] [place] [address] XRay Report Signed Patient: SUSANNE PINZON MR#: [id number] : 1965 Acct:[id number] Age/Sex: 58 / F ADM Date: 03/21/24 Loc: ER Attending Dr: Ordering Physician: Jenna Frost Date of Service: 03/21/24 Procedure(s): XR chest 1V Accession Number(s): [id number] cc: Jaja Parry M.D.; Jenna Frost [place] [id number] Patient Name: SUSANNE PINZON MRN: [id number] date: 1965 Sex: F Assigned Patient Location: ER Current Patient Location: ER Accession/Order Number: [id number] Exam Date: 03/21/2024 14:12 Report Date: 03/21/2024 [...] Signed By: 03/21/24 1436 DD/ 1433 TD/TT: Employee Training Specialist:VITAMIN D 25 [place] Reviewed date:06/13/2024 05:17:46 PM Interpretation: Performing Lab: Notes/Report: [facility] ,Vitamin D44.7 <20 ng/mL Vit D deficient 20-<30 ng/mL Vit D insufficient 30-100 ng/mL Vit D sufficient >100 ng/mL Potential Toxicity Performing Lab:see noteML - [facility] LBUA (CLEAN or CATCH) MICROSCOPIC IF INDICATE Reviewed date:09/07/2024 07:52:27 AM Interpretation: Performing Lab: Notes/Report: [facility] ,Color UrineDK REDYELLOWClarity UrineCLOUDYCLEARSpecific Vernon Urine1.015 1.005-1.025pH UrineCI5.0-9.0Protein UrineCINEG/TRACE mg/dLGlucose Urine UACI NEGATIVE mg/dLBilirubin UrineCINEGATIVEKetones UrineCINEGATIVE mg/dLBlood Urine CINEGATIVENitrite UrineCINEGATIVEUrobilinogen UrineCI0.2-1.0 EU/dLLeukocyte Esterase UrineCINEGATIVEUrine Microscopic IndicatedYESPerforming Lab:see noteML - [facility] LBURINE MICROSCOPIC ONLY Reviewed date:09/07/2024 07:52:27 AM Interpretation: Performing Lab: Notes/Report: [facility] ,WBC Urine5-10NONE SEEN #/HPFRBC Urine>1000-2 #/HPFBacteria UrineSMALLNONE SEEN #/HPFMucus UrineNONE SEENNONE SEENSquamous Epithelial Cell UrineRARENONE/RARE #/LPFCrystals Seen?None SeenNone Seen #/HPFCast Seen?NONE SEENNONE SEEN #/LPF Urine Culture IndicatedYES-FRMCPerforming Lab:see noteML - [facility] LBUrine Culture - [facility] Reviewed date:09/12/2024 11:09:48 PM Interpretation: Performing Lab: Notes/Report: [facility] ,Urine Culture - FRMCSee Below For Report Urine Culture - [facility] >100,000 colonies/ml mixed Urine Culture - FRMCbacterial skin contaminants Urine Culture - [facility] >100,000 colonies/ml mixed Urine Culture - [facility]2 Days Urine Culture - [facility] >100,000 colonies/ml mixed Urine Culture - [facility] Urine Culture - [facility] >100,000 colonies/ml mixed Urine Culture - FRMCTesting performed at [facility] Urine Culture - [facility] >100,000 colonies/ml mixed Urine Culture - [id number] [place] [address] Urine Culture - [facility] >100,000 colonies/ml mixed Performing Lab:see noteML - [facility] LBDIRECT LDL Reviewed date:10/22/2024 08:14:48 PM Interpretation: Performing Lab: Notes/Report: [facility] ,LDL Cholesterol Abrjxp72 <100 mg/dl OPTIMAL 100-129 mg/dl NEAR OR ABOVE OPTIMAL 130-159 mg/dl BORDERLINE HIGH 160-189 mg/dl HIGH >190 mg/dl VERY HIGH Performing Lab:see noteML - [facility] LBFREE T3 Reviewed date:10/22/2024 08:14:48 PM Interpretation: Performing Lab: Notes/Report: [facility] ,Free T32.672.18-3.98 pg/mLPerforming Lab:see note - [facility] LB GLYCOHEMOGLOBIN A1C Reviewed date:10/22/2024 08:14:48 PM Interpretation: Performing Lab: Notes/Report: [facility] ,Glycohemoglobin A1C10.54.5-6.2 % ADA RECOMMENDED LIMIT 4.0 - 6.0 ADA THERAPEUTIC TARGET < 7.0 ACTION SUGGESTED > 7.0 Estimated Average Bmiygqy402Zrldhgrkph Lab:see noteML - [facility] LB LIPID PROFILE Reviewed date:10/22/2024 08:14:48 PM Interpretation: Performing Lab: Notes/Report: [facility] ,Qkvdhurvgonxo547<=150 mg/jQPgqzzyltvgn212<=200 mg/dLHDL Hszafvnzibi2258-96 mg/dL > or =60 mg/dl - LOW CARDIOVASCULAR RISK <40 mg/dl - HIGH CARDIOVASCULAR RISK VLDL ZOVKLMMCVYO757.6Chol HDL Ratio5.6 3.3 - 4.4 LOW RISK 4.4 - 7.1 AVERAGE RISK 7.1 - 11.0 MODERATE RISK >11.0 HIGH RISK Performing Lab:see note - [facility] LBPROF 14(COMP METB) Reviewed date:10/22/2024 08:14:48 PM Interpretation: Performing Lab: Notes/Report: [facility] ,Lwnrxg576856-735 mmol/LPotassium4.23.5-5.1 mmol/TFtpoyjzn7276-543 mmol/LCarbon Wxqkqaj63.221.0-32.0 mmol/LAnion Gap16.7Xnokssh39916-719 mg/dLBlood Urea Qbfvpajg52.07.0-18.0 mg/dLCreatinine0.860.55-1.02 mg/dLEstimated GFR ( Katty>60>=60 mL/min/1.73m 2Estimated GFR (Non- Tuyet>60>=60 mL/min/1.73m 2BUN Creatinine Ratio17.2Urbsixl0.78.5-10.1 mg/dLBilirubin Total0.50.2-1.0 mg/dL Aspartate Amino Snvmlychvmk6488-00 U/LAlanine Okxvbyuklztdazqk1533-78 U/L Alkaline Beluhaqwovg0775-803 U/LTotal Protein8.96.4-8.2 g/dLAlbumin Level4.63.4- 5.0 g/dLGlobulin4.3Albumin Globulin Ratio1.1Performing Lab:see noteML - [facility] LBT4 Reviewed date:10/22/2024 08:14:48 PM Interpretation: Performing Lab: Notes/Report: [facility] ,T4 Thyroxine8.404.80-13.90 ug/dLPerforming Lab:see noteML - [facility] LBTSH Reviewed date:10/22/2024 08:14:48 PM Interpretation: Performing Lab: Notes/Report: [facility] ,Thyroid Stimulating Hormone1.1760.358-3.740 uIU/mLPerforming Lab:see noteML - [facility] LBUA RANDOM W or MICROSCOPIC Reviewed date:10/22/2024 08:14:48 PM Interpretation: Performing Lab: Notes/Report: [facility] ,Color UrineYELLOWYELLOWClarity UrineCLEARCLEARSpecific Vernon Urine1.025 1.005-1.025pH Urine5.55.0-9.0Protein UrineTRACENEG/TRACE mg/dLGlucose Urine UA >=1000NEGATIVE mg/dLBilirubin UrineNEGATIVENEGATIVEKetones UrineNEGATIVENEGATIVE mg/dLBlood UrineNEGATIVENEGATIVENitrite UrineNEGATIVENEGATIVEUrobilinogen Urine 0.20.2-1.0 EU/dLLeukocyte Esterase UrineNEGATIVENEGATIVEWBC Urine0-2NONE SEEN #/HPFRBC UrineNONE SEEN0-2 #/HPFBacteria UrineSMALLNONE SEEN #/HPFMucus Urine NONE SEENNONE SEENSquamous Epithelial Cell UrineFEWNONE/RARE #/LPFCrystals Seen? None SeenNone Seen #/HPFCast Seen?NONE SEENNONE SEEN #/LPFPerforming Lab:see noteML - [facility] LBVITAMIN D 25 [place] Reviewed date:10/22/2024 08:14:48 PM Interpretation: Performing Lab: Notes/Report: [facility] ,Vitamin D38.6 <20 ng/mL Vit D deficient 20-<30 ng/mL Vit D insufficient 30-100 ng/mL Vit D sufficient >100 ng/mL Potential Toxicity Performing Lab:see noteML - [facility] LBErythrocyte Sedimentation Rate Reviewed date:10/22/2024 08:14:48 PM Interpretation: Performing Lab: Notes/Report: [facility] ,Erythrocyte Sedimentation Rate11<=30 mm/hrPerforming Lab:see noteML - [facility] LBECG 12 lead Reviewed date:10/25/2024 07:49:54 PM Interpretation: Performing Lab: Notes/Report: Source Facility: [facility]-[address] [place] [address] Electrocardiograph Report Signed Patient: SUSANNE PINZON MR#: [id number] : 1965 Acct:[id number] Age/Sex: 59 / F ADM Date: 10/22/24 Loc: [place] 214-[address]: Ramírez Platt M.D. Ordering Physician: Mike Au M.D. 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 Signed By: 10/25/24 1331 DD/ 1455 TD/TT: Employee Training Specialist:LACTATE or LACTIC ACID Reviewed date:10/23/2024 02:35:12 PM Interpretation: Performing Lab: Notes/Report: [facility] ,Lactate/Lactic Acid2.60.4-2.0 mmol/L RESULTS CALLED TO FABIANA FIGUEROA RN @BY Mare Ahuja at 2119 Performing Lab:see noteML - [facility] LBABG Battery Oximetry Reviewed date:10/23/2024 02:35:12 PM Interpretation: Performing Lab: Notes/Report: [facility] ,pH ABG7.4477.350-7.450ABG ENO457.535.0-45.0 mmHgPO2 ABG99.980.0-100.0 mmHgHCO3 ABG22.422.0-26.0 mmol/LBase Excess ABG-1.6-2.0-2.0 mmol/LOxygen Saturation ABG 99.0Methemoglobin ABG<1.01.1-1.9 %Carboxyhemoglobin1.11.5-4.9 %Saurav Test POSITIVEPOSITIVEO2 ModeROOM AIRPuncture SiteR RADPerforming Lab:see noteML - [facility] LBXR chest 1V Reviewed date:10/23/2024 02:35:12 PM Interpretation: Performing Lab: Notes/Report: Source Facility: [place] [address] [place] [address] XRay Report Signed Patient: SUSANNE PINZON MR#: [id number] : 1965 Acct:[id number] Age/Sex: 59 / F ADM Date: 10/22/24 Loc: [place] 214-[address]: Ramírez Platt M.D. Ordering Physician: Ramírez Platt M.D. Date of Service: 10/23/24 Procedure(s): XR chest 1V Accession Number(s): [id number] cc: Jaja Parry M.D.; Ramírez Platt M.D. [place] [address] Patient Name: SUSANNE PINZON MRN: [id number] date: 1965 Sex: F Assigned Patient Location: MS Current Patient Location: [place] Accession/Order Number: [id number] Exam Date: 10/23/2024 11:50 Report Date: 10/23/2024 12:22 At the request of: RAMÍREZ PLATT MD Procedure: XR chest 1V PORTABLE AP ERECT CHEST 0140 hours CLINICAL HISTORY: Night sweats COMPARISON: None There is continued slight elevation right hemidiaphragm. The heart is within normal limits. There is no vascular congestion. The lungs, as visualized, are clear. There is no effusion or pneumothorax. The osseous structures are intact. Endplate spurring is visualized. XR/XR chest 1V IMPRESSION: NO ACUTE FINDINGS Impression dictated by: Mitali Birmingham M.D. 10/23/2024 12:22 PM Dictation Location: [place] [address] Electronically authenticated by: [id number] Y Date: 10/23/2024 12:22 Dictated By: Mitali Birmingham M.D. Signed By: 10/23/24 1224 DD/ 1222 TD/TT: Employee Training Specialist:PROF Dela Cruz(COMP METB) Reviewed date:10/23/2024 02:35:12 PM Interpretation: Performing Lab: Notes/Report: [facility] ,Edrsqw451097-111 mmol/LPotassium4.03.5-5.1 mmol/FPnutagni36182-579 mmol/LCarbon Qunpzds85.221.0-32.0 mmol/LAnion Gap16.4Szjpyqj34909-316 mg/dLBlood Urea Tmraepaw36.07.0-18.0 mg/dLCreatinine0.780.55-1.02 mg/dLEstimated GFR ( Katty>60>=60 mL/min/1.73m 2Estimated GFR (Non- Tuyet>60>=60 mL/min/1.73m 2BUN Creatinine Ratio12.4Fqylgcx3.58.5-10.1 mg/dLBilirubin Total0.30.2-1.0 mg/dL Aspartate Amino Qnwmbnucvqv3623-02 U/LAlanine Kjlefamakzkwortn1734-28 U/L Alkaline Eledkzyowml3734-819 U/LTotal Protein7.16.4-8.2 g/dLAlbumin Level3.53.4- 5.0 g/dLGlobulin3.6Albumin Globulin Ratio1.0Performing Lab:see noteML - [facility] LBPHOSPHORUS Reviewed date:10/23/2024 02:35:12 PM Interpretation: Performing Lab: Notes/Report: [facility] ,Phosphorus4.02.6-4.7 mg/dLPerforming Lab:see noteML - [facility] LB MAGNESIUM Reviewed date:10/23/2024 02:35:12 PM Interpretation: Performing Lab: Notes/Report: [facility] ,Magnesium1.61.8-2.4 mg/dLPerforming Lab:see note - [facility] LB LACTATE or LACTIC ACID Reviewed date:10/23/2024 02:35:12 PM Interpretation: Performing Lab: Notes/Report: [facility] ,Lactate/Lactic Acid2.30.4-2.0 mmol/LRESULTS CALLED TO MELISSA TERRAZAS RN at 0648 Performing Lab:see noteML - [facility] LBCRP Reviewed date:10/23/2024 02:35:12 PM Interpretation: Performing Lab: Notes/Report: [facility] ,C Reactive Protein<0.50<=0.50 mg/dLPerforming Lab:see note - [facility] LBCBC AUTO DIFF Reviewed date:10/23/2024 02:35:12 PM Interpretation: Performing Lab: Notes/Report: [facility] ,White Blood Count5.64.0-11.0 10 3/uLRed Blood Count4.324.20-5.40 10 6/uL Fozzrtbauf88.112.0-16.0 g/rOScucngzvrs18.936.0-48.0 %Mean Corpuscular Dgdoga28.7 81.0-99.0 fLMean Corpuscular Viqnsogewz21.326.7-34.0 pgMean Corpuscular HGB Conc 34.629.9-35.2 g/dLRed Cell Distribution Width12.011.0-15.0 %Platelet Ixdfg914 150-450 10 3/uLMean Platelet Uwdrzf87.49.5-13.5 fLNeutrophils Percent Auto55.2 43.0-75.0 %Lymphocytes Percent Auto31.020.5-60.0 %Monocytes Percent Auto11.61.7- 12.0 %Eosinophils Percent Auto1.80.9-7.0 %Basophils Percent Auto0.20.2-2.0 % Immature Granulocytes Pct Auto0.20.0-0.5 %Neutrophils Absolute Auto3.11.4-6.5 10 3/uLLymphocytes Absolute Auto1.71.2-3.8 10 3/uLMonocytes Absolute Auto0.70.3-0.8 10 3/uLEosinophils Absolute Auto0.10.0-0.7 10 3/uLBasophils Absolute Auto0.00.0- 0.1 10 3/uLImmature Granulocytes Abs Auto0.010.00-0.03 10 3/uLPerforming Lab:see noteML - [facility] LBAMMONIA Reviewed date:10/23/2024 02:35:12 PM Interpretation: Performing Lab: Notes/Report: [facility] ,Yljrlht8087-31 umol/LPerforming Lab:see noteML - [facility] LB LACTATE or LACTIC ACID Reviewed date:10/22/2024 08:14:48 PM Interpretation: Performing Lab: Notes/Report: [facility] ,Lactate/Lactic Acid2.40.4-2.0 mmol/LRESULTS CALLED TO MAGGIE CONNER at 1815Performing Lab:see noteML - [facility] LBUrine Culture - [facility] Reviewed date:10/28/2024 01:16:34 PM Interpretation: Performing Lab: Notes/Report: [facility] ,Urine Culture - FRMCSee Below For Report Urine Culture - [facility] >100,000 col/ml Mixed Baylee with Mixed Gram Neg Bacilli Urine Culture - [facility] Urine Culture [facility] >100,000 col/ml Mixed Baylee with Mixed Gram Neg Bacilli Urine Culture - [facility]MCTesting performed at [facility] Urine Culture - [facility] >100,000 col/ml Mixed Baylee with Mixed Gram Neg Bacilli Urine Culture - [id number] [place] [address] Urine Culture - [facility] >100,000 col/ml Mixed Baylee with Mixed Gram Neg Bacilli Performing Lab:see noteML - [facility] LBLACTATE or LACTIC ACID Reviewed date:10/22/2024 08:14:48 PM Interpretation: Performing Lab: Notes/Report: Y [facility] ,Lactate/Lactic Acid2.40.4-2.0 mmol/LRESULTS CALLED TO ALENA CARLISLE LPN Performing Lab:see noteML - [facility] LBIRON Reviewed date:10/22/2024 08:14:48 PM Interpretation: Performing Lab: Notes/Report: [facility] ,Iron93.050.0-170.0 ug/dLPerforming Lab:see noteML - [facility] LBCBC AUTO DIFF Reviewed date:10/22/2024 08:14:48 PM Interpretation: Performing Lab: Notes/Report: [facility] ,White Blood Count12.34.0-11.0 10 3/uLRed Blood Count5.024.20-5.40 10 6/uL Bbrvvuihnn69.012.0-16.0 g/eUTedanjtprj77.936.0-48.0 %Mean Corpuscular Gynpwf65.5 81.0-99.0 fLMean Corpuscular Ozcdrnqfle31.926.7-34.0 pgMean Corpuscular HGB Conc 34.229.9-35.2 g/dLRed Cell Distribution Width11.911.0-15.0 %Platelet Vdkbw354 150-450 10 3/uLMean Platelet Wovjdj88.39.5-13.5 fLNeutrophils Percent Auto73.1 43.0-75.0 %Lymphocytes Percent Auto17.920.5-60.0 %Monocytes Percent Auto7.61.7- 12.0 %Eosinophils Percent Auto0.90.9-7.0 %Basophils Percent Auto0.20.2-2.0 % Immature Granulocytes Pct Auto0.30.0-0.5 %Neutrophils Absolute Auto9.01.4-6.5 10 3/uLLymphocytes Absolute Auto2.21.2-3.8 10 3/uLMonocytes Absolute Auto0.90.3-0.8 10 3/uLEosinophils Absolute Auto0.10.0-0.7 10 3/uLBasophils Absolute Auto0.00.0- 0.1 10 3/uLImmature Granulocytes Abs Auto0.040.00-0.03 10 3/uLPerforming Lab:see noteML - [facility] LBCT abdomen pelvis wo con Reviewed date:09/05/2024 01:05:35 PM Interpretation: Performing Lab: Notes/Report: Source Facility: [facility]-[address] [place] [address] [place] [address] CT Scan Report Signed Patient: SUSANNE PINZON MR#: [id number] : 1965 Acct:[id number] Age/Sex: 58 / F ADM Date: 09/05/24 Loc: ER Attending Dr: Ordering Physician: Vielka Curran Date of Service: 09/05/24 Procedure(s): CT abdomen pelvis wo con Accession Number(s): [id number] cc: Jaja Parry M.D. [place] [address] Patient Name: SUSANNE PINZON MRN: [id number] date: 1965 Sex: F Assigned Patient Location: ER Current Patient Location: ER Accession/Order Number: [id number] Exam Date: 09/05/2024 10:22 Report Date: 09/05/2024 [...] Jr., D.O. 09/05/2024 10:25 AM Dictation Location: [place] [address] Electronically authenticated by: [id number] Y Date: 09/05/2024 10:25 Dictated By: Freedom Foster M.D. Signed By: 09/05/24 1027 DD/ 1025 TD/TT: Employee Training Specialist:Urine Culture - [facility] Reviewed date:09/09/2024 09:33:14 PM Interpretation: Performing Lab: Notes/Report: [facility] ,Urine Culture - FRMCSee Below For Report Urine Culture - [facility] Testing performed at [facility] O:ESCCOL Isolated Urine Culture - [facility] [place] Count Organism: 1.1 Antibiotic Interpretation MADAN Status Urine Culture - [id number] [place] [address] Urine [facility] Testing performed at [facility] O:ESCCOL Isolated Urine Culture - [facility] [place] Count Organism: 1.1 Antibiotic Interpretation MADAN Status Urine Culture - FRMCSee Below For Report Urine Culture - [facility] Testing performed at [facility] O:ESCCOL Isolated Urine Culture - [facility] [place] Count Organism: 1.1 Antibiotic Interpretation MADAN Status Urine Culture - FRMCSee Below For Report Urine Culture [facility] Testing performed at [facility] O:ESCCOL Isolated Urine Culture - [facility] [place] Count Organism: 1.1 Antibiotic Interpretation MADAN Status [facility]rine Culture [facility]>100,000 Urine Culture [facility] Testing performed at [facility] O:ESCCOL Isolated Urine Culture - [facility] [place] Count Organism: 1.1 Antibiotic Interpretation MADAN Status Urine Culture - FRMCSee Below For Report Urine Culture - [facility] Testing performed at [facility] O:ESCCOL Isolated Urine Culture - [facility] [place] Count Organism: 1.1 Antibiotic Interpretation MADAN Status Urine Culture - FRMCAmikacin S F Urine Culture - [facility] Testing performed at [facility] O:ESCCOL Isolated Urine Culture - [facility] [place] Count Organism: 1.1 Antibiotic Interpretation MADAN Status Urine Culture - FRMCAmoxicillin/Clavulanate R F Urine Culture - [facility] Testing performed at [facility] O:ESCCOL Isolated Urine Culture - [facility] [place] Count Organism: 1.1 Antibiotic Interpretation MADAN Status Urine Culture - [facility]CAmpicillin R F Urine [facility] - [facility] Testing performed at [facility] O:ESCCOL Isolated Urine Culture - [facility] [place] Count Organism: 1.1 Antibiotic Interpretation MADAN Status Urine Culture - [facility]CAztreonam S F Urine Culture - [facility] Testing performed at [facility] O:ESCCOL Isolated Urine Culture - [facility] [place] Count Organism: 1.1 Antibiotic Interpretation MADAN Status Urine Culture - [facility]MCCeftazidime S F Urine Culture - [facility] Testing performed at [facility] O:ESCCOL Isolated Urine Culture - [facility] [place] Count Organism: 1.1 Antibiotic Interpretation MADAN Status Urine Culture - FRMCCeftazidime/Avibactam S F Urine [facility] - [facility] Testing performed at [facility] O:ESCCOL Isolated Urine Culture - [facility] [place] Count Organism: 1.1 Antibiotic Interpretation MADAN Status Urine Culture - FRMCCeftolozane/Tazobactam S F Urine [facility] - [facility] Testing performed at [facility] O:ESCCOL Isolated Urine Culture - [facility] [place] Count Organism: 1.1 Antibiotic Interpretation MADAN Status Urine Culture - [facility]CCiprofloxacin S F Urine Culture - [facility] Testing performed at [facility] O:ESCCOL Isolated Urine Culture - [facility] [place] Count Organism: 1.1 Antibiotic Interpretation MADAN Status Urine Culture - FRMCErtapenem S F Urine Culture - [facility] Testing performed at [facility] O:ESCCOL Isolated Urine Culture - [facility] [place] Count Organism: 1.1 Antibiotic Interpretation MADAN Status Urine Culture - FRMCGentamicin S F Urine [facility] - [facility] Testing performed at [facility] O:ESCCOL Isolated Urine Culture - [facility] [place] Count Organism: 1.1 Antibiotic Interpretation MADAN Status Urine Culture - FR[facility]CLevofloxacin S F Urine Culture - [facility] Testing performed at [facility] O:ESCCOL Isolated Urine Culture - [facility] [place] Count Organism: 1.1 Antibiotic Interpretation MADAN Status Urine Culture - FR[facility]CMeropenem S F Urine Culture - [facility] Testing performed at [facility] O:ESCCOL Isolated Urine Culture - [facility] [place] Count Organism: 1.1 Antibiotic Interpretation MADAN Status Urine Culture - FRMCMeropenem/Vaborbactam S F Urine Culture - [facility] Testing performed at [facility] O:ESCCOL Isolated Urine Culture - [facility] [place] Count Organism: 1.1 Antibiotic Interpretation MADAN Status Urine Culture - FRMCNitrofurantoin S F Urine Culture - [facility] Testing performed at [facility] O:ESCCOL Isolated Urine Culture - [facility] [place] Count Organism: 1.1 Antibiotic Interpretation MADAN Status Urine Culture - FR[facility]CTetracycline S F Urine Culture - [facility] Testing performed at [facility] O:ESCCOL Isolated Urine Culture - [facility] [place] Count Organism: 1.1 Antibiotic Interpretation MADAN Status Urine Culture - FRMCTigecycline S F Urine Culture - [facility] Testing performed at [facility] O:ESCCOL Isolated Urine Culture - [facility] [place] Count Organism: 1.1 Antibiotic Interpretation MADAN Status Urine Culture - FRMCTobramycin S F Urine Culture - [facility] Testing performed at [facility] O:ESCCOL Isolated Urine Culture - [facility] [place] Count Organism: 1.1 Antibiotic Interpretation MADAN Status Urine Culture - FRMCAmpicillin/Sulbactam I F Urine Culture - [facility] Testing performed at [facility] O:ESCCOL Isolated Urine Culture - [facility] [place] Count Organism: 1.1 Antibiotic Interpretation MADAN Status Urine Culture - FR[facility]CCefazolin I F Urine Culture - [facility] Testing performed at [facility] O:ESCCOL Isolated Urine Culture - [facility] [place] Count Organism: 1.1 Antibiotic Interpretation MADAN Status Urine Culture - [facility]CCefepime S F Urine Culture - [facility] Testing performed at [facility] O:ESCCOL Isolated Urine Culture - [facility] [place] Count Organism: 1.1 Antibiotic Interpretation MADAN Status Urine Culture - FRMCCeftriaxone S F Urine Culture - [facility] Testing performed at [facility] O:ESCCOL Isolated Urine Culture - [facility] [place] Count Organism: 1.1 Antibiotic Interpretation MADAN Status Urine Culture - FR[facility]CCefuroxime S F Urine Culture - [facility] Testing performed at [facility] O:ESCCOL Isolated Urine Culture - [facility] [place] Count Organism: 1.1 Antibiotic Interpretation MADAN Status Urine Culture - FRMCPiperacillin/Tazobactam S F Urine Culture - [facility] Testing performed at [facility] O:ESCCOL Isolated Urine Culture - [facility] [place] Count Organism: 1.1 Antibiotic Interpretation MADAN Status [facility]ulfa S F Urine Culture - [facility] Testing performed at [facility] O:ESCCOL Isolated Urine Culture - [facility] [place] Count Organism: 1.1 Antibiotic Interpretation MADAN Status Performing Lab:see note ML - [facility] LB SEE REPORT - Editing Intern Id information not found for OBX-specific animation producer legend URINE MICROSCOPIC ONLY Reviewed date:09/05/2024 01:05:35 PM Interpretation: Performing Lab: Notes/Report: [facility] ,WBC Urine>100NONE SEEN #/HPFRBC Trtsz66-164-8 #/HPFBacteria UrineLARGENONE SEEN #/HPFMucus UrineNONE SEENNONE SEENSquamous Epithelial Cell UrineRARENONE/RARE #/LPFCrystals Seen?None SeenNone Seen #/HPFCast Seen?NONE SEENNONE SEEN #/LPF Urine Culture IndicatedYES-FRMCPerforming Lab:see noteML - [facility] LBUA (CLEAN or CATCH) TRANSIT MECHANIC or MICRO IF IND. Reviewed date:09/05/2024 01:05:35 PM Interpretation: Performing Lab: Notes/Report: [facility] ,Color UrineLT. YELLOWYELLOWClarity UrineCLOUDYCLEARSpecific Vernon Urine1.020 1.005-1.025pH Urine6.05.0-9.0Protein Uekdg099FZG/TRACE mg/dLGlucose Urine UA100 NEGATIVE mg/dLBilirubin UrineNEGATIVENEGATIVEKetones UrineNEGATIVENEGATIVE mg/dL Blood UrineLARGENEGATIVENitrite UrineNEGATIVENEGATIVEUrobilinogen Urine1.00.2- 1.0 EU/dLLeukocyte Esterase UrineLARGENEGATIVEUrine Microscopic IndicatedYES Performing Lab:see noteML - [facility] LBCBC AUTO DIFF Reviewed date:09/05/2024 01:05:35 PM Interpretation: Performing Lab: Notes/Report: [facility] ,White Blood Count7.74.0-11.0 10 3/uLRed Blood Count4.274.20-5.40 10 6/uL Pvkvpdwjhu38.312.0-16.0 g/jJOvztuoftpd69.636.0-48.0 %Mean Corpuscular Avduei19.7 81.0-99.0 fLMean Corpuscular Wdzduwdled54.126.7-34.0 pgMean Corpuscular HGB Conc 36.329.9-35.2 g/dLRed Cell Distribution Width12.311.0-15.0 %Platelet Psgqj963 150-450 10 3/uLMean Platelet Qqahnc17.89.5-13.5 fLNeutrophils Percent Auto85.2 43.0-75.0 %Lymphocytes Percent Auto4.320.5-60.0 %Monocytes Percent Auto9.81.7- 12.0 %Eosinophils Percent Auto0.10.9-7.0 %Basophils Percent Auto0.30.2-2.0 % Immature Granulocytes Pct Auto0.30.0-0.5 %Neutrophils Absolute Auto6.61.4-6.5 10 3/uLLymphocytes Absolute Auto0.31.2-3.8 10 3/uLMonocytes Absolute Auto0.80.3- 0.8 10 3/uLEosinophils Absolute Auto0.00.0-0.7 10 3/uLBasophils Absolute Auto0.0 0.0-0.1 10 3/uLImmature Granulocytes Abs Auto0.020.00-0.03 10 3/uLPerforming Lab:see noteML - [facility] LBMM tomosynthesis screening BI Reviewed date:08/26/2024 04:31:10 PM Interpretation: Performing Lab: Notes/Report: Source Facility: [facility]-[address] [place] [address] [place] [address] Mammography Report Signed Patient: SUSANNE PINZON MR#: [id number] : 1965 Acct:[id number] Age/Sex: 58 / F ADM Date: 08/24/24 Loc: MAMMO Attending Dr: Jaja Parry M.D. Ordering Physician: Jaja Parry M.D. Results: Date of Service: 08/24/24 Follow Up: Procedure(s): MM tomosynthesis screening BI Accession Number(s): [id number] cc: Jaja Parry M.D. Patient Name: SUSANNE PINZON MR#: [id number] : 1965 Exam Date: 08/24/2024 Ordering Doctor: [...] melanoma cancer at age 68. LOCATION: [facility] BREAST COMPOSITION: There are scattered areas [...] Signed By: 08/24/24 1044 DD/ 1043 TD/TT: Employee Training Specialist:TSH Reviewed date:06/13/2024 05:17:46 PM Interpretation: Performing Lab: Notes/Report: [facility] ,Thyroid Stimulating Hormone0.4580.358-3.740 uIU/mLPerforming Lab:see noteML - [facility] LBT4 Reviewed date:06/13/2024 05:17:46 PM Interpretation: Performing Lab: Notes/Report: [facility] ,T4 Thyroxine7.204.80-13.90 ug/dLPerforming Lab:see noteML - [facility] LBPROF 14(COMP METB) Reviewed date:06/13/2024 05:17:46 PM Interpretation: Performing Lab: Notes/Report: [facility] ,Jantxr066304-079 mmol/LPotassium3.73.5-5.1 mmol/EHfussfuf53723-830 mmol/LCarbon Xhmdoiq89.821.0-32.0 mmol/LAnion Gap18.7Fusyarp35966-795 mg/dLBlood Urea Ifjwuncl81.07.0-18.0 mg/dLCreatinine1.220.55-1.02 mg/dLEstimated GFR ( Lvfquge73>=60 mL/min/1.73m 2Estimated GFR (Non- Ame45>=60 mL/min/1.73m 2 BUN Creatinine Ratio18.8Jpzspfo8.58.5-10.1 mg/dLBilirubin Total0.60.2-1.0 mg/dL Aspartate Amino Sgycvypmvnl8375-83 U/LAlanine Gxrglavtxfibvcqs9508-84 U/L Alkaline Ykudejkxjfo3263-852 U/LTotal Protein7.36.4-8.2 g/dLAlbumin Level4.13.4- 5.0 g/dLGlobulin3.2Albumin Globulin Ratio1.3Performing Lab:see noteML - [facility] LBLIPID PROFILE Reviewed date:06/13/2024 05:17:46 PM Interpretation: Performing Lab: Notes/Report: [facility] ,Utrbolylimcss448<=150 mg/aUIyvzpmxkpen406<=200 mg/dLHDL Ibzonnpxjmc2221-96 mg/dL > or =60 mg/dl - LOW CARDIOVASCULAR RISK <40 mg/dl - HIGH CARDIOVASCULAR RISK LDL Cholesterol Dopkgcdidj565.0 <100 mg/dl OPTIMAL 100-129 mg/dl NEAR OR ABOVE OPTIMAL 130-159 mg/dl BORDERLINE HIGH 160-189 mg/dl HIGH >190 mg/dl VERY HIGH VLDL LQNRYNHCYAU02.8Chol HDL Ratio4.9 3.3 - 4.4 LOW RISK 4.4 - 7.1 AVERAGE RISK 7.1 - 11.0 MODERATE RISK >11.0 HIGH RISK Performing Lab:see noteML - [facility] LBIRON Reviewed date:06/13/2024 05:17:46 PM Interpretation: Performing Lab: Notes/Report: [facility] ,Iron54.050.0-170.0 ug/dLPerforming Lab:see noteML - [facility] LB GLYCOHEMOGLOBIN A1C Reviewed date:06/13/2024 05:17:46 PM Interpretation: Performing Lab: Notes/Report: [facility] ,Glycohemoglobin A1C11.54.5-6.2 % ADA RECOMMENDED LIMIT 4.0 - 6.0 ADA THERAPEUTIC TARGET < 7.0 ACTION SUGGESTED > 7.0 Estimated Average Kdsifbm492Rxgxikdbsq Lab:see noteML - [facility] LB FREE T3 Reviewed date:06/13/2024 05:17:46 PM Interpretation: Performing Lab: Notes/Report: [facility] ,Free T32.122.18-3.98 pg/mLPerforming Lab:see note - [facility] LB CBC AUTO DIFF Reviewed date:06/13/2024 05:17:46 PM Interpretation: Performing Lab: Notes/Report: [facility] ,White Blood Count13.44.0-11.0 10 3/uLRed Blood Count4.734.20-5.40 10 6/uL Mhcczqsedy22.412.0-16.0 g/iMQhvnxjpqks58.836.0-48.0 %Mean Corpuscular Duprhx23.1 81.0-99.0 fLMean Corpuscular Gwbbhtywhz13.426.7-34.0 pgMean Corpuscular HGB Conc 36.229.9-35.2 g/dLRed Cell Distribution Width11.911.0-15.0 %Platelet Hqpqn305 150-450 10 3/uLMean Platelet Ahhtyr16.89.5-13.5 fLNeutrophils Percent Auto81.5 43.0-75.0 %Lymphocytes Percent Auto9.720.5-60.0 %Monocytes Percent Auto8.21.7- 12.0 %Eosinophils Percent Auto0.00.9-7.0 %Basophils Percent Auto0.10.2-2.0 % Immature Granulocytes Pct Auto0.50.0-0.5 %Neutrophils Absolute Auto10.91.4-6.5 10 3/uLLymphocytes Absolute Auto1.31.2-3.8 10 3/uLMonocytes Absolute Auto1.10.3- 0.8 10 3/uLEosinophils Absolute Auto0.00.0-0.7 10 3/uLBasophils Absolute Auto0.0 0.0-0.1 10 3/uLImmature Granulocytes Abs Auto0.070.00-0.03 10 3/uLPerforming Lab:see noteML - [facility] LBNM leilani perf SPECT rest str Reviewed date:04/25/2024 06:39:09 PM Interpretation: Performing Lab: Notes/Report: Source Facility: [place] [address] Nuclear Medicine Report Signed Patient: SUSANNE PINZON MR#: [id number] : 1965 Acct:[id number] Age/Sex: 58 / F ADM Date: 04/20/24 Loc: CARD Attending Dr: Jaja Parry M.D. Ordering Physician: Jaja Parry M.D. Date of Service: 04/20/24 Procedure(s): NM leilani perf SPECT rest str Accession Number(s): [id number] cc: Jaja Parry M.D. Patient Name: SUSANNE PINZON MR#: [id number] : 1965 Exam Date: 04/20/2024 Ordering Doctor: [...] the study was pending per attending physician [facility] . For more details please [...] Signed By: 04/25/24 1224 DD/ 1223 TD/TT: Employee Training Specialist:CA echo doppler complete Reviewed date:04/22/2024 10:20:54 AM Interpretation: Performing Lab: Notes/Report: Source Facility: [place] [address] Cardiology Report Signed Patient: SUSANNE PINZON MR#: [id number] : 1965 Acct:[id number] Age/Sex: 58 / F ADM Date: 04/20/24 Loc: CARD Attending Dr: Jaja Parry M.D. Ordering Physician: Jaja Parry M.D. Date of Service: 04/20/24 Procedure(s): CA echo doppler complete Accession Number(s): [id number] cc: Jaja Parry M.D. Patient Name: SUSANNE PINZON MR#: [id number] : 1965 Exam Date: 04/20/2024 Ordering Doctor: [...] BARAJAS Signed By: 04/20/241726 DD/ 25 TD/TT: Employee Training Specialist:Venous Blood Gas Reviewed date:04/15/2024 12:55:22 PM Interpretation: Performing Lab: Notes/Report: [facility] ,pH VBG7.3897.330-7.504IMW6 VBG38.140.0-52.0 mmHgPerforming Lab:see noteML - [facility] LBManual Differential Reviewed date:04/15/2024 12:55:22 PM Interpretation: Performing Lab: Notes/Report: [facility] ,Segmented Neutrophils % Ljnifj98.043.0-75.0Lymphocytes Percent Manual2.020.5- 60.0 %Monocytes Percent Manual2.01.7-12.0 %Eosinophils Percent Manual2.00.9-7.0 %Basophils Percent Manual0.00.2-2.0 %Segmented Neut Absolute Manual5.921.4-6.5 10 3/uLBand Neutrophils Absolute0.10.0-0.3 10 3/uLLymphocytes Absolute Manual 0.121.20-3.80 10 3/uLMonocytes Absolute Manual0.120.30-0.80 10 3/uLEosinophils Absolute Manual0.120.00-0.70 10 3/uLBasophils Abs Manual0.000.00-0.10 10 3/uL Performing Lab:see noteML - [facility] LBUA RANDOM W or MICROSCOPIC Reviewed date:04/13/2024 01:06:56 PM Interpretation: Performing Lab: Notes/Report: [facility] ,Color UrineLT. YELLOWYELLOWClarity UrineCLEARCLEARSpecific [place] Urine1.020 1.005-1.025pH Urine5.55.0-9.0Protein UrineNEGATIVENEG/TRACE mg/dLGlucose Urine UA>=1000NEGATIVE mg/dLBilirubin UrineNEGATIVENEGATIVEKetones UrineNEGATIVE NEGATIVE mg/dLBlood UrineNEGATIVENEGATIVENitrite UrineNEGATIVENEGATIVE Urobilinogen Urine0.20.2-1.0 EU/dLLeukocyte Esterase UrineNEGATIVENEGATIVEWBC Urine0-2NONE SEEN #/HPFRBC UrineNONE SEEN0-2 #/HPFBacteria UrineTRACENONE SEEN #/HPFMucus UrineNONE SEENNONE SEENSquamous Epithelial Cell UrineFEWNONE/RARE #/LPFCrystals Seen?None SeenNone Seen #/HPFCast Seen?NONE SEENNONE SEEN #/LPF Urine Culture IndicatedNOPerforming Lab:see noteML - [facility] LB PROF 14(COMP METB) Reviewed date:04/15/2024 12:55:22 PM Interpretation: Performing Lab: Notes/Report: [facility] ,Rqzcnp938116-605 mmol/LPotassium3.73.5-5.1 mmol/UJkomoxjr89178-231 mmol/LCarbon Jrbfpqz65.521.0-32.0 mmol/LAnion Gap17.2Ygmdowi74383-684 mg/dLBlood Urea Evfwdkum58.07.0-18.0 mg/dLCreatinine0.820.55-1.02 mg/dLEstimated GFR ( Katty>60>=60 mL/min/1.73m 2Estimated GFR (Non- Tuyet>60>=60 mL/min/1.73m 2BUN Creatinine Ratio17.4Wmivsjo2.58.5-10.1 mg/dLBilirubin Total1.00.2-1.0 mg/dL Aspartate Amino Wvrnpskqabz0623-04 U/LAlanine Ndvmdrjtktkyhnzb2089-86 U/L Alkaline Rvdhpnepfjz8003-560 U/LTotal Protein6.96.4-8.2 g/dLAlbumin Level3.73.4- 5.0 g/dLGlobulin3.2Albumin Globulin Ratio1.2Performing Lab:see noteML - [facility] LBLIPASE Reviewed date:04/15/2024 12:55:22 PM Interpretation: Performing Lab: Notes/Report: [facility] ,Ncwjlt05.016.0-77.0 U/LPerforming Lab:see noteML - [facility] LB LACTATE or LACTIC ACID Reviewed date:04/15/2024 12:55:22 PM Interpretation: Performing Lab: Notes/Report: [facility] ,Lactate/Lactic Acid1.50.4-2.0 mmol/LPerforming Lab:see noteML - [facility] LBCBC AUTO DIFF Reviewed date:04/15/2024 12:55:22 PM Interpretation: Performing Lab: Notes/Report: [facility] ,White Blood Count6.34.0-11.0 10 3/uLRed Blood Count4.964.20-5.40 10 6/uL Bhqrgaqyhs52.912.0-16.0 g/eAYransqytns46.536.0-48.0 %Mean Corpuscular Lnlzrf45.7 81.0-99.0 fLMean Corpuscular Dettaobcor43.026.7-34.0 pgMean Corpuscular HGB Conc 35.129.9-35.2 g/dLRed Cell Distribution Width12.711.0-15.0 %Platelet Sjglj393 150-450 10 3/uLMean Platelet Yinlqm20.29.5-13.5 fLPerforming Lab:see noteML - [facility] LBPROF 14(COMP METB) Reviewed date:04/13/2024 01:06:56 PM Interpretation: Performing Lab: Notes/Report: [facility] ,Ihqnxq833270-716 mmol/LPotassium4.53.5-5.1 mmol/PCcjcryht2803-303 mmol/LCarbon Hernxtn24.821.0-32.0 mmol/LAnion Gap15.6Uxcfchp08120-464 mg/dLBlood Urea Ictamtsv18.07.0-18.0 mg/dLCreatinine1.000.55-1.02 mg/dLEstimated GFR ( Katty>60>=60 mL/min/1.73m 2Estimated GFR (Non- Ame57>=60 mL/min/1.73m 2 BUN Creatinine Ratio16.2Aapxawo5.78.5-10.1 mg/dLBilirubin Total0.70.2-1.0 mg/dL Aspartate Amino Bgmckvzpxyl7500-34 U/LAlanine Wbzqmulhrlqnqlam3395-93 U/L Alkaline Tljsuqbtelj0776-235 U/LTotal Protein7.16.4-8.2 g/dLAlbumin Level3.83.4- 5.0 g/dLGlobulin3.3Albumin Globulin Ratio1.2Performing Lab:see noteML - [facility] LBLIPASE Reviewed date:04/13/2024 01:06:56 PM Interpretation: Performing Lab: Notes/Report: [facility] ,Jpdnqs81.016.0-77.0 U/LPerforming Lab:see noteML - [facility] LBCBC AUTO DIFF Reviewed date:04/13/2024 01:06:56 PM Interpretation: Performing Lab: Notes/Report: [facility] ,White Blood Count7.44.0-11.0 10 3/uLRed Blood Count4.544.20-5.40 10 6/uL Msaukpfdtg51.712.0-16.0 g/fTPaotgiibhd00.736.0-48.0 %Mean Corpuscular Qqrwfw41.4 81.0-99.0 fLMean Corpuscular Xrywpcfdyc41.226.7-34.0 pgMean Corpuscular HGB Conc 34.529.9-35.2 g/dLRed Cell Distribution Width12.611.0-15.0 %Platelet Aftwe405 150-450 10 3/uLMean Platelet Wkkdpu49.99.5-13.5 fLNeutrophils Percent Auto80.0 43.0-75.0 %Lymphocytes Percent Auto10.820.5-60.0 %Monocytes Percent Auto6.51.7- 12.0 %Eosinophils Percent Auto2.20.9-7.0 %Basophils Percent Auto0.10.2-2.0 % Immature Granulocytes Pct Auto0.40.0-0.5 %Neutrophils Absolute Auto5.91.4-6.5 10 3/uLLymphocytes Absolute Auto0.81.2-3.8 10 3/uLMonocytes Absolute Auto0.50.3- 0.8 10 3/uLEosinophils Absolute Auto0.20.0-0.7 10 3/uLBasophils Absolute Auto0.0 0.0-0.1 10 3/uLImmature Granulocytes Abs Auto0.030.00-0.03 10 3/uLPerforming Lab:see noteML - [facility] LBUS right upper quadrant Reviewed date:03/25/2024 11:49:10 AM Interpretation: Performing Lab: Notes/Report: Source Facility: [place] [address] Ultrasound Report Signed Patient: SUSANNE PINZON MR#: [id number] : 1965 Acct:[id number] Age/Sex: 58 / F ADM Date: 03/22/24 Loc: MS 212-[address]: Jaja Parry M.D. Ordering Physician: Jaja Parry M.D. Date of Service: 03/23/24 Procedure(s): US right upper quadrant Accession Number(s): [id number] cc: Jaja Parry M.D. [place] [address] Patient Name: SUSANNE PINZON MRN: [id number] date: 1965 Sex: F Assigned Patient Location: MS Current Patient Location: MS Accession/Order Number: [id number] Exam Date: 03/23/2024 08:30 Report Date: 03/23/2024 [...] Monse Dawson M.D. Signed By: 03/23/2457 DD/ 3 TD/TT: Employee Training Specialist:Blood Culture 2 Reviewed date:03/28/2024 10:01:42 PM Interpretation: Performing Lab: Notes/Report: [facility] ,Blood Culture 2See Below For Report Blood Culture 2 NG5D NO GROWTH AT 5 DAYS.^NO GROWTH AT 5 DAYS. Performing Lab:see note - [facility] LBBlood Culture 1 Reviewed date:03/28/2024 10:01:42 PM Interpretation: Performing Lab: Notes/Report: [facility] ,Blood Culture 1See Below For Report Blood Culture 1 NG5D NO GROWTH AT 5 DAYS.^NO GROWTH AT 5 DAYS. Performing Lab:see note - [facility] LBPROF CHEM 8 (BAS METB) Reviewed date:03/23/2024 08:52:54 AM Interpretation: Performing Lab: Notes/Report: [facility] ,Isnlog996355-071 mmol/LPotassium4.53.5-5.1 mmol/VGwuesysp02515-090 mmol/LCarbon Ethrodm81.821.0-32.0 mmol/LAnion Gap14.0Nlgyepi82344-062 mg/dLBlood Urea Gyyvdhqt90.07.0-18.0 mg/dLCreatinine0.920.55-1.02 mg/dLEstimated GFR ( Katty>60>=60 mL/min/1.73m 2Estimated GFR (Non- Tuyet>60>=60 mL/min/1.73m 2BUN Creatinine Ratio16.5Sooskhw2.68.5-10.1 mg/dLPerforming Lab:see note - [facility] LBLACTATE or LACTIC ACID Reviewed date:03/23/2024 08:52:54 AM Interpretation: Performing Lab: Notes/Report: N [facility] ,Lactate/Lactic Acid1.60.4-2.0 mmol/LPerforming Lab:see noteML - [facility] LBCBC AUTO DIFF Reviewed date:03/23/2024 08:52:54 AM Interpretation: Performing Lab: Notes/Report: [facility] ,White Blood Count11.14.0-11.0 10 3/uLRed Blood Count5.004.20-5.40 10 6/uL Fetrdryscs56.712.0-16.0 g/lBFmwectnqpm24.036.0-48.0 %Mean Corpuscular Zoafoe89.0 81.0-99.0 fLMean Corpuscular Wngkrveoal55.426.7-34.0 pgMean Corpuscular HGB Conc 34.229.9-35.2 g/dLRed Cell Distribution Width11.711.0-15.0 %Platelet Iudje840 150-450 10 3/uLMean Platelet Ezolnz89.29.5-13.5 fLNeutrophils Percent Auto91.1 43.0-75.0 %Lymphocytes Percent Auto6.620.5-60.0 %Monocytes Percent Auto1.81.7- 12.0 %Eosinophils Percent Auto0.00.9-7.0 %Basophils Percent Auto0.10.2-2.0 % Immature Granulocytes Pct Auto0.40.0-0.5 %Neutrophils Absolute Auto10.11.4-6.5 10 3/uLLymphocytes Absolute Auto0.71.2-3.8 10 3/uLMonocytes Absolute Auto0.20.3- 0.8 10 3/uLEosinophils Absolute Auto0.00.0-0.7 10 3/uLBasophils Absolute Auto0.0 0.0-0.1 10 3/uLImmature Granulocytes Abs Auto0.040.00-0.03 10 3/uLPerforming Lab:see noteML - [facility] LBCT abdomen pelvis w con Reviewed date:03/22/2024 06:44:51 PM Interpretation: Performing Lab: Notes/Report: Source Facility: [facility]-[address] [place] [address] [address] [place] [id number] Scan Report Signed Patient: SUSANNE PINZON MR#: [id number] : 1965 Acct:[id number] Age/Sex: 58 / F ADM Date: 03/22/24 Loc: ER Attending Dr: Ordering Physician: Roro Portillo D.O. Date of Service: 03/22/24 Procedure(s): CT abdomen pelvis w con Accession Number(s): [id number] cc: Jaja Parry M.D. [place] [address] Patient Name: SUSANNE PINZON MRN: [id number] date: 1965 Sex: F Assigned Patient Location: ER Current Patient Location: ER Accession/Order Number: [id number] Exam Date: 03/22/2024 15:35 Report Date: 03/22/2024 [...] Dawson M.D. Signed By: 03/22/24 1613 DD/ 161 TD/TT: Employee Training Specialist:ECG 12 lead Reviewed date:03/23/2024 08:52:54 AM Interpretation: Performing Lab: Notes/Report: Source Facility: [facility]-[address] [place] [address] [place] [address] Electrocardiograph Report Signed Patient: SUSANNE PINZON MR#: [id number] : 1965 Acct:[id number] Age/Sex: 58 / F ADM Date: 03/22/24 Loc: MS 212-[address]: Jaja Parry M.D. Ordering Physician: Roro Portillo D.O. 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 Signed By: 03/23/24 0627 DD/ 1529 TD/TT: Employee Training Specialist:SARS-CoV-2 Ag* Reviewed date:03/22/2024 06:44:51 PM Interpretation: Performing Lab: Notes/Report: [facility] ,SARS-CoV-2 AgNEGATIVENEGATIVE This test has not been FDA cleared [...] terminated or authorization is revoked sooner. Performing Lab:see noteML - [facility] LBTroponin I High Sensitivity Reviewed date:03/22/2024 06:44:51 PM Interpretation: Performing Lab: Notes/Report: [facility] ,Troponin I High Sensitivity4.94.0-51.3 pg/mL CUT-OFF POINTS HAVE BEEN ESTABLISHED BASED ON THE FOURTH UNIVERSAL DEFINITION OF MYOCARDIAL INFARCTION. THE UPPER REFERENCE LIMIT (URL) OF TROPONIN, DEFINED THE 99TH PERCENTILE OF cTnI DISTRIBUTION IN A REFERENCE POPULATION, HAS BEEN CONFIRMED THE DECISION THRESHOLD FOR CT DIAGNOSIS. 99TH PERCENTILE = 51.4 PG/ML NOTE: HIGH-SENSITIVITY TROPONIN ASSAY IS NOT INTENDED TO BE USED IN ISOLATION BUT SHOULD BE INTERPRETED IN CONJUNCTION WITH OTHER DIAGNOSTIC AND CLINICAL INFORMATION. Performing Lab:see noteML - [facility] LBUA (CLEAN or CATCH) TRANSIT MECHANIC or MICRO IF IND. Reviewed date:03/22/2024 06:44:51 PM Interpretation: Performing Lab: Notes/Report: [facility] ,Color UrineYELLOWYELLOWClarity UrineCLEARCLEARSpecific [place] Urine1.025 1.005-1.025pH Urine6.05.0-9.0Protein UrineNEGATIVENEG/TRACE mg/dLGlucose Urine UA>=1000NEGATIVE mg/dLBilirubin UrineNEGATIVENEGATIVEKetones UrineTRACENEGATIVE mg/dLBlood UrineNEGATIVENEGATIVENitrite UrineNEGATIVENEGATIVEUrobilinogen Urine 0.20.2-1.0 EU/dLLeukocyte Esterase UrineNEGATIVENEGATIVEUrine Microscopic IndicatedNOPerforming Lab:see noteML - [facility] LBPROF 14(COMP METB) Reviewed date:03/22/2024 06:44:51 PM Interpretation: Performing Lab: Notes/Report: [facility] ,Hmnzzq458947-090 mmol/LPotassium4.03.5-5.1 mmol/SYjjqnsgb60440-430 mmol/LCarbon Ibeyzyd52.921.0-32.0 mmol/LAnion Gap17.5Tosmrkj56421-109 mg/dLBlood Urea Irfqzeav63.07.0-18.0 mg/dLCreatinine1.000.55-1.02 mg/dLEstimated GFR ( Katty>60>=60 mL/min/1.73m 2Estimated GFR (Non- Ame57>=60 mL/min/1.73m 2 BUN Creatinine Ratio20.5Ndnzvih0.88.5-10.1 mg/dLBilirubin Total0.70.2-1.0 mg/dL Aspartate Amino Oshvoerwyer8551-09 U/LAlanine Jqrygrpxebucykkh3930-34 U/L Alkaline Sykrpmtcvrw7854-453 U/LTotal Protein7.46.4-8.2 g/dLAlbumin Level3.83.4- 5.0 g/dLGlobulin3.6Albumin Globulin Ratio1.1Performing Lab:see noteML - [facility] LBLIPASE Reviewed date:03/22/2024 06:44:51 PM Interpretation: Performing Lab: Notes/Report: [facility] ,Xtaxve76.016.0-77.0 U/LPerforming Lab:see note - [facility] LB LACTATE or LACTIC ACID Reviewed date:03/23/2024 08:52:54 AM Interpretation: Performing Lab: Notes/Report: [facility] ,Lactate/Lactic Acid2.60.4-2.0 mmol/L RESULTS CALLED TO [facility] Gerri Hunter RN @BY [place] at 0023 Performing Lab:see noteML - [facility] LBINFLUENZA A AND B AG Reviewed date:03/22/2024 06:44:51 PM Interpretation: Performing Lab: Notes/Report: [facility] ,Influenza Virus A AntigenNegative Negative for Flu A protein antigen. Infection due to Flu A cannot be ruled out. Flu A antigen in the sample may be below the detection limit of the test. Influenza Virus B AntigenNegative Negative for Flu B protein antigen. Infection due to Flu B cannot be ruled out. Flu B antigen in the sample may be below the detection limit of the test. Performing Lab:see noteML - [facility] LBCBC AUTO DIFF Reviewed date:03/22/2024 06:44:51 PM Interpretation: Performing Lab: Notes/Report: [facility] ,White Blood Count11.34.0-11.0 10 3/uLRed Blood Count5.704.20-5.40 10 6/uL Irleurogaa21.012.0-16.0 g/yTIuxxfbqoqr47.536.0-48.0 %Mean Corpuscular Wfjbyn53.8 81.0-99.0 fLMean Corpuscular Blkfnfvnij56.826.7-34.0 pgMean Corpuscular HGB Conc 34.329.9-35.2 g/dLRed Cell Distribution Width12.011.0-15.0 %Platelet Hdbev635 150-450 10 3/uLMean Platelet Epnajt18.79.5-13.5 fLNeutrophils Percent Auto69.1 43.0-75.0 %Lymphocytes Percent Auto18.720.5-60.0 %Monocytes Percent Auto10.71.7- 12.0 %Eosinophils Percent Auto0.90.9-7.0 %Basophils Percent Auto0.20.2-2.0 % Immature Granulocytes Pct Auto0.40.0-0.5 %Neutrophils Absolute Auto7.81.4-6.5 10 3/uLLymphocytes Absolute Auto2.11.2-3.8 10 3/uLMonocytes Absolute Auto1.20.3- 0.8 10 3/uLEosinophils Absolute Auto0.10.0-0.7 10 3/uLBasophils Absolute Auto0.0 0.0-0.1 10 3/uLImmature Granulocytes Abs Auto0.050.00-0.03 10 3/uLPerforming Lab:see noteML - [facility] LBAMYLASE Reviewed date:03/22/2024 06:44:50 PM Interpretation: Performing Lab: Notes/Report: [facility] ,Vdlhqoc8669-231 U/LPerforming Lab:see noteML - [facility] LBECG 12 lead Reviewed date:03/23/2024 08:52:54 AM Interpretation: Performing Lab: Notes/Report: Source Facility: [facility]-[address] [place] [address] [place] [address] Electrocardiograph Report Signed Patient: SUSANNE PINZON MR#: [id number] : 1965 Acct:[id number] Age/Sex: 58 / F ADM Date: 03/21/24 Loc: ER Attending Dr: Ordering Physician: Jenna Frost Date of Service: 03/21/24 Procedure(s): ECG 12 lead Accession Number(s): [id number] cc: [facility] Test Date: 2024-03-21 Pat Name: SUSANNE PINZON Department: Room: - Gender: Female 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 Signed By: 03/23/24 0626 DD/ 1357 TD/TT: Employee Training Specialist:SARS-CoV-2 Ag* Reviewed date:03/21/2024 05:16:30 PM Interpretation: Performing Lab: Notes/Report: [facility] ,SARS-CoV-2 AgNEGATIVENEGATIVE This test has not been FDA cleared [...] terminated or authorization is revoked sooner. Performing Lab:see noteML - [facility] LBErythrocyte Sedimentation Rate Reviewed date:03/21/2024 05:16:30 PM Interpretation: Performing Lab: Notes/Report: [facility] ,Erythrocyte Sedimentation Rate14<=30 mm/hrPerforming Lab:see noteML - [facility] LBProthrombin Time INR Reviewed date:03/21/2024 05:16:30 PM Interpretation: Performing Lab: Notes/Report: [facility] ,Prothrombin Time11.19.0-11.6 secINR1.05 DESIRED INR: 2.0-3.0 CONDITIONS NOT LISTED BELOW 2.5-3.5 FOR PROSTHETIC HEART VALVE REPLACEMENT 2.5-3.5 RECURRENT THROMBOSIS Performing Lab:see noteML - [facility] LBLIPASE Reviewed date:03/21/2024 05:16:30 PM Interpretation: Performing Lab: Notes/Report: [facility] ,Nnumcz55.016.0-77.0 U/LPerforming Lab:see noteML - [facility] LB LACTATE or LACTIC ACID Reviewed date:03/21/2024 05:16:30 PM Interpretation: Performing Lab: Notes/Report: [facility] ,Lactate/Lactic Acid2.60.4-2.0 mmol/LRESULTS CALLED TO JENNA SERRANO AT 1458Performing Lab:see noteML - [facility] LBINFLUENZA A AND B AG Reviewed date:03/21/2024 05:16:30 PM Interpretation: Performing Lab: Notes/Report: [facility] ,Influenza Virus A AntigenNegative Negative for Flu A protein antigen. Infection due to Flu A cannot be ruled out. Flu A antigen in the sample may be below the detection limit of the test. Influenza Virus B AntigenNegative Negative for Flu B protein antigen. Infection due to Flu B cannot be ruled out. Flu B antigen in the sample may be below the detection limit of the test. Performing Lab:see noteML - [facility] LBCBC AUTO DIFF Reviewed date:03/21/2024 05:16:30 PM Interpretation: Performing Lab: Notes/Report: [facility] ,White Blood Count12.64.0-11.0 10 3/uLRed Blood Count5.214.20-5.40 10 6/uL Nfyanbbpov60.512.0-16.0 g/lVEpygpjdlyi27.836.0-48.0 %Mean Corpuscular Skswvn73.0 81.0-99.0 fLMean Corpuscular Wzfraodele00.826.7-34.0 pgMean Corpuscular HGB Conc 34.629.9-35.2 g/dLRed Cell Distribution Width11.911.0-15.0 %Platelet Harwv692 150-450 10 3/uLMean Platelet Tsdwmf68.39.5-13.5 fLNeutrophils Percent Auto76.1 43.0-75.0 %Lymphocytes Percent Auto14.920.5-60.0 %Monocytes Percent Auto8.11.7- 12.0 %Eosinophils Percent Auto0.10.9-7.0 %Basophils Percent Auto0.20.2-2.0 % Immature Granulocytes Pct Auto0.60.0-0.5 %Neutrophils Absolute Auto9.61.4-6.5 10 3/uLLymphocytes Absolute Auto1.91.2-3.8 10 3/uLMonocytes Absolute Auto1.00.3- 0.8 10 3/uLEosinophils Absolute Auto0.00.0-0.7 10 3/uLBasophils Absolute Auto0.0 0.0-0.1 10 3/uLImmature Granulocytes Abs Auto0.070.00-0.03 10 3/uLPerforming Lab:see noteML - [facility] LBTroponin I High Sensitivity Reviewed date:03/18/2024 04:31:56 PM Interpretation: Performing Lab: Notes/Report: [facility] ,Troponin I High Sensitivity5.04.0-51.3 pg/mL CUT-OFF POINTS HAVE BEEN ESTABLISHED BASED ON THE FOURTH UNIVERSAL DEFINITION OF MYOCARDIAL INFARCTION. THE UPPER REFERENCE LIMIT (URL) OF TROPONIN, DEFINED THE 99TH PERCENTILE OF cTnI DISTRIBUTION IN A REFERENCE POPULATION, HAS BEEN CONFIRMED THE DECISION THRESHOLD FOR CT DIAGNOSIS. 99TH PERCENTILE = 51.4 PG/ML NOTE: HIGH-SENSITIVITY TROPONIN ASSAY IS NOT INTENDED TO BE USED IN ISOLATION BUT SHOULD BE INTERPRETED IN CONJUNCTION WITH OTHER DIAGNOSTIC AND CLINICAL INFORMATION. Performing Lab:see noteML - [facility] LBCT angio chest Reviewed date:03/18/2024 04:31:56 PM Interpretation: Performing Lab: Notes/Report: Source Facility: [facility]-[address] [place] [address] [place] [address] CT Scan Report Signed Patient: SUSANNE PINZON MR#: [id number] : 1965 Acct:[id number] Age/Sex: 58 / F ADM Date: 03/17/24 Loc: ER Attending Dr: Ordering Physician: Vielka Curran Date of Service: 03/17/24 Procedure(s): CT angio chest Accession Number(s): [id number] cc: Jaja Parry M.D. [place] [address] Patient Name: SUSANNE PINZON MRN: [id number] date: 1965 Sex: F Assigned Patient Location: ER Current Patient Location: ED.MAIN Accession/Order Number: [id number] Exam Date: 03/17/2024 17:12 Report Date: 03/17/2024 [...] M.D. Signed By: 03/17/241916 DD/ 13 TD/TT: Employee Training Specialist:XR chest 1V Reviewed date:03/17/2024 05:05:33 PM Interpretation: Performing Lab: Notes/Report: Source Facility: [place] [address] XRay Report Signed Patient: SUSANNE PINZON MR#: [id number] : 1965 Acct:[id number] Age/Sex: 58 / F ADM Date: 03/17/24 Loc: ER Attending Dr: Ordering Physician: Vielka Curran Date of Service: 03/17/24 Procedure(s): XR chest 1V Accession Number(s): [id number] cc: Jaja Parry M.D.; Vielka Curran [place] [address] Patient Name: SUSANNE PINZON MRN: [id number] date: 1965 Sex: F Assigned Patient Location: ER Current Patient Location: ER Accession/Order Number: [id number] Exam Date: 03/17/2024 16:00 Report Date: 03/17/2024 [...] Ibarra M.D. Signed By: 03/17/24 1658 DD/ 55 TD/TT: Employee Training Specialist:ECG 12 lead Reviewed date:03/19/2024 09:03:34 PM Interpretation: Performing Lab: Notes/Report: Source Facility: [place] [address] [place] [address] Electrocardiograph Report Signed Patient: SUSANNE PINZON MR#: [id number] : 1965 Acct:[id number] Age/Sex: 58 / F ADM Date: 03/17/24 Loc: ER Attending Dr: Ordering Physician: Vielka Curran Date of Service: 03/17/24 Procedure(s): ECG 12 lead Accession Number(s): [id number] cc: [facility] Test Date: 2024-03-17 Pat Name: SUSANNE PINZON Department: Room: - Gender: Female 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 Signed By: 03/19/24 1334 DD/ 1543 TD/TT: Employee Training Specialist:Troponin I High Sensitivity Reviewed date:03/17/2024 04:42:02 PM Interpretation: Performing Lab: Notes/Report: [facility] ,Troponin I High Sensitivity<4.04.0-51.3 pg/mL CUT-OFF POINTS HAVE BEEN ESTABLISHED BASED ON THE FOURTH UNIVERSAL DEFINITION OF MYOCARDIAL INFARCTION. THE UPPER REFERENCE LIMIT (URL) OF TROPONIN, DEFINED THE 99TH PERCENTILE OF cTnI DISTRIBUTION IN A REFERENCE POPULATION, HAS BEEN CONFIRMED THE DECISION THRESHOLD FOR CT DIAGNOSIS. 99TH PERCENTILE = 51.4 PG/ML NOTE: HIGH-SENSITIVITY TROPONIN ASSAY IS NOT INTENDED TO BE USED IN ISOLATION BUT SHOULD BE INTERPRETED IN CONJUNCTION WITH OTHER DIAGNOSTIC AND CLINICAL INFORMATION. Performing Lab:see note - [facility] LBProthrombin Time INR Reviewed date:03/17/2024 04:42:02 PM Interpretation: Performing Lab: Notes/Report: [facility] ,Prothrombin Time10.69.0-11.6 secINR1.00 DESIRED INR: 2.0-3.0 CONDITIONS NOT LISTED BELOW 2.5-3.5 FOR PROSTHETIC HEART VALVE REPLACEMENT 2.5-3.5 RECURRENT THROMBOSIS Performing Lab:see note - [facility] LBPROF 14(COMP METB) Reviewed date:03/17/2024 04:42:02 PM Interpretation: Performing Lab: Notes/Report: [facility] ,Puezyx932859-338 mmol/LPotassium4.23.5-5.1 mmol/QSfueiuwg0114-634 mmol/LCarbon Ljcvsiu18.221.0-32.0 mmol/LAnion Gap16.1Ynluccu65190-778 mg/dLBlood Urea Eyildzwl42.07.0-18.0 mg/dLCreatinine1.090.55-1.02 mg/dLEstimated GFR ( Katty>60>=60 mL/min/1.73m 2Estimated GFR (Non- Ame51>=60 mL/min/1.73m 2 BUN Creatinine Ratio14.3Franxoq8.18.5-10.1 mg/dLBilirubin Total0.40.2-1.0 mg/dL Aspartate Amino Pvisttqymhx8571-23 U/LAlanine Rtmwlqjxlqauupfx6873-59 U/L Alkaline Prsnfnjnulp4704-827 U/LTotal Protein7.46.4-8.2 g/dLAlbumin Level3.93.4- 5.0 g/dLGlobulin3.5Albumin Globulin Ratio1.1Performing Lab:see note - [facility] LBCBC AUTO DIFF Reviewed date:03/17/2024 04:42:02 PM Interpretation: Performing Lab: Notes/Report: [facility] ,White Blood Count8.84.0-11.0 10 3/uLRed Blood Count4.924.20-5.40 10 6/uL Yiyvefjswb09.512.0-16.0 g/mQEtmarkhoyz46.036.0-48.0 %Mean Corpuscular Hlwckh26.4 81.0-99.0 fLMean Corpuscular Jclagbzoxw57.526.7-34.0 pgMean Corpuscular HGB Conc 33.729.9-35.2 g/dLRed Cell Distribution Width11.911.0-15.0 %Platelet Iwupw545 150-450 10 3/uLMean Platelet Qmrdtr58.39.5-13.5 fLNeutrophils Percent Auto72.7 43.0-75.0 %Lymphocytes Percent Auto16.520.5-60.0 %Monocytes Percent Auto8.61.7- 12.0 %Eosinophils Percent Auto1.50.9-7.0 %Basophils Percent Auto0.20.2-2.0 % Immature Granulocytes Pct Auto0.50.0-0.5 %Neutrophils Absolute Auto6.41.4-6.5 10 3/uLLymphocytes Absolute Auto1.51.2-3.8 10 3/uLMonocytes Absolute Auto0.80.3- 0.8 10 3/uLEosinophils Absolute Auto0.10.0-0.7 10 3/uLBasophils Absolute Auto0.0 0.0-0.1 10 3/uLImmature Granulocytes Abs Auto0.040.00-0.03 10 3/uLPerforming Lab:see note - [facility] LBBNP Reviewed date:03/17/2024 04:42:02 PM Interpretation: Performing Lab: Notes/Report: [facility] ,NT Pro B Type Natriuretic Pept18.0<=900.0 pg/mLPerforming Lab:see note - [facility] LBUA (Urinalysis, Dipstix only - w/o micro) Reviewed date:12/28/2024 11:26:12 AM Interpretation: Performing Lab: Notes/Report: COLORyellowYellow - Sarah -CLARITYclearClear - ClearGLUCOSE-0 - 133 MG/DLALBUMIN -NEG - NEG MG/DLBILIRUBIN+NEG - NEG MG/DLSPECIFIC GRAVITY1.0151.001 - 1.035 KETONES+NEG - NEG MG/DLBLOOD, UR+PH, UR6.05 - 9UROBILNOGEN-0.2 - 1 MG/DLNITRITE+ NEG - NEGVitamin B12 Reviewed date:10/25/2024 07:49:54 PM Interpretation: Performing Lab: Notes/Report: [facility] ,Vitamin E71430893-1070 pg/mL Performed at: [address] [id number] Store Consultant: Jeffrey Smith PhD, Phone: [phone] Performing Lab:see [facility] [place] LBLACTATE or LACTIC ACID Reviewed date:10/24/2024 12:50:43 PM Interpretation: Performing Lab: Notes/Report: [facility] ,Lactate/Lactic Acid0.60.4-2.0 mmol/LPerforming Lab:see [facility] LBLACTATE or LACTIC ACID Reviewed date:10/23/2024 02:35:12 PM Interpretation: Performing Lab: Notes/Report: [facility] ,Lactate/Lactic Acid2.60.4-2.0 mmol/LRESULTS CALLED TO SATISH HENDERSON RN at 1008Performing Lab:see [facility] LBVitamin B1 (Thiamine), Blood Reviewed date:10/30/2024 09:01:30 AM Interpretation: Performing Lab: Notes/Report: [facility] ,Vitamin B1 (Thiamine), Wahfm573.166.5-200.0 nmol/L This test was developed and its performance characteristics determined by [facility]. It has not been cleared or approved by the Food and Drug Administration. Performed at: [address] [id number] Store Consultant: Marcia Zambrano MD, Phone: [phone] Performing Lab:see [facility] LBECG 12 lead Reviewed date:09/07/2024 07:52:27 AM Interpretation: Performing Lab: Notes/Report: Source Facility: [facility]-[address] [place] [address] [facility] [address] [place] [address] Electrocardiograph Report Signed Patient: SUSANNE PINZON MR#: [id number] : 1965 Acct:[id number] Age/Sex: 58 / F ADM Date: 09/05/24 Loc: ER Attending Dr: Ordering Physician: Vielka Curran Date of Service: 09/05/24 Procedure(s): ECG 12 lead Accession Number(s): [id number] cc: [facility] Test Date: 2024-09-05 Pat Name: SUSANNE PINZON Department: Room: - Gender: Female Building 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 Measurements Intervals [place] Rate: 103 P: 61 AR: 142 QRS: 41 QRSD: 90 T: 37 QT: 346 QTc: 406 Interpretive Statements 1120 Sinus tachycardia Otherwise normal ECG Compared to ECG 03/22/2024 15:29:49 No significant changes Electronically Signed On 09-07-2024 6:37:59 EDT by DIANA BARAJAS M.D. Dictated By: DIANA BARAJAS Signed By: 09/07/24 0638 DD/ 0832 TD/TT: Employee Training Specialist:Troponin I High Sensitivity Reviewed date:09/05/2024 01:05:35 PM Interpretation: Performing Lab: Notes/Report: [facility] ,Troponin I High Sensitivity<4.04.0-51.3 pg/mL CUT-OFF POINTS HAVE BEEN ESTABLISHED BASED ON THE FOURTH UNIVERSAL DEFINITION OF MYOCARDIAL INFARCTION. THE UPPER REFERENCE LIMIT (URL) OF TROPONIN, DEFINED THE 99TH PERCENTILE OF cTnI DISTRIBUTION IN A REFERENCE POPULATION, HAS BEEN CONFIRMED THE DECISION THRESHOLD FOR CT DIAGNOSIS. 99TH PERCENTILE = 51.4 PG/ML NOTE: HIGH-SENSITIVITY TROPONIN ASSAY IS NOT INTENDED TO BE USED IN ISOLATION BUT SHOULD BE INTERPRETED IN CONJUNCTION WITH OTHER DIAGNOSTIC AND CLINICAL INFORMATION. Performing Lab:see noteML - [facility] LBPROF 14(COMP METB) Reviewed date:09/05/2024 01:05:35 PM Interpretation: Performing Lab: Notes/Report: [facility] ,Cmupkv014189-696 mmol/LPotassium3.73.5-5.1 mmol/ATffzghyx11891-827 mmol/LCarbon Socjotp57.721.0-32.0 mmol/LAnion Gap18.8Creogxi62220-755 mg/dLBlood Urea Zucqcyko95.07.0-18.0 mg/dLCreatinine1.280.55-1.02 mg/dLEstimated GFR ( Ucxgqnh78>=60 mL/min/1.73m 2Estimated GFR (Non- Ame43>=60 mL/min/1.73m 2 BUN Creatinine Ratio20.0Iwkssdt1.98.5-10.1 mg/dLBilirubin Total0.90.2-1.0 mg/dL Aspartate Amino Ozhyvsrvsjd5233-24 U/LAlanine Nblbtyignocfiufy9822-92 U/L Alkaline Eukquxbgeek50756-579 U/LTotal Protein7.16.4-8.2 g/dLAlbumin Level3.4 3.4-5.0 g/dLGlobulin3.7Albumin Globulin Ratio0.9Performing Lab:see noteML - [facility] LBMAGNESIUM Reviewed date:09/05/2024 01:05:35 PM Interpretation: Performing Lab: Notes/Report: [facility] ,Magnesium1.31.8-2.4 mg/dLPerforming Lab:see note - [facility] LB LIPASE Reviewed date:09/05/2024 01:05:35 PM Interpretation: Performing Lab: Notes/Report: [facility] ,Iicfix75.016.0-77.0 U/LPerforming Lab:see noteML - [facility] LB LACTATE or LACTIC ACID Reviewed date:09/05/2024 01:05:35 PM Interpretation: Performing Lab: Notes/Report: [facility] ,Lactate/Lactic Acid1.50.4-2.0 mmol/LPerforming Lab:see noteML - [facility] LB Reason For Referral No Information Medications Medication SIG (Take, Route, Frequency, Duration) Notes Start Date End Date Status SEROquel 50 MG 1 tablet at bedtime Orally Once a day; Duration: 30 days 5ActiveBlood Glucose Monitor System w/Deviceuse device Dx:E11.9 daily to monitor blood glucose level03/28/2024tiveMultivitaminActiveMetoprolol Tartrate 50 MG1 tablet with food Orally Twice a day; Duration: 03/19/2024 ActiveHyoscyamine Sulfate 0.125 MG1-2 tabs SL SL every 4 hrs PRN abd pain 11/07/2024tiveTest Strips -Use 1 strip to check glucose daily DX E11.9; Duration: 90 days03/28/2024tiveDrysol 20 %1 application at bedtime Externally BID; Duration: 1 days11/15/2024tiveSimvastatin 20 MG1 tablet Orally Once a day; Duration: 90 daysActiveLantus SoloStar 100 UNIT/MLInject 60 units Subcutaneous twice daily; Duration: 30 daysActiveVictoza 18 MG/3MLInject 0.6mg Subcutaneous once daily; Duration: 90 daysActiveCyclobenzaprine HCl 10 MG1 tablet Orally tid; Duration: 30 06/18/2024tivePen [place] 31G X 6 MMUse 5 needles daily to inject Insulin DX E11.9; Duration: 30 daysActiveCelecoxib 200 MG1 capsule as needed Orally Once a day; Duration: 30 12/13/2024tive Naltrexone HCl 50 MG1/4 tablet Orally Once a day; Duration: 30 10/12/2024 ActiveDiclofenac Sodium 3 %1 application Externally Twice a day07/16/2024tive Protonix 40 MG1 tablet Orally Once a day; Duration: 30 03/23/2024tive Advanced Probiotic-14 -TAKE 1 CAPSULE BY MOUTH DAILY WITH MEALS Oral; Duration: 30 DaysActiveTolterodine Tartrate ER 2 MG1 capsule Orally Once a day; Duration: 30 01/14/2025tiveAcetaminophen-Codeine 300-30 MGTAKE 1 TABLET BY MOUTH EVERY 6 HOURS NEEDED; Duration: 14 01/09/2025tiveMagnesium Oxide 400 MG 1 tablet with food Orally Once a day5Active Social History Tobacco Use: Social History Observation Description Date Details (start date - stop date) Former Smoker 02/14/1981 - 02/14/2010 Tobacco Use/Smoking Question Answer Notes Patient is a former smoker When did you start smoking?02/14/1981When did you stop smoking?01/01/2011How long has it been since you last smoked?> 10 yearsAdditional Findings: Tobacco UserLight cigarette smoker ((1-9 cigs/day)Alcohol Screen (Audit-C) Question Answer Notes Did you have a drink containing alcohol in the p ast year? No Fpnryy8UqhxfpeolwdzleSufvxgxxFGWSL-K (Standard) Question Answer Notes Did you have a drink containing alcohol in the p ast year? No Edolnc7XhjreydasmrxkfZdsqpyfc Problems Problem Type SNOMED Code ICD Code Onset Dates Problem Status W/U Status Risk Notes Problem Obstructive sleep ap nabor syndrome (disorder) (16653221) Obstructive sleep apnea (adult) (pediatric) (G47.33) ActiveconfirmedProblemFibromyalgia (790426248)Fibromyalgia (M79.7)Active confirmedProblemAcute tear of meniscus of left knee (disorder) (82753162210380446)Unspecified tear of unspecified meniscus, current injury, left knee, initial encounter (S83.207A)ActiveconfirmedProblemHyperlipidemia (44114698)Hyperlipidemia (E78.5)ActiveconfirmedProblemOsteoarthritis (970353630) Osteoarthritis (M19.90)ActiveconfirmedProblemAnxiety (57214736)Anxiety (F41.9) ActiveconfirmedProblemHypertriglyceridemia (725838963)Hypertriglyceridemia (E78.1)ActiveconfirmedProblemType II diabetes mellitus well controlled (006970246)Diabetes type 2, controlled (E11.9)ActiveconfirmedProblemDiarrhea (85300955)Diarrhea (R19.7)ActiveconfirmedProblemAcute bronchitis (59027675)Acute bronchitis (J20.9)ActiveconfirmedProblemFatty liver (763258184)Fatty liver (K76.0)ActiveconfirmedProblemWell adult (287798310)Well adult (Z00.00)Active confirmedProblemLeg pain (31514188)Leg pain (M79.606)ActiveconfirmedProblem Dysphagia (76814321)Dysphagia (R13.10)ActiveconfirmedProblemEssential hypertension (13788914)Hypertension, uncontrolled (I10)ActiveconfirmedProblem Erythrocytosis (652630699)Erythrocytosis (D75.1)ActiveconfirmedProblemAcute sinusitis (81493231)Acute sinus infection (J01.90)ActiveconfirmedProblem Gastroenteritis (13266871)Gastroenteritis (K52.9)ActiveconfirmedProblem Overweight (378382630)Over weight (E66.3)ActiveconfirmedProblemLeukocytosis (803405973)Leukocytosis (D72.829)ActiveconfirmedProblemDiaphoresis (63928205) Diaphoresis (R61)ActiveconfirmedProblemAcute urinary tract infection (125462698) Acute UTI (N39.0)ActiveconfirmedProblemHypertensive retinopathy (1049915) Hypertensive retinopathy (H35.039)ActiveconfirmedProblemShaky (R25.1)Active confirmedProblemEssential hypertension (11756006)Essential Hypertension (I10) ActiveconfirmedProblemBruising (684842205)Bruising (T14.8XXA)Activeconfirmed ProblemOsteoarthritis of knee (094049905)Knee osteoarthritis (M17.10)Active confirmedProblemHyperglycemia due to diabetes mellitus (741835925)Hyperglycemia due to diabetes mellitus (E11.65)Activeconfirmed Vital Signs Heart Rate 77 /min 04/09/2024 Rlwnealhcbi68.8 degrees Olzlknglzq09/13/3689Tlfchcnh80 %04/09/2024lood pressure mm Hg01/14/20252842Manqva12 in01/14/2025lood pressure ibtrwhyl724 mm Hg01/14/20257168Kcjcpk262 lbs103/17/2024BMI35.99 kg/m201/14/2025 Procedures Procedure Date Ordered Date Performed Result Body Sit e *CARDIO Stress Test - Lexiscan Nuclear 5 N/ACARDIO Sndtugiagcojsf88/11/2025N/A Encounters Encounter Location Date Provider Diagnosis [facility] [address] [place] [address] 03/27/2024 Quincy Hoy Essential Hypertensi on I10 ; Diabetes type 2, controlled E11.9 and Dysphagia R13.10 [facility] [address] [place] [address] 03/19/2024 Quincy Hoy Chest pain R07.[address] [address] 03/22/2024 Quincy Hoy Abdominal pain 789.[address] [address] 04/09/2024 Quincy Hoy Obstructive sleep ap nabor (adult) (pediatric) G47.33 and Acute bronchitis J20.[address] [address] 07/16/2024 Quincy Hoy Well adult Z00.00 ; Obstructive sleep apnea (adult) (pediatric) G47.33 ; Essential Hypertension I10 ; Hyperlipidemia E78.5 ; Hyperglycemia due to diabetes mellitus E11.65 and Knee osteoarthritis M17.[address] [address] 06/12/2024 Quincy Hoy Over weight E66.3 ; Essential Hypertension I10 ; Diabetes type 2, controlled E11.9 ; Obstructive sleep apnea (adult) (pediatric) G47.33 ; Myalgia M79.10 and Arthralgia M25.[address] [address] 06/19/2024 Quincy Hoy Essential Hypertensi on I10 ; Hyperlipidemia E78.5 and Diabetes type 2, controlled E11.[address] [address] 06/26/2024 Quincy Hoy Essential Hypertensi on I10 [address] [address] 09/06/2024 Quincy Hoy UTI (urinary tract infection), uncomplicated N39.0 and Dysuria R30.[address] [address] 10/22/2024 Quincy Hoy Diaphoresis R61 ; Ac [place] UTI N39.0 ; Shaky R25.1 ; Essential Hypertension I10 and Bruising T14.8XXA [address] [address] 10/30/2024 Quincy Gonzalezy Essential Hypertensi on I10 ; Diabetes type 2, controlled E11.9 and Fatty liver K76.0 [facility] [address] [place] [address] 11/07/2024 Quincy Hoy Gastroenteritis K52. 9 [facility] [address] [place] [address] 11/26/2024 Quincy Hoy Dysuria R30.0 and UT I (urinary tract infection), uncomplicated N39.0 [facility] [address] [place] [address] 12/10/2024 Quincy Hoy Osteoarthritis M19.[address] [address] 12/18/2024 Quincy Hoy Obstructive sleep ap nabor (adult) (pediatric) G47.33 ; Essential Hypertension I10 ; Diabetes type 2, controlled E11.9 and Fibromyalgia M79.7 [facility] [address] [place] [address] 12/28/2024 Quincy Hoy UTI (urinary tract infection) N39.0 ; UTI (urinary tract infection), uncomplicated N39.0 and Dysuria R30.0 [address] [place] [address] 01/14/2025 Quincy Hoy UTI symptoms R39.9 ; UTI (urinary tract infection), uncomplicated N39.0 ; Dysuria R30.0 and Anxiety F41.9 [facility] [address] [place] [address] 03/20/2024 [facility] Gonzalezy [facility] [place] [address] 03/21/2024Doug [facility] [place] [address]/05/2025[facility] [place] [facility] [place] [address]/07/2025[facility] [place] [address]/10/2024Doug [facility] liver K76.0 [facility] [place] [address] 03/27/2024[facility] [facility] [place] [place] [address]/01/2025Doug [facility] [place] [address]/01/2025[facility] [place] [address]/[facility] [facility] [place] [place] [address]/[facility] [facility] [place] [address]/03/2024 Quincy HoyEssential Hypertension I85LwjsfwfCommunity [facility] [facility] [place] [address]/10/2024Doug [facility] [address] [facility] [place] [address]/01/2025Doug [facility] [facility] [place] [address]/Doug [facility] [facility] [place] [address] 06/04/2024[facility] [place] [address]/Doug HoyOver weight E66.3[facility] [address] [facility] [place] [address]/06/2024Doug [facility] [facility] [place] [address]/10/2024Doug [facility] [facility] [place] [place] [address] 06/25/2024Doug HoyEssential Hypertension O35TocgkcgCommunity Hospital[address] [place] [address]/Doug [facility] [place] [address]/[facility] [place] [address]/06/2024 Quincy HoyOver weight E66.3[facility] [facility] [place] [address]/10/2024Doug HoyOver weight E66.3[facility] [facility] [place] [place] [address]/Doug HoyKnee osteoarthritis M17.10[facility] [facility] [place] [address]/Doug HoyOver weight E66.3[facility] [facility] [place] [address]/02/2024Doug [facility] [place] [address]/ Quincy [facility] [facility] [place] [address]/Doug HoyDiabetes type 2, controlled E11.9[facility] [place] [address]/Doug [facility] [place] [address] 09/07/2024[facility] [place] [address]/[facility] [place] [address]/[facility] [facility] [place] [address]/[facility] [place] [address]/09/2024[facility] [place] [address]/09/2024 [facility] [place] [address]/11/2024[facility] [place] [address]/[facility] [place] [address]/Doug [facility] [place] [address]/[facility] [place] [address]/ [facility] [place] [address]/02/2024Doug HoyFatty liver K76.0[facility] [place] [address]/03/2024Doug [facility] [place] [address]/11/2024Doug HoyFatty liver K76.0[facility] [place] [address]/Doug [facility] [place] [address]/Doug yOsteoarthritis M19.90[facility] [place] [address]/05/2024Doug [facility] [place] [address]/06/2024 [facility] [place] [facility] [place] [address]/07/2024Doug HoyFatty liver K76.0[facility] [place] [address]/Doug HoyFatty liver K76.0[facility] [place] [facility] [place] [address]/02/2024 [facility] [place] [address] 01/14/2025Doug Hoy Assessments Encounter Date Diagnosis (ICD Code) Assessment Notes Treatment Notes Treatment Clinical Notes Section Notes 03/27/2024 Diabetes type 2, controlled (ICD -10 - E11.9) 03/27/2024Essential Hypertension (ICD-10 - I10)03/19/2024hest pain (ICD-10 - R07.9)03/22/2024bdominal pain (ICD9-CM - 789.00)04/09/2024Obstructive sleep apnea (adult) (pediatric) (ICD-10 - G47.33)04/09/2024ute bronchitis (ICD-10 - J20.9)07/16/2024Obstructive sleep apnea (adult) (pediatric) (ICD-10 - G47.33) 07/16/2024Well adult (ICD-10 - Z00.00)06/12/2024Over weight (ICD-10 - E66.3) 06/12/2024Essential Hypertension (ICD-10 - I10)06/19/2024Hyperlipidemia (ICD-10 - E78.5)09/06/2024UTI (urinary tract infection), uncomplicated (ICD-10 - N39.0) [...] until they are finished. You can use juio-jhg-phqnhqe acetaminophen or ibuprofen if needed for pain. You should follow up with your Primary Care Physician or return to clinic if not improving in the next 3-5 days.10/22/2024 Diaphoresis (ICD-10 - R61)10/22/2024ute UTI (ICD-10 - N39.0)10/22/2024Shaky (ICD-10 - R25.1)10/22/2024Essential Hypertension (ICD-10 - I10)10/22/2024 Bruising (ICD-10 - T14.8XXA)10/30/2024Diabetes type 2, controlled (ICD-10 - E11.9)10/30/2024Essential Hypertension (ICD-10 - I10)11/07/2024Gastroenteritis (ICD-10 - K52.9)Get plenty of rest. Stay hydrated by sucking on ice chips or taking small sips of water. You can also try drinking clear soda, clear broths or noncaffeinated sports drinks. Stop eating solid foods for a few hours to let your stomach settle. East back into eating by eating bland, cruz-am-etwxma foods like crackers, toast, gelatin, bananas, rice and chicken. Try to avoid foods/substances including dairy products, caffeine, alcohol, nicotine and fatty or highly seasoned foods. Medications such as ibuprofen or tylenol can make your stomach more upset, so use sparingly if at all. Also avoid khfo-nem-aduwxmu anti-diarrheal medications because it can make it harder for your body to eliminate the virus.11/26/2024Dysuria (ICD-10 - R30.0)06/19/2024Essential Hypertension (ICD-10 - I10)06/26/2024Essential Hypertension (ICD-10 - I10) 12/10/2024Osteoarthritis (ICD-10 - M19.90)12/18/2024Obstructive sleep apnea (adult) (pediatric) (ICD-10 - G47.33)12/28/2024UTI (urinary tract infection) (ICD-10 - N39.0)12/18/2024Essential Hypertension (ICD-10 - I10)01/14/2025UTI symptoms (ICD-10 - R39.9)03/25/2024Fatty liver (ICD-10 - K76.0)04/15/2024 Essential Hypertension (ICD-10 - I10)06/13/2024Over weight (ICD-10 - E66.3) 06/25/2024Essential Hypertension (ICD-10 - I10)07/19/2024Over weight (ICD-10 - E66.3)07/23/2024Over weight (ICD-10 - E66.3)08/06/2024Knee osteoarthritis (ICD- 10 - M17.10)08/10/2024Over weight (ICD-10 - E66.3)09/05/2024Diabetes type 2, controlled (ICD-10 - E11.9)11/14/2024Fatty liver (ICD-10 - K76.0)11/23/2024Fatty liver (ICD-10 - K76.0)12/13/2024Osteoarthritis (ICD-10 - M19.90)12/20/2024Fatty liver (ICD-10 - K76.0)01/08/2025Fatty liver (ICD-10 - K76.0)12/18/2024Diabetes type 2, controlled (ICD-10 - E11.9)01/14/2025UTI (urinary tract infection), uncomplicated (ICD-10 - N39.0)Drink [...] until they are finished. You can use uymp-vli-zfhhmcn acetaminophen or ibuprofen if needed for pain. You should follow up with your Primary Care Physician or return to clinic if not improving in the next 3-5 days.12/28/2024UTI (urinary tract infection), uncomplicated (ICD-10 - N39.0) [...] until they are finished. You can use lgqs-sah-tfhnbcy acetaminophen or ibuprofen if needed for pain. You should follow up with your Primary Care Physician or return to clinic if not improving in the next 3-5 days.09/06/2024 Dysuria (ICD-10 - R30.0)11/26/2024UTI (urinary tract infection), uncomplicated (ICD-10 - N39.0)Drink [...] until they are finished. You can use kfpd-xls-dxbtslj acetaminophen or ibuprofen if needed for pain. You should follow up with your Primary Care Physician or return to clinic if not improving in the next 3-5 days.10/30/2024Fatty liver (ICD-10 - K76.0)06/19/2024Diabetes type 2, controlled (ICD-10 - E11.9)06/12/2024Diabetes type 2, controlled (ICD-10 - E11.9) 07/16/2024Essential Hypertension (ICD-10 - I10)03/27/2024Dysphagia (ICD-10 - R13.10)dobule protonix - if not better needs BA swallow upper gi07/16/2024 Hyperlipidemia (ICD-10 - E78.5)06/12/2024Obstructive sleep apnea (adult) (pediatric) (ICD-10 - G47.33)12/18/2024Fibromyalgia (ICD-10 - M79.7)01/14/2025 Dysuria (ICD-10 - R30.0)01/14/2025nxiety (ICD-10 - F41.9)deferso n meds and edexxcyvdv47/14/2025Dysuria (ICD-10 - R30.0)07/16/2024Hyperglycemia due to diabetes mellitus (ICD-10 - [place].65[place] [address]/12/2024Myalgia (ICD-10 - M79.10)06/12/2024rthralgia (ICD-10 - M25.50)07/16/2024Knee osteoarthritis (ICD- 10 - M17.10)refill ulcwdtv1506/19/2024Otherif amitryptalline nt helping - by tuesday - take 2 qt hs12/10/2024OtherRecommended to rest and use a heating pad on the area. Take NSAIDs for pain as needed Plan Of Treatment Pending Test Test Name Order Date CMP (COMPLETE METABOLIC PANEL) CULTURE, STOOL 11/07/2024 CULTURE, STOOL 12/15/2022 HEMOGLOBIN A1C (GLYCO) 06/12/2024 HEMOGLOBIN A1C (GLYCO) 10/22/2024 IRON, TOTAL 10/22/2024 IRON, TOTAL 06/12/2024 LIPID PANEL (CHOL/TRIG/HDL/LDL) 06/13/19 25 LIPID PANEL (CHOL/TRIG/HDL/LDL) 10/23/19 25 VITAMIN D, 25 LEVEL (TOTAL) 06/12/2024 VITAMIN D, 25 LEVEL (TOTAL) 10/22/2024 T3 FREE, T4 FREE and TSH 09/23/2022 CARDIO Echocardiogram 03/27/2024 Urinalysis Microscopic 10/22/2024 UA DIP NONAUTO WO MICRO (07145) - IN OFF ICE 11/26/2024 FECAL OCCULT BLOOD 11/28/2023 UA (Urinalysis, Dipstix only - w/o micro ) 01/14/2025 Stool For Leukocytes 11/07/2024 Lactoferrin, Stool 11/07/2024 LACTATE 10/22/2024 C DIFF TOX PCR STOOL 11/07/2024 C DIFF TOX PCR STOOL 12/15/2022 PT and PTT 03/25/2024 STOOL OCCULT BLOOD 06/12/2024 BNP 09/05/2024 CBC AUTO DIFF 11/28/2023 CBC AUTO DIFF 09/23/2022 CULTURE URINE 10/22/2024 GLYCOHEMOGLOBIN A1C 09/23/2022 LIPID PROFILE 09/23/2022 LIVER PROFILE 03/25/2024 SED RATE WESTERGREN 10/22/2024 THYROID PROFILE WITH TSH 11/28/2023 US LAZARO DOP LEG RT 10/21/2023 THYROID PANEL (T4/TSH/FREE T3) THYROID PANEL (T4/TSH/FREE T3) US renal bladder 12/28/2024 *CARDIO Stress Test - Lexiscan Nuclear 0 03/19/2024 CMP (COMP MET CHAMBERLAIN) w/eGFR CKD-EPI 2024 CMP (COMP MET CHAMBERLAIN) w/eGFR CKD-EPI 2024 CBC WITH DIFF 06/12/2024 CBC WITH DIFF 10/22/2024 Insurance Providers Payer Name Payer Address Payer Phone Subscriber Number Group Number Insured Name Patient Relationship to Insured Coverage Start Date Coverage End Date [employer] [place] [employer] [address] [address] [place] [address] [id number] Ricardo Pinzonelf - patient is the insured Medications Administered Medication Instructions Date of Administration Dosage Notes Dexamethasone, 4mg/mL mgDexamethasone, 4mg/mL mgKetorolac Tromethamine mgKetorolac Wzjeuvqtohpc64/27/202560 mgOrphenadrine Citrate mgPromethazine, 25 mg so33Fsgjemzvdsemw 40 mg/ml 0 mg Medical (General) History Medical History History ICD Code Obstructive sleep apnea (adult) (pediatr ic) G47.33 Over weight E66.3 Osteoarthritis M19.90 Essential Hypertension I10 Well adult Z00.00 Hyperlipidemia E78.5 Diabetes type 2, controlled E11.9 Anxiety F41.9 Hypertensive retinopathy H35.039 Fibromyalgia M79.7 Astigmatism H52.209 Depression F32.9 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 Lap 2009 bilateral oophorectomy hysterectomyLT Knee nerve radiofrequency ablation- Dr. Nassar07/12/2023 Hospitalization History Reason Date(Month/Year) Abnormal Labs 2024 Pleurisy, High BP 03/2024
--- OUTSIDE RECORDS SUMMARY | 2025-01-22 06:55 | XMS_ITS | Encounter Summary ---
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 Name Role Phone Florencio Parry MD Unavailable [phone] Source Comments In the event this information is protected by the Federal Confidentiality of Alcohol and Drug AbusePatient Records regulations: The Federal rules restrict any use of the information to criminally investigate or prosecute any alcohol or drug abuse patient.[facility] Reason for Visit * ReasonCommentsOrders Encounter Details DateTypeDepartmentCare Team (Latest Contact Info)Zmqyziutkzu85/04/2025Telephone Rheumatology [phone] Daniella Claros, MINERALOGY PROFESSOR.[place] [phone] Orders Social History Tobacco UseTypesPacks/DayYears UsedDateSmoking Tobacco: Never AssessedPHQ-2 AnswerDate RecordedPHQ-2 laied57503/12/2024rea Deprivation IndexAnswerDate RecordedNational Score (1-100), lower number is lower bymd981201/17/2025State Score (1-10), lower number is lower jndj38203/20/2024Data from: https://www.neighborhoodatlas.medicine.[facility].edu/. Last address used for [address] [place] [address]894901/17/2025CommentsUnknownSex and Gender InformationValueDate RecordedSex Assigned at BirthNot on fileLegal SexFemale 12/21/2024 3:03 PM ESTGender IdentityNot on fileSexual OrientationNot on file documented as of this encounter Miscellaneous Notes * Telephone Encounter - Amaya Jennings MA - 01/17/2025 4:29 PM EST Faxed Neurology referral to [facility] at fax number provided by patient [phone] documented in this encounter Plan of Treatment DateTypeDepartmentCare Team (Latest Contact Info)Rpjmtzuntsr53/09/2025 2:00 PM ESTOffice [place] [address] Why is my insurance not being billed?02/05/2025 9:30 AM ESTDisUpstate [facility] [address] [address] Daniella Claros, MINERALOGY PROFESSOR.SAND POLISHER [address] [place] [address] 2w f/u vv per walkupdocumented as of this encounter Visit Diagnoses Not on filedocumented in this encounter Care Teams Team MemberRelationshipSpecialtyStart DateEnd Date Florencio Parry MD [address] [place] [address] Family Qlzloskr55/7/25documented as of this encounter
== END 2025-01-22 06:51 | disposition home or self-care (01) ==
LOC: US 06:51
PROVIDERS: PCP Family Medicine; Visit Provider Family Medicine
DX: N39.0 Urinary tract infection, site not specified (principal); N13.30 Unspecified hydronephrosis
CPT/HCPCS: 76770